=== PATIENT | male | born 1955 | race Caucasian/White ===

== ENCOUNTER → 2017-09-18 10:55 | Outpatient (CLI) | payer MEDICARE, SELFPAY | PROVIDERS: Family Provider Family Medicine; PCP Family Medicine; Visit Provider Podiatrist | DX: Z01.818 Encounter for other preprocedural examination (principal); Z01.812 Encounter for preprocedural laboratory examination | CPT/HCPCS: 93005; 93010 ==

== ENCOUNTER 2017-10-03 11:44 | Day surgery (SDC) | payer MEDICARE, SELFPAY ==
[2017-09-19 09:41] VITALS: BMI 36.2
[2017-10-03] VITALS (7 sets, daily range): BP systolic 127–148; BP diastolic 77–95; PULSE 75–108; RESP 12–16; TEMP 36.3–36.6; O2SAT 96–98; BMI 36.2
[2017-10-03] MEDS: LACTATED RINGERS 1,000 ML 42 ML IV (12:38)
[2017-10-03] MEDS: CEFAZOLIN VIAL 1 GM in SODIUM CHLORIDE 0.9% 100 ML 200 ML IV (13:14)
--- NOTE | 2017-10-03 13:16 | PM.PREOP ---
Pre-operative Note Interval Note Pre-op Check: Yes History & Physical Reviewed by Physician Changes: No
--- NOTE | 2017-10-03 13:56 | SUR.OPER ---
Supine on padded OR bed, head on pillow, arms secured on padded arm boards at <90 degrees abduction, right leg under control of surgeon, left leg taped over the blanket to the bed, safety belt at thigh; bump under right hip.
[2017-10-03] MEDS: BUPIVACAINE 0.5% (PF) VIAL 30 ML INJ (14:10)
--- NOTE | 2017-10-03 14:55 | P.OP_ITS ---
Operative Date/Time/Diagnoses Date of procedure: 10/03/17 Time of procedure: 14:49 Pre-op diagnosis: Right great toe joint arthritis and bone spur Post-op diagnosis: same Procedure & Clinicians Procedure: First metatarsophalangeal joint cheilectomy right foot Same procedure as scheduled: Yes Surgeon: Fe Vilchis Click Yes if Unassisted: Yes Anesthesia Type: General Operative Notes Closure Type: primary Specimen(s): none sent Estimated Blood Loss (mL): 50 Blood products transfused: none Procedure in detail: Patient was brought to the operating room and placed on the operating table in the supine position a tourniquet was placed about the calf the foot and ankle were prepped and draped in usual aseptic manner after induction of general anesthesia. The tourniquet was inflated after checking anesthesia incision was made over the dorsal aspect of 1st metatarsophalangeal joint of the right foot the incision was deepened through subcutaneous tissues being careful to identify and retract all vital neural and vascular structures. All bleeders were cauterized and ligated as necessary. Having some trouble with the potential effectiveness of the tourniquet so that original tourniquet was deflated and a sterile tourniquet was placed lower on the ankle this was then inflated and that helped a little with some of compression although he still seemed to have a little bit more bleeding than I would have considered based on the use of the tourniquet. 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 This was also done on the base of the proximal phalanx however there was not nearly as much spurring noted here. The area was irrigated with copious amounts normal sterile saline after a rasp was used to reduce the edges to make them smoother. Range of motion was a little bit better although still stiff but significantly less prominence in regards to the great toe joint and spurring. Tourniquet was deflated and this actually reduced the bleeding deep closure and subcutaneous closure was used with Vicryl and nylon to the skin. Sterile lightly compressive dressing was placed on the foot and he was transferred to the PACU with vital signs stable. Complications: none Condition: stable Disposition: PACU Plan for aftercare: Following a period of postoperative monitoring the patient be discharged home on written and oral postoperative instructions including keeping the dressing dry and intact avoiding significant ambulation to the foot , and elevating the foot when seated home. DVT prevention techniques were reviewed.
--- NOTE | 2017-10-03 16:19 | SUR.PHASEII ---
late enrty: pt wanting to leave, r foot c/d/i, iced, left in stable condition after dorathy, getting his meds from [facility]. [facility] called and picked pt up.
== END 2017-10-03 15:35 | disposition home or self-care (01) ==
PROVIDERS: Family Provider Family Medicine; PCP Family Medicine; Visit Provider Podiatrist
PROC: 0HTRXZZ Resection of Toe Nail, External Approach (ICD-10-PCS; CPT 28289; principal; 2017-10-03 12:45)
PROC: (CPT 28289; 2017-10-03 12:45)
DX: M19.071 Primary osteoarthritis, right ankle and foot (principal); I10 Essential (primary) hypertension; F43.10 Post-traumatic stress disorder, unspecified
CPT/HCPCS: 28289; J0690; J1100; J2405; J2704; J3010

== ENCOUNTER → 2017-12-12 10:59 | Outpatient (CLI) | payer MEDICARE, SELFPAY ==
--- NOTE | 2017-12-12 | DI.RAD.S_ITS ---
PROCEDURE: XR HIP W PEL IF DONE LT 2V INDICATIONS: Pain in unspecified hip TECHNIQUE: 2 views of the hip were acquired. COMPARISON: [facility] [place], [place], BILATERAL HIP 2VW, 02/28/2015, 9:28. [facility], SURYA, HIP 2V RIGHT, 12/22/2013, 12:24. FINDINGS: Bones: No fractures or dislocations. No suspicious bony lesions. The visualized pelvic ring appears intact. Moderate left hip degeneration. Soft tissues: No suspicious soft tissue calcifications or masses. Numerous vascular calcifications IMPRESSION: Moderate left hip degeneration, grossly unchanged since 02/28/15 Dictated by: Travis Gonsalez M.D. on 12/12/2017 at 11:33 Approved by: Travis Gonsalez M.D. on 12/12/2017 at 11:35
== END ==
PROVIDERS: PCP Internal Medicine; Visit Provider Internal Medicine
DX: M25.552 Pain in left hip (principal); M16.12 Unilateral primary osteoarthritis, left hip
CPT/HCPCS: 73502

== ENCOUNTER 2018-03-02 17:32 | Emergency (ER) | payer MEDICARE, MEDICAID, SELFPAY ==
--- NOTE | 2018-03-02 17:39 | DI.RAD.S_ITS ---
PROCEDURE: XR CHEST 1V INDICATIONS: seizure vs syncope TECHNIQUE: One view of the chest was acquired. COMPARISON: [facility], , CHEST 2 VIEW, 11/10/2015, 15:16. FINDINGS: Surgical changes and devices: Cervical fixation plates. Lungs and pleura: Minimal blunting of the costophrenic angles bilaterally, unchanged, likely scarring. Lungs are clear. Mediastinum: Mediastinal contours appear normal. Heart size is normal. Bones and chest wall: No suspicious bony lesions. Overlying soft tissues appear unremarkable. IMPRESSION: No acute pulmonary process. Dictated by: Raeann Wiggins M.D. on 03/02/2018 at 18:11 Approved by: Raeann Wiggins M.D. on 03/02/2018 at 18:11
--- NOTE | 2018-03-02 17:40 | DI.CT.S_ITS ---
PROCEDURE: CT HEAD/BRAIN WO CON INDICATIONS: seizure vs syncope TECHNIQUE: Noncontrast 4.5 mm thick angled axial sections acquired from the foramen magnum to the vertex, with coronal and sagittal reformats. For radiation dose reduction, the following was used: automated exposure control, adjustment of mA and/or kV according to patient size. COMPARISON: [facility], MR, BRAIN WITHOUT CONTRAST, 11/08/2016, 8:42. [facility], CT, HEAD WITHOUT CONTRAST, 02/05/2015, 11:15. FINDINGS: Image quality: Excellent. CSF spaces: Basal cisterns are patent. No extra-axial fluid collections. The ventricles are symmetric in size and shape. Brain: No intracranial bleeds or masses. There is cerebral volume loss for age, with resultant ventricular and sulcal prominence. There are periventricular and deep white matter chronic small vessel ischemic changes. There is intracranial internal carotid artery atherosclerosis. Skull and face: Calvarium and visualized facial bones appear intact, without suspicious lesions. Sinuses: Visualized sinuses and mastoids are clear. IMPRESSION: 1. No acute intracranial process. 2. Moderate atrophy and chronic microvascular ischemic changes. Dictated by: Raeann Wiggins M.D. on 03/02/2018 at 18:04 Approved by: Raeann Wiggins M.D. on 03/02/2018 at 18:05
[2018-03-02 17:45] VITALS: PULSE 95; RESP 17; O2SAT 100
[2018-03-02 17:47] VITALS: BP 181/94; PULSE 97; RESP 22; TEMP 36.9; O2SAT 100; BMI 21.5
[2018-03-02 18:09] LABS: Add Manual Diff / Slide Review NO; Basophils Absolute Auto 0 /uL (0-100); Basophils Percent Auto 0.6 % (0-2); Eosinophils Absolute Auto 0 /uL (0-450); Eosinophils Percent Auto 0.1 % (2-4); Hematocrit 47.3 % (41-53); Lymphocytes Absolute Auto 600 /uL (1100-4500); Lymphocytes Percent Auto 8.2 % (25-40); Mean Corpuscular HGB Conc 33.9 % (30-36); Mean Corpuscular Hemoglobin 33.7 PG (26-34); Mean Corpuscular Volume 99.3 fL (80-100); Monocytes Absolute Auto 500 /uL (0-900); Monocytes Percent Auto 6.7 % (3-14); Neutrophils Absolute Auto 6400 /uL (1500-7000); Neutrophils Percent Auto 84.4 % (50-75); Platelet Count 130 X10^3/uL (150-400); Red Blood Cell Count 4.77 X10^6/uL (4.5-5.9); Red Cell Distribution Width 14.2 % (11.6-14.8); White Blood Cell Count 7.6 X10^3/uL (4.5-11.0)
--- NOTE | 2018-03-02 18:14 | ED_ITS ---
HPI - Seizure General Chief Complaint: Seizure Stated Complaint: seizures Time Seen by Provider: 03/02/18 17:38 Source: patient Mode of arrival: EMS Limitations: no limitations History of Present Illness HPI Narrative: Patient is a 62-year-old male with a history of seizures. CC local primary physician but also a neurologist through the [place] system. He is taking Dilantin 2 times a day. He states that he is taking his seizure medication. States that his last seizure was greater than 1 year ago. He states that today he was going about his normal activities. He went to the bathroom and then had what he thinks is a seizure. He did bite his tongue. He states that he did urinate on himself. Has a bruise on the left side of his face. He states that a friend called EMS. At the time my evaluation he states that he feels almost back to baseline however is just tired and shaky. Brought into the emergency department for evaluation Related Data Home Medications Medication Instructions Recorded Confirmed diclofenac sodium 1 - 4 g TOPICAL SEEINSTR 09/19/17 10/03/17 phenytoin sodium extended 100 mg PO SEEINSTR 09/19/17 10/03/17 trazodone 25 mg PO HS PRN 09/19/17 10/03/17 Allergies Allergy/AdvReac Type Severity Reaction Status Date / Time meperidine [MEPERIDINE] AdvReac Unknown Vomiting Verified 03/02/18 18:23 Review of Systems Constitutional Denies fever(s), Denies headache(s) and Reports weakness Eyes Denies blurry vision, Denies diplopia and Denies eye pain ENT Ears, Nose, Mouth, and Throat: Denies headache(s), Denies disequilibrium, Denies throat swelling and Denies tongue swelling Cardiovascular Denies chest pain and Denies dyspnea Respiratory Denies cough and Denies dyspnea Gastrointestinal Gastrointestinal: Denies abdominal pain, Denies nausea and Denies vomiting Genitourinary Denies dysuria Musculoskeletal Denies back pain, Denies myalgias and Denies arthralgias Integumentary/Breasts Comments: Bruising to the lateral aspect of his left eye Neurologic Denies headache(s), Reports seizure-like activity, Denies paresthesias, Denies disequilibrium and Reports weakness Hematologic/Lymphatic Comments: Not on blood thinners Allergic/Immunologic Denies urticaria, Denies throat swelling and Denies tongue swelling PFSH Medical History Alcohol dependence, uncomplicated (Acute) Broken neck (Acute) Cervical spondylosis with myelopathy (Acute) Chronic toe pain, left foot (Acute) Deficiency of other vitamins (Acute) Depression (Acute) Diarrhea (Acute) Epilepsy, unspecified, not intractable, without status epilepticus (Acute) Essential hypertension, benign (Acute) GERD with esophagitis (Acute) Hallux rigidus (Acute) Hearing loss (Acute) Insomnia, unspecified (Acute) Left elbow fracture (Acute) Liver dysfunction (Acute) Marijuana dependence (Acute) Memory loss (Acute) Multiple falls (Acute) Osteoarthritis (Acute) Osteoarthritis of hips, bilateral (Acute) Osteoarthritis of knees, bilateral (Acute) Osteoarthrosis (Acute) PTSD (post-traumatic stress disorder) (Acute) Post-traumatic stress disorder, unspecified (Acute) Tinnitus (Acute) Surgical History H/O foot surgery (Acute) H/O thumb surgery (Acute) History of colonoscopy (Acute) History of esophagogastroduodenoscopy (EGD) (Acute) Social History household members: none Smoking Status: Current every day smoker Exam Initial Vital Signs Initial Vital Signs: Vital Signs Pulse Rate 95 H 03/02/18 17:45 Respiratory Rate 17 03/02/18 17:45 Pulse Oximetry 100 03/02/18 17:45 Const General: cooperative, healthy appearing, comfortable, well developed, well groomed and No acute distress Orientation: alert, awake and oriented x3 HENMT Head: other (Bruising to the lateral aspect of the left eye) Face and sinus: normal facial exam Mouth: oral mucosae normal Eyes Pupils: PERRL EOM: EOM intact bilaterally Chest Chest: normal inspection of the chest Resp Effort & Inspection: normal respiratory effort Auscultation: clear to auscultation bilaterally Cardio Rate: regular rate Rhythm: regular rhythm Pulses: radial pulses present GI Inspection: non-distended Palpation: soft, No firm and No tender Back/Spine/Pelvis Cervical Spine: No cervical muscular tenderness, No pain with cervical ROM, No cervical spinal tenderness and No step off deformity Thoracic/Lumbar Spine: No thoraco-lumbar spasm and No thoracic spinal tenderness Skin Other: Bruising lateral aspect left Neuro General: alert, awake and oriented x3 Cranial Nerves: CN's II-XI intact bilaterally Cognition: normal cognition Speech: speech normal Gait: normal gait Motor: muscle tone normal throughout Sensory Exam: no sensory deficits noted Extrem General: normal to inspection, full ROM and capillary refill normal Psych Appearance: grossly normal and well kempt Scores Nexus Score for C-Spine Focal Neurologic deficit present: No Midline spinal tenderness present: No Altered level of conciousness present: No Intoxication present: No Distracting Injury Present: No Nexus Criteria for C-spine: 0 Course Orders Ordered: ED Orders 03/02/18 17:20 Basic Metabolic Panel Stat Complete Blood Count AUTO DIFF Stat Ethanol (ETOH) Stat Magnesium Stat Phenytoin / Dilantin Stat Prolactin Stat 03/02/18 17:39 XR chest 1V Stat EKG-12 Lead Stat 03/02/18 17:40 CT head/brain wo con Stat Discontinued Medications Ondansetron HCl (Zofran) 4 mg IV NOW ONE Stop: 03/02/18 18:24 Last Admin: 03/02/18 18:25 Dose: 4 mg Vital Signs - 8 hr 03/02/18 17:45 03/02/18 17:47 03/02/18 18:30 Temperature 98.5 F Pulse Rate 95 H 97 H 93 H Respiratory Rate 17 22 18 Blood Pressure 181/94 H Blood Pressure [Left Arm] 169/105 H Pulse Oximetry 100 100 100 03/02/18 19:00 03/02/18 19:30 Temperature Pulse Rate 92 H 95 H Respiratory Rate 11 L 13 Blood Pressure Blood Pressure [Left Arm] 166/96 H 165/97 H Pulse Oximetry 100 98 MDM - Seizure Lab Data Attestation: I reviewed the patient's lab results. Result diagrams: 03/02/18 17:20 03/02/18 17:20 Lab Results 03/02/18 03/02/18 03/02/18 Range/Units 17:20 17:20 17:20 WBC 7.6 (4.5-11.0) X10^3/uL RBC 4.77 (4.5-5.9) X10^6/uL Hgb 16.0 (13.5-17.5) g/dL Hct 47.3 (41-53) % MCV 99.3 (80-100) fL MCH 33.7 (26-34) PG MCHC 33.9 (30-36) % RDW 14.2 (11.6-14.8) % Plt Count 130 L (150-400) X10^3/uL Neut % (Auto) 84.4 H (50-75) % Lymph % (Auto) 8.2 L (25-40) % [place] % (Auto) 6.7 (3-14) % Eos % (Auto) 0.1 L (2-4) % Baso % (Auto) 0.6 (0-2) % Neut # (Auto) 6400 (1655-0132) /uL Lymph # (Auto) 600 L (0229-2452) /uL [place] # (Auto) 500 (0-900) /uL Eos # (Auto) 0 (0-450) /uL Baso # (Auto) 0 (0-100) /uL Sodium 136 L (137-145) mmol/L Potassium 3.7 (3.4-5.1) mmol/L Chloride 99 (98-107) mmol/L Carbon Dioxide 20 L (22-32) mmol/L BUN 7 L (9-20) mg/dL Creatinine 0.70 (0.66-1.25) mg/dL Estimated GFR > 60.0 (>60) mL/min BUN/Creatinine Ratio 10.0 (6-22) Glucose 220 H (80-110) mg/dL Calcium 9.7 (8.4-10.2) mg/dL Magnesium 2.0 (1.6-2.3) mg/dL Prolactin 16.3 (3.7-17.9) ng/mL Phenytoin < 3.0 L (10-20) ug/mL Ethyl Alcohol Cancelled < 10 Imaging Data Chest x-ray: Radiologist's impression: PROCEDURE: XR CHEST 1V INDICATIONS: seizure vs syncope TECHNIQUE: One view of the chest was acquired. COMPARISON: [facility], , CHEST 2 VIEW, 11/10/2015, 15:16. FINDINGS: Surgical changes and devices: Cervical fixation plates. Lungs and pleura: Minimal blunting of the costophrenic angles bilaterally, unchanged, likely scarring. Lungs are clear. Mediastinum: Mediastinal contours appear normal. Heart size is normal. Bones and chest wall: No suspicious bony lesions. Overlying soft tissues appear unremarkable. IMPRESSION: No acute pulmonary process. Dictated by: Raeann Wiggins M.D. on 03/02/2018 at 18:11 CT scan - head: Radiologist's impression: PROCEDURE: CT HEAD/BRAIN WO CON INDICATIONS: seizure vs syncope TECHNIQUE: Noncontrast 4.5 mm thick angled axial sections acquired from the foramen magnum to the vertex, with coronal and sagittal reformats. For radiation dose reduction, the following was used: automated exposure control, adjustment of mA and/or kV according to patient size. COMPARISON: [facility], MR, BRAIN WITHOUT CONTRAST, 11/08/2016, 8:42. [facility], CT, HEAD WITHOUT CONTRAST, 02/05/2015, 11:15. FINDINGS: Image quality: Excellent. CSF spaces: Basal cisterns are patent. No extra-axial fluid collections. The ventricles are symmetric in size and shape. Brain: No intracranial bleeds or masses. There is cerebral volume loss for age , with resultant ventricular and sulcal prominence. There are periventricular and deep white matter chronic small vessel ischemic changes. There is intracranial internal carotid artery atherosclerosis. Skull and face: Calvarium and visualized facial bones appear intact, without suspicious lesions. Sinuses: Visualized sinuses and mastoids are clear. IMPRESSION: 1. No acute intracranial process. 2. Moderate atrophy and chronic microvascular ischemic changes. Dictated by: Raeann Wiggins M.D. on 03/02/2018 at 18:04 ECG Data Attestation: I personally reviewed and interpreted this ECG as follows: Prior ECG tracings: not available for review Interpretation: Sinus rhythm Ventricular rate at 90 Normal axis Normal QRS Normal QTC No ST T wave changes MDM Narrative Medical decision making narrative: Patient does look like he bit his tongue. He also had a loss of bladder function. He has a history of seizures. His history and physical exam was consistent with seizure-like activity. He states that he is taking his Dilantin however his Dilantin level here in the emergency department was below therapeutic level. Patient stated that he did not need another dose of because he was taking it at home. He ambulated to the bathroom. He drank fluids. Head CT was unremarkable. C-spine cleared by nexus. Will hold on further workup for now. Patient states that he felt well enough to go home. Informed him that he could not drive until he is cleared by his neurologist. Informed him that he needed to contact his neurologist and his primary care doctor tomorrow. He was encouraged to continue to take his Dilantin. Patient expressed understanding and agreement with plan. Discharge Plan Departure Patient Disposition: Home Clinical Impression: Seizure, Contusion of face Discharge Date/Time: 03/02/18 20:00 Interventions: ED Discharge Assessment Last Done: 03/02/18 19:58 Instructions: Seizure Disorder -- Adult, Seizure Safety Precautions-Adult Activity Restrictions/Additional Instructions: I recommend that you continue taking your Dilantin as directed. Because of your seizure your restricted from driving until your cleared by your neurologist. I recommend that tomorrow you contact your neurologist and also your primary care doctor for a follow-up. Return to the emergency department for any new or worsening symptoms Prescriptions: No Action phenytoin sodium extended 100 mg Capsule 100 mg PO SEEINSTR RF: 0 diclofenac sodium 1 % Gel 1 - 4 g TOPICAL SEEINSTR RF: 0 trazodone 50 MG tablet 25 mg PO HS PRN (Reason: Sleep) RF: 0
[2018-03-02 18:18] LABS: Blood Urea Nitrogen 7 mg/dL (9-20); Calcium 9.7 mg/dL (8.4-10.2); Carbon Dioxide 20 mmol/L (22-32); Chloride 99 mmol/L (98-107); Estimated Glomerular Filt Rate > 60.0 mL/min (>60); Ethanol (ETOH) < 10 mg/dL; Glucose 220 mg/dL (80-110); Potassium 3.7 mmol/L (3.4-5.1); Sodium 136 mmol/L (137-145)
[2018-03-02 18:20] LABS: HEMOLYSIS 51 (0-50); Phenytoin / Dilantin < 3.0 ug/mL (10-20)
[2018-03-02] MEDS: ONDANSETRON 4 MG/2 ML INJ IV (18:25)
[2018-03-02 18:30] VITALS: BP 169/105; PULSE 93; RESP 18; O2SAT 100
[2018-03-02 18:54] LABS: Prolactin 16.3 ng/mL (3.7-17.9)
[2018-03-02 19:00] VITALS: BP 166/96; PULSE 92; RESP 11; O2SAT 100
[2018-03-02 19:30] VITALS: BP 165/97; PULSE 95; RESP 13; O2SAT 98
== END 2018-03-02 20:00 | disposition home or self-care (01) ==
PROVIDERS: Emergency Medicine; Emergency Provider Emergency Medicine; Family Provider Family Medicine; PCP Internal Medicine
DX: R56.9 Unspecified convulsions (principal); S00.83XA Contusion of other part of head, initial encounter; W19.XXXA Unspecified fall, initial encounter
CPT/HCPCS: 70450; 71045; 80048; 80185; 80320; 83735; 84146; 85025; 93005; 93010; 96374; 99283; 99285; J2405

== ENCOUNTER → 2018-10-27 10:35 | Outpatient (CLI) | payer MEDICARE, MEDICAID, SELFPAY ==
--- NOTE | 2018-10-27 | DI.RAD.S_ITS ---
PROCEDURE: XR CHEST 2V INDICATIONS: CHEST PAIN TECHNIQUE: 2 views of the chest were acquired. COMPARISON: [facility], CR, XR CHEST 1V, 03/02/2018, 18:12. FINDINGS: Surgical changes and devices: Cervical spinal fixation hardware. Lungs and pleura: Lungs are clear. No pleural effusions or pneumothorax. Mediastinum: Mediastinal contours are normal. Heart size is normal. Chronic appearing left rib fractures. Age indeterminate mild anterior wedging of thoracolumbar vertebra IMPRESSION: No acute disease. Dictated by: Travis Gonsalez M.D. on 10/27/2018 at 11:54 Approved by: Travis Gonsalez M.D. on 10/27/2018 at 11:55
[2018-10-27 11:09] LABS: Add Manual Diff / Slide Review NO; Basophils Absolute Auto 100 /uL (0-100); Basophils Percent Auto 0.7 % (0-2); Eosinophils Absolute Auto 0 /uL (0-450); Eosinophils Percent Auto 0.1 % (2-4); Hematocrit 43.6 % (41-53); Hemoglobin 14.9 g/dL (13.5-17.5); Lymphocytes Absolute Auto 800 /uL (1100-4500); Lymphocytes Percent Auto 11.6 % (25-40); Mean Corpuscular HGB Conc 34.1 % (30-36); Mean Corpuscular Hemoglobin 33.8 PG (26-34); Mean Corpuscular Volume 98.9 fL (80-100); Monocytes Absolute Auto 600 /uL (0-900); Monocytes Percent Auto 7.9 % (3-14); Neutrophils Absolute Auto 5700 /uL (1500-7000); Neutrophils Percent Auto 79.7 % (50-75); Platelet Count 152 X10^3/uL (150-400); Red Blood Cell Count 4.41 X10^6/uL (4.5-5.9); Red Cell Distribution Width 13.3 % (11.6-14.8); White Blood Cell Count 7.1 X10^3/uL (4.5-11.0)
[2018-10-27 11:29] LABS: Blood Urea Nitrogen 6 mg/dL (9-20); Calcium 9.7 mg/dL (8.4-10.2); Carbon Dioxide 26 mmol/L (22-32); Chloride 99 mmol/L (98-107); Cholesterol 196 mg/dL (140-199); Estimated Glomerular Filt Rate > 60.0 mL/min (>60); Glucose 118 mg/dL (80-110); Potassium 4.5 mmol/L (3.4-5.1); Sodium 137 mmol/L (137-145); Triglycerides 57 mg/dL (35-150)
[2018-10-27 11:38] LABS: HEMOLYSIS < 15 (0-50)
[2018-10-27 11:40] LABS: Troponin I < 0.012 ng/mL (0.01-0.034)
[2018-10-27 11:43] LABS: HDL Cholesterol 114 mg/dL (40-60); LDL Cholesterol Calculated 71 mg/dL (<100)
== END ==
PROVIDERS: PCP Internal Medicine; Visit Provider Internal Medicine
DX: R07.9 Chest pain, unspecified (principal)
CPT/HCPCS: 36415; 71046; 80048; 80061; 84484; 85025

== ENCOUNTER → 2019-01-07 08:46 | Outpatient (CLI) | payer MEDICARE, MEDICAID, SELFPAY ==
[2019-01-07 10:03] LABS: Phenytoin / Dilantin < 3.0 ug/mL (10-20)
== END ==
PROVIDERS: PCP Internal Medicine; Visit Provider Internal Medicine
DX: G40.909 Epilepsy, unspecified, not intractable, without status epilepticus (principal)
CPT/HCPCS: 36415; 80185

== ENCOUNTER → 2019-01-18 10:05 | Outpatient (CLI) | payer MEDICARE, MEDICAID, SELFPAY ==
[2019-01-18 11:33] LABS: Phenytoin / Dilantin < 3.0 ug/mL (10-20)
== END ==
PROVIDERS: PCP Internal Medicine; Visit Provider Internal Medicine
DX: G40.909 Epilepsy, unspecified, not intractable, without status epilepticus (principal)
CPT/HCPCS: 36415; 80185

== ENCOUNTER 2019-12-15 09:45 | Emergency (ER) | payer MEDICARE, MEDICAID, SELFPAY ==
[2019-12-15 09:48] VITALS: BP 127/85; PULSE 101; RESP 16; TEMP 36.9; O2SAT 98; BMI 20.7
--- NOTE | 2019-12-15 09:51 | ED_ITS ---
HPI - Extremity Injury (Lower) General Chief Complaint: Extremity Injury, Lower Stated Complaint: right foot toes/injury x1 day Time Seen by Provider: 12/15/19 09:45 Source: patient Mode of arrival: Ambulatory Limitations: no limitations History of Present Illness HPI Narrative: 63-year-old male nonsmoker with history of seizure presents with an accidental injury to his right foot suffered yesterday. He was getting off a chair when he fell forward and buckled his foot a bit. He now has pain with ambulation and ecchymosis on various parts of his foot. He denies any numbness, tingling or weakness. He denies any other injury. He states his symptoms improved when he rests and or elevate his foot. He denies any head, neck or back pain. He denies any history of foot pain. MD complaint: foot injury Onset (ago): day(s) Injury: Right: foot Type of Injury: blunt and inversion Place: home Severity: moderate Relieving factors: immobilization and rest Exacerbating factors: movement and palpation Context: fall and direct blow Associated symptoms: swelling and ambulatory Other symptoms: none Related Data Home Medications Medication Instructions Recorded Confirmed diclofenac sodium 1 - 4 g TOPICAL SEEINSTR 09/19/17 10/03/17 phenytoin sodium extended 100 mg PO SEEINSTR 09/19/17 10/03/17 trazodone 25 mg PO HS PRN 09/19/17 10/03/17 Allergies Allergy/AdvReac Type Severity Reaction Status Date / Time meperidine [MEPERIDINE] AdvReac Unknown Vomiting Verified 03/02/18 18:23 Review of Systems Constitutional Constitutional: Denies chills, Denies fatigue, Denies fever(s), Denies frequent falls, Denies lethargy and Denies weakness Eyes Eyes: Denies change in vision, Denies eye discharge, Denies irritation and Denies loss of vision ENT Ears, Nose, Mouth, and Throat: Denies change in voice, Denies dizziness, Denies neck pain, Denies sore throat and Denies throat swelling Cardiovascular Cardiovascular: Denies chest pain, Denies irregular heart rhythm, Denies lightheadedness, Denies palpitations, Denies dyspnea, Denies dyspnea on exertion and Denies orthopnea Respiratory Respiratory: Denies cough, Denies dyspnea, Denies dyspnea on exertion and Denies wheezing Gastrointestinal Gastrointestinal: Denies abdominal pain, Denies change in bowel habits, Denies diarrhea, Denies nausea and Denies vomiting Musculoskeletal Musculoskeletal: Reports arthralgias, Reports joint swelling, Denies neck pain and Denies numbness Integumentary/Breasts Skin/Breast: Denies pruritus, Denies erythema, Denies rash and Denies wounds Neurologic Neurologic: Denies behavioral changes, Denies confusion, Denies dizziness, Denies frequent falls, Denies loss of vision, Denies numbness and Denies weakness Psychiatric Psychiatric: Denies anxiety, Denies behavioral changes, Denies confusion, Denies depression, Denies homicidal ideation and Denies suicidal ideation Endocrine Endocrine: Denies fatigue, Denies flushing and Denies palpitations Hematologic/Lymphatic Hematologic/Lymphatic: Denies easy bruising Allergic/Immunologic Allergic/Immunologic: Denies urticaria, Denies throat swelling and Denies wheezing Patient History Medical History Alcohol dependence, uncomplicated (Acute) Broken neck (Acute) Cervical spondylosis with myelopathy (Acute) Chronic toe pain, left foot (Acute) Deficiency of other vitamins (Acute) Depression (Acute) Diarrhea (Acute) Epilepsy, unspecified, not intractable, without status epilepticus (Acute) Essential hypertension, benign (Acute) GERD with esophagitis (Acute) Hallux rigidus (Acute) Hearing loss (Acute) Insomnia, unspecified (Acute) Left elbow fracture (Acute) Liver dysfunction (Acute) Marijuana dependence (Acute) Memory loss (Acute) Multiple falls (Acute) Osteoarthritis (Acute) Osteoarthritis of hips, bilateral (Acute) Osteoarthritis of knees, bilateral (Acute) Osteoarthrosis (Acute) Post-traumatic stress disorder, unspecified (Acute) PTSD (post-traumatic stress disorder) (Acute) Tinnitus (Acute) Surgical History H/O foot surgery (Acute) H/O thumb surgery (Acute) History of colonoscopy (Acute) History of esophagogastroduodenoscopy (EGD) (Acute) Social History household members: none Smoking Status: Current every day smoker alcohol intake: current Smoking Status: Current every day smoker alcohol intake frequency: 0-2 drinks per day Substance Use Type: marijuana Exam Narrative Exam Narrative: GEN: AOx3 and in mild distress EYES: Pupils are equal, round, and reactive to light and accommodation. Extraoccular muscles are intact bilaterally. There is no subconjunctival hemorrhage or exudate. CHEST: Lungs are clear to auscultation bilaterally and free of wheezes, rales, or rhonchi. Heart rate is regular rhythm, there are no murmurs, clicks, rubs, or gallops. There is no chest wall tenderness. ABD: Abdomen is soft and nontender. There is no guarding or rebound. Bowel sounds are normal in all 4 quadrants. There is no mass or organomegaly. EXT: Full and slightly painful range of motion of right foot. Tender to pal rhoades over the dorsum of the foot with some ecchymosis overlying the 5th metatarsal as well as multiple toes. He is able to ambulate to the department without much in the way of difficulty SKIN: Warm, pink, and dry. No erythema or rash Initial Vital Signs Initial Vital Signs: Vital Signs Temperature 98.4 F 12/15/19 09:48 Pulse Rate 101 H 12/15/19 09:48 Respiratory Rate 16 12/15/19 09:48 Blood Pressure 127/85 12/15/19 09:48 Pulse Oximetry 98 12/15/19 09:48 Procedures Orthopedic Splinting/Casting Injury #1: Side: left Lower Extremity Injury Location: foot and toe Lower Extremity Immobilizer: post-op shoe Post splinting neuro exam: intact Post splinting vascular exam: intact Placed by: Nursing Course Orders Ordered: ED Orders 12/15/19 10:23 XR foot RT min 3V Stat Vital Signs Vital signs: Vital Signs - 8 hr 12/15/19 09:48 Temperature 98.4 F Pulse Rate 101 H Respiratory Rate 16 Blood Pressure 127/85 Pulse Oximetry 98 MDM - Extremity Injury (Lower) Imaging Data Extremity x-ray #1: Radiologist's Impression: [address] [address] XRay Report Signed Patient: Shine Arthur PMR#: [id number] : 6Acct:[id number] Age/Sex: 63 / MDate of Service: 12/15/19 Loc: ED Accession Number: [id number] Procedure: XR foot RT min 3V Ordering Provider: Dilan Queen D.O. PROCEDURE: XR FOOT RT MIN 3V INDICATIONS: severe pain, bruising after injury TECHNIQUE: 3 views of the foot were acquired. COMPARISON: [facility], , FOOT 3V RIGHT, 12/22/2013, 12:24. [facility], , FOOT 3V LEFT, 12/22/2013, 12:24. FINDINGS: Bones: No fracture or dislocation. The bones have degenerative changes, most prominent at great toe metatarsophalangeal joint. Osteophytes are seen in the great toe interphalangeal joint and metatarsophalangeal joint. There is an avulsion fracture of the lateral aspect of the distal phalanx at the interphalangeal joint. Soft tissues: Soft tissues demonstrate atherosclerotic calcifications in the arteries in the foot. IMPRESSION: 1. Avulsion fracture of the lateral base of the distal phalanx of the great toe at the interphalangeal joint. 2. Severe degenerative changes of the great toe metatarsophalangeal joint. 3. Atherosclerotic calcifications. Dictated by: Rhys Moctezuma M.D. on 12/15/2019 at 10:51 Approved by: Rhys Moctezuma M.D. on 12/15/2019 at 10:59 Discharge Plan Departure Patient Disposition: Home Clinical Impression: Fracture of great toe Qualifiers: Encounter type: initial encounter Fracture type: closed Phalanx: distal Fracture alignment: nondisplaced Laterality: left Qualified Code(s): S92.425A - Nondisplaced fracture of distal phalanx of left great toe, initial encounter for closed fracture Discharge Date/Time: 12/15/19 11:14 Instructions: DI for Toe Fracture Activity Restrictions/Additional Instructions: *You have been diagnosed with [small fracture of your left big toe. The remainder of the bones in your foot x-ray appear unremarkable.] *What to do: *Take medications as directed: Tylenol or Motrin pain *Follow up with your primary care provider in 2-3 days, call for an appointment. Let them know you were seen in the Emergency Department and that we ask that you be seen in follow up *Return to ER if you should have any new, worsening or concerning symptoms, such as [increased pain, swelling, fever, chills or other bothersome symptoms] Prescriptions: No Action phenytoin sodium extended 100 mg Capsule 100 mg PO SEEINSTR RF: 0 diclofenac sodium 1 % Gel 1 - 4 g TOPICAL SEEINSTR RF: 0 trazodone 50 MG tablet 25 mg PO HS PRN (Reason: Sleep) RF: 0 Referrals: Ace Mak MD [Physician] - Julee Bledsoe MD [Primary Care Provider] -
--- NOTE | 2019-12-15 10:23 | DI.RAD.S_ITS ---
PROCEDURE: XR FOOT RT MIN 3V INDICATIONS: severe pain, bruising after injury TECHNIQUE: 3 views of the foot were acquired. COMPARISON: [facility], , FOOT 3V RIGHT, 12/22/2013, 12:24. [facility], , FOOT 3V LEFT, 12/22/2013, 12:24. FINDINGS: Bones: No fracture or dislocation. The bones have degenerative changes, most prominent at great toe metatarsophalangeal joint. Osteophytes are seen in the great toe interphalangeal joint and metatarsophalangeal joint. There is an avulsion fracture of the lateral aspect of the distal phalanx at the interphalangeal joint. Soft tissues: Soft tissues demonstrate atherosclerotic calcifications in the arteries in the foot. IMPRESSION: 1. Avulsion fracture of the lateral base of the distal phalanx of the great toe at the interphalangeal joint. 2. Severe degenerative changes of the great toe metatarsophalangeal joint. 3. Atherosclerotic calcifications. Dictated by: Rhys Moctezuma M.D. on 12/15/2019 at 10:51 Approved by: Rhys Moctezuma M.D. on 12/15/2019 at 10:59
--- NOTE | 2019-12-15 11:13 | PC.NURSE ---
pt has bruising to rt great toe.
== END 2019-12-15 11:14 | disposition home or self-care (01) ==
PROVIDERS: Emergency Provider Emergency Medicine; PCP Internal Medicine
DX: S92.425A Nondisplaced fracture of distal phalanx of left great toe, initial encounter for closed fracture (principal); W19.XXXA Unspecified fall, initial encounter
CPT/HCPCS: 29550; 73630; 99283

== ENCOUNTER 2020-05-21 06:25 | Observation (INO) | payer MEDICARE, MEDICAID, SELFPAY ==
[2020-05-21] VITALS (12 sets, daily range): BP systolic 114–168; BP diastolic 76–116; PULSE 92–135; RESP 14–23; TEMP 35.9–37.3; O2SAT 95–100; BMI 20.7
--- NOTE | 2020-05-21 06:31 | ED.NAVMDI ---
HPI - Nausea/Vomiting/Diarrhea General Chief complaint: Nausea/Vomiting/Diarrhea Stated complaint: Something stuck in throat Time Seen by Provider: 05/21/20 06:27 Source: patient Mode of arrival: Ambulatory Limitations: no limitations History of Present Illness HPI Narrative: 64-year-old male daily smoker presents with a chief complaint of the sensation of foreign body in his throat. He states he was eating some carrots last evening and a piece has become stuck and he has been unable to get liquids down without vomiting ever since. He feels it and points to his upper throat. He denies any fever or chills. He denies any chest pain, cough nor dizziness or lightheadedness. He has been to the operating room twice for removal of esophageal foreign body, most recently in 2016 when he had a piece of chicken easily pushed down into his stomach. No varices or strictures were noted at that time. MD complaint: nausea and vomiting Onset (ago): hour(s) Description of Vomiting: food contents Description of Diarrhea: none Associated Abdominal Pain: No Relieving factors: none Exacerbating factors: eating Associated symptoms: denies other symptoms Related Data Home Medications Medication Instructions Recorded Confirmed phenytoin sodium extended 100 mg PO QID 09/19/17 05/21/20 trazodone 25 mg PO HS PRN 09/19/17 05/21/20 Allergies Allergy/AdvReac Type Severity Reaction Status Date / Time meperidine [MEPERIDINE] AdvReac Unknown Vomiting Verified 05/21/20 08:38 Review of Systems Constitutional Constitutional: Denies chills, Denies fatigue, Denies fever(s), Denies frequent falls, Denies lethargy and Denies weakness Eyes Eyes: Denies change in vision, Denies eye discharge, Denies irritation and Denies loss of vision ENT Ears, Nose, Mouth, and Throat: Denies change in voice, Denies dizziness, Denies neck pain, Denies sore throat and Denies throat swelling Comments: Esophageal foreign body Cardiovascular Cardiovascular: Denies chest pain, Denies irregular heart rhythm, Denies lightheadedness, Denies palpitations, Denies dyspnea, Denies dyspnea on exertion and Denies orthopnea Respiratory Respiratory: Denies cough, Denies dyspnea, Denies dyspnea on exertion and Denies wheezing Gastrointestinal Gastrointestinal: Denies abdominal pain, Denies change in bowel habits, Denies diarrhea, Reports nausea and Reports vomiting Musculoskeletal Musculoskeletal: Denies neck pain and Denies numbness Integumentary/Breasts Skin/Breast: Denies pruritus, Denies erythema, Denies rash and Denies wounds Neurologic Neurologic: Denies behavioral changes, Denies confusion, Denies dizziness, Denies frequent falls, Denies loss of vision, Denies numbness and Denies weakness Psychiatric Psychiatric: Denies anxiety, Denies behavioral changes, Denies confusion, Denies depression, Denies homicidal ideation and Denies suicidal ideation Endocrine Endocrine: Denies fatigue, Denies flushing and Denies palpitations Hematologic/Lymphatic Hematologic/Lymphatic: Denies easy bruising Allergic/Immunologic Allergic/Immunologic: Denies urticaria, Denies throat swelling and Denies wheezing Patient History Medical History Alcohol dependence, uncomplicated Broken neck Cervical spondylosis with myelopathy Chronic toe pain, left foot Deficiency of other vitamins Depression Diarrhea Epilepsy, unspecified, not intractable, without status epilepticus Essential hypertension, benign GERD with esophagitis Hallux rigidus Hearing loss Insomnia, unspecified Left elbow fracture Liver dysfunction Marijuana dependence Memory loss Multiple falls Osteoarthritis Osteoarthritis of hips, bilateral Osteoarthritis of knees, bilateral Osteoarthrosis Post-traumatic stress disorder, unspecified PTSD (post-traumatic stress disorder) Tinnitus Surgical History H/O foot surgery H/O thumb surgery History of colonoscopy History of esophagogastroduodenoscopy (EGD) Social History household members: none Smoking Status: Current every day smoker alcohol intake: current Smoking Status: Current every day smoker alcohol intake frequency: 0-2 drinks per day Substance Use Type: marijuana Exam Narrative Exam Narrative: GENERAL: [64] year old patient appears stated age. Well-nourished, well-developed patient, in mild distress. HEAD: Atraumatic. Normocephalic. EYES: Pupils equal round and reactive. Extraocular motions intact. No scleral icterus. No injection or drainage. ENT: Nose without bleeding, purulent drainage. Throat without erythema, tonsillar hypertrophy or exudate. Airway patent. NECK: Trachea midline. Non tender CARDIOVASCULAR: Regular rate and rhythm without murmurs, gallops, or rubs. RESPIRATORY: Clear to auscultation. Breath sounds equal bilaterally. No wheezes, rales, or rhonchi. GASTROINTESTINAL: Abdomen soft, non-tender, nondistended. EXTREMITIES: No edema or joint tenderness. BACK: Nontender without deformity or crepitance. No flank tenderness. NEURO: AOx3. SKIN: No rash or erythema of visible areas Initial Vital Signs Initial Vital Signs: Vital Signs Temperature 96.7 F L 05/21/20 06:30 Pulse Rate 135 H 05/21/20 06:30 Respiratory Rate 17 05/21/20 06:30 Blood Pressure 168/100 H 05/21/20 06:30 Pulse Oximetry 95 05/21/20 06:30 Course Orders Ordered: Discontinued Medications Glucagon (Glucagon,Human Recombinant 1 Mg/Ml Vial) 1 mg IV NOW ONE Stop: 05/21/20 06:31 Last Admin: 05/21/20 06:37 Dose: 1 mg Documented by: RO Lactated Ringer's (Lactated Ringers) 1,000 mls @ 42 mls/hr IV CONT BELKIS Last Infusion: 05/21/20 09:33 Dose: 0 mls/hr Documented by: Admin: 05/21/20 08:47 Dose: 42 mls/hr Documented by: BRANDY Ondansetron HCl (Ondansetron 4 Mg/2 Ml Inj) 4 mg IV NOW ONE Stop: 05/21/20 07:53 Last Admin: 05/21/20 07:55 Dose: 4 mg Documented by: GRACIA Ondansetron HCl (Ondansetron 4 Mg/2 Ml Inj) 4 mg IV NOW PRN PRN Reason: Nausea And Vomiting Phenytoin (Phenytoin 50 Mg Chew Tab) 100 mg PO NOW ONE Stop: 05/21/20 09:26 Last Admin: 05/21/20 09:48 Dose: 100 mg Documented by: BRANDY Prochlorperazine (Prochlorperazine 10 Mg/2 Ml Vial) 10 mg IV Q6HR PRN PRN Reason: nausea Reevaluation(s) Reevaluation #1: Initially an attempt to drink some water was performed and he kept it down for about 30 seconds before vomiting. Glucagon 1 mg IV was ordered, followed very closely by adan curran which immediately came back up. Surgery paged Consultations Consultation #1: Dr. Zheng on his way in to see patient MDM - Nausea/Vomiting/Diarrhea Lab Data Result diagrams: 05/21/20 06:35 05/21/20 06:35 Labs: Lab Results 05/21/20 05/21/20 05/21/20 Range/Units 06:35 06:35 06:40 WBC 8.2 (4.5-11.0) X10^3/uL RBC 4.60 (4.5-5.9) X10^6/uL Hgb 15.9 (13.5-17.5) g/dL Hct 46.8 (41-53) % MCV 101.6 H (80-100) fL MCH 34.6 H (26-34) PG MCHC 34.0 (30-36) % RDW 13.5 (11.6-14.8) % Plt Count 161 (150-400) X10^3/uL Neut % (Auto) 67.1 (50-75) % Lymph % (Auto) 20.5 L (25-40) % [place] % (Auto) 10.6 (3-14) % Eos % (Auto) 0.9 L (2-4) % Baso % (Auto) 0.9 (0-2) % Neut # (Auto) 5500 (8570-7639) /uL Lymph # (Auto) 1700 (5436-3200) /uL [place] # (Auto) 900 (0-900) /uL Eos # (Auto) 100 (0-450) /uL Baso # (Auto) 100 (0-100) /uL Sodium 138 (137-145) mmol/L Potassium 4.5 (3.4-5.1) mmol/L Chloride 104 (98-107) mmol/L Carbon Dioxide 21 L (22-32) mmol/L BUN 6 L (9-20) mg/dL Creatinine 0.64 L (0.66-1.25) mg/dL Estimated GFR > 60.0 (>60) mL/min BUN/Creatinine Ratio 9.4 (6-22) Glucose 105 (80-110) mg/dL Calcium 9.4 (8.4-10.2) mg/dL SARS-CoV-2 (PCR) Negative (Negative) Discharge Plan Departure Patient Disposition: Admitted to Surgery Clinical Impression: Esophageal foreign body Qualifiers: Encounter type: initial encounter Qualified Code(s): T18.108A - Unspecified foreign body in esophagus causing other injury, initial encounter Admit Date/Time: 05/21/20 06:48 Admit Provider: Jhonathan Zheng
[2020-05-21] MEDS: GLUCAGON,HUMAN RECOMBINANT 1 MG/ML VIAL IV (06:37)
[2020-05-21 06:49] LABS: Add Manual Diff / Slide Review NO; Basophils Absolute Auto 100 /uL (0-100); Basophils Percent Auto 0.9 % (0-2); Eosinophils Absolute Auto 100 /uL (0-450); Eosinophils Percent Auto 0.9 % (2-4); Hematocrit 46.8 % (41-53); Hemoglobin 15.9 g/dL (13.5-17.5); Lymphocytes Absolute Auto 1700 /uL (1100-4500); Lymphocytes Percent Auto 20.5 % (25-40); Mean Corpuscular Hemoglobin 34.6 PG (26-34); Mean Corpuscular Volume 101.6 fL (80-100); Monocytes Absolute Auto 900 /uL (0-900); Monocytes Percent Auto 10.6 % (3-14); Neutrophils Absolute Auto 5500 /uL (1500-7000); Neutrophils Percent Auto 67.1 % (50-75); Platelet Count 161 X10^3/uL (150-400); Red Cell Distribution Width 13.5 % (11.6-14.8); White Blood Cell Count 8.2 X10^3/uL (4.5-11.0)
--- NOTE | 2020-05-21 06:49 | DI.RAD.S_ITS ---
PROCEDURE: XR CHEST 1V INDICATIONS: foreign body TECHNIQUE: One view of the chest was acquired. COMPARISON: [facility], CR, XR CHEST 2V, 10/27/2018, 10:45. FINDINGS: Surgical changes and devices: Anterior cervical discectomy and fusion in the lower cervical spine. No evidence of intrathoracic surgical change or devices. Lungs and pleura: Lungs are clear. No pleural effusions or pneumothorax. Mediastinum: Mediastinal contours appear normal. Heart size is normal. Bones and chest wall: No suspicious bony lesions. Remote healed posterolateral left-sided rib fractures. Degenerative changes of the spine and shoulders. Overlying soft tissues appear unremarkable. No radiopaque foreign body. IMPRESSION: No acute cardiopulmonary abnormality. No radiopaque foreign body. Dictated by: Live Henao M.D. on 05/21/2020 at 7:56 Approved by: Live Henao M.D. on 05/21/2020 at 7:57
--- NOTE | 2020-05-21 06:53 | PC.NURSE ---
Pt ate a carrot last night and states feel like its stuck in his throat. patient unable to drink water but manage saliva. Tried glucagon with soda with no success.
[2020-05-21 07:00] LABS: BUN Creatinine Ratio 9.4 (6-22); Blood Urea Nitrogen 6 mg/dL (9-20); Calcium 9.4 mg/dL (8.4-10.2); Carbon Dioxide 21 mmol/L (22-32); Chloride 104 mmol/L (98-107); Estimated Glomerular Filt Rate > 60.0 mL/min (>60); Glucose 105 mg/dL (80-110); HEMOLYSIS 19 (0-50); Potassium 4.5 mmol/L (3.4-5.1); Sodium 138 mmol/L (137-145)
--- NOTE | 2020-05-21 07:31 | P.HP_ITS ---
History of Present Illness History of Present Illness Date Patient Seen: 05/21/20 Time Patient Seen: 07:31 Chief complaint: Something stuck in throat Narrative: The patient the patient is a gentleman here for because he was eating and has a piece of food stuck in his esophagus. He has had t this happen once before. He denies chest pain. The food feels like it is stuck in his lower chest area. He did not respond to noninvasive measures to get the food to pass. Patient History Medical History Alcohol dependence, uncomplicated Broken neck Cervical spondylosis with myelopathy Chronic toe pain, left foot Deficiency of other vitamins Depression Diarrhea Epilepsy, unspecified, not intractable, without status epilepticus Essential hypertension, benign GERD with esophagitis Hallux rigidus Hearing loss Insomnia, unspecified Left elbow fracture Liver dysfunction Marijuana dependence Memory loss Multiple falls Osteoarthritis Osteoarthritis of hips, bilateral Osteoarthritis of knees, bilateral Osteoarthrosis Post-traumatic stress disorder, unspecified PTSD (post-traumatic stress disorder) Tinnitus Surgical History H/O foot surgery H/O thumb surgery History of colonoscopy History of esophagogastroduodenoscopy (EGD) Family & Social History Social History: household members none Safety & Behavioral: Feels Safe in Current Yes Environment Tobacco & Substance use: Smoking Status Current every day smoker alcohol intake frequency 0-2 drinks per day Substance Use Type marijuana Meds Home Medications and Allergies Home Medications Medication Instructions Recorded Confirmed Type diclofenac sodium 1 - 4 g TOPICAL SEEINSTR 09/19/17 10/03/17 History phenytoin sodium extended 100 mg PO SEEINSTR 09/19/17 10/03/17 History trazodone 25 mg PO HS PRN 09/19/17 10/03/17 History Allergies Allergy/AdvReac Type Severity Reaction Status Date / Time meperidine [MEPERIDINE] AdvReac Unknown Vomiting Verified 03/02/18 18:23 Review of Systems Review of Systems Narrative: Patient has no cough cold or asthma. No chest pain or prior heart problems. No black or bloody bowel movements. Last colonoscopy was about a year ago. No syncope but he does have seizures. He normally takes medicine for it starting in the morning but has not taken his morning dose. Exam Vital Signs (past 8 hours): - 05/21/20 06:30 05/21/20 06:59 Temperature 96.7 F L Pulse Rate 135 H 95 H Respiratory Rate 17 Blood Pressure 168/100 H Pulse Oximetry 95 100 Oxygen Delivery Method Room Air Narrative Exam Narrative: Cooperative gentleman shaking visibly in no apparent distress.(the patient states that he does not always shake but sometimes he does it) eyes are nonicteric. No nodes in the neck supraclavicular areas. Oral m [place] is dry. No open lesions seen. Lungs are clear to auscultation. No rales or rhonchi. Heart regular rate and rhythm without murmur gallop. Abdomen is scaphoid soft. The doughy. Very little muscle tone. No palpable masses or tenderness. Patient is alert and oriented. Speech rate and content are appropriate. Objective Labs Result Diagrams: 05/21/20 06:35 05/21/20 06:35 Labs: Laboratory Results - last 24 hr 05/21/20 05/21/20 06:35 06:35 WBC 8.2 RBC 4.60 Hgb 15.9 Hct 46.8 MCV 101.6 H MCH 34.6 H MCHC 34.0 RDW 13.5 Plt Count 161 Neut % (Auto) 67.1 Lymph % (Auto) 20.5 L [place] % (Auto) 10.6 Eos % (Auto) 0.9 L Baso % (Auto) 0.9 Neut # (Auto) 5500 Lymph # (Auto) 1700 [place] # (Auto) 900 Eos # (Auto) 100 Baso # (Auto) 100 Sodium 138 Potassium 4.5 Chloride 104 Carbon Dioxide 21 L BUN 6 L Creatinine 0.64 L Estimated GFR > 60.0 BUN/Creatinine Ratio 9.4 Glucose 105 Calcium 9.4 Assessment & Plan Assessment & Plan narrative: Patient with food obstructing his esophagus. He thinks it is a carrot. I talked to him about an EGD. Will do this under general anesthesia at a protect his airway. All questions were answered. Risks of bleeding perforation were discussed. Also the possibility of aspiration. Seizure meds after obstruction is cleared.
[2020-05-21 07:32] LABS: COVID19 - ADMIT (NP swab/PCR) Negative (Negative)
--- NOTE | 2020-05-21 07:38 | PM.PREOP ---
Pre-operative Note COVID-19 COVID-19 status: Negative Result date/Date tested (Pos, Neg/Pending): 05/21/20 Interval Note History & Physical reviewed/Exam performed by Physician: Yes Changes to H&P: No
[2020-05-21] MEDS: ONDANSETRON 4 MG/2 ML INJ IV (07:55)
[2020-05-21] MEDS: LACTATED RINGERS 1,000 ML 42 ML IV (08:47)
--- NOTE | 2020-05-21 09:19 | PM.OP.ENDO ---
Operative Date/Time/Diagnoses Date of procedure: 05/21/20 Time of procedure: 09:19 Pre-op diagnosis: Obstructed esophagus from food Post-op diagnosis: same Procedure & Clinicians Study performed: EGD with removal of foreign body Same procedure as scheduled: Yes Indications: Unable to swallow our vomit due to food stuck in his esophagus Surgeon: Jhonathan Zheng Procedure Notes SCOAP/Timeout: Performed Procedure in detail: The patient underwent general endotracheal anesthesia to protect his airway. A bite block was inserted and the scope was advanced through it into the esophagus. The esophagus was unremarkable until I reach the distal esophagus. There was a piece of food that appeared to be meat wedged into the esophagus. A snare was inserted and I was able to grasp it and pull the scope snare and piece of food out through the mouth. I reinserted the scope. The esophagus was now normal except for some minor irritation with the food had been lodged.. GE junction was noted at 40 cm from the incisors.. The stomach insufflated well. There were no lesions seen in the body, antrum or at the incisura. The pyloric channel was patent. The duodenum was unremarkable to the 3rd part. The scope was brought back into the stomach and retroflexed. The proximal stomach normal in appearance. The scope was straightened and brought out through the esophagus again. No lesions were seen. The scope was removed and the patient tolerated the procedure well. Scope withdrawal time: Not applicable Sedation minutes: 0 (Patient underwent general anesthesia to protect his airway from aspiration of the material above the obstructed food.) Findings: other findings (Food obstructed by a large piece of meat.) Specimen(s): none sent Complications: none Post-procedure Recommendations: Other recommendation (To your food very well. Do not swallow large pieces of food. Cut your meat into smaller pieces before thoroughly chewing it in swallowing it..) Follow up: as needed Disposition: PACU
[2020-05-21] MEDS: PHENYTOIN 50 MG CHEW TAB 100 MG PO (09:48)
--- NOTE | 2020-05-21 09:57 | CM.DPNOTE ---
DCPlanning note: Case received, discussed in Team Rounds. RN coordinator Cassie clarified that pt has been taken directly to the OR for removal of foreign body (documentation states large piece of meat in esophagus) and that he was discharging directly form surgery area. His ride is here to pick him up. He did not admit to room 201 as intially anticipated.
== END 2020-05-21 09:56 | disposition home or self-care (01) ==
LOC: ED 06:42 → AC 06:50
PROVIDERS: Admitting Provider Specialist; Emergency Provider Emergency Medicine; PCP Internal Medicine; Referring Provider Emergency Medicine; Visit Provider Specialist
PROC: 0DJ08ZZ Inspection of Upper Intestinal Tract, Via Natural or Artificial Opening Endoscopic (ICD-10-PCS; CPT 43235; principal; 2020-05-21 08:00)
DX: T18.128A Food in esophagus causing other injury, initial encounter (principal); F10.20 Alcohol dependence, uncomplicated; F17.210 Nicotine dependence, cigarettes, uncomplicated; Z20.822 Contact with and (suspected) exposure to COVID-19
CPT/HCPCS: 43247; 36415; 71045; 80048; 85025; 87635; 96361; 96374; 96375; 99218; 99284; G0378; J0330; J1610; J2250; J2405; J2704

== ENCOUNTER 2020-07-19 10:02 | Emergency (ER) | payer MEDICARE, MEDICAID, SELFPAY ==
[2020-07-19 10:17] VITALS: BP 163/95; PULSE 101; RESP 14; TEMP 37.2; O2SAT 96; BMI 20.7
--- NOTE | 2020-07-19 10:25 | DI.RAD.S_ITS ---
PROCEDURE: XR RIBS LT MIN 3V W CXR1V INDICATIONS: fall with left posterior rib pain TECHNIQUE: 2 views of the left ribs were acquired, along with a single view chest. COMPARISON: [facility], CR, XR CHEST 1V, 03/02/2018, 18:12. [facility], CR, XR CHEST 1V, 05/21/2020, 6:54. FINDINGS: Surgical changes and devices: ACDF. Bones and chest wall: No fractures or dislocations. No suspicious bony lesions. Overlying soft tissues appear unremarkable. Lungs and pleura: Skin BB marker overlying the inferior left ribs. No acute displaced fracture. 8 in 9 left rib fractures which appear subacute or chronic. No pleural effusions or pneumothorax. Lungs appear clear. No consolidation. Left arm cerclage wires. Mediastinum: Mediastinal contours appear normal. Heart size is normal. IMPRESSION: No acute displaced fracture seen. Chronic left 8-9th rib fractures. Lungs appear clear. Dictated by: Josh Vang M.D. on 07/19/2020 at 11:03 Approved by: Josh Vang M.D. on 07/19/2020 at 11:09
--- NOTE | 2020-07-19 11:14 | ED.FALL ---
HPI - Fall General Chief Complaint: Fall Stated Complaint: possible broken ribs Time Seen by Provider: 07/19/20 11:10 Source: patient Mode of arrival: Ambulatory Limitations: no limitations History of Present Illness HPI Narrative: Patient is a 64-year-old male here for evaluation of left-sided rib pain. He states that last evening he tripped and fell hitting his left side on the coffee table. He did not hit his head. He is not on blood thinners. There was no loss of consciousness. Reports no other injuries from the event. Since that time he has had discomfort on his left ribs specifically with taking deep breaths and also touching the area. Has not tried anything for the symptoms prior to arrival. Related Data Home Medications Medication Instructions Recorded Confirmed phenytoin sodium extended 100 mg PO QID 09/19/17 05/21/20 trazodone 25 mg PO HS PRN 09/19/17 05/21/20 Previous Rx's Medication Instructions Recorded hydrocodone-acetaminophen 1 tab PO Q8H PRN #6 tab 07/19/20 Allergies Allergy/AdvReac Type Severity Reaction Status Date / Time meperidine [MEPERIDINE] AdvReac Unknown Vomiting Verified 07/19/20 10:27 Review of Systems Constitutional Constitutional: Denies fever(s) Cardiovascular Cardiovascular: Reports chest pain (Left-sided flank pain) Respiratory Respiratory: Reports pain on inspiration Gastrointestinal Gastrointestinal: Denies nausea and Denies vomiting Integumentary/Breasts Comments: No bruising Hematologic/Lymphatic On Anticoagulants: No Allergic/Immunologic Allergic/Immunologic: Reports system reviewed and no additional complaints, except as documented Patient History Medical History Alcohol dependence, uncomplicated Broken neck Cervical spondylosis with myelopathy Chronic toe pain, left foot Deficiency of other vitamins Depression Diarrhea Epilepsy, unspecified, not intractable, without status epilepticus Essential hypertension, benign GERD with esophagitis Hallux rigidus Hearing loss Insomnia, unspecified Left elbow fracture Liver dysfunction Marijuana dependence Memory loss Multiple falls Osteoarthritis Osteoarthritis of hips, bilateral Osteoarthritis of knees, bilateral Osteoarthrosis Post-traumatic stress disorder, unspecified PTSD (post-traumatic stress disorder) Tinnitus Surgical History H/O foot surgery H/O thumb surgery History of colonoscopy History of esophagogastroduodenoscopy (EGD) Social History household members: none Smoking Status: Current every day smoker alcohol intake: current Smoking Status: Current every day smoker alcohol intake frequency: 3 or more drinks per day Substance Use Type: marijuana Exam Initial Vital Signs Initial Vital Signs: Vital Signs Temperature 98.9 F 07/19/20 10:17 Pulse Rate 101 H 07/19/20 10:17 Respiratory Rate 14 07/19/20 10:17 Blood Pressure 163/95 H 07/19/20 10:17 Pulse Oximetry 96 07/19/20 10:17 Const General: cooperative Limitations: mental status not altered HENMT Head: normal to inspection and normocephalic Chest Chest: No crepitus and tenderness (Left-sided flank) Resp Effort & Inspection: normal respiratory effort Auscultation: clear to auscultation bilaterally Cardio Rate: regular rate Rhythm: regular rhythm Skin Lesions: no lesions Rashes: no rashes Neuro General: patient alert and patient awake Cognition: normal cognition Speech: speech normal Extrem General: capillary refill normal Psych Appearance: grossly normal and well kempt Course Orders Ordered: ED Orders 07/19/20 11:15 RT Consult Eval and Treat Now Discontinued Medications Hydrocodone Bitart/Acetaminophen (Hydrocodone/Acet 5/325 Tablet) 1 tab PO NOW ONE Stop: 07/19/20 11:16 Last Admin: 07/19/20 12:08 Dose: 1 tab Documented by: TATYANA Ondansetron HCl (Ondansetron 8 Mg Tablet) 4 mg PO NOW ONE Stop: 07/19/20 11:52 Last Admin: 07/19/20 11:55 Dose: Not Given Documented by: SAIDA Ondansetron HCl (Ondansetron 4 Mg Odt) 4 mg SL NOW ONE Stop: 07/19/20 11:55 Last Admin: 07/19/20 12:09 Dose: 4 mg Documented by: TATYANA Vital Signs Vital signs: Vital Signs - 8 hr 07/19/20 11:59 Pulse Rate 98 H Respiratory Rate 18 Blood Pressure 164/109 H Pulse Oximetry 99 MDM - Fall Imaging Data Rib x-rays: Radiologist's Impression: [address] [id number] ReportSigned Patient: Shine Arthur PMR#: [id number]: 6Acct:[id number]/Sex: 64 / MDate of Service: 07/19/20Loc: EDAccession Number: [id number] Procedure: XR ribs LT min 3V w CXR1V Ordering Provider: Jostin Diallo D.O. PROCEDURE: XR RIBS LT MIN 3V W CXR1V INDICATIONS: fall with left posterior rib pain TECHNIQUE: 2 views of the left ribs were acquired, along with a single view chest. COMPARISON: [facility], CR, XR CHEST 1V, 03/02/2018, 18:12. [facility], CR, XR CHEST 1V, 05/21/2020, 6:54. FINDINGS: Surgical changes and devices: ACDF. Bones and chest wall: No fractures or dislocations. No suspicious bony lesions. Overlying soft tissues appear unremarkable. Lungs and pleura: Skin BB marker overlying the inferior left ribs. No acute displaced fracture. 8 in 9 left rib fractures which appear subacute or chronic. No pleural effusions or pneumothorax. Lungs appear clear. No consolidation. Left arm cerclage wires. Mediastinum: Mediastinal contours appear normal. Heart size is normal. IMPRESSION: No acute displaced fracture seen. Chronic left 8-9th rib fractures. Lungs appear clear. Dictated by: Josh Vang M.D. on 07/19/2020 at 11:03 Approved by: Josh Vang M.D. on 07/19/2020 at 11:09 MDM Narrative Medical decision making narrative: Patient is no respiratory distress. He is tender to palpation over the areas with a chronic rib fractures were seen on the rib x-ray. The underlying lung appears well. There no new displaced rib fractures seen. Had a discussion with the patient regarding this. We discussed that there could potentially be a nondisplaced fracture that we are missing on the x-ray however treatment for bruised rib verses this type fracture his conservative treatment. We discussed the importance of taking deep breaths and strict return precautions. He expressed understanding and agreement. Discharge Plan Departure Patient Disposition: Home Clinical Impression: Contusion of rib on left side Instructions: DI for Rib Contusion Activity Restrictions/Additional Instructions: There were no displaced fractures of the ribs noted on the x-rays however there potentially could be a nondisplaced fracture. Unfortunately these types of injuries can be very painful especially for coughing or seizing. Sometimes holding this area when you cough or sneeze can be helpful. Contact your primary provider for follow-up. Return to the emergency department for any fevers or problems breathing. Prescriptions: New hydrocodone-acetaminophen 5-325 mg tablet 1 tab PO Q8H PRN (Reason: pain) Qty: 6 RF: 0 No Action phenytoin sodium extended 100 mg Capsule 100 mg PO QID RF: 0 trazodone 50 MG tablet 25 mg PO HS PRN (Reason: Sleep) RF: 0 Referrals: Julee Bledsoe MD [Primary Care Provider] -
[2020-07-19 11:59] VITALS: BP 164/109; PULSE 98; RESP 18; O2SAT 99
[2020-07-19] MEDS: HYDROCODONE/ACET 5/325 TABLET 1 TAB PO (12:08)
[2020-07-19] MEDS: ONDANSETRON 4 MG ODT SL (12:09)
== END 2020-07-19 12:16 | disposition home or self-care (01) ==
PROVIDERS: Emergency Provider Emergency Medicine; PCP Internal Medicine
DX: S20.212A Contusion of left front wall of thorax, initial encounter (principal); W19.XXXA Unspecified fall, initial encounter
CPT/HCPCS: 71101; 99283

== ENCOUNTER 2022-01-07 10:02 | Emergency (ER) | payer MEDICARE, MEDICAID, SELFPAY ==
[2022-01-07 10:30] VITALS: BP 124/88; PULSE 70; RESP 18; TEMP 36.7; O2SAT 99; BMI 20.7
--- NOTE | 2022-01-07 10:41 | DI.CT.S_ITS ---
PROCEDURE: CT HEAD/BRAIN WO CON INDICATIONS: Trauma TECHNIQUE: Noncontrast 4.5 mm thick angled axial sections acquired from the foramen magnum to the vertex, with coronal and sagittal reformats. For radiation dose reduction, the following was used: automated exposure control, adjustment of mA and/or kV according to patient size. COMPARISON: [facility], CT, CT HEAD/BRAIN WO CON, 03/02/2018, 17:40. FINDINGS: Image quality: Excellent. CSF spaces: Basal cisterns are patent. No extra-axial fluid collections. The ventricles are symmetric in size and shape. Brain: No intracranial bleeds or masses. There is cerebral volume loss for age, with resultant ventricular and sulcal prominence. There are periventricular and deep white matter chronic small vessel ischemic changes. There is intracranial internal carotid artery atherosclerosis. Skull and face: Calvarium and visualized facial bones appear intact, without suspicious lesions. Sinuses: Visualized sinuses and mastoids are clear. IMPRESSION: No evidence acute intracranial process. Dictated by: Diego Ring M.D. on 01/07/2022 at 11:28 Approved by: Diego Ring M.D. on 01/07/2022 at 11:28
--- NOTE | 2022-01-07 10:41 | DI.RAD.S_ITS ---
PROCEDURE: XR SHOULDER RT MIN 2V INDICATIONS: fall, right shoulder pain, right lat neck pain, ecchymosis TECHNIQUE: 3 views of the shoulder were acquired. COMPARISON: None. FINDINGS: Bones: Comminuted, displaced distal clavicular fracture. No other fractures or dislocations. No suspicious bony lesions. Visualized ribs appear intact. Soft tissues: No suspicious soft tissue calcifications. IMPRESSION: Comminuted, displaced distal clavicular fracture. Dictated by: Diego Ring M.D. on 01/07/2022 at 11:19 Approved by: Diego Ring M.D. on 01/07/2022 at 11:20
--- NOTE | 2022-01-07 10:41 | DI.CT.S_ITS ---
PROCEDURE: CT CERVICAL SPINE WO CON INDICATIONS: Trauma TECHNIQUE: Noncontrast 3 mm thick sections acquired from the skull base to the T4 level. Sagittal and coronal reformats were then constructed. For radiation dose reduction, the following was used: automated exposure control, adjustment of mA and/or kV according to patient size. COMPARISON: [facility], CT, CT CHEST ABD PEL W CON, 01/07/2022, 11:05. FINDINGS: Image quality: Excellent. Bones: No fractures or dislocations. Visualized superior ribs are intact. There has been previous ACDF at C5 through C7 with C6 corpectomy. There is bone graft material which has an oblique configuration, coursing along the previous location of C6. Some of the graft extends into the canal at its superior aspect. It does not result in canal stenosis, as the canal measures at least 10 mm at its narrowest point. There is separation of the anterior plate from C5, which is likely a chronic finding. The C5 screws and C7 screws do not have loosening. There is no hardware fracture noted. Prominent facet arthropathy at C3-C4 bilaterally. Soft tissues: Prevertebral soft tissues are normal in thickness. No paravertebral hematomas. No apical pneumothoraces. IMPRESSION: 1. No evidence of acute cervical fracture or dislocation. 2. Remote ACDF at C5 through C7 with C6 corpectomy. As described, there is a bone graft which has an oblique configuration, with its superior aspect extending slightly into the canal, without canal stenosis. There is also separation between the anterior plate and C5 vertebral body. Although, there is no evidence of hardware loosening. Comment: The findings at C5 through C7 are most likely chronic findings. However, recommend careful correlation for presence or absence of new symptomatology, and comparison to prior studies from other institutions which would determine the chronicity or acuity of the findings at these levels. Dictated by: Diego Ring M.D. on 01/07/2022 at 11:56 Approved by: Diego Ring M.D. on 01/07/2022 at 12:14
--- NOTE | 2022-01-07 10:41 | DI.CT.S_ITS ---
PROCEDURE: CT CHEST ABD PEL W CON INDICATIONS: Trauma TECHNIQUE: After the administration of intravenous contrast, 5 mm thick sections acquired from the lung apices to the symphysis. 2.5 mm thick coronal and sagittal reformats were acquired. Additional 7 mm thick coronal maximum intensity projection (MIP) reformats acquired through the lungs. Optional 10-minute delayed imaging may be performed from the kidneys to the bladder. For radiation dose reduction, the following was used: automated exposure control, adjustment of mA and/or kV according to patient size. COMPARISON: , CT, CHEST/ABD/PEL WITH CONTRAST, 06/12/2012, 8:14. FINDINGS: Image quality: Excellent. CHEST: Lungs: No pulmonary contusions or lacerations. 3 mm nodule, right lower lobe, image 264/3. This is unchanged allowing for differences in technique. 5 mm pulmonary nodule, periphery of lingula, image 233/3. This is also unchanged allowing for differences in technique. These are both benign lesions. No acute airspace opacities. No pneumothorax or hemothorax. Central and peripheral airways appear patent and normal in caliber. Mediastinum: No mediastinal hematomas. Heart size is normal. Severe coronary artery calcifications. No pericardial effusion. Thoracic aorta and pulmonary arteries demonstrate normal size and enhancement. No mediastinal or hilar adenopathy. Esophagus is normal in caliber. No hiatal hernia. Chest wall: Old healed left rib fractures. No acute displaced rib fractures identified.. No subcutaneous emphysema. No axillary or supraclavicular adenopathy. Thyroid gland is unremarkable as visualized. ABDOMEN: Solid organs: Liver is normal in size and enhancement, without lacerations. Moderate diffuse hepatic steatosis. Gallbladder is unremarkable without calcified gallstones. Biliary system is non-dilated. Pancreas enhances normally, without transection. Spleen is normal in size and enhancement, without lacerations. No adrenal hematomas. Both kidneys enhance normally, without hydronephrosis or lacerations. Peritoneum and bowel: No free fluid or air. Unenhanced bowel loops demonstrate normal wall thickness and caliber. Nodes and vessels: No retroperitoneal or mesenteric adenopathy. Aorta and inferior vena cava are normal in size and enhancement. Miscellaneous: No ventral hernias. PELVIS: Genitourinary: Diffuse bladder wall thickening. Prostate is enlarged. Miscellaneous: No inguinal hernias or adenopathy. Bones: Pelvic ring and hip joints appear intact. No acute compression fractures. Chronic compressions of T12 and L1. IMPRESSION: 1. No evidence of significant sequelae of acute trauma in the chest, abdomen, and pelvis. 2. Severe coronary artery calcifications. 3. Moderate hepatic steatosis. 4. Prostate enlargement with diffuse bladder wall thickening. 5. Old compression fractures and old left rib fractures. Dictated by: Diego Ring M.D. on 01/07/2022 at 11:49 Approved by: Diego Ring M.D. on 01/07/2022 at 11:56
[2022-01-07 11:17] LABS: Add Manual Diff / Slide Review NO; Basophils Absolute Auto 0 /uL (0-100); Basophils Percent Auto 0.4 % (0-2); Eosinophils Absolute Auto 100 /uL (0-450); Eosinophils Percent Auto 1.2 % (2-4); Hematocrit 37.6 % (41-53); Hemoglobin 13.1 g/dL (13.5-17.5); Lymphocytes Absolute Auto 1500 /uL (1100-4500); Lymphocytes Percent Auto 20.7 % (25-40); Mean Corpuscular HGB Conc 34.8 % (30-36); Mean Corpuscular Hemoglobin 34.5 PG (26-34); Mean Corpuscular Volume 99.1 fL (80-100); Monocytes Absolute Auto 1100 /uL (0-900); Monocytes Percent Auto 14.8 % (3-14); Neutrophils Absolute Auto 4700 /uL (1500-7000); Neutrophils Percent Auto 62.9 % (50-75); Platelet Count 107 X10^3/uL (150-400); Red Cell Distribution Width 12.8 % (11.6-14.8); White Blood Cell Count 7.5 X10^3/uL (4.5-11.0)
[2022-01-07 11:23] LABS: Prothrombin Time 11.2 SECONDS (10.1-12.7)
[2022-01-07 11:25] LABS: PTT Partial Thromboplastin Tim 26 SECONDS (26-36)
[2022-01-07 11:27] LABS: Alanine Aminotransferase 27 IU/L (<50); Albumin 3.7 g/dL (3.5-5.0); Alkaline Phosphatase 65 U/L (38-126); Aspartate Aminotransferase 40 IU/L (17-59); BUN Creatinine Ratio 10.2 (6-22); Bilirubin Total 0.6 mg/dL (0.2-1.3); Blood Urea Nitrogen 5 mg/dL (9-20); Calcium 8.5 mg/dL (8.4-10.2); Carbon Dioxide 23 mmol/L (22-32); Chloride 92 mmol/L (98-107); Creatine Kinase 50 U/L (55-170); Estimated Glomerular Filt Rate > 60 mL/min (>60); Ethanol (ETOH) 61 mg/dL; Globulin 3.6 g/dL (1.7-4.1); Glucose 102 mg/dL (80-110); HEMOLYSIS 22 (0-50); Lipase 31 U/L (23-300); Potassium 3.5 mmol/L (3.4-5.1); Sodium 126 mmol/L (137-145); Total Protein 7.3 g/dL (6.3-8.2)
[2022-01-07 11:28] LABS: Lactate (Lactic Acid) 1.7 mmol/L (0.7-2.1)
[2022-01-07 11:38] LABS: Troponin I < 0.012 ng/mL (0.01-0.034)
[2022-01-07 14:29] VITALS: BP 131/56; PULSE 104; RESP 20; O2SAT 97
[2022-01-07] MEDS: ACETAMINOPHEN 325 MG TABLET 975 MG PO (14:55)
--- NOTE | 2022-01-08 20:02 | ED.UPPEXIN ---
HPI - Extremity Injury (Upper) <Robby Nicole PA-C - Last Filed: 01/08/22 20:15> General Chief Complaint: Trauma Stated Complaint: tenisha galvez fell on sidewalk 01/02 Time Seen by Provider: 01/07/22 12:05 Source: patient Mode of arrival: Ambulatory History of Present Illness HPI narrative: 66-year-old male with past medical history seizures presents to the ED status post a fall sustained prior to arrival. Patient states that he was returning from the grocery store, when he fell and he believes he lost consciousness. Patient was unsure how long he had lost consciousness for, regained consciousness, was able to walk back home. Patient came home, called his friend who called EMS and patient presented to the ED. patient complains of right-sided shoulder pain. Patient endorses drinking some beer earlier today. Patient was unsure if he had a seizure that caused him to fall and injure himself. In the ED patient denies fever, chills, chest pain, shortness of breath, nausea, vomiting, abdominal pain, dysuria, lightheadedness, dizziness, tremors, anxiety, agitation. Patient denies numbness, tingling, weakness. Patient is able to move all extremities. Patient has good range of motion of the right arm, feels the most pain when flexing the right shoulder. Related Data Home Medications Medication Instructions Recorded Confirmed phenytoin sodium extended 100 mg 100 mg PO QID 09/19/17 05/21/20 capsule trazodone 50 mg tablet 25 mg PO HS PRN Sleep 09/19/17 05/21/20 Previous Rx's Medication Instructions Recorded hydrocodone 5 mg-acetaminophen 325 1 tab PO Q8H PRN pain #6 tabs 07/19/20 mg tablet Allergies Allergy/AdvReac Type Severity Reaction Status Date / Time meperidine [MEPERIDINE] AdvReac Unknown Vomiting Verified 07/19/20 10:27 Review of Systems <Robby Nicole PA-C - Last Filed: 01/08/22 20:15> Review of Systems ROS Unobtainable: All systems reviewed & are unremarkable except as noted in HPI and below Constitutional Constitutional: Denies chills, Denies fatigue, Denies fever(s), Denies frequent falls, Denies lethargy and Denies weakness Eyes Eyes: Denies change in vision, Denies eye discharge, Denies irritation and Denies loss of vision ENT Ears, Nose, Mouth, and Throat: Denies change in voice, Denies dizziness, Denies neck pain, Denies sore throat and Denies throat swelling Cardiovascular Cardiovascular: Denies chest pain, Denies irregular heart rhythm, Denies lightheadedness, Denies palpitations, Denies dyspnea, Denies dyspnea on exertion and Denies orthopnea Respiratory Respiratory: Denies cough, Denies dyspnea, Denies dyspnea on exertion and Denies wheezing Gastrointestinal Gastrointestinal: Denies abdominal pain, Denies change in bowel habits, Denies diarrhea, Denies nausea and Denies vomiting Genitourinary Genitourinary: Denies hematuria, Denies flank pain, Denies urinary incontinence and Denies urinary urgency Musculoskeletal Musculoskeletal: Denies back pain, Denies muscle weakness, Denies neck pain, Denies numbness and Denies tingling Comments: Right shoulder pain Integumentary/Breasts Skin/Breast: Denies pruritus, Denies erythema, Denies rash and Denies wounds Neurologic Neurologic: Denies behavioral changes, Denies confusion, Denies dizziness, Denies frequent falls, Denies loss of vision, Denies numbness, Denies tingling and Denies weakness Psychiatric Psychiatric: Denies anxiety, Denies behavioral changes, Denies confusion, Denies depression, Denies homicidal ideation and Denies suicidal ideation Endocrine Endocrine: Denies fatigue, Denies flushing and Denies palpitations Hematologic/Lymphatic Hematologic/Lymphatic: Denies easy bruising Allergic/Immunologic Allergic/Immunologic: Denies urticaria, Denies throat swelling and Denies wheezing Patient History <Robby Nicole PA-C - Last Filed: 01/08/22 20:15> Medical History Alcohol dependence, uncomplicated Broken neck Cervical spondylosis with myelopathy Chronic toe pain, left foot Deficiency of other vitamins Depression Diarrhea Epilepsy, unspecified, not intractable, without status epilepticus Essential hypertension, benign GERD with esophagitis Hallux rigidus Hearing loss Insomnia, unspecified Left elbow fracture Liver dysfunction Marijuana dependence Memory loss Multiple falls Osteoarthritis Osteoarthritis of hips, bilateral Osteoarthritis of knees, bilateral Osteoarthrosis Post-traumatic stress disorder, unspecified PTSD (post-traumatic stress disorder) Tinnitus Surgical History H/O foot surgery H/O thumb surgery History of colonoscopy History of esophagogastroduodenoscopy (EGD) Social History household members: none Smoking Status: Current every day smoker alcohol intake: current Smoking Status: Current every day smoker alcohol intake frequency: 3 or more drinks per day Substance Use Type: marijuana Exam <Robby Nicole PA-C - Last Filed: 01/08/22 20:15> Narrative Exam Narrative: Const General:?cooperative, healthy appearing and comfortable [facility] Head:?normal to inspection Ears:?hearing grossly normal bilaterally Nose:?external nose normal Face and sinus:?normal facial exam and sinuses nontender Mouth:?oral mucosae normal Throat:?posterior oropharynx normal Eyes General:?appearance normal, both eyes and all related structures Neck Neck:?normal visual inspection and no lymphadenopathy noted Resp Effort & Inspection:?normal respiratory effort Auscultation:?clear to auscultation bilaterally Cardio Rate:?regular rate Rhythm:?regular rhythm Musculoskeletal Distal clavicular area tender to palpation, swelling noted. No bruising noted on exam. There is good range of motion of the right shoulder, with pain with shoulder flexion. Strength and sensation intact. Patient is neurovascularly intact. Neuro General:?patient alert, patient awake and patient oriented x3 Initial Vital Signs Initial Vital Signs: Vital Signs Temperature 98.1 F 01/07/22 10:30 Pulse Rate 70 01/07/22 10:30 Respiratory Rate 18 01/07/22 10:30 Blood Pressure 124/88 01/07/22 10:30 Pulse Oximetry 99 01/07/22 10:30 Oxygen Delivery Method 01/07/22 10:30 <Vilma Santiago DO - Last Filed: 01/18/22 11:34> Initial Vital Signs Initial Vital Signs: Vital Signs Temperature 98.1 F 01/07/22 10:30 Pulse Rate 70 01/07/22 10:30 Respiratory Rate 18 01/07/22 10:30 Blood Pressure 124/88 01/07/22 10:30 Pulse Oximetry 99 01/07/22 10:30 Oxygen Delivery Method 01/07/22 10:30 Course <Robby Nicole PA-C - Last Filed: 01/08/22 20:15> Orders Ordered: Discontinued Medications Acetaminophen (Acetaminophen 325 Mg Tablet) 975 mg PO NOW ONE Stop: 01/07/22 14:42 Last Admin: 01/07/22 14:55 Dose: 975 mg Documented By: RB <Vilma Santiago DO - Last Filed: 01/18/22 11:34> Orders Ordered: Discontinued Medications Acetaminophen (Acetaminophen 325 Mg Tablet) 975 mg PO NOW ONE Stop: 01/07/22 14:42 Last Admin: 01/07/22 14:55 Dose: 975 mg Documented By: RB MDM - Extremity Injury (Upper) <Robby Nicole PA-C - Last Filed: 01/08/22 20:15> Lab Data Result diagrams: 01/07/22 10:50 01/07/22 10:50 Labs: Lab Results 01/07/22 01/07/22 01/07/22 Range/Units 10:50 10:50 10:50 WBC 7.5 (4.5-11.0) X10^3/uL RBC 3.80 L (4.5-5.9) X10^6/uL Hgb 13.1 L (13.5-17.5) g/dL Hct 37.6 L (41-53) % MCV 99.1 (80-100) fL MCH 34.5 H (26-34) PG MCHC 34.8 (30-36) % RDW 12.8 (11.6-14.8) % Plt Count 107 L (150-400) X10^3/uL Neut % (Auto) 62.9 (50-75) % Lymph % (Auto) 20.7 L (25-40) % Emanuel % (Auto) 14.8 H (3-14) % Eos % (Auto) 1.2 L (2-4) % Baso % (Auto) 0.4 (0-2) % Neut # (Auto) 4700 (7877-8349) /uL Lymph # (Auto) 1500 (6502-4718) /uL Emanuel # (Auto) 1100 H (0-900) /uL Eos # (Auto) 100 (0-450) /uL Baso # (Auto) 0 (0-100) /uL PT 11.2 (10.1-12.7) SECONDS INR 1.0 (0.9-1.3) APTT 26 (26-36) SECONDS Sodium 126 L (137-145) mmol/L Potassium 3.5 (3.4-5.1) mmol/L Chloride 92 L (98-107) mmol/L Carbon Dioxide 23 (22-32) mmol/L BUN 5 L (9-20) mg/dL Creatinine 0.49 L (0.66-1.25) mg/dL Estimated GFR > 60 (>60) mL/min BUN/Creatinine Ratio 10.2 (6-22) Glucose 102 (80-110) mg/dL Lactate (0.7-2.1) mmol/L Calcium 8.5 (8.4-10.2) mg/dL Total Bilirubin 0.6 (0.2-1.3) mg/dL AST 40 (17-59) IU/L ALT 27 (<50) IU/L Alkaline Phosphatase 65 (38-126) U/L Total Creatine Kinase 50 L (55-170) U/L CK-MB (CK-2) TNP CK-MB (CK-2) Rel Index TNP Troponin I < 0.012 (0.01-0.034) ng/mL Total Protein 7.3 (6.3-8.2) g/dL Albumin 3.7 (3.5-5.0) g/dL Globulin 3.6 (1.7-4.1) g/dL Albumin/Globulin Ratio 1.0 (1.0-2.8) Lipase 31 (23-300) U/L Ethyl Alcohol 61 H ( - 10) mg/dL Blood Type Antibody Screen 01/07/22 01/07/22 Range/Units 10:50 12:10 WBC (4.5-11.0) X10^3/uL RBC (4.5-5.9) X10^6/uL Hgb (13.5-17.5) g/dL Hct (41-53) % MCV (80-100) fL MCH (26-34) PG MCHC (30-36) % RDW (11.6-14.8) % Plt Count (150-400) X10^3/uL Neut % (Auto) (50-75) % Lymph % (Auto) (25-40) % Emanuel % (Auto) (3-14) % Eos % (Auto) (2-4) % Baso % (Auto) (0-2) % Neut # (Auto) (6626-7815) /uL Lymph # (Auto) (4697-2506) /uL Emanuel # (Auto) (0-900) /uL Eos # (Auto) (0-450) /uL Baso # (Auto) (0-100) /uL PT (10.1-12.7) SECONDS INR (0.9-1.3) APTT (26-36) SECONDS Sodium (137-145) mmol/L Potassium (3.4-5.1) mmol/L Chloride (98-107) mmol/L Carbon Dioxide (22-32) mmol/L BUN (9-20) mg/dL Creatinine (0.66-1.25) mg/dL Estimated GFR (>60) mL/min BUN/Creatinine Ratio (6-22) Glucose (80-110) mg/dL Lactate 1.7 (0.7-2.1) mmol/L Calcium (8.4-10.2) mg/dL Total Bilirubin (0.2-1.3) mg/dL AST (17-59) IU/L ALT (<50) IU/L Alkaline Phosphatase (38-126) U/L Total Creatine Kinase (55-170) U/L CK-MB (CK-2) CK-MB (CK-2) Rel Index Troponin I (0.01-0.034) ng/mL Total Protein (6.3-8.2) g/dL Albumin (3.5-5.0) g/dL Globulin (1.7-4.1) g/dL Albumin/Globulin Ratio (1.0-2.8) Lipase (23-300) U/L Ethyl Alcohol ( - 10) mg/dL Blood Type O Positive Antibody Screen Negative Imaging Data CT scan - head: Radiologist's Impression: PROCEDURE:? CT HEAD/BRAIN WO CON ? INDICATIONS:? Trauma ? TECHNIQUE:? Noncontrast 4.5 mm thick angled axial sections acquired from the foramen magnum to the vertex, with coronal and sagittal reformats.? For radiation dose reduction, the following was used:? automated exposure control, adjustment of mA and/or kV according to patient size.? ? COMPARISON:? [facility], CT, CT HEAD/BRAIN WO CON, 03/02/2018, 17:40. ? FINDINGS:? Image quality:? Excellent.? ? CSF spaces:? Basal cisterns are patent.? No extra-axial fluid collections.? The ventricles are symmetric in size and shape.? ? Brain:? No intracranial bleeds or masses.? There is cerebral volume loss for age, with resultant ventricular and sulcal prominence.? There are periventricular and deep white matter chronic small vessel ischemic changes.? There is intracranial internal carotid artery atherosclerosis.? ? Skull and face:? Calvarium and visualized facial bones appear intact, without suspicious lesions.? ? Sinuses:? Visualized sinuses and mastoids are clear.? ? IMPRESSION:? No evidence acute intracranial process. ? ? Dictated by: Diego Ring M.D. on 01/07/2022 at 11:28 ? ? Approved by: Diego Ring M.D. on 01/07/2022 at 11:28 ? CT - cervical spine: Radiologist's Impression: PROCEDURE:? CT CERVICAL SPINE WO CON ? INDICATIONS:? Trauma ? TECHNIQUE:? Noncontrast 3 mm thick sections acquired from the skull base to the T4 level.? Sagittal and coronal reformats were then constructed.? For radiation dose reduction, the following was used:? automated exposure control, adjustment of mA and/or kV according to patient size.? ? COMPARISON:? [facility], CT, CT CHEST ABD PEL W CON, 01/07/2022, 11:05. ? FINDINGS:? Image quality:? Excellent.? ? Bones:? No fractures or dislocations.? Visualized superior ribs are intact.? There has been previous ACDF at C5 through C7 with C6 corpectomy.? There is bone graft material which has an oblique configuration, coursing along the previous location of C6.? Some of the graft extends into the canal at its superior aspect.? It does not result in canal stenosis, as the canal measures at least 10 mm at its narrowest point.? There is separation of the anterior plate from C5, which is likely a chronic finding.? The C5 screws and C7 screws do not have loosening.? There is no hardware fracture noted.? Prominent facet arthropathy at C3-C4 bilaterally. ? Soft tissues:? Prevertebral soft tissues are normal in thickness.? No paravertebral hematomas.? No apical pneumothoraces.? ? ? IMPRESSION:? ? 1. No evidence of acute cervical fracture or dislocation. ? 2. Remote ACDF at C5 through C7 with C6 corpectomy.? As described, there is a bone graft which has an oblique configuration, with its superior aspect extending slightly into the canal, without canal stenosis.? There is also separation between the anterior plate and C5 vertebral body.? Although, there is no evidence of hardware loosening. ? Comment:? The findings at C5 through C7 are most likely chronic findings.? However, recommend careful correlation for presence or absence of new symptomatology, and comparison to prior studies from other institutions which would determine the chronicity or acuity of the findings at these levels. ? Dictated by: Diego Ring M.D. on 01/07/2022 at 11:56 ? ? Approved by: Diego Ring M.D. on 01/07/2022 at 12:1 CT chest abdomen pelvis: Radiologist's Impression: PROCEDURE:? CT CHEST ABD PEL W CON ? INDICATIONS:? Trauma ? TECHNIQUE:? After the administration of intravenous contrast, 5 mm thick sections acquired from the lung apices to the symphysis.? 2.5 mm thick coronal and sagittal reformats were acquired. ?Additional 7 mm thick coronal maximum intensity projection (MIP) reformats acquired through the lungs.? Optional 10-minute delayed imaging may be performed from the kidneys to the bladder.? For radiation dose reduction, the following was used:? automated exposure control, adjustment of mA and/or kV according to patient size.? ? COMPARISON:? [facility], CT, CHEST/ABD/PEL WITH CONTRAST, 06/12/2012, 8:14. ? FINDINGS:? Image quality:? Excellent.? ? CHEST:? Lungs:? No pulmonary contusions or lacerations.? 3 mm nodule, right lower lobe, image 264/3.? This is unchanged allowing for differences in technique.? 5 mm pulmonary nodule, periphery of lingula, image 233/3.? This is also unchanged allowing for differences in technique.? These are both benign lesions.? No acute airspace opacities.? No pneumothorax or hemothorax.? Central and peripheral airways appear patent and normal in caliber.? ? Mediastinum:? No mediastinal hematomas.? Heart size is normal.? Severe coronary artery calcifications.? No pericardial effusion.? Thoracic aorta and pulmonary arteries demonstrate normal size and enhancement.? No mediastinal or hilar adenopathy.? Esophagus is normal in caliber.? No hiatal hernia.? ? Chest wall:? Old healed left rib fractures.? No acute displaced rib fractures identified..? No subcutaneous emphysema.? No axillary or supraclavicular adenopathy.? Thyroid gland is unremarkable as visualized.? ? ? ABDOMEN:? Solid organs:? Liver is normal in size and enhancement, without lacerations.? Moderate diffuse hepatic steatosis.? Gallbladder is unremarkable without calcified gallstones.? Biliary system is non-dilated.? Pancreas enhances normally, without transection.? Spleen is normal in size and enhancement, without lacerations.? No adrenal hematomas.? Both kidneys enhance normally, without hydronephrosis or lacerations.? ? Peritoneum and bowel:? No free fluid or air.? Unenhanced bowel loops demonstrate normal wall thickness and caliber.? ? Nodes and vessels:? No retroperitoneal or mesenteric adenopathy.? Aorta and inferior vena cava are normal in size and enhancement.? ? Miscellaneous:? No ventral hernias.? ? ? PELVIS:? Genitourinary:? Diffuse bladder wall thickening.? Prostate is enlarged. ? Miscellaneous:? No inguinal hernias or adenopathy.? ? Bones:? Pelvic ring and hip joints appear intact.? No acute compression fractures.? Chronic compressions of T12 and L1. ? ? IMPRESSION:? ? 1. No evidence of significant sequelae of acute trauma in the chest, abdomen, and pelvis. ? 2. Severe coronary artery calcifications.? ? 3. Moderate hepatic steatosis. ? 4. Prostate enlargement with diffuse bladder wall thickening. ? 5. Old compression fractures and old left rib fractures.? Dictated by: Diego Ring M.D. on 01/07/2022 at 11:49 ? ? Approved by: Diego Ring M.D. on 01/07/2022 at 11:56 ? Shoulder x-ray: Radiologist's Impression: PROCEDURE:? XR SHOULDER RT MIN 2V ? INDICATIONS:? fall, right shoulder pain, right lat neck pain, ecchymosis ? TECHNIQUE:? 3 views of the shoulder were acquired.? ? COMPARISON:? None. ? FINDINGS:? ? Bones:? Comminuted, displaced distal clavicular fracture.? No other fractures or dislocations.? No suspicious bony lesions.? Visualized ribs appear intact.? ? Soft tissues:? No suspicious soft tissue calcifications.? ? IMPRESSION:? Comminuted, displaced distal clavicular fracture. ? ? Dictated by: Diego Ring M.D. on 01/07/2022 at 11:19 ? ? [facility] Narrative Medical decision making narrative: 66-year-old male with past medical history seizures presents to the ED status post a fall sustained prior to arrival. Concern for fracture/dislocation versus intra cranial bleed versus intra-abdominal bleed versus other. Obtained CT chest abdomen pelvis, shoulder x-ray, CT head, CT C-spine. Shoulder x-ray shows a comminuted, displaced distal clavicular fracture. Patient was placed in a sling. Recommend pain management with Tylenol, ibuprofen. Recommend follow-up with ortho. ED return precautions were discussed with patient. Patient verbalized understanding. <Vilma Santiago, DO - Last Filed: 01/18/22 11:34> Lab Data Labs: Lab Results 01/07/22 01/07/22 01/07/22 Range/Units 10:50 10:50 10:50 WBC 7.5 (4.5-11.0) X10^3/uL RBC 3.80 L (4.5-5.9) X10^6/uL Hgb 13.1 L (13.5-17.5) g/dL Hct 37.6 L (41-53) % MCV 99.1 (80-100) fL MCH 34.5 H (26-34) PG MCHC 34.8 (30-36) % RDW 12.8 (11.6-14.8) % Plt Count 107 L (150-400) X10^3/uL Neut % (Auto) 62.9 (50-75) % Lymph % (Auto) 20.7 L (25-40) % Emanuel % (Auto) 14.8 H (3-14) % Eos % (Auto) 1.2 L (2-4) % Baso % (Auto) 0.4 (0-2) % Neut # (Auto) 4700 (8928-6964) /uL Lymph # (Auto) 1500 (2114-2380) /uL Emanuel # (Auto) 1100 H (0-900) /uL Eos # (Auto) 100 (0-450) /uL Baso # (Auto) 0 (0-100) /uL PT 11.2 (10.1-12.7) SECONDS INR 1.0 (0.9-1.3) APTT 26 (26-36) SECONDS Sodium 126 L (137-145) mmol/L Potassium 3.5 (3.4-5.1) mmol/L Chloride 92 L (98-107) mmol/L Carbon Dioxide 23 (22-32) mmol/L BUN 5 L (9-20) mg/dL Creatinine 0.49 L (0.66-1.25) mg/dL Estimated GFR > 60 (>60) mL/min BUN/Creatinine Ratio 10.2 (6-22) Glucose 102 (80-110) mg/dL Lactate (0.7-2.1) mmol/L Calcium 8.5 (8.4-10.2) mg/dL Total Bilirubin 0.6 (0.2-1.3) mg/dL AST 40 (17-59) IU/L ALT 27 (<50) IU/L Alkaline Phosphatase 65 (38-126) U/L Total Creatine Kinase 50 L (55-170) U/L CK-MB (CK-2) TNP CK-MB (CK-2) Rel Index TNP Troponin I < 0.012 (0.01-0.034) ng/mL Total Protein 7.3 (6.3-8.2) g/dL Albumin 3.7 (3.5-5.0) g/dL Globulin 3.6 (1.7-4.1) g/dL Albumin/Globulin Ratio 1.0 (1.0-2.8) Lipase 31 (23-300) U/L Ethyl Alcohol 61 H ( - 10) mg/dL Blood Type Antibody Screen 01/07/22 01/07/22 Range/Units 10:50 12:10 WBC (4.5-11.0) X10^3/uL RBC (4.5-5.9) X10^6/uL Hgb (13.5-17.5) g/dL Hct (41-53) % MCV (80-100) fL MCH (26-34) PG MCHC (30-36) % RDW (11.6-14.8) % Plt Count (150-400) X10^3/uL Neut % (Auto) (50-75) % Lymph % (Auto) (25-40) % Emanuel % (Auto) (3-14) % Eos % (Auto) (2-4) % Baso % (Auto) (0-2) % Neut # (Auto) (2338-0066) /uL Lymph # (Auto) (1158-4044) /uL Emanuel # (Auto) (0-900) /uL Eos # (Auto) (0-450) /uL Baso # (Auto) (0-100) /uL PT (10.1-12.7) SECONDS INR (0.9-1.3) APTT (26-36) SECONDS Sodium (137-145) mmol/L Potassium (3.4-5.1) mmol/L Chloride (98-107) mmol/L Carbon Dioxide (22-32) mmol/L BUN (9-20) mg/dL Creatinine (0.66-1.25) mg/dL Estimated GFR (>60) mL/min BUN/Creatinine Ratio (6-22) Glucose (80-110) mg/dL Lactate 1.7 (0.7-2.1) mmol/L Calcium (8.4-10.2) mg/dL Total Bilirubin (0.2-1.3) mg/dL AST (17-59) IU/L ALT (<50) IU/L Alkaline Phosphatase (38-126) U/L Total Creatine Kinase (55-170) U/L CK-MB (CK-2) CK-MB (CK-2) Rel Index Troponin I (0.01-0.034) ng/mL Total Protein (6.3-8.2) g/dL Albumin (3.5-5.0) g/dL Globulin (1.7-4.1) g/dL Albumin/Globulin Ratio (1.0-2.8) Lipase (23-300) U/L Ethyl Alcohol ( - 10) mg/dL Blood Type O Positive Antibody Screen Negative ECG Data Attestation: I personally reviewed and interpreted this ECG as follows: Interpretation: Sinus rhythm, rate 88, KS 176, QRS 86, QTc 462. No acute ST changes. Discharge Plan Departure Patient Disposition: Home Clinical Impression: Clavicle fracture Instructions: DI for Trauma, How to Prevent Falls Activity Restrictions/Additional Instructions: You were evaluated in the ED today for a fall. Your x-ray shows a right-sided collarbone fracture. You are being fitted in a sling. Please follow-up with an ortho specialist as soon as possible. You may call [facility] at [phone]. You may take Tylenol for your symptoms. Please return to the ED if you note any numbness, tingling, weakness. Prescriptions: No Action phenytoin sodium extended 100 mg Capsule 100 mg PO QID Rx Instructions: 1-3x/day trazodone 50 MG tablet 25 mg PO HS PRN (Reason: Sleep) hydrocodone-acetaminophen 5-325 mg tablet 1 tab PO Q8H PRN (Reason: pain) Qty: 6 0RF Referrals: Julee Bledsoe MD [Primary Care Provider] - Visit Report Forms: Patient Portal/API
== END 2022-01-07 15:02 | disposition home or self-care (01) ==
PROVIDERS: Emergency Medicine; Emergency Provider Student in an Organized Health Care Education/Training Program; PCP Internal Medicine
DX: S42.031A Displaced fracture of lateral end of right clavicle, initial encounter for closed fracture (principal); R55 Syncope and collapse; S09.90XA Unspecified injury of head, initial encounter; W18.30XA Fall on same level, unspecified, initial encounter
CPT/HCPCS: 36415; 70450; 71260; 72125; 73030; 74177; 80053; 80320; 82550; 83605; 83690; 84484; 85025; 85610; 85730; 86850; 86900; 86901; 93005; 99284; Q9967

== ENCOUNTER 2023-02-12 13:01 | Emergency (ER) | payer MEDICARE, MEDICAID, SELFPAY ==
[2023-02-12] VITALS (34 sets, daily range): BP systolic 117–209; BP diastolic 84–117; PULSE 59–138; RESP 15–47; TEMP 36.6; O2SAT 95–100
--- NOTE | 2023-02-12 13:03 | DI.CT.S_ITS ---
PROCEDURE: CT ANGIO HEAD AND NECK INDICATIONS: unresponsive TECHNIQUE: After the administration of intravenous contrast, 1 mm thick sections acquired from the aortic arch through the [place]. 3-dimensional wmcejkv-ylbjtflna-rgsppiqryz (MIP) and/or volume rendering reformats were acquired of the central intracranial vasculature and neck separately. For radiation dose reduction, the following was used: automated exposure control, adjustment of mA and/or kV according to patient size. COMPARISON: None. FINDINGS: Image quality: Diagnostic. BRAIN: CSF spaces: Ventricles are normal in size and shape. Basal cisterns are patent. No extra-axial fluid collections. Brain: No significant abnormality of the brain can be seen. Subcortical and periventricular white matter hypodensities are consistent with small vessel ischemic disease. Skull and face: Calvarium and facial bones appear intact, without suspicious lesions. ACDF of C5, C6, and C7 there has been corpectomy of C6. Orbits appear normal. Sinuses: The sphenoid sinus is opacified. HEAD CT ANGIOGRAPHY: Anterior circulation: Intracranial internal carotid arteries are normal in size and flow. The flow within the paired anterior cerebral arteries is normal and symmetric. The flow within the middle cerebral arteries is normal and symmetric. The anterior communicating artery is seen. No aneurysms are seen. Posterior circulation: Visualized portions of the vertebral arteries demonstrate normal caliber, and join to form a normal appearing basilar artery. Flow within the posterior cerebral arteries is normal and symmetric. No aneurysms are seen. NECK CT ANGIOGRAPHY: Carotid system: The great vessels demonstrate a conventional anatomy as they arise from the aortic arch. The origins of the common carotid arteries appear patent. The common carotid arteries demonstrate normal caliber and courses. The bifurcation regions demonstrate atherosclerotic calcifications bilaterally with no significant stenosis by NASCET criteria. The internal carotid arteries demonstrate normal calibers and courses. Posterior circulation: The origin of the left vertebral artery has an atherosclerotic calcification with resulting moderate stenosis. The origin of the right vertebral artery is patent. The more superior extracranial portions of both vertebral arteries also demonstrate normal courses and calibers. They join to form a normal appearing basilar artery. Soft tissues: Visualized neck soft tissues demonstrate no suspicious abnormalities. Bones: No suspicious bony lesions. Visualized cervical spine appears normally aligned. IMPRESSION: 1. Atherosclerotic calcifications of the carotid bulbs with no significant stenosis. 2. Atherosclerotic calcification at the origin of the left vertebral artery resulting in moderate stenosis. 3. Normal CTA head. No large vessel occlusion. Any quantitative measurements of stenosis were performed using NASCET criteria. Dictated by: Rhys Moctezuma M.D. on 02/12/2023 at 13:21 Approved by: Rhys Moctezuma M.D. on 02/12/2023 at 13:31
--- NOTE | 2023-02-12 13:03 | DI.CT.S_ITS ---
PROCEDURE: CT STROKE INDICATIONS: unresponsive TECHNIQUE: Noncontrast 4.5 mm thick angled axial sections acquired from the foramen magnum to the vertex, with coronal reformats. For radiation dose reduction, the following was used: automated exposure control, adjustment of mA and/or kV according to patient size. COMPARISON: [facility], CT, CT ANGIO HEAD AND NECK, 02/12/2023, 13:09. FINDINGS: Image quality: Diagnostic. CSF spaces: Basal cisterns are patent. No extra-axial fluid collections. The ventricles are symmetric in size and shape. Brain: No intracranial bleeds or masses. There is cerebral volume loss for age, with resultant ventricular and sulcal prominence. There are periventricular and deep white matter chronic small vessel ischemic changes. There is intracranial internal carotid artery atherosclerosis. Skull and face: Calvarium and visualized facial bones appear intact, without suspicious lesions. Sinuses: There is opacification of the sphenoid sinus. IMPRESSION: 1. No acute intracranial abnormality. 2. Cerebral volume loss and small vessel ischemic changes. These findings were discussed with Dr. Sanderson at 13:20 on 02/12/2023. This study fulfills neurological imaging criteria for inclusion or exclusion of acute stroke therapies based on available published neurological guidelines. Dictated by: Rhys Moctezuma M.D. on 02/12/2023 at 13:16 Approved by: Rhys Moctezuma M.D. on 02/12/2023 at 13:21
--- NOTE | 2023-02-12 13:10 | ED_ITS ---
HPI - Altered Mental Status General Chief Complaint: Unresponsive Time Seen by Provider: 02/12/23 13:03 History of Present Illness HPI narrative: Patient is a 67-year-old male with past medical history seizure disorder, alcohol use disorder, hyperlipidemia presents today with altered mental status and found down. Apparently in his apartment complex he was found have in his apartment and half in the hallway. Neighbor called EMS. EMS is similar with patient they report that he had tonic-clonic seizure in route last time. He was unresponsive and very diaphoretic upon arrival. They thought he started to regain some consciousness and sauce shaking or fluttering in his eyes and he was given Versed 5 mg. Upon arrival here he unresponsive is starting to move a little and maintaining his Records have been reviewed he was hospitalized at [facility] January 06 Related Data Home Medications Medication Instructions Recorded Confirmed phenytoin sodium extended 100 mg 100 mg PO QID 09/19/17 01/22/23 capsule trazodone 50 mg tablet 25 mg PO HS PRN Sleep 09/19/17 01/22/23 Allergies Allergy/AdvReac Type Severity Reaction Status Date / Time meperidine [MEPERIDINE] AdvReac Unknown Vomiting Verified 01/29/23 12:42 Patient History Medical History (Updated 02/12/23 @ 20:30 by Joycelyn Sanderson DO) Left elbow fracture Broken neck Multiple falls Cervical spondylosis with myelopathy Marijuana dependence Osteoarthritis Memory loss Osteoarthrosis Epilepsy, unspecified, not intractable, without status epilepticus Alcohol dependence, uncomplicated Surgical History (System 01/29/23 @ 12:42 by Mohsen Miranda) History of neck surgery History of back surgery H/O foot surgery H/O thumb surgery History of esophagogastroduodenoscopy (EGD) History of colonoscopy Social History (System 01/29/23 @ 12:42 by Mohsen Miranda) marital status: unknown household members: none lives independently: Yes housing: other ([facility]) Smoking Status: Current every day smoker alcohol intake: current Smoking Status: Current every day smoker alcohol intake frequency: 3 or more drinks per day Substance Use Type: marijuana Exam Initial Vital Signs Initial Vital Signs: Vital Signs Temperature 97.9 F 02/12/23 13:01 Pulse Rate 116 H 02/12/23 13:01 Respiratory Rate 18 02/12/23 13:01 Blood Pressure 167/100 H 02/12/23 13:01 Pulse Oximetry 97 02/12/23 13:01 Oxygen Delivery Method Room Air 02/12/23 13:01 Course Orders Ordered: ED Orders 02/12/23 13:[address] angio head and neck Stat 02/12/23 13:04 EKG-12 Lead Stat 02/12/23 13:24 COVID19 -Nasal RAPID Stat 02/12/23 13:33 Complete Blood Count AUTO DIFF Stat PTT Partial Thromboplastin Eduar Stat Prolactin Stat Prothrombin Time INR Stat 02/12/23 13:58 XR shoulder LT min 2V Stat 02/12/23 14:20 Comprehensive Metabolic Panel Stat Ethanol (ETOH) Stat Phenytoin / Dilantin Stat Troponin & CK Cardiac Panel Stat 02/12/23 15:24 Urinalysis and Microscopic Stat Urine Drug Screen, Rapid Stat 02/12/23 16:13 Chest [XR chest 1V] Stat 02/12/23 16:34 Consult to [facility] [place] [facility] Stat Discontinued Medications Sodium Chloride (Normal Saline 0.9%) 1,000 mls @ 1,000 mls/hr IV BOLUS ONE Stop: 02/12/23 14:03 Last Infusion: 02/12/23 14:32 Dose: Infused Documented By: Admin: 02/12/23 13:29 Dose: 1,000 mls/hr Documented By: CTS Levetiracetam 1,000 mg/ Sodium (Chloride) 110 mls @ 440 mls/hr IV NOW ONE Stop: 02/12/23 13:17 Last Infusion: 02/12/23 13:59 Dose: Infused Documented By: Admin: 02/12/23 13:29 Dose: 440 mls/hr Documented By: CTS Lorazepam (Lorazepam 2 Mg/Ml Inj) 1 mg IV NOW ONE Stop: 02/12/23 14:15 Last Admin: 02/12/23 14:28 Dose: 1 mg Documented By: CTS Ondansetron HCl (Ondansetron 4 Mg/2 Ml Inj) 4 mg IV NOW ONE Stop: 02/12/23 16:31 Last Admin: 02/12/23 16:34 Dose: 4 mg Documented By: CTS Phenobarbital (Phenobarbital 65 Mg/Ml Vial) 130 mg IV NOW ONE Stop: 02/12/23 16:31 Last Admin: 02/12/23 16:34 Dose: 130 mg Documented By: CTS Vital Signs Vital signs: Vital Signs - 8 hr 02/12/23 13:01 02/12/23 13:12 02/12/23 13:20 Temperature 97.9 F Pulse Rate 116 H 118 H 116 H Respiratory Rate 18 30 H Blood Pressure 167/100 H Pulse Oximetry 97 98 98 Oxygen Delivery Method Room Air 02/12/23 13:21 02/12/23 13:21 02/12/23 13:30 Temperature Pulse Rate 115 H Respiratory Rate 27 H Blood Pressure 179/115 H 152/99 H Pulse Oximetry 99 Oxygen Delivery Method 02/12/23 13:30 02/12/23 13:45 02/12/23 13:45 Temperature Pulse Rate 120 H 114 H Respiratory Rate 23 21 Blood Pressure 161/103 H Pulse Oximetry 99 99 Oxygen Delivery Method 02/12/23 14:00 02/12/23 14:09 02/12/23 14:09 Temperature Pulse Rate 111 H 110 H Respiratory Rate 27 H 28 H Blood Pressure 179/102 H Pulse Oximetry 100 100 Oxygen Delivery Method 02/12/23 14:15 02/12/23 14:15 02/12/23 14:29 Temperature Pulse Rate 109 H 107 H Respiratory Rate 29 H 32 H Blood Pressure 175/109 H Pulse Oximetry 100 100 Oxygen Delivery Method 02/12/23 14:30 02/12/23 14:30 02/12/23 14:46 Temperature Pulse Rate 130 H Respiratory Rate 28 H Blood Pressure 160/100 H 209/95 H Pulse Oximetry 100 Oxygen Delivery Method 02/12/23 14:46 02/12/23 15:00 02/12/23 15:03 Temperature Pulse Rate 104 H 100 H Respiratory Rate 24 Blood Pressure 168/98 H Pulse Oximetry 100 99 Oxygen Delivery Method 02/12/23 15:03 02/12/23 15:15 02/12/23 15:15 Temperature Pulse Rate 99 H 98 H Respiratory Rate 18 16 Blood Pressure 174/111 H Pulse Oximetry 99 99 Oxygen Delivery Method 02/12/23 15:30 02/12/23 15:30 02/12/23 15:45 Temperature Pulse Rate 106 H Respiratory Rate 21 Blood Pressure 172/114 H 172/117 H Pulse Oximetry 99 Oxygen Delivery Method 02/12/23 15:45 02/12/23 16:00 02/12/23 16:01 Temperature Pulse Rate 113 H 138 H 117 H Respiratory Rate 35 H 26 H 47 H Blood Pressure Pulse Oximetry 99 98 98 Oxygen Delivery Method 02/12/23 16:01 02/12/23 16:38 02/12/23 16:41 Temperature Pulse Rate 114 H Respiratory Rate Blood Pressure 198/98 H 205/109 H Pulse Oximetry 95 Oxygen Delivery Method 02/12/23 16:41 02/12/23 16:46 02/12/23 16:46 Temperature Pulse Rate 108 H 103 H Respiratory Rate 19 20 Blood Pressure 170/104 H Pulse Oximetry 97 98 Oxygen Delivery Method 02/12/23 17:00 02/12/23 17:00 02/12/23 17:15 Temperature Pulse Rate 107 H Respiratory Rate 23 Blood Pressure 167/106 H 162/102 H Pulse Oximetry 99 Oxygen Delivery Method 02/12/23 17:15 02/12/23 17:30 02/12/23 17:30 Temperature Pulse Rate 111 H 104 H Respiratory Rate 23 17 Blood Pressure 159/96 H Pulse Oximetry 99 99 Oxygen Delivery Method 02/12/23 17:46 02/12/23 17:46 02/12/23 18:00 Temperature Pulse Rate 123 H 124 H Respiratory Rate 26 H 26 H Blood Pressure 139/96 H Pulse Oximetry 99 97 Oxygen Delivery Method 02/12/23 18:02 02/12/23 18:02 02/12/23 18:15 Temperature Pulse Rate 115 H Respiratory Rate 18 Blood Pressure 167/92 H 167/95 H Pulse Oximetry 99 Oxygen Delivery Method 02/12/23 18:15 02/12/23 18:30 02/12/23 18:30 Temperature Pulse Rate 107 H 100 H Respiratory Rate 19 15 Blood Pressure 150/85 H Pulse Oximetry 99 99 Oxygen Delivery Method 02/12/23 18:45 02/12/23 18:45 02/12/23 19:00 Temperature Pulse Rate 101 H 128 H Respiratory Rate 15 23 Blood Pressure 136/84 Pulse Oximetry 99 95 Oxygen Delivery Method 02/12/23 19:15 02/12/23 19:15 02/12/23 19:31 Temperature Pulse Rate 120 H Respiratory Rate 22 Blood Pressure 117/91 H 132/84 Pulse Oximetry 96 Oxygen Delivery Method 02/12/23 19:31 Temperature Pulse Rate 59 L Respiratory Rate Blood Pressure Pulse Oximetry 96 Oxygen Delivery Method MDM - Altered Mental Status Lab Data 02/12/23 13:33 02/12/23 14:20 Labs: Lab Results 02/12/23 02/12/23 02/12/23 Range/Units 13:24 13:33 14:20 WBC 6.8 (4.5-11.0) X10^3/uL RBC 3.71 L (4.5-5.9) X10^6/uL Hgb 12.9 L (13.5-17.5) g/dL Hct 38.1 L (41-53) % MCV 102.6 H (80-100) fL MCH 34.7 H (26-34) PG MCHC 33.8 (30-36) % RDW 13.9 (11.6-14.8) % Plt Count 137 L (150-400) X10^3/uL Neut % (Auto) 85.3 H (50-75) % Lymph % (Auto) 8.9 L (25-40) % [place] % (Auto) 5.2 (3-14) % Eos % (Auto) 0.0 L (2-4) % Baso % (Auto) 0.6 (0-2) % Neut # (Auto) 5800 (1178-0323) /uL Lymph # (Auto) 600 L (1907-0998) /uL [place] # (Auto) 400 (0-900) /uL Eos # (Auto) 0 (0-450) /uL Baso # (Auto) 0 (0-100) /uL PT 11.3 (9.4-12.5) SECONDS INR 1.0 (0.9-1.3) APTT 24 L (25.1-36.5) SECONDS Sodium 131 L (137-145) mmol/L Potassium 3.9 (3.4-5.1) mmol/L Chloride 98 (98-107) mmol/L Carbon Dioxide 18 L (22-32) mmol/L BUN 7 L (9-20) mg/dL Creatinine 0.60 L (0.66-1.25) mg/dL Estimated GFR > 60 (>60) mL/min BUN/Creatinine Ratio 11.7 (6-22) Glucose 137 H (80-110) mg/dL Calcium 9.0 (8.4-10.2) mg/dL Total Bilirubin 1.0 (0.2-1.3) mg/dL AST 47 (17-59) IU/L ALT 32 (<50) IU/L Alkaline Phosphatase 89 (38-126) U/L Total Creatine Kinase 33 L (55-170) U/L Troponin I < 0.012 (0.01-0.034) ng/mL Total Protein 6.7 (6.3-8.2) g/dL Albumin 3.6 (3.5-5.0) g/dL Globulin 3.1 (1.7-4.1) g/dL Albumin/Globulin Ratio 1.2 (1.0-2.8) Prolactin 15.6 (3.7-17.9) ng/mL Urine Color Urine Appearance Urine pH (4.5-8.0) Ur Specific [place] (1.000-1.035) Urine Protein (Negative) Urine Glucose (UA) (Negative) g/dL Urine Ketones (NEGATIVE) Urine Occult Blood (Negative) Urine Nitrate (Negative) Urine Bilirubin (NEGATIVE) Urine Urobilinogen (0.2) E.U./dL Ur Leukocyte Esterase (NEGATIVE) Urine RBC (0-5/HPF) Urine WBC (0-5/HPF) Ur Squamous Epith Cells (0-5/HPF) Urine Bacteria (None) Ur Culture Indicated? U Opiates 300ng/mL cut (Negative) Ur Oxycodone Screen (Negative) Urine Methadone Screen (Negative) Ur Barbiturates Screen (Negative) Phenytoin 13.4 (10-20) ug/mL U Tricyclic Antidepress (Negative) Ur Phencyclidine Scrn (Negative) Ur Amphetamines Screen (Negative) U Methamphetamines Scrn (Negative) Ur MDMA Scrn (Ecstasy) (Negative) U Benzodiazepines Scrn (Negative) Urine Cocaine Screen (Negative) U Marijuana (THC) Screen (Negative) Urine Specific [place] (Normal) Ethyl Alcohol < 10 ( - 10) mg/dL Ur Creatinine (Normal) SARS-CoV-2 (PCR) Negative (Negative) 02/12/23 02/12/23 Range/Units 15:24 15:24 WBC (4.5-11.0) X10^3/uL RBC (4.5-5.9) X10^6/uL Hgb (13.5-17.5) g/dL Hct (41-53) % MCV (80-100) fL MCH (26-34) PG MCHC (30-36) % RDW (11.6-14.8) % Plt Count (150-400) X10^3/uL Neut % (Auto) (50-75) % Lymph % (Auto) (25-40) % [place] % (Auto) (3-14) % Eos % (Auto) (2-4) % Baso % (Auto) (0-2) % Neut # (Auto) (6514-4305) /uL Lymph # (Auto) (1446-1343) /uL [place] # (Auto) (0-900) /uL Eos # (Auto) (0-450) /uL Baso # (Auto) (0-100) /uL PT (9.4-12.5) SECONDS INR (0.9-1.3) APTT (25.1-36.5) SECONDS Sodium (137-145) mmol/L Potassium (3.4-5.1) mmol/L Chloride (98-107) mmol/L Carbon Dioxide (22-32) mmol/L BUN (9-20) mg/dL Creatinine (0.66-1.25) mg/dL Estimated GFR (>60) mL/min BUN/Creatinine Ratio (6-22) Glucose (80-110) mg/dL Calcium (8.4-10.2) mg/dL Total Bilirubin (0.2-1.3) mg/dL AST (17-59) IU/L ALT (<50) IU/L Alkaline Phosphatase (38-126) U/L Total Creatine Kinase (55-170) U/L Troponin I (0.01-0.034) ng/mL Total Protein (6.3-8.2) g/dL Albumin (3.5-5.0) g/dL Globulin (1.7-4.1) g/dL Albumin/Globulin Ratio (1.0-2.8) Prolactin (3.7-17.9) ng/mL Urine Color Yellow Urine Appearance Clear Urine pH 7.0 Normal (4.5-8.0) Ur Specific [place] 1.010 (1.000-1.035) Urine Protein Negative (Negative) Urine Glucose (UA) Negative (Negative) g/dL Urine Ketones 1+ H (NEGATIVE) Urine Occult Blood Negative (Negative) Urine Nitrate Negative (Negative) Urine Bilirubin Negative (NEGATIVE) Urine Urobilinogen 0.2 (0.2) E.U./dL Ur Leukocyte Esterase Negative (NEGATIVE) Urine RBC None seen (0-5/HPF) Urine WBC None seen (0-5/HPF) Ur Squamous Epith Cells None seen (0-5/HPF) Urine Bacteria None seen (None) Ur Culture Indicated? Cult not indicated U Opiates 300ng/mL cut Negative (Negative) Ur Oxycodone Screen Negative (Negative) Urine Methadone Screen Negative (Negative) Ur Barbiturates Screen Positive H (Negative) Phenytoin (10-20) ug/mL U Tricyclic Antidepress Negative (Negative) Ur Phencyclidine Scrn Negative (Negative) Ur Amphetamines Screen Negative (Negative) U Methamphetamines Scrn Negative (Negative) Ur MDMA Scrn (Ecstasy) Negative (Negative) U Benzodiazepines Scrn Negative (Negative) Urine Cocaine Screen Negative (Negative) U Marijuana (THC) Screen Positive H (Negative) Urine Specific [place] Normal (Normal) Ethyl Alcohol ( - 10) mg/dL Ur Creatinine Normal (Normal) SARS-CoV-2 (PCR) (Negative) Point of Care Testing Glucose POC [address] scan - head: Radiologist's Impression: PROCEDURE: CT STROKE INDICATIONS: unresponsive TECHNIQUE: Noncontrast 4.5 mm thick angled axial sections acquired from the foramen magnum to the vertex, with coronal reformats. For radiation dose reduction, the following was used: automated exposure control, adjustment of mA and/or kV according to patient size. COMPARISON: [facility], CT, CT ANGIO HEAD AND NECK, 02/12/2023, 13:09. FINDINGS: Image quality: Diagnostic. CSF spaces: Basal cisterns are patent. No extra-axial fluid collections. The ventricles are symmetric in size and shape. Brain: No intracranial bleeds or masses. There is cerebral volume loss for age, with resultant ventricular and sulcal prominence. There are periventricular and deep white matter chronic small vessel ischemic changes. There is intracranial internal carotid artery atherosclerosis. Skull and face: Calvarium and visualized facial bones appear intact, without suspicious lesions. Sinuses: There is opacification of the sphenoid sinus. IMPRESSION: 1. No acute intracranial abnormality. 2. Cerebral volume loss and small vessel ischemic changes. These findings were discussed with Dr. Sanderson at 13:20 on 02/12/2023. CTA - brain/neck: Radiologist's Impression: PROCEDURE: CT ANGIO HEAD AND NECK INDICATIONS: unresponsive TECHNIQUE: After the administration of intravenous contrast, 1 mm thick sections acquired from the aortic arch through the [place] Ira of [place]. 3-dimensional itltjvw-kjggysmds-jwnybnsorf (MIP) and/or volume rendering reformats were acquired of the central intracranial vasculature and neck separately. For radiation dose reduction, the following was used: automated exposure control, adjustment of mA and/or kV according to patient size. COMPARISON: None. FINDINGS: Image quality: Diagnostic. BRAIN: CSF spaces: Ventricles are normal in size and shape. Basal cisterns are patent. No extra-axial fluid collections. Brain: No significant abnormality of the brain can be seen. Subcortical and periventricular white matter hypodensities are consistent with small vessel ischemic disease. Skull and face: Calvarium and facial bones appear intact, without suspicious lesions. ACDF of C5, C6, and C7 there has been corpectomy of C6. Orbits appear normal. Sinuses: The sphenoid sinus is opacified. HEAD CT ANGIOGRAPHY: Anterior circulation: Intracranial internal carotid arteries are normal in size and flow. The flow within the paired anterior cerebral arteries is normal and symmetric. The flow within the middle cerebral arteries is normal and symmetric. The anterior communicating artery is seen. No aneurysms are seen. Posterior circulation: Visualized portions of the vertebral arteries demonstrate normal caliber, and join to form a normal appearing basilar artery. Flow within the posterior cerebral arteries is normal and symmetric. No aneurysms are seen. NECK CT ANGIOGRAPHY: Carotid system: The great vessels demonstrate a conventional anatomy as they arise from the aortic arch. The origins of the common carotid arteries appear patent. The common carotid arteries demonstrate normal caliber and courses. The bifurcation regions demonstrate atherosclerotic calcifications bilaterally with no significant stenosis by NASCET criteria. The internal carotid arteries demonstrate normal calibers and courses. Posterior circulation: The origin of the left vertebral artery has an atherosclerotic calcification with resulting moderate stenosis. The origin of the right vertebral artery is patent. The more superior extracranial portions of both vertebral arteries also demonstrate normal courses and calibers. They join to form a normal appearing basilar artery. Soft tissues: Visualized neck soft tissues demonstrate no suspicious abnormalities. Bones: No suspicious bony lesions. Visualized cervical spine appears normally aligned. IMPRESSION: 1. Atherosclerotic calcifications of the carotid bulbs with no significant stenosis. 2. Atherosclerotic calcification at the origin of the left vertebral artery resulting in moderate stenosis. 3. Normal CTA head. No large vessel occlusion. Any quantitative measurements of stenosis were performed using NASCET criteria. Dictated by: Rhys Moctezuma M.D. on 02/12/2023 at 13:21 Extremity x-ray #1: Radiologist's Impression: PROCEDURE: XR SHOULDER LT MIN 2V INDICATIONS: swollen, potential fall, arrived unresponsive TECHNIQUE: 2 views of the shoulder were acquired. COMPARISON: [facility], CR, XR SHOULDER RT MIN 2V, 01/07/2022, 10:41. FINDINGS: Bones: The left 5th and 6th ribs have mildly displaced fractures. The left proximal humerus has minimally displaced fracture of the lateral humeral head and the humeral neck. Postoperative changes in the middle humerus are seen. Soft tissues: No suspicious soft tissue calcifications. No pneumothorax IMPRESSION: 1. Mildly displaced fractures of the left 5th and 6th ribs. 2. Minimally displaced fracture of the left lateral humeral head and left humeral neck. Dictated by: Rhys Moctezuma M.D. on 02/12/2023 at 14:46 Approved by: Rhys Moctezuma M.D. on 02/12/2023 at 14:49 Chest x-ray: Radiologist's Impression: PROCEDURE: XR CHEST 1V INDICATIONS: rib fractures TECHNIQUE: One view of the chest was acquired. COMPARISON: [facility], CR, XR SHOULDER LT MIN 2V, 02/12/2023, 14:16. [facility], CR, XR CHEST 1V, 05/21/2020, 6:54. [facility], CR, XR CHEST 2V, 10/27/2018, 10:45. FINDINGS: Surgical changes and devices: ACDF. Lungs and pleura: Lungs are clear. No pleural effusions or pneumothorax. Mediastinum: Mediastinal contours appear normal. Heart size is normal. Bones and chest wall: Minimally displaced fractures of the left 5th and 6th ribs, not well evaluated. No suspicious bony lesions. Overlying soft tissues appear unremarkable. IMPRESSION: Minimally displaced fractures of the left 5th and 6th ribs are better evaluated on prior shoulder radiograph. No pneumothorax is seen. The lungs are clear. Dictated by: Gregory Wise M.D. on 02/12/2023 at 16:50 ECG Data Interpretation: Sinus tachycardia rate 119 ID interval [address] changes MDM Narrative Medical decision making narrative: Patient is a 67-year-old male history of alcohol abuse some cognitive decline and seizures. He presents today with decreased responsiveness concern for seizure he was found down. He did receive Versed with EMS. However he did start moving in CT. CT head did not show acute intracranial hemorrhage, CT angio no roselia, x-ray does show left humeral head fracture and rib fractures 5 and 6 was minimal displacement no pneumothorax Patient began becoming more awake and alert. I suspect that he did have some sort of seizure Blood work reviewed prolactin 15.6 which is in normal range, bicarb 18, sodium 131 glucose 137 no leukocytosis no anemia Patient definitely becoming more awake and alert. He is ambulatory with a steady gait. [address] records have been reviewed. He apparently left Against Medical Advice. There is questionable capacity during his ICU stay. He went on a hunger strike. On his last day evaluated by psychiatry who came to that he did have capacity. He has been doing well since discharge. He has neighbors who check on him he made it to PCP office. It does appear that APS involved. Dr. Rodriguez, neurology at [facility] updated patient's symptoms test results. He reports that at this time there is nothing further for them to do. He reports that patient is very noncompliant. He continues to drink alcohol. At this time no change in medication no need for transfer. Social work evaluation. Agrees that patient has some support. Patient is placed in a sling he has not really requiring much pain medication. Discharge Plan Departure Patient Disposition: Home Clinical Impression: Seizure, Fracture of head of humerus, Closed rib fracture Instructions: Seizure Disorder -- Adult, DI for Shoulder Fracture Activity Restrictions/Additional Instructions: *You have been diagnosed with seizure disorder *What to do: You must start taking your medications wear sling at all times for 4-6 weeks *Continue to take medications as directed Tylenol 650 mg every 4-6 hours if needed for [id number] pain *Follow up with your primary care provider in 2-3 days or call [phone] Need follow-up *Return to ER if you should have any new, worsening or concerning symptoms Prescriptions: No Action phenytoin sodium extended 100 mg Capsule 100 mg PO QID Rx Instructions: 1-3x/day trazodone 50 MG tablet 25 mg PO HS PRN (Reason: Sleep) Referrals: [facility] [Provider Group] Julee Bledsoe MD [Primary Care Provider] - Stand Alone Forms: Patient Portal/API, Naloxone Standing Order [facility]
[2023-02-12] MEDS: SODIUM CHLORIDE 0.9% 1,000 ML 1000 ML IV (13:29)
[2023-02-12] MEDS: levETIRAcetam 1,000 MG in SODIUM CHLORIDE 0.9% 100 ML 440 MG IV (13:29)
--- NOTE | 2023-02-12 13:39 | PC.NURSE ---
Pt was brought in by EMS. Per EMS, apartment neighbor called 911 after stepping out of his own apartment and seeing pt laying on the floor half out the door of his apartment. Per EMS pt may have had some seizure activity on scene. Loss of bladder. Pt was protecting his own airway and breathing spontaneously on scene however unresponsive to sternal rubbing. Large case of beer at scene and pt has h/o ETOH W/D Seizures that he has been hospitalized for in the past. 5mg IV Versed given to pt by EMS. B/L 18G AC IV access. On arrival to ED, on O2 via NC. Pt was exposed and covered with warm blankets, glucose 190's, breathing spontaneously, hypoactive gag reflex and possible R sided facial droop. Code stroke called on arrival to 1. Taken to and from CT without complication on cardiac monitoring. Labs and EKG obtained. On arrival back to room pt is more responsive. spontaneous eye open, localizing to pain, and answering yes and no questions. Reports pain when LUQ palpated. Skin tear to R elbow covered with gauze and coban. No other injuries or abnormalities noted. Keppra and NS infusing per MAR. Calm and cooperative.
[2023-02-12 13:47] LABS: COVID19 -Nasal RAPID Negative (Negative)
[2023-02-12 13:49] LABS: Add Manual Diff / Slide Review NO; Basophils Absolute Auto 0 /uL (0-100); Basophils Percent Auto 0.6 % (0-2); Eosinophils Absolute Auto 0 /uL (0-450); Hematocrit 38.1 % (41-53); Hemoglobin 12.9 g/dL (13.5-17.5); Lymphocytes Absolute Auto 600 /uL (1100-4500); Lymphocytes Percent Auto 8.9 % (25-40); Mean Corpuscular HGB Conc 33.8 % (30-36); Mean Corpuscular Hemoglobin 34.7 PG (26-34); Mean Corpuscular Volume 102.6 fL (80-100); Monocytes Absolute Auto 400 /uL (0-900); Monocytes Percent Auto 5.2 % (3-14); Neutrophils Absolute Auto 5800 /uL (1500-7000); Neutrophils Percent Auto 85.3 % (50-75); Platelet Count 137 X10^3/uL (150-400); Red Blood Cell Count 3.71 X10^6/uL (4.5-5.9); Red Cell Distribution Width 13.9 % (11.6-14.8); White Blood Cell Count 6.8 X10^3/uL (4.5-11.0)
[2023-02-12 13:58] LABS: Prothrombin Time 11.3 SECONDS (9.4-12.5)
--- NOTE | 2023-02-12 13:58 | DI.RAD.S_ITS ---
PROCEDURE: XR SHOULDER LT MIN 2V INDICATIONS: swollen, potential fall, arrived unresponsive TECHNIQUE: 2 views of the shoulder were acquired. COMPARISON: [facility], CR, XR SHOULDER RT MIN 2V, 01/07/2022, 10:41. FINDINGS: Bones: The left 5th and 6th ribs have mildly displaced fractures. The left proximal humerus has minimally displaced fracture of the lateral humeral head and the humeral neck. Postoperative changes in the middle humerus are seen. Soft tissues: No suspicious soft tissue calcifications. No pneumothorax IMPRESSION: 1. Mildly displaced fractures of the left 5th and 6th ribs. 2. Minimally displaced fracture of the left lateral humeral head and left humeral neck. Dictated by: Rhys Moctezuma M.D. on 02/12/2023 at 14:46 Approved by: Rhys Moctezuma M.D. on 02/12/2023 at 14:49
[2023-02-12 14:01] LABS: PTT Partial Thromboplastin Tim 24 SECONDS (25.1-36.5)
[2023-02-12 14:20] LABS: Prolactin 15.6 ng/mL (3.7-17.9)
[2023-02-12] MEDS: LORazepam 2 MG/ML INJ 1 MG IV (14:28)
[2023-02-12 14:38] LABS: Albumin 3.6 g/dL (3.5-5.0); Albumin Globulin Ratio 1.2 (1.0-2.8); Alkaline Phosphatase 89 U/L (38-126); Aspartate Aminotransferase 47 IU/L (17-59); BUN Creatinine Ratio 11.7 (6-22); Blood Urea Nitrogen 7 mg/dL (9-20); Carbon Dioxide 18 mmol/L (22-32); Chloride 98 mmol/L (98-107); Creatine Kinase 33 U/L (55-170); Estimated Glomerular Filt Rate > 60 mL/min (>60); Ethanol (ETOH) < 10 mg/dL; Globulin 3.1 g/dL (1.7-4.1); Glucose 137 mg/dL (80-110); HEMOLYSIS 16 (0-50); Potassium 3.9 mmol/L (3.4-5.1); Sodium 131 mmol/L (137-145); Total Protein 6.7 g/dL (6.3-8.2)
[2023-02-12 14:49] LABS: Troponin I < 0.012 ng/mL (0.01-0.034)
[2023-02-12 14:55] LABS: Alanine Aminotransferase 32 IU/L (<50)
[2023-02-12 15:34] LABS: Appearance Urine UA CLEAR; Bilirubin Urine UA NEGATIVE (NEGATIVE); Color Urine UA YELLOW; Glucose Urine UA NEGATIVE (Negative); Ketones Urine UA 1+ (NEGATIVE); Leukocyte Esterase Urine UA NEGATIVE (NEGATIVE); Nitrite Urine UA NEGATIVE (Negative); Occult Blood Urine UA NEGATIVE (Negative); Protein Urine UA NEGATIVE (Negative); Urobilinogen Urine UA 0.2 E.U./dL (0.2)
[2023-02-12 15:40] LABS: Ur Creatinine Normal (Normal); Ur Specific Gravity Normal (Normal); Urine pH Normal (Normal)
[2023-02-12 15:41] LABS: UR Morphine/Opiate cutoff 300 Negative (Negative); Urine Cocaine Negative (Negative); Urine Tetrahydrocannabinol Positive (Negative)
[2023-02-12 15:42] LABS: Urine Amphetamines Negative (Negative); Urine Barbiturates Positive (Negative); Urine Benzodiazepines Negative (Negative); Urine MDMA Negative (Negative); Urine Methadone Negative (Negative); Urine Methamphetamines Negative (Negative); Urine Oxycodone Negative (Negative); Urine Phencyclidine Negative (Negative); Urine Tricyclic Antidepressant Negative (Negative)
[2023-02-12 15:47] LABS: Bacteria Urine None Seen; Culture Indicated Urine Cult Not Indicated; RBC Urine None Seen (0-5/HPF); Squamous Epithelial Cell Urine None Seen (0-5/HPF); WBC Urine None Seen (0-5/HPF)
--- NOTE | 2023-02-12 16:13 | DI.RAD.S_ITS ---
PROCEDURE: XR CHEST 1V INDICATIONS: rib fractures TECHNIQUE: One view of the chest was acquired. COMPARISON: [facility], CR, XR SHOULDER LT MIN 2V, 02/12/2023, 14:16. [facility], CR, XR CHEST 1V, 05/21/2020, 6:54. [facility], CR, XR CHEST 2V, 10/27/2018, 10:45. FINDINGS: Surgical changes and devices: ACDF. Lungs and pleura: Lungs are clear. No pleural effusions or pneumothorax. Mediastinum: Mediastinal contours appear normal. Heart size is normal. Bones and chest wall: Minimally displaced fractures of the left 5th and 6th ribs, not well evaluated. No suspicious bony lesions. Overlying soft tissues appear unremarkable. IMPRESSION: Minimally displaced fractures of the left 5th and 6th ribs are better evaluated on prior shoulder radiograph. No pneumothorax is seen. The lungs are clear. Dictated by: Gregory Wise M.D. on 02/12/2023 at 16:50 Approved by: Gregory Wise M.D. on 02/12/2023 at 16:51
[2023-02-12] MEDS: ONDANSETRON 4 MG/2 ML INJ IV (16:34)
[2023-02-12] MEDS: PHENobarbital 65 MG/ML VIAL 130 MG IV (16:34)
--- NOTE | 2023-02-12 16:40 | P.CALLCOV_ITS ---
Call Coverage Note Note Narrative of Care Provided: 67 M with PMH of seizure disorder, EtOH, HLD who was recently discharged from neuro ICU at [facility] at the end of last month. Per that discharge summary patient was transferred from [facility] after intubation for status epilepticus. He was extubated, and it is difficult to tell if he had neurological monitoring afterwards. He was noted to have severe cognitive impairment requiring 24h supervision, and went on a hunger strike. He finally was deemed appropriate for AMA after psychiatry there deemed that he had capacity and after ethics involvement. In the setting of recurrent seizures based on presenting history, lack of neurology at [facility], and in this situation lack of available psychiatry (one provider available only M-Th in between appointments) and resources for this patient, I recommend transfer to higher level of care. Should patient stabilize from seizure perspective, and it is deemed he needs placement at that time, recommend initiation of social admission policy with case management.
--- NOTE | 2023-02-12 16:43 | PC.NURSE ---
attempted to get pt up OOB for ambulation trial. Pt able to get up OOB with 2 assist, amublated in ramirez with impaired gait. Assisted back to room. pt started vomiting about 250cc total. Asking to use the commode. No stool. MD made aware and given zofran and phenobarbital. Assisted back to bed. Attached to cardiac monitoring. Given water to drink. Call light in place.
[2023-02-12 17:59] LABS: Phenytoin / Dilantin 13.4 ug/mL (10-20)
--- NOTE | 2023-02-12 18:56 | CM.SWNOTE ---
ED LABORER CARPENTRY DOCK Note Patient is 67 y/o male who presents to ED via EMS after being found unresponsive at home. It is reported a neighbor called 911. LABORER CARPENTRY DOCK reviews collective medical, patient was at [facility] from 01/06/23-01/12/23 due to similar incident and patient was deemed safe and at capacity to d/c AMA after Psychiatry consult and ethics committee review. Patient's PCP is Julee Bledsoe, Per [facility], patient also has VA PCP Dr. Lucio, Patient has Medicaid, [facility] advantage listed, but patient may also have VA benefits that are not listed at this time. LABORER CARPENTRY DOCK reviews recent PCP visit with attending provider Dr. Shipley at [facility], it is reported that APS is currently involved with patient, looking into a caregiver and patient has life alert at home, patient denies further in home services. It is reported that patient's friends that are veterans drove patient to the appt. Patient has hx of Vascular Dementia, ETOH use, and Seizures. LABORER CARPENTRY DOCK calls [facility], it is reported that they received referral for patient at the end of December but were unable to start services with him. LABORER CARPENTRY DOCK calls [facility], it is reported that patient has the Medicare Savings program and has not yet applied for TELLO. LABORER CARPENTRY DOCK reviews EMR and patient's friends Layo (ph. # [phone]) and Mariano (Ph.# [phone]) are listed as friends and medical information can be released to them via signed BREANNA. LABORER CARPENTRY DOCK calls Layo and leaves . Layo calls back and reports that he talks with patient every day and states that patient can generally take care of himself, but patient is off for about a week after a seizure. Layo states that he can pick patient up upon medical clearance. LABORER CARPENTRY DOCK calls Mariano, Mariano states that patient has had recent seizures, patient lives alone in [place], it is reported that Mariano lives in [place] as well. Mariano states that he talks with patient once a day. Mariano states that patient has been able to take care of self since recent hospitalization. Mariano states that patient's neighbors check in on patient regularly. LABORER CARPENTRY DOCK calls [place] [facility] and it is reported that patient is a and [place] in [place], it was after hours and this LAB[employer]ER [employer]PENTRY DOCK was unable to reach a . ED provider calls neurologist at [facility] and it is reported that patient would not meet criteria for transfer. LABORER CARPENTRY DOCK enters room to meet with patient, patient presents as A/Ox3, patient states she manages ADLs independently at home and usually walks to get around. Patient states at neighbor named Whitley checks on him regularly at home. Patient endorses he can ambulate and meet his needs. LABORER CARPENTRY DOCK to review this to ED provider to determine disposition. Plan: ED provider likely to d/c patient upon medical clearance, Friend Layo can provide ride, patient to f/u with PCP and outpatient referrals. Patient to continue to receive support from [employer], APS to f/u with patient as well. Megan Schrader, SERVICES EXECUTIVE
== END 2023-02-12 19:56 | disposition home or self-care (01) ==
PROVIDERS: Emergency Provider Emergency Medicine; Family Provider Internal Medicine; PCP Internal Medicine
DX: G40.909 Epilepsy, unspecified, not intractable, without status epilepticus (principal); S42.302A Unspecified fracture of shaft of humerus, left arm, initial encounter for closed fracture; S22.42XA Multiple fractures of ribs, left side, initial encounter for closed fracture; R00.0 Tachycardia, unspecified; W19.XXXA Unspecified fall, initial encounter; Z20.822 Contact with and (suspected) exposure to COVID-19
CPT/HCPCS: 36415; 70450; 70496; 70498; 71045; 73030; 80053; 80185; 80305; 80320; 81001; 82550; 82962; 84146; 84484; 85025; 85610; 85730; 87635; 93005; 96365; 96375; 99285; C9803; J1953; J2060; J2405; J2560; Q9967

== ENCOUNTER 2023-03-05 13:10 | Emergency (ER) | payer MEDICARE, MEDICAID, SELFPAY ==
[2023-03-05 13:14] VITALS: BP 138/85; PULSE 88; RESP 18; TEMP 36.8; O2SAT 98; BMI 22.9
--- NOTE | 2023-03-05 13:46 | DI.RAD.S_ITS ---
PROCEDURE: XR RIBS LT MIN 3V W CXR1V INDICATIONS: hx rib fractures, extensive bruising over left chest TECHNIQUE: 2 views of the ribs were acquired, along with a single view chest. COMPARISON: [facility], CR, XR CHEST 1V, 02/12/2023, 16:10. [facility], CR, XR RIBS LT MIN 3V W CXR1V, 07/19/2020, 10:30. FINDINGS: Surgical changes and devices: None. Bones and chest wall: There are multiple old left rib fractures involving the 5th, 6th and 7th ribs. Suspect nondisplaced acute 8th rib fracture No definitive No suspicious bony lesions. Overlying soft tissues appear unremarkable. Note is made of left humeral head and neck fracture (see separate report). Lungs and pleura: No pleural effusions or pneumothorax. Lungs appear clear. Mediastinum: Mediastinal contours appear normal. Heart size is normal. IMPRESSION: 1. Multiple rib fractures are present. The 8th rib fracture is probably acute. Multiple old rib fractures are noted involving the 5th, 6th and 7th ribs. 2. Acute humeral head neck fracture superimposed on chronic/subacute fractures. Dictated by: Davi Silva M.D. on 03/05/2023 at 14:29 Approved by: Davi Silva M.D. on 03/05/2023 at 14:33
--- NOTE | 2023-03-05 13:46 | DI.US.S_ITS ---
PROCEDURE: US PERIPH VENOUS UP EXTREM LT INDICATIONS: significant edema and pain of LUE TECHNIQUE: Real-time imaging, as well as color and pulse Doppler interrogation, was performed of the upper extremity deep veins from the inferior neck to the antecubital fossa. COMPARISON: None. FINDINGS: The internal jugular vein, visualized portions of the subclavian vein, axillary, and brachial veins are free of intraluminal thrombus. Where physically possible, the veins are normally compressible. Color and pulse Doppler demonstrate normal intraluminal flow, with expected phasicity and pulsatility. Additional scanning of the cephalic and basilic veins of the superficial system demonstrates normal compressibility, without thrombus. IMPRESSION: No findings of upper extremity deep venous thrombosis can be seen. Dictated by: Elaine Mitchell M.D. on 03/05/2023 at 16:08 Approved by: Elaine Mitchell M.D. on 03/05/2023 at 16:08
--- NOTE | 2023-03-05 13:46 | DI.RAD.S_ITS ---
PROCEDURE: XR SHOULDER LT MIN 2V INDICATIONS: pain, bruising TECHNIQUE: 2 views of the shoulder were acquired. COMPARISON: [facility], CR, XR SHOULDER LT MIN 2V, 02/12/2023, 14:16. FINDINGS: Bones: Increased, moderate displacement of the comminuted humeral head fracture. Soft tissues: No suspicious soft tissue calcifications. IMPRESSION: Increased displacement of humeral head fracture. Dictated by: Elaine Mitchell M.D. on 03/05/2023 at 14:23 Approved by: Elaine Mitchell M.D. on 03/05/2023 at 14:24
--- NOTE | 2023-03-05 13:46 | DI.RAD.S_ITS ---
PROCEDURE: XR HUMERUS LT 2V INDICATIONS: pain, bruising TECHNIQUE: 2 views of the humerus were acquired. COMPARISON: X-ray left shoulder, 03/05/2023, 02/12/2023. FINDINGS: Bones: There is an acute comminuted humeral head fracture with displacement superimposed on chronic/subacute humeral head neck fracture. Displacement appears increased. Old humeral shaft fracture with internal fixation. No suspicious bony lesions. Note is made of multiple old left rib fractures (please see separate rib x-rays). Soft tissues: No suspicious soft tissue calcifications. IMPRESSION: Acute comminuted fracture of the humeral head. Dictated by: Davi Silva M.D. on 03/05/2023 at 14:21 Approved by: Davi Silva M.D. on 03/05/2023 at 14:23
--- NOTE | 2023-03-05 13:51 | ED.RECABL ---
HPI - Recheck/Abnormal Lab/Rx <Mignon Baker PA-C - Last Filed: 03/05/23 16:33> General Chief Complaint: Recheck/Abnormal Lab/Rx Stated Complaint: 1wk ago broke shoulder here / arm has fluid Time Seen by Provider: 03/05/23 13:21 Source: patient Mode of arrival: Ambulatory History of Present Illness HPI narrative: Patient is a 67-year-old male with past medical history of seizure disorder and alcohol use disorder presents for assessment of LUE. Pertinent history includes -02/12/23: Found found at his apartment complex, thought to have had a seizure. CT head/neck without acute findings. Xrays show mildly displaced fracture of left 5th and 6th ribs, and minimally displaced fracture of left lateral humeral head and left humeral neck. Discharged in sling, advised to f/u with ortho. -Home health ordered by PCP Raf after ED f/u appt 02/19/23. Today, YE Butler went to patient's home to do an intake for services and noted his LUE was edematous, bruised, painful. She could not appreciate a radial pulse. She advised patient to go to ER. -There is report of APS involvement in the chart. Patient currently c/o pain in the LUE, feels like his arm is very swollen and is concerned about bumps in his skin. He denies fever or chills, currently taking Tylenol and drinking beer to deal with the pain. He has been wearing the sling. He has not followed up with Orthopedics. Related Data Home Medications Medication Instructions Recorded Confirmed phenytoin sodium extended 100 mg 100 mg PO QID 09/19/17 02/19/23 capsule trazodone 50 mg tablet 25 mg PO HS PRN Sleep 09/19/17 02/19/23 Previous Rx's Medication Instructions Recorded lidocaine 5 % topical patch 1 patch topical DAILY #30 ea 02/19/23 (DermacinRx Lidocan) lidocaine 5 % topical patch 1 patch topical DAILY #30 ea 02/26/23 (DermacinRx Lidocan) Allergies Allergy/AdvReac Type Severity Reaction Status Date / Time meperidine [MEPERIDINE] AdvReac Unknown Vomiting Verified 02/19/23 10:20 Review of Systems <Mignon Baker PA-C - Last Filed: 03/05/23 16:33> Review of Systems ROS Unobtainable: All systems reviewed & are unremarkable except as noted in HPI and below Patient History <Mignon Baker PA-C - Last Filed: 03/05/23 16:33> Medical History Left elbow fracture Broken neck Multiple falls Cervical spondylosis with myelopathy Marijuana dependence Osteoarthritis Memory loss Osteoarthrosis Epilepsy, unspecified, not intractable, without status epilepticus Alcohol dependence, uncomplicated Surgical History History of neck surgery History of back surgery H/O foot surgery H/O thumb surgery History of esophagogastroduodenoscopy (EGD) History of colonoscopy Family History Father Cancer Aneurysm Mother Cancer Social History marital status: unknown household members: none lives independently: Yes housing: other ([facility]) Smoking Status: Current every day smoker alcohol intake: current Smoking Status: Current every day smoker alcohol intake frequency: 3 or more drinks per day Substance Use Type: marijuana Exam <Mignon Baker PA-C - Last Filed: 03/05/23 16:33> Narrative Exam Narrative: GENERAL: 67 year old patient appears stated age. Well-developed patient, in no acute distress. NEURO: AOx3, pleasant, conversational. HEAD: Atraumatic. Normocephalic. EYES: Pupils equal round and reactive. Extraocular motions intact. No scleral icterus. No injection or drainage. ENT: Nose without bleeding or purulent drainage. Airway patent. CARDIOVASCULAR: Regular rate and rhythm without murmurs, gallops, or rubs. RESPIRATORY: Clear to auscultation. Breath sounds equal bilaterally. No wheezes, rales, or rhonchi. EXTREMITIES: Diffuse edema of the left upper extremity from the shoulder down to the fingers. His arm is firm and tender to light palpation. 2+ radial pulse, hand is warm, ip architect strength is intact. Patient states sensation is intact. Focus of pain is over the posterior humerus. SKIN: There is ecchymosis over the left anterior ribs and up into the left armpit. His left upper extremity is also bruised, he has a blister-like skin texture over his forearm and posterior humerus. There is no crepitus. He has purple ecchymosis over his fingers. Fingers are edematous. Initial Vital Signs Initial Vital Signs: Vital Signs Temperature 98.3 F 03/05/23 13:14 Pulse Rate 88 03/05/23 13:14 Respiratory Rate 18 03/05/23 13:14 Blood Pressure 138/85 03/05/23 13:14 Pulse Oximetry 98 03/05/23 13:14 Oxygen Delivery Method Room Air 03/05/23 13:14 <Vilma Munguia MD - Last Filed: 03/05/23 17:36> Initial Vital Signs Initial Vital Signs: Vital Signs Temperature 98.3 F 03/05/23 13:14 Pulse Rate 88 03/05/23 13:14 Respiratory Rate 18 03/05/23 13:14 Blood Pressure 138/85 03/05/23 13:14 Pulse Oximetry 98 03/05/23 13:14 Oxygen Delivery Method Room Air 03/05/23 13:14 Course <Mignon Baker PA-C - Last Filed: 03/05/23 16:33> Orders Ordered: ED Orders 03/05/23 13:46 US periph venous up extrem lt Stat XR humerus LT 2V Stat XR ribs LT min 3V w CXR1V Stat XR shoulder LT min 2V Stat 03/05/23 13:53 CBC Auto Diff [Complete Blood Count AUTO DIFF] Stat CMP [Comprehensive Metabolic Panel] Stat Ethanol (ETOH) Stat PT [Prothrombin Time INR] Stat PTT Partial Thromboplastin Eduar Stat 03/05/23 14:25 Consult to Home Health Stat Consultations Consultation #1: [id number]: Spoke with Luke of [facility]. Luke had gone to patient's home this morning to do her initial intake for home health services. She identified that the patient had significant pain, bruising and edema of the left upper extremity and advised him to come to the emergency room for assessment. She reports that she has not met him before. Her team has not worked with him previously and she does not know much about him. She does not know if he has had any additional injuries since what is documented in our chart on 02/12. Consultation #2: 1600: Updated Luke re: ER visit and plan. Vital Signs Vital signs: Vital Signs - 8 hr 03/05/23 13:14 03/05/23 15:38 Temperature 98.3 F 98.6 F Pulse Rate 88 82 Respiratory Rate 18 18 Blood Pressure 138/85 145/98 H Pulse Oximetry 98 99 Oxygen Delivery Method Room Air Room Air <Vilma Munguia MD - Last Filed: 03/05/23 17:36> Orders Ordered: ED Orders 03/05/23 13:46 US periph venous up extrem lt Stat XR humerus LT 2V Stat XR ribs LT min 3V w CXR1V Stat XR shoulder LT min 2V Stat 03/05/23 13:53 CBC Auto Diff [Complete Blood Count AUTO DIFF] Stat CMP [Comprehensive Metabolic Panel] Stat Ethanol (ETOH) Stat PT [Prothrombin Time INR] Stat PTT Partial Thromboplastin Eduar Stat 03/05/23 14:25 Consult to Home Health Stat Vital Signs Vital signs: Vital Signs - 8 hr 03/05/23 13:14 03/05/23 15:38 Temperature 98.3 F 98.6 F Pulse Rate 88 82 Respiratory Rate 18 18 Blood Pressure 138/85 145/98 H Pulse Oximetry 98 99 Oxygen Delivery Method Room Air Room Air MDM - Recheck/Abnormal Lab/Rx <Mignon Baker PA-C - Last Filed: 03/05/23 16:33> Lab Data 03/05/23 13:53 03/05/23 13:53 Labs: Lab Results 03/05/23 Range/Units 13:53 WBC 6.1 (4.5-11.0) X10^3/uL RBC 3.30 L (4.5-5.9) X10^6/uL Hgb 11.2 L (13.5-17.5) g/dL Hct 33.2 L (41-53) % MCV 100.4 H (80-100) fL MCH 33.8 (26-34) PG MCHC 33.7 (30-36) % RDW 14.1 (11.6-14.8) % Plt Count 185 (150-400) X10^3/uL Neut % (Auto) 64.9 (50-75) % Lymph % (Auto) 24.2 L (25-40) % Bradford % (Auto) 8.1 (3-14) % Eos % (Auto) 2.2 (2-4) % Baso % (Auto) 0.6 (0-2) % Neut # (Auto) 4000 (1200-6147) /uL Lymph # (Auto) 1500 (3506-3643) /uL Bradford # (Auto) 500 (0-900) /uL Eos # (Auto) 100 (0-450) /uL Baso # (Auto) 0 (0-100) /uL PT 11.3 (9.4-12.5) SECONDS INR 1.0 (0.9-1.3) APTT 28 (25.1-36.5) SECONDS Sodium 126 L (137-145) mmol/L Potassium 4.8 (3.4-5.1) mmol/L Chloride 98 (98-107) mmol/L Carbon Dioxide 19 L (22-32) mmol/L BUN 4 L (9-20) mg/dL Creatinine 0.49 L (0.66-1.25) mg/dL Estimated GFR > 60 (>60) mL/min BUN/Creatinine Ratio 8.2 (6-22) Glucose 93 (80-110) mg/dL Calcium 8.7 (8.4-10.2) mg/dL Total Bilirubin 0.9 (0.2-1.3) mg/dL AST 49 (17-59) IU/L ALT 15 (<50) IU/L Alkaline Phosphatase 89 (38-126) U/L Total Protein 6.9 (6.3-8.2) g/dL Albumin 3.4 L (3.5-5.0) g/dL Globulin 3.5 (1.7-4.1) g/dL Albumin/Globulin Ratio 1.0 (1.0-2.8) Ethyl Alcohol 83 H ( - 10) mg/dL Imaging Data US - DVT: Radiologist's Impression: PROCEDURE: US PERIPH VENOUS UP EXTREM LT INDICATIONS: significant edema and pain of LUE TECHNIQUE: Real-time imaging, as well as color and pulse Doppler interrogation, was performed of the upper extremity deep veins from the inferior neck to the antecubital fossa. COMPARISON: None. FINDINGS: The internal jugular vein, visualized portions of the subclavian vein, axillary, and brachial veins are free of intraluminal thrombus. Where physically possible, the veins are normally compressible. Color and pulse Doppler demonstrate normal intraluminal flow, with expected phasicity and pulsatility. Additional scanning of the cephalic and basilic veins of the superficial system demonstrates normal compressibility, without thrombus. IMPRESSION: No findings of upper extremity deep venous thrombosis can be seen. Dictated by: Elaine Mitchell M.D. on 03/05/2023 at 16:08 Approved by: Elaine Mitchell M.D. on 03/05/2023 at 16:08 Extremity x-ray #1: Radiologist's Impression: PROCEDURE: XR SHOULDER LT MIN 2V INDICATIONS: pain, bruising TECHNIQUE: 2 views of the shoulder were acquired. COMPARISON: [facility], CR, XR SHOULDER LT MIN 2V, 02/12/2023, 14:16. FINDINGS: Bones: Increased, moderate displacement of the comminuted humeral head fracture. Soft tissues: No suspicious soft tissue calcifications. IMPRESSION: Increased displacement of humeral head fracture. Dictated by: Elaine Mitchell M.D. on 03/05/2023 at 14:23 Approved by: Elaine Mitchell M.D. on 03/05/2023 at 14:24 [place] [address] XRay Report Signed Patient: Shine Arthur MR#: [id number] : 1955 Acct:[id number] Age/Sex: 67 / M Date of Service: 03/05/23 Loc: ED Accession Number: [id number] Procedure: XR ribs LT min 3V w CXR1V Ordering Provider: Mignon Baker P.A-C PROCEDURE: XR RIBS LT MIN 3V W CXR1V INDICATIONS: hx rib fractures, extensive bruising over left chest TECHNIQUE: 2 views of the ribs were acquired, along with a single view chest. COMPARISON: [facility], CR, XR CHEST 1V, 02/12/2023, 16:10. [facility], , XR RIBS LT MIN 3V W CXR1V, 07/19/2020, 10:30. FINDINGS: Surgical changes and devices: None. Bones and chest wall: There are multiple old left rib fractures involving the 5th, 6th and 7th ribs. Suspect nondisplaced acute 8th rib fracture No definitive No suspicious bony lesions. Overlying soft tissues appear unremarkable. Note is made of left humeral head and neck fracture (see separate report). Lungs and pleura: No pleural effusions or pneumothorax. Lungs appear clear. Mediastinum: Mediastinal contours appear normal. Heart size is normal. IMPRESSION: 1. Multiple rib fractures are present. The 8th rib fracture is probably acute. Multiple old rib fractures are noted involving the 5th, 6th and 7th ribs. 2. Acute humeral head neck fracture superimposed on chronic/subacute fractures. Dictated by: Davi Silva M.D. on 03/05/2023 at 14:29 Approved by: Davi Silva M.D. on 03/05/2023 at 14:33 PROCEDURE: XR HUMERUS LT 2V INDICATIONS: pain, bruising TECHNIQUE: 2 views of the humerus were acquired. COMPARISON: X-ray left shoulder, 03/05/2023, 02/12/2023. FINDINGS: Bones: There is an acute comminuted humeral head fracture with displacement superimposed on chronic/subacute humeral head neck fracture. Displacement appears increased. Old humeral shaft fracture with internal fixation. No suspicious bony lesions. Note is made of multiple old left rib fractures (please see separate rib x-rays). Soft tissues: No suspicious soft tissue calcifications. IMPRESSION: Acute comminuted fracture of the humeral head. Dictated by: Davi Silva M.D. on 03/05/2023 at 14:21 Approved by: Davi Silva M.D. on 03/05/2023 at 14:23 MDM Narrative Medical decision making narrative: Multiple etiologies for patient's symptoms considered including, but not limited to: Acute on chronic fracture/dislocation, DVT, compartment syndrome, cellulitis Patient has a history of rib fractures and a humeral head fracture, diagnosed 1226. He also sustained a clavicle fracture in December of 2021. Patient presents today for reassessment of his left upper extremity swelling pain ecchymosis. He has a very poor historian. He does not think he has had any significant falls since 02/12. He has no other visits in our system. His ecchymosis and swelling is significant and it is unclear if this is due to immobilization and dependency in the sling or if he has re-injured the area. Patient drinks heavily daily and has long history of falls as well as seizures. Based on these risk factors and his exam, today we will repeat x-rays of his humerus, shoulder and ribs as well as complete a DVT study of his left upper extremity to rule out a DVT that could be causing his edema and pain. We will also check labs. Labs without clinically significant abnormality, hyponatremia stable from past, likely due to beer drinking. Decrease in hemoglobin from 12.9->11.2 since 02/12; patient denies blood in his stool or urine, does have extensive bruising over his chest wall and left upper extremity. Alcohol level 83 while in emergency department. X-ray show worsened displacement of the humeral head fracture. Also note a 4th rib fracture, unclear if this is new or newly identified from previous fall. I was able to make patient an appointment for Friday morning at [facility] [place]. Patient given the instructions for this appointment, thinks his friend can drive him. I also updated his home health nurse. [employer] will also follow up in regards to a home social work assessment. Update sent to Dr. Carbone's team. Patient's symptoms improved over duration of stay with above-stated therapies. Findings and discharge diagnosis discussed with patient/family followed by verbalization of understanding Return precautions discussed with patient/family whom verbalize understanding of diagnosis and plan <Vilma Munguia MD - Last Filed: 03/05/23 17:36> Lab Data Labs: Lab Results 03/05/23 Range/Units 13:53 WBC 6.1 (4.5-11.0) X10^3/uL RBC 3.30 L (4.5-5.9) X10^6/uL Hgb 11.2 L (13.5-17.5) g/dL Hct 33.2 L (41-53) % MCV 100.4 H (80-100) fL MCH 33.8 (26-34) PG MCHC 33.7 (30-36) % RDW 14.1 (11.6-14.8) % Plt Count 185 (150-400) X10^3/uL Neut % (Auto) 64.9 (50-75) % Lymph % (Auto) 24.2 L (25-40) % Bradford % (Auto) 8.1 (3-14) % Eos % (Auto) 2.2 (2-4) % Baso % (Auto) 0.6 (0-2) % Neut # (Auto) 4000 (0086-4452) /uL Lymph # (Auto) 1500 (5987-3005) /uL Bradford # (Auto) 500 (0-900) /uL Eos # (Auto) 100 (0-450) /uL Baso # (Auto) 0 (0-100) /uL PT 11.3 (9.4-12.5) SECONDS INR 1.0 (0.9-1.3) APTT 28 (25.1-36.5) SECONDS Sodium 126 L (137-145) mmol/L Potassium 4.8 (3.4-5.1) mmol/L Chloride 98 (98-107) mmol/L Carbon Dioxide 19 L (22-32) mmol/L BUN 4 L (9-20) mg/dL Creatinine 0.49 L (0.66-1.25) mg/dL Estimated GFR > 60 (>60) mL/min BUN/Creatinine Ratio 8.2 (6-22) Glucose 93 (80-110) mg/dL Calcium 8.7 (8.4-10.2) mg/dL Total Bilirubin 0.9 (0.2-1.3) mg/dL AST 49 (17-59) IU/L ALT 15 (<50) IU/L Alkaline Phosphatase 89 (38-126) U/L Total Protein 6.9 (6.3-8.2) g/dL Albumin 3.4 L (3.5-5.0) g/dL Globulin 3.5 (1.7-4.1) g/dL Albumin/Globulin Ratio 1.0 (1.0-2.8) Ethyl Alcohol 83 H ( - 10) mg/dL Discharge Plan Departure Patient Disposition: Home Clinical Impression: Fracture of head of humerus Qualifiers: Encounter type: subsequent encounter Fracture type: closed Laterality: left Fracture healing: with delayed healing Qualified Code(s): S42.292G - Other displaced fracture of upper end of left humerus, subsequent encounter for fracture with delayed healing Left rib fracture Qualifiers: Encounter type: subsequent encounter Rib fracture type: multiple ribs Fracture type: closed Fracture healing: with routine healing Qualified Code(s): S22.42XD - Multiple fractures of ribs, left side, subsequent encounter for fracture with routine healing Instructions: How To Perform RICE (Rest, Ice, Compress, Elevate) Activity Restrictions/Additional Instructions: Please go to see Dr. Montesinos on 03/10/23 at 8:10am in [place] at [facility] ([address] *You have been diagnosed with humeral head fracture, more displaced than previously. You also have multiple rib fractures. Like we discussed, it is very important to elevate your arm whenever possible. If you are resting or in bed, please prop your left arm up on some pillows or blankets so that it is above the level of your heart. This will help decrease the swelling and the pain. We also did an ultrasound today to assess for a blood clot in your arm, we did not find any blood clot. I would suggest continuing to take Tylenol for pain. You can apply ice to your arm to help with the pain as well. It is very important that you follow up with the orthopedic doctor on Friday. I will also let the home health nurse no about this appointment and hopefully they can help make sure you get there. *What to do: *Please continue to take your regular medications as directed. [ ] New medication prescriptions sent to your pharmacy: [ ] [ ] New medication written as a paper prescription [x] No new medications given *Please follow up with your primary care provider in 2-3 days, call for an appointment. Let them know you were seen in the Emergency Department and that we ask that you be seen in follow up. We will electronically transmit a record of today's note if your PCP is in our system *If you do not have a primary care provider please contact the [facility] Resource line at [phone]. They will ask some questions about your medical history and help get you set up with a doctor in the community. *Return to Emergency Department if you should have any new, worsening or concerning symptoms, such as [fever greater than 101 F, shaking chills, worsening pain, persistent vomiting or other concerning symptoms]. Prescriptions: No Action lidocaine [DermacinRx Lidocan] 5 % adhesive patch,medicated 1 patch topical DAILY Qty: 30 1RF Rx Instructions: leave on most painful area for up to 12 hrs lidocaine [DermacinRx Lidocan] 5 % adhesive patch,medicated 1 patch topical DAILY Qty: 30 1RF Rx Instructions: leave on most painful area for up to 12 hrs phenytoin sodium extended 100 mg Capsule 100 mg PO QID Rx Instructions: 1-3x/day trazodone 50 MG tablet 25 mg PO HS PRN (Reason: Sleep) Referrals: Noris Shipley MD [Primary Care Provider] - Stand Alone Forms: Patient Portal/API ED Sign-out <Vilma Munguia MD - Last Filed: 03/05/23 17:36> Cosign ED Attending Cosignature Attestation: I did not see this patient. I was available all times for consultation.
[2023-03-05 14:00] LABS: Add Manual Diff / Slide Review NO; Basophils Absolute Auto 0 /uL (0-100); Basophils Percent Auto 0.6 % (0-2); Eosinophils Absolute Auto 100 /uL (0-450); Eosinophils Percent Auto 2.2 % (2-4); Hematocrit 33.2 % (41-53); Hemoglobin 11.2 g/dL (13.5-17.5); Lymphocytes Absolute Auto 1500 /uL (1100-4500); Lymphocytes Percent Auto 24.2 % (25-40); Mean Corpuscular HGB Conc 33.7 % (30-36); Mean Corpuscular Hemoglobin 33.8 PG (26-34); Mean Corpuscular Volume 100.4 fL (80-100); Monocytes Absolute Auto 500 /uL (0-900); Monocytes Percent Auto 8.1 % (3-14); Neutrophils Absolute Auto 4000 /uL (1500-7000); Neutrophils Percent Auto 64.9 % (50-75); Platelet Count 185 X10^3/uL (150-400); Red Cell Distribution Width 14.1 % (11.6-14.8); White Blood Cell Count 6.1 X10^3/uL (4.5-11.0)
[2023-03-05 14:09] LABS: Prothrombin Time 11.3 SECONDS (9.4-12.5)
[2023-03-05 14:11] LABS: PTT Partial Thromboplastin Tim 28 SECONDS (25.1-36.5)
[2023-03-05 14:12] LABS: Alanine Aminotransferase 15 IU/L (<50); Albumin 3.4 g/dL (3.5-5.0); Alkaline Phosphatase 89 U/L (38-126); Aspartate Aminotransferase 49 IU/L (17-59); BUN Creatinine Ratio 8.2 (6-22); Bilirubin Total 0.9 mg/dL (0.2-1.3); Blood Urea Nitrogen 4 mg/dL (9-20); Calcium 8.7 mg/dL (8.4-10.2); Carbon Dioxide 19 mmol/L (22-32); Chloride 98 mmol/L (98-107); Estimated Glomerular Filt Rate > 60 mL/min (>60); Ethanol (ETOH) 83 mg/dL; Globulin 3.5 g/dL (1.7-4.1); Glucose 93 mg/dL (80-110); Sodium 126 mmol/L (137-145); Total Protein 6.9 g/dL (6.3-8.2)
[2023-03-05 14:23] LABS: HEMOLYSIS 87 (0-50)
[2023-03-05 14:24] LABS: Potassium 4.8 mmol/L (3.4-5.1)
--- NOTE | 2023-03-05 14:28 | CM.SWNOTE ---
Social Work Note [employer] [facility] reviewed pt's chart, per ED provider's request, for any recent ED visits at other hosptals lately. Unable to access [facility]. No records in scanning. Pt had been scheduled to start w/[facility] this morning, the RN arrived and after her initial assessment sent him to the ED for further assessment of multiple fractures and a painful arm. Hx of daily alcohol BERNADINE. Plan: Called [facility] and requested that [facility] Assessment be added to his care plan. Entered HH order for [facility] in EMR. This [facility] provided them the Care Management contact info should they need any further F/F orders.
[2023-03-05 15:38] VITALS: BP 145/98; PULSE 82; RESP 18; TEMP 37; O2SAT 99
== END 2023-03-05 16:08 | disposition home or self-care (01) ==
PROVIDERS: Emergency Provider Physician Assistant; Family Provider Internal Medicine; PCP Family Medicine
DX: S42.292G Other displaced fracture of upper end of left humerus, subsequent encounter for fracture with delayed healing (principal); S22.42XD Multiple fractures of ribs, left side, subsequent encounter for fracture with routine healing
CPT/HCPCS: 36415; 71101; 73030; 73060; 80053; 80320; 85025; 85610; 85730; 93971; 99284

== ENCOUNTER → 2023-03-13 10:11 | Outpatient (CLI) | payer MEDICARE, MEDICAID, SELFPAY ==
[2023-03-13 12:10] LABS: Add Manual Diff / Slide Review NO; Basophils Absolute Auto 100 /uL (0-100); Basophils Percent Auto 1.2 % (0-2); Eosinophils Absolute Auto 100 /uL (0-450); Eosinophils Percent Auto 1.4 % (2-4); Hematocrit 37.2 % (41-53); Hemoglobin 12.5 g/dL (13.5-17.5); Lymphocytes Absolute Auto 900 /uL (1100-4500); Lymphocytes Percent Auto 19.2 % (25-40); Mean Corpuscular HGB Conc 33.7 % (30-36); Mean Corpuscular Hemoglobin 34.1 PG (26-34); Mean Corpuscular Volume 101.3 fL (80-100); Monocytes Absolute Auto 500 /uL (0-900); Monocytes Percent Auto 9.2 % (3-14); Neutrophils Absolute Auto 3400 /uL (1500-7000); Platelet Count 169 X10^3/uL (150-400); Red Blood Cell Count 3.67 X10^6/uL (4.5-5.9); White Blood Cell Count 4.9 X10^3/uL (4.5-11.0)
[2023-03-13 12:32] LABS: Alanine Aminotransferase 12 IU/L (<50); Albumin 3.5 g/dL (3.5-5.0); Albumin Globulin Ratio 1.1 (1.0-2.8); Alkaline Phosphatase 135 U/L (38-126); Aspartate Aminotransferase 25 IU/L (17-59); BUN Creatinine Ratio 10.5 (6-22); Bilirubin Total 0.6 mg/dL (0.2-1.3); Blood Urea Nitrogen 6 mg/dL (9-20); Calcium 9.4 mg/dL (8.4-10.2); Carbon Dioxide 24 mmol/L (22-32); Chloride 96 mmol/L (98-107); Cholesterol 168 mg/dL (140-199); Estimated Glomerular Filt Rate > 60 mL/min (>60); Globulin 3.2 g/dL (1.7-4.1); Glucose 95 mg/dL (80-110); HDL Cholesterol 82 mg/dL (40-60); HEMOLYSIS < 15 (0-50); LDL Cholesterol Calculated 74 mg/dL (<100); Magnesium 1.9 mg/dL (1.6-2.3); Potassium 4.1 mmol/L (3.4-5.1); Sodium 129 mmol/L (137-145); Total Protein 6.7 g/dL (6.3-8.2); Triglycerides 58 mg/dL (35-150)
[2023-03-13 13:02] LABS: TSH w/ Reflex to FT4 2.47 uIU/mL (0.47-4.68)
[2023-03-13 13:24] LABS: Vitamin B12 463 pg/mL (239-931)
== END ==
PROVIDERS: Family Provider Internal Medicine; PCP Family Medicine; Referring Provider Family Medicine; Visit Provider Family Medicine
DX: R56.9 Unspecified convulsions (principal); F10.20 Alcohol dependence, uncomplicated; G47.9 Sleep disorder, unspecified; R26.89 Other abnormalities of gait and mobility
CPT/HCPCS: 36415; 80053; 80061; 82607; 83735; 84443; 85025

== ENCOUNTER 2023-04-24 09:42 | Observation (INO) | payer MEDICARE, MEDICAID, SELFPAY ==
[2023-04-24] VITALS (45 sets, daily range): BP systolic 111–229; BP diastolic 78–116; PULSE 72–106; RESP 15–27; TEMP 36.4–37; O2SAT 92–100; BMI 25.1; BMI 21.6
--- NOTE | 2023-04-24 | DI.RAD.S_ITS ---
PROCEDURE: XR CHEST 1V INDICATIONS: CHEST PAIN TECHNIQUE: One view of the chest was acquired. COMPARISON: [facility], CR, XR CHEST 1V, 02/12/2023, 16:10. FINDINGS: Surgical changes and devices: None. Lungs and pleura: Lungs are clear. No pleural effusions or pneumothorax. Mediastinum: Mediastinal contours appear normal. Heart size is normal. Bones and chest wall: No suspicious bony lesions. Overlying soft tissues appear unremarkable. IMPRESSION: No acute cardiopulmonary abnormality is seen. Dictated by: Elaine Mitchell M.D. on 04/24/2023 at 10:27 Approved by: Elaine Mitchell M.D. on 04/24/2023 at 10:27
[2023-04-24 10:18] LABS: Add Manual Diff / Slide Review NO; Basophils Absolute Auto 100 /uL (0-100); Basophils Percent Auto 0.9 % (0-2); Eosinophils Absolute Auto 200 /uL (0-450); Eosinophils Percent Auto 2.7 % (2-4); Hematocrit 39.5 % (41-53); Hemoglobin 13.7 g/dL (13.5-17.5); Lymphocytes Absolute Auto 1100 /uL (1100-4500); Lymphocytes Percent Auto 14.1 % (25-40); Mean Corpuscular HGB Conc 34.6 % (30-36); Mean Corpuscular Hemoglobin 33.1 PG (26-34); Mean Corpuscular Volume 95.5 fL (80-100); Monocytes Absolute Auto 400 /uL (0-900); Monocytes Percent Auto 5.2 % (3-14); Neutrophils Absolute Auto 5800 /uL (1500-7000); Neutrophils Percent Auto 77.1 % (50-75); Platelet Count 145 X10^3/uL (150-400); Red Blood Cell Count 4.14 X10^6/uL (4.5-5.9); Red Cell Distribution Width 13.3 % (11.6-14.8); White Blood Cell Count 7.6 X10^3/uL (4.5-11.0)
[2023-04-24 10:20] LABS: INR 1.1 (0.9-1.3)
[2023-04-24 10:23] LABS: Lactate (Lactic Acid) 2.5 mmol/L (0.7-2.1)
[2023-04-24 10:24] LABS: Alanine Aminotransferase 13 IU/L (<50); Albumin Globulin Ratio 0.9 (1.0-2.8); Alkaline Phosphatase 126 U/L (38-126); Aspartate Aminotransferase 25 IU/L (17-59); BUN Creatinine Ratio 9.1 (6-22); Bilirubin Total 0.9 mg/dL (0.2-1.3); Blood Urea Nitrogen 5 mg/dL (9-20); Calcium 8.6 mg/dL (8.4-10.2); Carbon Dioxide 15 mmol/L (22-32); Chloride 100 mmol/L (98-107); Estimated Glomerular Filt Rate > 60 mL/min (>60); Globulin 3.2 g/dL (1.7-4.1); Glucose 109 mg/dL (80-110); HEMOLYSIS < 15 (0-50); Potassium 3.8 mmol/L (3.4-5.1); Sodium 124 mmol/L (137-145); Total Protein 6.2 g/dL (6.3-8.2)
[2023-04-24 10:35] LABS: NT-proBNP (BNP-Adult 18+) 740 pg/mL (<125); Troponin I < 0.012 ng/mL (0.01-0.034)
--- NOTE | 2023-04-24 11:04 | ED_ITS ---
HPI - Weakness General Chief complaint: Shortness of Breath/Dyspnea Stated complaint: Weakness, Lightheaded Time Seen by Provider: 04/24/23 10:11 Source: patient and EMS Mode of arrival: EMS History of Present Illness HPI Narrative: Patient brought in by ambulance from a local bank. He states he was in his usual state of health last night. Today he awoke very tired fatigued. No energy. Denies denies any chest pain. Does have a little bit of short of breath he states. No nausea vomiting diarrhea. No cough cold congestion. No sick contacts. Patient does live in a adult family home. No heart attack strokes or diabetes history. Denies any seizures. Patient in no distress at this time. Speaking full sentences. No urinary complaints Related Data Home Medications Medication Instructions Recorded Confirmed phenytoin sodium extended 100 mg 100 mg PO DAILY 04/24/23 04/24/23 capsule (Dilantin Extended) phenytoin sodium extended 100 mg 200 mg PO 1200,2100 04/24/23 04/24/23 capsule (Dilantin Extended) Previous Rx's Medication Instructions Recorded amlodipine 5 mg tablet 5 mg PO DAILY #30 tabs 04/25/23 Allergies Allergy/AdvReac Type Severity Reaction Status Date / Time meperidine [MEPERIDINE] AdvReac Unknown Vomiting Verified 03/13/23 09:32 Review of Systems Review of Systems Narrative: GENERAL: negative chills, positive fatigue, malaise, negative fever, sweats. HEENT: negative sinus pain, ear pain, sore throat RESPIRATORY: negative dyspnea, cough CARDIOVASCULAR: negative chest pain, palpitations GASTROINTESTINAL: negative nausea, vomiting, abdominal pain : negative dysuria, frequency, hematuria MUSCULOSKELETAL: negative muscle or bony pain SKIN: negative rash, skin lesions NEUROLOGIC: negative weakness, numbness ROS Unobtainable: All systems reviewed & are unremarkable except as noted in HPI and below Patient History Medical History Left elbow fracture Broken neck Multiple falls Cervical spondylosis with myelopathy Marijuana dependence Osteoarthritis Memory loss Osteoarthrosis Epilepsy, unspecified, not intractable, without status epilepticus Alcohol dependence, uncomplicated Surgical History History of neck surgery History of back surgery H/O foot surgery H/O thumb surgery History of esophagogastroduodenoscopy (EGD) History of colonoscopy Family History Father Cancer Aneurysm Mother Cancer Social History marital status: unknown household members: none lives independently: Yes housing: other ([facility]) Smoking Status: Current every day smoker alcohol intake: current Smoking Status: Current every day smoker tobacco type: cigarettes alcohol intake frequency: 3 or more drinks per day Alcohol type: beer and hard liquor Substance Use Type: marijuana Exam Narrative Exam Narrative: GENERAL: in no distress, not toxic not dyspneic HEAD: Normocephalic. EYES: Pupils equal round ENT: Mucous membranes moist. NECK: Trachea midline. CARDIOVASCULAR: Regular rate and rhythm RESPIRATORY: Clear to auscultation. Breath sounds equal bilaterally. No wheezes, rales, or rhonchi. GASTROINTESTINAL: Abdomen soft, non-tender EXTREMITIES: No gross deformities. BACK: No flank tenderness. NEURO: AOx4. SKIN: Warm and dry PSYCH: Not anxious, is cooperative Initial Vital Signs Initial Vital Signs: Vital Signs Pulse Rate 95 H 04/24/23 09:50 Pulse Oximetry 95 04/24/23 09:50 Oxygen Delivery Method Nasal Cannula 04/24/23 09:50 Oxygen Flow Rate 2 04/24/23 09:50 Course Orders Ordered: Discontinued Medications Acetaminophen (Acetaminophen 325 Mg Tablet) 650 mg PO Q6H PRN PRN Reason: Fever/Mild Pain (1-3) Amlodipine Besylate (Amlodipine 5 Mg Tablet) 5 mg PO DAILY [facility] Last Admin: 04/25/23 09:29 Dose: 5 mg Documented By: Admin: 04/24/23 14:09 Dose: 5 mg Documented By: AMY Clonidine HCl (Clonidine 0.1 Mg Tablet) 0.1 mg PO Q4HR PRN PRN Reason: Alcohol Withdrawal Last Admin: 04/24/23 14:09 Dose: 0.1 mg Documented By: AMY Folic Acid (Folic Acid 1 Mg Tablet) 1 mg PO DAILY [facility] Last Admin: 04/25/23 09:29 Dose: 1 mg Documented By: Admin: 04/24/23 14:09 Dose: 1 mg Documented By: AMY Heparin Sodium (Porcine) (Heparin 5,000 Unit/Ml Vial) 5,000 unit SUBCUT BID [facility] Last Admin: 04/25/23 09:29 Dose: 5,000 unit Documented By: Admin: 04/24/23 20:34 Dose: 5,000 unit Documented By: Admin: 04/24/23 14:08 Dose: 5,000 unit Documented By: AMY Hydralazine HCl (Hydralazine 20 Mg/Ml Vial) 5 mg IV NOW ONE Stop: 04/24/23 13:36 Last Admin: 04/24/23 14:15 Dose: 5 mg Documented By: AMY Sodium Chloride (Normal Saline 0.9%) 1,000 mls @ 1,000 mls/hr IV BOLUS ONE Stop: 04/24/23 12:11 Last Infusion: 04/24/23 14:04 Dose: Infused Documented By: Admin: 04/24/23 11:15 Dose: 1,000 mls/hr Documented By: AMBIKA Sodium Chloride (Normal Saline 0.45%) 1,000 mls @ 100 mls/hr IV CONT BELKIS Last Admin: 04/24/23 23:51 Dose: 100 mls/hr Documented By: Infusion: 04/24/23 23:51 Dose: Infused Documented By: Admin: 04/24/23 14:09 Dose: 100 mls/hr Documented By: AMY Ceftriaxone Sodium 1,000 mg/ (Sodium Chloride) 100 mls @ 200 mls/hr IV Q24H [facility] Last Infusion: 04/24/23 19:13 Dose: Infused Documented By: Admin: 04/24/23 18:43 Dose: 200 mls/hr Documented By: SD Azithromycin 500 mg/ Dextrose 250 mls @ 250 mls/hr IV Q24H [facility] Last Infusion: 04/25/23 07:13 Dose: Infused Documented By: Admin: 04/24/23 19:13 Dose: 250 mls/hr Documented By: SD Lorazepam (Lorazepam 1 Mg Tablet) 2 mg PO Q8HR BELKIS; Protocol Last Admin: 04/24/23 14:41 Dose: Not Given Documented By: SD Lorazepam (Lorazepam 2 Mg/Ml Inj) 0 mg IV CIWAPRN PRN; Protocol PRN Reason: Alcohol Withdrawal Lorazepam (Lorazepam 1 Mg Tablet) 0 mg PO CIWAPRN PRN; Protocol PRN Reason: Alcohol Withdrawal Multivitamins (Multivitamin 1 Tablet) 1 tab PO DAILY [facility] Last Admin: 04/25/23 09:29 Dose: 1 tab Documented By: Admin: 04/24/23 14:09 Dose: 1 tab Documented By: AMY Naloxone HCl (Naloxone 0.4 Mg/Ml Vial) 0.2 mg IV Q2MIN PRN PRN Reason: Opiate Reversal Ondansetron HCl (Ondansetron 4 Mg/2 Ml Inj) 4 mg IV Q4HR PRN PRN Reason: Nausea And Vomiting Last Admin: 04/24/23 14:48 Dose: 4 mg Documented By: SD Phenytoin Sodium (Phenytoin Er 100 Mg Capsule) 100 mg PO DAILY [facility] Last Admin: 04/25/23 09:29 Dose: 100 mg Documented By: BALA Phenytoin Sodium (Phenytoin Er 100 Mg Capsule) 200 mg PO 1200,2100 [facility] Last Admin: 04/25/23 12:26 Dose: 200 mg Documented By: Admin: 04/24/23 23:51 Dose: Not Given Documented By: Admin: 04/24/23 15:23 Dose: 200 mg Documented By: SD Thiamine HCl (Thiamine 100 Mg Tablet) 100 mg PO DAILY [facility] Stop: 04/27/23 09:01 Last Admin: 04/25/23 09:29 Dose: 100 mg Documented By: Admin: 04/24/23 14:09 Dose: 100 mg Documented By: AMY Vital Signs Vital signs: Vital Signs - 8 hr 04/24/23 09:50 04/24/23 09:52 04/24/23 09:52 Temperature Pulse Rate 95 H 93 H Respiratory Rate 18 Blood Pressure 165/107 H Pulse Oximetry 95 99 Oxygen Delivery Method Nasal Cannula Oxygen Flow Rate 2 04/24/23 10:00 04/24/23 10:02 04/24/23 10:30 Temperature 98.6 F Pulse Rate 90 100 H 93 H Respiratory Rate 21 18 22 Blood Pressure 165/107 H Pulse Oximetry 100 99 100 Oxygen Delivery Method Nasal Cannula Oxygen Flow Rate 2 04/24/23 11:00 Temperature Pulse Rate 89 Respiratory Rate 25 H Blood Pressure Pulse Oximetry 100 Oxygen Delivery Method Oxygen Flow Rate MDM - Weakness Lab Data 04/24/23 10:14 04/25/23 04:25 Labs: Lab Results 04/24/23 04/24/23 Range/Units 10:14 11:17 WBC 7.6 (4.5-11.0) X10^3/uL RBC 4.14 L (4.5-5.9) X10^6/uL Hgb 13.7 (13.5-17.5) g/dL Hct 39.5 L (41-53) % MCV 95.5 (80-100) fL MCH 33.1 (26-34) PG MCHC 34.6 (30-36) % RDW 13.3 (11.6-14.8) % Plt Count 145 L (150-400) X10^3/uL Neut % (Auto) 77.1 H (50-75) % Lymph % (Auto) 14.1 L (25-40) % [place] % (Auto) 5.2 (3-14) % Eos % (Auto) 2.7 (2-4) % Baso % (Auto) 0.9 (0-2) % Neut # (Auto) 5800 (0919-4381) /uL Lymph # (Auto) 1100 (9742-6842) /uL [place] # (Auto) 400 (0-900) /uL Eos # (Auto) 200 (0-450) /uL Baso # (Auto) 100 (0-100) /uL PT 13.0 H (9.4-12.5) SECONDS INR 1.1 (0.9-1.3) Sodium 124 L (137-145) mmol/L Potassium 3.8 (3.4-5.1) mmol/L Chloride 100 (98-107) mmol/L Carbon Dioxide 15 L (22-32) mmol/L BUN 5 L (9-20) mg/dL Creatinine 0.55 L (0.66-1.25) mg/dL Estimated GFR > 60 (>60) mL/min BUN/Creatinine Ratio 9.1 (6-22) Glucose 109 (80-110) mg/dL Lactate 2.5 H (0.7-2.1) mmol/L Calcium 8.6 (8.4-10.2) mg/dL Total Bilirubin 0.9 (0.2-1.3) mg/dL AST 25 (17-59) IU/L ALT 13 (<50) IU/L Alkaline Phosphatase 126 (38-126) U/L Troponin I < 0.012 (0.01-0.034) ng/mL NT-Pro-B Natriuret Pep 740 H (<125) pg/mL Total Protein 6.2 L (6.3-8.2) g/dL Albumin 3.0 L (3.5-5.0) g/dL Globulin 3.2 (1.7-4.1) g/dL Albumin/Globulin Ratio 0.9 L (1.0-2.8) Ethyl Alcohol < 10 ( - 10) mg/dL Chlamy pneumoniae PCR Not detected (Not Detect) Adenovirus (PCR) Not detected (Not Detect) B.parapertussis DNA PCR Not detected (Not Detecte) Coronavirus OC43 (PCR) Not detected (Not Detect) Coronavirus HKU1 (PCR) Not detected (Not Detect) Coronavirus 229E (PCR) Not detected (Not Detect) SARS-CoV-2 (PCR) Not detected (Not Detecte) Coronavirus NL63 (PCR) Not detected (Not Detect) Human Metapneumovir PCR Not detected (Not Detect) Influenza Type A (PCR) Not detected (Not Detect) Influenza Type B (PCR) Not detected (Not Detect) M. pneumoniae (PCR) Not detected (Not Detect) Parainfluenza 1 (PCR) Not detected (Not Detect) Parainfluenza 2 (PCR) Not detected (Not Detect) Parainfluenza 3 (PCR) Not detected (Not Detect) Parainfluenza 4 (PCR) Not detected (Not Detect) RSV (PCR) Not detected (Not Detect) Entero/Rhino (PCR) Not detected (Not Detect) Imaging Data Chest x-ray: Radiologist Impression: [address] [address] XRay Report Signed Patient: Shine Arthur MR#: [id number] : 1955 Acct:[id number] Age/Sex: 67 / M Date of Service: 04/24/23 Loc: ED Accession Number: [id number] Procedure: XR chest 1V Ordering Provider: Michael Wang MD PROCEDURE: XR CHEST 1V INDICATIONS: CHEST PAIN TECHNIQUE: One view of the chest was acquired. COMPARISON: [facility], , XR CHEST 1V, 02/12/2023, 16:10. FINDINGS: Surgical changes and devices: None. Lungs and pleura: Lungs are clear. No pleural effusions or pneumothorax. Mediastinum: Mediastinal contours appear normal. Heart size is normal. Bones and chest wall: No suspicious bony lesions. Overlying soft tissues appear unremarkable. IMPRESSION: No acute cardiopulmonary abnormality is seen. Dictated by: Elaine Mitchell M.D. on 04/24/2023 at 10:27 Approved by: Elaine Mtichell M.D. on 04/24/2023 at 10:27 [facility] Narrative Medical decision making narrative: Patient brought in by ambulance from a local bank. He states he was in his usual state of health last night. Today he awoke very tired fatigued. No energy. Denies denies any chest pain. Does have a little bit of short of breath he states. No nausea vomiting diarrhea. No cough cold congestion. No sick contacts. Patient does live in a adult family home. No heart attack strokes or diabetes history. Denies any seizures. Patient in no distress at this time. Speaking full sentences. No urinary complaints After history and exam CBC CMP troponin EKG chest x-ray respiratory panel urinalysis drug screen alcohol level normal saline [facility] CC: Weakness Complicating co-morbidities: Alcohol dependence history of seizure Data collected from: Patient Medical records reviewed: No recent visit here for this complaint Differential considered: Includes but not limited to dehydration seizure COPD viral syndrome UTI Exam documented above, pertinent findings include: Awake alert oriented x4 Lab Test results independently reviewed as above. Pertinent findings: WBC 7.6 hemoglobin 13.7 INR 1.1 sodium 124, patient sodium is slightly lower than 2 months ago. Potassium 3.8 bicarb 15 BUN 5 creatinine 0.55 Lactate 2.5 troponin less than 0.012, BNP 740 Independently reviewed EKG normal sinus rhythm rate [address] elevation or depression Imaging studies independently reviewed: Chest x-ray no acute finding Consultations: 11:[address] Azar, hospitalist, who will admit patient. Treatments: Normal saline Re-evaluations: Updated patient results and he does agree for admission. Discussion: Appropriate for admission for symptomatic hyponatremia. Patient is lower in his baseline of sodium. This is relatively new since February of this year. Diagnosis: Hyponatremia Discharge Plan Departure Patient Disposition: Admitted as Observation Clinical Impression: Acute hyponatremia Admit Date/Time: 04/24/23 11:57 Admit Provider: Federico Azar
[2023-04-24] MEDS: SODIUM CHLORIDE 0.9% 1,000 ML 1000 ML IV (11:15)
[2023-04-24 11:25] LABS: Ethanol (ETOH) < 10 mg/dL
[2023-04-24 11:50] LABS: Reflexed Lactate in 2 Hours Y
[2023-04-24 12:12] LABS: Adenovirus Not Detected (Not Detect); B. parapertussis Not Detected (Not Detecte); Bordetella pertussis Not Detected (Not Detect); Chlamydophila pneumoniae Not Detected (Not Detect); Coronavirus 229E Not Detected (Not Detect); Coronavirus HKU1 Not Detected (Not Detect); Coronavirus NL 63 Not Detected (Not Detect); Coronavirus OC43 Not Detected (Not Detect); Human Metapneumovirus Not Detected (Not Detect); Human Rhinovirus/Enterovirus Not Detected (Not Detect); Influenza A Not Detected (Not Detect); Influenza B Not Detected (Not Detect); Mycoplasma pneumoniae Not Detected (Not Detect); Parainfluenza Virus 1 Not Detected (Not Detect); Parainfluenza Virus 2 Not Detected (Not Detect); Parainfluenza Virus 3 Not Detected (Not Detect); Parainfluenza Virus 4 Not Detected (Not Detect); Respiratory Syncytial Virus Not Detected (Not Detect); SARS- CoV-2 Not Detected (Not Detecte)
--- NOTE | 2023-04-24 12:42 | CM.IDA ---
Addendum entered by RAFAEL Baker 04/25/23 13:20: ADD: Patient discharged 3; denies needs from this CM team. Patient adamant that he is leaving. Transport via [facility]. Original Note: Initial DCP Assessment Patient is 67 y/o male who presents to ED via EMS due to concern for SOB & low O2 stats. Patient states he planned to walk to the store and went to the bank and when he arrived at the bank he felt SOB and the bank staff called 911. Patient's PCP is Dr. Shipley, patient had recent appt in February 2023, patient has [facility] MCR and Medicaid insurance. Patient has hx of Epilepsy, memory loss, ETOH dependence, balance disorder and sleep disorder. Patient has hx of GLFs and various fractures. JITTERBUG OPERATOR reviews EMR and identifies hx of [facility] services. JITTERBUG OPERATOR calls Akil at [facility] and it is reported that patient's services ended on 03/26/23. JITTERBUG OPERATOR enters room to meet with patient, patient presents as A/Ox4, patient states he resides at home alone in [place] [facility]. Patient endorses independence with ADLs, denies issues at home and states that he has three friends and neighbors that check on him periodically. Patient reports he has noticed that he has had trouble sleeping at night. Patient endorses his basic needs are met. Patient endorses he uses a cane to ambulate, but recently got an electric scooter. Patient states for transportation he usually walks or gets rides from friends. When asked about hx of [facility], patient denies hx of this service. Per triage, patient drinks 3 or more ETOH beverages a day, hx of marijuana and daily tobacco use. Per ED provider, patient is to be admitted due to concern for acute hyponatremia. Plan: patient to admit to acute care, DCP to f/u with POC, patient may benefit from PT eval to determine need for HH. LIZBETH Roth Discharge Planning/Care Management CM Discharge Assessment Start: 04/24/23 12:37 Freq: Status: Active Protocol: Document 04/24/23 12:38 LN (Rec: 04/24/23 12:41 LN [id number]) Discharge Planning Assessment Assigned Doctor Of Naturopathic Medicine LIZBETH Guzman Advance Directives? No Advance Directives on File No History Provided By Patient,Medical Record Has Patient been admitted in last 30 No days? Prior Living Arrangements Apartment/Condo Comment [facility] Subsidized Apartments Household Members none Type of transporation used prior to Relies on Others admit Independent with ADL's Yes Is patient alert and oriented? Yes Caregiver for Another No DME Already Rented / Owned Cane,Other Comment Patient states his friend just gave him an electric scooter Comment Patient has hx of [facility] per EMR but patient denies hx of HH, patient may benefit from further discussion about HH if appropriate. Please Provide Date Initial DC 04/24/23 Assessment Was Performed
[2023-04-24 12:47] LABS: Lactate 2HR (Lactic Acid Rflx) 1.5 mmol/L (0.7-2.1)
[2023-04-24 13:00] LABS: Appearance Urine UA CLEAR; Bilirubin Urine UA NEGATIVE (NEGATIVE); Color Urine UA YELLOW; Glucose Urine UA NEGATIVE (Negative); Ketones Urine UA TRACE (NEGATIVE); Leukocyte Esterase Urine UA NEGATIVE (NEGATIVE); Nitrite Urine UA NEGATIVE (Negative); Occult Blood Urine UA NEGATIVE (Negative); Protein Urine UA NEGATIVE (Negative); Specific Gravity Urine UA 1.015 (1.000-1.035); pH Urine UA 5.5 (4.5-8.0)
[2023-04-24 13:05] LABS: Ur Creatinine Normal (Normal); Ur Specific Gravity Normal (Normal); Urine Tetrahydrocannabinol Positive (Negative); Urine pH Normal (Normal)
[2023-04-24 13:06] LABS: UR Morphine/Opiate cutoff 300 Negative (Negative); Urine Amphetamines Negative (Negative); Urine Barbiturates Positive (Negative); Urine Benzodiazepines Negative (Negative); Urine Cocaine Negative (Negative); Urine MDMA Negative (Negative); Urine Methadone Negative (Negative); Urine Methamphetamines Negative (Negative); Urine Oxycodone Negative (Negative); Urine Phencyclidine Negative (Negative); Urine Tricyclic Antidepressant Negative (Negative)
--- NOTE | 2023-04-24 13:08 | PM.HP.1 ---
History of Present Illness History of Present Illness Date Patient Seen: 04/24/23 Time Patient Seen: 14:46 Chief complaint: Weakness, Lightheaded Narrative: The patient is a 67-year-old male who presented with dyspnea on exertion today as well as generalized weakness. He has a history of alcohol dependence drinking 9 beers a day. He eats very rarely. He also uses marijuana on a regular basis. The patient was found to be hyponatremic in the emergency department and the request for admission was based on this. The patient does have fluctuating sodium values in the past. He denies history of withdrawal but then again states he has had seizures in the past. He is on chronic Dilantin. His dyspnea with exertion is new. She denies any chest pain. He also denies orthopnea, or leg edema. He does have pain, swelling and inability to move his left arm since falling several weeks ago and injury in the arm. He can not really move the arm at the elbow or shoulder and has pain and swelling from beneath the shoulder down to the upper aspect of the forearm. He denies numbness, or weakness. No other injuries were reported. He denies abdominal pain, does have no complaints of nausea, diarrhea or blood per rectum. He also denies any urinary symptoms. He takes no illicit drugs other than what has been mentioned. FORMERLY [facility] Medical History Left elbow fracture Broken neck Multiple falls Cervical spondylosis with myelopathy Marijuana dependence Osteoarthritis Memory loss Osteoarthrosis Epilepsy, unspecified, not intractable, without status epilepticus Alcohol dependence, uncomplicated Surgical History History of neck surgery History of back surgery H/O foot surgery H/O thumb surgery History of esophagogastroduodenoscopy (EGD) History of colonoscopy Family History Father Cancer Aneurysm Mother Cancer Social History marital status: unknown household members: none lives independently: Yes housing: other ([facility]) Smoking Status: Current every day smoker alcohol intake: current Meds Home Medications and Allergies Home Medications Medication Instructions Recorded Confirmed Type phenytoin sodium extended 100 mg 100 mg PO DAILY 04/24/23 04/24/23 History capsule (Dilantin Extended) phenytoin sodium extended 100 mg 200 mg PO 1200,2100 04/24/23 04/24/23 History capsule (Dilantin Extended) Allergies Allergy/AdvReac Type Severity Reaction Status Date / Time meperidine [MEPERIDINE] AdvReac Unknown Vomiting Verified 03/13/23 09:32 Review of Systems Review of Systems Narrative: All else reviewed and otherwise unremarkable except as noted in the history and physical. Exam Vital Signs (past 8 hours): - 04/24/23 09:50 04/24/23 09:52 04/24/23 09:52 Temperature Pulse Rate 95 H 93 H Respiratory Rate 18 Blood Pressure 165/107 H Pulse Oximetry 95 99 Oxygen Delivery Method Nasal Cannula Oxygen Flow Rate 2 04/24/23 10:00 04/24/23 10:02 04/24/23 10:30 Temperature 98.6 F Pulse Rate 90 100 H 93 H Respiratory Rate 21 18 22 Blood Pressure 165/107 H Pulse Oximetry 100 99 100 Oxygen Delivery Method Nasal Cannula Oxygen Flow Rate 2 04/24/23 11:00 04/24/23 11:14 04/24/23 11:14 Temperature Pulse Rate 89 88 Respiratory Rate 25 H 25 H Blood Pressure 154/95 H Pulse Oximetry 100 100 Oxygen Delivery Method Oxygen Flow Rate 04/24/23 11:30 04/24/23 11:31 04/24/23 11:31 Temperature Pulse Rate 92 H 90 Respiratory Rate 27 H 20 Blood Pressure 133/87 Pulse Oximetry 100 100 Oxygen Delivery Method Oxygen Flow Rate 04/24/23 12:00 04/24/23 12:00 Temperature Pulse Rate 84 Respiratory Rate 15 Blood Pressure 172/90 H Pulse Oximetry 100 Oxygen Delivery Method Oxygen Flow Rate Oxygen Delivery Method Nasal Cannula Oxygen Flow Rate 2 Narrative Exam Narrative: NAD, alert and oriented, fluent speech, mauro chronically ill and unkempt in appearance. M. Normocephalic skull, EOMI, anicteric sclera, symmetric pupils. Oropharynx unremarkable, no droop. Neck supple, midline trachea, no adenopathy. Lungs clear, normal rate and effort. Heart regular, no murmur gallop or rub. Abdomen is soft, non distended and non tender. Extremities are free of edema. Left upper extremity is in flexion and has evidence of chronic swelling. He is some tenderness in the arm beneath the humeral head. He is limited ability to extend at the elbow. There is a note of multiple surgeries with limited extension of the elbow in his past medical history. Skin is free of rash or lesions. Joints are otherwise not swollen or deformed. Judgment appears to be abnormal. Objective Imaging Chest x-ray: Radiologist's impression: No acute cardiopulmonary abnormality is seen. Labs 04/24/23 10:14 04/24/23 10:14 Labs: Laboratory Results - last 24 hr 04/24/23 04/24/23 04/24/23 10:14 11:17 12:08 WBC 7.6 RBC 4.14 L Hgb 13.7 Hct 39.5 L MCV 95.5 MCH 33.1 MCHC 34.6 RDW 13.3 Plt Count 145 L Neut % (Auto) 77.1 H Lymph % (Auto) 14.1 L [place] % (Auto) 5.2 Eos % (Auto) 2.7 Baso % (Auto) 0.9 Neut # (Auto) 5800 Lymph # (Auto) 1100 [place] # (Auto) 400 Eos # (Auto) 200 Baso # (Auto) 100 PT 13.0 H INR 1.1 Sodium 124 L Potassium 3.8 Chloride 100 Carbon Dioxide 15 L BUN 5 L Creatinine 0.55 L Estimated GFR > 60 BUN/Creatinine Ratio 9.1 Glucose 109 Lactate 2.5 H Calcium 8.6 Total Bilirubin 0.9 AST 25 ALT 13 Alkaline Phosphatase 126 Troponin I < 0.012 NT-Pro-B Natriuret Pep 740 H Total Protein 6.2 L Albumin 3.0 L Globulin 3.2 Albumin/Globulin Ratio 0.9 L Urine Color Yellow Urine Appearance Clear Urine pH 5.5 Ur Specific [place] 1.015 Urine Protein Negative Urine Glucose (UA) Negative Urine Ketones Trace H Urine Occult Blood Negative Urine Nitrate Negative Urine Bilirubin Negative Urine Urobilinogen 4.0 H Ur Leukocyte Esterase Negative U Opiates 300ng/mL cut Negative Ur Oxycodone Screen Negative Urine Methadone Screen Negative Ur Barbiturates Screen Positive H U Tricyclic Antidepress Negative Ur Phencyclidine Scrn Negative Ur Amphetamines Screen Negative U Methamphetamines Scrn Negative Ur MDMA Scrn (Ecstasy) Negative U Benzodiazepines Scrn Negative Urine Cocaine Screen Negative U Marijuana (THC) Screen Positive H Urine Specific [place] Ethyl Alcohol < 10 Ur Creatinine Chlamy pneumoniae PCR Not detected Adenovirus (PCR) Not detected B.parapertussis DNA PCR Not detected Coronavirus OC43 (PCR) Not detected Coronavirus HKU1 (PCR) Not detected Coronavirus 229E (PCR) Not detected SARS-CoV-2 (PCR) Not detected Coronavirus NL63 (PCR) Not detected Human Metapneumovir PCR Not detected Influenza Type A (PCR) Not detected Influenza Type B (PCR) Not detected M. pneumoniae (PCR) Not detected Parainfluenza 1 (PCR) Not detected Parainfluenza 2 (PCR) Not detected Parainfluenza 3 (PCR) Not detected Parainfluenza 4 (PCR) Not detected RSV (PCR) Not detected Entero/Rhino (PCR) Not detected 04/24/23 04/24/23 12:08 12:29 WBC RBC Hgb Hct MCV MCH MCHC RDW Plt Count Neut % (Auto) Lymph % (Auto) [place] % (Auto) Eos % (Auto) Baso % (Auto) Neut # (Auto) Lymph # (Auto) [place] # (Auto) Eos # (Auto) Baso # (Auto) PT INR Sodium Potassium Chloride Carbon Dioxide BUN Creatinine Estimated GFR BUN/Creatinine Ratio Glucose Lactate 1.5 Calcium Total Bilirubin AST ALT Alkaline Phosphatase Troponin I NT-Pro-B Natriuret Pep Total Protein Albumin Globulin Albumin/Globulin Ratio Urine Color Urine Appearance Urine pH Normal Ur Specific [place] Urine Protein Urine Glucose (UA) Urine Ketones Urine Occult Blood Urine Nitrate Urine Bilirubin Urine Urobilinogen Ur Leukocyte Esterase U Opiates 300ng/mL cut Ur Oxycodone Screen Urine Methadone Screen Ur Barbiturates Screen U Tricyclic Antidepress Ur Phencyclidine Scrn Ur Amphetamines Screen U Methamphetamines Scrn Ur MDMA Scrn (Ecstasy) U Benzodiazepines Scrn Urine Cocaine Screen U Marijuana (THC) Screen Urine Specific [place] Normal Ethyl Alcohol Ur Creatinine Normal Chlamy pneumoniae PCR Adenovirus (PCR) B.parapertussis DNA PCR Coronavirus OC43 (PCR) Coronavirus HKU1 (PCR) Coronavirus 229E (PCR) SARS-CoV-2 (PCR) Coronavirus NL63 (PCR) Human Metapneumovir PCR Influenza Type A (PCR) Influenza Type B (PCR) M. pneumoniae (PCR) Parainfluenza 1 (PCR) Parainfluenza 2 (PCR) Parainfluenza 3 (PCR) Parainfluenza 4 (PCR) RSV (PCR) Entero/Rhino (PCR) Assessment & Plan Assessment & Plan narrative: 1. Dyspnea on exertion, present on admission and active. 2. Alcohol dependency and at risk for withdrawal, present on admission and active. 3. Hyponatremia which is likely related to solute deficiency, present on admission and active. 4. Left arm pain and swelling with a history of recent trauma and chronic surgeries with limited extension, present on admission and active. 5. Seizure disorder on chronic Dilantin, present on admission and active. 6. Severe protein caloric malnutrition, present on admission and active. Plan: -[facility] protocol -CT pulmonary angiogram of the chest rule out PE. -vitamin repletion -saline for solute repletion and monitor sodium. -left arm x-rays. -resume chronic Dilantin. Patient lives alone, is DNR, and has no family in the area or proxy for healthcare. Time Spent With Patient Time with patient: 30 to 49 minutes with 50% spent counseling/coordinating care Quality MIPS - Admit I confirm the patient?s Advance Care Plan is present, Code status is documented, Surrogate decision maker is in patient?s record [If Yes, STOP here]: Yes [facility] - Meds 'Current medications' to include all prescriptions, [id number] products, herbals, cannabis/cannabidiol products, and vitamin/mineral/dietary (nutritional) supplements. I have utilized all available resources to obtain, update, or review the patient?s current medications. [If Yes, STOP here]: Yes
[2023-04-24 13:32] LABS: Bacteria Urine None Seen; Culture Indicated Urine Cult Not Indicated; RBC Urine None Seen (0-5/HPF); Squamous Epithelial Cell Urine None Seen (0-5/HPF); Urine Volume 10mL (spun); WBC Urine None Seen (0-5/HPF)
--- NOTE | 2023-04-24 13:48 | DI.CT.S_ITS ---
PROCEDURE: CT ANGIO CHEST PE PROTOCOL INDICATIONS: dyspnea TECHNIQUE: After the administration of intravenous contrast, 2 mm thick sections acquired from the pulmonary apices to the posterior costophrenic angles. 3-dimensional maximum intensity projection (MIP) coronal and sagittal reformats were then acquired through the thorax. For radiation dose reduction, the following was used: automated exposure control, adjustment of mA and/or kV according to patient size. COMPARISON: [facility], CT, CT CHEST ABD PEL W CON, 01/07/2022, 11:05. FINDINGS: Image quality: Diagnostic. Pulmonary arteries: Pulmonary arteries are normal in size, and demonstrate no intraluminal filling defects to suggest central pulmonary embolism. Lower Neck: No enlarged lymph nodes. Thyroid: No thyroid nodules which require sonographic follow up, per consensus guidelines. Axillae: No enlarged lymph nodes. Chest Wall: Unremarkable. Bones: Unremarkable. Lungs and Pleura: No pneumothorax or pleural effusions. There are bilateral patchy interstitial infiltrates in a somewhat geographic distribution period findings may potentially represent viral pneumonitis. Consider COVID-19 pneumonia. Heart: Heart size is normal. No pericardial effusion. Severe coronary artery calcifications. Thoracic Vessels: No aortic aneurysm. Mediastinum and Maddy: No enlarged lymph nodes. Prominent mediastinal lipomatosis. Esophagus: No wall thickening. No hiatal hernia. Upper Abdomen: Visualized upper abdomen solid organs and bowel loops appear normal. IMPRESSION: 1. No acute pulmonary emboli. 2. Patchy bilateral interstitial infiltrates in a somewhat geographic configuration. Findings suggest possible viral pneumonitis. Consider COVID-19 pneumonia. 3. Severe coronary artery calcifications. 4. Incidental note made of mediastinal lipomatosis. Comment: Findings were discussed with Dr. Azar at the time of study dictation. Dictated by: Diego Ring M.D. on 04/24/2023 at 15:16 Approved by: Diego Ring M.D. on 04/24/2023 at 16:18
--- NOTE | 2023-04-24 13:50 | DI.RAD.S_ITS ---
PROCEDURE: XR ELBOW LT MIN 3V INDICATIONS: PAIN TECHNIQUE: 4 views of the elbow were acquired. COMPARISON: None. FINDINGS: Bones: No fractures or dislocations. No suspicious bony lesions. Severe elbow joint space narrowing with periarticular osteophyte formation. Olecranon spurring. Left humerus cerclage wires. Soft tissues: No elbow joint effusion. No suspicious soft tissue calcifications. Punctate radiodensities seen within the soft tissues upper and mid forearm. Vascular calcifications indicate atherosclerosis. IMPRESSION: 1. Severe elbow joint degeneration which limits evaluation for subtle nondisplaced fractures. If fracture is suspected, CT or MRI could be performed for further assessment. 2. Scattered soft tissue punctate radiodensities and foreign bodies cannot be excluded. Dictated by: Christopher ORTIZ Interpreted: Josh Vang MD on 04/24/2023 at 14:58 Approved by: Josh Vang M.D. on 04/24/2023 at 20:42
--- NOTE | 2023-04-24 13:51 | DI.RAD.S_ITS ---
PROCEDURE: XR SHOULDER LT MIN 2V INDICATIONS: PAIN TECHNIQUE: 2 views of the shoulder were acquired. COMPARISON: [facility], CR, XR SHOULDER LT MIN 2V, 03/05/2023, 14:07. [facility], CR, XR SHOULDER LT MIN 2V, 02/12/2023, 14:16. FINDINGS: Bones: Similar impacted humeral neck fracture, without significant interval healing. Soft tissues: No suspicious soft tissue calcifications. IMPRESSION: Similar impacted humeral neck fracture, without significant interval healing. Dictated by: Adilson Gary M.D. on 04/24/2023 at 15:09 Approved by: Adilson Gary M.D. on 04/24/2023 at 15:09
[2023-04-24] MEDS: HEPARIN 5,000 UNIT/ML VIAL 5000 UNIT SUBCUT ×2 (14:08→20:34)
[2023-04-24] MEDS: FOLIC ACID 1 MG TABLET PO (14:09)
[2023-04-24] MEDS: MULTIVITAMIN 1 TABLET 1 TAB PO (14:09)
[2023-04-24] MEDS: SODIUM CHLORIDE 0.45% 1,000 ML 100 ML IV ×2 (14:09→23:51)
[2023-04-24] MEDS: THIAMINE 100 MG TABLET PO (14:09)
[2023-04-24] MEDS: cloNIDine 0.1 MG TABLET PO (14:09)
[2023-04-24] MEDS: AMLODIPINE 5 MG TABLET PO (14:09)
[2023-04-24 14:11] LABS: MRSA (Nasal) PCR Not Detected (Not Detect)
[2023-04-24] MEDS: HYDRALAZINE 20 MG/ML VIAL 5 MG IV (14:15)
[2023-04-24] MEDS: ONDANSETRON 4 MG/2 ML INJ IV (14:48)
[2023-04-24] MEDS: PHENYTOIN ER 100 MG CAPSULE 200 MG PO (15:23)
[2023-04-24 15:49] LABS: Sodium Urine Random 22 mmol/L (30-90)
--- NOTE | 2023-04-24 16:39 | PC.NURSE ---
Admit Note Patient to room 228 from ER at 1240 via stretcher, able to walk to bed 1 person min assist. Alert and oriented x3. Very short of breath with any exertion, pt takes a long time to recover, on 2L NC with SpO2 100%. Denies cough. Pain to left shoulder reported, especially with movement. Pt reports fracture to left arm weeks ago and that it isn't healing right. Left arm is swollen and discolored (dark purple/red), skin is tight to the touch, palpable pulse. Pt reports numbness to fingers from time to time. Able to move fingers. BP in the 200s systolic. Pt reports drinking [address] Azar notified of pt's arm, shortness of breath, etoh history, and elevated BP. Orders received, see emar and imaging. Pt with poor appetite. Oriented to room and to bed/tv/call light controls. Call light within reach, bed alarm on for safety. Cell phone at bedside. Shoes, clothing, keys, wallet, bracelet, and life alert type button in room. Declines to lock up valuables.
[2023-04-24] MEDS: cefTRIAXone 1,000 MG in SODIUM CHLORIDE 0.9% 100 ML 200 MG IV (18:43)
[2023-04-24 18:53] LABS: BUN Creatinine Ratio 11.8 (6-22); Blood Urea Nitrogen 6 mg/dL (9-20); Calcium 7.5 mg/dL (8.4-10.2); Carbon Dioxide 18 mmol/L (22-32); Chloride 98 mmol/L (98-107); Estimated Glomerular Filt Rate > 60 mL/min (>60); Glucose 100 mg/dL (80-110); HEMOLYSIS < 15 (0-50); Potassium 3.7 mmol/L (3.4-5.1); Sodium 122 mmol/L (137-145)
[2023-04-24] MEDS: AZITHROMYCIN 500 MG in DEXTROSE 5% IN WATER 250 ML 250 MG IV (19:13)
[2023-04-25 00:29] VITALS: BP 112/76; PULSE 80; O2SAT 98
[2023-04-25 00:30] VITALS: PULSE 80; O2SAT 99
[2023-04-25 00:34] VITALS: BP 112/76; PULSE 79; RESP 20; TEMP 36.3; O2SAT 100
[2023-04-25 04:57] VITALS: BP 145/86; PULSE 82; RESP 20; TEMP 36.4; O2SAT 99
[2023-04-25 06:02] LABS: BUN Creatinine Ratio 9.6 (6-22); Blood Urea Nitrogen 5 mg/dL (9-20); Carbon Dioxide 22 mmol/L (22-32); Chloride 102 mmol/L (98-107); Estimated Glomerular Filt Rate > 60 mL/min (>60); Glucose 85 mg/dL (80-110); HEMOLYSIS < 15 (0-50); Potassium 3.6 mmol/L (3.4-5.1); Sodium 127 mmol/L (137-145)
--- NOTE | 2023-04-25 06:27 | PC.NURSE ---
H[employer] Beauty [employer] Manager Note-Patient is A/Ox3, forgetful of date, [place], CIWA 0-1. Uses call light for assist into BR. VSS. Pain to LUE, declines analgesic, elevated on pillow.
--- NOTE | 2023-04-25 07:48 | PM.PN.1 ---
Subjective Subjective Interval history: He feels a little bit better today. He was primarily weak yesterday. His sodium is being corrected with saline. He has left elbow and shoulder issues which all appear to be chronic. This includes a shoulder fracture and severely degenerated and largely immobile left elbow. He notes he has been given to slings in the past but was told to stop wearing them by home health physical therapist. He denies any symptoms of withdrawal including hallucinations, vomiting, or shakiness. Exam Vital Signs (past 8 hours): - 04/25/23 00:29 04/25/23 00:29 04/25/23 00:30 Temperature Pulse Rate 80 80 Respiratory Rate Blood Pressure 112/76 Pulse Oximetry 98 99 Oxygen Flow Rate 04/25/23 00:34 04/25/23 04:57 Temperature 97.3 F L 97.5 F L Pulse Rate 79 82 Respiratory Rate 20 20 Blood Pressure 112/76 145/86 H Pulse Oximetry 100 99 Oxygen Flow Rate 1 2 Oxygen Delivery Method Nasal Cannula Oxygen Flow Rate 2 Narrative Exam Narrative: NAD, alert and oriented. Fluent speech. Lungs are clear, normal rate and effort. Heart is regular, no murmur gallop or rub. Abdomen is soft, non distended. Extremities are free of edema. Left arm is chronically swollen and is stuck and contracted flexion at the elbow. Objective Imaging Shoulder and elbow x-rays:: Radiologist's impression: Elbow: 1. Severe elbow joint degeneration which limits evaluation for subtle nondisplaced fractures. If fracture is suspected, CT or MRI could be performed for further assessment. 2. Scattered soft tissue punctate radiodensities and foreign bodies cannot be excluded. Shoulder: Similar impacted humeral neck fracture, without significant interval healing. Labs 04/24/23 10:14 04/25/23 04:25 Labs: Laboratory Results - last 24 hr 04/24/23 04/24/23 04/24/23 10:14 11:17 12:08 WBC 7.6 RBC 4.14 L Hgb 13.7 Hct 39.5 L MCV 95.5 MCH 33.1 MCHC 34.6 RDW 13.3 Plt Count 145 L Neut % (Auto) 77.1 H Lymph % (Auto) 14.1 L [place] % (Auto) 5.2 Eos % (Auto) 2.7 Baso % (Auto) 0.9 Neut # (Auto) 5800 Lymph # (Auto) 1100 [place] # (Auto) 400 Eos # (Auto) 200 Baso # (Auto) 100 PT 13.0 H INR 1.1 Sodium 124 L Potassium 3.8 Chloride 100 Carbon Dioxide 15 L BUN 5 L Creatinine 0.55 L Estimated GFR > 60 BUN/Creatinine Ratio 9.1 Glucose 109 Lactate 2.5 H Calcium 8.6 Total Bilirubin 0.9 AST 25 ALT 13 Alkaline Phosphatase 126 Troponin I < 0.012 NT-Pro-B Natriuret Pep 740 H Total Protein 6.2 L Albumin 3.0 L Globulin 3.2 Albumin/Globulin Ratio 0.9 L Urine Color Yellow Urine Appearance Clear Urine pH 5.5 Ur Specific [place] 1.015 Urine Protein Negative Urine Glucose (UA) Negative Urine Ketones Trace H Urine Occult Blood Negative Urine Nitrate Negative Urine Bilirubin Negative Urine Urobilinogen 4.0 H Ur Leukocyte Esterase Negative Urine RBC None seen Urine WBC None seen Ur Squamous Epith Cells None seen Urine Bacteria None seen Ur Culture Indicated? Cult not indicated Vol Urine Centrifuged 10ml (spun) Ur Random Sodium 22 L Nasal Screen MRSA (PCR) U Opiates 300ng/mL cut Negative Ur Oxycodone Screen Negative Urine Methadone Screen Negative Ur Barbiturates Screen Positive H U Tricyclic Antidepress Negative Ur Phencyclidine Scrn Negative Ur Amphetamines Screen Negative U Methamphetamines Scrn Negative Ur MDMA Scrn (Ecstasy) Negative U Benzodiazepines Scrn Negative Urine Cocaine Screen Negative U Marijuana (THC) Screen Positive H Urine Specific [place] Ethyl Alcohol < 10 Ur Creatinine Chlamy pneumoniae PCR Not detected Adenovirus (PCR) Not detected B.parapertussis DNA PCR Not detected Coronavirus OC43 (PCR) Not detected Coronavirus HKU1 (PCR) Not detected Coronavirus 229E (PCR) Not detected SARS-CoV-2 (PCR) Not detected Coronavirus NL63 (PCR) Not detected Human Metapneumovir PCR Not detected Influenza Type A (PCR) Not detected Influenza Type B (PCR) Not detected M. pneumoniae (PCR) Not detected Parainfluenza 1 (PCR) Not detected Parainfluenza 2 (PCR) Not detected Parainfluenza 3 (PCR) Not detected Parainfluenza 4 (PCR) Not detected RSV (PCR) Not detected Entero/Rhino (PCR) Not detected 04/24/23 04/24/23 04/24/23 12:08 12:29 12:55 WBC RBC Hgb Hct MCV MCH MCHC RDW Plt Count Neut % (Auto) Lymph % (Auto) [place] % (Auto) Eos % (Auto) Baso % (Auto) Neut # (Auto) Lymph # (Auto) [place] # (Auto) Eos # (Auto) Baso # (Auto) PT INR Sodium Potassium Chloride Carbon Dioxide BUN Creatinine Estimated GFR BUN/Creatinine Ratio Glucose Lactate 1.5 Calcium Total Bilirubin AST ALT Alkaline Phosphatase Troponin I NT-Pro-B Natriuret Pep Total Protein Albumin Globulin Albumin/Globulin Ratio Urine Color Urine Appearance Urine pH Normal Ur Specific [place] Urine Protein Urine Glucose (UA) Urine Ketones Urine Occult Blood Urine Nitrate Urine Bilirubin Urine Urobilinogen Ur Leukocyte Esterase Urine RBC Urine WBC Ur Squamous Epith Cells Urine Bacteria Ur Culture Indicated? Vol Urine Centrifuged Ur Random Sodium Nasal Screen MRSA (PCR) Not detected U Opiates 300ng/mL cut Ur Oxycodone Screen Urine Methadone Screen Ur Barbiturates Screen U Tricyclic Antidepress Ur Phencyclidine Scrn Ur Amphetamines Screen U Methamphetamines Scrn Ur MDMA Scrn (Ecstasy) U Benzodiazepines Scrn Urine Cocaine Screen U Marijuana (THC) Screen Urine Specific [place] Normal Ethyl Alcohol Ur Creatinine Normal Chlamy pneumoniae PCR Adenovirus (PCR) B.parapertussis DNA PCR Coronavirus OC43 (PCR) Coronavirus HKU1 (PCR) Coronavirus 229E (PCR) SARS-CoV-2 (PCR) Coronavirus NL63 (PCR) Human Metapneumovir PCR Influenza Type A (PCR) Influenza Type B (PCR) M. pneumoniae (PCR) Parainfluenza 1 (PCR) Parainfluenza 2 (PCR) Parainfluenza 3 (PCR) Parainfluenza 4 (PCR) RSV (PCR) Entero/Rhino (PCR) 04/24/23 04/25/23 18:13 04:25 WBC RBC Hgb Hct MCV MCH MCHC RDW Plt Count Neut % (Auto) Lymph % (Auto) [place] % (Auto) Eos % (Auto) Baso % (Auto) Neut # (Auto) Lymph # (Auto) [place] # (Auto) Eos # (Auto) Baso # (Auto) PT INR Sodium 122 L 127 L Potassium 3.7 3.6 Chloride 98 102 Carbon Dioxide 18 L 22 BUN 6 L 5 L Creatinine 0.51 L 0.52 L Estimated GFR > 60 > 60 BUN/Creatinine Ratio 11.8 9.6 Glucose 100 85 Lactate Calcium 7.5 L 8.0 L Total Bilirubin AST ALT Alkaline Phosphatase Troponin I NT-Pro-B Natriuret Pep Total Protein Albumin Globulin Albumin/Globulin Ratio Urine Color Urine Appearance Urine pH Ur Specific [place] Urine Protein Urine Glucose (UA) Urine Ketones Urine Occult Blood Urine Nitrate Urine Bilirubin Urine Urobilinogen Ur Leukocyte Esterase Urine RBC Urine WBC Ur Squamous Epith Cells Urine Bacteria Ur Culture Indicated? Vol Urine Centrifuged Ur Random Sodium Nasal Screen MRSA (PCR) U Opiates 300ng/mL cut Ur Oxycodone Screen Urine Methadone Screen Ur Barbiturates Screen U Tricyclic Antidepress Ur Phencyclidine Scrn Ur Amphetamines Screen U Methamphetamines Scrn Ur MDMA Scrn (Ecstasy) U Benzodiazepines Scrn Urine Cocaine Screen U Marijuana (THC) Screen Urine Specific [place] Ethyl Alcohol Ur Creatinine Chlamy pneumoniae PCR Adenovirus (PCR) B.parapertussis DNA PCR Coronavirus OC43 (PCR) Coronavirus HKU1 (PCR) Coronavirus 229E (PCR) SARS-CoV-2 (PCR) Coronavirus NL63 (PCR) Human Metapneumovir PCR Influenza Type A (PCR) Influenza Type B (PCR) M. pneumoniae (PCR) Parainfluenza 1 (PCR) Parainfluenza 2 (PCR) Parainfluenza 3 (PCR) Parainfluenza 4 (PCR) RSV (PCR) Entero/Rhino (PCR) [facility] Medical History Left elbow fracture Broken neck Multiple falls Cervical spondylosis with myelopathy Marijuana dependence Osteoarthritis Memory loss Osteoarthrosis Epilepsy, unspecified, not intractable, without status epilepticus Alcohol dependence, uncomplicated Surgical History History of neck surgery History of back surgery H/O foot surgery H/O thumb surgery History of esophagogastroduodenoscopy (EGD) History of colonoscopy Family History Father Cancer Aneurysm Mother Cancer Social History marital status: unknown household members: none lives independently: Yes housing: other ([facility]) Smoking Status: Current every day smoker alcohol intake: current Assessment & Plan Assessment & Plan narrative: 1. Dyspnea on exertion, present on admission and active. Normal CXR. Follow clinically. 2. Alcohol dependency and at risk for withdrawal, present on admission and stable. 3. Hyponatremia which is likely related to solute deficiency (Beer potomania), present on admission and active. 4. Left arm pain and swelling with a history of recent trauma and chronic surgeries with limited extension, present on admission and active. Largly chronic injuries. 5. Seizure disorder on chronic Dilantin, present on admission and active. 6. Severe protein caloric malnutrition, present on admission and active. Plan: -CIWA protocol, continue. No real evidence of withdrawal at this point. -CT pulmonary angiogram of the chest rule out PE. -vitamin repletion -saline for solute repletion and monitor sodium (saline infusion). Continue. -resume chronic Dilantin. -PT eval Patient lives alone, is DNR, and has no family in the area or proxy for healthcare. Quality VTE Deep Vein Thrombosis/Pulmonary Embolism Present on Admission: No
[2023-04-25 08:00] VITALS: BP 162/94; PULSE 75; RESP 19; TEMP 36.8; O2SAT 100
[2023-04-25] MEDS: HEPARIN 5,000 UNIT/ML VIAL 5000 UNIT SUBCUT (09:29)
[2023-04-25] MEDS: FOLIC ACID 1 MG TABLET PO (09:29)
[2023-04-25] MEDS: PHENYTOIN ER 100 MG CAPSULE PO (09:29)
[2023-04-25] MEDS: THIAMINE 100 MG TABLET PO (09:29)
[2023-04-25] MEDS: MULTIVITAMIN 1 TABLET 1 TAB PO (09:29)
[2023-04-25] MEDS: AMLODIPINE 5 MG TABLET PO (09:29)
--- NOTE | 2023-04-25 11:35 | PT.IIE ---
Surgical History (Last Reviewed 04/24/23 @ 14:50 by Federico Azar MD) H/O foot surgery H/O thumb surgery History of back surgery History of colonoscopy History of esophagogastroduodenoscopy (EGD) History of neck surgery Medical History (Last Reviewed 04/24/23 @ 14:50 by Federico Azar MD) Alcohol dependence, uncomplicated Broken neck Cervical spondylosis with myelopathy Epilepsy, unspecified, not intractable, without status epilepticus Left elbow fracture Marijuana dependence Memory loss Multiple falls Osteoarthritis Osteoarthrosis Physical Therapy Inpatient Evaluation/Re-Eval M1 PT/OT-IP Prior Functional Status Start: 04/25/23 14:05 Freq: NEEDED Status: Active Protocol: Document 04/25/23 11:35 AB (Rec: 04/25/23 14:16 AB [id number]) Medical Review Prior Functional Status Medical History Reviewed Yes Communication able to make needs known Mobility and Gait pt stated that he was independent with all mobilities and ambulation without AD Social History Household Members none Living Arrangements Apartment/Condo Number of Floors (Floors) One Floor Number of Stairs To Enter/Railing? pt lives in the a 3rd floor apartment with access to an elevator Home Environment Standard Height Toilet,Walk in Shower,Elevator Home Equipment Front Wheel Walker,Straight Cane,Grab Bars Near Toilet, Grab Bars In Shower M2 PT-IP Current Condition Start: 04/25/23 14:05 Freq: NEEDED Status: Active Protocol: Document 04/25/23 11:35 AB (Rec: 04/25/23 14:16 AB [id number]) Physical Therapy Current Condition Current Condition Evaluation Date 04/25/23 Treatment Diagnosis hyponatremia; difficulty in walking Onset Date 04/24/23 M3 PT-IP Subjective Start: 04/25/23 14:05 Freq: NEEDED Status: Active Protocol: Document 04/25/23 11:35 AB (Rec: 04/25/23 14:16 AB [id number]) Subjective Physical Therapy Visit Type Type Initial Evaluation Visit Start Time 11:35 Visit Stop Time 12:05 Notes PT eval received and EMR reviewed. pt with L shoulder humeral neck fx but no guidelines and protocols mentioned by hospitalist. unable to touch base with hospitalist prior to eval. Assumed NWB and no ROM on L shoulder at this time and will f/u with hospitalist. nurse aware. Able to talked with hospitalist after PT eval was completed and agreed with NWB on L shoulder and no ROM for L shoulder. informed nurse. Number of BRASS CUTTER Visits 0 Physical Therapy Visit Comments Patient Comments agreeable to do PT M4 PT-IP Mobility and Gait Start: 04/25/23 14:05 Freq: NEEDED Status: Active Protocol: Document 04/25/23 11:35 AB (Rec: 04/25/23 14:16 AB [id number]) PT-Bed Mobility Assessment Supine to Sit Supine to Sit Independent Sit to Supine Sit to Supine Independent PT-Transfer Assessment Sit to and From Stand Sit to and from Stand Standby Assistance Equipment Transfer Assistive Device Gait Belt Orthotic/Prosthetic Devices or Brace: No Transfers Transfer Destination Chair Transfer Technique ambulated Transfer Ability Level of Assist Standby Assistance Comments Mobility Comments pt supine in bed and agreeable to do PT. pt stated that he broke his L shoulder last apr 08. stated that he was using a sling before but somebody from where he lives said that he does not need it and he just not use the sling. informed pt regarding NWB on L shoulder and no ROM and pt understood. obtained PLOF and home set up from pt. pt completed supine to sit SBA . completed sit to stand from EOB SBA and ambulated in room ~ 40 ft without AD SBA. presents with slight antalgic gait but without LOB. pt agreed to sit up on the chair. positioned pt on the chair. call light and table placed within reach. chair alarm on. Gait Assessment Gait Gait Assistance Required: Standby Assistance Distance (Feet) 40 Able to Maintain Weight Bearing Status Yes During Gait Assistive Devices Assistive Device None,Gait Belt Orthotic/Prosthetic Devices or Brace: No Gait Deviations General Gait Pattern Antalgic Factors Limiting Gait Function Factors Limiting Gait Function Poor Balance,Poor Safety Awareness PT-Balance Assessment Sitting Balance and Reactions Static Sitting Balance Ability Normal Dynamic Sitting Balance Ability Normal Standing Balance and Reactions Static Standing Balance Ability Good Dynamic Standing Balance Ability Good Device Used without AD M5 PT-IP Objective Assessments Start: 04/25/23 14:05 Freq: NEEDED Status: Active Protocol: Document 04/25/23 11:35 AB (Rec: 04/25/23 14:16 AB [id number]) Orientation Orientation/Cognition Level of Alertness Alert Orientation Name,Place,Situation Safety Awareness Decreased Safety Awareness Memory Description No Deficits Noted Gross Range of Motion Lower Extremity ROM Assessment Within Functional Limits Strength Lower Extremity Strength Assessment Within Functional Limits Muscle Tone Muscle Tone WNL Yes M6 PT-IP Treatment Start: 04/25/23 14:05 Freq: NEEDED Status: Active Protocol: Document 04/25/23 11:35 AB (Rec: 04/25/23 14:16 AB [id number]) Physical Therapy Treatment Education Education Provided Precautions,Weight Bearing Status,Safety M7 PT-IP Assessment and Plan Start: 04/25/23 14:05 Freq: NEEDED Status: Active Protocol: Document 04/25/23 11:35 AB (Rec: 04/25/23 14:16 AB [id number]) PT Summary Assessment and Plan Potential Rehabilitation Potential Good Status of Condition at Evaluation Stable Summary Impairments Pain,ROM,Strength,Balance, Coordination,Sensation,Tone, Cognition,Bed Mobility, Transfers,Gait,Activity Tolerance Assessment Summary pt is a 67 y/o M who presented to the ED with c/o weakness. pt admitted for acute hyponatremia. pt also has alcohol dependence. pt able to completed bed mobility independent, transfers and ambulate in room without AD SBA. pt may go home when medically stable. Goals Transfer Goal Independent Gait Goal Independent Gait Distance 300 Days to Meet Goals 3 Frequency of Treatment Frequency Of Treatment Once a Day Treatment Plan Physical Therapy Treatment Plan Bed Mobility Training,Transfer Training,Gait Training, Therapeutic Exercise,Balance Retraining,Discharge Planning, Hot or Cold Pack,Neuromuscular Re-ed,Coordination Retraining Weight Bearing Status Weight Bearing Status Non-Weight Bearing Allowed Weight Bearing Amount (enter % LUE NWB or #) (%) Recommendations To Nursing Amount of Assist Needed Independent Discharge Recommendations PT Discharge Recommendations Home with Assistance Transportation Needs at Discharge Private Vehicle
[2023-04-25 12:00] VITALS: BP 115/77; PULSE 89; RESP 20; TEMP 36.6; O2SAT 98
[2023-04-25] MEDS: PHENYTOIN ER 100 MG CAPSULE 200 MG PO (12:26)
--- NOTE | 2023-04-25 12:52 | PM.DS.1 ---
History of Present Illness History of Present Illness Chief complaint: Weakness, Lightheaded Narrative: The patient is a 67-year-old male who presented with dyspnea on exertion today as well as generalized weakness. He has a history of alcohol dependence drinking 9 beers a day. He eats very rarely. He also uses marijuana on a regular basis. The patient was found to be hyponatremic in the emergency department and the request for admission was based on this. The patient does have fluctuating sodium values in the past. He denies history of withdrawal but then again states he has had seizures in the past. He is on chronic Dilantin. His dyspnea with exertion is new. She denies any chest pain. He also denies orthopnea, or leg edema. He does have pain, swelling and inability to move his left arm since falling several weeks ago and injury in the arm. He can not really move the arm at the elbow or shoulder and has pain and swelling from beneath the shoulder down to the upper aspect of the forearm. He denies numbness, or weakness. No other injuries were reported. He denies abdominal pain, does have no complaints of nausea, diarrhea or blood per rectum. He also denies any urinary symptoms. He takes no illicit drugs other than what has been mentioned. Discharge Providers Provider Date of admission: 04/24/23 11:57 Discharge Date: 04/25/23 Primary care physician: Noris Shipley MD Consults: 04/24/23 10:09 Consult to [employer] APPRENTICE - Environmental Science Technician Stat Comment: 04/24/23 13:07 Consult to Physical Therapy Evaluate & Treat Comment: Physician Instructions: Evaluate and Treat 04/24/23 13:49 Consult to Dietitian, Adult Routine Comment: Reason For Exam: alchohol depend Discharge provider: Federico Azar MD Summary Hospital Course Discharge Diagnosis: 1. Dyspnea on exertion, present on admission and active. Normal CXR. Follow clinically. 2. Alcohol dependency and at risk for withdrawal, present on admission and stable. 3. Hyponatremia which is likely related to solute deficiency (Beer potomania), present on admission and active. 4. Left arm pain and swelling with a history of recent trauma and chronic surgeries with limited extension, present on admission and active. Largly chronic injuries. 5. Seizure disorder on chronic Dilantin, present on admission and active. 6. Severe protein caloric malnutrition, present on admission and active. Hospital Course: He was admitted for weakness and low-sodium. He was treated with saline and had improvement. He has subacute left shoulder fracture and a chronically contracted left elbow. He would noted some dyspnea on exertion and had normal chest x-ray. He has chronic protein caloric malnutrition and seizure disorder was continued unusual Dilantin doses. He was noted to be hypertensive was started on amlodipine 5 mg daily. He requested discharge on April 24 and was going to leave against medical advice but was felt to be reasonably medically stable for discharge. He will be advised to continue to work on alcohol cessation, wearing 1 of his 2 left arm slings at home, and seen his primary doctor within the next week. Status at Discharge Cognitive/behavioral status at discharge: oriented Functional status at discharge: independent ambulation Overall status at discharge: patient is back to baseline Time Spent with Patient Time spent: Greater than 30 minutes Exam Vital Signs (past 8 hours): - 04/25/23 04:57 04/25/23 08:00 04/25/23 08:00 Temperature 97.5 F L 98.3 F Pulse Rate 82 75 Respiratory Rate 20 19 Blood Pressure 145/86 H 162/94 H Pulse Oximetry 99 100 Oxygen Delivery Method Room Air Oxygen Flow Rate 2 0 Oxygen Delivery Method Room Air Oxygen Flow Rate 0 Narrative Exam Narrative: NAD, alert and oriented. Fluent speech. Lungs are clear, normal rate and effort. Heart is regular, no murmur gallop or rub. Abdomen is soft, non distended. Extremities are free of edema. Objective Imaging Chest x-ray: My impression: Clear. Radiologist's impression: No abnormality. Left arm:: Radiologist's impression: Elbow: 1. Severe elbow joint degeneration which limits evaluation for subtle nondisplaced fractures. If fracture is suspected, CT or MRI could be performed for further assessment. 2. Scattered soft tissue punctate radiodensities and foreign bodies cannot be excluded. Shoulder: Similar impacted humeral neck fracture, without significant interval healing. Labs 04/24/23 10:14 04/25/23 04:25 Labs: Laboratory Results - last 24 hr 04/24/23 04/24/23 04/24/23 12:08 12:08 12:55 Sodium Potassium Chloride Carbon Dioxide BUN Creatinine Estimated GFR BUN/Creatinine Ratio Glucose Calcium Urine Color Yellow Urine Appearance Clear Urine pH 5.5 Normal Ur Specific [place] 1.015 Urine Protein Negative Urine Glucose (UA) Negative Urine Ketones Trace H Urine Occult Blood Negative Urine Nitrate Negative Urine Bilirubin Negative Urine Urobilinogen 4.0 H Ur Leukocyte Esterase Negative Urine RBC None seen Urine WBC None seen Ur Squamous Epith Cells None seen Urine Bacteria None seen Ur Culture Indicated? Cult not indicated Vol Urine Centrifuged 10ml (spun) Ur Random Sodium 22 L Nasal Screen MRSA (PCR) Not detected U Opiates 300ng/mL cut Negative Ur Oxycodone Screen Negative Urine Methadone Screen Negative Ur Barbiturates Screen Positive H U Tricyclic Antidepress Negative Ur Phencyclidine Scrn Negative Ur Amphetamines Screen Negative U Methamphetamines Scrn Negative Ur MDMA Scrn (Ecstasy) Negative U Benzodiazepines Scrn Negative Urine Cocaine Screen Negative U Marijuana (THC) Screen Positive H Urine Specific [place] Normal Ur Creatinine Normal 04/24/23 04/25/23 18:13 04:25 Sodium 122 L 127 L Potassium 3.7 3.6 Chloride 98 102 Carbon Dioxide 18 L 22 BUN 6 L 5 L Creatinine 0.51 L 0.52 L Estimated GFR > 60 > 60 BUN/Creatinine Ratio 11.8 9.6 Glucose 100 85 Calcium 7.5 L 8.0 L Urine Color Urine Appearance Urine pH Ur Specific [place] Urine Protein Urine Glucose (UA) Urine Ketones Urine Occult Blood Urine Nitrate Urine Bilirubin Urine Urobilinogen Ur Leukocyte Esterase Urine RBC Urine WBC Ur Squamous Epith Cells Urine Bacteria Ur Culture Indicated? Vol Urine Centrifuged Ur Random Sodium Nasal Screen MRSA (PCR) U Opiates 300ng/mL cut Ur Oxycodone Screen Urine Methadone Screen Ur Barbiturates Screen U Tricyclic Antidepress Ur Phencyclidine Scrn Ur Amphetamines Screen U Methamphetamines Scrn Ur MDMA Scrn (Ecstasy) U Benzodiazepines Scrn Urine Cocaine Screen U Marijuana (THC) Screen Urine Specific [place] Ur Creatinine PFSH Medical History Left elbow fracture Broken neck Multiple falls Cervical spondylosis with myelopathy Marijuana dependence Osteoarthritis Memory loss Osteoarthrosis Epilepsy, unspecified, not intractable, without status epilepticus Alcohol dependence, uncomplicated Surgical History History of neck surgery History of back surgery H/O foot surgery H/O thumb surgery History of esophagogastroduodenoscopy (EGD) History of colonoscopy Family History Father Cancer Aneurysm Mother Cancer Social History marital status: unknown household members: none lives independently: Yes housing: other ([facility]) Smoking Status: Current every day smoker alcohol intake: current Discharge Assessment & Plan Assessment and Plan Assessment: 1. Dyspnea on exertion, present on admission and active. Normal CXR. Follow clinically. 2. Alcohol dependency and at risk for withdrawal, present on admission and stable. 3. Hyponatremia which is likely related to solute deficiency (Beer potomania), present on admission and active. 4. Left arm pain and swelling with a history of recent trauma and chronic surgeries with limited extension, present on admission and active. Largly chronic injuries. 5. Seizure disorder on chronic Dilantin, present on admission and active. 6. Severe protein caloric malnutrition, present on admission and active. Plan of Treatment: Discharge home and advised to start amlodipine 5 daily which was sent to the pharmacy. Advised follow up with primary care within a week and to use left shoulder sling until follow up. Discharge Plan Discharge Plan Patient Disposition: Home Provider Discharge Comment: Stable for discharge. Discharge orders & Medications Prescriptions: New amlodipine 5 mg tablet 5 mg PO DAILY Qty: 30 2RF Continued phenytoin sodium extended [Dilantin Extended] 100 mg Capsule 100 mg PO DAILY phenytoin sodium extended [Dilantin Extended] 100 mg Capsule 200 mg PO 1200,2100 Follow up/Referrals: Noris Shipley MD [Primary Care Provider] - Discharge Health Status Multidrug resistant organism: No MDRO Diet/Activity/Treatments Diet: Diet as Tolerated Skin/Wound/Dressing Care Report to your healthcare provider any signs of infection, such as:: chills, fever, night sweats and increased pain Visit Report/Discharge Packet Instructions: DI for Alcohol Use Disorder, DI for Hyponatremia, How to Prevent Falls Stand Alone Forms: Patient Portal/API Discharge Data Primary Care Provider: Noris Shipley Attending Provider: Federico Azar Admit Date/Time: 04/24/23 11:57 Quality VTE Deep Vein Thrombosis/Pulmonary Embolism Present on Admission: No
--- NOTE | 2023-04-25 12:57 | DIET.CONS ---
Dietary Consultation Note Admission Date: 04/24/2023 11:57 Assessment: 67 y M admitted for hyponatremia, alcohol dependency at risk for withdraw. Dietitian consulted for alcohol dependency. RDs visited pt at bedside. Pt reports no appetite and denied food and ONS at this time. Pt reports sometimes going 1-4 days without eating. Reports its been around 40 hours since last meal. Reports not eating during previous hospitalization elsewhere as well. Dietary recall: 1 meal per day, at various times: typically pizza with beer RD performed limited nutrition focused physical exam showing results of: -Moderate muscle loss in temporalis muscle -Severe muscle loss interosseous muscle Ht: 172.72 cm Wt: 64.5 kg BMI: 21.6 UBW: 75 kg per patient report Last BM: 04/24/23 (04/24/23 15:58) MNA: 12 Vaughn Score: 18 Diet: 04/24/23 Dinner Heart Healthy Diet Diet Modifications: Nutrition Percent Meal Consumed pt refused breakfast 04/25/23 08:59 Percent Meal Consumed 0% 04/24/23 18:00 Labs: RBC 4.14 X10^6/uL (4.5-5.9) L 04/24/23 10:14 Hgb 13.7 g/dL (13.5-17.5) 04/24/23 10:14 Hct 39.5 % (41-53) L 04/24/23 10:14 Creatinine 0.52 mg/dL (0.66-1.25) L 04/25/23 04:25 Lactate 1.5 mmol/L (0.7-2.1) 04/24/23 12:29 NT-Pro-B Natriuret Pep 740 pg/mL (<125) H 04/24/23 10:14 Nutrition Diagnosis: Severe chronic protein calorie malnutrition r/t reduced appetite with no oral intake as evidenced by 8% weight loss within 3 months and moderate to severe loss of muscle mass. Interventions: Provided educ on increased protein needs in response to severe weight loss/for recovery. Discussed feasible protein options for pt to carry out when discharged. Will continue to offer meals through unit host as appropriate. EER: [id number] kcals/ day (27-30 kcals/kg) 95-110 grams of protein/day (1.5-1.7 grams/kg) Monitoring/Evaluations: PO intakes, weight, f/u in 3 days Electronically Signed by: Yareli Pinto 04/25/23 12:57 Clinical Dietitian [address] [address]
--- NOTE | 2023-04-25 13:33 | CM.DPNOTE ---
DC Note Patient discharging and states he will walk back to his apt at [facility] if needed. Discussed taxi and patient says he cannot pay for that today. Taxi voucher discussed and patient appreciative. Taxi voucher form completed and signed by this [employer] for $15 mert[address] taxi, quote from [facility]. Chart review shows [facility] coverage, ideally [facility] transport should have be attempted first. Taxi voucher used this day to assist in getting patient safely from [facility] to apt, no walking needed. JW
== END 2023-04-25 13:38 | disposition home or self-care (01) ==
LOC: ED 10:11 → AC 11:57 → ICU 12:13
PROVIDERS: Admitting Provider Hospitalist; Emergency Provider Emergency Medicine; Family Provider Internal Medicine; PCP Family Medicine; Referring Provider Emergency Medicine; Visit Provider Hospitalist
DX: R06.02 Shortness of breath (principal); Z11.52 Encounter for screening for COVID-19; F17.210 Nicotine dependence, cigarettes, uncomplicated; E87.1 Hypo-osmolality and hyponatremia; E43 Unspecified severe protein-calorie malnutrition; G40.909 Epilepsy, unspecified, not intractable, without status epilepticus; F10.20 Alcohol dependence, uncomplicated; M79.622 Pain in left upper arm
CPT/HCPCS: 36415; 71045; 71275; 73030; 73070; 80048; 80053; 80305; 80320; 81001; 81003; 83605; 83880; 84300; 84484; 85025; 85610; 87633; 87797; 93005; 93010; 96361; 96365; 96366; 96367; 96372; 96375; 97161; 97530; 99285; G0378; J0360; J0696; J1644; J2405; J7050; Q9967

== ENCOUNTER 2023-09-11 09:52 | Emergency (ER) | payer MEDICARE, MEDICAID, SELFPAY ==
[2023-04-24 13:17] VITALS: BMI 21.6
[2023-09-11 09:53] VITALS: BP 190/105; PULSE 89; RESP 14; TEMP 37.4; O2SAT 98; BMI 25.8
[2023-09-11 09:57] VITALS: PULSE 97; O2SAT 98
[2023-09-11 09:58] VITALS: BP 190/105; PULSE 92; O2SAT 100
--- NOTE | 2023-09-11 10:06 | ED.FALL ---
HPI - Fall General Chief Complaint: Fall Stated Complaint: fall, R arm injury/wound Time Seen by Provider: 09/11/23 10:01 Source: patient Mode of arrival: Ambulatory History of Present Illness HPI Narrative: 67-year-old male presents for skin tear on his right arm. Had a ground level slip and fall. He was here to have his wound evaluated and possibly dressed. Denies hitting his head, denies any other injury Related Data Home Medications Medication Instructions Recorded Confirmed phenytoin sodium extended 100 mg 500 mg PO 1200,2100 09/01/23 capsule (Dilantin Extended) Previous Rx's Medication Instructions Recorded amlodipine 5 mg tablet 5 mg PO DAILY #30 tabs 04/25/23 Allergies Allergy/AdvReac Type Severity Reaction Status Date / Time meperidine [MEPERIDINE] AdvReac Unknown Vomiting Verified 09/11/23 10:00 Patient History Medical History Left elbow fracture Broken neck Multiple falls Cervical spondylosis with myelopathy Marijuana dependence Osteoarthritis Memory loss Osteoarthrosis Epilepsy, unspecified, not intractable, without status epilepticus Alcohol dependence, uncomplicated Surgical History History of neck surgery History of back surgery H/O foot surgery H/O thumb surgery History of esophagogastroduodenoscopy (EGD) History of colonoscopy Family History Father Cancer Aneurysm Mother Cancer Social History marital status: unknown household members: none lives independently: Yes housing: other ([facility]) Smoking Status: Current every day smoker alcohol intake: current Smoking Status: Current every day smoker tobacco type: cigarettes alcohol intake frequency: 3 or more drinks per day Alcohol type: beer and hard liquor Substance Use Type: marijuana Exam Initial Vital Signs Initial Vital Signs: Vital Signs Temperature 99.3 F 09/11/23 09:53 Pulse Rate 89 09/11/23 09:53 Respiratory Rate 14 09/11/23 09:53 Blood Pressure 190/105 H 09/11/23 09:53 Pulse Oximetry 98 09/11/23 09:53 Oxygen Delivery Method Room Air 09/11/23 09:53 Const: Awake, alert, no acute distress, nontoxic appearing MSK: No deformity, full range of motion, pulses equal Skin: Warm, Dry, skin tear volar right forearm - no flap remaining Neuro: AO x3, CN II-XII grossly intact, moves all extremities Course Orders Ordered: Discontinued Medications Acetaminophen (Acetaminophen 325 Mg Tablet) 975 mg PO NOW ONE Stop: 09/11/23 10:07 Last Admin: 09/11/23 10:10 Dose: 975 mg Documented By: AMBIKA Ibuprofen (Ibuprofen 400 Mg Tablet) 400 mg PO NOW ONE Stop: 09/11/23 10:07 Last Admin: 09/11/23 10:10 Dose: 400 mg Documented By: AMBIKA Vital Signs Vital signs: Vital Signs - 8 hr 09/11/23 09:53 09/11/23 09:57 09/11/23 09:58 Temperature 99.3 F Pulse Rate 89 97 H 92 H Respiratory Rate 14 Blood Pressure 190/105 H Pulse Oximetry 98 98 100 Oxygen Delivery Method Room Air 09/11/23 09:58 09/11/23 10:24 09/11/23 10:24 Temperature Pulse Rate 85 Respiratory Rate Blood Pressure 190/105 H 183/105 H Pulse Oximetry 100 Oxygen Delivery Method 09/11/23 10:25 09/11/23 10:25 Temperature Pulse Rate 85 Respiratory Rate Blood Pressure 189/94 H Pulse Oximetry 99 Oxygen Delivery Method MDM - Fall MDM Narrative Medical decision making narrative: Skin tear with avulsed skin. Cleaned and dressed by nursing staff. Not amenable to suturing. Sent home with additional bandages for dressing changes Discharge Plan Departure Patient Disposition: Home Clinical Impression: Skin tear of right forearm without complication Instructions: Minor Wounds (Alternative Therapy) Activity Restrictions/Additional Instructions: Keep your wound clean and dry. Change the dressing daily. If you notice redness, drainage, swelling please return for repeat evaluation. You may take Tylenol or ibuprofen as needed for pain. Prescriptions: No Action phenytoin sodium extended [Dilantin Extended] 100 mg capsule 500 mg PO 1200,2100 Patient Comments: 1 cap in the morning, 2 at noon and 2 at night. amlodipine 5 mg tablet 5 mg PO DAILY Qty: 30 2RF Referrals: Noris Shipley MD [Primary Care Provider] - Stand Alone Forms: Patient Portal/API
[2023-09-11] MEDS: IBUPROFEN 400 MG TABLET PO (10:10)
[2023-09-11] MEDS: ACETAMINOPHEN 325 MG TABLET 975 MG PO (10:10)
[2023-09-11 10:24] VITALS: BP 183/105; PULSE 85; O2SAT 100
[2023-09-11 10:25] VITALS: BP 189/94; PULSE 85; O2SAT 99
== END 2023-09-11 10:50 | disposition home or self-care (01) ==
PROVIDERS: Emergency Provider Emergency Medicine; Family Provider Internal Medicine; PCP Family Medicine
DX: S51.811A Laceration without foreign body of right forearm, initial encounter (principal); W01.0XXA Fall on same level from slipping, tripping and stumbling without subsequent striking against object, initial encounter
CPT/HCPCS: 99282; 99283

== ENCOUNTER 2023-10-03 15:59 | Inpatient (IN) | payer MEDICARE, MEDICAID, SELFPAY ==
[2023-04-24 13:17] VITALS: BMI 21.6
[2023-10-03] VITALS (19 sets, daily range): BP systolic 107–214; BP diastolic 70–106; PULSE 75–85; RESP 13–21; TEMP 36.9; O2SAT 99–100
--- NOTE | 2023-10-03 16:22 | EKG_ITS ---
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
--- NOTE | 2023-10-03 16:22 | DI.RAD.S_ITS ---
PROCEDURE: XR CHEST 1V INDICATIONS: chest pain TECHNIQUE: One view of the chest was acquired. COMPARISON: [facility], CR, XR CHEST 1 VIEW, 01/06/2023, 9:52. FINDINGS: Surgical changes and devices: Prior ACDF. Lungs and pleura: Lungs are clear. No pleural effusions or pneumothorax. Mediastinum: Mediastinal contours appear normal. Heart size is normal. Bones and chest wall: No suspicious bony lesions. Overlying soft tissues appear unremarkable. Chronic appearing fracture of the left humeral head. IMPRESSION: No acute cardiopulmonary abnormality is seen. Dictated by: Ronnie Cheng M.D. on 10/03/2023 at 17:39 Approved by: Ronnie Cheng M.D. on 10/03/2023 at 17:40
[2023-10-03] MEDS: ONDANSETRON 4 MG/2 ML INJ IV (16:44)
[2023-10-03 17:19] LABS: Add Manual Diff / Slide Review NO; Basophils Absolute Auto 0 /uL (0-100); Basophils Percent Auto 0.3 % (0-2); Eosinophils Absolute Auto 200 /uL (0-450); Eosinophils Percent Auto 2.9 % (2-4); Hematocrit 39.8 % (41-53); Hemoglobin 13.5 g/dL (13.5-17.5); Lymphocytes Absolute Auto 1400 /uL (1100-4500); Lymphocytes Percent Auto 22.8 % (25-40); Mean Corpuscular HGB Conc 33.8 % (30-36); Mean Corpuscular Hemoglobin 33.2 PG (26-34); Mean Corpuscular Volume 98.2 fL (80-100); Monocytes Absolute Auto 300 /uL (0-900); Monocytes Percent Auto 5.4 % (3-14); Neutrophils Absolute Auto 4200 /uL (1500-7000); Neutrophils Percent Auto 68.6 % (50-75); Platelet Count 109 X10^3/uL (150-400); Red Blood Cell Count 4.05 X10^6/uL (4.5-5.9); Red Cell Distribution Width 14.4 % (11.6-14.8); White Blood Cell Count 6.2 X10^3/uL (4.5-11.0)
[2023-10-03 17:23] LABS: INR 0.9 (0.9-1.3); Prothrombin Time 10.2 SECONDS (9.4-12.5)
[2023-10-03 17:25] LABS: PTT Partial Thromboplastin Tim 21 SECONDS (25.1-36.5)
[2023-10-03 17:45] LABS: Adenovirus Not Detected (Not Detect); B. parapertussis Not Detected (Not Detecte); Bordetella pertussis Not Detected (Not Detect); Chlamydophila pneumoniae Not Detected (Not Detect); Coronavirus 229E Not Detected (Not Detect); Coronavirus HKU1 Not Detected (Not Detect); Coronavirus NL 63 Not Detected (Not Detect); Coronavirus OC43 Not Detected (Not Detect); Human Metapneumovirus Not Detected (Not Detect); Human Rhinovirus/Enterovirus Not Detected (Not Detect); Influenza A Not Detected (Not Detect); Influenza B Not Detected (Not Detect); Mycoplasma pneumoniae Not Detected (Not Detect); Parainfluenza Virus 1 Not Detected (Not Detect); Parainfluenza Virus 2 Not Detected (Not Detect); Parainfluenza Virus 3 Not Detected (Not Detect); Parainfluenza Virus 4 Not Detected (Not Detect); Respiratory Syncytial Virus Not Detected (Not Detect); SARS- CoV-2 Not Detected (Not Detecte)
[2023-10-03 18:03] LABS: Ethanol (ETOH) 12 mg/dL
[2023-10-03 18:04] LABS: Alanine Aminotransferase 13 IU/L (<50); Albumin 3.1 g/dL (3.5-5.0); Alkaline Phosphatase 151 U/L (38-126); Aspartate Aminotransferase 30 IU/L (17-59); BUN Creatinine Ratio 10.3 (6-22); Bilirubin Total 0.6 mg/dL (0.2-1.3); Blood Urea Nitrogen 7 mg/dL (9-20); Calcium 8.5 mg/dL (8.4-10.2); Carbon Dioxide 23 mmol/L (22-32); Chloride 100 mmol/L (98-107); Creatine Kinase 34 U/L (55-170); Estimated Glomerular Filt Rate > 60 mL/min (>60); Globulin 3.1 g/dL (1.7-4.1); Glucose 97 mg/dL (80-110); HEMOLYSIS 47 (0-50); Lipase 34 U/L (23-300); Magnesium 2.2 mg/dL (1.6-2.3); Potassium 4.2 mmol/L (3.4-5.1); Sodium 127 mmol/L (137-145); Total Protein 6.2 g/dL (6.3-8.2)
[2023-10-03 18:15] LABS: NT-proBNP (BNP-Adult 18+) 489 pg/mL (<125); Troponin I < 0.012 ng/mL (0.01-0.034)
--- NOTE | 2023-10-03 18:26 | ED.RECABL ---
HPI - Recheck/Abnormal Lab/Rx General Chief Complaint: Recheck/Abnormal Lab/Rx Stated Complaint: sent by PCP, generalized weakness Time Seen by Provider: 10/03/23 17:24 Source: patient Mode of arrival: Wheelchair History of Present Illness HPI narrative: 67-year-old gentleman with a history of alcohol use to order describes drinking 9 beers daily. Seen in the emergency room on September 10 with a ground level fall and skin tear concerned that it is becoming infected, has a history of epilepsy and multiple falls with memory loss and cognitive dysfunction was seen by his family practice clinic today with complaints of dizziness and general malaise. Reportedly unable to walk or stand and was sent to the emergency department for further evaluation. Patient does not know how he actually got to the ER. He is interested in stopping drinking. Apparently friends have bottom 12 back of ?bud 0? and he ?has tried a few of them?. States that he has not had alcohol withdrawal seizures in the past. Complains of general malaise and just not feeling right Related Data Home Medications Medication Instructions Recorded Confirmed phenytoin sodium extended 100 mg 500 mg PO 1200,2100 09/01/23 10/03/23 capsule (Dilantin Extended) Previous Rx's Medication Instructions Recorded amlodipine 5 mg tablet 5 mg PO DAILY #30 tabs 04/25/23 cephalexin 500 mg capsule 500 mg PO Q8H #21 caps 10/03/23 Allergies Allergy/AdvReac Type Severity Reaction Status Date / Time meperidine [MEPERIDINE] AdvReac Unknown Vomiting Verified 10/03/23 16:22 Review of Systems Review of Systems Narrative: Pertinent positive and negative findings as per HPI Patient History Medical History Left elbow fracture Broken neck Multiple falls Cervical spondylosis with myelopathy Marijuana dependence Osteoarthritis Memory loss Osteoarthrosis Epilepsy, unspecified, not intractable, without status epilepticus Alcohol dependence, uncomplicated Surgical History History of neck surgery History of back surgery H/O foot surgery H/O thumb surgery History of esophagogastroduodenoscopy (EGD) History of colonoscopy Family History Father Cancer Aneurysm Mother Cancer Social History marital status: unknown household members: none lives independently: Yes housing: other ([facility]) Smoking Status: Current every day smoker alcohol intake: current Smoking Status: Current every day smoker tobacco type: cigarettes alcohol intake frequency: 3 or more drinks per day Alcohol type: beer and hard liquor Substance Use Type: marijuana Exam Initial Vital Signs Initial Vital Signs: Vital Signs Temperature 98.5 F 10/03/23 16:16 Pulse Rate 85 10/03/23 16:16 Respiratory Rate 16 10/03/23 16:16 Blood Pressure 167/106 H 10/03/23 16:16 Pulse Oximetry 100 10/03/23 16:16 Oxygen Delivery Method Room Air 10/03/23 16:16 General: Chronically ill-appearing, appears to feel unwell but he is able to speak in full sentence was appropriate thought content HEENT: Moist mucous membranes, normal sclera with reactive pupils, no obvious tenderness to scalp or skull with palpation Neck: No JVD, supple, no cervical adenopathy, no midline cervical spine tenderness Respiratory: Lungs are clear to auscultation, no wheezing no rales no rhonchi. Full and symmetrical air movement Cardiac: Regular rate and rhythm no murmurs no bruits Abdomen: Soft, mild diffuse tenderness with palpation, no rebound or guarding. No flank pain. Skin: Skin is quite thin, sequelae of chronic alcohol use is appreciated, he has multiple bruises in various stages of healing. When his right forearm he has 3 areas of contusion to seemed to be healing nicely he has a 2 cm area that has a dressing over it that is going to need continued wound care but does not appear to be acutely infected. Neurologic: Globally weak but no acute localizing findings Extremities: No lower extremity edema, multiple lumps bruises and scratches in various stages of healing over arms and legs Psych: Cooperative, good eye contact, fluent speech, very clear that he would like help with getting to sober Course Orders Ordered: ED Orders 10/03/23 16:22 XR chest 1V Stat EKG-12 Lead Stat 10/03/23 16:33 Respiratory Panel (Film Array) Stat 10/03/23 17:00 Complete Blood Count AUTO DIFF Stat Comprehensive Metabolic Panel Stat Ethanol (ETOH) Stat Lipase Stat Magnesium Stat NT-proBNP (BNP-Adult 18+) Stat PTT Partial Thromboplastin Eduar Stat Prothrombin Time INR Stat Troponin & CK Cardiac Panel Stat 10/03/23 17:08 Phenytoin / Dilantin Stat 10/03/23 17:26 Urine Drug Screen, Rapid Stat 10/03/23 18:57 CT head/brain wo con Stat Phenytoin Sodium (Phenytoin Er 100 Mg Capsule) 500 mg PO BID BELKIS Discontinued Medications Thiamine HCl 100 mg/ Sodium (Chloride) 101 mls @ 404 mls/hr IV NOW ONE Stop: 10/03/23 18:58 Last Infusion: 10/03/23 19:58 Dose: Infused Documented By: Admin: 10/03/23 19:16 Dose: 404 mls/hr Documented By: DELL Sodium Chloride (Normal Saline 0.9%) 1,000 mls @ 1,000 mls/hr IV BOLUS ONE Stop: 10/03/23 19:56 Last Infusion: 10/03/23 20:33 Dose: Infused Documented By: Admin: 10/03/23 19:28 Dose: 1,000 mls/hr Documented By: DELL Lorazepam (Lorazepam 2 Mg/Ml Inj) 2 mg IV NOW ONE Stop: 10/03/23 19:10 Last Admin: 10/03/23 19:29 Dose: 2 mg Documented By: DELL Ondansetron HCl (Ondansetron 4 Mg/2 Ml Inj) 4 mg IV NOW ONE Stop: 10/03/23 16:43 Last Admin: 10/03/23 16:44 Dose: 4 mg Documented By: DELL Vital Signs Vital signs: Vital Signs - 8 hr 10/03/23 16:16 10/03/23 16:26 10/03/23 16:28 Temperature 98.5 F Pulse Rate 85 82 Respiratory Rate 16 Blood Pressure 167/106 H 214/101 H Pulse Oximetry 100 100 Oxygen Delivery Method Room Air 10/03/23 16:28 10/03/23 16:30 10/03/23 16:30 Temperature Pulse Rate 79 78 Respiratory Rate 13 Blood Pressure 199/101 H Pulse Oximetry 100 100 Oxygen Delivery Method 10/03/23 17:00 10/03/23 17:01 10/03/23 17:01 Temperature Pulse Rate 78 79 Respiratory Rate 20 16 Blood Pressure 184/103 H Pulse Oximetry 100 100 Oxygen Delivery Method 10/03/23 17:30 10/03/23 17:30 10/03/23 18:00 Temperature Pulse Rate 75 Respiratory Rate 17 Blood Pressure 177/91 H 160/87 H Pulse Oximetry 100 Oxygen Delivery Method 10/03/23 18:00 10/03/23 18:30 10/03/23 18:30 Temperature Pulse Rate 80 75 Respiratory Rate 15 Blood Pressure 169/76 H Pulse Oximetry 99 100 Oxygen Delivery Method 10/03/23 19:00 10/03/23 19:00 10/03/23 19:34 Temperature Pulse Rate 80 81 Respiratory Rate 20 Blood Pressure 148/99 H Pulse Oximetry 99 Oxygen Delivery Method 10/03/23 19:42 10/03/23 19:42 10/03/23 20:00 Temperature Pulse Rate 81 Respiratory Rate 21 Blood Pressure 138/82 128/84 Pulse Oximetry 100 Oxygen Delivery Method 10/03/23 20:00 10/03/23 20:30 10/03/23 20:30 Temperature Pulse Rate 79 80 Respiratory Rate 19 18 Blood Pressure 107/75 Pulse Oximetry 99 100 Oxygen Delivery Method 10/03/23 21:00 10/03/23 21:00 10/03/23 21:30 Temperature Pulse Rate 79 Respiratory Rate 18 Blood Pressure 115/72 129/70 Pulse Oximetry 100 Oxygen Delivery Method 10/03/23 21:30 10/03/23 22:00 10/03/23 22:00 Temperature Pulse Rate 81 78 Respiratory Rate 18 19 Blood Pressure 139/75 Pulse Oximetry 100 100 Oxygen Delivery Method Room Air MDM - Recheck/Abnormal Lab/Rx Lab Data 10/03/23 17:00 10/03/23 17:00 Labs: Lab Results 10/03/23 10/03/23 10/03/23 Range/Units 16:33 17:00 17:08 WBC 6.2 (4.5-11.0) X10^3/uL RBC 4.05 L (4.5-5.9) X10^6/uL Hgb 13.5 (13.5-17.5) g/dL Hct 39.8 L (41-53) % MCV 98.2 (80-100) fL MCH 33.2 (26-34) PG MCHC 33.8 (30-36) % RDW 14.4 (11.6-14.8) % Plt Count 109 L (150-400) X10^3/uL Neut % (Auto) 68.6 (50-75) % Lymph % (Auto) 22.8 L (25-40) % [place] % (Auto) 5.4 (3-14) % Eos % (Auto) 2.9 (2-4) % Baso % (Auto) 0.3 (0-2) % Neut # (Auto) 4200 (8135-0937) /uL Lymph # (Auto) 1400 (8420-0814) /uL [place] # (Auto) 300 (0-900) /uL Eos # (Auto) 200 (0-450) /uL Baso # (Auto) 0 (0-100) /uL PT 10.2 (9.4-12.5) SECONDS INR 0.9 (0.9-1.3) APTT 21 L (25.1-36.5) SECONDS Sodium 127 L (137-145) mmol/L Potassium 4.2 (3.4-5.1) mmol/L Chloride 100 (98-107) mmol/L Carbon Dioxide 23 (22-32) mmol/L BUN 7 L (9-20) mg/dL Creatinine 0.68 (0.66-1.25) mg/dL Estimated GFR > 60 (>60) mL/min BUN/Creatinine Ratio 10.3 (6-22) Glucose 97 (80-110) mg/dL Calcium 8.5 (8.4-10.2) mg/dL Magnesium 2.2 (1.6-2.3) mg/dL Total Bilirubin 0.6 (0.2-1.3) mg/dL AST 30 (17-59) IU/L ALT 13 (<50) IU/L Alkaline Phosphatase 151 H (38-126) U/L Total Creatine Kinase 34 L (55-170) U/L Troponin I < 0.012 (0.01-0.034) ng/mL NT-Pro-B Natriuret Pep 489 H (<125) pg/mL Total Protein 6.2 L (6.3-8.2) g/dL Albumin 3.1 L (3.5-5.0) g/dL Globulin 3.1 (1.7-4.1) g/dL Albumin/Globulin Ratio 1.0 (1.0-2.8) Lipase 34 (23-300) U/L Phenytoin 16.0 (10-20) ug/mL Ethyl Alcohol 12 H ( - 10) mg/dL Chlamy pneumoniae PCR Not detected (Not Detect) Adenovirus (PCR) Not detected (Not Detect) B.parapertussis DNA PCR Not detected (Not Detecte) Coronavirus OC43 (PCR) Not detected (Not Detect) Coronavirus HKU1 (PCR) Not detected (Not Detect) Coronavirus 229E (PCR) Not detected (Not Detect) SARS-CoV-2 (PCR) Not detected (Not Detecte) Coronavirus NL63 (PCR) Not detected (Not Detect) Human Metapneumovir PCR Not detected (Not Detect) Influenza Type A (PCR) Not detected (Not Detect) Influenza Type B (PCR) Not detected (Not Detect) M. pneumoniae (PCR) Not detected (Not Detect) Parainfluenza 1 (PCR) Not detected (Not Detect) Parainfluenza 2 (PCR) Not detected (Not Detect) Parainfluenza 3 (PCR) Not detected (Not Detect) Parainfluenza 4 (PCR) Not detected (Not Detect) RSV (PCR) Not detected (Not Detect) Entero/Rhino (PCR) Not detected (Not Detect) MDM Narrative Medical decision making narrative: CC: General malaise Complicating co-morbidities: Alcohol use disorder, trying to stop drinking, epilepsy, currently on Dilantin he notes that he is due for his evening dose so it does appear that he is taking it, Dilantin level is currently pending, lives independently Data collected from: patient Medical records reviewed: Primary care note prompting ER visit today is reviewed Differential considered: Alcohol withdrawal, Dilantin toxicity, subdural hematomas/intracranial hemorrhage, electrolyte abnormalities Exam documented above, pertinent findings include: Patient appears chronically ill but he is awake, cooperative, able to clearly explain his concerns and requests, no localizing neurologic complaints, multiple abrasions and bruises 1 on his right forearm we will need topical wound care but does not appear to be acutely infected or developing an abscess. Lab Test results independently reviewed as above. Pertinent findings: CBC shows no leukocytosis. He has not significantly anemic. MCV is elevated at 98. Platelets are low at 109 which is slightly lower than his baseline Chemistries show hyponatremia at 1:27 a.m. which looks like a diagnosis noted with multiple prior visits. Alk-phos is slightly elevated but bili AST and ALT are appropriate. Low protein and albumin. Lipase is unremarkable Of all level today is 12, less than 10 is typically undetectable Respiratory panel does not show acute viral etiology Independently reviewed EKG: EKG shows sinus rhythm at a rate of 72 no acute ischemic changes. Normal intervals, normal axis Imaging studies independently reviewed: Chest x-ray shows no acute abnormalities CT scan of the head shows age-related changes but no acute intracranial abnormality Consultations: Treatments: 2 mg of Ativan, IV thiamine, ondansetron, a L of fluid Discussion: 67-year-old gentleman with a history of seizure disorder does appear to be taking his Dilantin was therapeutic his evening dose will be given in the emergency department. He is now 12 hours from his most recent alcoholic drink with alcohol almost entirely cleared from his system. He is showing signs of mild withdrawal and did respond nicely to 2 mg of Ativan. He was sent initially for significant ataxia and overall weakness. He is hyponatremic and it does look like he has had issues with hyponatremia previously. There was no evidence of acute coronary syndrome, congestive heart failure or acute anemia. At this time I believe hospital admission to get him to a corrected sodium level, evaluate him for at least 24 hours into his alcohol withdrawal to make sure that he does not have seizures is going to be appropriate. He may be appropriate for an outpatient detox facility at that point. With his history of seizures and current seizure medications he will not meet criteria for outpatient alcohol detox within the 1st 24 hours of his care. We will review with the hospitalist service. Discharge Plan Departure Patient Disposition: Admitted As Inpatient Clinical Impression: Alcohol use disorder, Acute hyponatremia, Wernicke-Korsakoff syndrome (alcoholic), Acute ataxia Alcohol withdrawal Qualifiers: Complication of substance-induced condition: uncomplicated Qualified Code(s): F10.930 - Alcohol use, unspecified with withdrawal, uncomplicated
--- NOTE | 2023-10-03 18:57 | DI.CT.S_ITS ---
PROCEDURE: CT HEAD/BRAIN WO CON INDICATIONS: falls, ETOH abuse, hyponatremia TECHNIQUE: Noncontrast 4.5 mm thick angled axial sections acquired from the foramen magnum to the vertex, with coronal and sagittal reformats. For radiation dose reduction, the following was used: automated exposure control, adjustment of mA and/or kV according to patient size. COMPARISON: [facility], CT, CT HEAD WITHOUT CONTRAST, 01/06/2023, 10:14. FINDINGS: Image quality: Diagnostic. CSF spaces: Basal cisterns are patent. No extra-axial fluid collections. The ventricles are symmetric in size and shape. Brain: No intracranial bleeds or masses. There is cerebral volume loss for age, with resultant ventricular and sulcal prominence. There are periventricular and deep white matter chronic small vessel ischemic changes. There is intracranial internal carotid artery atherosclerosis. Skull and face: Calvarium and visualized facial bones appear intact, without suspicious lesions. Sinuses: Visualized sinuses and mastoids are clear. IMPRESSION: 1. CT head without acute intracranial abnormalities or acute calvarial fractures. 2. Age-related senescent changes and sequela of chronic small vessel ischemic disease. Dictated by: Ronnie Cheng M.D. on 10/03/2023 at 19:56 Approved by: Ronnie Cheng M.D. on 10/03/2023 at 19:57
[2023-10-03] MEDS: THIAMINE 100 MG in SODIUM CHLORIDE 0.9% 100 ML 404 MG IV (19:16)
[2023-10-03] MEDS: SODIUM CHLORIDE 0.9% 1,000 ML 1000 ML IV (19:28)
[2023-10-03] MEDS: LORazepam 2 MG/ML INJ IV (19:29)
[2023-10-03] MEDS: PHENYTOIN ER 100 MG CAPSULE 500 MG PO (22:24)
--- NOTE | 2023-10-03 22:58 | PM.HP.1 ---
History of Present Illness History of Present Illness Date Patient Seen: 10/04/23 Chief complaint: sent by PCP, generalized weakness Narrative: 67 y/o with PMH of epilepsy, HTN, alcoholism, quit drinking 2 days ago and seen in PCP's office for weakness and dizziness. From then, he has no recollection of how he got to the ED. Presented tachycardic with mild alcohol withdrawal. On September 10 seen in the ED after GLF and Lt arm injury. On admission unable to participate in [facility] Medical History (Updated 10/03/23 @ 23:41 by Alexander Curtis MD) Cognitive deficits Chronic hyponatremia Left elbow fracture Broken neck Multiple falls Cervical spondylosis with myelopathy Marijuana dependence Osteoarthritis Memory loss Osteoarthrosis Epilepsy, unspecified, not intractable, without status epilepticus Alcohol dependence, uncomplicated Surgical History History of neck surgery History of back surgery H/O foot surgery H/O thumb surgery History of esophagogastroduodenoscopy (EGD) History of colonoscopy Family History Father Cancer Aneurysm Mother Cancer Social History marital status: unknown household members: none lives independently: Yes housing: other ([facility]) Smoking Status: Current every day smoker alcohol intake: current Meds Home Medications and Allergies Home Medications Medication Instructions Recorded Confirmed Type amlodipine 5 mg tablet 5 mg PO DAILY #30 tabs 04/25/23 10/03/23 Rx phenytoin sodium extended 100 mg 500 mg PO 1200,2100 09/01/23 10/03/23 History capsule (Dilantin Extended) cephalexin 500 mg capsule 500 mg PO Q8H #21 caps 10/03/23 10/03/23 Rx Allergies Allergy/AdvReac Type Severity Reaction Status Date / Time meperidine [MEPERIDINE] AdvReac Unknown Vomiting Verified 10/03/23 16:22 Review of Systems Review of Systems Narrative: unobtainable due to cognitive deficits Exam Vital Signs (past 8 hours): - 10/03/23 16:16 10/03/23 16:26 10/03/23 16:28 Temperature 98.5 F Pulse Rate 85 82 Respiratory Rate 16 Blood Pressure 167/106 H 214/101 H Pulse Oximetry 100 100 Oxygen Delivery Method Room Air 10/03/23 16:28 10/03/23 16:30 10/03/23 16:30 Temperature Pulse Rate 79 78 Respiratory Rate 13 Blood Pressure 199/101 H Pulse Oximetry 100 100 Oxygen Delivery Method 10/03/23 17:00 10/03/23 17:01 10/03/23 17:01 Temperature Pulse Rate 78 79 Respiratory Rate 20 16 Blood Pressure 184/103 H Pulse Oximetry 100 100 Oxygen Delivery Method 10/03/23 17:30 10/03/23 17:30 10/03/23 18:00 Temperature Pulse Rate 75 Respiratory Rate 17 Blood Pressure 177/91 H 160/87 H Pulse Oximetry 100 Oxygen Delivery Method 10/03/23 18:00 10/03/23 18:30 10/03/23 18:30 Temperature Pulse Rate 80 75 Respiratory Rate 15 Blood Pressure 169/76 H Pulse Oximetry 99 100 Oxygen Delivery Method 10/03/23 19:00 10/03/23 19:00 10/03/23 19:34 Temperature Pulse Rate 80 81 Respiratory Rate 20 Blood Pressure 148/99 H Pulse Oximetry 99 Oxygen Delivery Method 10/03/23 19:42 10/03/23 19:42 10/03/23 20:00 Temperature Pulse Rate 81 Respiratory Rate 21 Blood Pressure 138/82 128/84 Pulse Oximetry 100 Oxygen Delivery Method 10/03/23 20:00 10/03/23 20:30 10/03/23 20:30 Temperature Pulse Rate 79 80 Respiratory Rate 19 18 Blood Pressure 107/75 Pulse Oximetry 99 100 Oxygen Delivery Method 10/03/23 21:00 10/03/23 21:00 10/03/23 21:30 Temperature Pulse Rate 79 Respiratory Rate 18 Blood Pressure 115/72 129/70 Pulse Oximetry 100 Oxygen Delivery Method 10/03/23 21:30 10/03/23 22:00 10/03/23 22:00 Temperature Pulse Rate 81 78 Respiratory Rate 18 19 Blood Pressure 139/75 Pulse Oximetry 100 100 Oxygen Delivery Method Room Air 10/03/23 22:30 10/03/23 22:30 Temperature Pulse Rate 80 Respiratory Rate 17 Blood Pressure 147/89 H Pulse Oximetry 99 Oxygen Delivery Method Room Air Oxygen Delivery Method Room Air Const Other: in no distress, appears sleepy, weak HENMT Other: normocephalic Neck Other: supple Resp Other: normal respiratory effort Cardio Other: RRR GI Other: abdomen not distended Skin Other: Lt arm hematoma Neuro Other: cognitive deficits, impaired memory Extrem Other: w/o swelling Psych Other: flat affect Objective ECG Impression: NSR, non-ischemic Labs 10/03/23 17:00 10/03/23 17:00 Labs: Laboratory Results - last 24 hr 10/03/23 10/03/23 10/03/23 16:33 17:00 17:08 WBC 6.2 RBC 4.05 L Hgb 13.5 Hct 39.8 L MCV 98.2 MCH 33.2 MCHC 33.8 RDW 14.4 Plt Count 109 L Neut % (Auto) 68.6 Lymph % (Auto) 22.8 L [place] % (Auto) 5.4 Eos % (Auto) 2.9 Baso % (Auto) 0.3 Neut # (Auto) 4200 Lymph # (Auto) 1400 [place] # (Auto) 300 Eos # (Auto) 200 Baso # (Auto) 0 PT 10.2 INR 0.9 APTT 21 L Sodium 127 L Potassium 4.2 Chloride 100 Carbon Dioxide 23 BUN 7 L Creatinine 0.68 Estimated GFR > 60 BUN/Creatinine Ratio 10.3 Glucose 97 Calcium 8.5 Magnesium 2.2 Total Bilirubin 0.6 AST 30 ALT 13 Alkaline Phosphatase 151 H Total Creatine Kinase 34 L Troponin I < 0.012 NT-Pro-B Natriuret Pep 489 H Total Protein 6.2 L Albumin 3.1 L Globulin 3.1 Albumin/Globulin Ratio 1.0 Lipase 34 Phenytoin 16.0 Ethyl Alcohol 12 H Chlamy pneumoniae PCR Not detected Adenovirus (PCR) Not detected B.parapertussis DNA PCR Not detected Coronavirus OC43 (PCR) Not detected Coronavirus HKU1 (PCR) Not detected Coronavirus 229E (PCR) Not detected SARS-CoV-2 (PCR) Not detected Coronavirus NL63 (PCR) Not detected Human Metapneumovir PCR Not detected Influenza Type A (PCR) Not detected Influenza Type B (PCR) Not detected M. pneumoniae (PCR) Not detected Parainfluenza 1 (PCR) Not detected Parainfluenza 2 (PCR) Not detected Parainfluenza 3 (PCR) Not detected Parainfluenza 4 (PCR) Not detected RSV (PCR) Not detected Entero/Rhino (PCR) Not detected Assessment & Plan Assessment and plan (1) Alcohol withdrawal: Qualifiers: Complication of substance-induced condition: uncomplicated Qualified Code(s): F10.930 - Alcohol use, unspecified with withdrawal, uncomplicated Status: Acute (2) Balance disorder: Status: Acute (3) Chronic hyponatremia: Status: Acute (4) Cognitive deficits: Status: Acute Assessment & Plan narrative: Alcohol Withdrawal - mild on admission - observation on telemetry, WA protocol - willing to quit drinking - cognitive deficits, memory loss, likely related Epilepsy - Dilantin - level therapeutic Hyponatremia - chronic, likely related to beer drinking - monitored electrolytes - NS Recurrent Falls / suspected cerebellar ataxia - recent Rt arm injury - fall risk HTN - Norvasc Arm Laceration / Injury - Keflex DVT prophylaxis - SCDs Time-Based Coding :: [TOTAL MINUTES] spent with patient and on the chart (including review of chart, obtaining history, exam, reviewing outside data, placing orders, documenting exam and treatment plan, and counseling patient) on [DATE].
[2023-10-04] VITALS (49 sets, daily range): BP systolic 94–187; BP diastolic 55–117; PULSE 59–87; RESP 12–36; TEMP 36.3; O2SAT 91–100
[2023-10-04] MEDS: cephALEXin 250 MG CAPSULE 500 MG PO ×4 (00:04→17:09)
[2023-10-04] MEDS: SODIUM CHLORIDE 0.9% 1,000 ML 75 ML IV ×2 (01:35→15:59)
[2023-10-04 06:06] LABS: Add Manual Diff / Slide Review NO; Basophils Absolute Auto 100 /uL (0-100); Basophils Percent Auto 1.2 % (0-2); Eosinophils Absolute Auto 100 /uL (0-450); Eosinophils Percent Auto 2.5 % (2-4); Hematocrit 33.4 % (41-53); Hemoglobin 11.5 g/dL (13.5-17.5); Lymphocytes Absolute Auto 900 /uL (1100-4500); Mean Corpuscular HGB Conc 34.3 % (30-36); Mean Corpuscular Hemoglobin 33.7 PG (26-34); Monocytes Absolute Auto 300 /uL (0-900); Monocytes Percent Auto 6.4 % (3-14); Neutrophils Absolute Auto 3200 /uL (1500-7000); Neutrophils Percent Auto 69.9 % (50-75); Platelet Count 95 X10^3/uL (150-400); Red Blood Cell Count 3.41 X10^6/uL (4.5-5.9); Red Cell Distribution Width 14.4 % (11.6-14.8); White Blood Cell Count 4.6 X10^3/uL (4.5-11.0)
[2023-10-04 06:16] LABS: Alanine Aminotransferase 10 IU/L (<50); Albumin 2.6 g/dL (3.5-5.0); Alkaline Phosphatase 138 U/L (38-126); Aspartate Aminotransferase 20 IU/L (17-59); BUN Creatinine Ratio 10.1 (6-22); Bilirubin Total 0.6 mg/dL (0.2-1.3); Blood Urea Nitrogen 7 mg/dL (9-20); Carbon Dioxide 21 mmol/L (22-32); Chloride 103 mmol/L (98-107); Estimated Glomerular Filt Rate > 60 mL/min (>60); Globulin 2.6 g/dL (1.7-4.1); Glucose 95 mg/dL (80-110); HEMOLYSIS < 15 (0-50); Magnesium 2.2 mg/dL (1.6-2.3); Potassium 3.8 mmol/L (3.4-5.1); Sodium 127 mmol/L (137-145); Total Protein 5.2 g/dL (6.3-8.2)
--- NOTE | 2023-10-04 07:31 | DI.ECHO.S_ITS ---
[facility] : : [address] : : [place] : : [id number] : : Phone: [phone] Echocardiogram Report + + :Name: LALITA HUBBARD Study Date: 10/04/2023 Height: 70 in : [id number] ReadingLocation: Weight: 140 lb : : Gender: Male BSA: 1.8 m2 : :: 1955 Age: 67 yrs BP: 163/84 mmHg: :Reason For Study: NSVT : : Performed By: Grace Martini : :Referring: MARIA ELENA ALSTON L : + + Interpretation Summary Normal sinus rhythm. Normal LV size; borderline concentric LVH; normal wall motion and LV systolic function. EF is 65-70%. Normal chamber sizes. No valvular abnormalities. No prior study available for comparison. Procedure: A two-dimensional transthoracic echocardiogram with color flow and Doppler was performed. The study quality was technically difficult. There is no prior echocardiogram noted for this patient. The patient was in normal sinus rhythm during the exam. Left Ventricle: The left ventricular cavity is small. Left ventricular wall thickness is borderline increased. The ejection fraction is estimated to be 65-70%. There are no focal wall motion abnormalities. Diastolic parameters suggest a relaxation abnormality of the left ventricle, consistent with probable normal filling pressures. Right Ventricle: The right ventricle is normal size. Right ventricular function cannot be assessed due to poor image quality. Atria: Both atria are normal in size. There is no Doppler evidence for an interatrial shunt. Mitral Valve: The mitral valve is grossly normal. There is no mitral regurgitation noted. Aortic Valve: The aortic valve is not well visualized. The aortic valve opens well. No aortic regurgitation is present. Tricuspid Valve: The tricuspid valve is not well visualized, but is grossly normal. Pulmonary artery pressures cannot be estimated because of the lack of a measurable TR jet velocity but the IVC suggests a CVP of around 3 mmHg. Pulmonic Valve: The pulmonic valve is not well visualized. Great Vessels: The aortic root is normal size. The ascending aorta could not be visualized. The IVC is of normal diameter and collapses greater than 50% with a sniff. This suggests a low right atrial pressure of 3 mm Hg. Pericardium/ Pleura There is an anterior echo-free space consistent with a fat pad. There is no pericardial effusion. MMode/2D Measurements & Calculations LVIDd: 3.9 cm LVOT diam: 2.1 cm LVIDs: 2.4 cm Ao root diam: 3.8 cm FS: 40.0 % IVSd: 0.96 cm LVPWd: 1.1 cm LV lara. diameter/BSA (cm/m^2): 2.2 LV sys. diameter/BSA (cm/m^2): 1.3 LA A2 area: 19.9 cm2 RA long axis: 3.9 cm LA A4 area: 14.6 cm2 RA area: 9.1 cm2 LA length (vol): 5.3 cm RA vol: 17.9 ml LA vol: 46.9 ml RA : 10.0 ml/m2 LA vol index: 26.1 ml/m2 IVC diam: 1.1 cm RVD1 (basal): 2.9 cm TAPSE: 1.3 cm Doppler Measurements & Calculations Ao V2 max: 114.0 cm/sec LVOT Max Dl: 105.2 cm/sec Ao V2 mean: 83.1 cm/sec LV V1 max P.4 mmHg Ao max P.2 mmHg LV V1 VTI: 25.8 cm Ao mean P.0 mmHg GINGER(I,D): 3.4 cm2 Ao V2 VTI: 25.3 cm GINGER(V,D): 3.1 cm2 sev ratio: 1.0 GINGER indexed to BSA (cm^2/m^2): 1.9 MV E max dl: 53.4 cm/sec SV(LVOT): 85.7 ml MV A max dl: 78.1 cm/sec MV E/A: 0.68 Med Peak E' Dl: 4.5 cm/sec E/E' med: 11.9 Lat Peak E' Dl: 3.6 cm/sec E/E' lat: 15.0 E/e' average: 13.4 MV dec time: 0.22 sec Electronically signed by: Tena Laura M.D. on Reading Physician:10/04/2023 05:02 PM
--- NOTE | 2023-10-04 07:50 | EKG_ITS ---
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
--- NOTE | 2023-10-04 07:56 | P.PN_ITS ---
Subjective Subjective Interval history: From night doctor: 67 y/o with PMH of epilepsy, HTN, alcoholism, quit drinking 2 days ago and seen in PCP's office for weakness and dizziness. From then, he has no recollection of how he got to the ED. Presented tachycardic with mild alcohol withdrawal. On September 10 seen in the ED after GLF and Lt arm injury. On admission unable to participate in ROS. A run of NSVT at 07:15 10/03. S: He is doing well. He denies hallucinations, chest pain, or dyspnea. He also denies a past history of cardiac issues. Exam Vital Signs (past 8 hours): Oxygen Delivery Method Room Air Narrative Exam Narrative: NAD, alert and oriented. Fluent speech. Lungs are clear, normal rate and effort. Heart is regular, no murmur gallop or rub. Abdomen is soft, non distended. Extremities are free of edema. Objective ECG Impression: NSR, non-ischemic. Normal QT Imaging CT scan - head: Radiologist's impression: 1. CT head without acute intracranial abnormalities or acute calvarial fractures. 2. Age-related senescent changes and sequela of chronic small vessel ischemic disease. Chest x-ray: Radiologist's impression: No acute cardiopulmonary abnormality is seen. Labs 10/04/23 05:40 10/04/23 05:40 Labs: Laboratory Results - last 24 hr 10/03/23 10/03/23 10/03/23 16:33 17:00 17:08 WBC 6.2 RBC 4.05 L Hgb 13.5 Hct 39.8 L MCV 98.2 MCH 33.2 MCHC 33.8 RDW 14.4 Plt Count 109 L Neut % (Auto) 68.6 Lymph % (Auto) 22.8 L Hayes % (Auto) 5.4 Eos % (Auto) 2.9 Baso % (Auto) 0.3 Neut # (Auto) 4200 Lymph # (Auto) 1400 Hayes # (Auto) 300 Eos # (Auto) 200 Baso # (Auto) 0 PT 10.2 INR 0.9 APTT 21 L Sodium 127 L Potassium 4.2 Chloride 100 Carbon Dioxide 23 BUN 7 L Creatinine 0.68 Estimated GFR > 60 BUN/Creatinine Ratio 10.3 Glucose 97 Calcium 8.5 Magnesium 2.2 Total Bilirubin 0.6 AST 30 ALT 13 Alkaline Phosphatase 151 H Total Creatine Kinase 34 L Troponin I < 0.012 NT-Pro-B Natriuret Pep 489 H Total Protein 6.2 L Albumin 3.1 L Globulin 3.1 Albumin/Globulin Ratio 1.0 Lipase 34 Phenytoin 16.0 Ethyl Alcohol 12 H Chlamy pneumoniae PCR Not detected Adenovirus (PCR) Not detected B.parapertussis DNA PCR Not detected Coronavirus OC43 (PCR) Not detected Coronavirus HKU1 (PCR) Not detected Coronavirus 229E (PCR) Not detected SARS-CoV-2 (PCR) Not detected Coronavirus NL63 (PCR) Not detected Human Metapneumovir PCR Not detected Influenza Type A (PCR) Not detected Influenza Type B (PCR) Not detected M. pneumoniae (PCR) Not detected Parainfluenza 1 (PCR) Not detected Parainfluenza 2 (PCR) Not detected Parainfluenza 3 (PCR) Not detected Parainfluenza 4 (PCR) Not detected RSV (PCR) Not detected Entero/Rhino (PCR) Not detected 10/04/23 05:40 WBC 4.6 RBC 3.41 L Hgb 11.5 L Hct 33.4 L MCV 98.0 MCH 33.7 MCHC 34.3 RDW 14.4 Plt Count 95 L Neut % (Auto) 69.9 Lymph % (Auto) 20.0 L Hayes % (Auto) 6.4 Eos % (Auto) 2.5 Baso % (Auto) 1.2 Neut # (Auto) 3200 Lymph # (Auto) 900 L Hayes # (Auto) 300 Eos # (Auto) 100 Baso # (Auto) 100 PT INR APTT Sodium 127 L Potassium 3.8 Chloride 103 Carbon Dioxide 21 L BUN 7 L Creatinine 0.69 Estimated GFR > 60 BUN/Creatinine Ratio 10.1 Glucose 95 Calcium 8.0 L Magnesium 2.2 Total Bilirubin 0.6 AST 20 ALT 10 Alkaline Phosphatase 138 H Total Creatine Kinase Troponin I NT-Pro-B Natriuret Pep Total Protein 5.2 L Albumin 2.6 L Globulin 2.6 Albumin/Globulin Ratio 1.0 Lipase Phenytoin Ethyl Alcohol Chlamy pneumoniae PCR Adenovirus (PCR) B.parapertussis DNA PCR Coronavirus OC43 (PCR) Coronavirus HKU1 (PCR) Coronavirus 229E (PCR) SARS-CoV-2 (PCR) Coronavirus NL63 (PCR) Human Metapneumovir PCR Influenza Type A (PCR) Influenza Type B (PCR) M. pneumoniae (PCR) Parainfluenza 1 (PCR) Parainfluenza 2 (PCR) Parainfluenza 3 (PCR) Parainfluenza 4 (PCR) RSV (PCR) Entero/Rhino (PCR) [facility] Medical History Cognitive deficits Chronic hyponatremia Left elbow fracture Broken neck Multiple falls Cervical spondylosis with myelopathy Marijuana dependence Osteoarthritis Memory loss Osteoarthrosis Epilepsy, unspecified, not intractable, without status epilepticus Alcohol dependence, uncomplicated Surgical History History of neck surgery History of back surgery H/O foot surgery H/O thumb surgery History of esophagogastroduodenoscopy (EGD) History of colonoscopy Family History Father Cancer Aneurysm Mother Cancer Social History marital status: unknown household members: none lives independently: Yes housing: other ([employer] [employer]) Smoking Status: Current every day smoker alcohol intake: current Assessment & Plan Assessment & Plan narrative: 1. Alcohol Withdrawal, present on admission and active. - mild on admission - observation on telemetry, CIWA protocol - willing to quit drinking - cognitive deficits, memory loss, likely related 2. NSVT, new and active. 3. Severe alcohol use disorder, present on admission and active. 4. Epilepsy, present on admission and active. - Dilantin - level therapeutic 5. Hyponatremia, present on admission and active. - chronic, likely related to beer drinking - monitored electrolytes - NS 6. 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 - recent Rt arm injury - fall risk 7. HTN, present on admission and active. - Norvasc 8. Arm Laceration / Injury, present on admission and active. - Keflex PLAN: -amiodarone bolus and check ECG. -echo to rule out cardiomyopathy. -trend troponin. -CIWA protocol for alcohol withdrawal. -thiamine replacement. -saline infusion. DVT prophylaxis - SCDs Time-Based Coding :: 40 min spent with patient and on the chart (including review of chart, obtaining history, exam, reviewing outside data, placing orders, documenting exam and treatment plan, and counseling patient) on 10/03.
[2023-10-04] MEDS: AMIODARONE 150 MG/100 ML PIGGYBACK 600 MG IV (08:30)
[2023-10-04] MEDS: AMIODARONE 360 MG/200 ML PIGGYBACK 33.33 MG IV (08:48)
--- NOTE | 2023-10-04 09:05 | PC.NURSE ---
Day shift: MD Azar aware of arrythmias on telemetry. Patient denies chest pain. EKG at bedside done. MD Azar transferred patient to ICU for amiodarone drip. Report given to YE Walker
[2023-10-04] MEDS: FOLIC ACID 1 MG TABLET PO (09:21)
[2023-10-04] MEDS: THIAMINE 100 MG TABLET PO (09:21)
[2023-10-04] MEDS: MULTIVITAMIN 1 TABLET 1 TAB PO (09:21)
--- NOTE | 2023-10-04 09:48 | PC.NURSE ---
Day shift: pt transferred from AC 215 to 227. A&Ox4, CIWA 1. New orders initiated. Ambulated to BR w/ assistance FWW and gaitbelt, unsteady on his feet. Seizure pads in place. NSR, vitals WDL. Care ongoing.
--- NOTE | 2023-10-04 11:05 | CM.DANOTE ---
Addendum entered by RAFAEL Baker 10/04/23 15:32: ADD: Patient is a [place], [place]. Unsure his service connection and does not have a VA provider. [employer] [facility] melody completed with patient and faxed to [facility] at F [phone] Original Note: Initial DCP Assessment Note Pt is a 67 yo male, resident at [facility] in [place], presents from PCP visit, complaining of weakness and not feeling well. According to record review, patient was here 09/10 after a GLF at home, patient w/ hx of poor balance, ETOH use with Wernickes cognitive decline, and hx of seizures. Patient admitted to correct sodium level and for medical management through ETOH w/d. PCP: Noris Shipley Payer: [facility] MCR/M[place] Reviewed chart, pt discussed in multidisciplinary rounds this morning. Patient will be here at least another night, OBS->INPT per UR RN. Met w/patient to introduce self and role. Patient polite and appreciative throughout visit. Patient reports he lives independently at [facility], uses walker in the apt and w/c vs scooter outside of apt. Patient admits he could use some help, denies having TELLO caregivers at this time. 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 When asked if his drinking is a problem, patient reports he didn't think so until being admitted. Discussed HH services and patient agreeable. Discussed continuous churn buttermaker care/[place] application and patient states appreciation for any help offered with this. Patient reports he has a cell phone to receive calls from the state once discharged. Patient reports he has assigned a DPOA, friend Mo. Mo does not appear to be listed in patient's contacts unless friend Layo Miguel [phone] is also Mo (?) Plan: Discharge home to [facility] apt w/friends, possibly HH services, friend to transport vs medicaid transport. TELLO melody pending. CM team will plan to follow clinical course closely. RAFAEL Arana Discharge Planning/Care Management CM Discharge Assessment Start: 10/04/23 10:53 Freq: Status: Active Protocol: Document 10/04/23 10:53 PB (Rec: 10/04/23 11:04 JW [id number]) Discharge Planning Assessment Assigned Manufacturing Process Engineer RAFAEL Dubois DPOA/Assigned Designee Name Layo Correia, friend Contact Information [phone] Advance Directives? No Advance Directives on File No History Provided By Patient,Medical Record Prior Living Arrangements Apartment/Condo Household Members none Type of transporation used prior to Relies on Others admit Independent with ADL's Yes: Poor activity tolerance Is patient alert and oriented? Yes: Wernicke-Korsakoff syndrome Needs Assistance With Meal Prep,Managing Medications ,Home Chores / Shopping Comment Could use assist with these items, currently lives alone, mostly indp w/use of walker DME Already Rented / Owned FWW / Walker Barriers to Discharge Yes Comment Patient lives alone and will need to return w/o the need for 09/09 supervision, likely home w/HH and friends to check on him. Completing a senior care care melody for in home care /TELLO with patient before his discharge. Discharge Plan Home with Home Health Transportation Arrangement Likely medicaid transport vs friend pov Referrals Initiated Home Health Additional Comment Still need to discuss preference with patient
[2023-10-04 11:33] LABS: MRSA (Nasal) PCR NOT DETECTED (Not Detect)
[2023-10-04] MEDS: AMLODIPINE 5 MG TABLET PO (12:02)
[2023-10-04] MEDS: PHENYTOIN ER 100 MG CAPSULE 500 MG PO ×2 (12:03→21:14)
[2023-10-04 12:24] LABS: UR Morphine/Opiate cutoff 300 Negative (Negative); Ur Creatinine Normal (Normal); Ur Specific Gravity Normal (Normal); Urine Cocaine Negative (Negative); Urine Tetrahydrocannabinol Positive (Negative); Urine pH Normal (Normal)
[2023-10-04 12:25] LABS: Urine Amphetamines Negative (Negative); Urine Barbiturates Positive (Negative); Urine Benzodiazepines Positive (Negative); Urine MDMA Negative (Negative); Urine Methadone Negative (Negative); Urine Methamphetamines Negative (Negative); Urine Oxycodone Negative (Negative); Urine Phencyclidine Negative (Negative); Urine Tricyclic Antidepressant Negative (Negative)
[2023-10-04] MEDS: LORazepam 2 MG/ML INJ IV ×4 (13:33→21:15)
[2023-10-04 14:37] LABS: BUN Creatinine Ratio 10.3 (6-22); Blood Urea Nitrogen 7 mg/dL (9-20); Carbon Dioxide 22 mmol/L (22-32); Chloride 104 mmol/L (98-107); Estimated Glomerular Filt Rate > 60 mL/min (>60); Glucose 114 mg/dL (80-110); HEMOLYSIS < 15 (0-50); Sodium 129 mmol/L (137-145)
[2023-10-04] MEDS: AMIODARONE 360 MG/200 ML PIGGYBACK 16.7 MG IV (15:51)
[2023-10-04] MEDS: dexmedeTOMIDine in 0.9 % NaCL 400 MCG/100 ML PLAST..BAG IV (21:01)
[2023-10-05] VITALS (54 sets, daily range): BP systolic 92–146; BP diastolic 58–90; PULSE 48–68; RESP 14–25; O2SAT 97–100
[2023-10-05] MEDS: LORazepam 2 MG/ML INJ IV (01:07)
[2023-10-05] MEDS: SODIUM CHLORIDE 0.9% 1,000 ML 75 ML IV (04:58)
--- NOTE | 2023-10-05 07:58 | PM.PN.1 ---
Subjective Subjective Interval history: S: Sedated from Precedex. Exam Vital Signs (past 8 hours): - 10/05/23 00:00 10/05/23 00:07 10/05/23 00:07 Pulse Rate 60 59 L Respiratory Rate 15 16 Blood Pressure 101/60 Pulse Oximetry 99 100 10/05/23 00:30 10/05/23 01:00 10/05/23 01:00 Pulse Rate 58 L 59 L Respiratory Rate 16 16 Blood Pressure 108/61 Pulse Oximetry 97 97 10/05/23 01:30 10/05/23 02:00 10/05/23 02:00 Pulse Rate 55 L 58 L 57 L Respiratory Rate 17 19 17 Blood Pressure 92/60 Pulse Oximetry 98 98 10/05/23 02:00 10/05/23 02:30 10/05/23 03:00 Pulse Rate 54 L 68 Respiratory Rate 21 Blood Pressure 92/60 Pulse Oximetry 100 100 10/05/23 03:01 10/05/23 03:01 10/05/23 03:30 Pulse Rate 63 55 L Respiratory Rate 20 Blood Pressure 146/90 H Pulse Oximetry 100 100 10/05/23 04:00 10/05/23 04:00 10/05/23 04:30 Pulse Rate 59 L 60 Respiratory Rate 16 16 Blood Pressure 118/62 Pulse Oximetry 98 97 Oxygen Delivery Method Room Air Oxygen Flow Rate 0 Narrative Exam Narrative: Sedated, NAD. Lungs are clear, normal rate and effort. Heart is regular, no murmur gallop or rub. Abdomen is soft, non distended. Extremities are free of edema. Objective Labs 10/04/23 05:40 10/04/23 14:15 Labs: Laboratory Results - last 24 hr 10/04/23 10/04/23 10/04/23 08:27 12:15 14:15 Sodium 129 L Potassium 4.0 Chloride 104 Carbon Dioxide 22 BUN 7 L Creatinine 0.68 Estimated GFR > 60 BUN/Creatinine Ratio 10.3 Glucose 114 H Calcium 8.0 L Nasal Screen MRSA (PCR) Not detected U Opiates 300ng/mL cut Negative Ur Oxycodone Screen Negative Urine Methadone Screen Negative Ur Barbiturates Screen Positive H U Tricyclic Antidepress Negative Ur Phencyclidine Scrn Negative Ur Amphetamines Screen Negative U Methamphetamines Scrn Negative Ur MDMA Scrn (Ecstasy) Negative U Benzodiazepines Scrn Positive H Urine Cocaine Screen Negative U Marijuana (THC) Screen Positive H Urine pH Normal Urine Specific Dexter Normal Ur Creatinine Normal PFSH Medical History Cognitive deficits Chronic hyponatremia Left elbow fracture Broken neck Multiple falls Cervical spondylosis with myelopathy Marijuana dependence Osteoarthritis Memory loss Osteoarthrosis Epilepsy, unspecified, not intractable, without status epilepticus Alcohol dependence, uncomplicated Surgical History History of neck surgery History of back surgery H/O foot surgery H/O thumb surgery History of esophagogastroduodenoscopy (EGD) History of colonoscopy Family History Father Cancer Aneurysm Mother Cancer Social History marital status: unknown household members: none lives independently: Yes housing: other ([facility]) Smoking Status: Current every day smoker alcohol intake: current Assessment & Plan Assessment & Plan narrative: 1. Alcohol Withdrawal, present on admission and active. - more severe as of . Started on Precedex. 2. NSVT, new and active. - improved with amiodarone load and infusion. 3. Severe alcohol use disorder, present on admission and active. 4. Epilepsy, present on admission and active. - Dilantin - level therapeutic 5. Hyponatremia, present on admission and active. - chronic, likely related to beer drinking - monitored electrolytes - NS 6. 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 - recent Rt arm injury - fall risk 7. HTN, present on admission and active. - Norvasc 8. Arm Laceration / Injury, present on admission and active. - Keflex PLAN: -continue CIWA protocol, Precedex. -continue saline infusion. -start amiodarone PO 400 mg daily today. -monitor on tele (No VT overnight) DVT prophylaxis - SCDs Time-Based Coding :: 30 min spent with patient and on the chart (including review of chart, obtaining history, exam, reviewing outside data, placing orders, documenting exam and treatment plan, and counseling patient) on 10/04
[2023-10-05] MEDS: cephALEXin 250 MG CAPSULE 500 MG PO (08:00)
[2023-10-05] MEDS: MULTIVITAMIN 1 TABLET 1 TAB PO (09:20)
[2023-10-05] MEDS: FOLIC ACID 1 MG TABLET PO (09:20)
[2023-10-05] MEDS: AMLODIPINE 5 MG TABLET PO (09:20)
[2023-10-05] MEDS: THIAMINE 100 MG TABLET PO (09:20)
[2023-10-05] MEDS: dexmedeTOMIDine in 0.9 % NaCL 400 MCG/100 ML PLAST..BAG IV (11:40)
[2023-10-05] MEDS: PHENYTOIN ER 100 MG CAPSULE 500 MG PO (11:40)
--- NOTE | 2023-10-05 15:36 | CM.DPC ---
DCP Cont: Per MD and RN, pt in withdrawal and still getting Precedex and alternately impulsive and lethargic and not yet medically appropriate for PT eval yet today. SW made [facility] referral based on Vendor Calendar and discussion with pt previously yesterday and they likely can accept and reviewing. F2F completed but not scanned or faxed yet. Plan: SW to follow closely for eventual PT eval when pt more medically appropriate to confirm safe d/c home with HH and any further discharge planning needs. RAFAEL Sepulveda
[2023-10-05] MEDS: SODIUM CHLORIDE 0.9% 1,000 ML 125 ML IV (15:50)
[2023-10-05] MEDS: dexmedeTOMIDine in 0.9 % NaCL 400 MCG/100 ML PLAST..BAG 9.525 MCG IV (22:26)
[2023-10-06] VITALS (46 sets, daily range): BP systolic 79–132; BP diastolic 49–67; PULSE 49–97; RESP 0–25; TEMP 36.3–36.8; O2SAT 96–100
[2023-10-06] MEDS: SODIUM CHLORIDE 0.9% 1,000 ML 125 ML IV ×4 (00:54→21:20)
[2023-10-06] MEDS: dexmedeTOMIDine in 0.9 % NaCL 400 MCG/100 ML PLAST..BAG 11.113 MCG IV (06:48)
--- NOTE | 2023-10-06 07:36 | PC.NURSE ---
Property Management Specialist Note-Patient has confused and restless intermittently, CIWA 2-6, Precedex 0.7-0.8mcg/kg/hr. BP 80s-105/50s, see vital trends. SB/SR, 1st degree AVB, afebrile, RA >97% upper airway congestion and moist cough. Condom cath in place, voided 50ml concentrated urine, has denies urge to void, bladder scanned >400ml, will do straight cath.
--- NOTE | 2023-10-06 07:37 | PM.PN.1 ---
Subjective Subjective Interval history: Interval summary: admitted with moderate to severe alcohol withdraway. On Precedex 10/04. Hallucinations on October 04. S: He was still sedated from but is able to open his eyes and state that he was okay. Exam Vital Signs (past 8 hours): - 10/06/23 00:00 10/06/23 00:00 10/06/23 00:00 Temperature Pulse Rate 52 L Respiratory Rate 16 Blood Pressure 84/50 L Pulse Oximetry 96 Oxygen Delivery Method Room Air 10/06/23 00:03 10/06/23 00:03 10/06/23 00:30 Temperature Pulse Rate 61 53 L Respiratory Rate 20 20 Blood Pressure 91/57 L Pulse Oximetry 96 98 Oxygen Delivery Method 10/06/23 01:00 10/06/23 01:00 10/06/23 01:06 Temperature Pulse Rate 52 L 52 L Respiratory Rate 18 18 Blood Pressure 82/54 L Pulse Oximetry 98 99 Oxygen Delivery Method 10/06/23 01:06 10/06/23 01:09 10/06/23 01:09 Temperature Pulse Rate 60 Respiratory Rate 24 Blood Pressure 81/53 L 95/57 L Pulse Oximetry 98 Oxygen Delivery Method 10/06/23 01:30 10/06/23 02:00 10/06/23 02:01 Temperature Pulse Rate 54 L 52 L Respiratory Rate 17 18 Blood Pressure 100/58 L Pulse Oximetry 98 98 Oxygen Delivery Method 10/06/23 02:01 10/06/23 02:30 10/06/23 03:00 Temperature Pulse Rate 53 L 57 L 59 L Respiratory Rate 17 16 17 Blood Pressure Pulse Oximetry 98 98 98 Oxygen Delivery Method 10/06/23 03:00 10/06/23 03:03 10/06/23 03:03 Temperature Pulse Rate 65 Respiratory Rate 21 Blood Pressure 80/52 L 94/50 L Pulse Oximetry 99 Oxygen Delivery Method 10/06/23 03:30 10/06/23 04:00 10/06/23 04:00 Temperature 97.4 F L Pulse Rate 59 L 60 Respiratory Rate 24 21 Blood Pressure 84/52 L Pulse Oximetry 99 99 Oxygen Delivery Method 10/06/23 04:00 Temperature Pulse Rate Respiratory Rate Blood Pressure Pulse Oximetry Oxygen Delivery Method Room Air Oxygen Delivery Method Room Air Oxygen Flow Rate 0 Narrative Exam Narrative: Sedated, NAD Lungs clear and normal effort. Heart, regular without murmur, gallop, or rub. Abdomen soft. ND. No leg edema. Objective Labs 10/04/23 05:40 10/04/23 14:15 [facility] Medical History Cognitive deficits Chronic hyponatremia Left elbow fracture Broken neck Multiple falls Cervical spondylosis with myelopathy Marijuana dependence Osteoarthritis Memory loss Osteoarthrosis Epilepsy, unspecified, not intractable, without status epilepticus Alcohol dependence, uncomplicated Surgical History History of neck surgery History of back surgery H/O foot surgery H/O thumb surgery History of esophagogastroduodenoscopy (EGD) History of colonoscopy Family History Father Cancer Aneurysm Mother Cancer Social History marital status: unknown household members: none lives independently: Yes housing: other ([facility]) Smoking Status: Current every day smoker alcohol intake: current Assessment & Plan Assessment & Plan narrative: 1. Alcohol Withdrawal, present on admission and active. - more severe as of 10/04. Started on Precedex. 2. NSVT, new and improved. - improved with amiodarone load and infusion. 3. Severe alcohol use disorder, present on admission and active. 4. Epilepsy, present on admission and active. - Dilantin - level therapeutic 5. Hyponatremia, present on admission and active. - chronic, likely related to beer drinking - monitored electrolytes - NS 6. 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 - recent Rt arm injury - fall risk 7. HTN, present on admission and active. - Norvasc 8. Arm Laceration / Injury, present on admission and active. - Keflex PLAN: -continue CIWA protocol, Precedex. -light and Precedex today and start Librium 25 t.i.d. -continue saline infusion. -start amiodarone PO 400 mg daily today. This can be a short-term taper over several weeks with Cardiology follow up for his ventricular tachycardia and normal echo. -monitor on tele (No VT overnight) MILES: 10/07-10/08. Depending on resolution of symptoms. Time-Based Coding :: 30 min spent with patient and on the chart (including review of chart, obtaining history, exam, reviewing outside data, placing orders, documenting exam and treatment plan, and counseling patient) on 10/05.
[2023-10-06] MEDS: chlordiazePOXIDE 25 MG CAPSULE PO ×3 (09:58→21:18)
[2023-10-06] MEDS: cephALEXin 250 MG CAPSULE 500 MG PO ×2 (10:00→15:21)
[2023-10-06] MEDS: FOLIC ACID 1 MG TABLET PO (10:03)
[2023-10-06] MEDS: MULTIVITAMIN 1 TABLET 1 TAB PO (10:04)
[2023-10-06] MEDS: THIAMINE 100 MG TABLET PO (10:04)
--- NOTE | 2023-10-06 10:29 | P.DS_ITS ---
History of Present Illness History of Present Illness Chief complaint: sent by PCP, generalized weakness Discharge Providers Provider Date of admission: 10/03/23 22:15 Primary care physician: Noris Shipley MD Discharge provider: Federico Azar MD Exam Vital Signs (past 8 hours): - 10/06/23 02:30 10/06/23 03:00 10/06/23 03:00 Temperature Pulse Rate 57 L 59 L Respiratory Rate 16 17 Blood Pressure 80/52 L Pulse Oximetry 98 98 Oxygen Delivery Method 10/06/23 03:03 10/06/23 03:03 10/06/23 03:30 Temperature Pulse Rate 65 59 L Respiratory Rate 21 24 Blood Pressure 94/50 L Pulse Oximetry 99 99 Oxygen Delivery Method 10/06/23 04:00 10/06/23 04:00 10/06/23 04:00 Temperature 97.4 F L Pulse Rate 60 Respiratory Rate 21 Blood Pressure 84/52 L Pulse Oximetry 99 Oxygen Delivery Method Room Air 10/06/23 04:11 10/06/23 04:11 10/06/23 04:30 Temperature Pulse Rate 60 55 L Respiratory Rate 23 19 Blood Pressure 96/58 L Pulse Oximetry 98 98 Oxygen Delivery Method 10/06/23 05:00 10/06/23 05:00 10/06/23 05:30 Temperature Pulse Rate 54 L 56 L Respiratory Rate 18 19 Blood Pressure 91/54 L Pulse Oximetry 99 99 Oxygen Delivery Method 10/06/23 06:00 10/06/23 06:01 10/06/23 06:01 Temperature Pulse Rate 58 L 57 L Respiratory Rate 19 18 Blood Pressure 83/49 L Pulse Oximetry 100 99 Oxygen Delivery Method 10/06/23 06:27 10/06/23 06:27 10/06/23 06:30 Temperature Pulse Rate 55 L 52 L Respiratory Rate 21 18 Blood Pressure 100/58 L Pulse Oximetry 98 98 Oxygen Delivery Method 10/06/23 07:00 10/06/23 07:00 10/06/23 07:30 Temperature Pulse Rate 52 L 66 Respiratory Rate 22 22 Blood Pressure 95/63 Pulse Oximetry 99 99 Oxygen Delivery Method 10/06/23 08:00 Temperature 97.4 F L Pulse Rate Respiratory Rate Blood Pressure Pulse Oximetry Oxygen Delivery Method Oxygen Delivery Method Room Air Oxygen Flow Rate 0 Objective Labs 10/04/23 05:40 10/04/23 14:15 [facility] Medical History Cognitive deficits Chronic hyponatremia Left elbow fracture Broken neck Multiple falls Cervical spondylosis with myelopathy Marijuana dependence Osteoarthritis Memory loss Osteoarthrosis Epilepsy, unspecified, not intractable, without status epilepticus Alcohol dependence, uncomplicated Surgical History History of neck surgery History of back surgery H/O foot surgery H/O thumb surgery History of esophagogastroduodenoscopy (EGD) History of colonoscopy Family History Father Cancer Aneurysm Mother Cancer Social History marital status: unknown household members: none lives independently: Yes housing: other ([facility]) Smoking Status: Current every day smoker alcohol intake: current Discharge Plan Discharge orders & Medications Prescriptions: No Action phenytoin sodium extended [Dilantin Extended] 100 mg capsule 500 mg PO 1200,2100 Patient Comments: 1 cap in the morning, 2 at noon and 2 at night. cephalexin 500 mg capsule 500 mg PO Q8H Qty: 21 0RF amlodipine 5 mg tablet 5 mg PO DAILY Qty: 30 2RF Follow up/Referrals: Noris Shipley MD [Primary Care Provider] - Discharge Data Primary Care Provider: Noris Shipley
[2023-10-06] MEDS: PHENYTOIN ER 100 MG CAPSULE 500 MG PO ×2 (11:48→21:20)
[2023-10-06] MEDS: TAMSULOSIN 0.4 MG CAPSULE PO (11:48)
--- NOTE | 2023-10-06 18:40 | PC.NURSE ---
Patient's CIWA WNL today, see chart. Patient remains confused, but is cooperative today and easily reoriented. Patient knows his name, birthday and his age. Patient started on oral librium as ordered, precedex was titrated down this morning as patient was sleepy with bradycardia and hypotension (precedex paused at 1130, see EMAR), Dr Azar aware and states will improve as precedex lowered as tolerated. Patient able to urinate in condom catheter today with reminders. Remains generalized weakness, and assisting to turn and reposition in bed. Refused all meals today, ate 1.5 containers of applesauce and drank his water and some clear ensure when encouraged. IV fluids infusing as ordered. Bed alarm on for safety. Seizure precautions maintained.
[2023-10-07] VITALS (21 sets, daily range): BP systolic 112–173; BP diastolic 58–102; PULSE 45–105; RESP 15–23; TEMP 36.5–37.1; O2SAT 87–100
[2023-10-07] MEDS: cephALEXin 250 MG CAPSULE 500 MG PO ×4 (01:25→23:55)
[2023-10-07] MEDS: LORazepam 2 MG/ML INJ IV (04:18)
[2023-10-07] MEDS: SODIUM CHLORIDE 0.9% 1,000 ML 125 ML IV (04:53)
[2023-10-07] MEDS: FOLIC ACID 1 MG TABLET PO (08:36)
[2023-10-07] MEDS: MULTIVITAMIN 1 TABLET 1 TAB PO (08:36)
[2023-10-07] MEDS: chlordiazePOXIDE 25 MG CAPSULE PO ×3 (08:36→20:53)
[2023-10-07] MEDS: TAMSULOSIN 0.4 MG CAPSULE PO (08:36)
[2023-10-07] MEDS: THIAMINE 100 MG TABLET PO (08:36)
[2023-10-07] MEDS: AMLODIPINE 5 MG TABLET PO (08:37)
[2023-10-07] MEDS: PHENYTOIN ER 100 MG CAPSULE 500 MG PO ×2 (13:12→20:53)
--- NOTE | 2023-10-07 15:15 | CM.DPC ---
DCP Cont: Per MD, pt now off Precedex and on oral librium and will order PT/OT to begin working with pt. PT/OT ordered and pending. Per RN, pt had local supportive friend Mo bedside this morning who confirmed that he is basically the only person that checks in on patient and provides support and willing to be involved in discharge planning. SW met bedside with pt and explained role and pt alert and oriented and able to answer appropriately and PT/OT have not been able to work with pt yet today. Pt confirms his preference would be to d/c back to his apartment and would still be agreeable with HH ([facility] has accepted, F2F scanned). SW discussed if pt too weak or needing more assist, then SNF would be recommended. Pt states I would have to think about that to see if I would agree to that or not. Pt hopeful to work with PT/OT and get stronger for home. Plan: SW to follow closely for PT/OT eval and recommendations to determine possible SNF (although pt's ETOH could be a barrier) vs home with [facility]. Previous SW faxed completed Medicaid LTC application to [facility]. Mercedes Cali, MAIL HANDLER SORTER
--- NOTE | 2023-10-07 15:22 | PT.IIE ---
Current Diagnoses Hypo-osmolality and hyponatremia (10/03/23) Alcohol use, unspecified with withdrawal, uncomplicated (10/03/23) Other abnormalities of gait and mobility (10/03/23) Other symptoms and signs involving cognitive functions and awareness (10/03/23) Surgical History (Last Reviewed 10/04/23 @ 07:59 by Federico Azar MD) H/O foot surgery H/O thumb surgery History of back surgery History of colonoscopy History of esophagogastroduodenoscopy (EGD) History of neck surgery Medical History (Last Reviewed 10/04/23 @ 07:59 by Federico Azar MD) Alcohol dependence, uncomplicated Broken neck Cervical spondylosis with myelopathy Chronic hyponatremia Cognitive deficits Epilepsy, unspecified, not intractable, without status epilepticus Left elbow fracture Marijuana dependence Memory loss Multiple falls Osteoarthritis Osteoarthrosis Physical Therapy Inpatient Evaluation/Re-Eval M1 PT/OT-IP Prior Functional Status Start: 10/07/23 17:06 Freq: NEEDED Status: Active Protocol: Document 10/07/23 15:22 AB (Rec: 10/07/23 17:21 AB [id number]) Medical Review Prior Functional Status Medical History Reviewed Yes Communication with confusion; not consistent with answering questions; needed time to process and respond to questions and instructions Mobility and Gait pt tated that he was independent with all mobilities and ambulation without AD Social History Household Members none Living Arrangements Apartment/Condo Number of Floors (Floors) One Floor Number of Stairs To Enter/Railing? pt stays on a 3rd floor apartment with access to an elevator Home Environment Standard Height Toilet,Walk in Shower Home Equipment Front Wheel Walker,Straight Cane,Hand Held Shower,Grab Bars Near Toilet,Grab Bars In Shower Additional Social History Comment pt stated that his friends Mariano and Glen assists him with meals M2 PT-IP Current Condition Start: 10/07/23 17:06 Freq: NEEDED Status: Active Protocol: Document 10/07/23 15:22 AB (Rec: 10/07/23 17:21 AB [id number]) Physical Therapy Current Condition Current Condition Evaluation Date 10/07/23 Treatment Diagnosis alcohol withdrawal; difficulty in walking Onset Date 10/03/23 M3 PT-IP Subjective Start: 10/07/23 17:06 Freq: NEEDED Status: Active Protocol: Document 10/07/23 15:22 AB (Rec: 10/07/23 17:21 AB [id number]) Subjective Physical Therapy Visit Type Type Initial Evaluation Visit Start Time 15:22 Visit Stop Time 15:55 Number of MANAGER EXPRESS Visits 0 Physical Therapy Visit Comments Patient Comments needs encouragement to participate M4 PT-IP Mobility and Gait Start: 10/07/23 17:06 Freq: NEEDED Status: Active Protocol: Document 10/07/23 15:22 AB (Rec: 10/07/23 17:21 AB [id number]) PT-Bed Mobility Assessment Supine to Sit Supine to Sit Maximum Assistance,1 Person Assistance,2 Person Assistance ,Head of Bed Elevated,Bedrails Scooting Scooting to Edge of Bed Maximum Assistance PT-Transfer Assessment Sit to and From Stand Sit to and from Stand Maximum Assistance,2 Person Assistance,Use of Upper Extremities Equipment Transfer Assistive Device Gait Belt,Front Wheeled Walker Orthotic/Prosthetic Devices or Brace: No Transfers Transfer Destination Chair Transfer Technique Stand Pivot Transfer Ability Level of Assist Maximum Assistance,2 Person Assistance,Use of Upper Extremities Comments Mobility Comments pt supine in bed. obtained PLOF and home set up. pt needs encouragement to participate in PT. BP: 168/81 O2 sat 100 completed supine to sit max Ax 1-2 and max cues with HOB elevated. increase posterior lean needing max A for sitting balance. BPL: 158/68 max Ax 2 for scooting to EOB. completed sit to stand max A x 2 and max cues. (+) R sided tremors noted. pt completed stand pivot transfer using FWW max A x 2 and max cues. required assist to move body and LE to pivot. pt with difficulty following directions and has decrease safety awareness. positioned pt on the chair. call light and table placed within reach. NAC will get a chair alarm for pt. informed nurse regarding pt's mobility and use of mechanical lift for transfers. Gait Assessment Comments Gait Comments unable at this time PT-Balance Assessment Sitting Balance and Reactions Static Sitting Balance Ability Poor Dynamic Sitting Balance Ability Poor Standing Balance and Reactions Static Standing Balance Ability Poor Dynamic Standing Balance Ability Poor Device Used FWW M5 PT-IP Objective Assessments Start: 10/07/23 17:06 Freq: NEEDED Status: Active Protocol: Document 10/07/23 15:22 AB (Rec: 10/07/23 17:21 AB [id number]) Orientation Orientation/Cognition Level of Alertness Confusional State Orientation Name Language Function Ability Hard of Hearing Safety Awareness Decreased Safety Awareness Memory Description Short Term Impaired,Call Center Manager Impaired Gross Range of Motion Lower Extremity ROM Assessment Within Functional Limits Strength Lower Extremity Strength Assessment Bilaterally Impaired Hip 3+/5 Knee 3+/5 M6 PT-IP Treatment Start: 10/07/23 17:06 Freq: NEEDED Status: Active Protocol: Document 10/07/23 15:22 AB (Rec: 10/07/23 17:21 AB [id number]) Physical Therapy Treatment Education Education Provided Safety M7 PT-IP Assessment and Plan Start: 10/07/23 17:06 Freq: NEEDED Status: Active Protocol: Document 10/07/23 15:22 AB (Rec: 10/07/23 17:21 AB [id number]) PT Summary Assessment and Plan Potential Rehabilitation Potential Fair Status of Condition at Evaluation Evolving Summary Impairments Pain,ROM,Strength,Balance, Coordination,Sensation,Tone, Cognition,Bed Mobility, Transfers,Gait,Activity Tolerance Assessment Summary pt is a 67 y/o M who is admitted for alcohol withdrawal. pt also has dx Wernicke-Korsakoff syndrome affecting following directions and safety awareness. pt requiring max A x 2 and max cues with all mobilities and unable to ambulate at this time. recommending mechanical lift transfers with nursing staff. will continue to assess. pt will require 24/7 assist and will benefit from SNF rehab. Goals Bed Mobility Goal Minimal Assistance Transfer Goal Minimal Assistance,Front Wheeled Walker Gait Goal Minimal Assistance,Front Wheel Walker Gait Distance 100 Other Goals improve bed mobility, transfers, ambulation using FWW ~ 200 ft SBA Days to Meet Goals 10 Frequency of Treatment Frequency Of Treatment Once a Day Treatment Plan Physical Therapy Treatment Plan Bed Mobility Training,Transfer Training,Gait Training, Therapeutic Exercise,Balance Retraining,Post Op Education, Discharge Planning,Hot or Cold Pack,Neuromuscular Re-ed, Coordination Retraining,Manual Therapy Precautions Other Precautions falls Recommendations To Nursing Amount of Assist Needed Mechanical Lift Discharge Recommendations PT Discharge Recommendations SNF Rehab Transportation Needs at Discharge Wheelchair/Cabulance,Stretcher /Ambulance
--- NOTE | 2023-10-07 17:18 | PM.PN.1 ---
Subjective Subjective Interval history: Now off precedex, downgraded from ICU. Ordered for therapy, did ramp up overnight and became more confused will try seroquel though may be a bit less effective with his phenytoin. Exam Vital Signs (past 8 hours): - 10/07/23 12:00 10/07/23 16:00 Pulse Rate 89 94 H Respiratory Rate 17 20 Blood Pressure 135/68 154/81 H Pulse Oximetry 100 98 Oxygen Flow Rate 0 0 Oxygen Delivery Method Room Air Oxygen Flow Rate 0 Narrative Exam Narrative: NAD Lungs clear and normal effort. Heart, regular without murmur, gallop, or rub. Abdomen soft. ND. No leg edema. No tremors or tongue fasciculations today. Objective Labs 10/04/23 05:40 10/04/23 14:15 [facility] Medical History Cognitive deficits Chronic hyponatremia Left elbow fracture Broken neck Multiple falls Cervical spondylosis with myelopathy Marijuana dependence Osteoarthritis Memory loss Osteoarthrosis Epilepsy, unspecified, not intractable, without status epilepticus Alcohol dependence, uncomplicated Surgical History History of neck surgery History of back surgery H/O foot surgery H/O thumb surgery History of esophagogastroduodenoscopy (EGD) History of colonoscopy Family History Father Cancer Aneurysm Mother Cancer Social History marital status: unknown household members: none lives independently: Yes housing: other ([facility]) Smoking Status: Current every day smoker alcohol intake: current Assessment & Plan Assessment & Plan narrative: 1. Alcohol Withdrawal, present on admission and active with acute encephalopathy - more severe as of 10/04 and was started on precedex. Now off. Continue librium, wean over the next day or so. - seroquel 25 mg at night given worsening symptoms at night, may have a chronic cognitive impairment at baseline in review of prior documentation, though maintained decisional capacity before. 2. NSVT, new and improved. - improved with amiodarone load and infusion but no recurrence thus far. Will continue to monitor, likely in setting of alcohol withdrawal. Consider beta zuleima if hypertension persists. 3. Severe alcohol use disorder, present on admission and active. 4. Epilepsy, present on admission and active. - Dilantin - level therapeutic 5. Hyponatremia, present on admission and active. - chronic, likely related to beer drinking - monitored electrolytes - NS 6. 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 - recent Rt arm injury - fall risk 7. HTN, present on admission and active. - Norvasc 8. Arm Laceration / Injury, present on admission and active. - Keflex PLAN: -continue CIWA protocol, ativan per protocol. Now off precedex. -decrease librium to BID for 2 more doses then stop. -continue saline infusion. -was on amiodarone, now off will stop unless recurrent SVT and had been held multiple times previously. -will stop tele today with no recurrence. MILES: start PT/OT, may need SNF. Time-Based Coding :: [TOTAL MINUTES] spent with patient and on the chart (including review of chart, obtaining history, exam, reviewing outside data, placing orders, documenting exam and treatment plan, and counseling patient) on [DATE].
[2023-10-07] MEDS: QUETIAPINE 25 MG TABLET PO (20:53)
[2023-10-08] VITALS (11 sets, daily range): BP systolic 156–171; BP diastolic 91–99; PULSE 88–93; RESP 19–22; TEMP 36.2–36.6; O2SAT 86–99
[2023-10-08 05:52] LABS: Add Manual Diff / Slide Review NO; Basophils Absolute Auto 0 /uL (0-100); Basophils Percent Auto 0.8 % (0-2); Eosinophils Absolute Auto 100 /uL (0-450); Eosinophils Percent Auto 2.1 % (2-4); Hematocrit 32.4 % (41-53); Hemoglobin 11.3 g/dL (13.5-17.5); Lymphocytes Absolute Auto 900 /uL (1100-4500); Lymphocytes Percent Auto 16.8 % (25-40); Mean Corpuscular HGB Conc 34.9 % (30-36); Mean Corpuscular Hemoglobin 33.6 PG (26-34); Mean Corpuscular Volume 96.3 fL (80-100); Monocytes Absolute Auto 600 /uL (0-900); Monocytes Percent Auto 10.6 % (3-14); Neutrophils Absolute Auto 3700 /uL (1500-7000); Neutrophils Percent Auto 69.7 % (50-75); Platelet Count 127 X10^3/uL (150-400); Red Blood Cell Count 3.36 X10^6/uL (4.5-5.9); Red Cell Distribution Width 14.2 % (11.6-14.8); White Blood Cell Count 5.4 X10^3/uL (4.5-11.0)
[2023-10-08 06:02] LABS: Alanine Aminotransferase 9 IU/L (<50); Albumin 2.5 g/dL (3.5-5.0); Albumin Globulin Ratio 0.8 (1.0-2.8); Alkaline Phosphatase 138 U/L (38-126); Aspartate Aminotransferase 21 IU/L (17-59); Bilirubin Total 0.6 mg/dL (0.2-1.3); Calcium 7.6 mg/dL (8.4-10.2); Carbon Dioxide 17 mmol/L (22-32); Chloride 107 mmol/L (98-107); Estimated Glomerular Filt Rate > 60 mL/min (>60); Glucose 114 mg/dL (80-110); HEMOLYSIS < 15 (0-50); Magnesium 1.5 mg/dL (1.6-2.3); Potassium 3.1 mmol/L (3.4-5.1); Sodium 129 mmol/L (137-145); Total Protein 5.5 g/dL (6.3-8.2)
[2023-10-08 06:19] LABS: BUN Creatinine Ratio 4.8 (6-22); Blood Urea Nitrogen < 2 mg/dL (9-20)
--- NOTE | 2023-10-08 06:47 | PC.NURSE ---
security shift manager RN note pt alert, oriented to self, place and situation, remains restless kicking legs out over siderails and states he sees his dog in the room, bed alarm on, siezure precautions maintained, CIWA 5-8, pt slept in small stretches overnight, unable to void, bladder scans >350ml, x2 straight cath done for clear yellow urine, pt did not tolerate well attempting to kick and swat away staff during procedures, pt appeared more calm and resting after each cath.
[2023-10-08] MEDS: cephALEXin 250 MG CAPSULE 500 MG PO ×2 (08:23→16:06)
[2023-10-08] MEDS: MULTIVITAMIN 1 TABLET 1 TAB PO (08:23)
[2023-10-08] MEDS: TAMSULOSIN 0.4 MG CAPSULE PO (08:23)
[2023-10-08] MEDS: AMLODIPINE 5 MG TABLET PO (08:23)
[2023-10-08] MEDS: chlordiazePOXIDE 25 MG CAPSULE PO (08:23)
[2023-10-08] MEDS: FOLIC ACID 1 MG TABLET PO (08:23)
[2023-10-08] MEDS: POTASSIUM CHLORIDE 20 MEQ TAB 40 MEQ PO ×2 (10:13→16:06)
[2023-10-08] MEDS: MAGNESIUM CHLORIDE 64 MG TABLET 128 MG PO (10:13)
--- NOTE | 2023-10-08 10:30 | PT.IPTN ---
Current Diagnoses Hypo-osmolality and hyponatremia (10/03/23) Alcohol use, unspecified with withdrawal, uncomplicated (10/03/23) Other abnormalities of gait and mobility (10/03/23) Other symptoms and signs involving cognitive functions and awareness (10/03/23) Physical Therapy Treatment Note M2 PT-IP Current Condition Start: 10/07/23 17:06 Freq: NEEDED Status: Active Protocol: Document 10/07/23 15:22 AB (Rec: 10/07/23 17:21 AB [id number]) Physical Therapy Current Condition Current Condition Evaluation Date 10/07/23 Treatment Diagnosis alcohol withdrawal; difficulty in walking Onset Date 10/03/23 M3 PT-IP Subjective Start: 10/07/23 17:06 Freq: NEEDED Status: Active Protocol: Document 10/08/23 10:30 AB (Rec: 10/08/23 17:28 AB [id number]) Subjective Physical Therapy Visit Type Type Treatment Note Visit Start Time 10:30 Visit Stop Time 10:46 Number of PLAYGROUND MONITOR Visits 0 Physical Therapy Visit Comments Patient Comments need encouragement to do PT M4 PT-IP Mobility and Gait Start: 10/07/23 17:06 Freq: NEEDED Status: Active Protocol: Document 10/08/23 10:30 AB (Rec: 10/08/23 17:28 AB [id number]) PT-Bed Mobility Assessment Supine to Sit Supine to Sit Maximum Assistance,2 Person Assistance,Head of Bed Elevated,Bedrails PT-Transfer Assessment Sit to and From Stand Sit to and from Stand Maximum Assistance,1 Person Assistance,2 Person Assistance ,Use of Upper Extremities Equipment Transfer Assistive Device Gait Belt,Front Wheeled Walker Orthotic/Prosthetic Devices or Brace: No Transfers Transfer Destination Chair Transfer Technique Stand Pivot Transfer Ability Level of Assist Maximum Assistance,Total Assistance,2 Person Assistance ,Use of Upper Extremities Comments Mobility Comments pt supine in bed. initially agreed to get up but midway PT session, stated that he wants to go back to bed. pt needs encouragement to continue. pt completed supine to sit max A x 2 and max cues. max A for seated balance. increase posterior leaning. pt with difficulty following directions and needs motivation to participate and continue with task. completed sit to stand max A x 2 and max cues and stand pivot transfer to chair max A x 2 to total A x 2 and max cues. total A x 2 for positioning on the chair. Left pt with OT. M5 PT-IP Objective Assessments Start: 10/07/23 17:06 Freq: NEEDED Status: Active Protocol: Document 10/07/23 15:22 AB (Rec: 10/07/23 17:21 AB [id number]) Orientation Orientation/Cognition Level of Alertness Confusional State Orientation Name Language Function Ability Hard of Hearing Safety Awareness Decreased Safety Awareness Memory Description Short Term Impaired,Correction Impaired Gross Range of Motion Lower Extremity ROM Assessment Within Functional Limits Strength Lower Extremity Strength Assessment Bilaterally Impaired Hip 3+/5 Knee 3+/5 M6 PT-IP Treatment Start: 10/07/23 17:06 Freq: NEEDED Status: Active Protocol: Document 10/08/23 10:30 AB (Rec: 10/08/23 17:28 AB [id number]) Physical Therapy Treatment Education Education Provided Safety M7 PT-IP Assessment and Plan Start: 10/07/23 17:06 Freq: NEEDED Status: Active Protocol: Document 10/08/23 10:30 AB (Rec: 10/08/23 17:28 AB [id number]) PT Summary Assessment and Plan Potential Rehabilitation Potential Fair Summary Impairments Pain,ROM,Strength,Balance, Coordination,Sensation,Tone, Cognition,Bed Mobility, Transfers,Gait,Activity Tolerance Progress Towards Goals Slow Progress due to Medical Issues,Slow Progress due to Activity Tolerance,Slow Progress - Other Assessment Summary pt requiring max A x 2 to total A x 2 with mobility and needs increase encouragemen to participate. pt has cognitive issues affecting following directions and safety awareness. will continue to assess. at this time, pt will benefit from SNF rehab. Goals Bed Mobility Goal Minimal Assistance Transfer Goal Minimal Assistance,Front Wheeled Walker Gait Goal Minimal Assistance,Front Wheel Walker Gait Distance 100 Other Goals improve bed mobility, transfers, ambulation using FWW ~ 200 ft SBA Days to Meet Goals 10 Frequency of Treatment Frequency Of Treatment Once a Day Treatment Plan Physical Therapy Treatment Plan Bed Mobility Training,Transfer Training,Gait Training, Therapeutic Exercise,Balance Retraining,Post Op Education, Discharge Planning,Hot or Cold Pack,Neuromuscular Re-ed, Coordination Retraining,Manual Therapy Precautions Other Precautions falls Recommendations To Nursing Amount of Assist Needed Mechanical Lift Discharge Recommendations PT Discharge Recommendations SNF Rehab Transportation Needs at Discharge Wheelchair/Cabulance,Stretcher /Ambulance
--- NOTE | 2023-10-08 10:57 | DIET.CONS ---
Dietary Consultation Note Admission Date: 10/03/2023 22:15 Assessment: 67 y M admitted for alcohol withdrawal. Nutrition screened for LOS. Attempted visit, pt working with therapy. EMR reviewed. PMH of alcohol use disorder reporting drinking 9 beers daily. Pt w/ <25% recorded po intakes for 5 days, CIWA score 14 upon admission, 5-[address] consult in April noted pt goes 1-4 days without eating sometimes and pt reported has not eaten during previous hospitalizations elsewhere as well. Diet recall from April: 1 meal/day of pizza and beer Ht: 177.8 cm Wt: 63.503 kg BMI: 20.0 UBW: 65.364 kg on 09/11/23, 69.636 kg on 03/13/23, non-severe weight loss Last BM: 10/02/23 (10/03/23 23:22) MNA: Vaughn Score: 15 Diet: 10/04/23 Breakfast General (Regular) Diet Diet Modifications: Nutrition Percent Meal Consumed 0% 10/07/23 18:00 Percent Meal Consumed 0% 10/07/23 09:00 Percent Meal Consumed 10 10/06/23 15:40 Labs: RBC 3.36 X10^6/uL (4.5-5.9) L 10/08/23 04:15 Hgb 11.3 g/dL (13.5-17.5) L 10/08/23 04:15 Hct 32.4 % (41-53) L 10/08/23 04:15 Creatinine 0.42 mg/dL (0.66-1.25) L 10/08/23 04:15 NT-Pro-B Natriuret Pep 489 pg/mL (<125) H 10/03/23 17:00 Nutrition Diagnosis: Inadequate oral intake r/t decreased ability to consume adequate intake aeb report of excessive alcohol intake, alcohol withdrawal w/ <25% recorded po intakes for 5 days Interventions: 1. Will continue to offer sufficient meals to meet pt's EER, unit host continues to coordinate pt's preferences as able EER: [id number] kcals (30 kcals/kg per BMI) 65-70 g protein (1 g/kg per age) Monitoring/Evaluations: po intakes Electronically Signed by: Yareli Pinto 10/08/23 10:[address] [address]
--- NOTE | 2023-10-08 11:49 | PC.NURSE ---
Addendum entered by Kristi Lowery R.N. 10/08/23 13:27: Patient became restless in recliner wanting to get up. Offered urinal and put in place, patient unable to void. Bladder scan for 600-700 estimated, order obtained for garay d/t repeated straight caths and patient's inability to void on his own. Some resistance noted on placement, patient required assistance from another RN d/t agitation from placement. Got 675cc out immediately of clear alberto urine, patients restlessness and agitation appeared to resolve. Original Note: Assumed care of patient at 0700. Patient alert to self, situation and year, stated it was April for month. Requires prompting for questions several times before answering, requires prompting and encouraging to swallow pills. Patient with weakness throughout all extremities, required this RN to hold water to mouth for prolonged medication pass d/t prompting to swallow. Safe swallow, no coughing or distress noted. Patient cooperative with care. Legs are in a constant state of motion both in bed and in recliner. Per PT evaluation, safest transfer is with [facility].
[2023-10-08] MEDS: PHENYTOIN ER 100 MG CAPSULE 500 MG PO ×2 (12:08→21:31)
--- NOTE | 2023-10-08 12:52 | OT.IP.EVAL ---
Current Diagnoses Hypo-osmolality and hyponatremia (10/03/23) Alcohol use, unspecified with withdrawal, uncomplicated (10/03/23) Other abnormalities of gait and mobility (10/03/23) Other symptoms and signs involving cognitive functions and awareness (10/03/23) Past Medical History (Last Reviewed 10/04/23 @ 07:59 by Federico Azar MD) Alcohol dependence, uncomplicated Broken neck Cervical spondylosis with myelopathy Chronic hyponatremia Cognitive deficits Epilepsy, unspecified, not intractable, without status epilepticus Left elbow fracture Marijuana dependence Memory loss Multiple falls Osteoarthritis Osteoarthrosis Surgical History (Last Reviewed 10/04/23 @ 07:59 by Federico Azar MD) H/O foot surgery H/O thumb surgery History of back surgery History of colonoscopy History of esophagogastroduodenoscopy (EGD) History of neck surgery Occupational Therapy Inpatient Evaluation/Re-Eval M1 PT/OT-IP Prior Functional Status Start: 10/07/23 17:06 Freq: NEEDED Status: Active Protocol: Document 10/08/23 12:09 DANTE (Rec: 10/08/23 12:52 STEPANIAHAMIDA [id number]) Medical Review Prior Functional Status Medical History Reviewed Yes Communication with confusion; not consistent with answering questions; needed time to process and respond to questions and instructions Mobility and Gait pt stated that he was independent with all mobilities and ambulation without AD Activities of Daily Living and IADL's pt stated that he bathed himself in the shower about once a week. pt does not drive . pt uses the microwave for meals or has friends Mariano and Glen bring meals. Social History Household Members none Living Arrangements Apartment/Condo Number of Floors (Floors) One Floor Number of Stairs To Enter/Railing? pt stays on a 3rd floor apartment with access to an elevator Home Environment Standard Height Toilet,Walk in Shower Home Equipment Front Wheel Walker,Straight Cane,Hand Held Shower,Grab Bars Near Toilet,Grab Bars In Shower M2 OT-IP Current Condition Start: 10/08/23 12:09 Freq: Status: Active Protocol: Document 10/08/23 12:09 DANTE (Rec: 10/08/23 12:52 STEPANIAHAMIDA [id number]) Occupational Therapy Current Condition Current Condition Evaluation Date 10/08/23 Treatment Diagnosis ETOH withdrawl; weakness Diagnosis Onset Date 10/03/23 M3 OT- IP Subjective and Pain Start: 10/08/23 12:09 Freq: Status: Active Protocol: Document 10/08/23 12:09 DANTE (Rec: 10/08/23 12:52 [facility] [id number]) OT- Subjective Occupational Therapy Visit Type Type Initial Evaluation Visit Start Time 10:30 Visit Stop Time 10:50 Notes Pt reclined in bed on entrance of OT/PT. Pt needed encouragement to participate. Pt attempts most tasks asked of him with encouragement. Occupational Therapy Visit Comments Patient Comments pt reports he wants to go home . OT Pain Assessment Pain When Pain Assessed During Exercise Pain Present Pain Present Pain Reported Location Neck Scale Used pt unable to rate, states my neck hurts M4 OT- IP ADL's Start: 10/08/23 12:09 Freq: Status: Active Protocol: Document 10/08/23 12:09 STEPANVICKIE (Rec: 10/08/23 12:52 [facility] [id number]) OT QVZ-Mbod-Dwmrbse General Evaluation Diet Level for Self-Feeding OT not present during meal. OT ADL-Grooming General Evaluation Grooming Ability Total Assistance Areas Needing Assistance Retrieving/Set-up of Grooming Items,Applying Deodorant, Combing/Brushing Hair,Face Washing Comments OT Grooming Comments OT handed pt a brush and asked him to comb his hair. Pt attempted to lift UE toward his head but is unable to reach. OT provided tactile support for UE, but pt was still unable to complete. OT ADL-Oral Care Comments Oral Care Comments pt declined performing. OT ADL-Dressing General Eval Upper Body Dressing Ability Total Assistance Lower Body Dressing Ability Total Assistance Comments OT Dressing Comments pt attempted to doff sock while seated in chair. pt is unable to reach sock. pt does not follow vcs to cross legs and attempt removing sock in that position. pt is not following vcs for adjust gown either. OT ADL-Toileting General Evaluation Toileting Ability Total Assistance Comments OT Toileting Comments pt currently requires total A with use of brief OT ADL-Bathing General Evaluation Bathing Ability Total Assistance Areas Needing Assistance Retrieving/Setting Up Items, Wash/Dry Face,Wash/Dry Upper Body,Wash/Dry Back,Wash/Dry Perineal Area,Wash/Dry Lower Extremities Comments OT Bathing Comments pt declined during eval. based on pts participation in other BADL pt requires total A at this time while seated in chair or bed due to decreased alertness, safety awareness, ad active participation. M5 OT- IP IADL's Start: 10/08/23 12:09 Freq: Status: Active Protocol: Document 10/08/23 12:09 DANTE (Rec: 10/08/23 12:52 [facility] [id number]) OT-Instrumental Activities of Daily Living Deficits IADL Deficits Identified Deficits Home Safety Awareness Awareness of Need for Assistance at Home Decreased Awareness Ability to Problem Solve Emergency Unable to Problem Solve Situations Medication Management Medication Management Comments pt will need assistance on d/c Money Management Money Management Comments pt may need assistance on d/c Meal Preparation Meal Preparation Comments pt will need assistance on d/c Inspector Final Assembly Mechanical Inspector Final Assembly Mechanical Comments pt will need assistance on d/c Driving Driving Comments pt does not perform. reports walking. M6 OT- IP Functional Cognition Start: 10/08/23 12:09 Freq: Status: Active Protocol: Document 10/08/23 12:09 DANTE (Rec: 10/08/23 12:52 [facility] [id number]) Cognitive Factors Limiting Selfcare Function Cognitive Ability Level of Alertness Confusional State,Lethargic Patient Orientation Name,Year Attention Span Ability Unable to Focus,Unable to Sustain Attention Ability to Follow Commands Able to Follow One Step Commands with Increased Time, Able to Follow One Step Commands with Repetition Memory Description Short Term Impaired,Assisted Impaired Safety Awareness Underestimates Need for Assistance Problem Solving Ability Needs Assist to Identify Solutions Executive Function Ability Unable to Hold Focus,Unable to Make Plans Cognitive Comments Cognitive Assessment Comments pt is very lethargic, requires frequent vcs/tcs to be alert and to interact with therapists. pt will benefit from further cognitive assessment when he is more alert. OT- Vision and Hearing OT- Hearing Assessment OT- Hearing Assessment WFL OT- Vision Assessment Visual Acuity WFL M7 OT- IP Mobility and Balance Start: 10/08/23 12:09 Freq: Status: Active Protocol: Document 10/08/23 12:09 DANTE (Rec: 10/08/23 12:52 [facility] [id number]) OT- Bed Mobility Assessment Supine to Sit Supine to Sit Assist Maximum Assistance,Total Assistance,2 Person Assistance ,Head of Bed Elevated,Bedrails Scooting Scooting to Edge of Bed Maximum Assistance,2 Person Assistance OT-Transfer Assessment Sit to and From Stand Sit to and from Stand Maximum Assistance,2 Person Assistance,Use of Upper Extremities Transfers Transfer Ability Maximum Assistance,Total Assistance,2 Person Assistance ,Use of Upper Extremities Technique Transfer Destination Chair Transfer Technique Stand Step Pivot Devices Transfer Assistive Devices Gait Belt,Front Wheeled Walker Comments Mobility Comments pt needs constant vc/tc and encouragement to participate in functional t/fs. pt needs cues to stand tall, push through his UE into FWW, and to straighten his legs. pt with difficulty following directions and decreased safety awareness. OT- Gait Assessment Comments Gait Ability Comments not assessed at this time OT- Balance Assessment Sitting Balance and Reactions Static Sitting Balance Ability Poor Dynamic Sitting Balance Ability Poor Standing Balance and Reactions Static Standing Balance Ability Poor Dynamic Standing Balance Ability Poor M8 OT- IP Objective Assessments Start: 10/08/23 12:09 Freq: Status: Active Protocol: Document 10/08/23 12:09 STEPANIAHAMIDA (Rec: 10/08/23 12:52 [facility] [id number]) OT Gross Range of Motion Upper Extremity Range of Motion ROM Impairments R UE WFL. L shoulder limited to ~45 degrees of scaption. L elbow/forearm/wrist/hand WFL OT Strength Comments Strength Comments pt does not follow commands to accurately assess MMT. through use of UEs, pt demonstrates at least 3+ for R UE and 3+ for L UE (except shoulder, shoulder approximately 2+) OT- Coordination Assessment Comments Coordination Comments pt will not follow commands to perform. unable to accurately assess. M9 OT- IP Assessment and Plan Start: 10/08/23 12:09 Freq: Status: Active Protocol: Document 10/08/23 12:09 STEPANIAHAMIDA (Rec: 10/08/23 12:52 [facility] [id number]) OT Summary Assessment and Plan Potential Rehabilitation Potential Fair Analytic Complexity at Evaluation High Summary OT Impairments Pain,Range of Motion,Strength, Balance,Coordination, Functional Cognition, Functional Mobility,Grooming, Dressing,Toileting,Bathing, Toilet Transfers,Shower Transfers,Activity Tolerance Progress Towards Goals Slow Progress due to Activity Tolerance,Slow Progress due to Cognition Assessment Summary Pt is 67 yo M who was admitted for ETOH withdrawal. Pt also presents with Wernicke- Korsakoff syndrome affecting his ability to follow directions and safety awareness. Pt required max A/ total A x2 for functional mobility, hand over hand assistance to participate in BADLs, and increased encouragement and verbal cues throughout eval. Pt will require 24/7 assist on d/c and will benefit from SNF. Skilled OT services are appropriate to address deficits and promote return towards PLOF. Goals Self-Feeding Goal Independent Grooming Goal Contact Guard Assistance Dressing Goal Minimal Assistance Toileting Goal Minimal Assistance Bathing Goal Minimal Assistance Toilet Transfer Goal Minimal Assistance Shower Transfer Goal Minimal Assistance Days to Meet Goals 15 Frequency of Treatment Frequency Of Treatment Once a Day Treatment Plan OT Treatment Plan ADL Training,Functional Cognition Training,Functional Mobility,IADL Training, Therapeutic Exercises,Patient/ Family Education,Discharge Planning Other Treatment Recommendations and Next SLUMs Treatment Focus Discharge Recommendations OT Discharge Recommendations SNF Rehab Transportation Needs at Discharge Private Vehicle,Wheelchair/ Cabulance,Stretcher/Ambulance
--- NOTE | 2023-10-08 13:56 | PM.PN.1 ---
Subjective Subjective Interval history: A bit better overnight in discussions with nurse, though ramped up after a few hours. Will increase seroquel dose. Urine sodium improving. Patient denies pain, nausea, vomiting, he does not feel hungry. Exam Vital Signs (past 8 hours): - 10/08/23 08:00 10/08/23 12:00 Temperature 97.2 F L 97.5 F L Pulse Rate 92 H 88 Respiratory Rate 22 20 Blood Pressure 171/99 H 156/98 H Pulse Oximetry 98 96 Oxygen Flow Rate 0 Oxygen Delivery Method Room Air Oxygen Flow Rate 0 Narrative Exam Narrative: NAD Lungs clear and normal effort. Heart, regular without murmur, gallop, or rub. Abdomen soft. ND. No leg edema. No tremors or tongue fasciculations today. Objective Labs 10/08/23 04:15 10/08/23 04:15 Labs: Laboratory Results - last 24 hr 10/08/23 04:15 WBC 5.4 RBC 3.36 L Hgb 11.3 L Hct 32.4 L MCV 96.3 MCH 33.6 MCHC 34.9 RDW 14.2 Plt Count 127 L Neut % (Auto) 69.7 Lymph % (Auto) 16.8 L Callahan % (Auto) 10.6 Eos % (Auto) 2.1 Baso % (Auto) 0.8 Neut # (Auto) 3700 Lymph # (Auto) 900 L Callahan # (Auto) 600 Eos # (Auto) 100 Baso # (Auto) 0 Sodium 129 L Potassium 3.1 L Chloride 107 Carbon Dioxide 17 L BUN < 2 L Creatinine 0.42 L Estimated GFR > 60 BUN/Creatinine Ratio 4.8 L Glucose 114 H Calcium 7.6 L Magnesium 1.5 L Total Bilirubin 0.6 AST 21 ALT 9 Alkaline Phosphatase 138 H Total Protein 5.5 L Albumin 2.5 L Globulin 3.0 Albumin/Globulin Ratio 0.8 L [facility] Medical History Cognitive deficits Chronic hyponatremia Left elbow fracture Broken neck Multiple falls Cervical spondylosis with myelopathy Marijuana dependence Osteoarthritis Memory loss Osteoarthrosis Epilepsy, unspecified, not intractable, without status epilepticus Alcohol dependence, uncomplicated Surgical History History of neck surgery History of back surgery H/O foot surgery H/O thumb surgery History of esophagogastroduodenoscopy (EGD) History of colonoscopy Family History Father Cancer Aneurysm Mother Cancer Social History marital status: unknown household members: none lives independently: Yes housing: other ([facility]) Smoking Status: Current every day smoker alcohol intake: current Assessment & Plan Assessment & Plan narrative: 1. Alcohol Withdrawal, present on admission and active with acute encephalopathy - more severe as of 10/04 and was started on precedex. Now off. Will take off librium today as well. - seroquel 25 mg at night given worsening symptoms at night, may have a chronic cognitive impairment at baseline in review of prior documentation, though maintained decisional capacity before. 2. NSVT, new and improved. - improved with amiodarone load and infusion but no recurrence thus far. Will continue to monitor, likely in setting of alcohol withdrawal. Consider beta zuleima if hypertension persists. 3. Severe alcohol use disorder, present on admission and active. 4. Epilepsy, present on admission and active. - Dilantin will continue 500 mg BID. - level therapeutic 5. Hyponatremia, present on admission and active. - chronic, likely related to beer drinking - monitored electrolytes - NS 6. 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 - continue PT/OT 7. HTN, present on admission and active. - Norvasc 5 to continue today. 8. Arm Laceration / Injury, present on admission and active. - Keflex x7 days. To end 10/09. PLAN: -continue CIWA protocol, ativan per protocol. Now off precedex. -now off of librium taper. -stop saline infusion today. -was on amiodarone, now off and will stop further doses unless recurrent SVT and had been held multiple times previously and occurred likely in setting of severe alcohol withdrawal. -no further events on tele, now discountinued telemetry. MILES: continue PT/OT, may need SNF. Dispo unclear, will likely take some time. Time-Based Coding :: [TOTAL MINUTES] spent with patient and on the chart (including review of chart, obtaining history, exam, reviewing outside data, placing orders, documenting exam and treatment plan, and counseling patient) on [DATE].
--- NOTE | 2023-10-08 15:23 | CM.DPNOTE ---
DCP note AIRLINE LOUNGE RECEPTIONIST reviewed EMR. Per RN, pt slow to answer during day. Oriented to self, situation, year, but not month. Per OT eval, confusion, slow to answer questions, per PT max assist, rec arya lift and SNF. Per chart, CIWAs have been 0 throughout the day. AIRLINE LOUNGE RECEPTIONIST lvm with [facility] ([phone]) to inquire if pt was already established on his case load. CM team will pursue SNF referrals tomorrow, hopeful that another day will clear up more confusion. If SNF, PASRR needed P: dc to SNF vs home with [facility], friend Mo support, Comm [facility] referral, and pending [facility] LTC [facility] vs LTC placement pending medical improvement vs accepting facility. CM team will continue to follow closely. Consider contacting [facility] DC Remote Sensing Program Manager Tashi Fox (p [phone]) or [facility] for [facility] assistance. RAFAEL Zelaya
[2023-10-08] MEDS: QUETIAPINE 25 MG TABLET 50 MG PO (21:32)
[2023-10-09] VITALS (16 sets, daily range): BP systolic 144–160; BP diastolic 74–97; PULSE 81–93; RESP 14–20; TEMP 35.8–36.6; O2SAT 88–100
[2023-10-09] MEDS: cephALEXin 250 MG CAPSULE 500 MG PO ×2 (00:32→07:57)
[2023-10-09 05:22] LABS: Calcium 7.9 mg/dL (8.4-10.2); Carbon Dioxide 17 mmol/L (22-32); Chloride 103 mmol/L (98-107); Estimated Glomerular Filt Rate > 60 mL/min (>60); Glucose 102 mg/dL (80-110); HEMOLYSIS 17 (0-50); Magnesium 1.5 mg/dL (1.6-2.3); Potassium 4.2 mmol/L (3.4-5.1); Sodium 127 mmol/L (137-145)
[2023-10-09 05:23] LABS: BUN Creatinine Ratio 5.7 (6-22); Blood Urea Nitrogen < 2 mg/dL (9-20)
[2023-10-09] MEDS: MAGNESIUM SULFATE 2 GM/50 ML PIGGYBACK IV (07:57)
[2023-10-09] MEDS: AMLODIPINE 5 MG TABLET PO (10:08)
[2023-10-09] MEDS: TAMSULOSIN 0.4 MG CAPSULE PO (10:08)
--- NOTE | 2023-10-09 11:28 | PT-IP ANOTE ---
PT and OT attempt to awaken pt. Pt is not fully arousable to calling name, sternal rub, washing face with washcloth. His eyebrows raise slightly and his eyes flutter open once. He does not follow commands to squeeze PT's hand or to move legs with assistance. Per nsg, pt is not following commands, eating or moving. He required mechanical lift for mobility. Will d/c PT at this time. Please re-order if pt awakens and can participate with skilled interventions and mobility.
--- NOTE | 2023-10-09 11:30 | OT.IPNOTE ---
Attempted to see pt for OT and pt not responsive to sternal rub, not able to follow commands to squeeze therapist's hand, and not appropriate for therapy at this time and hospitalist okayed to discharge at this time.
--- NOTE | 2023-10-09 12:09 | PC.NURSE ---
Attempted to wake patient for noon phenytoin, patient would open his eyes to voice and touch but they would close quickly. Made three attempts to wake patient with no success. Notified provider that patient is not safe at this time to swallow pills d/t inability to stay awake and that he is requiring fluids to be syringed into his mouth now as he would not drink independently from a straw. Provider acknowledged this change in condition of patient.
--- NOTE | 2023-10-09 13:26 | PM.PN.1 ---
Subjective Subjective Interval history: Much more lethargic today. Unable to obtain much history but he just feels very weak. Will stop seroquel to see if improvement. Unable to get oral medications into him today per staff. Sodium slightly worse. Exam Vital Signs (past 8 hours): - 10/09/23 08:00 10/09/23 09:00 10/09/23 12:00 Temperature 97.4 F L 96.5 F L Pulse Rate 85 83 Respiratory Rate 19 14 Blood Pressure 157/74 H 156/85 H Pulse Oximetry 98 97 Oxygen Delivery Method Room Air Oxygen Delivery Method Room Air Oxygen Flow Rate 0 Narrative Exam Narrative: NAD, very lethargic Lungs clear and normal effort. Heart, regular without murmur, gallop, or rub. Abdomen soft. ND. No leg edema. Objective Labs 10/08/23 04:15 10/09/23 04:20 Labs: Laboratory Results - last 24 hr 10/09/23 04:20 Sodium 127 L Potassium 4.2 Chloride 103 Carbon Dioxide 17 L BUN < 2 L Creatinine 0.35 L Estimated GFR > 60 BUN/Creatinine Ratio 5.7 L Glucose 102 Calcium 7.9 L Magnesium 1.5 L [facility] Medical History Cognitive deficits Chronic hyponatremia Left elbow fracture Broken neck Multiple falls Cervical spondylosis with myelopathy Marijuana dependence Osteoarthritis Memory loss Osteoarthrosis Epilepsy, unspecified, not intractable, without status epilepticus Alcohol dependence, uncomplicated Surgical History History of neck surgery History of back surgery H/O foot surgery H/O thumb surgery History of esophagogastroduodenoscopy (EGD) History of colonoscopy Family History Father Cancer Aneurysm Mother Cancer Social History marital status: unknown household members: none lives independently: Yes housing: other ([facility]) Smoking Status: Current every day smoker alcohol intake: current Assessment & Plan Assessment & Plan narrative: 1. Alcohol Withdrawal, present on admission and active with acute encephalopathy - more severe as of 10/04 and was started on precedex. Now off. Will take off librium today as well. - seroquel 25 mg at night given worsening symptoms at night, may have a chronic cognitive impairment at baseline in review of prior documentation, though maintained decisional capacity before. - will stop seroquel with worsening mentation and lethargy noted today to see if contributing. Seroquel may have been helping in alcohol withdrawal management initially but now causing his lethargy. - no fever, but if continued consider infectious workup with UA, CXR. - will start high dose IV thiamine as well for possible wernicke's with 500 mg IV TID for 3 days to see if improvement. 2. NSVT, new and improved. - improved with amiodarone load and infusion but no recurrence thus far. Will continue to monitor, likely in setting of alcohol withdrawal. Consider beta zuleima if hypertension persists. - telemetry now off with no recurrence 3. Severe alcohol use disorder, present on admission and active. - now completed withdrawal treatment. 4. Epilepsy, present on admission and active. - Dilantin will continue 500 mg BID, though needing to hold with worsening lethargy today. Consider IV alternative if seizure develops. - level therapeutic 5. Hyponatremia, present on admission and active. - chronic, likely related to beer drinking - monitored electrolytes - NS 6. 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 - continue PT/OT 7. HTN, present on admission and active. - Norvasc 5 to continue as long as he is able to swallow. 8. Arm Laceration / Injury, present on admission and active. - Keflex x6 days completed, with lethargy and inability to tolerate pills, no evidence of infection currently will stop treatments today. PLAN: -continue CIWA protocol, ativan per protocol. Now off precedex. -now off of librium taper. -stop seroquel tonight to see if improvement. FLIGHT TEST SHOP MECHANIC ordered as well, may need to wait until he is more alert. -was on amiodarone, now off and will stop further doses unless recurrent SVT and had been held multiple times previously and occurred likely in setting of severe alcohol withdrawal. -high dose IV thiamine ordered to see if improvement for possible wernicke's MILES: OT/PT have signed off for now given lethargy, if improved reconsult. Unclear disposition at this time. Case management evaluating for possible POA paperwork, consider discussion of hospice vs petroleum terminal plant operator care. Time-Based Coding :: [TOTAL MINUTES] spent with patient and on the chart (including review of chart, obtaining history, exam, reviewing outside data, placing orders, documenting exam and treatment plan, and counseling patient) on [DATE].
[2023-10-09] MEDS: THIAMINE 500 MG in SODIUM CHLORIDE 0.9% 100 ML 420 MG IV ×2 (15:23→20:16)
--- NOTE | 2023-10-09 15:38 | CM.DPNOTE ---
DCP Note RADIO PROGRAM DIRECTOR reviewed EMR. Per RN report/chart review, pt non responsive today. no safe to swallow pills. PT/OT cancelled, consider re ordering if he perks up. Per RN, changing some medications around in hopes he perks up again. Remains full code. RADIO PROGRAM DIRECTOR completed APS report (#[id number]) for self neglect in the home. RADIO PROGRAM DIRECTOR alerted Parvez Rutledge about potential need for guardianship due to lack of POA paperwork. RADIO PROGRAM DIRECTOR lvm with [facility] ([phone]) for POA paperwork. They faxed clinicals from his Dec 2022 admission, no POA paperwork. MARIELA peguero kindly agreed to scan clinicals into chart. RADIO PROGRAM DIRECTOR spoke with medical records for his PCP, Julee Bledsoe. No POA paperwork available. RADIO PROGRAM DIRECTOR met with friend Joel multiple times today. he was able to find mostly completed POA paperwork at his apartment, however unfortunately they are not legally binding due to lack of pt signature and witness signatures. RADIO PROGRAM DIRECTOR made copy nonetheless and placed behind FS for reference. RADIO PROGRAM DIRECTOR updated RADIO PROGRAM DIRECTOR Carrol on not valid POA paperwork, she wonders if the ethics committee would be interested in his not completed POA paperwork to honor those wishes?? Non completed POA paperwork lists Layo and filipe Maldonado as healthcare decision makers, and that he does not want life sustaining treatments if in a coma, permanent severe brain damage, permanent conditions requiring others to meet his ADLs, need to be on a breathing machine, severe uncontrollable pain, etc. Please reference packet behind FS for more information. RADIO PROGRAM DIRECTOR updated provider on non complete POA paperwork. DCP unclear at this time. CM team will continue to follow closely pending medical prognosis and ethic committee input. RAFAEL Zelaya
[2023-10-09] MEDS: PHENYTOIN ER 100 MG CAPSULE 500 MG PO (20:15)
[2023-10-10] VITALS (17 sets, daily range): BP systolic 105–149; BP diastolic 56–90; PULSE 62–88; RESP 15–18; TEMP 36–36.4; O2SAT 74–99
[2023-10-10 05:04] LABS: Calcium 7.9 mg/dL (8.4-10.2); Carbon Dioxide 21 mmol/L (22-32); Chloride 104 mmol/L (98-107); Estimated Glomerular Filt Rate > 60 mL/min (>60); Glucose 115 mg/dL (80-110); HEMOLYSIS < 15 (0-50); Sodium 129 mmol/L (137-145)
[2023-10-10 05:09] LABS: BUN Creatinine Ratio 5.6 (6-22); Blood Urea Nitrogen 2 mg/dL (9-20)
[2023-10-10 05:33] LABS: Magnesium 1.7 mg/dL (1.6-2.3)
[2023-10-10] MEDS: MULTIVITAMIN 1 TABLET 1 TAB PO (08:41)
[2023-10-10] MEDS: THIAMINE 500 MG in SODIUM CHLORIDE 0.9% 100 ML 420 MG IV ×3 (08:41→20:44)
[2023-10-10] MEDS: AMLODIPINE 5 MG TABLET PO (08:41)
[2023-10-10] MEDS: FOLIC ACID 1 MG TABLET PO (08:41)
[2023-10-10] MEDS: TAMSULOSIN 0.4 MG CAPSULE PO (08:41)
[2023-10-10] MEDS: DEXTROSE 5%-0.9% NS 1,000 ML 125 ML IV ×2 (09:32→16:58)
--- NOTE | 2023-10-10 11:06 | DIET.PN1 ---
Dietary Progress Note Assessment: Pt day 7 of po intakes <25%. Noted previous RD consult in April noted pt goes 1-4 days without eating sometimes and pt reported has not eaten during previous hospitalizations elsewhere as well. Discussed case with SNUFF MAKER. Will await ethic committee input. Ethic committee to determine whether nutrition support is within pt goals of care. Will continue to provide adequate meals and liquids on tray. Coordinated with kitchen/unit host. Ht: 177.8 cm Wt: 63.503 kg BMI: 20.0 Last BM: 10/02/23 (10/03/23 23:22) MNA: Vaughn Score: 14 Diet: 10/04/23 Breakfast General (Regular) Diet Diet Modifications: Nutrition Percent Meal Consumed refused breakfast 10/10/23 09:38 Labs: RBC 3.36 X10^6/uL (4.5-5.9) L 10/08/23 04:15 Hgb 11.3 g/dL (13.5-17.5) L 10/08/23 04:15 Hct 32.4 % (41-53) L 10/08/23 04:15 Creatinine 0.36 mg/dL (0.66-1.25) L 10/10/23 04:06 NT-Pro-B Natriuret Pep 489 pg/mL (<125) H 10/03/23 17:00 Electronically Signed by: Yareli Pinto 10/10/23 11:06 Clinical Dietitian [address] [address]
[2023-10-10] MEDS: PHENYTOIN ER 100 MG CAPSULE 500 MG PO (11:30)
[2023-10-10] MEDS: MAGNESIUM CHLORIDE 64 MG TABLET 128 MG PO (11:30)
--- NOTE | 2023-10-10 11:59 | DI.RAD.S_ITS ---
PROCEDURE: XR ELBOW LT 2V INDICATIONS: swollen left elbow TECHNIQUE: 3 views of the elbow were acquired. COMPARISON: [facility], CR, XR ELBOW LT MIN 3V, 04/24/2023, 14:08. FINDINGS: Bones: Diffuse osseous demineralization limits sensitivity for subtle nondisplaced fracture. Marked joint space narrowing and juxta-articular osteophytosis of the radiocapitellar and ulnotrochlear joints, similar to prior. Slightly increased lucency of the olecranon. Soft tissues: Small elbow joint effusion. No suspicious soft tissue calcifications. Vascular calcifications. Scattered punctate radiodensities. IMPRESSION: 1. Diffuse osseous demineralization limits sensitivity for subtle nondisplaced fracture. Within these limitations, no definite fracture or dislocation. If there is high clinical suspicion for a radiographically occult fracture, recommend cross-sectional imaging for further evaluation. 2. Slightly increased lucency of the olecranon which is nonspecific and could reflect sequela of osteomyelitis and or inflammation. If clinically warranted, consider an MRI for further evaluation. 3. Scattered punctate radiodensities which may reflect foreign debris. Dictated by: Paulo Seay M.D. on 10/10/2023 at 12:38 Approved by: Paulo Seay M.D. on 10/10/2023 at 12:52
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
--- NOTE | 2023-10-10 15:58 | CM.DPNOTE ---
DCP Note DRYWALLER reviewed EMR. Per RN report, pt has been more alert today but continues to not be very participatory and answer questions. Per provider report, pt doing better from potential high dose of IV thiamine and changing seroquel. Hopeful for ethics committee input on plan of care moving forward due to lack of completed POA/advance directive paperwork. DRYWALLER placed ethics committee consult and lvm on ethics chief radiation therapist line. DRYWALLER spoke with APS intake ( ). Answered questions to the best of ability. APS cash shortage investigator assigned is Jostin Guerrero. P: DCP pending medical improvement/ethics consult. Likely will need to pursue guardianship if pt continues to lack capacity. CM team will continue to follow closely. RAFAEL Zelaya
[2023-10-11] VITALS (14 sets, daily range): BP systolic 133–162; BP diastolic 76–95; PULSE 75–88; RESP 13–20; TEMP 36.1–36.4; O2SAT 96–98
[2023-10-11] MEDS: DEXTROSE 5%-0.9% NS 1,000 ML 125 ML IV ×2 (00:38→09:08)
[2023-10-11 05:32] LABS: Calcium 7.5 mg/dL (8.4-10.2); Carbon Dioxide 20 mmol/L (22-32); Chloride 107 mmol/L (98-107); Estimated Glomerular Filt Rate > 60 mL/min (>60); Glucose 158 mg/dL (80-110); HEMOLYSIS < 15 (0-50); Potassium 3.1 mmol/L (3.4-5.1); Sodium 131 mmol/L (137-145)
[2023-10-11 05:44] LABS: Magnesium 1.6 mg/dL (1.6-2.3)
[2023-10-11 06:01] LABS: BUN Creatinine Ratio 5.9 (6-22); Blood Urea Nitrogen < 2 mg/dL (9-20)
[2023-10-11] MEDS: THIAMINE 500 MG in SODIUM CHLORIDE 0.9% 100 ML 420 MG IV ×3 (09:09→20:46)
[2023-10-11] MEDS: MAGNESIUM CHLORIDE 64 MG TABLET 128 MG PO (09:22)
[2023-10-11] MEDS: POTASSIUM CHLORIDE 20 MEQ TAB 40 MEQ PO ×2 (09:22→12:18)
[2023-10-11] MEDS: TAMSULOSIN 0.4 MG CAPSULE PO (09:23)
[2023-10-11] MEDS: MULTIVITAMIN 1 TABLET 1 TAB PO (09:23)
[2023-10-11] MEDS: FOLIC ACID 1 MG TABLET PO (09:23)
[2023-10-11] MEDS: AMLODIPINE 5 MG TABLET PO (09:23)
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
[2023-10-11] MEDS: PHENYTOIN ER 100 MG CAPSULE 500 MG PO ×2 (12:17→20:57)
--- NOTE | 2023-10-11 13:27 | PC.NURSE ---
Pt arouses w/some effort. Pt refusing to eat much. Taking meds w/ applesauce. Attempted soup at lunch, pt had issues w/choking at times. Suctioned x one Friends here to visit. IVF infusing as per MD orders. Call light w/in reach. Bed alarm on for pt safety. Continue plan of care
--- NOTE | 2023-10-11 13:56 | CM.DPNOTE ---
DCP Note 1ST PRESSMAN [employer] reviewed EMR. Per hospitalist, pt becoming more alert and eating more after changing some meds around. Not quite at cognitive capacity yet but maybe within a day or so could be at capacity if continues to improve. May no longer have need for ethics consult/guardianship if pt regains capacity. [facility] O[facility] submitted 10/03. P: reorder PT/OT when medically appropriate. [facility] can currently accept, F2f completed if HH. Referrals/auth/PASRR needed if SNF. When pt has capacity, CM team will encourage pt to complete POA/Advance directive ppwk. CM team will follow closely. RAFAEL Zelaya
[2023-10-11] MEDS: ENOXAPARIN 40 MG/0.4 ML SYRINGE SUBCUT (13:57)
--- NOTE | 2023-10-11 21:08 | PC.NURSE ---
Addendum entered by Oneida Fernando R.N. 10/11/23 22:10: Suction x4 Addendum entered by Oneida Fernando R.N. 10/11/23 21:40: Pt coughing up pink-colored sputum through nose and mouth after giving oral red phenytoin capsules. Pt not tolerating PO meds, keeping NPO for now, MD aware. Original Note: NOC: Pyxis only had 200mg ([id number] caps) of prescribed 500mg ([id number] caps) on whole floor; MD informed, directed to give 200mg and follow up with pharmacy in the AM. Pt initially refused to take PO med with applesauce, but began coughing upon drinking a sip of water. Pt tolerated med in applesauce, but continued to cough. Pt could benefit from a swallow eval if not already done.
[2023-10-12] VITALS (9 sets, daily range): BP systolic 118–172; BP diastolic 63–96; PULSE 66–81; RESP 16–19; TEMP 36.2–36.4; O2SAT 83–99
[2023-10-12] MEDS: DEXTROSE 5%-0.9% NS 1,000 ML 125 ML IV ×3 (01:16→19:22)
[2023-10-12] MEDS: SCOPOLAMINE 1 PATCH TOP (03:58)
[2023-10-12 05:32] LABS: Ammonia (NH3) < 9 umol/L (9-30); Calcium 7.2 mg/dL (8.4-10.2); Carbon Dioxide 22 mmol/L (22-32); Chloride 107 mmol/L (98-107); Estimated Glomerular Filt Rate > 60 mL/min (>60); Glucose 134 mg/dL (80-110); HEMOLYSIS < 15 (0-50); Magnesium 1.4 mg/dL (1.6-2.3); Potassium 2.9 mmol/L (3.4-5.1); Sodium 131 mmol/L (137-145)
[2023-10-12 05:42] LABS: BUN Creatinine Ratio 6.3 (6-22); Blood Urea Nitrogen < 2 mg/dL (9-20)
[2023-10-12] MEDS: MAGNESIUM SULFATE 2 GM/50 ML PIGGYBACK IV (06:56)
[2023-10-12] MEDS: POTASSIUM CHLORIDE IN WATER 10 MEQ/100 ML PIGGYBACK 100 MEQ IV ×6 (07:38→12:40)
[2023-10-12 08:57] LABS: Phenytoin / Dilantin 25.5 ug/mL (10-20)
[2023-10-12] MEDS: THIAMINE 500 MG in SODIUM CHLORIDE 0.9% 100 ML 420 MG IV (09:03)
[2023-10-12] MEDS: ENOXAPARIN 40 MG/0.4 ML SYRINGE SUBCUT (09:09)
--- NOTE | 2023-10-12 09:23 | PT.IPRE ---
Current Diagnoses Hypo-osmolality and hyponatremia (10/03/23) Alcohol use, unspecified with withdrawal, uncomplicated (10/03/23) Other abnormalities of gait and mobility (10/03/23) Other symptoms and signs involving cognitive functions and awareness (10/03/23) Surgical History (Last Reviewed 10/11/23 @ 11:53 by Neo Ballesteros MD) H/O foot surgery H/O thumb surgery History of back surgery History of colonoscopy History of esophagogastroduodenoscopy (EGD) History of neck surgery Medical History (Last Reviewed 10/11/23 @ 11:53 by Neo Ballesteros MD) Alcohol dependence, uncomplicated Broken neck Cervical spondylosis with myelopathy Chronic hyponatremia Cognitive deficits Epilepsy, unspecified, not intractable, without status epilepticus Left elbow fracture Marijuana dependence Memory loss Multiple falls Osteoarthritis Osteoarthrosis Physical Therapy Inpatient Evaluation/Re-Eval M1 PT/OT-IP Prior Functional Status Start: 10/07/23 17:06 Freq: NEEDED Status: Active Protocol: Document 10/08/23 12:09 DANTE (Rec: 10/08/23 12:52 DANTE [id number]) Medical Review Prior Functional Status Medical History Reviewed Yes Communication with confusion; not consistent with answering questions; needed time to process and respond to questions and instructions Mobility and Gait pt stated that he was independent with all mobilities and ambulation without AD Activities of Daily Living and IADL's pt stated that he bathed himself in the shower about once a week. pt does not drive . pt uses the microwave for meals or has friends Mariano and Glen bring meals. Social History Household Members none Living Arrangements Apartment/Condo Number of Floors (Floors) One Floor Number of Stairs To Enter/Railing? pt stays on a 3rd floor apartment with access to an elevator Home Environment Standard Height Toilet,Walk in Shower Home Equipment Front Wheel Walker,Straight Cane,Hand Held Shower,Grab Bars Near Toilet,Grab Bars In Shower M2 PT-IP Current Condition Start: 10/07/23 17:06 Freq: NEEDED Status: Active Protocol: Document 10/07/23 15:22 AB (Rec: 10/07/23 17:21 AB [id number]) Physical Therapy Current Condition Current Condition Evaluation Date 10/07/23 Treatment Diagnosis alcohol withdrawal; difficulty in walking Onset Date 10/03/23 M3 PT-IP Subjective Start: 10/07/23 17:06 Freq: NEEDED Status: Active Protocol: Document 10/12/23 08:58 MB (Rec: 10/12/23 09:22 MB [id number]) Subjective Physical Therapy Visit Type Type Re-Evaluation Visit Start Time 08:58 Visit Stop Time 09:10 Number of PAIRER Visits 0 Physical Therapy Visit Comments Patient Comments No verbalizations and moans only M4 PT-IP Mobility and Gait Start: 10/07/23 17:06 Freq: NEEDED Status: Active Protocol: Document 10/12/23 08:58 MB (Rec: 10/12/23 09:22 MB [id number]) PT-Bed Mobility Assessment Supine to Sit Supine to Sit Total Assistance,1 Person Assistance,Head of Bed Elevated Sit to Supine Sit to Supine Total Assistance Scooting Scooting to Edge of Bed Dependent Scooting Up and Down in Bed Dependent PT-Transfer Assessment Comments Mobility Comments Pt is very lethargic and cannot keep eyes open. Moaning only during re-eval with nsg and PT nearby. Pt makes no verbalizations. Total/ dependent assistance for supine to sit and sit to supine and +2 dependent to scoot up to HOB. PT attempts to move pt's right hand to bed rail and he will not hold, no righting reactions with hands and PT attempts to slide hands out to side to maintain sitting balance. He is dependent to maintain sitting balance or he falls over to the right. PT-Balance Assessment Sitting Balance and Reactions Static Sitting Balance Ability Poor Dynamic Sitting Balance Ability Poor M5 PT-IP Objective Assessments Start: 10/07/23 17:06 Freq: NEEDED Status: Active Protocol: Document 10/12/23 08:58 MB (Rec: 10/12/23 09:22 MB [id number]) Orientation Orientation/Cognition Level of Alertness Confusional State Gross Range of Motion Upper Extremity ROM Impairments LUE appears impaired Lower Extremity ROM Impairments Pt does not tolerate range or strength testing M6 PT-IP Treatment Start: 10/07/23 17:06 Freq: NEEDED Status: Active Protocol: Document 10/08/23 10:30 AB (Rec: 10/08/23 17:28 AB [id number]) Physical Therapy Treatment Education Education Provided Safety M7 PT-IP Assessment and Plan Start: 10/07/23 17:06 Freq: NEEDED Status: Active Protocol: Document 10/12/23 08:58 MB (Rec: 10/12/23 09:22 MB [id number]) PT Summary Assessment and Plan Potential Rehabilitation Potential Poor Status of Condition at Evaluation Unstable Summary Impairments Pain,ROM,Strength,Balance, Coordination,Tone,Cognition, Bed Mobility,Transfers,Gait, Activity Tolerance Progress Towards Goals Slow Progress - Other Assessment Summary Pt appears similar to checking on him for skilled PT four days ago. He keeps eyes open momentarily and makes no verbalizations. He appears to have pain with movement. He is dependent for bed mobility and sitting balance. 1-2 more treatment trials in acute this week and if he con't to be unable to participate, d/c acute PT again. Goals Bed Mobility Goal Minimal Assistance Transfer Goal Minimal Assistance,Front Wheeled Walker Gait Goal Minimal Assistance,Front Wheel Walker Gait Distance 50 Days to Meet Goals 10 Frequency of Treatment Other frequency 1-2 more treatment trials in acute Treatment Plan Physical Therapy Treatment Plan Bed Mobility Training,Transfer Training,Gait Training, Therapeutic Exercise,Balance Retraining,Discharge Planning, Neuromuscular Re-ed, Coordination Retraining Other Recommendations and Next Treatment Assess if pt can participate, Focus if not, consider d/c PT Precautions Other Precautions Falls Recommendations To Nursing Amount of Assist Needed Mechanical Lift Discharge Recommendations Other Discharge Recommendations 24 hour care at d/c Transportation Needs at Discharge Stretcher/Ambulance
--- NOTE | 2023-10-12 11:46 | PM.PN.1 ---
Subjective Subjective Date Patient Seen: 10/12/23 Time Patient Seen: 08:05 Interval history: The patient is arousable, awake, answers 1-2 word questions, states he wishes to start physical therapy. Physical therapy attempted to engage with the patient though he reportedly continue to fall asleep and not participate. Exam Vital Signs (past 8 hours): - 10/12/23 04:00 10/12/23 08:00 Temperature 97.5 F L 97.4 F L Pulse Rate 81 Respiratory Rate 18 16 Blood Pressure 156/96 H 172/87 H Pulse Oximetry 98 97 Oxygen Flow Rate 0 0 Oxygen Delivery Method Room Air Oxygen Flow Rate 0 Narrative Exam Narrative: NAD, arousable, though intermittently sleeping through the morning Lungs clear and normal effort. Heart, regular without murmur, gallop, or rub. Abdomen soft. ND. Extremities: left elbow mildly tender and swollen but with full range of motion. No leg edema. Objective Labs 10/08/23 04:15 10/12/23 05:12 Labs: Laboratory Results - last 24 hr 10/12/23 05:12 Sodium 131 L Potassium 2.9 L Chloride 107 Carbon Dioxide 22 BUN < 2 L Creatinine 0.32 L Estimated GFR > 60 BUN/Creatinine Ratio 6.3 Glucose 134 H Calcium 7.2 L Magnesium 1.4 L Ammonia < 9 L Phenytoin 25.5 H PFSH Medical History Cognitive deficits Chronic hyponatremia Left elbow fracture Broken neck Multiple falls Cervical spondylosis with myelopathy Marijuana dependence Osteoarthritis Memory loss Osteoarthrosis Epilepsy, unspecified, not intractable, without status epilepticus Alcohol dependence, uncomplicated Surgical History History of neck surgery History of back surgery H/O foot surgery H/O thumb surgery History of esophagogastroduodenoscopy (EGD) History of colonoscopy Family History Father Cancer Aneurysm Mother Cancer Social History marital status: unknown household members: none lives independently: Yes housing: other ([facility]) Smoking Status: Current every day smoker alcohol intake: current Assessment & Plan Assessment & Plan narrative: 1. Alcohol Withdrawal, present on admission and resolved with residual acute encephalopathy - treated precedex, librium and seroquel and off at this point -continue high dose IV thiamine as well for possible wernicke's with 500 mg IV TID for 3 days - is variably awake and interactive today, and hopeful for continued improvement, yet not engaging with physical therapy at this point, possibly due to elevated Dilantin level 2. NSVT, new and improved. - improved with amiodarone load and infusion but no recurrence thus far. Will continue to monitor, likely in setting of alcohol withdrawal, now off amiodarone. - telemetry now off with no recurrence 3. Severe alcohol use disorder, present on admission and active. - now completed withdrawal treatment. 4. Epilepsy, present on admission and active. - Dilantin at 500 mg BID with Dilantin level 25 today. Hold today and recheck tomorrow morning, with further dosing to be determined 5. Hyponatremia, present on admission and active. - chronic, likely related to beer drinking - monitored electrolytes - NS IV until awake and eating and drinking 6. 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 - continue PT/OT 7. HTN, present on admission and active. - amlodipine 5 to continue as long as he is able to swallow. 8. Right arm Laceration /left elbow contusion, present on admission and active. - Keflex x 6 days completed, with lethargy and inability to tolerate pills, no evidence of infection currently. - left elbow without fracture evident on xray. Monitor with usage 9. Hypokalemia/hypomagnesemia. -replete and monitor PLAN: -stop high dose IV thiamine today after 3 days for possible wernicke's -variable improvement though suspected that he will continued to improve gradually to baseline with time -continue to monitor closely. Attempt PT OT tomorrow if more participatory in general -ethics consulted regarding [id number] questions, but he is more awake and appears capable of making his own decisions at this point and signing paperwork, when awake MILES: Continuing to emerge gradually f rom alcoholic encephalopathy, and will continue to monitor. Consider PT OT again tomorrow. Case management working with rehab options. Team rounds conducted with nursing, case management, social worker assistant, pharmacy and physical therapy. Time-Based Coding :: [TOTAL MINUTES] spent with patient and on the chart (including review of chart, obtaining history, exam, reviewing outside data, placing orders, documenting exam and treatment plan, and counseling patient) on [DATE]. PROFEE Charge codes Subsequent inpatient/observation care: [id number]
[2023-10-12 14:56] LABS: HEMOLYSIS < 15 (0-50)
[2023-10-13] VITALS (10 sets, daily range): BP systolic 140–184; BP diastolic 81–99; PULSE 69–76; RESP 18–21; TEMP 36.2–36.5; O2SAT 72–99
[2023-10-13] MEDS: DEXTROSE 5%-0.9% NS 1,000 ML 125 ML IV (03:04)
[2023-10-13 05:46] LABS: Calcium 7.6 mg/dL (8.4-10.2); Carbon Dioxide 23 mmol/L (22-32); Chloride 104 mmol/L (98-107); Estimated Glomerular Filt Rate > 60 mL/min (>60); Glucose 112 mg/dL (80-110); HEMOLYSIS < 15 (0-50); Magnesium 1.7 mg/dL (1.6-2.3); Potassium 3.4 mmol/L (3.4-5.1); Sodium 130 mmol/L (137-145)
[2023-10-13 05:50] LABS: BUN Creatinine Ratio 6.1 (6-22); Blood Urea Nitrogen < 2 mg/dL (9-20)
[2023-10-13 06:18] LABS: Phenytoin / Dilantin 26.1 ug/mL (10-20)
--- NOTE | 2023-10-13 06:27 | PC.NURSE ---
Pt continues to refuse to eat or drink anything. Very withdrawn. Speech is garbled and very hard to understand. Turns every [address] Large UOP from garay. Continues on D5NS @ 125 mL/hr
--- NOTE | 2023-10-13 07:30 | P.PN_ITS ---
Subjective Subjective Interval history: Interval summary: admitted with moderate to severe alcohol withdraway. Subjective: He was more awake today. He knows he is in the hospital and what year it is. He is appreciative of his nurse. He states he wants to live longer, however he does not want to eat, or drink, or sit up in a chair. He was advised that he if do all these things to live longer. He also specifically declines IV fluids at this point in time. I witnessed him sign in his advance directives with Naida of care management. Exam Vital Signs (past 8 hours): Oxygen Delivery Method Room Air Oxygen Flow Rate 0 Narrative Exam Narrative: NAD, oriented with relatively normal speech and ability to converse. Lungs clear Heart regular Abdomen soft and NT No leg edema Left elbow: Improved. Objective Labs 10/08/23 04:15 10/13/23 05:16 Labs: Laboratory Results - last 24 hr 10/12/23 10/12/23 10/13/23 05:12 14:35 05:16 Sodium 130 L Potassium 4.0 3.4 Chloride 104 Carbon Dioxide 23 BUN < 2 L Creatinine 0.33 L Estimated GFR > 60 BUN/Creatinine Ratio 6.1 Glucose 112 H Calcium 7.6 L Magnesium 1.7 Phenytoin 25.5 H 26.1 H PFSH Medical History Cognitive deficits Chronic hyponatremia Left elbow fracture Broken neck Multiple falls Cervical spondylosis with myelopathy Marijuana dependence Osteoarthritis Memory loss Osteoarthrosis Epilepsy, unspecified, not intractable, without status epilepticus Alcohol dependence, uncomplicated Surgical History History of neck surgery History of back surgery H/O foot surgery H/O thumb surgery History of esophagogastroduodenoscopy (EGD) History of colonoscopy Family History Father Cancer Aneurysm Mother Cancer Social History marital status: unknown household members: none lives independently: Yes housing: other ([facility]) Smoking Status: Current every day smoker alcohol intake: current Assessment & Plan Assessment & Plan narrative: 1. Alcohol Withdrawal, present on admission and resolved with residual acute encephalopathy 2. NSVT, new and improved. - improved with amiodarone load and infusion but no recurrence thus far. Will continue to monitor, likely in setting of alcohol withdrawal, now off amiodarone. 3. Severe alcohol use disorder, present on admission and active. - now completed withdrawal treatment. 4. Epilepsy, present on admission and active. - Dilantin at 500 mg BID with Dilantin level 25 today. Hold Dilantin for several days. 5. Hyponatremia, present on admission and active. - chronic, likely related to beer drinking - monitored electrolytes 6. 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 7. HTN, present on admission and active. - amlodipine 5 to continue as long as he is able to swallow. 8. Right arm Laceration /left elbow contusion, present on admission and active. - Keflex x 6 days completed, with lethargy and inability to tolerate pills, no evidence of infection currently. - left elbow without fracture evident on xray. Monitor with usage 9. Hypokalemia/hypomagnesemia. -replete and monitor PLAN: -he signed is advance directives. -he appears to be alert and oriented and able to follow up the conversation and state exactly what he does not does not want. -he declines IV fluids at this time. -continue to monitor his status, fluid intake, and discharge planning. MILES: unclear. Team rounds conducted with nursing, case management, social science analyst, pharmacy and physical therapy. Time-Based Coding :: 25 min spent with patient and on the chart (including review of chart, obtaining history, exam, reviewing outside data, placing orders, documenting exam and treatment plan, and counseling patient) on 10/12.
[2023-10-13] MEDS: ENOXAPARIN 40 MG/0.4 ML SYRINGE SUBCUT (09:02)
--- NOTE | 2023-10-13 09:26 | SLP.IPNOTE ---
CASH MANAGEMENT SPECIALIST attempted bedside swallowing evaluation again. Pt declined to participate in oral care and in PO trials of ice chips, thin liquids, and puree given encouragement and discussion of need to assess current swallowing function and receive adequate nutrition/hydration for pt to meet his goal of going home. Pt is not appropriate for therapy at this time. Discussed evaluation attempt with RN and MD. Hospitalist okayed to discharge at this time.
--- NOTE | 2023-10-13 10:22 | PT-IP ANOTE ---
Discussed pt in rounds today and per team, pt con't to have no intake and remains with decreased ability to awaken. MD clears PT to d/c PT and so will d/c PT a second time.
--- NOTE | 2023-10-13 11:38 | CM.DPNOTE ---
Addendum entered by RAFAEL Zelaya 10/13/23 12:21: Add to previous note, BILLET ASSEMBLER updated lead BILLET ASSEMBLER Carrol and RN coordinator Natalee on signed POA/Advance Directives. SL Original Note: DCP Note BILLET ASSEMBLER reviewed EMR. Lengthy multidisciplinary discussion about pt POC moving forward. Pending pt's ability to regain capacity. Per hospitalist, pt alert and oriented enough to make healthcare decisions for self. BILLET ASSEMBLER, RN, and provider met with pt in room. BILLET ASSEMBLER reviewed previously completed advanced directives/POA paperwork. Pt continues to verbalize that previously completed documents remain his wishes. Pt signed POA/Advanced Directives paperwork. CC Asuncion scanned copy into chart, original placed in red chart, and copy of paperwork behind FS for reference. Per chart/RN report, pt continues to refuse to eat and wants to dc home. However, too weak to mobilize to leave AMA. P: DCP pending pt improvement. SNF vs home AMA vs dc to [facility]??? (Pending Medicaid LTC [facility]). APS investigation pending. CM team will likely make a referral to [facility] if pt leaves AMA. CM team will continue to follow closely. RAFAEL Zelaya
[2023-10-13] MEDS: MAGNESIUM SULFATE 2 GM/50 ML PIGGYBACK IV (12:29)
[2023-10-13] MEDS: POTASSIUM CHLORIDE IN WATER 10 MEQ/100 ML PIGGYBACK 100 MEQ IV ×2 (12:29→13:33)
--- NOTE | 2023-10-13 15:46 | OT.IPNOTE ---
Pt reclined in bed on entrance of OT. Pt responds to his name and reaches for OTs hand with his R hand, but other waggoner refuses to participate in any meaningful activity necessary for OT re-eval. D/C OT order at this time. Please re-order if pt becomes medically appropriate and motivated to participate.
[2023-10-14] VITALS (7 sets, daily range): BP systolic 162–190; BP diastolic 76–107; PULSE 70–79; RESP 19–22; TEMP 36.2; O2SAT 94–98
--- NOTE | 2023-10-14 05:47 | PC.NURSE ---
BP in the 180s - per overnight MD we did not treat. Continues to refuse all offers of food, liquids, and IV fluids. Continues with garay cath
--- NOTE | 2023-10-14 07:36 | P.PN_ITS ---
Subjective Subjective Interval history: Interval summary: admitted with moderate to severe alcohol withdrawal. Slow improvement of mental status. Signed his advanced directives yesterday. DNR/DNI. Subjective: Exam Vital Signs (past 8 hours): Oxygen Delivery Method Room Air Oxygen Flow Rate 0 Narrative Exam Narrative: NAD, alert and oriented. Fluent speech. Lungs are clear, normal rate and effort. Heart is regular, no murmur gallop or rub. Abdomen is soft, non distended. Extremities are free of edema. Objective Labs 10/08/23 04:15 10/13/23 05:16 [facility] Medical History Cognitive deficits Chronic hyponatremia Left elbow fracture Broken neck Multiple falls Cervical spondylosis with myelopathy Marijuana dependence Osteoarthritis Memory loss Osteoarthrosis Epilepsy, unspecified, not intractable, without status epilepticus Alcohol dependence, uncomplicated Surgical History History of neck surgery History of back surgery H/O foot surgery H/O thumb surgery History of esophagogastroduodenoscopy (EGD) History of colonoscopy Family History Father Cancer Aneurysm Mother Cancer Social History marital status: unknown household members: none lives independently: Yes housing: other ([facility]) Smoking Status: Current every day smoker alcohol intake: current Assessment & Plan Assessment & Plan narrative: 1. Alcohol Withdrawal, present on admission and resolved with residual acute encephalopathy 2. NSVT, new and improved. 3. Severe alcohol use disorder, present on admission and active. 4. Epilepsy, present on admission and active. 5. Hyponatremia, present on admission and active. 6. 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 7. HTN, present on admission and active. 8. Right arm Laceration /left elbow contusion, present on admission and active. 9. Hypokalemia/hypomagnesemia. 10. Supratherapeutic dilantin level from possible amiodarone-dilantin interaction. PLAN: -declines IVF -continue to follow mental status. Met with friends/POA today. He appears to be giving up on healing at this point. Will begin to discuss end of life care and preferences. Time-Based Coding :: 25 min spent with patient and on the chart (including review of chart, obtaining history, exam, reviewing outside data, placing orders, documenting exam and treatment plan, and counseling patient) on 10/13.
--- NOTE | 2023-10-14 11:09 | CM.DPNOTE ---
Addendum entered by RAFAEL Zelaya 10/14/23 14:55: TAPE SEWING MACHINE OPERATOR met with pt, Layo, and Mo multiple times throughout the day. pt participatory in conversations with friends present. Clearly and repeatedly stated he did not want CPR, iv fluids, or other life sustaining measures. TAPE SEWING MACHINE OPERATOR/hospitalist/POMani Vasques completed and signed POLST form. Original in chart, copy in scanning folder to be scanned into chart. TAPE SEWING MACHINE OPERATOR reviewed different DCP options with pt and Layo. Layo [place]/did not want to pursue hospice house in [place]. Open to either [facility] placement with or without hospice support vs [facility] in the home. Understand application is pending. Layo/Joel unlikely to care for pt themselves at home if pt needed all of his ADLs cared for by them. Pt drank a small amount of water/chicken broth/protein shake with nursing staff/friends present. Wanted to rest. P: DCP continues to develop. CM team will follow closely SL Original Note: DCP Note Per RN, pt continues to refuses to eat or drink. Periods of being alert with primarily being somnolent TAPE SEWING MACHINE OPERATOR spoke with POA/Friend Layo, ([phone]), agrees to come in to meet with provider/this TAPE SEWING MACHINE OPERATOR/pt in room this morning for multidisciplinary meeting. TAPE SEWING MACHINE OPERATOR emailed Lauren Elizabeth ([facility] particle board supervisor) about status of [facility]. Reports she does not have pt on her radar. TAPE SEWING MACHINE OPERATOR completed and faxed expedited intake/referral form. Lauren agrees to keep an eye out for his application for us. Provider, RN, this TAPE SEWING MACHINE OPERATOR met with Joel Vasques, and pt in room. Briefly reviewed current options. Layo and Joel wish to visit with pt and get a better understanding about pt's wishes/plans moving forward. Layo and Joel report that since pt's dtr and dog a year and a half ago, pt has not taken the best care of himself. P: DCP pending pt improvement. Pt to pass here vs home on hospice vs SNF vs home AMA vs dc [facility]??? (Pending Medicaid LTC [facility]). APS investigation pending. CM team will likely make a referral to [facility] if pt leaves AMA. CM team will continue to follow closely. RAFAEL Zelaya
--- NOTE | 2023-10-14 11:42 | DIET.PN1 ---
Dietary Progress Note Assessment: Pt continues to refuse offers of food and liquids. Pt signed advance directives yesterday. Reviewed these with SENIOR CHEMIST today, which state nutrition support is not within pt's goals of care. Pt declined to continue IV fluids yesterday. Will continue to provide food and drink at meal times. Will f/u if plan of care changes. Ht: 177.8 cm Wt: 63.503 kg BMI: 20.0 Last BM: 10/02/23 (10/03/23 23:22) MNA: Vaughn Score: 13 Diet: 10/04/23 Breakfast General (Regular) Diet Diet Modifications: Nutrition Percent Meal Consumed refused to eat 10/13/23 12:30 Percent Meal Consumed 0% 10/12/23 18:00 Labs: RBC 3.36 X10^6/uL (4.5-5.9) L 10/08/23 04:15 Hgb 11.3 g/dL (13.5-17.5) L 10/08/23 04:15 Hct 32.4 % (41-53) L 10/08/23 04:15 Creatinine 0.33 mg/dL (0.66-1.25) L 10/13/23 05:16 NT-Pro-B Natriuret Pep 489 pg/mL (<125) H 10/03/23 17:00 Electronically Signed by: Yaerli Pinto 10/14/23 11:42 Clinical [address] [address]
--- NOTE | 2023-10-14 14:59 | PC.NURSE ---
Addendum entered by Maria Guadalupe Joseph R.N. 10/14/23 16:38: Patient expressed interest in getting up to chair. Assisted to side of bed. Initially required full assist to hold self up in sitting position but then pt was able to hold self up with cueing and use of grab handle on side of bed. 2 person full assist to stand with walker. Pt shaky on legs and unable to balance and move feet. Sat back on side of bed and assisted to chair via Kristina. Original Note: Day Shift Note Patient's POAs Layo and Mariano at bedside today for several discussions with MD RAFAEL, and this comic writer about plan of care. POLST form signed. Pt is awake and alert for these discussions, pt is notably more interactive with POAs present. Pt declined food or drink this morning but did drink water, some ensure, and some broth when friends were at bedside. Mostly sleeping but does awaken easily and can minimally assist with turns in bed although patient is very weak. Declined several times this shift to get out of bed. Declined morning medications. Roberson catheter in place. Bed alarm on.
--- NOTE | 2023-10-15 07:47 | PM.PN.1 ---
Subjective Subjective Interval history: Interval summary: admitted with moderate to severe alcohol withdrawal. Slow improvement of mental status. Signed his advanced directives yesterday. DNR/DNI. S: He is awake and appears lucid. He states he was not going to eat or drink today. He agrees with being made comfortable. Exam Vital Signs (past 8 hours): Oxygen Delivery Method Room Air Oxygen Flow Rate 0 Narrative Exam Narrative: NAD, alert and oriented. Slow and soft speech. Lungs are clear, normal rate and effort. Heart is regular, no murmur gallop or rub. Abdomen is soft, non distended. Extremities are free of edema. Objective Labs 10/15/23 08:12 10/15/23 08:12 [facility] Medical History Cognitive deficits Chronic hyponatremia Left elbow fracture Broken neck Multiple falls Cervical spondylosis with myelopathy Marijuana dependence Osteoarthritis Memory loss Osteoarthrosis Epilepsy, unspecified, not intractable, without status epilepticus Alcohol dependence, uncomplicated Surgical History History of neck surgery History of back surgery H/O foot surgery H/O thumb surgery History of esophagogastroduodenoscopy (EGD) History of colonoscopy Family History Father Cancer Aneurysm Mother Cancer Social History marital status: unknown household members: none lives independently: Yes housing: other ([facility]) Smoking Status: Current every day smoker alcohol intake: current Assessment & Plan Assessment & Plan narrative: 1. Alcohol Withdrawal, present on admission and resolved with mild residual acute encephalopathy 2. NSVT, new and improved. 3. Severe alcohol use disorder, present on admission and active. 4. Epilepsy, present on admission and active. 5. Hyponatremia, present on admission and stable. 6. 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 7. HTN, present on admission and active. 8. Right arm Laceration /left elbow contusion, present on admission and active. 9. Hypokalemia/hypomagnesemia. 10. Supratherapeutic dilantin level from possible amiodarone-dilantin interaction. 11. Anorexia, new and active. He continues to decline any oral intake. He was not taking his oral medications. He did sign his advance directives and POLST. He was DNR DNI. His friends and power of attorneys did visit yesterday and he really did not do any better with them with regards to oral intake. PLAN: -declines IVF -continue to follow mental status. -comfort based care at this point. -looking into options for end of life care. Time-Based Coding :: 20 min spent with patient and on the chart (including review of chart, obtaining history, exam, reviewing outside data, placing orders, documenting exam and treatment plan, and counseling patient) on 10/14.
[2023-10-15 08:34] LABS: Hematocrit 36.4 % (41-53); Hemoglobin 12.4 g/dL (13.5-17.5); Mean Corpuscular Hemoglobin 32.7 PG (26-34); Mean Corpuscular Volume 96.2 fL (80-100); Platelet Count 213 X10^3/uL (150-400); Red Blood Cell Count 3.79 X10^6/uL (4.5-5.9); Red Cell Distribution Width 13.8 % (11.6-14.8); White Blood Cell Count 3.9 X10^3/uL (4.5-11.0)
[2023-10-15 08:47] LABS: Calcium 8.1 mg/dL (8.4-10.2); Carbon Dioxide 21 mmol/L (22-32); Chloride 101 mmol/L (98-107); Estimated Glomerular Filt Rate > 60 mL/min (>60); Glucose 88 mg/dL (80-110); HEMOLYSIS < 15 (0-50); Potassium 3.8 mmol/L (3.4-5.1); Sodium 130 mmol/L (137-145)
[2023-10-15 08:48] LABS: Blood Urea Nitrogen < 2 mg/dL (9-20)
[2023-10-15 08:57] VITALS: BP 171/100
[2023-10-15 08:59] VITALS: BP 172/89; PULSE 77; RESP 22; TEMP 36.4; O2SAT 90; O2SAT 98
--- NOTE | 2023-10-15 15:27 | CM.DPNOTE ---
Addendum entered by RAFAEL Zelaya 10/15/23 16:22: PAROLE OFFICER met with APS arson investigator Laurent Guerrero. Provided him contact information for PORitu Vasques/Joel. Laurent asked for clinicals related to his cognitive capacity be faxed to him. Either OT or provider notes would be appreciated. (f [phone] or email [email or web address]) SL Original Note: DCP note PAROLE OFFICER reviewed EMR. Per RN note, pt interested in going to chair, was arya to chair 10/13. Per RN today, pt refusing to eat or drink if friends not here. Not really able to lift head up. Sleeping throughout the day. Per charge nurse, APS arson investigator Laurent Waldrop scheduled to come meet with pt in room today. PAROLE OFFICER lvm with Laurent ([phone]) around 3pm. No evidence of Laurent at this time. PAROLE OFFICER lvms with [facility] Comm Relations Sabine ([phone]) and [place] admin Duncan ([phone]) to inquire about Medicaid bed availability per POA's request for pt to remain in [place]. Per [facility] Anyi ([phone]) have bed availability but unsure if it would be available for long. Next steps likely involve obtaining and notarizing financial POA for pt. Per Layo, only valid photo ID pt has is [facility] ID. Per Joel, he took pt's wallet for him but would bring it back so we could get a copy of the ID for financial POA. Pt not alert enough at this time to express who he would want to be his financial POA. P: DCP pending, pt either to pass here vs dc to [facility] with Medicaid LTC coverage and hospice support. Financial POA needed. CM team will continue to follow closely. RAFAEL Zelaya
[2023-10-15 19:43] VITALS: PULSE 84; O2SAT 84
[2023-10-15 19:45] VITALS: BP 136/82; PULSE 84; O2SAT 97
[2023-10-15 20:00] VITALS: BP 136/82; PULSE 83; RESP 17; TEMP 36.8; O2SAT 95
[2023-10-16] VITALS (7 sets, daily range): BP systolic 141–167; BP diastolic 77–86; PULSE 62–84; RESP 16–20; TEMP 36.3–36.9; O2SAT 81–97
[2023-10-16] MEDS: AMLODIPINE 5 MG TABLET PO (09:01)
[2023-10-16] MEDS: MULTIVITAMIN 1 TABLET 1 TAB PO (09:01)
[2023-10-16] MEDS: TAMSULOSIN 0.4 MG CAPSULE PO (09:02)
[2023-10-16] MEDS: FOLIC ACID 1 MG TABLET PO (09:02)
[2023-10-16] MEDS: ENOXAPARIN 40 MG/0.4 ML SYRINGE SUBCUT (09:02)
--- NOTE | 2023-10-16 15:56 | CM.DPNOTE ---
DCP Note METERS SUPERINTENDENT reviewed EMR. Per RN, pt drank entire ensure Friday and most of one . Drinking more water. METERS SUPERINTENDENT emailed Jostin Guerrero APS animal treatment investigator ([email or web address]) clinical information he requested for pt's case. METERS SUPERINTENDENT met with pt and friend Mo in room multiple times. pt sitting up in chair and more talkative today. Mo encouraging pt to eat. Mo gave copy of pt's drivers license. Mo reports [facility] might have copy of photo ID on file. Pt reports he is unsure of who he would want to be his financial POA but would think about it. Pt expressed wanting to get out of here. Mo reported to pt he had to eat/drink if he wanted to get strong enough to leave and had to work with PT/OT. Pt in agreement to try PT/OT again. METERS SUPERINTENDENT will f/u Friday and consider having hospitalist reorder PT/OT Friday it pt remains appropriate. P: CM team will attempt to get valid photo ID from [facility] if available (needed for financial POA ppwk/notary). If pt continues to perk up and become SNF appropriate, [facility] auth/referrals needed. Otherwise, plan remains LTC placement with [facility] (POAs preference is for him to remain in [place]), maybe even placement with Hospice support? CM team will follow closely. RAFAEL Zelaya
--- NOTE | 2023-10-16 18:30 | P.PN_ITS ---
Subjective Subjective Interval history: Interval summary: admitted with moderate to severe alcohol withdrawal. Slow improvement of mental status. Signed his advanced directives yesterday. DNR/DNI. S: He is awake and appears lucid. He is more interactive, ate meals with friends at bedside. May be willing to work with therapies. Exam Vital Signs (past 8 hours): Oxygen Delivery Method Room Air Oxygen Flow Rate 0 Narrative Exam Narrative: NAD, alert and oriented. Slow and soft speech. Lungs are clear, normal rate and effort. Heart is regular, no murmur gallop or rub. Abdomen is soft, non distended. Extremities are free of edema. Objective Labs 10/15/23 08:12 10/15/23 08:12 [facility] Medical History Cognitive deficits Chronic hyponatremia Left elbow fracture Broken neck Multiple falls Cervical spondylosis with myelopathy Marijuana dependence Osteoarthritis Memory loss Osteoarthrosis Epilepsy, unspecified, not intractable, without status epilepticus Alcohol dependence, uncomplicated Surgical History History of neck surgery History of back surgery H/O foot surgery H/O thumb surgery History of esophagogastroduodenoscopy (EGD) History of colonoscopy Family History Father Cancer Aneurysm Mother Cancer Social History marital status: unknown household members: none lives independently: Yes housing: other ([facility]) Smoking Status: Current every day smoker alcohol intake: current Assessment & Plan Assessment & Plan narrative: 1. Alcohol Withdrawal, present on admission and resolved with mild residual acute encephalopathy 2. NSVT, new and improved. 3. Severe alcohol use disorder, present on admission and active. 4. Epilepsy, present on admission and active. 5. Hyponatremia, present on admission and stable. 6. 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 7. HTN, present on admission and active. 8. Right arm Laceration /left elbow contusion, present on admission and active. 9. Hypokalemia/hypomagnesemia. 10. Supratherapeutic dilantin level from possible amiodarone-dilantin interaction. 11. Anorexia, new and active. He continues to decline any oral intake. He was not taking his oral medications. He did sign his advance directives and POLST. He was DNR DNI. His friends and power of attorneys did visit yesterday and he really did not do any better with them with regards to oral intake. PLAN: -declines IVF -continue to follow mental status. -continue limited medications based on goals of care. Patient may be willing to persue therapy in hopes of getting stronger, but will reassess tomorrow as therapy team was not available today. -looking into options for end of life care. Time-Based Coding :: [TOTAL MINUTES] spent with patient and on the chart (including review of chart, obtaining history, exam, reviewing outside data, placing orders, documenting exam and treatment plan, and counseling patient) on [DATE].
[2023-10-17 07:57] VITALS: BP 164/95; PULSE 87; O2SAT 94
--- NOTE | 2023-10-17 12:14 | PC.NURSE ---
Addendum entered by Rosalba Ricketts R.N. 10/17/23 15:14: Pt awake, attempting to climb out of bed, however he is far too weak. States I want to go to the bathroom this nurse educated pt about his garay catheter. Pt states I'm going to get out of this bed, pt is too weak to even sit up on his own, still refusing ensure and water. Updated Provider, no new orders. Bed low and locked, call light within reach, bed alarm active, will continue to monitor Addendum entered by Rosalba Ricketts R.N. 10/17/23 14:09: Friend Mariano got pt to drink 1/3 ensure, pt refusing anymore at this time, no further needs Original Note: Pt refusing food or drink this morning, when friend Mariano came to bedside pt continued to refuse food and drink. Mostly sleeping but does awaken easily and can minimally assist with turns in bed although patient is extremely weak. Declined several times this shift to get out of bed. Declined morning medications. Dr Eduardo aware, Comfort care orders received. Garay catheter in place and patent, concentrated alberto urine, with minimum output. Bed low and locked, alarm on for safety, call light within reach, will continue to monitor
--- NOTE | 2023-10-17 15:29 | P.PN_ITS ---
Subjective Subjective Interval history: Interval summary: admitted with moderate to severe alcohol withdrawal. Slow improvement of mental status now waxing and waning. S: He is awake and more confused today. Refusing to work with therapies again. Exam Vital Signs (past 8 hours): Oxygen Delivery Method Room Air Oxygen Flow Rate 0 Narrative Exam Narrative: NAD, alert but confused. Slow and soft speech. Lungs are clear, normal rate and effort. Heart is regular, no murmur gallop or rub. Abdomen is soft, non distended. Extremities are free of edema. Objective Labs 10/15/23 08:12 10/15/23 08:12 [facility] Medical History Cognitive deficits Chronic hyponatremia Left elbow fracture Broken neck Multiple falls Cervical spondylosis with myelopathy Marijuana dependence Osteoarthritis Memory loss Osteoarthrosis Epilepsy, unspecified, not intractable, without status epilepticus Alcohol dependence, uncomplicated Surgical History History of neck surgery History of back surgery H/O foot surgery H/O thumb surgery History of esophagogastroduodenoscopy (EGD) History of colonoscopy Family History Father Cancer Aneurysm Mother Cancer Social History marital status: unknown household members: none lives independently: Yes housing: other ([facility]) Smoking Status: Current every day smoker alcohol intake: current Assessment & Plan Assessment & Plan narrative: 1. Alcohol Withdrawal, present on admission and resolved with mild residual acute encephalopathy 2. NSVT, new and improved. 3. Severe alcohol use disorder, present on admission and active. 4. Epilepsy, present on admission and active. 5. Hyponatremia, present on admission and stable. 6. 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 7. HTN, present on admission and active. 8. Right arm Laceration /left elbow contusion, present on admission and active. 9. Hypokalemia/hypomagnesemia. 10. Supratherapeutic dilantin level from possible amiodarone-dilantin interaction. 11. Anorexia, new and active. He continues to decline any oral intake. He was not taking his oral medications. He did sign his advance directives and POLST. He was DNR DNI. His friends and power of attorneys did visit yesterday and he really did not do any better with them with regards to oral intake. PLAN: -declines IVF -continue to follow mental status. -continue limited medications based on goals of care. Patient may be willing to persue therapy in hopes of getting stronger, but will reassess tomorrow as therapy team was not available today. -looking into options for end of life care. -placed on comfort measures based on patient preferences while lucid. Given refusing medications stopped dilantin today as well, has not received in 6 days without any seizure activity. Discussed with bedside RN, case management to contribute to above history, assessment and plan. Dispo: pending LTC plan with hospice. Time-Based Coding :: [TOTAL MINUTES] spent with patient and on the chart (including review of chart, obtaining history, exam, reviewing outside data, placing orders, documenting exam and treatment plan, and counseling patient) on [DATE].
[2023-10-17] MEDS: LORazepam 2 MG/ML INJ 1 MG IV (15:54)
[2023-10-17] MEDS: MORPHINE 4 MG/ML INJ IV (15:54)
--- NOTE | 2023-10-17 16:05 | CM.DPC ---
DCP Continued: Reviewed EMR and team rounds for pt?s medical status. Per RN, pt is increasingly agitated and trying to get out of bed but too weak to do so independently. Per RN, pt waxes and wanes with motivation to eat, participate with care, etc. No PT/OT ordered today due to pt not participating. Per hospitalist, due to pt's agitation, OT/SLUMS assessment not appropriate at this time. [facility] was able to acquire a copy of ID photo ID (in scanned records labeled under [employer] License) with hopes this would suffice for Financial POA completion. Financial POA needed to continue with LTC placement. [facility] left a voice message for APS [place] Agent, Jostin Guerrero (ph#[phone]), requesting any possible leads to assist with obtaining notary services for low income pts and to request follow up regarding patient case. Barrier: Need notary services for Financial POA, DCP will request assistance from hospital administration. Plan: Plan of care evolving pending pt motivation/participation (LTC with hospice services vs. SNF Rehab). CM Team will continue to follow for coordination of discharge plans. MARIMAR Belcher
--- NOTE | 2023-10-18 08:05 | PM.PN.1 ---
Subjective Subjective Interval history: His Medicaid application is pending. His friend says that he is not aware of anyone who could stay with him and enable him to go home at this stage. He is requesting to be essentially palliative care and is refusing further IVs or other interventions here. The 10/14 sodium was 130 with a creatinine of 0.4. He is waiting for placement. Exam Vital Signs (past 8 hours): Oxygen Delivery Method Room Air Oxygen Flow Rate 0 Narrative Exam Narrative: Alert. Orientation Is not clear. No apparent distress. Heart is regular rate and rhythm without murmur. Lungs are clear to auscultation bilaterally. Extremities have no ankle edema. The patient is confused. Objective Labs 10/15/23 08:12 10/15/23 08:12 [facility] Medical History Cognitive deficits Chronic hyponatremia Left elbow fracture Broken neck Multiple falls Cervical spondylosis with myelopathy Marijuana dependence Osteoarthritis Memory loss Osteoarthrosis Epilepsy, unspecified, not intractable, without status epilepticus Alcohol dependence, uncomplicated Surgical History History of neck surgery History of back surgery H/O foot surgery H/O thumb surgery History of esophagogastroduodenoscopy (EGD) History of colonoscopy Family History Father Cancer Aneurysm Mother Cancer Social History marital status: unknown household members: none lives independently: Yes housing: other ([facility]) Smoking Status: Current every day smoker alcohol intake: current Assessment & Plan Assessment & Plan narrative: 1. Alcohol Withdrawal, present on admission and resolved with mild residual acute encephalopathy 2. NSVT, new and improved. 3. Severe alcohol use disorder, present on admission and active. 4. Epilepsy, present on admission and active. 5. Hyponatremia, present on admission and stable. 6. 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 7. HTN, present on admission and active. 8. Right arm Laceration /left elbow contusion, present on admission and active. 9. Hypokalemia/hypomagnesemia. 10. Supratherapeutic dilantin level from possible amiodarone-dilantin interaction. 11. Anorexia, new and active. He continues to decline any oral intake. He was not taking his oral medications. He did sign his advance directives and POLST. He was DNR DNI. His friends and power of attorneys did visit yesterday and he really did not do any better with them with regards to oral intake. PLAN: -declines IVF -continue to follow mental status. -continue limited medications based on goals of care. Patient not interested in therapy. -looking into options for end of life care. -placed on comfort measures based on patient preferences while lucid. Given refusing medications stopped dilantin as well, has not received in 6 days without any seizure activity. Discussed with bedside RN, case management to contribute to above history, assessment and plan. Now pending Medicaid application for possible assisted living placement. Friends unable to provide support at home. Time-Based Coding :: [TOTAL MINUTES] spent with patient and on the chart (including review of chart, obtaining history, exam, reviewing outside data, placing orders, documenting exam and treatment plan, and counseling patient) on [DATE].
[2023-10-18] MEDS: ENOXAPARIN 40 MG/0.4 ML SYRINGE SUBCUT (09:50)
--- NOTE | 2023-10-18 11:15 | CM.DPC ---
DCP Cont: SW met bedside with pt, sleeping and barely opens eyes and not able to participate at this time in discussion, and POA/friend Mo. Updated Mo on the process of needing Medicaid LTC application to be approved and have assessment and once this is completed then would attempt SENIOR LIVING placement and would start with [facility] and [facility] as pt's friends and Mo himself would likely not be able to visit much if pt was moved to a facility somewhere out of town. SW confirmed with Mo that although pt has friends in his apt building and in town that could visit and check on him regularly, he is not aware of a way to confim 24/7 care for pt especially with physical assist in his apt for pt to safely d/c back to his apt. Pt does not have finances to privately pay for CG at home. Continues to need LTC approved for placement as pt not safe for d/c to his apt as he is not independently ambulatory, needs assist with care and repositioning. Mo plans to confirm if pt has his end of life wishes set up (cremation and remains left at a plot with his mom and dad) as Mo states pt had mentioned he had this all set and paid for but Mo uncertain where and will try to find pwk or call [facility] to confirm plans in place. RAFAEL Sepulveda
[2023-10-18 14:00] VITALS: BP 153/66; PULSE 84; RESP 18; TEMP 36.8; O2SAT 96
[2023-10-18 14:14] VITALS: BP 153/86; PULSE 85; O2SAT 93
--- NOTE | 2023-10-18 18:50 | PC.NURSE ---
Pt declined new IV access. Provider notified. Provider okayed no IV access.
[2023-10-18 19:43] VITALS: BP 158/84; PULSE 94; O2SAT 97
[2023-10-18 20:15] VITALS: BP 158/84; PULSE 95; RESP 16; TEMP 36.6; O2SAT 98
[2023-10-18] MEDS: LORazepam 1 MG TABLET PO (21:28)
--- NOTE | 2023-10-19 08:19 | P.PN_ITS ---
Subjective Subjective Date Patient Seen: 10/19/23 Interval history: No new issues today. He barely acknowledges me. He continues to refuse medications and food most of the time. Social service points out that before getting on [facility] he also needs to have a financial power of workers compensation defense attorney assigned which is likely another prolonged delay in placement. The blood pressure is 151/84 with a heart rate of 95. Exam Vital Signs (past 8 hours): Oxygen Delivery Method Room Air Oxygen Flow Rate 0 Narrative Exam Narrative: Minimal interaction and no engagement today. No apparent distress. Heart is regular rate and rhythm without murmur Lungs are clear to auscultation bilaterally Abdomen is soft, bowel sounds positive, nontender, no organomegaly. Extremities have no ankle edema. Objective Labs 10/15/23 08:12 10/15/23 08:12 [facility] Medical History Cognitive deficits Chronic hyponatremia Left elbow fracture Broken neck Multiple falls Cervical spondylosis with myelopathy Marijuana dependence Osteoarthritis Memory loss Osteoarthrosis Epilepsy, unspecified, not intractable, without status epilepticus Alcohol dependence, uncomplicated Surgical History History of neck surgery History of back surgery H/O foot surgery H/O thumb surgery History of esophagogastroduodenoscopy (EGD) History of colonoscopy Family History Father Cancer Aneurysm Mother Cancer Social History marital status: unknown household members: none lives independently: Yes housing: other ([facility]) Smoking Status: Current every day smoker alcohol intake: current Assessment & Plan Assessment & Plan narrative: 1. Alcohol Withdrawal, present on admission and resolved with mild residual acute encephalopathy 2. NSVT, new and improved. 3. Severe alcohol use disorder, present on admission and active. 4. Epilepsy, present on admission and active. 5. Hyponatremia, present on admission and stable. 6. 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 7. HTN, present on admission and active. 8. Right arm Laceration /left elbow contusion, present on admission and active. 9. Hypokalemia/hypomagnesemia. 10. Supratherapeutic dilantin level from possible amiodarone-dilantin interaction. 11. Anorexia, new and active. He continues to decline any oral intake. He was not taking his oral medications. He did sign his advance directives and POLST. He was DNR DNI. His friends and power of attorneys visit daily and he does not do any better with them with regards to oral intake. PLAN: -declines IVF -continue to follow mental status. -continue limited medications based on goals of care. Patient not interested in therapy. -looking into options for end of life care. -placed on comfort measures based on patient preferences while lucid. Given refusing medications stopped dilantin as well, has not received in 6 days without any seizure activity. Discussed with bedside RN, case management to contribute to above history, assessment and plan. Now pending Medicaid application for possible assisted living placement. Financial POA will also need to be officially determined. Friends unable to provide support at home. Time-Based Coding :: [TOTAL MINUTES] spent with patient and on the chart (including review of chart, obtaining history, exam, reviewing outside data, placing orders, documenting exam and treatment plan, and counseling patient) on [DATE].
[2023-10-19 11:19] VITALS: O2SAT 56
[2023-10-19 11:20] VITALS: BP 154/97; PULSE 85; O2SAT 97
[2023-10-19 12:59] VITALS: BP 154/97; PULSE 84; RESP 19; O2SAT 98
[2023-10-19] MEDS: LORazepam 1 MG TABLET PO ×2 (18:11→21:51)
[2023-10-20] MEDS: droNABinol 2.5 MG CAPSULE PO ×2 (10:11→20:03)
[2023-10-20 12:00] VITALS: BP 163/92; PULSE 88; RESP 22; TEMP 36.3; O2SAT 95
[2023-10-20 12:27] VITALS: BP 163/92; PULSE 88; O2SAT 95
--- NOTE | 2023-10-20 17:16 | PM.PN.1 ---
Subjective Subjective Date Patient Seen: 10/19/23 Interval history: No updates today. Will attempt marinol to see if any improvement in behavior or appetite. Exam Vital Signs (past 8 hours): - 10/20/23 12:00 Temperature 97.4 F L Pulse Rate 88 Respiratory Rate 22 Blood Pressure 163/92 H Pulse Oximetry 95 Oxygen Flow Rate 0 Oxygen Delivery Method Room Air Oxygen Flow Rate 0 Narrative Exam Narrative: Alert today, more interactive though minimal responses. No apparent distress. Heart is regular rate and rhythm without murmur Lungs are clear to auscultation bilaterally Abdomen is soft, bowel sounds positive, nontender, no organomegaly. Extremities have no ankle edema. Objective Labs 10/15/23 08:12 10/15/23 08:12 [facility] Medical History Cognitive deficits Chronic hyponatremia Left elbow fracture Broken neck Multiple falls Cervical spondylosis with myelopathy Marijuana dependence Osteoarthritis Memory loss Osteoarthrosis Epilepsy, unspecified, not intractable, without status epilepticus Alcohol dependence, uncomplicated Surgical History History of neck surgery History of back surgery H/O foot surgery H/O thumb surgery History of esophagogastroduodenoscopy (EGD) History of colonoscopy Family History Father Cancer Aneurysm Mother Cancer Social History marital status: unknown household members: none lives independently: Yes housing: other ([facility]) Smoking Status: Current every day smoker alcohol intake: current Assessment & Plan Assessment & Plan narrative: 1. Alcohol Withdrawal, present on admission and resolved with mild residual acute encephalopathy 2. NSVT, new and improved. 3. Severe alcohol use disorder, present on admission and active. 4. Epilepsy, present on admission and active. 5. Hyponatremia, present on admission and stable. 6. 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 7. HTN, present on admission and active. 8. Right arm Laceration /left elbow contusion, present on admission and active. 9. Hypokalemia/hypomagnesemia. 10. Supratherapeutic dilantin level from possible amiodarone-dilantin interaction. 11. Anorexia, new and active. He continues to decline any oral intake. He was not taking his oral medications. He did sign his advance directives and POLST. He was DNR DNI. His friends and power of attorneys visit daily and he does not do any better with them with regards to oral intake. PLAN: -declines IVF -continue to follow mental status. -continue limited medications based on goals of care. Patient not interested in therapy. -looking into options for end of life care. -placed on comfort measures based on patient preferences while lucid. Given refusing medications stopped dilantin as well, has not received in 6 days without any seizure activity. -Did order for marinol today to see if overall improvement in lethargy and appetite. Discussed with bedside RN, case management to contribute to above history, assessment and plan. Now pending Medicaid application for possible assisted living placement. Financial POA will also need to be officially determined. Friends unable to provide support at home. Time-Based Coding :: [TOTAL MINUTES] spent with patient and on the chart (including review of chart, obtaining history, exam, reviewing outside data, placing orders, documenting exam and treatment plan, and counseling patient) on [DATE].
--- NOTE | 2023-10-20 18:33 | PC.NURSE ---
pt remains confused and attempting to get oob; assisted pt to stand w/2 person asst, FWW, and gait belt; able to take a few steps to the recliner; pt sat up for about 20 minutes then started trying to get out of chair and go home; pt returned to bed
--- NOTE | 2023-10-20 19:27 | PC.NURSE ---
Addendum entered by Eli Polanco R.N. 10/21/23 06:02: Pt continued to be agitated and still trying to get out of bed, pt asking for a green book where he stated he had his mom's phone number and wanting to call her. pt asking for help to put on his jeans. Pt also asked to get in a wheelchair and go to the store to get a sick pack of beer. Pt received his nightly dose of marinol and a dose of po ativan. pt went to sleep around midnight. Original Note: Assumed care of patient at 1900, pt agitated, trying to get out of bed. At the moment this nurse is sitting outside of patients's room. bed alarm in place.
[2023-10-20] MEDS: LORazepam 1 MG TABLET PO (20:03)
--- NOTE | 2023-10-21 09:11 | PC.NURSE ---
Patient asleep at this time, bed alarm on. Continue to monitor.
[2023-10-21 12:00] VITALS: BP 139/84; PULSE 89; RESP 18; TEMP 36.3; O2SAT 99
[2023-10-21 12:12] VITALS: BP 139/84; PULSE 82; O2SAT 97
--- NOTE | 2023-10-21 13:08 | CM.DPNOTE ---
Addendum entered by RAFAEL Zelaya 10/21/23 15:48: REFRIGERATION SYSTEMS INSTALLER spoke with Duncan from [place]. REFRIGERATION SYSTEMS INSTALLER gave brief report of situation. Duncan reports [facility] availability and will send a nurse today to interview pt. MARIELA Roland kindly agreed to fax clinicals/med list to [place] for review. REFRIGERATION SYSTEMS INSTALLER updated WEBFOCUS DEVELOPER/RN of nurse coming to visit with pt from [place]. REFRIGERATION SYSTEMS INSTALLER updated pt. in agreement to meet with [place]. REFRIGERATION SYSTEMS INSTALLER answered questions to best of ability about [place]. Pt likely in agreement to move there. SL Original Note: DCP Note REFRIGERATION SYSTEMS INSTALLER reviewed EMR. Per hospitalist in morning rounds, pt eating more and was trying to ambulate out of bed to get up into chair during previous day. Hospitalist changing some meds around to see if pt would be more alert/participatory during day but not agitated at night. REFRIGERATION SYSTEMS INSTALLER chatted with in house denita Guerrero. updated on situation. Tentative plan is for her to come notarize Financial POA paperwork 10/22 at 1300, will see if VA ID is acceptable form of ID. REFRIGERATION SYSTEMS INSTALLER met with pt in room. Alert and chatty today. Unsure if he wants to participate in therapies to get stronger or remain in bed. In agreement to dc to [facility] in [place]. report he wants Layo/Mo to act as financial POAs, does not care which is primary and which is secondary. Asked that it just be the same as his healthcare one. REFRIGERATION SYSTEMS INSTALLER reviewed financial POA paperwork and assisted pt in completing it. Pt complemented the staff here at stating we were taking such good care of him and expressed his appreciation. REFRIGERATION SYSTEMS INSTALLER emailed with Yolanda Owen from [facility], wrapper caser assisted to pt. updated her on barriers and current plan. Unsure if she is just the wrapper caser for in home services or could do LTC placement as well? Hopeful to schedule assessment this week for [facility]. P: Plan of care evolving pending pt motivation/participation (LTC with hospice services vs. SNF Rehab). CM Team will continue to follow for coordination of discharge plans. RAFAEL Zelaya
[2023-10-21] MEDS: droNABinol 2.5 MG CAPSULE PO (13:22)
[2023-10-21] MEDS: ACETAMINOPHEN 325 MG TABLET 650 MG PO (14:22)
--- NOTE | 2023-10-21 17:30 | P.PN_ITS ---
Subjective Subjective Date Patient Seen: 10/19/23 Interval history: He did eat again today, a bit more active. Was up during the night and confused again. Exam Vital Signs (past 8 hours): - 10/21/23 12:00 Temperature 97.4 F L Pulse Rate 89 Respiratory Rate 18 Blood Pressure 139/84 Pulse Oximetry 99 Oxygen Flow Rate 0 Oxygen Delivery Method Room Air Oxygen Flow Rate 0 Narrative Exam Narrative: Alert today, more interactive though minimal responses. No apparent distress. Heart is regular rate and rhythm without murmur Lungs are clear to auscultation bilaterally Abdomen is soft, bowel sounds positive, nontender, no organomegaly. Extremities have no ankle edema. Objective Labs 10/15/23 08:12 10/15/23 08:12 [facility] Medical History Cognitive deficits Chronic hyponatremia Left elbow fracture Broken neck Multiple falls Cervical spondylosis with myelopathy Marijuana dependence Osteoarthritis Memory loss Osteoarthrosis Epilepsy, unspecified, not intractable, without status epilepticus Alcohol dependence, uncomplicated Surgical History History of neck surgery History of back surgery H/O foot surgery H/O thumb surgery History of esophagogastroduodenoscopy (EGD) History of colonoscopy Family History Father Cancer Aneurysm Mother Cancer Social History marital status: unknown household members: none lives independently: Yes housing: other ([facility]) Smoking Status: Current every day smoker alcohol intake: current Assessment & Plan Assessment & Plan narrative: 1. Alcohol Withdrawal, present on admission and resolved with mild residual acute encephalopathy 2. NSVT, new and improved. 3. Severe alcohol use disorder, present on admission and active. 4. Epilepsy, present on admission and active. 5. Hyponatremia, present on admission and stable. 6. 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 7. HTN, present on admission and active. 8. Right arm Laceration /left elbow contusion, present on admission and active. 9. Hypokalemia/hypomagnesemia. 10. Supratherapeutic dilantin level from possible amiodarone-dilantin interaction. PLAN: -declines IVF. -continue to follow mental status. -continue limited medications based on goals of care. Patient not interested in therapy but may be in the next few days depending on progress with diet and medication changes. -looking into options for end of life care. -placed on comfort measures based on patient preferences while lucid. Given refusing medications stopped dilantin as well, has not received in over a week without any seizure activity. -Did order for marinol yesterday to see if overall improvement in lethargy and appetite which may be working based on the last day but increased activity and getting out of bed overnight last night. Will stop evening marinol, if more alert and still confused consider trial of early evening low dose seroquel which was attempted before. Discussed with bedside RN, case management to contribute to above history, assessment and plan. Now pending Medicaid application for possible assisted living placement. Financial POA will also need to be officially determined. Friends unable to provide support at home. Time-Based Coding :: [TOTAL MINUTES] spent with patient and on the chart (including review of chart, obtaining history, exam, reviewing outside data, placing orders, documenting exam and treatment plan, and counseling patient) on [DATE].
[2023-10-21 19:30] VITALS: BP 138/81; PULSE 88; O2SAT 92
[2023-10-21 20:08] VITALS: BP 138/81; PULSE 88; RESP 18; TEMP 36.4; O2SAT 95
[2023-10-22] MEDS: droNABinol 2.5 MG CAPSULE PO (09:53)
[2023-10-22 12:00] VITALS: RESP 17; TEMP 36.3
[2023-10-22 12:32] VITALS: PULSE 77; O2SAT 97
[2023-10-22 12:33] VITALS: BP 144/94; O2SAT 97
--- NOTE | 2023-10-22 13:07 | CM.DPNOTE ---
EDGAR Hughes Spoke with Yolanda Brayden, [facility] / [email or web address]. According to this conversation; Patient scheduled for functional CARES assessment 10/23 at 1100. Yolanda will need clinical emailed the morning of 10/23 with a 7 day look back period. Discussed financial POA requirement and Yolanda explains that since patient is decisional he will not require financial POA. According to Swati Guerrero, administrative services manager, also a notary, patient's VA ID is allowable although he will need to have the card present, a photo copy is not allowable. Met w/patient and his friend Joel; updated with above. Mo agrees to look for patient's VA ID and/or passport (also allowable) in patient's apt. Mo agreeable to being patient's financial POA if it were to be needed. Discussed need for emt intermediate, structured care in an [facility] vs [facility] with patient and he remains agreeable. Friend Joel plans to speak with [facility] landlord/human resources manager manufacturing today as rent is due for patient's apt 10/22. Patient has not yet lost his apt. Plan: Anticipate patient will discharge to a [facility] skilled nursing care facility [facility] vs [facility] once secured. CM team following closely for coordination of discharge plan. PB
--- NOTE | 2023-10-22 18:33 | P.PN_ITS ---
Subjective Subjective Interval history: He did eat again today, also with a better night. More stable behvaior. Exam Vital Signs (past 8 hours): - 10/22/23 12:00 10/22/23 12:32 10/22/23 12:33 Temperature 97.4 F L Pulse Rate 77 Respiratory Rate 17 Blood Pressure Pulse Oximetry 97 97 10/22/23 12:33 Temperature Pulse Rate Respiratory Rate Blood Pressure 144/94 H Pulse Oximetry Oxygen Delivery Method Room Air Oxygen Flow Rate 0 Narrative Exam Narrative: Alert today, more interactive though minimal responses. No apparent distress. Heart is regular rate and rhythm without murmur Lungs are clear to auscultation bilaterally Abdomen is soft, bowel sounds positive, nontender, no organomegaly. Extremities have no ankle edema. Objective Labs 10/15/23 08:12 10/15/23 08:12 [facility] Medical History Cognitive deficits Chronic hyponatremia Left elbow fracture Broken neck Multiple falls Cervical spondylosis with myelopathy Marijuana dependence Osteoarthritis Memory loss Osteoarthrosis Epilepsy, unspecified, not intractable, without status epilepticus Alcohol dependence, uncomplicated Surgical History History of neck surgery History of back surgery H/O foot surgery H/O thumb surgery History of esophagogastroduodenoscopy (EGD) History of colonoscopy Family History Father Cancer Aneurysm Mother Cancer Social History marital status: unknown household members: none lives independently: Yes housing: other ([facility]) Smoking Status: Current every day smoker alcohol intake: current Assessment & Plan Assessment & Plan narrative: 1. Alcohol Withdrawal, present on admission and resolved with mild residual acute encephalopathy 2. NSVT, new and improved. 3. Severe alcohol use disorder, present on admission and active. 4. Epilepsy, present on admission and active. 5. Hyponatremia, present on admission and stable. 6. 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 7. HTN, present on admission and active. 8. Right arm Laceration /left elbow contusion, present on admission and active. 9. Hypokalemia/hypomagnesemia. 10. Supratherapeutic dilantin level from possible amiodarone-dilantin interaction. PLAN: -declines IVF. -continue to follow mental status. -continue limited medications based on goals of care. Patient not interested in therapy but may be in the next few days depending on progress with diet and medication changes, though focus is on terminal press operator care at this time. -looking into options for residential care. -placed on comfort measures based on patient preferences while lucid. Given refusing medications stopped dilantin as well, has not received in over a week without any seizure activity. -Did order for marinol yesterday to see if overall improvement in lethargy and appetite which may be working based on the last day but increased activity. Now with daily dosing as the night dosing seemed to cause more delirium and agitation at night. Discussed with bedside RN, case management to contribute to above history, assessment and plan. Now pending residential care placement. Time-Based Coding :: [TOTAL MINUTES] spent with patient and on the chart (including review of chart, obtaining history, exam, reviewing outside data, placing orders, documenting exam and treatment plan, and counseling patient) on [DATE].
[2023-10-22 20:00] VITALS: BP 143/93; PULSE 81; RESP 16; TEMP 35.9; O2SAT 97
--- NOTE | 2023-10-23 07:38 | PM.PN.1 ---
Subjective Subjective Interval history: S: He was more alert today. He denies any pain. He did eat breakfast. Exam Vital Signs (past 8 hours): Oxygen Delivery Method Room Air Oxygen Flow Rate 0 Narrative Exam Narrative: NAD, alert and oriented. Fluent speech. Lungs are clear, normal rate and effort. Heart is regular, no murmur gallop or rub. Abdomen is soft, non distended. Extremities are free of edema. Objective Labs 10/15/23 08:12 10/15/23 08:12 [facility] Medical History Cognitive deficits Chronic hyponatremia Left elbow fracture Broken neck Multiple falls Cervical spondylosis with myelopathy Marijuana dependence Osteoarthritis Memory loss Osteoarthrosis Epilepsy, unspecified, not intractable, without status epilepticus Alcohol dependence, uncomplicated Surgical History History of neck surgery History of back surgery H/O foot surgery H/O thumb surgery History of esophagogastroduodenoscopy (EGD) History of colonoscopy Family History Father Cancer Aneurysm Mother Cancer Social History marital status: unknown household members: none lives independently: Yes housing: other ([facility]) Smoking Status: Current every day smoker alcohol intake: current Assessment & Plan Assessment & Plan narrative: 1. Alcohol Withdrawal, present on admission and resolved with mild residual acute encephalopathy 2. NSVT, new and improved. 3. Severe alcohol use disorder, present on admission and active. 4. Epilepsy, present on admission and active. 5. Hyponatremia, present on admission and stable. 6. 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 7. HTN, present on admission and active. 8. Right arm Laceration /left elbow contusion, present on admission and active. 9. Hypokalemia/hypomagnesemia. 10. Supratherapeutic dilantin level from possible amiodarone-dilantin interaction. PLAN: -encourage mobilization with therapy. -continue to follow course, continue Marinol, and encourage oral intake. Time-Based Coding :: 20 min spent with patient and on the chart (including review of chart, obtaining history, exam, reviewing outside data, placing orders, documenting exam and treatment plan, and counseling patient) on 10/22.
[2023-10-23] MEDS: ENOXAPARIN 40 MG/0.4 ML SYRINGE SUBCUT (09:07)
[2023-10-23] MEDS: droNABinol 2.5 MG CAPSULE PO (09:07)
[2023-10-23 09:13] VITALS: BP 143/80; PULSE 71; RESP 16; TEMP 36.6; O2SAT 97
--- NOTE | 2023-10-23 11:19 | PT.IPRE ---
Current Diagnoses Hypo-osmolality and hyponatremia (10/03/23) Alcohol use, unspecified with withdrawal, uncomplicated (10/03/23) Other abnormalities of gait and mobility (10/03/23) Other symptoms and signs involving cognitive functions and awareness (10/03/23) Surgical History (Last Reviewed 10/13/23 @ 07:31 by Federico Azar MD) H/O foot surgery H/O thumb surgery History of back surgery History of colonoscopy History of esophagogastroduodenoscopy (EGD) History of neck surgery Medical History (Last Reviewed 10/13/23 @ 07:31 by Federico Azar MD) Alcohol dependence, uncomplicated Broken neck Cervical spondylosis with myelopathy Chronic hyponatremia Cognitive deficits Epilepsy, unspecified, not intractable, without status epilepticus Left elbow fracture Marijuana dependence Memory loss Multiple falls Osteoarthritis Osteoarthrosis Physical Therapy Inpatient Evaluation/Re-Eval M1 PT/OT-IP Prior Functional Status Start: 10/07/23 17:06 Freq: NEEDED Status: Active Protocol: Document 10/23/23 10:53 MB (Rec: 10/23/23 11:19 MB [id number]) Medical Review Prior Functional Status Medical History Reviewed Yes Communication Unsure baseline diet, pt states he does not want to talk about it, but he drinks a lot Mobility and Gait Pt states he just got a RW for use Activities of Daily Living and IADL's pt stated that he bathed himself in the shower about once a week. pt does not drive . pt uses the microwave for meals or has friends Mariano and Glen bring meals. Prior Functional Level (Other details) Pt cannot recall if or how much he is falling at home d/t I drink too much Social History Household Members none Living Arrangements Apartment/Condo Number of Floors (Floors) One Floor Number of Stairs To Enter/Railing? pt stays on a 3rd floor apartment with access to an elevator Home Environment Standard Height Toilet,Walk in Shower Home Equipment Front Wheel Walker,Straight Cane,Hand Held Shower,Grab Bars Near Toilet,Grab Bars In Shower M2 PT-IP Current Condition Start: 10/07/23 17:06 Freq: NEEDED Status: Active Protocol: Document 10/07/23 15:22 AB (Rec: 10/07/23 17:21 AB [id number]) Physical Therapy Current Condition Current Condition Evaluation Date 10/07/23 Treatment Diagnosis alcohol withdrawal; difficulty in walking Onset Date 10/03/23 M3 PT-IP Subjective Start: 10/07/23 17:06 Freq: NEEDED Status: Active Protocol: Document 10/23/23 10:53 MB (Rec: 10/23/23 11:19 MB [id number]) Subjective Physical Therapy Visit Type Type Re-Evaluation Visit Start Time 10:53 Visit Stop Time 11:05 Number of JUNIOR SALES REPRESENTATIVE Visits 0 Physical Therapy Visit Comments Patient Comments Pt is agreeable to mobility, con't to c/o right forearm pain near where he is a dressing and right thumb and index finger pain, history of left shoulder fracture and decreased use Therapy Pain Assessment Pain When Pain Assessed At Rest Pain Present Pain Present Pain Reported M4 PT-IP Mobility and Gait Start: 10/07/23 17:06 Freq: NEEDED Status: Active Protocol: Document 10/23/23 10:53 MB (Rec: 10/23/23 11:19 MB [id number]) PT-Bed Mobility Assessment Supine to Sit Supine to Sit Standby Assistance,1 Person Assistance,Head of Bed Elevated,Bedrails Scooting Scooting to Edge of Bed Standby Assistance PT-Transfer Assessment Sit to and From Stand Sit to and from Stand Minimal Assistance,1 Person Assistance,Use of Upper Extremities Equipment Transfer Assistive Device Gait Belt,Front Wheeled Walker Transfers Transfer Destination Bed Transfer Technique Stepping Transfer Ability Level of Assist Maximum Assistance,1 Person Assistance,Use of Upper Extremities Comments Mobility Comments Strong posterior lean and decreased feet clearance with gait, heavy forefoot WB and pt reports B feet hurt with WB Gait Assessment Gait Gait Assistance Required: Maximum Assistance,1 Person Assist Distance (Feet) 1 Assistive Devices Assistive Device Gait Belt,Front Wheeled Walker Orthotic/Prosthetic Devices or Brace: No Gait Deviations General Gait Pattern Antalgic,Decreased Stride Length,Decreased Feet Clearance,Narrow Based Gait Factors Limiting Gait Function Factors Limiting Gait Function Abnormal Tonal Influences, Decreased Activity Tolerance, Decreased Strength,Difficulty Following Directions, Incoordination,Limited Range of Motion,Pain,Poor Balance, Poor Safety Awareness Comments Gait Comments Posterior lean, tight PFs and hamstrings noted PT-Balance Assessment Sitting Balance and Reactions Static Sitting Balance Ability Fair Dynamic Sitting Balance Ability Fair Standing Balance and Reactions Static Standing Balance Ability Poor Dynamic Standing Balance Ability Poor Device Used RW M5 PT-IP Objective Assessments Start: 10/07/23 17:06 Freq: NEEDED Status: Active Protocol: Document 10/23/23 10:53 MB (Rec: 10/23/23 11:19 MB [id number]) Orientation Orientation/Cognition Comments A&O to self and hospital and not to month, date, day of week or year. Pt knows that he is in the hospital for drinking issues Gross Range of Motion Upper Extremity ROM Assessment Bilaterally Impaired Impairments Arthritic changes right hand and pain and left shoulder with limited use Lower Extremity ROM Assessment Bilaterally Impaired Impairments B hamstring and PF tension/ flexion tone increased Strength Lower Extremity Strength Assessment Bilaterally Impaired Comments Strength Comments Pt does not tolerate MMT LEs and strength is no greater than 2+/5 B knee extension and PF tone for B ankles and no foot clearance with attempted standing and stepping, hips weak with posterior lean and reduced hip extension in standing Coordination Assessment Gross Coordination Gross Coordination Impaired Muscle Tone Muscle Tone WNL No M6 PT-IP Treatment Start: 10/07/23 17:06 Freq: NEEDED Status: Active Protocol: Document 10/08/23 10:30 AB (Rec: 10/08/23 17:28 AB [id number]) Physical Therapy Treatment Education Education Provided Safety M7 PT-IP Assessment and Plan Start: 10/07/23 17:06 Freq: NEEDED Status: Active Protocol: Document 10/23/23 10:53 MB (Rec: 10/23/23 11:19 MB [id number]) PT Summary Assessment and Plan Potential Rehabilitation Potential Fair Status of Condition at Evaluation Evolving Summary Impairments Pain,ROM,Strength,Balance, Coordination,Sensation,Tone, Cognition,Bed Mobility, Transfers,Gait,Activity Tolerance Progress Towards Goals Slow Progress due to Pain,Slow Progress due to Medical Issues,Slow Progress due to Activity Tolerance Assessment Summary Pt is much more alert/awake and ready to participate with PT. He presents with impairments in all limbs with left shoulder issue, right forearm pain starting at dressing and down to thumb and index finger with arthritic changes and some redness, B hamstring and PF tension/ flexion tone today and weakness. Pt requires SBA to get to EOB, min A to stand and max A to stand and take some steps to the chair. He may be ready for cognitive assessment and OT is re-ordered as well. Goals Bed Mobility Goal Independent Transfer Goal Standby Assistance,Front Wheeled Walker Gait Goal Standby Assistance,Front Wheel Walker Gait Distance 75 Days to Meet Goals 10 Frequency of Treatment Frequency Of Treatment Once a Day Treatment Plan Physical Therapy Treatment Plan Bed Mobility Training,Transfer Training,Gait Training, Therapeutic Exercise,Balance Retraining,Discharge Planning, Hot or Cold Pack,Neuromuscular Re-ed,Coordination Retraining ,Manual Therapy Precautions Other Precautions Falls Weight Bearing Status Allowed Weight Bearing Amount (enter % No WB limitations or #) (%) Recommendations To Nursing Amount of Assist Needed 2 Person Assist Discharge Recommendations Other Discharge Recommendations SNF vs SENIOR LIVING Transportation Needs at Discharge Private Vehicle,Wheelchair/ Cabulance
[2023-10-23] MEDS: TAMSULOSIN 0.4 MG CAPSULE PO (12:22)
--- NOTE | 2023-10-23 13:26 | OT.IPRE ---
Current Diagnoses Hypo-osmolality and hyponatremia (10/03/23) Alcohol use, unspecified with withdrawal, uncomplicated (10/03/23) Other abnormalities of gait and mobility (10/03/23) Other symptoms and signs involving cognitive functions and awareness (10/03/23) Past Medical History (Last Reviewed 10/13/23 @ 07:31 by Federico Azar MD) Alcohol dependence, uncomplicated Broken neck Cervical spondylosis with myelopathy Chronic hyponatremia Cognitive deficits Epilepsy, unspecified, not intractable, without status epilepticus Left elbow fracture Marijuana dependence Memory loss Multiple falls Osteoarthritis Osteoarthrosis Surgical History (Last Reviewed 10/13/23 @ 07:31 by Federico Azar MD) H/O foot surgery H/O thumb surgery History of back surgery History of colonoscopy History of esophagogastroduodenoscopy (EGD) History of neck surgery Occupational Therapy Inpatient Evaluation/Re-Eval M1 PT/OT-IP Prior Functional Status Start: 10/07/23 17:06 Freq: NEEDED Status: Active Protocol: Document 10/23/23 13:30 [facility] (Rec: 10/23/23 13:48 [facility] [id number]) Medical Review Prior Functional Status Medical History Reviewed Yes Communication Mobility and Gait Pt states he just got a RW for use Activities of Daily Living and IADL's pt stated that he bathed himself in the shower about once a week. pt does not drive . pt uses the microwave for meals or has friends Mariano and Glen bring meals. Prior Functional Level (Other details) Pt cannot recall if or how much he is falling at home d/t I drink too much Social History Household Members none Living Arrangements Apartment/Condo Number of Floors (Floors) One Floor Number of Stairs To Enter/Railing? pt stays on a 3rd floor apartment with access to an elevator Home Environment Standard Height Toilet,Walk in Shower Home Equipment Front Wheel Walker,Straight Cane,Hand Held Shower,Grab Bars Near Toilet,Grab Bars In Shower M2 OT-IP Current Condition Start: 10/08/23 12:09 Freq: Status: Active Protocol: Document 10/23/23 13:30 [facility] (Rec: 10/23/23 13:48 [facility] [id number]) Occupational Therapy Current Condition Current Condition Evaluation Date 10/23/23 Treatment Diagnosis ETOH withdrawal and weakness Diagnosis Onset Date 10/03/23 M3 OT- IP Subjective and Pain Start: 10/08/23 12:09 Freq: Status: Active Protocol: Document 10/23/23 13:30 [facility] (Rec: 10/23/23 13:48 [facility] [id number]) OT- Subjective Occupational Therapy Visit Type Type Re-Evaluation Visit Start Time 12:55 Visit Stop Time 13:26 Occupational Therapy Visit Comments Patient Comments Pt agreed to get up and do SLUMS. Patient/Caregiver Goals TO get better. OT Pain Assessment Pain When Pain Assessed During Mobility Pain Present Pain Present Pain Reported Location R wrist Description Burning,Stabbing M4 OT- IP ADL's Start: 10/08/23 12:09 Freq: Status: Active Protocol: Document 10/23/23 13:30 [facility] (Rec: 10/23/23 13:48 [facility] [id number]) OT [id number] Comments OT Self-Feeding Comments Pt able to eat his meal with utensils and hands for hamburger. OT ADL-Grooming Comments OT Grooming Comments Not performed. OT ADL-Oral Care Comments Oral Care Comments Not performed. OT ADL-Dressing General Eval Lower Body Dressing Ability Moderate Assistance Comments OT Dressing Comments Pt able to noe/doff socks while seated but if having to pull up items will need assist due to poor balance. OT ADL-Toileting Comments OT Toileting Comments Not performed. OT ADL-Bathing Comments OT Bathing Comments Not performed. M5 OT- IP IADL's Start: 10/08/23 12:09 Freq: Status: Active Protocol: Document 10/23/23 13:30 [facility] (Rec: 10/23/23 13:48 [facility] [id number]) OT-Instrumental Activities of Daily Living Deficits IADL Deficits Identified Deficits Home Safety Awareness Ability to Problem Solve Emergency Able to Problem Solve Situations Home Safety Comments Pt able to answer home safety situations with 90% accuracy. Medication Management Medication Management Comments Pt will benefit form assist. Money Management Money Management Comments Pt will benefit from assist. Meal Preparation Meal Preparation Comments Pt will benefit from assist. Ice Cream Chef Ice Cream Chef Comments Pt will benefit from assist. Driving Driving Comments Pt states does not drive. M6 OT- IP Functional Cognition Start: 10/08/23 12:09 Freq: Status: Active Protocol: Document 10/23/23 13:30 [facility] (Rec: 10/23/23 13:48 [facility] [id number]) Cognitive Factors Limiting Selfcare Function Cognitive Ability Level of Alertness Alert Patient Orientation Name,Age,Birthday,Month,Year, Day of Week,Place,Situation Attention Span Ability Capable of Focused Attention, Capable of Sustained Attention Ability to Follow Commands Able to Follow One Step Commands Memory Description Short Term Impaired Cognitive Tests SLUMS Pt score 16/30 which implies dementia. Pt not able to subtract 100-23, able to recall 8 animals in one minute , able to recall 2/5 objects after time passed, not able to states 4 digit number backwards, not able to draw the numbers or hour hands on the clock correctly, and able to answer 3/4 questions right after paragraph read. Cognitive Comments Cognitive Assessment Comments Pt is very pleasant and able to follow ADL and mobility needs. OT- Vision and Hearing OT- Hearing Assessment OT- Hearing Assessment WFL OT- Vision Assessment Visual Acuity WFL M7 OT- IP Mobility and Balance Start: 10/08/23 12:09 Freq: Status: Active Protocol: Document 10/23/23 13:30 [facility] (Rec: 10/23/23 13:48 [facility] [id number]) OT-Transfer Assessment Sit to and From Stand Sit to and from Stand Maximum Assistance Technique Transfer Destination Chair Comments Mobility Comments Pt having lots of right wrist pain and appears red and swollen and having difficulty to use to push up from the chair to stand. Pt needing MAX AX 1 to stand. Pt heavily leans backwards and not able to maintain his balance and needing needing assist to sit down. OT- Balance Assessment Sitting Balance and Reactions Static Sitting Balance Ability Good Dynamic Sitting Balance Ability Fair Standing Balance and Reactions Static Standing Balance Ability Poor Dynamic Standing Balance Ability Poor M8 OT- IP Objective Assessments Start: 10/08/23 12:09 Freq: Status: Active Protocol: Document 10/23/23 13:30 [facility] (Rec: 10/23/23 13:48 [facility] [id number]) OT Gross Range of Motion Upper Extremity Range of Motion ROM Impairments R UE grossly WFL. L shoulder limited to ~45 degrees of scaption. L elbow/forearm/ wrist/hand WFL OT Strength Comments Strength Comments Arthritic changes in hand R>L OT- Coordination Assessment Upper Extremity Finger to Nose Test Within Functional Limits M9 OT- IP Assessment and Plan Start: 10/08/23 12:09 Freq: Status: Active Protocol: Document 10/23/23 13:30 [facility] (Rec: 10/23/23 13:48 [facility] [id number]) OT Summary Assessment and Plan Potential Rehabilitation Potential Fair Analytic Complexity at Evaluation Moderate Summary OT Impairments Pain,Range of Motion,Strength, Balance,Coordination, Functional Cognition, Functional Mobility,Grooming, Dressing,Toileting,Bathing, Toilet Transfers,Shower Transfers,Activity Tolerance Progress Towards Goals Slow Progress due to Pain,Slow Progress due to Medical Issues,Slow Progress due to Activity Tolerance,Slow Progress due to Cognition Assessment Summary Pt is cooperative and pleasant and main barriers are decreases balance, pain, and will benefit skilled rehab to improve his ADl and mobility need as currently pt leans posteriorly and poor awareness of his midline at this time. Pt would benefit from skilled rehab to maximize his level of independence and afterwards benefit from [facility] or [facility]. Goals Self-Feeding Goal Independent Grooming Goal Standby Assistance Dressing Goal Contact Guard Assistance Toileting Goal Contact Guard Assistance Bathing Goal Minimal Assistance Toilet Transfer Goal Contact Guard Assistance Shower Transfer Goal Minimal Assistance Days to Meet Goals 25 Frequency of Treatment Other frequency 5x/week Treatment Plan OT Treatment Plan ADL Training,Functional Cognition Training,Functional Mobility,IADL Training, Therapeutic Exercises,Patient/ Family Education,Discharge Planning Discharge Recommendations OT Discharge Recommendations SNF Rehab Transportation Needs at Discharge Wheelchair/Cabulance
[2023-10-23] MEDS: ACETAMINOPHEN 325 MG TABLET 650 MG PO (13:27)
--- NOTE | 2023-10-23 13:35 | DI.RAD.S_ITS ---
PROCEDURE: XR WRIST RT 2V INDICATIONS: Pain TECHNIQUE: 3 views of the wrist were acquired. COMPARISON: None. FINDINGS: Bones: No fractures or dislocations. No suspicious bony lesions. Generalized decreased osseous mineralization noted. Generalized decreased osseous mineralization noted. Soft tissues: Degenerative triscaphe joint changes IMPRESSION: Degenerative triscaphe joint changes Osteopenia and small vessel atherosclerosis Approved by: Heriberto Root M.D. on 10/23/2023 at 15:31
[2023-10-23 20:00] VITALS: BP 117/75; PULSE 85; RESP 18; TEMP 36.8; O2SAT 95
[2023-10-24 08:00] VITALS: BP 125/71; PULSE 74; RESP 19; TEMP 36.5; O2SAT 98
--- NOTE | 2023-10-24 08:36 | P.PN_ITS ---
Subjective Subjective Interval history: He was admitted initially with alcohol withdrawal and had a deep and persistent. Of metabolic encephalopathy. He initially had atrial fibrillation with RVR and was given amiodarone for approximately 2 days. There is a question of interaction with this and his Dilantin that may have caused him more persistent encephalopathy that is now clearing. He has been doing well since October 21, more alert and interactive. He was been participating in therapy and eating. S: He was doing well, he breakfast. He denies any pain concerns other than his right wrist is tender. An x-ray yesterday revealed only arthritic changes. His appetite is much improved. He was eager to participate with physical therapy today. Exam Vital Signs (past 8 hours): - 10/24/23 08:00 Temperature 97.7 F Pulse Rate 74 Respiratory Rate 19 Blood Pressure 125/71 Pulse Oximetry 98 Oxygen Delivery Method Room Air Oxygen Flow Rate 0 Narrative Exam Narrative: NAD, alert and oriented. Fluent speech. Lungs are clear, normal rate and effort. Heart is regular, no murmur gallop or rub. Abdomen is soft, non distended. Extremities are free of edema. Objective Labs 10/15/23 08:12 10/15/23 08:12 [facility] Medical History Cognitive deficits Chronic hyponatremia Left elbow fracture Broken neck Multiple falls Cervical spondylosis with myelopathy Marijuana dependence Osteoarthritis Memory loss Osteoarthrosis Epilepsy, unspecified, not intractable, without status epilepticus Alcohol dependence, uncomplicated Surgical History History of neck surgery History of back surgery H/O foot surgery H/O thumb surgery History of esophagogastroduodenoscopy (EGD) History of colonoscopy Family History Father Cancer Aneurysm Mother Cancer Social History marital status: unknown household members: none lives independently: Yes housing: other ([facility]) Smoking Status: Current every day smoker alcohol intake: current Assessment & Plan Assessment & Plan narrative: 1. Alcohol Withdrawal, present on admission and resolved with mild residual acute encephalopathy 2. NSVT, new and improved. 3. Severe alcohol use disorder, present on admission and active. 4. Epilepsy, present on admission and active. 5. Hyponatremia, present on admission and stable. 6. 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 7. HTN, present on admission and active. 8. Right arm Laceration /left elbow contusion, present on admission and active. 9. Hypokalemia/hypomagnesemia. 10. Supratherapeutic dilantin level from possible amiodarone-dilantin interaction. 11. Right wrist pain likely secondary to arthritis, present on admission and stable. PLAN: -encourage mobilization with therapy. -continue to follow course, continue Marinol, and encourage oral intake. -discuss with social work, regarding discharge planning. He would likely be a reasonable candidate for retirement facility at this point. Time-Based Coding :: 20 min spent with patient and on the chart (including review of chart, obtaining history, exam, reviewing outside data, placing orders, documenting exam and treatment plan, and counseling patient) on 10/23.
[2023-10-24] MEDS: TAMSULOSIN 0.4 MG CAPSULE PO (09:13)
[2023-10-24] MEDS: ENOXAPARIN 40 MG/0.4 ML SYRINGE SUBCUT (09:13)
[2023-10-24] MEDS: droNABinol 2.5 MG CAPSULE PO (09:13)
--- NOTE | 2023-10-24 14:27 | OT.IP.TRT ---
Current Diagnoses Hypo-osmolality and hyponatremia (10/03/23) Alcohol use, unspecified with withdrawal, uncomplicated (10/03/23) Other abnormalities of gait and mobility (10/03/23) Other symptoms and signs involving cognitive functions and awareness (10/03/23) Occupational Therapy Treatment Note M2 OT-IP Current Condition Start: 10/08/23 12:09 Freq: Status: Active Protocol: Document 10/23/23 13:30 [facility] (Rec: 10/23/23 13:48 [facility] [id number]) Occupational Therapy Current Condition Current Condition Evaluation Date 10/23/23 Treatment Diagnosis ETOH withdrawal and weakness Diagnosis Onset Date 10/03/23 M3 OT- IP Subjective and Pain Start: 10/08/23 12:09 Freq: Status: Active Protocol: Document 10/24/23 14:41 [facility] (Rec: 10/24/23 14:50 [facility] [id number]) OT- Subjective Occupational Therapy Visit Type Type Treatment Note Visit Start Time 14:27 Visit Stop Time 14:36 Occupational Therapy Visit Comments Patient Comments Pt just in the bathroom when OT came to see pt. Patient/Caregiver Goals To get better. OT Pain Assessment Pain When Pain Assessed At Rest Pain Present Pain Present Denied Pain M4 OT- IP ADL's Start: 10/08/23 12:09 Freq: Status: Active Protocol: Document 10/24/23 14:41 [facility] (Rec: 10/24/23 14:50 [facility] [id number]) OT [id number] Comments OT Self-Feeding Comments Not at meal time. OT ADL-Grooming Comments OT Grooming Comments Pt needing assist to wash his hands with wash cloth as his hands are soiled, espcially underneath his nails. Nursing aid also present to assist pt. OT ADL-Oral Care Comments Oral Care Comments Not performed. OT ADL-Dressing Comments OT Dressing Comments Not performed. OT ADL-Toileting General Evaluation Toileting Ability Moderate Assistance Areas Needing Assistance Manage Clothing,Perform Perineal Hygiene Comments OT Toileting Comments Assist for completeness of hygiene and brief management needs. M5 OT- IP IADL's Start: 10/08/23 12:09 Freq: Status: Active Protocol: Document 10/23/23 13:30 [facility] (Rec: 10/23/23 13:48 [facility] [id number]) OT-Instrumental Activities of Daily Living Deficits IADL Deficits Identified Deficits Home Safety Awareness Ability to Problem Solve Emergency Able to Problem Solve Situations Home Safety Comments Pt able to answr home safety situations with 90% accuracy. Medication Management Medication Management Comments Pt will benefit form assist. Money Management Money Management Comments Pt will benefit from assist. Meal Preparation Meal Preparation Comments Pt will benefit from assist. Food Services Manager Food Services Manager Comments Pt will benefit from assist. Driving Driving Comments Pt states does not drive. M6 OT- IP Functional Cognition Start: 10/08/23 12:09 Freq: Status: Active Protocol: Document 10/24/23 14:41 [facility] (Rec: 10/24/23 14:50 [facility] [id number]) Cognitive Factors Limiting Selfcare Function Cognitive Ability Level of Alertness Alert Patient Orientation Name,Age,Birthday,Month,Year, Day of Week,Place,Situation Attention Span Ability Capable of Focused Attention, Capable of Sustained Attention Ability to Follow Commands Able to Follow One Step Commands Memory Description Short Term Impaired Safety Awareness Underestimates Need for Assistance Problem Solving Ability Needs Assist to Identify Solutions Cognitive Comments Cognitive Assessment Comments Pt needing vc for completeness for hygiene needs after toileting. VC for safety awareness for FWW. Pt can be a little impulsive at times but easily redirected. M7 OT- IP Mobility and Balance Start: 10/08/23 12:09 Freq: Status: Active Protocol: Document 10/24/23 14:41 [facility] (Rec: 10/24/23 14:50 [facility] [id number]) OT- Bed Mobility Assessment Supine to Sit Supine to Sit Assist Minimal Assistance OT-Transfer Assessment Sit to and From Stand Sit to and from Stand Moderate Assistance Transfers Transfer Ability Moderate Assistance Technique Transfer Destination Bed,Toilet Transfer Technique Stand Step Pivot Devices Transfer Assistive Devices Gait Belt,Front Wheeled Walker Comments Mobility Comments Pt heavy use of grab bar to stand to the FWW and assist. Pt better balance today on his feet. MODA x 1 with FWW to steady the FWW and to assist with his balance. Initially, pt needing FARHANA and then as tiring needing MODA X 1 with FWW. OT- Balance Assessment Sitting Balance and Reactions Static Sitting Balance Ability Good Dynamic Sitting Balance Ability Good Standing Balance and Reactions Static Standing Balance Ability Fair Dynamic Standing Balance Ability Poor M8 OT- IP Objective Assessments Start: 10/08/23 12:09 Freq: Status: Active Protocol: Document 10/23/23 13:30 [facility] (Rec: 10/23/23 13:48 [facility] [id number]) OT Gross Range of Motion Upper Extremity Range of Motion ROM Impairments R UE grossly WFL. L shoulder limited to ~45 degrees of scaption. L elbow/forearm/ wrist/hand WFL OT Strength Comments Strength Comments Arthritic changes in hand R>L OT- Coordination Assessment Upper Extremity Finger to Nose Test Within Functional Limits M9 OT- IP Assessment and Plan Start: 10/08/23 12:09 Freq: Status: Active Protocol: Document 10/24/23 14:41 [facility] (Rec: 10/24/23 14:50 [facility] [id number]) OT Summary Assessment and Plan Potential Rehabilitation Potential Fair Analytic Complexity at Evaluation Moderate Summary OT Impairments Pain,Range of Motion,Strength, Balance,Coordination, Functional Cognition, Functional Mobility,Grooming, Dressing,Toileting,Bathing, Toilet Transfers,Shower Transfers,Activity Tolerance Progress Towards Goals Progressing Toward Goals Assessment Summary Pt moving better today and able to walk into the bathroom with assist for balance and completeness of hygiene needs. Pt would still benefit from SNF initially versus INTERMEDI[facility]/AFH to maximize his mobility needs . Goals Self-Feeding Goal Independent Grooming Goal Standby Assistance Dressing Goal Standby Assistance Toileting Goal Contact Guard Assistance Bathing Goal Minimal Assistance Toilet Transfer Goal Standby Assistance Shower Transfer Goal Contact Guard Assistance Days to Meet Goals 25 Frequency of Treatment Other frequency 5x/week Treatment Plan OT Treatment Plan ADL Training,Functional Cognition Training,Functional Mobility,IADL Training, Therapeutic Exercises,Patient/ Family Education,Discharge Planning Discharge Recommendations OT Discharge Recommendations SNF Rehab Transportation Needs at Discharge Wheelchair/Cabulance
--- NOTE | 2023-10-24 14:40 | PT.IPTN ---
Current Diagnoses Hypo-osmolality and hyponatremia (10/03/23) Alcohol use, unspecified with withdrawal, uncomplicated (10/03/23) Other abnormalities of gait and mobility (10/03/23) Other symptoms and signs involving cognitive functions and awareness (10/03/23) Physical Therapy Treatment Note M2 PT-IP Current Condition Start: 10/07/23 17:06 Freq: NEEDED Status: Active Protocol: Document 10/07/23 15:22 AB (Rec: 10/07/23 17:21 AB [id number]) Physical Therapy Current Condition Current Condition Evaluation Date 10/07/23 Treatment Diagnosis alcohol withdrawal; difficulty in walking Onset Date 10/03/23 M3 PT-IP Subjective Start: 10/07/23 17:06 Freq: NEEDED Status: Active Protocol: Document 10/24/23 14:40 [facility] (Rec: 10/24/23 17:36 AB [id number]) Subjective Physical Therapy Visit Type Type Treatment Note Visit Start Time 14:40 Visit Stop Time 14:55 Number of DIRECTOR OF CASINO MARKETING Visits 0 Physical Therapy Visit Comments Patient Comments agreeable to do PT M4 PT-IP Mobility and Gait Start: 10/07/23 17:06 Freq: NEEDED Status: Active Protocol: Document 10/24/23 14:40 AB (Rec: 10/24/23 17:36 AB [id number]) PT-Bed Mobility Assessment Supine to Sit Supine to Sit Standby Assistance Sit to Supine Sit to Supine Standby Assistance PT-Transfer Assessment Sit to and From Stand Sit to and from Stand Contact Guard Assistance, Minimal Assistance,1 Person Assistance,Use of Upper Extremities Equipment Transfer Assistive Device Gait Belt,Front Wheeled Walker Comments Mobility Comments pt supine in bed and agreeable to do PT. completed supine to sit SBA with HOB elevated; sit to stand CGA to min A and ambulated in the hallway using FWW min A and cues. presents with unsteagy gait but without LOB with decrease LE elevation and stride. pt ambulated back to his room and requested to go back to bed. completed sit to supine SBA. positioned pt in bed. call light and table placed within reach. Gait Assessment Gait Gait Assistance Required: Minimum Assistance,1 Person Assist Distance (Feet) 100 Able to Maintain Weight Bearing Status Yes During Gait Assistive Devices Assistive Device Gait Belt,Front Wheeled Walker Orthotic/Prosthetic Devices or Brace: No Gait Deviations General Gait Pattern Ataxic,Decreased Stride Length ,Decreased Feet Clearance Factors Limiting Gait Function Factors Limiting Gait Function Decreased Activity Tolerance, Decreased Strength,Difficulty Following Directions,Limited Range of Motion,Poor Balance, Poor Safety Awareness M5 PT-IP Objective Assessments Start: 10/07/23 17:06 Freq: NEEDED Status: Active Protocol: Document 10/23/23 10:53 MB (Rec: 10/23/23 11:19 MB [id number]) Orientation Orientation/Cognition Comments A&O to self and hospital and not to month, date, day of week or year. Pt knows that he is in the hospital for drinking issues Gross Range of Motion Upper Extremity ROM Assessment Bilaterally Impaired Impairments Arthritic changes right hand and pain and left shoulder with limited use Lower Extremity ROM Assessment Bilaterally Impaired Impairments B hamstring and PF tension/ flexion tone increased Strength Lower Extremity Strength Assessment Bilaterally Impaired Comments Strength Comments Pt does not tolerate MMT LEs and strength is no greater than 2+/5 B knee extension and PF tone for B ankles and no foot clearance with attempted standing and stepping, hips weak with posterior lean and reduced hip extension in standing Coordination Assessment Gross Coordination Gross Coordination Impaired Muscle Tone Muscle Tone WNL No M6 PT-IP Treatment Start: 10/07/23 17:06 Freq: NEEDED Status: Active Protocol: Document 10/24/23 14:40 AB (Rec: 10/24/23 17:36 AB [id number]) Physical Therapy Treatment Education Education Provided Safety M7 PT-IP Assessment and Plan Start: 10/07/23 17:06 Freq: NEEDED Status: Active Protocol: Document 10/24/23 14:40 AB (Rec: 10/24/23 17:36 AB [id number]) PT Summary Assessment and Plan Potential Rehabilitation Potential Fair Summary Impairments Pain,ROM,Strength,Balance, Coordination,Sensation,Tone, Cognition,Bed Mobility, Transfers,Gait,Activity Tolerance Progress Towards Goals Slow Progress due to Activity Tolerance Assessment Summary pt improving with mobility and requiring CGA to min A using FWW. pt will continue to require 09/09 assist and will benefit from SNF rehab. will continue to assess progress. Goals Bed Mobility Goal Independent Transfer Goal Independent,Front Wheeled Walker Gait Goal Independent,Front Wheel Walker Gait Distance 150 Days to Meet Goals 10 Frequency of Treatment Frequency Of Treatment Once a Day Treatment Plan Physical Therapy Treatment Plan Bed Mobility Training,Transfer Training,Gait Training, Therapeutic Exercise,Balance Retraining,Discharge Planning, Hot or Cold Pack,Neuromuscular Re-ed,Coordination Retraining ,Manual Therapy Precautions Other Precautions Falls Recommendations To Nursing Amount of Assist Needed 1 Person Assist Discharge Recommendations PT Discharge Recommendations SNF Rehab Transportation Needs at Discharge Private Vehicle,Wheelchair/ Cabulance
--- NOTE | 2023-10-24 16:17 | CM.DPNOTE ---
DCP Cont Yolanda Owen, [facility], completed CARES functional assessment this morning. Completion pending. Attempted contact with [facility], was not successful. Discussed this referral with Kenzie at [facility]; she is considering and will send Darnell Ahumada RN to complete a bedside assessment. Patient may be a [facility] SNF candidate if [facility] approves SNF auth and [place] [facility] vs alt MEG/[facility] is in line for [facility] terminal manager care plan. PASRR needed if patient is discharged to SNF. Patient remains calm and cooperative with care. Patient is hopeful to return home if possible, but is easily redirectable and agrees that he requires assist with care needs at this time. CM team following closely for planning and coordination of discharge plan. PB
[2023-10-24 20:00] VITALS: BP 134/82; PULSE 92; RESP 20; TEMP 37.4; O2SAT 96
--- NOTE | 2023-10-25 01:45 | PT.IPTN ---
Current Diagnoses Hypo-osmolality and hyponatremia (10/03/23) Alcohol use, unspecified with withdrawal, uncomplicated (10/03/23) Other abnormalities of gait and mobility (10/03/23) Other symptoms and signs involving cognitive functions and awareness (10/03/23) Physical Therapy Treatment Note M2 PT-IP Current Condition Start: 10/07/23 17:06 Freq: NEEDED Status: Active Protocol: Document 10/07/23 15:22 AB (Rec: 10/07/23 17:21 AB [id number]) Physical Therapy Current Condition Current Condition Evaluation Date 10/07/23 Treatment Diagnosis alcohol withdrawal; difficulty in walking Onset Date 10/03/23 M3 PT-IP Subjective Start: 10/07/23 17:06 Freq: NEEDED Status: Active Protocol: Document 10/25/23 13:45 AB (Rec: 10/25/23 14:33 AB [id number]) Subjective Physical Therapy Visit Type Type Treatment Note Visit Start Time 13:45 Visit Stop Time 14:15 Number of MILLING/POLISHING OPERATOR Visits 30 Physical Therapy Visit Comments Patient Comments agreeable to do PT M4 PT-IP Mobility and Gait Start: 10/07/23 17:06 Freq: NEEDED Status: Active Protocol: Document 10/25/23 13:45 AB (Rec: 10/25/23 14:33 AB [id number]) PT-Bed Mobility Assessment Supine to Sit Supine to Sit Contact Guard Assistance, Minimal Assistance,Head of Bed Elevated,Bedrails Sit to Supine Sit to Supine Standby Assistance PT-Transfer Assessment Sit to and From Stand Sit to and from Stand Contact Guard Assistance,1 Person Assistance,Use of Upper Extremities Equipment Transfer Assistive Device Gait Belt,Front Wheeled Walker Orthotic/Prosthetic Devices or Brace: No Comments Mobility Comments pt supine in bed and agreeable to do PT. completed supine to sit HOB elevated CGA to min A and cues. pt used bed rail to assist. pt presents difficulty completing bed mobility and needing increase time to completed. pt requested to have his shoes on and assisted pt with donning shoes. pt completed sit to stand from EOB CGA and ambulated in the hallway using FWW CGA to min A ~ 150 ft. ( +) LOB x 2 with turning requiring min A to rebalance. cued for balance, safety. pt went back to bed. SBA to sit to supine. positioned pt in bed. call light and table placed within reach. Talked with insurance healthcare representative regarding d/c plan Gait Assessment Gait Gait Assistance Required: Contact Guard Assist,Minimum Assistance Distance (Feet) 150 Able to Maintain Weight Bearing Status Yes During Gait Assistive Devices Assistive Device Gait Belt,Front Wheeled Walker Orthotic/Prosthetic Devices or Brace: No Gait Deviations General Gait Pattern Ataxic,Decreased Stride Length ,Decreased Feet Clearance Factors Limiting Gait Function Factors Limiting Gait Function Decreased Activity Tolerance, Decreased Strength,Difficulty Following Directions,Limited Range of Motion,Pain,Poor Balance,Poor Safety Awareness M5 PT-IP Objective Assessments Start: 10/07/23 17:06 Freq: NEEDED Status: Active Protocol: Document 10/23/23 10:53 MB (Rec: 10/23/23 11:19 MB [id number]) Orientation Orientation/Cognition Comments A&O to self and hospital and not to month, date, day of week or year. Pt knows that he is in the hospital for drinking issues Gross Range of Motion Upper Extremity ROM Assessment Bilaterally Impaired Impairments Arthritic changes right hand and pain and left shoulder with limited use Lower Extremity ROM Assessment Bilaterally Impaired Impairments B hamstring and PF tension/ flexion tone increased Strength Lower Extremity Strength Assessment Bilaterally Impaired Comments Strength Comments Pt does not tolerate MMT LEs and strength is no greater than 2+/5 B knee extension and PF tone for B ankles and no foot clearance with attempted standing and stepping, hips weak with posterior lean and reduced hip extension in standing Coordination Assessment Gross Coordination Gross Coordination Impaired Muscle Tone Muscle Tone WNL No M6 PT-IP Treatment Start: 10/07/23 17:06 Freq: NEEDED Status: Active Protocol: Document 10/25/23 13:45 AB (Rec: 10/25/23 14:33 AB [id number]) Physical Therapy Treatment Education Education Provided Safety M7 PT-IP Assessment and Plan Start: 10/07/23 17:06 Freq: NEEDED Status: Active Protocol: Document 10/25/23 13:45 AB (Rec: 10/25/23 14:33 AB [id number]) PT Summary Assessment and Plan Potential Rehabilitation Potential Good Summary Impairments Pain,ROM,Strength,Balance, Coordination,Sensation,Tone, Cognition,Bed Mobility, Transfers,Gait,Activity Tolerance Progress Towards Goals Slow Progress due to Medical Issues,Slow Progress - Other Assessment Summary pt improving with mobility and able to ambulate CGA to min A using FWW. able to walk farther today but with (+) LOB requiring min A for steadiness. pt will continue to need 24/7 assist due to decrease cognition affecting safety awareness. pt will benefit from SNF rehab. will continue to assess. Goals Bed Mobility Goal Independent Transfer Goal Independent,Front Wheeled Walker Gait Goal Independent,Front Wheel Walker Gait Distance 150 Days to Meet Goals 10 Frequency of Treatment Frequency Of Treatment Once a Day Treatment Plan Physical Therapy Treatment Plan Bed Mobility Training,Transfer Training,Gait Training, Therapeutic Exercise,Balance Retraining,Discharge Planning, Hot or Cold Pack,Neuromuscular Re-ed,Coordination Retraining ,Manual Therapy Precautions Other Precautions Falls Recommendations To Nursing Amount of Assist Needed 1 Person Assist Discharge Recommendations PT Discharge Recommendations SNF Rehab Transportation Needs at Discharge Private Vehicle,Wheelchair/ Cabulance
[2023-10-25 04:41] LABS: Hemoglobin 9.6 g/dL (13.5-17.5); Mean Corpuscular HGB Conc 34.2 % (30-36); Mean Corpuscular Hemoglobin 32.7 PG (26-34); Mean Corpuscular Volume 95.7 fL (80-100); Platelet Count 292 X10^3/uL (150-400); Red Blood Cell Count 2.93 X10^6/uL (4.5-5.9); Red Cell Distribution Width 13.8 % (11.6-14.8); White Blood Cell Count 5.5 X10^3/uL (4.5-11.0)
[2023-10-25 05:07] LABS: Alanine Aminotransferase 18 IU/L (<50); Albumin 2.7 g/dL (3.5-5.0); Albumin Globulin Ratio 0.9 (1.0-2.8); Alkaline Phosphatase 124 U/L (38-126); Aspartate Aminotransferase 36 IU/L (17-59); BUN Creatinine Ratio 13.8 (6-22); Bilirubin Total 0.3 mg/dL (0.2-1.3); Blood Urea Nitrogen 8 mg/dL (9-20); Calcium 8.6 mg/dL (8.4-10.2); Carbon Dioxide 27 mmol/L (22-32); Chloride 105 mmol/L (98-107); Estimated Glomerular Filt Rate > 60 mL/min (>60); Glucose 107 mg/dL (80-110); HEMOLYSIS < 15 (0-50); Potassium 3.6 mmol/L (3.4-5.1); Sodium 134 mmol/L (137-145); Total Protein 5.7 g/dL (6.3-8.2)
[2023-10-25 08:00] VITALS: BP 179/90; PULSE 78; RESP 16; TEMP 36.5; O2SAT 96
[2023-10-25] MEDS: droNABinol 2.5 MG CAPSULE PO (08:19)
[2023-10-25] MEDS: ENOXAPARIN 40 MG/0.4 ML SYRINGE SUBCUT (08:19)
[2023-10-25] MEDS: TAMSULOSIN 0.4 MG CAPSULE PO (08:19)
--- NOTE | 2023-10-25 14:35 | CM.DPC ---
DCP LTC Planning Cont: Per previous SW note, pt's HCS Functional Assessment was completed by Yolanda on 10/23 when she met with pt bedside and reviewed clinicals from his admissions, now awaiting final assessment to be completed and approved and daily rate. SW was able to get through to [facility] RN Rosalind today (Sat) and she confirms no availability for [facility] to assess patient's on the weekend but that she thinks their week day RN Donato did a bedside assessment with someone on 10/23 but she is unsure if it was this patient or a different assessment and recommends SW call their admin Duncan on Mon AM to confirm if assessment was completed or still needs to be scheduled. SW observed pt ambulating the ramirez with PT and CGA with frequent cueing and reminders and pt is forgetful with lack of safety awareness and does not feel pt SNF candidate but more Lawn Care Worker Care 09/09 likely Adult Family Home vs Assisted Living. Pt and POAs preference is to remain in [place] so that pt can have visitors. Plan: SW to follow closely Mon AM for calling Duncan at [facility] to determine if assessment was completed or still needed by their RN to confirm if they can accept once Medicaid LTC Assessment finalized. Pt might benefit from [facility] or [facility] if [facility] not an option. RAFAEL Sepulveda
--- NOTE | 2023-10-25 15:00 | P.PN_ITS ---
Subjective Subjective Interval history: He was admitted initially with alcohol withdrawal and had a deep and persistent. Of metabolic encephalopathy. He initially had atrial fibrillation with RVR and was given amiodarone for approximately 2 days. There is a question of interaction with this and his Dilantin that may have caused him more persistent encephalopathy that is now clearing. He has been doing well since October 21, more alert and interactive. He was been participating in therapy and eating. S: He is doing well, ambulating to the bathroom. Tolerating a diet. Exam Vital Signs (past 8 hours): - 10/25/23 08:00 Temperature 97.7 F Pulse Rate 78 Respiratory Rate 16 Blood Pressure 179/90 H Pulse Oximetry 96 Oxygen Flow Rate 0 Oxygen Delivery Method Room Air Oxygen Flow Rate 0 Narrative Exam Narrative: NAD, alert and oriented. Fluent speech. Lungs are clear, normal rate and effort. Heart is regular, no murmur gallop or rub. Abdomen is soft, non distended. Extremities are free of edema. Objective Labs 10/25/23 04:16 10/25/23 04:16 Labs: Laboratory Results - last 24 hr 10/25/23 04:16 WBC 5.5 RBC 2.93 L Hgb 9.6 L Hct 28.0 L MCV 95.7 MCH 32.7 MCHC 34.2 RDW 13.8 Plt Count 292 Sodium 134 L Potassium 3.6 Chloride 105 Carbon Dioxide 27 BUN 8 L Creatinine 0.58 L Estimated GFR > 60 BUN/Creatinine Ratio 13.8 Glucose 107 Calcium 8.6 Total Bilirubin 0.3 AST 36 ALT 18 Alkaline Phosphatase 124 Total Protein 5.7 L Albumin 2.7 L Globulin 3.0 Albumin/Globulin Ratio 0.9 L [facility] Medical History Cognitive deficits Chronic hyponatremia Left elbow fracture Broken neck Multiple falls Cervical spondylosis with myelopathy Marijuana dependence Osteoarthritis Memory loss Osteoarthrosis Epilepsy, unspecified, not intractable, without status epilepticus Alcohol dependence, uncomplicated Surgical History History of neck surgery History of back surgery H/O foot surgery H/O thumb surgery History of esophagogastroduodenoscopy (EGD) History of colonoscopy Family History Father Cancer Aneurysm Mother Cancer Social History marital status: unknown household members: none lives independently: Yes housing: other ([facility]) Smoking Status: Current every day smoker alcohol intake: current Assessment & Plan Assessment & Plan narrative: 1. Alcohol Withdrawal, present on admission and resolved with mild residual acute encephalopathy 2. NSVT, new and improved. 3. Severe alcohol use disorder, present on admission and active. 4. Epilepsy, present on admission and active. 5. Hyponatremia, present on admission and stable. 6. 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 7. HTN, present on admission and active. 8. Right arm Laceration /left elbow contusion, present on admission and active. 9. Hypokalemia/hypomagnesemia. 10. Supratherapeutic dilantin level from possible amiodarone-dilantin interaction. 11. Right wrist pain likely secondary to arthritis, present on admission and stable. PLAN: -encourage mobilization with therapy. -continue to follow course, continue Marinol, and encourage oral intake. -discuss with social work, regarding discharge planning. Likely predatory animal exterminator care, vs SNF. Time-Based Coding :: [TOTAL MINUTES] spent with patient and on the chart (including review of chart, obtaining history, exam, reviewing outside data, placing orders, documenting exam and treatment plan, and counseling patient) on [DATE].
[2023-10-25 20:24] VITALS: BP 131/78; PULSE 93; RESP 18; TEMP 36.5; O2SAT 97
[2023-10-26 08:00] VITALS: BP 138/81; PULSE 74; RESP 12; TEMP 36.3; O2SAT 98
[2023-10-26] MEDS: droNABinol 2.5 MG CAPSULE PO (08:49)
[2023-10-26] MEDS: ENOXAPARIN 40 MG/0.4 ML SYRINGE SUBCUT (08:50)
[2023-10-26] MEDS: TAMSULOSIN 0.4 MG CAPSULE PO (08:50)
--- NOTE | 2023-10-26 11:24 | PT.IPTN ---
Current Diagnoses Hypo-osmolality and hyponatremia (10/03/23) Alcohol use, unspecified with withdrawal, uncomplicated (10/03/23) Other abnormalities of gait and mobility (10/03/23) Other symptoms and signs involving cognitive functions and awareness (10/03/23) Physical Therapy Treatment Note M2 PT-IP Current Condition Start: 10/07/23 17:06 Freq: NEEDED Status: Active Protocol: Document 10/07/23 15:22 AB (Rec: 10/07/23 17:21 AB [id number]) Physical Therapy Current Condition Current Condition Evaluation Date 10/07/23 Treatment Diagnosis alcohol withdrawal; difficulty in walking Onset Date 10/03/23 M3 PT-IP Subjective Start: 10/07/23 17:06 Freq: NEEDED Status: Active Protocol: Document 10/26/23 11:07 MB (Rec: 10/26/23 11:24 MB [id number]) Subjective Physical Therapy Visit Type Type Treatment Note Visit Start Time 11:07 Visit Stop Time 11:17 Number of LINE INSTALLATION SUPERVISOR Visits 0 Physical Therapy Visit Comments Patient Comments Agreeable to PT Therapy Pain Assessment Pain When Pain Assessed At Rest Pain Present Pain Present Denied Pain M4 PT-IP Mobility and Gait Start: 10/07/23 17:06 Freq: NEEDED Status: Active Protocol: Document 10/26/23 11:07 MB (Rec: 10/26/23 11:24 MB [id number]) PT-Bed Mobility Assessment Rolling Type of Rolling Bilateral Level of Assist Standby Assistance Supine to Sit Supine to Sit Standby Assistance,Bedrails Sit to Supine Sit to Supine Standby Assistance,Bedrails Scooting Scooting to Edge of Bed Standby Assistance PT-Transfer Assessment Sit to and From Stand Sit to and from Stand Contact Guard Assistance,1 Person Assistance,Use of Upper Extremities Equipment Transfer Assistive Device Gait Belt,Front Wheeled Walker Orthotic/Prosthetic Devices or Brace: No Comments Mobility Comments Pt requires several attempts to stand up from chair. He moves quickly with bed mobility and he requires cues for hand placement for transfers chair<>RW and bed<> RW as he tends to reach for the walker Gait Assessment Gait Gait Assistance Required: Standby Assistance,1 Person Assist Distance (Feet) 100 Able to Maintain Weight Bearing Status Yes During Gait Assistive Devices Assistive Device Gait Belt,Front Wheeled Walker Orthotic/Prosthetic Devices or Brace: No Gait Deviations General Gait Pattern Flexed Trunk Factors Limiting Gait Function Factors Limiting Gait Function Poor Balance,Poor Safety Awareness M5 PT-IP Objective Assessments Start: 10/07/23 17:06 Freq: NEEDED Status: Active Protocol: Document 10/23/23 10:53 MB (Rec: 10/23/23 11:19 MB [id number]) Orientation Orientation/Cognition Comments A&O to self and hospital and not to month, date, day of week or year. Pt knows that he is in the hospital for drinking issues Gross Range of Motion Upper Extremity ROM Assessment Bilaterally Impaired Impairments Arthritic changes right hand and pain and left shoulder with limited use Lower Extremity ROM Assessment Bilaterally Impaired Impairments B hamstring and PF tension/ flexion tone increased Strength Lower Extremity Strength Assessment Bilaterally Impaired Comments Strength Comments Pt does not tolerate MMT LEs and strength is no greater than 2+/5 B knee extension and PF tone for B ankles and no foot clearance with attempted standing and stepping, hips weak with posterior lean and reduced hip extension in standing Coordination Assessment Gross Coordination Gross Coordination Impaired Muscle Tone Muscle Tone WNL No M6 PT-IP Treatment Start: 10/07/23 17:06 Freq: NEEDED Status: Active Protocol: Document 10/26/23 11:07 MB (Rec: 10/26/23 11:24 MB [id number]) Physical Therapy Treatment Education Education Provided Safety Other Treatments Other Treatment Performed Hand placement for safe transfers, ed x4 and pt does not perform correctly x4 M7 PT-IP Assessment and Plan Start: 10/07/23 17:06 Freq: NEEDED Status: Active Protocol: Document 10/26/23 11:07 MB (Rec: 10/26/23 11:24 [id number]) PT Summary Assessment and Plan Potential Rehabilitation Potential Good Status of Condition at Evaluation Evolving Summary Impairments Pain,ROM,Strength,Balance, Coordination,Cognition,Bed Mobility,Transfers,Gait, Activity Tolerance Progress Towards Goals Progressing Toward Goals Assessment Summary Pt is progressing towards mobility goals. He continually does not perform correct hand placement for transfers and he struggles to stand up from chair. Con't PT to maxmize I. Goals Bed Mobility Goal Independent Transfer Goal Independent,Front Wheeled Walker Gait Goal Independent,Front Wheel Walker Gait Distance 150 Days to Meet Goals 10 Frequency of Treatment Frequency Of Treatment Once a Day Treatment Plan Physical Therapy Treatment Plan Bed Mobility Training,Transfer Training,Gait Training, Therapeutic Exercise,Balance Retraining,Discharge Planning, Hot or Cold Pack,Neuromuscular Re-ed,Coordination Retraining ,Manual Therapy Precautions Other Precautions Falls Recommendations To Nursing Amount of Assist Needed 1 Person Assist Discharge Recommendations Other Discharge Recommendations SNF vs SNF Transportation Needs at Discharge Private Vehicle
--- NOTE | 2023-10-26 11:44 | PM.PN.1 ---
Subjective Subjective Interval history: He was admitted initially with alcohol withdrawal and had a deep and persistent. Of metabolic encephalopathy. He initially had atrial fibrillation with RVR and was given amiodarone for approximately 2 days. There is a question of interaction with this and his Dilantin that may have caused him more persistent encephalopathy that is now clearing. He has been doing well since October 21, more alert and interactive. He was been participating in therapy and eating. S: He is doing well, ambulating to the bathroom. Ambulated 150 ft with therapy yesterday. Tolerating a diet. Exam Vital Signs (past 8 hours): - 10/26/23 07:00 10/26/23 08:00 Temperature 97.4 F L Pulse Rate 74 Respiratory Rate 12 Blood Pressure 138/81 Pulse Oximetry 98 Oxygen Delivery Method Room Air Oxygen Flow Rate 0 Oxygen Delivery Method Room Air Oxygen Flow Rate 0 Narrative Exam Narrative: NAD, alert and oriented. Fluent speech. Lungs are clear, normal rate and effort. Heart is regular, no murmur gallop or rub. Abdomen is soft, non distended. Extremities are free of edema. Objective Labs 10/25/23 04:16 10/25/23 04:16 [facility] Medical History Cognitive deficits Chronic hyponatremia Left elbow fracture Broken neck Multiple falls Cervical spondylosis with myelopathy Marijuana dependence Osteoarthritis Memory loss Osteoarthrosis Epilepsy, unspecified, not intractable, without status epilepticus Alcohol dependence, uncomplicated Surgical History History of neck surgery History of back surgery H/O foot surgery H/O thumb surgery History of esophagogastroduodenoscopy (EGD) History of colonoscopy Family History Father Cancer Aneurysm Mother Cancer Social History marital status: unknown household members: none lives independently: Yes housing: other ([facility]) Smoking Status: Current every day smoker alcohol intake: current Assessment & Plan Assessment & Plan narrative: 1. Alcohol Withdrawal, present on admission and resolved with mild residual acute encephalopathy 2. NSVT, new and improved. 3. Severe alcohol use disorder, present on admission and active. 4. Epilepsy, present on admission and active. 5. Hyponatremia, present on admission and stable. 6. 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 7. HTN, present on admission and active. 8. Right arm Laceration /left elbow contusion, present on admission and active. 9. Hypokalemia/hypomagnesemia. 10. Supratherapeutic dilantin level from possible amiodarone-dilantin interaction. 11. Right wrist pain likely secondary to arthritis, present on admission and stable. PLAN: -encourage mobilization with therapy. -continue to follow course, continue Marinol, and encourage oral intake. -discuss with social work, regarding discharge planning. Likely penitentiary care Time-Based Coding :: [TOTAL MINUTES] spent with patient and on the chart (including review of chart, obtaining history, exam, reviewing outside data, placing orders, documenting exam and treatment plan, and counseling patient) on [DATE].
--- NOTE | 2023-10-26 14:52 | CM.DPNOTE ---
DCP Note SAFETY REPRESENTATIVE reviewed EMR. Pt mobilizing has improved, pt eating, and overall improving daily. Per Duncan Carrasquillo, will plan for nurse Sasha to assess pt Friday. Per RN, pt now claiming he wants to do SNF before returning home. CM team unable to meet with pt at this time due to triaging needs. Will f/u with pt/POAs tomorrow. RAFAEL Zelaya
[2023-10-26 20:00] VITALS: BP 119/79; PULSE 91; RESP 16; TEMP 37.1; O2SAT 97
[2023-10-27 08:45] VITALS: BP 129/83; PULSE 87; RESP 16; TEMP 36.6; O2SAT 98
[2023-10-27] MEDS: TAMSULOSIN 0.4 MG CAPSULE PO (08:47)
[2023-10-27] MEDS: droNABinol 2.5 MG CAPSULE PO (08:47)
--- NOTE | 2023-10-27 09:22 | OT.IP.TRT ---
Current Diagnoses Hypo-osmolality and hyponatremia (10/03/23) Alcohol use, unspecified with withdrawal, uncomplicated (10/03/23) Other abnormalities of gait and mobility (10/03/23) Other symptoms and signs involving cognitive functions and awareness (10/03/23) Occupational Therapy Treatment Note M2 OT-IP Current Condition Start: 10/08/23 12:09 Freq: Status: Active Protocol: Document 10/23/23 13:30 [facility] (Rec: 10/23/23 13:48 [facility] [id number]) Occupational Therapy Current Condition Current Condition Evaluation Date 10/23/23 Treatment Diagnosis ETOH withdrawal and weakness Diagnosis Onset Date 10/03/23 M3 OT- IP Subjective and Pain Start: 10/08/23 12:09 Freq: Status: Active Protocol: Document 10/27/23 10:39 CGR (Rec: 10/27/23 10:48 CGR [id number]) OT- Subjective Occupational Therapy Visit Type Type Treatment Note Visit Start Time 09:07 Visit Stop Time 09:22 M4 OT- IP ADL's Start: 10/08/23 12:09 Freq: Status: Active Protocol: Document 10/27/23 10:39 CGR (Rec: 10/27/23 10:48 CGR [id number]) OT [id number] General Evaluation Self-Feeding Ability Independent Comments OT Self-Feeding Comments Pt eating breakfast when OT entered. OT ADL-Grooming Comments OT Grooming Comments not performed OT ADL-Oral Care Comments Oral Care Comments not performed OT ADL-Dressing Comments OT Dressing Comments not performed OT ADL-Toileting Comments OT Toileting Comments pt declined need OT ADL-Bathing Comments OT Bathing Comments not performed M5 OT- IP IADL's Start: 10/08/23 12:09 Freq: Status: Active Protocol: Document 10/23/23 13:30 [facility] (Rec: 10/23/23 13:48 [facility] [id number]) OT-Instrumental Activities of Daily Living Deficits IADL Deficits Identified Deficits Home Safety Awareness Ability to Problem Solve Emergency Able to Problem Solve Situations Home Safety Comments Pt able to answr home safety situations with 90% accuracy. Medication Management Medication Management Comments Pt will benefit form assist. Money Management Money Management Comments Pt will benefit from assist. Meal Preparation Meal Preparation Comments Pt will benefit from assist. Cleaning Maid Cleaning Maid Comments Pt will benefit from assist. Driving Driving Comments Pt states does not drive. M6 OT- IP Functional Cognition Start: 10/08/23 12:09 Freq: Status: Active Protocol: Document 10/27/23 10:39 CGR (Rec: 10/27/23 10:48 CGR [id number]) Cognitive Factors Limiting Selfcare Function Cognitive Ability Level of Alertness Alert Patient Orientation Name,Year,Place,Situation Attention Span Ability Capable of Focused Attention, Capable of Sustained Attention Cognitive Tests SLUMS Pt participated in SLUMS assessment with a score of 15/ 30. Pt did not know the day of the week but is otherwise oriented. Pt was able to perform simple addition and subtraction, named 11 animals in 1 minute, rebembered 2/5 objects, was unable to perform numbers backwards, scored no points for the clock, was able to identify objects, and answered 2/4 listening comprehension questions. Pt's SLUMS form was copied and left in his paper chart for later scanning into the chart. M7 OT- IP Mobility and Balance Start: 10/08/23 12:09 Freq: Status: Active Protocol: Document 10/24/23 14:41 [facility] (Rec: 10/24/23 14:50 [facility] [id number]) OT- Bed Mobility Assessment Supine to Sit Supine to Sit Assist Minimal Assistance OT-Transfer Assessment Sit to and From Stand Sit to and from Stand Moderate Assistance Transfers Transfer Ability Moderate Assistance Technique Transfer Destination Bed,Toilet Transfer Technique Stand Step Pivot Devices Transfer Assistive Devices Gait Belt,Front Wheeled Walker Comments Mobility Comments Pt heavy use of grabbar to satnd to the FWW andn assist. Pt better balance today on his feet. MODA x 1 with FWW to steady the FWW and to asisst with his balance. Initially, pt needing FARHANA and then as tiringn needing MODA X 1 with FWW. OT- Balance Assessment Sitting Balance and Reactions Static Sitting Balance Ability Good Dynamic Sitting Balance Ability Good Standing Balance and Reactions Static Standing Balance Ability Fair Dynamic Standing Balance Ability Poor M8 OT- IP Objective Assessments Start: 10/08/23 12:09 Freq: Status: Active Protocol: Document 10/23/23 13:30 CCC (Rec: 10/23/23 13:48 [facility] [id number]) OT Gross Range of Motion Upper Extremity Range of Motion ROM Impairments R UE grossly WFL. L shoulder limited to ~45 degrees of scaption. L elbow/forearm/ wrist/hand WFL OT Strength Comments Strength Comments Arthritic changes in hand R>L OT- Coordination Assessment Upper Extremity Finger to Nose Test Within Functional Limits M9 OT- IP Assessment and Plan Start: 10/08/23 12:09 Freq: Status: Active Protocol: Document 10/24/23 14:41 [facility] (Rec: 10/24/23 14:50 [facility] [id number]) OT Summary Assessment and Plan Potential Rehabilitation Potential Fair Analytic Complexity at Evaluation Moderate Summary OT Impairments Pain,Range of Motion,Strength, Balance,Coordination, Functional Cognition, Functional Mobility,Grooming, Dressing,Toileting,Bathing, Toilet Transfers,Shower Transfers,Activity Tolerance Progress Towards Goals Progressing Toward Goals Assessment Summary Pt moving better today andn able to walk into the bathroom with assist for balance and completeness of hygiene needs. Pt would still benefit from SNF initially versus MEG/[facility] to maximize his mobility needs . Goals Self-Feeding Goal Independent Grooming Goal Standby Assistance Dressing Goal Standby Assistance Toileting Goal Contact Guard Assistance Bathing Goal Minimal Assistance Toilet Transfer Goal Standby Assistance Shower Transfer Goal Contact Guard Assistance Days to Meet Goals 25 Frequency of Treatment Other frequency 5x/week Treatment Plan OT Treatment Plan ADL Training,Functional Cognition Training,Functional Mobility,IADL Training, Therapeutic Exercises,Patient/ Family Education,Discharge Planning Discharge Recommendations OT Discharge Recommendations SNF Rehab Transportation Needs at Discharge Wheelchair/Cabulance
--- NOTE | 2023-10-27 12:10 | DIET.CONS ---
Dietary Consultation Note Admission Date: 10/03/2023 22:15 Assessment: Pt w/ improved po intakes and mobilizing with PT. Adjusted ONS to sending Ensure Enlive w/ desserts ordered at lunch and coordinating double protein serving at dinner. Pt dx with chronic malnutrition in April w/ nutrition focused physical exam showing moderate to severe muscle wasting. Ht: 177.8 cm Wt: 63.503 kg BMI: 20.0 UBW: 65.364 kg on 09/11/23, 69.636 kg on 03/13/23 Last BM: 10/27/23 (10/27/23 10:22) MNA: Vaughn Score: 22 Diet: 10/04/23 Breakfast General (Regular) Diet Diet Modifications: Nutrition Percent Meal Consumed 100% 10/26/23 18:00 Percent Meal Consumed 100% 10/26/23 13:00 Percent Meal Consumed 100% 10/25/23 18:00 Percent Meal Consumed 100% 10/25/23 13:00 Labs: RBC 2.93 X10^6/uL (4.5-5.9) L 10/25/23 04:16 Hgb 9.6 g/dL (13.5-17.5) L 10/25/23 04:16 Hct 28.0 % (41-53) L 10/25/23 04:16 Creatinine 0.58 mg/dL (0.66-1.25) L 10/25/23 04:16 NT-Pro-B Natriuret Pep 489 pg/mL (<125) H 10/03/23 17:00 Nutrition Diagnosis: Severe chronic Protein Calorie Malnutrition r/t excessive ETOH intake displacing nutrient dense foods as evidenced by history of alcohol use disorder, reported drinking 9 beers daily, <25% estimated energy needs for 3 weeks during admission, history of refusal to eat during hospital admissions, BMI 20 (underweight for age). Interventions: 1. Pt eating again, continue ONS for meals insufficient protein/energy (lunch) and double protein serving at dinner to meet needs 2. Updated weight as appropriate EER: [id number] kcals (30 kcals/kg per BMI) 85-95 g protein (1.3-1.5 g/kg per PCM) Monitoring/Evaluations: po intakes Electronically Signed by: Yareli Pinto 10/27/23 12:10 [address] Diet[address] [place] [address]
--- NOTE | 2023-10-27 14:28 | PT.IPTN ---
Current Diagnoses Hypo-osmolality and hyponatremia (10/03/23) Alcohol use, unspecified with withdrawal, uncomplicated (10/03/23) Other abnormalities of gait and mobility (10/03/23) Other symptoms and signs involving cognitive functions and awareness (10/03/23) Physical Therapy Treatment Note M2 PT-IP Current Condition Start: 10/07/23 17:06 Freq: NEEDED Status: Active Protocol: Document 10/07/23 15:22 AB (Rec: 10/07/23 17:21 AB [id number]) Physical Therapy Current Condition Current Condition Evaluation Date 10/07/23 Treatment Diagnosis alcohol withdrawal; difficulty in walking Onset Date 10/03/23 M3 PT-IP Subjective Start: 10/07/23 17:06 Freq: NEEDED Status: Active Protocol: Document 10/27/23 14:01 MB (Rec: 10/27/23 14:28 MB [id number]) Subjective Physical Therapy Visit Type Type Treatment Note Number of LOAN SERVICE OFFICER Visits 0 Physical Therapy Visit Comments Patient Comments Agreeable to PT Therapy Pain Assessment Pain When Pain Assessed At Rest Pain Present Pain Present Denied Pain M4 PT-IP Mobility and Gait Start: 10/07/23 17:06 Freq: NEEDED Status: Active Protocol: Document 10/27/23 14:01 MB (Rec: 10/27/23 14:28 MB [id number]) PT-Transfer Assessment Sit to and From Stand Sit to and from Stand Standby Assistance,Minimal Assistance,1 Person Assistance ,Use of Upper Extremities Equipment Transfer Assistive Device Gait Belt,Front Wheeled Walker Orthotic/Prosthetic Devices or Brace: No Comments Mobility Comments Two attempts and CGA to stand up from chair to RW today and min A and several attempts to stand up from commode with heavy right hand support on rail. Set-up for hand hygiene with washcloth after toileting . Gait Assessment Gait Gait Assistance Required: Standby Assistance,1 Person Assist Distance (Feet) 150 Able to Maintain Weight Bearing Status Yes During Gait Assistive Devices Assistive Device Gait Belt,Front Wheeled Walker Orthotic/Prosthetic Devices or Brace: No Gait Deviations General Gait Pattern Flexed Trunk Factors Limiting Gait Function Factors Limiting Gait Function Poor Balance,Poor Safety Awareness M5 PT-IP Objective Assessments Start: 10/07/23 17:06 Freq: NEEDED Status: Active Protocol: Document 10/23/23 10:53 MB (Rec: 10/23/23 11:19 [id number]) Orientation Orientation/Cognition Comments A&O to self and hospital and not to month, date, day of week or year. Pt knows that he is in the hospital for drinking issues Gross Range of Motion Upper Extremity ROM Assessment Bilaterally Impaired Impairments Arthritic changes right hand and pain and left shoulder with limited use Lower Extremity ROM Assessment Bilaterally Impaired Impairments B hamstring and PF tension/ flexion tone increased Strength Lower Extremity Strength Assessment Bilaterally Impaired Comments Strength Comments Pt does not tolerate MMT LEs and strength is no greater than 2+/5 B knee extension and PF tone for B ankles and no foot clearance with attempted standing and stepping, hips weak with posterior lean and reduced hip extension in standing Coordination Assessment Gross Coordination Gross Coordination Impaired Muscle Tone Muscle Tone WNL No M6 PT-IP Treatment Start: 10/07/23 17:06 Freq: NEEDED Status: Active Protocol: Document 10/27/23 14:01 MB (Rec: 10/27/23 14:28 [id number]) Physical Therapy Treatment Education Education Provided Safety M7 PT-IP Assessment and Plan Start: 10/07/23 17:06 Freq: NEEDED Status: Active Protocol: Document 10/27/23 14:01 MB (Rec: 10/27/23 14:28 [id number]) PT Summary Assessment and Plan Potential Rehabilitation Potential Good Status of Condition at Evaluation Evolving Summary Impairments Pain,ROM,Strength,Balance, Coordination,Cognition,Bed Mobility,Transfers,Gait, Activity Tolerance Progress Towards Goals Progressing Toward Goals Assessment Summary Pt does better with standing up from chair today and requires min A to stand up from commode with heavy RUE support. Goals Bed Mobility Goal Independent Transfer Goal Independent,Front Wheeled Walker Gait Goal Independent,Front Wheel Walker Gait Distance 150 Days to Meet Goals 10 Frequency of Treatment Frequency Of Treatment Once a Day Treatment Plan Physical Therapy Treatment Plan Bed Mobility Training,Transfer Training,Gait Training, Therapeutic Exercise,Balance Retraining,Discharge Planning, Hot or Cold Pack,Neuromuscular Re-ed,Coordination Retraining ,Manual Therapy Precautions Other Precautions Falls Recommendations To Nursing Amount of Assist Needed 1 Person Assist Discharge Recommendations Other Discharge Recommendations SNF vs [facility] Transportation Needs at Discharge Private Vehicle
--- NOTE | 2023-10-27 14:36 | P.PN_ITS ---
Subjective Subjective Interval history: alert and in good spirits. no complaints Exam Vital Signs (past 8 hours): - 10/27/23 08:00 10/27/23 08:45 Temperature 97.8 F Pulse Rate 87 Respiratory Rate 16 Blood Pressure 129/83 Pulse Oximetry 98 Oxygen Delivery Method Room Air Oxygen Delivery Method Room Air Oxygen Flow Rate 0 Narrative Exam Narrative: general: well appearing lung: normal effort neuro: alert and oriented, no focal deficits psych: pleasant Objective Labs 10/25/23 04:16 10/25/23 04:16 [facility] Medical History Cognitive deficits Chronic hyponatremia Left elbow fracture Broken neck Multiple falls Cervical spondylosis with myelopathy Marijuana dependence Osteoarthritis Memory loss Osteoarthrosis Epilepsy, unspecified, not intractable, without status epilepticus Alcohol dependence, uncomplicated Surgical History History of neck surgery History of back surgery H/O foot surgery H/O thumb surgery History of esophagogastroduodenoscopy (EGD) History of colonoscopy Family History Father Cancer Aneurysm Mother Cancer Social History marital status: unknown household members: none lives independently: Yes housing: other ([facility]) Smoking Status: Current every day smoker alcohol intake: current Assessment & Plan Assessment & Plan narrative: 1. Alcohol Withdrawal, present on admission and resolved with mild residual acute encephalopathy 2. NSVT, new and improved. 3. Severe alcohol use disorder, present on admission and active. 4. Epilepsy, present on admission and active. 5. Hyponatremia, present on admission and stable. 6. 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 7. HTN, present on admission and active. 8. Right arm Laceration /left elbow contusion, present on admission and active. 9. Hypokalemia/hypomagnesemia. 10. Supratherapeutic dilantin level from possible amiodarone-dilantin interaction. 11. Right wrist pain likely secondary to arthritis, present on admission and stable. PLAN: -encourage mobilization with therapy. -continue to follow course, continue Marinol, and encourage oral intake. -discuss with social work, regarding discharge planning. Likely retirement care Time-Based Coding :: [TOTAL MINUTES] spent with patient and on the chart (including review of chart, obtaining history, exam, reviewing outside data, placing orders, documenting exam and treatment plan, and counseling patient) on [DATE].
--- NOTE | 2023-10-27 15:29 | CM.DPNOTE ---
DCP Note BIOLOGICS SPECIALIST reviewed EMR. Pt mobilizing well with PT/OT. Per PT, standby assist one PA. Per Yolanda at [facility], another day or two before we have rate. BIOLOGICS SPECIALIST answered questions to best of ability. BIOLOGICS SPECIALIST emailed Yolanda copy of DPOA paperwork. Per Duncan at [place], assessment with Sasha went well. Can take him later this week pending rate availability. BIOLOGICS SPECIALIST had a lengthy chat with pt in room. Pleasant and chatty. Forgetful, this BIOLOGICS SPECIALIST had to review DCP/intermodal dispatcher plan multiple times, asking name of [place] multiple times. Repeated consistently that he was okay with/preference is [place], understands he will not be returning to [facility], and is okay with this. Appreciative of this team helping to get him to his new home. Pt was saying all he wanted from his apartment was his flags and the remains of his dog. BIOLOGICS SPECIALIST spoke with Mo on the phone with the above updates. Mo remains in agreement with plan. BIOLOGICS SPECIALIST started an email thread with Yolanda/Duncan/DEON team to best coordinate DCP efforts. P: CM team to follow closely for finalized [facility] assessment/will coordinate with POAs to assist with move in. RAFAEL Zelaya
[2023-10-27 19:00] VITALS: BP 118/68; PULSE 89; RESP 18; TEMP 37.3; O2SAT 97
[2023-10-28] MEDS: droNABinol 2.5 MG CAPSULE PO (08:42)
[2023-10-28] MEDS: ENOXAPARIN 40 MG/0.4 ML SYRINGE SUBCUT (08:42)
[2023-10-28] MEDS: TAMSULOSIN 0.4 MG CAPSULE PO (08:42)
[2023-10-28 09:00] VITALS: BP 125/76; PULSE 94; RESP 16; TEMP 36.3; O2SAT 97
--- NOTE | 2023-10-28 12:35 | PT.IPTN ---
Current Diagnoses Hypo-osmolality and hyponatremia (10/03/23) Alcohol use, unspecified with withdrawal, uncomplicated (10/03/23) Other abnormalities of gait and mobility (10/03/23) Other symptoms and signs involving cognitive functions and awareness (10/03/23) Physical Therapy Treatment Note M2 PT-IP Current Condition Start: 10/07/23 17:06 Freq: NEEDED Status: Active Protocol: Document 10/07/23 15:22 AB (Rec: 10/07/23 17:21 AB [id number]) Physical Therapy Current Condition Current Condition Evaluation Date 10/07/23 Treatment Diagnosis alcohol withdrawal; difficulty in walking Onset Date 10/03/23 M3 PT-IP Subjective Start: 10/07/23 17:06 Freq: NEEDED Status: Active Protocol: Document 10/28/23 14:42 TS (Rec: 10/28/23 14:49 TS [id number]) Subjective Physical Therapy Visit Type Type Treatment Note Visit Start Time 12:35 Visit Stop Time 12:51 Number of SURGICAL RN Visits 1 Physical Therapy Visit Comments Patient Comments Pt reports feeling good, he is agreeable to PT. Therapy Pain Assessment Pain When Pain Assessed At Rest Pain Present Pain Present Denied Pain M4 PT-IP Mobility and Gait Start: 10/07/23 17:06 Freq: NEEDED Status: Active Protocol: Document 10/28/23 14:42 TS (Rec: 10/28/23 14:49 TS [id number]) PT-Transfer Assessment Sit to and From Stand Sit to and from Stand Standby Assistance Equipment Transfer Assistive Device Gait Belt,Front Wheeled Walker Orthotic/Prosthetic Devices or Brace: No Comments Mobility Comments STS with FWW SBA, pt cued for pushing from arms of the chair . He ambulated ~200'SBA with FWW, pt is unsteady at times. He performed steps x12 with use of B handrails, had no buckling or LOB. Pt ambulated back to the room, was left in the restroom, nursing notified . Gait Assessment Gait Gait Assistance Required: Standby Assistance,1 Person Assist Distance (Feet) 200 Able to Maintain Weight Bearing Status Yes During Gait Assistive Devices Assistive Device Gait Belt,Front Wheeled Walker Orthotic/Prosthetic Devices or Brace: No Gait Deviations General Gait Pattern Flexed Trunk Factors Limiting Gait Function Factors Limiting Gait Function Poor Balance,Poor Safety Awareness Stair Climbing Assessment Evaluation Level of Assist On Stairs Standby Assistance Devices Stair Climbing Assistive Devices Left Railing,Right Railing Technique/Endurance Stair Climbing Direction Ascend and Descend Stair Climbing Technique Step to Step Number of Steps Climbed 12 PT-Balance Assessment Sitting Balance and Reactions Static Sitting Balance Ability Good Dynamic Sitting Balance Ability Good Standing Balance and Reactions Static Standing Balance Ability Good Dynamic Standing Balance Ability Fair Device Used FWW M5 PT-IP Objective Assessments Start: 10/07/23 17:06 Freq: NEEDED Status: Active Protocol: Document 10/23/23 10:53 MB (Rec: 10/23/23 11:19 MB [id number]) Orientation Orientation/Cognition Comments A&O to self and hospital and not to month, date, day of week or year. Pt knows that he is in the hospital for drinking issues Gross Range of Motion Upper Extremity ROM Assessment Bilaterally Impaired Impairments Arthritic changes right hand and pain and left shoulder with limited use Lower Extremity ROM Assessment Bilaterally Impaired Impairments B hamstring and PF tension/ flexion tone increased Strength Lower Extremity Strength Assessment Bilaterally Impaired Comments Strength Comments Pt does not tolerate MMT LEs and strength is no greater than 2+/5 B knee extension and PF tone for B ankles and no foot clearance with attempted standing and stepping, hips weak with posterior lean and reduced hip extension in standing Coordination Assessment Gross Coordination Gross Coordination Impaired Muscle Tone Muscle Tone WNL No M6 PT-IP Treatment Start: 10/07/23 17:06 Freq: NEEDED Status: Active Protocol: Document 10/28/23 14:42 TS (Rec: 10/28/23 14:49 TS [id number]) Physical Therapy Treatment Education Education Provided Safety M7 PT-IP Assessment and Plan Start: 10/07/23 17:06 Freq: NEEDED Status: Active Protocol: Document 10/28/23 14:42 TS (Rec: 10/28/23 14:49 TS [id number]) PT Summary Assessment and Plan Potential Rehabilitation Potential Good Summary Impairments Pain,ROM,Strength,Balance, Coordination,Cognition,Bed Mobility,Transfers,Gait, Activity Tolerance Progress Towards Goals Progressing Toward Goals Assessment Summary Gwendolyn continues to make progress with his mobility. He progressed his gait to ~200' SBA with FWW. He performed stairs x12 with use of B handrails. He is slightly unsteady with gait and performing stairs. Goals Bed Mobility Goal Independent Transfer Goal Independent,Front Wheeled Walker Gait Goal Independent,Front Wheel Walker Gait Distance 150 Days to Meet Goals 10 Frequency of Treatment Frequency Of Treatment Once a Day Treatment Plan Physical Therapy Treatment Plan Bed Mobility Training,Transfer Training,Gait Training, Therapeutic Exercise,Balance Retraining,Discharge Planning, Hot or Cold Pack,Neuromuscular Re-ed,Coordination Retraining ,Manual Therapy Precautions Other Precautions Falls Recommendations To Nursing Amount of Assist Needed 1 Person Assist Discharge Recommendations Other Discharge Recommendations SNF vs [facility] Transportation Needs at Discharge Private Vehicle
--- NOTE | 2023-10-28 13:04 | OT.IPNOTE ---
Pt now moving better and appears to be at his baseline for needs. Pt awaiting to go to [facility].
--- NOTE | 2023-10-28 13:07 | OT.IPNOTE ---
Pt waiting to go to [facility]. Pt at his baseline for OT needs and therefore discharge from OT services.
--- NOTE | 2023-10-28 18:03 | PM.PN.1 ---
Subjective Subjective Interval history: talkative and happy, looking forward to the debate tonight, he would like to have some non-alcoholic beer which I said was ok for him to have Exam Vital Signs (past 8 hours): Oxygen Delivery Method Room Air Oxygen Flow Rate 0 Narrative Exam Narrative: gen: well appearing lung: normal effort neuro: no focal deficits psych: pleasant and talkative Objective Labs 10/25/23 04:16 10/25/23 04:16 COUNTS INCLUDE 234 BEDS AT THE [facility] Medical History Cognitive deficits Chronic hyponatremia Left elbow fracture Broken neck Multiple falls Cervical spondylosis with myelopathy Marijuana dependence Osteoarthritis Memory loss Osteoarthrosis Epilepsy, unspecified, not intractable, without status epilepticus Alcohol dependence, uncomplicated Surgical History History of neck surgery History of back surgery H/O foot surgery H/O thumb surgery History of esophagogastroduodenoscopy (EGD) History of colonoscopy Family History Father Cancer Aneurysm Mother Cancer Social History marital status: unknown household members: none lives independently: Yes housing: other ([facility]) Smoking Status: Current every day smoker alcohol intake: current Assessment & Plan Assessment & Plan narrative: 1. Alcohol Withdrawal, present on admission and resolved with mild residual acute encephalopathy 2. NSVT, new and improved. 3. Severe alcohol use disorder, present on admission and active. 4. Epilepsy, present on admission and active. 5. Hyponatremia, present on admission and stable. 6. 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 7. HTN, present on admission and active. 8. Right arm Laceration /left elbow contusion, present on admission and active. 9. Hypokalemia/hypomagnesemia. 10. Supratherapeutic dilantin level from possible amiodarone-dilantin interaction. 11. Right wrist pain likely secondary to arthritis, present on admission and stable. PLAN: -encourage mobilization with therapy. -continue to follow course, continue Marinol, and encourage oral intake. -waiting on placement Time-Based Coding :: [TOTAL MINUTES] spent with patient and on the chart (including review of chart, obtaining history, exam, reviewing outside data, placing orders, documenting exam and treatment plan, and counseling patient) on [DATE].
[2023-10-29] MEDS: ENOXAPARIN 40 MG/0.4 ML SYRINGE SUBCUT (08:36)
[2023-10-29] MEDS: droNABinol 2.5 MG CAPSULE PO (08:36)
[2023-10-29] MEDS: TAMSULOSIN 0.4 MG CAPSULE PO (08:36)
[2023-10-29 08:38] VITALS: BP 141/84; RESP 19; TEMP 37.1; O2SAT 98
--- NOTE | 2023-10-29 10:57 | PM.PN.1 ---
Subjective Subjective Interval history: happy and engaged Exam Vital Signs (past 8 hours): - 10/29/23 07:00 10/29/23 08:38 Temperature 98.7 F Respiratory Rate 19 Blood Pressure 141/84 H Pulse Oximetry 98 Oxygen Delivery Method Room Air Oxygen Flow Rate 0 Oxygen Delivery Method Room Air Oxygen Flow Rate 0 Narrative Exam Narrative: gen: well appearing lung: normal effort neuro: no focal deficits psych: pleasant and talkative Objective Labs 10/25/23 04:16 10/25/23 04:16 [facility] Medical History Cognitive deficits Chronic hyponatremia Left elbow fracture Broken neck Multiple falls Cervical spondylosis with myelopathy Marijuana dependence Osteoarthritis Memory loss Osteoarthrosis Epilepsy, unspecified, not intractable, without status epilepticus Alcohol dependence, uncomplicated Surgical History History of neck surgery History of back surgery H/O foot surgery H/O thumb surgery History of esophagogastroduodenoscopy (EGD) History of colonoscopy Family History Father Cancer Aneurysm Mother Cancer Social History marital status: unknown household members: none lives independently: Yes housing: other ([facility]) Smoking Status: Current every day smoker alcohol intake: current Assessment & Plan Assessment & Plan narrative: 1. Alcohol Withdrawal, present on admission and resolved with mild residual acute encephalopathy 2. NSVT, new and improved. 3. Severe alcohol use disorder, present on admission and active. 4. Epilepsy, present on admission and active. 5. Hyponatremia, present on admission and stable. 6. 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 7. HTN, present on admission and active. 8. Right arm Laceration /left elbow contusion, present on admission and active. 9. Hypokalemia/hypomagnesemia. 10. Supratherapeutic dilantin level from possible amiodarone-dilantin interaction. 11. Right wrist pain likely secondary to arthritis, present on admission and stable. PLAN: -encourage mobilization with therapy. -continue to follow course, continue Marinol, and encourage oral intake. -waiting on placement Time-Based Coding :: [TOTAL MINUTES] spent with patient and on the chart (including review of chart, obtaining history, exam, reviewing outside data, placing orders, documenting exam and treatment plan, and counseling patient) on [DATE].
--- NOTE | 2023-10-29 13:04 | PT.IPTN ---
Current Diagnoses Hypo-osmolality and hyponatremia (10/03/23) Alcohol use, unspecified with withdrawal, uncomplicated (10/03/23) Other abnormalities of gait and mobility (10/03/23) Other symptoms and signs involving cognitive functions and awareness (10/03/23) Physical Therapy Treatment Note M2 PT-IP Current Condition Start: 10/07/23 17:06 Freq: NEEDED Status: Active Protocol: Document 10/07/23 15:22 AB (Rec: 10/07/23 17:21 AB [id number]) Physical Therapy Current Condition Current Condition Evaluation Date 10/07/23 Treatment Diagnosis alcohol withdrawal; difficulty in walking Onset Date 10/03/23 M3 PT-IP Subjective Start: 10/07/23 17:06 Freq: NEEDED Status: Active Protocol: Document 10/29/23 13:30 TS (Rec: 10/29/23 13:37 TS [id number]) Subjective Physical Therapy Visit Type Type Treatment Note Visit Start Time 13:04 Visit Stop Time 13:28 Number of PLANETARIUM TECHNICIAN Visits 2 Physical Therapy Visit Comments Patient Comments Pt found resting in bed, is agreeable to PT. M4 PT-IP Mobility and Gait Start: 10/07/23 17:06 Freq: NEEDED Status: Active Protocol: Document 10/29/23 13:30 TS (Rec: 10/29/23 13:37 TS [id number]) PT-Transfer Assessment Sit to and From Stand Sit to and from Stand Minimal Assistance,1 Person Assistance Equipment Transfer Assistive Device Gait Belt,Front Wheeled Walker Orthotic/Prosthetic Devices or Brace: No Comments Mobility Comments STS with FWW Edvin, pt uses momentum to stand from chair. He ambulated ~400'SBA with FWW . Pt was left back in room, all needs met. Gait Assessment Gait Gait Assistance Required: Standby Assistance,1 Person Assist Distance (Feet) 400 Able to Maintain Weight Bearing Status Yes During Gait Assistive Devices Assistive Device Gait Belt,Front Wheeled Walker Gait Deviations General Gait Pattern Flexed Trunk Factors Limiting Gait Function Factors Limiting Gait Function Poor Balance,Poor Safety Awareness PT-Balance Assessment Sitting Balance and Reactions Static Sitting Balance Ability Good Dynamic Sitting Balance Ability Good Standing Balance and Reactions Static Standing Balance Ability Good Dynamic Standing Balance Ability Fair Device Used FWW M5 PT-IP Objective Assessments Start: 10/07/23 17:06 Freq: NEEDED Status: Active Protocol: Document 10/23/23 10:53 MB (Rec: 10/23/23 11:19 MB [id number]) Orientation Orientation/Cognition Comments A&O to self and hospital and not to month, date, day of week or year. Pt knows that he is in the hospital for drinking issues Gross Range of Motion Upper Extremity ROM Assessment Bilaterally Impaired Impairments Arthritic changes right hand and pain and left shoulder with limited use Lower Extremity ROM Assessment Bilaterally Impaired Impairments B hamstring and PF tension/ flexion tone increased Strength Lower Extremity Strength Assessment Bilaterally Impaired Comments Strength Comments Pt does not tolerate MMT LEs and strength is no greater than 2+/5 B knee extension and PF tone for B ankles and no foot clearance with attempted standing and stepping, hips weak with posterior lean and reduced hip extension in standing Coordination Assessment Gross Coordination Gross Coordination Impaired Muscle Tone Muscle Tone WNL No M6 PT-IP Treatment Start: 10/07/23 17:06 Freq: NEEDED Status: Active Protocol: Document 10/29/23 13:30 TS (Rec: 10/29/23 13:37 TS [id number]) Physical Therapy Treatment Education Education Provided Safety M7 PT-IP Assessment and Plan Start: 10/07/23 17:06 Freq: NEEDED Status: Active Protocol: Document 10/29/23 13:30 TS (Rec: 10/29/23 13:37 TS [id number]) PT Summary Assessment and Plan Summary Impairments Pain,ROM,Strength,Balance, Coordination,Cognition,Bed Mobility,Transfers,Gait, Activity Tolerance Progress Towards Goals Progressing Toward Goals Assessment Summary Gwendolyn continues to do well with his mobility. He progressed his gait to ~400'SBA with FWW. He requires some assistance to stand from the lower surface of the chair. Goals Bed Mobility Goal Independent Transfer Goal Independent,Front Wheeled Walker Gait Goal Independent,Front Wheel Walker Gait Distance 150 Days to Meet Goals 10 Frequency of Treatment Frequency Of Treatment Once a Day Treatment Plan Physical Therapy Treatment Plan Bed Mobility Training,Transfer Training,Gait Training, Therapeutic Exercise,Balance Retraining,Discharge Planning, Hot or Cold Pack,Neuromuscular Re-ed,Coordination Retraining ,Manual Therapy Precautions Other Precautions Falls Recommendations To Nursing Amount of Assist Needed Standby Assistance Discharge Recommendations Other Discharge Recommendations SNF vs [facility] Transportation Needs at Discharge Private Vehicle
--- NOTE | 2023-10-29 16:12 | PC.NURSE ---
Assumed care of patient at 1600. A&Ox3, disoriented to month. C/o minor pain to R hand, pt not wanting pain meds at this time. Lung sounds CTA, bowel sounds present, CMS+. Pt oriented to room and call light, no needs at this time, resting comfortably in chair, call light within reach.
--- NOTE | 2023-10-29 16:46 | CM.DPNOTE ---
DCP note STITCHER AROUND reviewed EMR. Pt moved to room 208. Notification from [facility] worker Yolanda khalif: pt's financial status. Email states, The financial worker assigned to his case was trying to reach him. It sounds like he may have ?excess resources? that he needs to spend, or she needs more information from him about the resources and may need a copy of bank statements. She is going to try to reach LB or his DPOA tomorrow. I provided your contact information to the financial worker in case he needs assistance with that call as the whole process is confusing. Financial worker has not reached out to this CM team as of EOD. CM team will follow up with [facility] Yolanda Owen to see if further action is needed form CM team RAFAEL Zelaya
[2023-10-30 09:00] VITALS: BP 134/78; PULSE 78; RESP 16; TEMP 36.6; O2SAT 98
[2023-10-30] MEDS: TAMSULOSIN 0.4 MG CAPSULE PO (09:37)
[2023-10-30] MEDS: droNABinol 2.5 MG CAPSULE PO (09:37)
[2023-10-30] MEDS: ENOXAPARIN 40 MG/0.4 ML SYRINGE SUBCUT (09:37)
--- NOTE | 2023-10-30 10:35 | PT-IP ANOTE ---
Pt has plateaued with PT and will benefit from superv and use of RW at d/c. Will d/c acute PT. Pt awaiting placement. Recommend up with nsg.
--- NOTE | 2023-10-30 11:36 | P.PN_ITS ---
Subjective Subjective Interval history: happy and talkative, no complaints Exam Vital Signs (past 8 hours): - 10/30/23 09:00 Temperature 97.8 F Pulse Rate 78 Respiratory Rate 16 Blood Pressure 134/78 Pulse Oximetry 98 Oxygen Delivery Method Room Air Oxygen Flow Rate 0 Narrative Exam Narrative: well appearing Objective Labs 10/25/23 04:16 10/25/23 04:16 REPLACED BY [facility] Medical History Cognitive deficits Chronic hyponatremia Left elbow fracture Broken neck Multiple falls Cervical spondylosis with myelopathy Marijuana dependence Osteoarthritis Memory loss Osteoarthrosis Epilepsy, unspecified, not intractable, without status epilepticus Alcohol dependence, uncomplicated Surgical History History of neck surgery History of back surgery H/O foot surgery H/O thumb surgery History of esophagogastroduodenoscopy (EGD) History of colonoscopy Family History Father Cancer Aneurysm Mother Cancer Social History marital status: unknown household members: none lives independently: Yes housing: other ([facility]) Smoking Status: Current every day smoker alcohol intake: current Assessment & Plan Assessment & Plan narrative: 1. Alcohol Withdrawal, present on admission and resolved with mild residual acute encephalopathy 2. NSVT, new and improved. 3. Severe alcohol use disorder, present on admission and active. 4. Epilepsy, present on admission and active. 5. Hyponatremia, present on admission and stable. 6. 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 7. HTN, present on admission and active. 8. Right arm Laceration /left elbow contusion, present on admission and active. 9. Hypokalemia/hypomagnesemia. 10. Supratherapeutic dilantin level from possible amiodarone-dilantin interaction. 11. Right wrist pain likely secondary to arthritis, present on admission and stable. PLAN: -continue Marinol -waiting on placement Time-Based Coding :: [TOTAL MINUTES] spent with patient and on the chart (including review of chart, obtaining history, exam, reviewing outside data, placing orders, documenting exam and treatment plan, and counseling patient) on [DATE].
--- NOTE | 2023-10-30 16:25 | PC.NURSE ---
Pt up in chair most day. Denies any discomfort. Pt awaiting placement Call light w/in reach. Pt calls appropriately for needs Contine w/plan of care.
--- NOTE | 2023-10-30 18:44 | CM.DPC ---
DCP Continued: Reviewed EMR and team rounds for pt?s medical status. It was reported that the next step in placement for pt is a Medicaid Spend Down. During [facility] qualification process, it has been found that pt has more than the state Medicaid resource limit ($2,000) in his bank account with [facility]. A bank statement is required to be submitted to [facility] by 11/06 to continue with process. DCP entered room and introduced self/role. Pt was found in bed, alert and oriented, agreeable to discuss discharge plans/needs. Pt verbalized understanding of what was needed at this time, pt explained he has already paid for his burial services (for himself and his dog) so setting aside $1500 to assist with spend down might not be an option. Pt was able to provide contact with his bank (Claudine Abbott, ph#[phone]) who knows the patient well. DCP and pt called [facility] together and spoke with Claudine Abbott. Per pt's consent, Claudine was able to provide bank statement from 09/18/23 to present; printed with pt's facesheet. This bank statement to be sent to [facility] to continue with process. Plan: Continuing with Medicaid LTC qualification process. CM Team will continue to follow for coordination of discharge plans. MARIMAR Belcher
[2023-10-30] MEDS: ACETAMINOPHEN 325 MG TABLET 650 MG PO (20:14)
[2023-10-31] MEDS: ENOXAPARIN 40 MG/0.4 ML SYRINGE SUBCUT (08:30)
[2023-10-31] MEDS: droNABinol 2.5 MG CAPSULE PO (08:31)
[2023-10-31] MEDS: TAMSULOSIN 0.4 MG CAPSULE PO (08:31)
[2023-10-31 09:00] VITALS: BP 145/85; PULSE 75; RESP 16; TEMP 36.3; O2SAT 99
--- NOTE | 2023-10-31 09:42 | PM.PN.1 ---
Subjective Subjective Interval history: Subjective: He was doing well. He slept well. He has a good appetite. He denies any pain concerns. He was going to the bathroom without difficulty. Exam Vital Signs (past 8 hours): Oxygen Delivery Method Room Air Oxygen Flow Rate 0 Narrative Exam Narrative: NAD, alert and oriented. Fluent speech. Lungs are clear, normal rate and effort. Heart is regular, no murmur gallop or rub. Abdomen is soft, non distended. Extremities are free of edema. Objective Labs 10/25/23 04:16 10/25/23 04:16 [facility] Medical History Cognitive deficits Chronic hyponatremia Left elbow fracture Broken neck Multiple falls Cervical spondylosis with myelopathy Marijuana dependence Osteoarthritis Memory loss Osteoarthrosis Epilepsy, unspecified, not intractable, without status epilepticus Alcohol dependence, uncomplicated Surgical History History of neck surgery History of back surgery H/O foot surgery H/O thumb surgery History of esophagogastroduodenoscopy (EGD) History of colonoscopy Family History Father Cancer Aneurysm Mother Cancer Social History marital status: unknown household members: none lives independently: Yes housing: other ([facility]) Smoking Status: Current every day smoker alcohol intake: current Assessment & Plan Assessment & Plan narrative: 1. Alcohol Withdrawal, present on admission and resolved with mild residual acute encephalopathy. Resolved. 2. NSVT. Resolved.. 3. Severe alcohol use disorder, present on admission and active. 4. Epilepsy, present on admission and active. 5. Hyponatremia, present on admission and stable. 6. 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 7. HTN, present on admission and active. 8. Right arm Laceration /left elbow contusion, present on admission and active. 9. Hypokalemia/hypomagnesemia. Resolved. 10. Supratherapeutic dilantin level from possible amiodarone-dilantin interaction. Resolved. 11. Right wrist pain likely secondary to arthritis, present on admission and stable. PLAN: -continue Marinol -waiting on placement He was otherwise doing well and all medical issues have stabilized. Time-Based Coding :: [TOTAL MINUTES] spent with patient and on the chart (including review of chart, obtaining history, exam, reviewing outside data, placing orders, documenting exam and treatment plan, and counseling patient) on [DATE].
--- NOTE | 2023-10-31 10:42 | PC.NURSE ---
Patient sitting up in chair, watching television. He is sba to independent in his room. Eating well and mentation is wnl.
--- NOTE | 2023-10-31 14:08 | CM.DPC ---
Addendum entered by RAFAEL Davis 10/31/23 16:18: DCP Update: Pt continued to express preference to discharge as soon as possible, he is comfortable with discharging back to his apartment. DCP confirmed with pt friend, Joel, that his apartment is still available - pt has a valverde on his person. DCP to send referral to community screwdown operator for follow up due to pt living alone. MARIMAR Belcher Original Note: DCP Continued: Reviewed EMR and team rounds for pt?s medical status. Per predictive maintenance specialist, pt becoming anxious with placement process and stated he would like to go back to my apartment. DCP relayed this information to hospitalist. DCP sent requested bank statement to [facility] with pt's plans to use excess for medical bills at hospital, pending continued coordination with [facility]. Plan: Continuing with coordination with [facility] for LTC Medicaid authorization and placement. CM Team will continue to follow for coordination of discharge plans. MARIMAR Belcher
--- NOTE | 2023-10-31 16:08 | P.DS_ITS ---
History of Present Illness History of Present Illness Chief complaint: sent by PCP, generalized weakness Narrative: From H&P: 67 y/o with PMH of epilepsy, HTN, alcoholism, quit drinking 2 days ago and seen in PCP's office for weakness and dizziness. From then, he has no recollection of how he got to the ED. Presented tachycardic with mild alcohol withdrawal. On September 10 seen in the ED after GLF and Lt arm injury. On admission unable to participate in ROS. Discharge Providers Provider Date of admission: 10/03/23 22:15 Discharge Date: 11/02/23 Primary care physician: Noris Shipley MD Consults: 10/07/23 10:15 Consult to Occupational Therapy Evaluate & Treat Comment: Physician Instructions: Evaluate and treat Consult to Physical Therapy Evaluate & Treat Comment: Physician Instructions: Evaluate and Treat 10/09/23 08:45 Consult to Speech Therapy Evaluate & Treat Comment: Physician Instructions: Evaluate and treat 10/09/23 09:20 Consult to Dietitian, Adult Routine Comment: Reason For Exam: not eating, decreased fluid intake 10/12/23 08:16 Consult to Occupational Therapy Evaluate & Treat Comment: Physician Instructions: Evaluate and treat Consult to Physical Therapy Evaluate & Treat Comment: Physician Instructions: Evaluate and Treat 10/23/23 07:37 Consult to Occupational Therapy Evaluate & Treat Comment: Physician Instructions: Evaluate and treat Consult to Physical Therapy Evaluate & Treat Comment: Physician Instructions: Evaluate and Treat Discharge provider: Federico Azar MD Summary Hospital Course Discharge Diagnosis: 1. Alcohol Withdrawal, present on admission and resolved with mild residual acute encephalopathy. Resolved. 2. NSVT. Resolved.. 3. Severe alcohol use disorder, present on admission and active. 4. Epilepsy, present on admission and active. 5. Hyponatremia, present on admission and stable. 6. 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 7. HTN, present on admission and active. 8. Right arm Laceration /left elbow contusion, present on admission and active. 9. Hypokalemia/hypomagnesemia. Resolved. 10. Supratherapeutic dilantin level from possible amiodarone-dilantin interaction. Resolved. 11. Right wrist pain likely secondary to arthritis, present on admission and stable. Hospital Course: He was admitted with alcohol withdrawal which was severe. He also had initial complications of runs of ventricular tachycardia and was treated with amiodarone for about 1-1/2 days. The patient had a very persistent encephalopathy lasting for weeks. At 1 point he would declined eating or any other activity and it appeared that he would likely move to comfort care. There is also concerned about the possibility of an interaction between his amiodarone and his chronic Dilantin which he takes for seizure disorder. The patient did have slow improvement of encephalopathy and ultimately Marinol was started for appetite stimulation. The patient improved dramatically over the last 7-10 days of his admission. He was able to ambulate and participate in all activities as well as eating and drinking. Social work did work with him to attain him housing at an assisted living. These efforts were close to being completed when he change his mind in elected to return home to his apartment. In the day of discharge he was adamant about discharging home and discussed his plan with his friends by telephone. Ultimately the availability of his apartment was confirmed by social work and he was felt to be medically stable for discharge home. Status at Discharge Cognitive/behavioral status at discharge: at baseline, oriented Functional status at discharge: uses cane/walker Overall status at discharge: patient is back to baseline Time Spent with Patient Time spent: Greater than 30 minutes Exam Vital Signs (past 8 hours): - 10/31/23 09:00 Temperature 97.3 F L Pulse Rate 75 Respiratory Rate 16 Blood Pressure 145/85 H Pulse Oximetry 99 Oxygen Flow Rate 0 Oxygen Delivery Method Room Air Oxygen Flow Rate 0 Narrative Exam Narrative: NAD, alert and oriented. Fluent speech. Lungs are clear, normal rate and effort. Heart is regular, no murmur gallop or rub. Abdomen is soft, non distended. Extremities are free of edema. Objective Imaging Multiple studies:: Radiologist's impression: Wrist x-ray: Degenerative triscaphe joint changes Osteopenia and small vessel atherosclerosis Elbow x-ray: 1. Diffuse osseous demineralization limits sensitivity for subtle nondisplaced fracture. Within these limitations, no definite fracture or dislocation. If there is high clinical suspicion for a radiographically occult fracture, recommend cross- sectional imaging for further evaluation. 2. Slightly increased lucency of the olecranon which is nonspecific and could reflect sequela of osteomyelitis and or inflammation. If clinically warranted, consider an MRI for further evaluation. 3. Scattered punctate radiodensities which may reflect foreign debris. Echo: Normal sinus rhythm. Normal LV size; borderline concentric LVH; normal wall motion and LV systolic function. EF is 65-70%. Normal chamber sizes. No valvular abnormalities. No prior study available for comparison. Head CT: 1. CT head without acute intracranial abnormalities or acute calvarial fractures. 2. Age-related senescent changes and sequela of chronic small vessel ischemic disease. Chest x-ray: No acute cardiopulmonary abnormality is seen. Labs 10/25/23 04:16 10/25/23 04:16 [facility] Medical History Cognitive deficits Chronic hyponatremia Left elbow fracture Broken neck Multiple falls Cervical spondylosis with myelopathy Marijuana dependence Osteoarthritis Memory loss Osteoarthrosis Epilepsy, unspecified, not intractable, without status epilepticus Alcohol dependence, uncomplicated Surgical History History of neck surgery History of back surgery H/O foot surgery H/O thumb surgery History of esophagogastroduodenoscopy (EGD) History of colonoscopy Family History Father Cancer Aneurysm Mother Cancer Social History marital status: unknown household members: none lives independently: Yes housing: other ([facility]) Smoking Status: Current every day smoker alcohol intake: current Discharge Assessment & Plan Assessment and Plan Assessment: 1. Alcohol Withdrawal, present on admission and resolved with mild residual acute encephalopathy. Resolved. 2. NSVT. Resolved.. 3. Severe alcohol use disorder, present on admission and active. 4. Epilepsy, present on admission and active. 5. Hyponatremia, present on admission and stable. 6. 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 7. HTN, present on admission and active. 8. Right arm Laceration /left elbow contusion, present on admission and active. 9. Hypokalemia/hypomagnesemia. Resolved. 10. Supratherapeutic dilantin level from possible amiodarone-dilantin interaction. Resolved. 11. Right wrist pain likely secondary to arthritis, present on admission and stable. Plan of Treatment: On the day of discharge, the patient was very insistent on returning to his apartment. He appeared to be at a functional and cognitive baseline. He did have the chance to discuss his plans with his friend on the phone but would not be dissuaded. He does have a walker and cane at home. He also has a plan for his groceries and food preparations. Discharge Plan Discharge Plan Patient Disposition: Home Provider Discharge Comment: Stable for discharge home. Have arranged for a safety check. Discharge orders & Medications Prescriptions: New dronabinol 2.5 mg Capsule 2.5 mg PO DAILY Qty: 30 1RF Continued amlodipine 5 mg tablet 5 mg PO DAILY Qty: 30 2RF phenytoin sodium extended [Dilantin Extended] 100 mg capsule 500 mg PO 1200,2100 Qty: 60 0RF Patient Comments: 1 cap in the morning, 2 at noon and 2 at night. Discontinued cephalexin 500 mg capsule 500 mg PO Q8H Qty: 21 0RF Medication counseling provided by Pharmacist: No Follow up/Referrals: Noris Shipley MD [Primary Care Provider] - Activity Restrictions/Additional Instructions: Use a walker. Discharge Health Status Multidrug resistant organism: No MDRO Diet/Activity/Treatments Diet: Regular Visit Report/Discharge Packet Instructions: Alcohol Use Disorder, How to Prevent Falls, Dronabinol Stand Alone Forms: Patient Portal/API Discharge Data Primary Care Provider: Noris Shipley
== END 2023-10-31 16:35 | disposition home or self-care (01) | DRG 896 ==
LOC: ED 21:48 → ICU 10-04 11:04 → AC 10-06 09:09
PROVIDERS: Emergency Medicine; Hospitalist; Internal Medicine; Admitting Provider Internal Medicine; Emergency Provider Emergency Medicine; Family Provider Internal Medicine; PCP Family Medicine; Visit Provider Internal Medicine
DX: F10.939 Alcohol use, unspecified with withdrawal, unspecified (principal); G93.41 Metabolic encephalopathy; E87.1 Hypo-osmolality and hyponatremia; I47.20 Ventricular tachycardia, unspecified; G11.9 Hereditary ataxia, unspecified; G40.909 Epilepsy, unspecified, not intractable, without status epilepticus; I10 Essential (primary) hypertension; S41.112D Laceration without foreign body of left upper arm, subsequent encounter; W18.30XD Fall on same level, unspecified, subsequent encounter; E87.6 Hypokalemia; E83.42 Hypomagnesemia; R63.0 Anorexia; S50.02XD Contusion of left elbow, subsequent encounter; M19.031 Primary osteoarthritis, right wrist; F17.200 Nicotine dependence, unspecified, uncomplicated; R79.89 Other specified abnormal findings of blood chemistry; Y90.0 Blood alcohol level of less than 20 mg/100 ml; Z91.81 History of falling; Z68.20 Body mass index [BMI] 20.0-20.9, adult; Z66 Do not resuscitate
CPT/HCPCS: 36415; 70450; 71045; 73070; 73100; 80048; 80053; 80185; 80305; 80320; 82140; 82550; 82962; 83690; 83735; 83880; 84132; 84484; 85025; 85027; 85610; 85730; 87633; 87797; 92610; 93005; 93010; 93306; 96361; 96365; 96375; 97116; 97129; 97163; 97164; 97166; 97167; 97530; 99284; J0282; J1650; J2060; J2270; J2405; J3475

== ENCOUNTER 2023-11-03 18:37 | Emergency (ER) | payer MEDICARE, MEDICAID, SELFPAY ==
[2023-11-03 18:43] VITALS: BP 123/80; PULSE 87; RESP 16; TEMP 37; O2SAT 98; BMI 22.9
--- NOTE | 2023-11-03 18:53 | DI.RAD.S_ITS ---
PROCEDURE: XR CHEST 2V INDICATIONS: possibel aspiration of food TECHNIQUE: 2 views of the chest were acquired. COMPARISON: [facility], CR, XR CHEST 1V, 10/03/2023, 16:37. FINDINGS: Surgical changes and devices: Postsurgical changes are noted in visualized lower cervical spine and left humeral shaft. Lungs and pleura: Lungs are clear. No pleural effusions or pneumothorax. Mediastinum: Mediastinal contours are normal. Heart size is normal. Bones and chest wall: No suspicious bony abnormalities. Soft tissues appear unremarkable. IMPRESSION: No acute cardiopulmonary pathology. Dictated by: Dereje Yeh M.D. on 11/03/2023 at 19:21 Approved by: Dereje Yeh M.D. on 11/03/2023 at 19:21
--- NOTE | 2023-11-03 19:25 | ED_ITS ---
HPI - Recheck/Abnormal Lab/Rx General Chief Complaint: Recheck/Abnormal Lab/Rx Stated Complaint: Foreign body aspiration -steak Time Seen by Provider: 11/03/23 18:40 Source: patient and EMS Mode of arrival: EMS History of Present Illness HPI narrative: Patient is a 67-year-old male who has had issues with having food bolus impactions in his esophagus in the past. Has required endoscopies in the past. He states that this evening he was eating a piece of steak. He states he felt like the steak stuck in his throat. Despite the stated complaint of aspiration he feels that it is stuck in his esophagus. No problems breathing. He went to the bathroom to try to vomit to see if this would improve the symptoms. He was able to get up of couple small pieces of steak but does not feel that everything has resolved. Currently no problems breathing. He states when he tries to drink something he was to spit the water back up again. Related Data Previous Rx's Medication Instructions Recorded amlodipine 5 mg tablet 5 mg PO DAILY #30 tabs 04/25/23 dronabinol 2.5 mg capsule 2.5 mg PO DAILY #30 caps 10/31/23 phenytoin sodium extended 100 mg 500 mg (5 x 100 mg) PO 1200,2100 10/31/23 capsule (Dilantin Extended) #60 caps Allergies Allergy/AdvReac Type Severity Reaction Status Date / Time meperidine [MEPERIDINE] AdvReac Unknown Vomiting Verified 10/03/23 16:22 Review of Systems Review of Systems Narrative: See HPI Patient History Medical History Cognitive deficits Chronic hyponatremia Left elbow fracture Broken neck Multiple falls Cervical spondylosis with myelopathy Marijuana dependence Osteoarthritis Memory loss Osteoarthrosis Epilepsy, unspecified, not intractable, without status epilepticus Alcohol dependence, uncomplicated Surgical History History of neck surgery History of back surgery H/O foot surgery H/O thumb surgery History of esophagogastroduodenoscopy (EGD) History of colonoscopy Family History Father Cancer Aneurysm Mother Cancer Social History marital status: unknown household members: none lives independently: Yes housing: other ([facility]) Smoking Status: Former smoker alcohol intake: current Smoking Status: Former smoker tobacco type: cigarettes alcohol intake frequency: 0-2 drinks per day Alcohol type: beer and hard liquor Substance Use Type: marijuana Exam Initial Vital Signs Initial Vital Signs: Vital Signs Temperature 98.6 F 11/03/23 18:43 Pulse Rate 87 11/03/23 18:43 Respiratory Rate 16 11/03/23 18:43 Blood Pressure 123/80 11/03/23 18:43 Pulse Oximetry 98 11/03/23 18:43 Oxygen Delivery Method Room Air 11/03/23 18:43 HENMT Head: normal to inspection and normocephalic Resp Effort & Inspection: normal respiratory effort Auscultation: clear to auscultation bilaterally Cardio Rate: regular rate Rhythm: regular rhythm GI Inspection: normal to inspection and non-distended Skin General: no rashes or lesions noted Neuro General: patient alert, patient awake and moves all extremities Extrem General: normal to inspection Course Orders Ordered: ED Orders 11/03/23 18:53 XR chest 2V Stat Discontinued Medications Glucagon (Glucagon,Human Recombinant 1 Mg/Ml Vial) 1 mg IV NOW ONE Stop: 11/03/23 19:25 Last Admin: 11/03/23 20:01 Dose: 1 mg Documented By: SB Vital Signs Vital signs: Vital Signs - 8 hr 11/03/23 18:43 Temperature 98.6 F Pulse Rate 87 Respiratory Rate 16 Blood Pressure 123/80 Pulse Oximetry 98 Oxygen Delivery Method Room Air MDM - Recheck/Abnormal Lab/Rx Imaging Data Chest x-ray: Radiologist's Impression: PROCEDURE: XR CHEST 2V INDICATIONS: possibel aspiration of food TECHNIQUE: 2 views of the chest were acquired. COMPARISON: [facility], , XR CHEST 1V, 10/03/2023, 16:37. FINDINGS: Surgical changes and devices: Postsurgical changes are noted in visualized lower cervical spine and left humeral shaft. Lungs and pleura: Lungs are clear. No pleural effusions or pneumothorax. Mediastinum: Mediastinal contours are normal. Heart size is normal. Bones and chest wall: No suspicious bony abnormalities. Soft tissues appear unremarkable. IMPRESSION: No acute cardiopulmonary pathology. [facility] Narrative Medical decision making narrative: No respiratory distress. This is an esophageal foreign body. I have low suspicion for aspiration. X-ray is unremarkable. Patient is able to tolerate his secretions and small amounts of fluid. After glucagon and warm soda and time he was had a complete resolution of his symptoms. I discussed with him the importance of taking small bites and chewing affectively. Also recommended that he contact his primary doctor to discuss the indications for a referral to see Gastroenterology as he may need a scope in the future. There was no indication to do this emergently. He was given return precautions. He expressed understanding and agreement with plan. Discharge Plan Departure Patient Disposition: Home Clinical Impression: Food impaction of esophagus Activity Restrictions/Additional Instructions: Continue to take all of your medications as directed. Be sure that you were taking small bites and chewing completely before swallowing. This can be helpful with preventing this from happening once again. Also recommend that you talk with your primary doctor about the indications for a referral to see gastroenterology. Prescriptions: No Action amlodipine 5 mg tablet 5 mg PO DAILY Qty: 30 2RF dronabinol 2.5 mg Capsule 2.5 mg PO DAILY Qty: 30 1RF phenytoin sodium extended [Dilantin Extended] 100 mg capsule 500 mg PO 1200,2100 Qty: 60 0RF Patient Comments: 1 cap in the morning, 2 at noon and 2 at night. Referrals: Noris Shipley MD [Primary Care Provider] - Stand Alone Forms: Patient Portal/API
[2023-11-03] MEDS: GLUCAGON,HUMAN RECOMBINANT 1 MG/ML VIAL IV (20:01)
[2023-11-03 21:05] VITALS: BP 106/63; PULSE 78; RESP 18; O2SAT 99
== END 2023-11-03 21:18 | disposition home or self-care (01) ==
PROVIDERS: Emergency Provider Emergency Medicine; Family Provider Internal Medicine; PCP Family Medicine
DX: T18.128A Food in esophagus causing other injury, initial encounter (principal)
CPT/HCPCS: 71046; 96374; 99283; 99284; J1610

== ENCOUNTER 2023-11-05 13:24 | Emergency (ER) | payer MEDICARE, MEDICAID, SELFPAY ==
[2023-11-05 13:31] VITALS: BP 113/80; PULSE 74; RESP 16; TEMP 36.4; O2SAT 97; BMI 21.5
--- NOTE | 2023-11-05 14:31 | ED_ITS ---
HPI - Recheck/Abnormal Lab/Rx <Lizeth Silva PA-C - Last Filed: 11/05/23 15:56> General Chief Complaint: Recheck/Abnormal Lab/Rx Stated Complaint: Returning; Recent Seizure Time Seen by Provider: 11/05/23 13:59 History of Present Illness HPI narrative: Patient is a very pleasant 67-year-old male presents to the emergency room department today requesting a refill of his Dilantin. And requests to speak with social science instructor. Patient was recently discharged from the hospital after a hospital stay of over a month. He was sent home with a prescription of Dilantin, and a prescription medication for hypertension. He was encouraged to see his primary care doctor which he did not. He is now here because he is almost out of his Dilantin. The patient also is requesting to speak to social work because he is hoping to get some in-home assistance. The patient currently lives alone, he is of advanced age but actually looks older and acts older than stated age. He obviously has some underlying cognitive disconnect an underlying cognitive decline. The patient states that he has a girlfriend and friends who help him. However, even talking with him just briefly here in the emergency room department he has difficulty understanding how he is supposed to take his medications. My understanding is that arrangements have been made for him to be checked on by with they call a in-home roving manager manufacturing who comes to [facility] to check on them make sure that everything is okay on a weekly basis. My understanding also from speaking with social worked as unfortunately the patient does not qualify for in-home care and he would have to pay out of pocket which is financially not feasible for the patient. Patient does not have any physical complaints today. Related Data Previous Rx's Medication Instructions Recorded dronabinol 2.5 mg capsule 2.5 mg PO DAILY #30 caps 10/31/23 phenytoin sodium extended 100 mg 500 mg (5 x 100 mg) PO 1200,2100 10/31/23 capsule (Dilantin Extended) #60 caps amlodipine 5 mg tablet 5 mg PO DAILY #30 tabs 11/04/23 phenytoin sodium extended 100 mg 500 mg (5 x 100 mg) PO BID #120 11/05/23 capsule (Dilantin Extended) caps Allergies Allergy/AdvReac Type Severity Reaction Status Date / Time meperidine [MEPERIDINE] AdvReac Unknown Vomiting Verified 10/03/23 16:22 Review of Systems <Lizeth Silva PA-C - Last Filed: 11/05/23 15:56> Review of Systems Narrative: Negative except as above patient does not have any physical complaints. Here for med refill, and speak with social work. Patient History <Lizeth Silva PA-C - Last Filed: 11/05/23 15:56> Medical History Cognitive deficits Chronic hyponatremia Left elbow fracture Broken neck Multiple falls Cervical spondylosis with myelopathy Marijuana dependence Osteoarthritis Memory loss Osteoarthrosis Epilepsy, unspecified, not intractable, without status epilepticus Alcohol dependence, uncomplicated Surgical History History of neck surgery History of back surgery H/O foot surgery H/O thumb surgery History of esophagogastroduodenoscopy (EGD) History of colonoscopy Family History Father Cancer Aneurysm Mother Cancer Social History marital status: unknown household members: none lives independently: Yes housing: other ([facility]) Smoking Status: Former smoker alcohol intake: current Smoking Status: Former smoker tobacco type: cigarettes alcohol intake frequency: 0-2 drinks per day Alcohol type: beer and hard liquor Substance Use Type: marijuana Exam <Lizeth Silva PA-C - Last Filed: 11/05/23 15:56> Initial Vital Signs Initial Vital Signs: Vital Signs Temperature 97.6 F 11/05/23 13:31 Pulse Rate 74 11/05/23 13:31 Respiratory Rate 16 11/05/23 13:31 Blood Pressure 113/80 11/05/23 13:31 Pulse Oximetry 97 11/05/23 13:31 Oxygen Delivery Method Room Air 11/05/23 13:31 Reviewed Const General: cooperative, comfortable, No acute distress and No in distress Orientation: Orientation (Patient does have signs of obvious cognitive decline and diminishment.) Eyes Eyelids: eyelids normal Pupils: PERRL EOM: EOM intact bilaterally Skin Other: Patient has multiple wounds and scrapes on his arms. None of them are infected, all healing well. His Band-Aid to the right elbow. Neuro General: patient alert, patient awake and gait normal (Currently using a walker.) Cognition: abnormal cognition (Patient has some obvious cognitive decline. his memory decreased) Psych Appearance: disheveled (Mildly disheveled) Speech and Movement: speech and movement normal Mood: labile mood Affect: labile affect Attitude: cooperative Thought Process: normal Thought Content: other (Patient has definite cognitive declined) Judgment: limited <Vilma Santiago DO - Last Filed: 11/06/23 19:38> Initial Vital Signs Initial Vital Signs: Vital Signs Temperature 97.6 F 11/05/23 13:31 Pulse Rate 74 11/05/23 13:31 Respiratory Rate 16 11/05/23 13:31 Blood Pressure 113/80 11/05/23 13:31 Pulse Oximetry 97 11/05/23 13:31 Oxygen Delivery Method Room Air 11/05/23 13:31 Course <Lizeth Silva PA-C - Last Filed: 11/05/23 15:56> Orders Ordered: ED Orders 11/05/23 13:41 Consult to [facility] Aerospace Quality Engineer Stat Vital Signs Vital signs: Vital Signs - 8 hr 11/05/23 13:31 Temperature 97.6 F Pulse Rate 74 Respiratory Rate 16 Blood Pressure 113/80 Pulse Oximetry 97 Oxygen Delivery Method Room Air <Vilma Santiago DO - Last Filed: 11/06/23 19:38> Orders Ordered: ED Orders 11/05/23 13:41 Consult to [facility] Aerospace Quality Engineer Stat Vital Signs Vital signs: Vital Signs - 8 hr 11/05/23 13:31 Temperature 97.6 F Pulse Rate 74 Respiratory Rate 16 Blood Pressure 113/80 Pulse Oximetry 97 Oxygen Delivery Method Room Air MDM - Recheck/Abnormal Lab/Rx <EMMETT Stafford Last Filed: 11/05/23 15:56> MDM Narrative Medical decision making narrative: Patient is a very pleasant 67-year-old male here in the emergency room department requesting a refill is dilated, asking to speak with social work. Currently this time his Dilantin has been filled. Currently at this time social work has come down and spoken with him. He has been given multiple packets for resources. We have also spoken with his friends who are here with him. The traveling roving manager manufacturing came out to also speak with him and make arrangements for weekly checks. He currently has an appointment with his primary care doctor on November 10. Patient has obvious cognitive decline. However this is not new, ongoing. The patient does not have any physical complaints. I do not feel a workup is warranted here in the emergency room department. After the patient speaks with social work he is discharged under the care of his friends. Differential diagnosis underlying cognitive decline. Known hypertension. Known seizure disorder. Noncompliant with his medications. Socioeconomic d eficiencies. Med refill. Social work assistance. Discharge Plan Departure Patient Disposition: Home Clinical Impression: Seizure Activity Restrictions/Additional Instructions: Please make arrangements to follow up with your primary care doctor. Please take your blood pressure medications daily. Please take your Dilantin 5 pills twice a day daily. Both of these medications make sure that you do not have any issues or problems the blood pressure medications make sure that your blood pressure stays down. The Dilantin make sure that you do not have a seizure. Make sure that you follow-up with the social science instructor's recommendations. Return to the emergency department as needed. Prescriptions: New phenytoin sodium extended [Dilantin Extended] 100 mg capsule 500 mg PO BID Qty: 120 0RF No Action amlodipine 5 mg tablet 5 mg PO DAILY Qty: 30 2RF dronabinol 2.5 mg Capsule 2.5 mg PO DAILY Qty: 30 1RF phenytoin sodium extended [Dilantin Extended] 100 mg capsule 500 mg PO 1200,2100 Qty: 60 0RF Patient Comments: 1 cap in the morning, 2 at noon and 2 at night. Referrals: Noris Shipley MD [Primary Care Provider] - Stand Alone Forms: Patient Portal/API ED Sign-out <Vilma Sanitago DO - Last Filed: 11/06/23 19:38> Cosign ED Attending Jessiature Attestation: I was immediately available in the department for consultation.
--- NOTE | 2023-11-05 15:49 | CM.SWNOTE ---
ED MANAGER LOAN Note Patient is 67 y/o male who presents to ED with friend due to concern for seizure and need for medication refill, and hoping to get a caregiver. Patient had recent admission at in Acute care from 10/03/23-10/31/23, patient endorsed preference to d/c to home after [facility] search and LTC Medicaid application process. Patient has hx of GLFs, poor balance, ETOH use with Wernickes cognitive decline, and hx of seizures. Patient is DNR/DNI, assigned DPOA is patient's friend Layo. Documents in EMR. MANAGER LOAN confirms with [facility] that new referral started for patient yesterday with PT, RN and MANAGER LOAN home health services. Patient was also discharged with Community Boat Tender referral with [facility] Don Moreno. Patient's PCP is Dr. Weaver, patient has upcoming PCP appt on Friday11/11/23, patient has [facility] insurance. After reviewing EMR, care management made extensive efforts with [facility] CM Yolanda Owen and assigned Financial CM for patient's LTC Medicaid application and patient is identified as Medicaid [place]. MANAGER LOAN calls Yolanda Owen HCS case preparer and liner and leaves VM. MANAGER LOAN calls Don Moreno Community Boat Tender regarding patient and he states he plans to meet with patient in ED. MANAGER LOAN calls PCP office to see if patient's appt can be moved to a sooner date, it is reported that patient's PCP is out of town this week. MANAGER LOAN enters room to meet with patient, patient presents as A/O to self, person and place. Patient presents confused about date and day of the week. Patient presents with bag of prescriptions and a box of non-alcoholic beer cans. Patient states he drinks non-alcoholic beer and does not drink alcohol any more and has been doing so for the last few weeks. Patient states things are going okay at home, Patient endorses difficulty getting up and down sometimes, patient states he has cane and FWW at home. Patient endorses concern for showering but he states he calls his neighbor when he is about to shower and when he gets out so that she is on standby if he needs assistance. Patient has life alert as well. Patient states he manages ADLs but sometimes struggles with remembering to take his medication. Patient states that friends and neighbors check in on patient. Patient also has life alert. Patient states he receives rides from friends and neighbors as needed. Community Boat Tender arrives to meet with patient with MANAGER LOAN present. Don plans to meet with patient at his house to assist with coordinating senior care care and caregiver services. Patient endorses preference to reside at home. Patient states he can walk to the bank and he has people check on him but he likes not living with others. Patient's friend Mo arrives upon ED provider's medical clearance to d/c patient home. ED provider refills prescription. MANAGER LOAN provides patient and friend with Don Moreno's contact information, caregiver resources, and [facility] brochure. There is concern for patient's self neglect and Don Moreno reports he is going to make an APS report. Plan: patient to d/c to home upon medical clearance, [facility] to follow up with patient, Community Boat Tender to follow up with patient, patient has PCP f/u appt on Friday, APS to f/u with patient, and Community playground official to coordinate with [facility] with patient's [facility] case preparer and liner. LIZBETH Roth
== END 2023-11-05 15:39 | disposition home or self-care (01) ==
PROVIDERS: Emergency Provider Physician Assistant; Family Provider Internal Medicine; PCP Family Medicine
DX: Z76.0 Encounter for issue of repeat prescription (principal); G40.909 Epilepsy, unspecified, not intractable, without status epilepticus; I10 Essential (primary) hypertension
CPT/HCPCS: 99281

== ENCOUNTER 2023-11-08 12:11 | Inpatient (IN) | payer MEDICARE, MEDICAID, SELFPAY ==
[2023-11-08] VITALS (14 sets, daily range): BP systolic 122–139; BP diastolic 64–91; PULSE 67–73; RESP 12–18; TEMP 36.6–36.7; O2SAT 96–100; BMI 19.6
--- NOTE | 2023-11-08 13:02 | ED_ITS ---
HPI - General Adult General Chief complaint: Recheck/Abnormal Lab/Rx Stated complaint: needs medication Time Seen by Provider: 11/08/23 12:28 Source: patient Mode of arrival: Ambulatory History of Present Illness HPI narrative: Patient is a 67-year-old male was brought in by EMS for evaluation of concern for medication issues. Within the past couple weeks he was discharged from this facility after spending an extended amount of time secondary to issues with long-term placement. He was eventually discharged home after the patient decided that he did not want to go to a long-term care facility and wanted to go home. He has been seen 2 prior times within the past week. One time for an esophageal food impaction that was eventually resolved on its own and discharged home. A 2nd time for potential seizure/syncope. There was concern initially that he was not taking his Dilantin appropriately. He does have home health. Concern from home health about his ability to take care of himself at home. Here in the emergency department he reports no symptoms. No urinary symptoms. He denies chest pain, shortness of breath. He denies headache or abdominal pain. Related Data Previous Rx's Medication Instructions Recorded dronabinol 2.5 mg capsule 2.5 mg PO DAILY #30 caps 10/31/23 amlodipine 5 mg tablet 5 mg PO DAILY #30 tabs 11/04/23 phenytoin sodium extended 100 mg 500 mg (5 x 100 mg) PO BID #120 11/05/23 capsule (Dilantin Extended) caps Allergies Allergy/AdvReac Type Severity Reaction Status Date / Time meperidine [MEPERIDINE] AdvReac Unknown Vomiting Verified 11/08/23 14:21 Review of Systems Review of Systems Narrative: See HPI Patient History Medical History Cognitive deficits Chronic hyponatremia Left elbow fracture Broken neck Multiple falls Cervical spondylosis with myelopathy Marijuana dependence Osteoarthritis Memory loss Osteoarthrosis Epilepsy, unspecified, not intractable, without status epilepticus Alcohol dependence, uncomplicated Surgical History History of neck surgery History of back surgery H/O foot surgery H/O thumb surgery History of esophagogastroduodenoscopy (EGD) History of colonoscopy Family History Father Cancer Aneurysm Mother Cancer Social History marital status: unknown household members: none lives independently: Yes housing: other ([place] [facility]) Smoking Status: Former smoker alcohol intake: current Smoking Status: Former smoker tobacco type: cigarettes alcohol intake frequency: 0-2 drinks per day Alcohol type: beer and hard liquor Substance Use Type: marijuana Exam Initial Vital Signs Initial Vital Signs: Vital Signs Pulse Rate 71 11/08/23 12:44 Const General: cooperative, comfortable and No ill appearing HENMT Head: normal to inspection and normocephalic Resp Effort & Inspection: normal respiratory effort Auscultation: clear to auscultation bilaterally Cardio Rate: regular rate Rhythm: regular rhythm GI Inspection: normal to inspection and non-distended Skin General: no rashes or lesions noted Neuro General: patient alert, patient awake and moves all extremities Extrem General: normal to inspection Psych Appearance: grossly normal Scores GCS [place] coma scale eye opening: Spontaneous [place] coma scale verbal response: Confused [place] coma scale motor response: Obey commands [place] coma scale total score: 14 Course Orders Ordered: ED Orders 11/08/23 12:55 Acetaminophen Stat Complete Blood Count AUTO DIFF Stat Comprehensive Metabolic Panel Stat Ethanol (ETOH) Stat Lipase Stat Magnesium Stat PTT Partial Thromboplastin Eduar Stat Phenytoin / Dilantin Stat Prolactin Stat Prothrombin Time INR Stat Salicylate Stat Thyroid Stimulating Hormone Stat 11/08/23 13:05 Consult to DEMAND GENERATION MANAGER - [employer] Stat CT head/brain wo con Stat 11/08/23 13:06 XR shoulder LT min 2V Stat 11/08/23 13:34 Ammonia (NH3) Stat 11/08/23 14:48 Urinalysis and Microscopic Stat Urine Culture Stat Urine Drug Screen, Rapid Stat 11/08/23 17:05 COVID19 -Nasal RAPID Stat Discontinued Medications Cephalexin HCl (Cephalexin 250 Mg Capsule) 500 mg PO NOW ONE Stop: 11/08/23 15:55 Last Admin: 11/08/23 16:03 Dose: 500 mg Documented By: REID Thiamine HCl 100 mg/ Sodium (Chloride) 101 mls @ 404 mls/hr IV NOW ONE Stop: 11/08/23 13:04 Last Infusion: 11/08/23 14:52 Dose: Infused Documented By: Admin: 11/08/23 14:10 Dose: 404 mls/hr Documented By: REID Vital Signs Vital signs: Vital Signs - 8 hr 11/08/23 12:44 11/08/23 12:45 11/08/23 12:45 Temperature Pulse Rate 71 73 Respiratory Rate Blood Pressure 126/64 Pulse Oximetry 97 Oxygen Delivery Method 11/08/23 12:57 11/08/23 13:00 11/08/23 13:00 Temperature 98.0 F Pulse Rate 72 68 Respiratory Rate 16 Blood Pressure 126/64 131/69 Pulse Oximetry 97 99 Oxygen Delivery Method Room Air Room Air 11/08/23 13:30 11/08/23 14:00 11/08/23 14:01 Temperature Pulse Rate 70 68 69 Respiratory Rate Blood Pressure Pulse Oximetry 99 99 99 Oxygen Delivery Method 11/08/23 14:01 11/08/23 14:30 11/08/23 14:31 Temperature Pulse Rate 68 67 Respiratory Rate Blood Pressure 139/66 Pulse Oximetry 99 100 Oxygen Delivery Method Room Air 11/08/23 14:31 11/08/23 15:00 11/08/23 15:30 Temperature Pulse Rate 68 69 Respiratory Rate 18 Blood Pressure 122/72 Pulse Oximetry 100 Oxygen Delivery Method Medical Decision Making Medical Records Medical records reviewed: Yes I reviewed the patient's medical records. Lab Data Lab results reviewed: Yes I reviewed the patient's lab results. 11/08/23 12:55 11/08/23 12:55 Labs: Lab Results 11/08/23 11/08/23 11/08/23 Range/Units 12:55 13:34 14:48 WBC 5.6 (4.5-11.0) X10^3/uL RBC 3.51 L (4.5-5.9) X10^6/uL Hgb 11.4 L (13.5-17.5) g/dL Hct 34.0 L (41-53) % MCV 97.0 (80-100) fL MCH 32.6 (26-34) PG MCHC 33.7 (30-36) % RDW 14.8 (11.6-14.8) % Plt Count 324 (150-400) X10^3/uL Neut % (Auto) 60.0 (50-75) % Lymph % (Auto) 26.1 (25-40) % [place] % (Auto) 10.1 (3-14) % Eos % (Auto) 2.7 (2-4) % Baso % (Auto) 1.1 (0-2) % Neut # (Auto) 3400 (8700-6754) /uL Lymph # (Auto) 1500 (9667-5269) /uL [place] # (Auto) 600 (0-900) /uL Eos # (Auto) 200 (0-450) /uL Baso # (Auto) 100 (0-100) /uL PT 11.5 (9.4-12.5) SECONDS INR 1.0 (0.9-1.3) APTT 25 L (25.1-36.5) SECONDS Sodium 138 (137-145) mmol/L Potassium 4.4 (3.4-5.1) mmol/L Chloride 108 H (98-107) mmol/L Carbon Dioxide 23 (22-32) mmol/L BUN 8 L (9-20) mg/dL Creatinine 0.64 L (0.66-1.25) mg/dL Estimated GFR > 60 (>60) mL/min BUN/Creatinine Ratio 12.5 (6-22) Glucose 111 H (80-110) mg/dL Calcium 8.9 (8.4-10.2) mg/dL Magnesium 1.7 (1.6-2.3) mg/dL Total Bilirubin 0.6 (0.2-1.3) mg/dL AST 37 (17-59) IU/L ALT 15 (<50) IU/L Alkaline Phosphatase 108 (38-126) U/L Ammonia < 9 L (9-30) umol/L Total Protein 7.0 (6.3-8.2) g/dL Albumin 3.5 (3.5-5.0) g/dL Globulin 3.5 (1.7-4.1) g/dL Albumin/Globulin Ratio 1.0 (1.0-2.8) Lipase 35 (23-300) U/L TSH 1.81 (0.47-4.68) uIU/mL Prolactin 4.9 (3.7-17.9) ng/mL Urine Color Yellow Urine Appearance Cloudy Urine pH 6.0 (4.5-8.0) Ur Specific [place] 1.020 (1.000-1.035) Urine Protein Trace H (Negative) Urine Glucose (UA) Negative (Negative) g/dL Urine Ketones Negative (NEGATIVE) Urine Occult Blood Trace-intact (Negative) Urine Nitrate Positive H (Negative) Urine Bilirubin Negative (NEGATIVE) Urine Urobilinogen 0.2 (0.2) E.U./dL Ur Leukocyte Esterase 2+ H (NEGATIVE) Urine RBC 0-1/hpf (0-5/HPF) Urine WBC >100/hpf H (0-5/HPF) Ur Squamous Epith Cells 0-1 /hpf (0-5/HPF) Urine Bacteria Many (>30) H (None) Ur Culture Indicated? Specimen cultured Vol Urine Centrifuged 10ml (spun) Salicylates < 1.0 (<20) mg/dL U Opiates 300ng/mL cut Negative (Negative) Ur Oxycodone Screen Negative (Negative) Urine Methadone Screen Negative (Negative) Acetaminophen < 10 (10-30) ug/mL Ur Barbiturates Screen Positive H (Negative) Phenytoin 27.3 H (10-20) ug/mL U Tricyclic Antidepress Negative (Negative) Ur Phencyclidine Scrn Negative (Negative) Ur Amphetamines Screen Negative (Negative) U Methamphetamines Scrn Negative (Negative) Ur MDMA Scrn (Ecstasy) Negative (Negative) U Benzodiazepines Scrn Positive H (Negative) Urine Cocaine Screen Negative (Negative) U Marijuana (THC) Screen Positive H (Negative) Urine Specific [place] (Normal) Ethyl Alcohol < 10 ( - 10) mg/dL Ur Creatinine (Normal) 11/08/23 Range/Units 14:48 WBC (4.5-11.0) X10^3/uL RBC (4.5-5.9) X10^6/uL Hgb (13.5-17.5) g/dL Hct (41-53) % MCV (80-100) fL MCH (26-34) PG MCHC (30-36) % RDW (11.6-14.8) % Plt Count (150-400) X10^3/uL Neut % (Auto) (50-75) % Lymph % (Auto) (25-40) % [place] % (Auto) (3-14) % Eos % (Auto) (2-4) % Baso % (Auto) (0-2) % Neut # (Auto) (7279-6734) /uL Lymph # (Auto) (5797-2183) /uL [place] # (Auto) (0-900) /uL Eos # (Auto) (0-450) /uL Baso # (Auto) (0-100) /uL PT (9.4-12.5) SECONDS INR (0.9-1.3) APTT (25.1-36.5) SECONDS Sodium (137-145) mmol/L Potassium (3.4-5.1) mmol/L Chloride (98-107) mmol/L Carbon Dioxide (22-32) mmol/L BUN (9-20) mg/dL Creatinine (0.66-1.25) mg/dL Estimated GFR (>60) mL/min BUN/Creatinine Ratio (6-22) Glucose (80-110) mg/dL Calcium (8.4-10.2) mg/dL Magnesium (1.6-2.3) mg/dL Total Bilirubin (0.2-1.3) mg/dL AST (17-59) IU/L ALT (<50) IU/L Alkaline Phosphatase (38-126) U/L Ammonia (9-30) umol/L Total Protein (6.3-8.2) g/dL Albumin (3.5-5.0) g/dL Globulin (1.7-4.1) g/dL Albumin/Globulin Ratio (1.0-2.8) Lipase (23-300) U/L TSH (0.47-4.68) uIU/mL Prolactin (3.7-17.9) ng/mL Urine Color Urine Appearance Urine pH Normal (4.5-8.0) Ur Specific [place] (1.000-1.035) Urine Protein (Negative) Urine Glucose (UA) (Negative) g/dL Urine Ketones (NEGATIVE) Urine Occult Blood (Negative) Urine Nitrate (Negative) Urine Bilirubin (NEGATIVE) Urine Urobilinogen (0.2) E.U./dL Ur Leukocyte Esterase (NEGATIVE) Urine RBC (0-5/HPF) Urine WBC (0-5/HPF) Ur Squamous Epith Cells (0-5/HPF) Urine Bacteria (None) Ur Culture Indicated? Vol Urine Centrifuged Salicylates (<20) mg/dL U Opiates 300ng/mL cut (Negative) Ur Oxycodone Screen (Negative) Urine Methadone Screen (Negative) Acetaminophen (10-30) ug/mL Ur Barbiturates Screen (Negative) Phenytoin (10-20) ug/mL U Tricyclic Antidepress (Negative) Ur Phencyclidine Scrn (Negative) Ur Amphetamines Screen (Negative) U Methamphetamines Scrn (Negative) Ur MDMA Scrn (Ecstasy) (Negative) U Benzodiazepines Scrn (Negative) Urine Cocaine Screen (Negative) U Marijuana (THC) Screen (Negative) Urine Specific [place] Normal (Normal) Ethyl Alcohol ( - 10) mg/dL Ur Creatinine Normal (Normal) Imaging Data CT scan - head: Radiologist's Impression: PROCEDURE: CT HEAD/BRAIN WO CON INDICATIONS: AMS TECHNIQUE: Noncontrast 4.5 mm thick angled axial sections acquired from the foramen magnum to the vertex, with coronal and sagittal reformats. For radiation dose reduction, the following was used: automated exposure control, adjustment of mA and/or kV according to patient size. COMPARISON: [facility], CT, CT HEAD/BRAIN WO CON, 10/03/2023, 19:22. FINDINGS: Image quality: Diagnostic. CSF spaces: Basal cisterns are patent. No extra-axial fluid collections. Ventricles are normal in size and shape. Brain: Diffuse parenchymal volume loss with expansion the CSF containing spaces. Periventricular and white matter hypodensities consistent chronic microvascular ischemic disease grossly unchanged. No midline shift. No intracranial masses or hemorrhage. [place]ne[place]-white matter interface is normal. Skull and face: Calvarium and visualized facial bones are intact, without suspicious lesions. Sinuses: Visualized sinuses and mastoids are clear. IMPRESSION: No acute intracranial pathology. Sequela of chronic microvascular ischemic disease. Extremity x-ray #1: Radiologist's Impression: PROCEDURE: XR SHOULDER LT MIN 2V INDICATIONS: known fracture with worse pain TECHNIQUE: 3 views of the shoulder were acquired. COMPARISON: [facility], CR, XR SHOULDER LT MIN 2V, 04/24/2023, 14:08. FINDINGS: Bones: Cortication multiple chronic comminuted fracture lines throughout the humeral head with foreshortening of the proximal humerus increased osseous fragments within the inferior joint space. Remote healing mid humeral fracture with cerclage wires. Visualized ribs appear intact. Soft tissues: No suspicious soft tissue calcifications. IMPRESSION: Increased cortication of numerous intra-articular osseous fragments of the comminuted left humeral head fracture. MDM Narrative Medical decision making narrative: Patient is afebrile and without leukocytosis but he was a nitrite positive urine with white blood cells and bacteria. He was given a dose of oral antibiotics here in the ER. Head CT is unremarkable. Patient is confused. He knows his name but does not know where he is or why he was here or what year it is. Social work has been involved. They contacted the patient's friend and also the home health and stated that he has had increasing erratic behavior over the past couple days. Has been potentially taking either not enough for to much of his medications. Patient is unsure as to what medications he takes. Patient has been ambulatory. Social work has contacted the DCR who stated that because he was a urinary tract infection he can not be medically cleared and they would not evaluate the patient for potential care home because of this. I did discuss the case with Dr. Azar hospitalist on-call who will admit for further evaluation and treatment. Discharge Plan Departure Patient Disposition: Admitted as Observation Clinical Impression: Urinary tract infection, Acute confusion Admit Date/Time: 11/08/23 17:29
--- NOTE | 2023-11-08 13:05 | DI.CT.S_ITS ---
PROCEDURE: CT HEAD/BRAIN WO CON INDICATIONS: AMS TECHNIQUE: Noncontrast 4.5 mm thick angled axial sections acquired from the foramen magnum to the vertex, with coronal and sagittal reformats. For radiation dose reduction, the following was used: automated exposure control, adjustment of mA and/or kV according to patient size. COMPARISON: [facility], CT, CT HEAD/BRAIN WO CON, 10/03/2023, 19:22. FINDINGS: Image quality: Diagnostic. CSF spaces: Basal cisterns are patent. No extra-axial fluid collections. Ventricles are normal in size and shape. Brain: Diffuse parenchymal volume loss with expansion the CSF containing spaces. Periventricular and white matter hypodensities consistent chronic microvascular ischemic disease grossly unchanged. No midline shift. No intracranial masses or hemorrhage. [place]-white matter interface is normal. Skull and face: Calvarium and visualized facial bones are intact, without suspicious lesions. Sinuses: Visualized sinuses and mastoids are clear. IMPRESSION: No acute intracranial pathology. Sequela of chronic microvascular ischemic disease. Dictated by: Michael Millan M.D. on 11/08/2023 at 12:41 Approved by: Michael Millan M.D. on 11/08/2023 at 12:42
--- NOTE | 2023-11-08 13:06 | DI.RAD.S_ITS ---
PROCEDURE: XR SHOULDER LT MIN 2V INDICATIONS: known fracture with worse pain TECHNIQUE: 3 views of the shoulder were acquired. COMPARISON: , CR, XR SHOULDER LT MIN 2V, 04/24/2023, 14:08. FINDINGS: Bones: Cortication multiple chronic comminuted fracture lines throughout the humeral head with foreshortening of the proximal humerus increased osseous fragments within the inferior joint space. Remote healing mid humeral fracture with cerclage wires. Visualized ribs appear intact. Soft tissues: No suspicious soft tissue calcifications. IMPRESSION: Increased cortication of numerous intra-articular osseous fragments of the comminuted left humeral head fracture. Dictated by: Michael Millan M.D. on 11/08/2023 at 12:42 Approved by: Michael Millan M.D. on 11/08/2023 at 12:50
[2023-11-08 13:17] LABS: Add Manual Diff / Slide Review NO; Basophils Absolute Auto 100 /uL (0-100); Basophils Percent Auto 1.1 % (0-2); Eosinophils Absolute Auto 200 /uL (0-450); Eosinophils Percent Auto 2.7 % (2-4); Hemoglobin 11.4 g/dL (13.5-17.5); Lymphocytes Absolute Auto 1500 /uL (1100-4500); Lymphocytes Percent Auto 26.1 % (25-40); Mean Corpuscular HGB Conc 33.7 % (30-36); Mean Corpuscular Hemoglobin 32.6 PG (26-34); Monocytes Absolute Auto 600 /uL (0-900); Monocytes Percent Auto 10.1 % (3-14); Neutrophils Absolute Auto 3400 /uL (1500-7000); Platelet Count 324 X10^3/uL (150-400); Red Blood Cell Count 3.51 X10^6/uL (4.5-5.9); Red Cell Distribution Width 14.8 % (11.6-14.8); White Blood Cell Count 5.6 X10^3/uL (4.5-11.0)
[2023-11-08 13:21] LABS: Prothrombin Time 11.5 SECONDS (9.4-12.5)
[2023-11-08 13:24] LABS: PTT Partial Thromboplastin Tim 25 SECONDS (25.1-36.5)
[2023-11-08 13:29] LABS: Acetaminophen < 10 ug/mL (10-30); Alanine Aminotransferase 15 IU/L (<50); Albumin 3.5 g/dL (3.5-5.0); Alkaline Phosphatase 108 U/L (38-126); Aspartate Aminotransferase 37 IU/L (17-59); BUN Creatinine Ratio 12.5 (6-22); Bilirubin Total 0.6 mg/dL (0.2-1.3); Blood Urea Nitrogen 8 mg/dL (9-20); Calcium 8.9 mg/dL (8.4-10.2); Carbon Dioxide 23 mmol/L (22-32); Chloride 108 mmol/L (98-107); Estimated Glomerular Filt Rate > 60 mL/min (>60); Ethanol (ETOH) < 10 mg/dL; Globulin 3.5 g/dL (1.7-4.1); Glucose 111 mg/dL (80-110); Lipase 35 U/L (23-300); Magnesium 1.7 mg/dL (1.6-2.3); Potassium 4.4 mmol/L (3.4-5.1); Salicylate < 1.0 mg/dL (<20); Sodium 138 mmol/L (137-145)
[2023-11-08 13:30] LABS: HEMOLYSIS 77 (0-50)
[2023-11-08 13:31] LABS: Phenytoin / Dilantin 27.3 ug/mL (10-20)
[2023-11-08 13:45] LABS: Prolactin 4.9 ng/mL (3.7-17.9)
[2023-11-08 14:00] LABS: Thyroid Stimulating Hormone 1.81 uIU/mL (0.47-4.68)
[2023-11-08] MEDS: THIAMINE 100 MG in SODIUM CHLORIDE 0.9% 100 ML 404 MG IV (14:10)
[2023-11-08 14:20] LABS: Ammonia (NH3) < 9 umol/L (9-30)
[2023-11-08 15:02] LABS: Appearance Urine UA CLOUDY; Bilirubin Urine UA NEGATIVE (NEGATIVE); Color Urine UA YELLOW; Glucose Urine UA NEGATIVE (Negative); Ketones Urine UA NEGATIVE (NEGATIVE); Leukocyte Esterase Urine UA 2+ (NEGATIVE); Nitrite Urine UA POSITIVE (Negative); Occult Blood Urine UA TRACE-INTACT (Negative); Protein Urine UA TRACE (Negative); Urobilinogen Urine UA 0.2 E.U./dL (0.2)
[2023-11-08 15:10] LABS: UR Morphine/Opiate cutoff 300 Negative (Negative); Ur Creatinine Normal (Normal); Ur Specific Gravity Normal (Normal); Urine Cocaine Negative (Negative); Urine Tetrahydrocannabinol Positive (Negative); Urine pH Normal (Normal)
[2023-11-08 15:11] LABS: Urine Amphetamines Negative (Negative); Urine Barbiturates Positive (Negative); Urine Benzodiazepines Positive (Negative); Urine MDMA Negative (Negative); Urine Methadone Negative (Negative); Urine Methamphetamines Negative (Negative); Urine Phencyclidine Negative (Negative)
[2023-11-08 15:12] LABS: Bacteria Urine Many (>30); Culture Indicated Urine Specimen Cultured; RBC Urine 0-1/HPF (0-5/HPF); Squamous Epithelial Cell Urine 0-1 /HPF (0-5/HPF); Urine Oxycodone Negative (Negative); Urine Tricyclic Antidepressant Negative (Negative); Urine Volume 10mL (spun); WBC Urine >100/HPF (0-5/HPF)
[2023-11-08] MEDS: cephALEXin 250 MG CAPSULE 500 MG PO (16:03)
--- NOTE | 2023-11-08 16:26 | CM.DANOTE ---
Addendum entered by RAFAEL Davis 11/08/23 17:31: Patient's community contacts: [facility] Consumer Affairs Manager - [phone] Yolanda Owen, [facility] Carpenter - [phone] [facility] - [phone] [facility] Original Note: ED CROP SUPERVISOR Discharge Plan Note: Patient is a 67yo male, resident of [place], presented to the ED after his friend found pt to be acting strangely and made statements of jumping off of 3rd floor veranda. This will be the patient's 3rd presentation in the past week since being discharged on 10/31/2023, patient was admitted in the hospital for nearly a month for exterminator helper placement coordination. Pt's Primary Care Provider is Dr. Noris Maddox MD and insurance is [facility] Medicare and Medicaid. Reviewed chart and team rounds for pt's medical status and initial discharge needs. It is identified that patient has services with [facility]. ED CROP SUPERVISOR called [facility], it is found that pt is not safe at home and there are no stable caregivers. [facility] reports that a neighbor called the [facility] nurse to notify that the patient was acting strangely and stating he should jump out the window to friend, Celine. It is reported that an APS report was placed by [facility]. ED CROP SUPERVISOR spoke with pt's friend, Joel, who brought him into the ED. Friend was able to review the events of today and stated his friend was identified to be taking his medications incorrectly (I saw him trying to take 5 pills when the bottle said 2) and trying to use his cellphone as the TV remote. Patient friend states pt is out of his dilantin and he is not due for a refill. Pt friend states pt's confusion is sudden as he was more coherent and directable on 11/04. Per friend, all weapons will be taken out of the patient's home due to the previous SI statements. ED CROP SUPERVISOR entered room to meet with patient, introduced self and role. Pt was asleep and complained of being very cold. ED CROP SUPERVISOR provided warm blanket, pt still cold. Pt barely arouse-able to continue with assessment. ED CROP SUPERVISOR returned and pt agreed to continue with assessment. Pt was confused, did not remember the events of the day, did not know who Mo is. Pt was only oriented to self. Pt not able to answer clearly regarding SI/HI assessment. ED CROP SUPERVISOR called DCR line and requested for DCR to screen pt for possible Geripsych placement. It was identified by DCR Samaria that due to pt's UTI, he is not technically medically cleared for a DCR assessment. It is advised that when pt is no longer positive for UTI and pt still not able to contract for safety, DCR can be dispatched again. Plan: Treating UTI with abx, possible admission until safe discharge plan can be arranged. ED Staff following for discharge needs. MARIMAR Belcher Discharge Planning/Care Management CM Discharge Assessment Start: 11/08/23 16:23 Freq: Status: Active Protocol: Document 11/08/23 16:23 MW (Rec: 11/08/23 16:26 MW [id number]) Discharge Planning Assessment Assigned [employer] Worker RAFAEL Giang DPOA/Assigned Designee Name Layo Correia, Friend Contact Information [phone] Advance Directives? No Advance Directives on File No History Provided By Patient,Friend,Medical Record Has Patient been admitted in last 30 Yes days? Prior Living Arrangements Apartment/Condo Comment Patient currently lives at [facility] apartments. Household Members none Type of transportation used prior to Relies on Others admit Independent with ADL's No Is patient alert and oriented? No Needs Assistance With Meal Prep,Managing Medications ,Home Chores / Shopping Caregiver for Another No DME Already Rented / Owned FWW / Walker,Cane Comment Patient is a current patient of [facility]. Comment Patient in the process of LTC Medicaid application and placement at [facility]. Discharge Plan Home with Home Health Please Provide Date Initial DC 11/08/23 Assessment Was Performed Next Review Type Continued Stay Review
[2023-11-08 17:38] LABS: COVID19 -Nasal RAPID Negative (Negative)
--- NOTE | 2023-11-08 17:47 | P.HP_ITS ---
History of Present Illness History of Present Illness Date Patient Seen: 11/08/23 Chief complaint: needs medication Narrative: From ED doctor: Patient is a 67-year-old male was brought in by EMS for evaluation of concern for medication issues. Within the past couple weeks he was discharged from this facility after spending an extended amount of time secondary to issues with long-term placement. He was eventually discharged home after the patient decided that he did not want to go to a long-term care facility and wanted to go home. He has been seen 2 prior times within the past week. One time for an esophageal food impaction that was eventually resolved on its own and discharged home. A 2nd time for potential seizure/syncope. There was concern initially that he was not taking his Dilantin appropriately. He does have home health. Concern from home health about his ability to take care of himself at home. Here in the emergency department he reports no symptoms. No urinary symptoms. He denies chest pain, shortness of breath. He denies headache or abdominal pain. Additional information: The patient is a 67-year-old male with a history of seizure disorder and severe alcohol use disorder. He was in the hospital for an extended stay for alcohol withdrawal followed by a severe sustained encephalopathy. This ultimately improved and he was able to retain his function including ambulation, activities of daily living, and eating. The patient was being prepared for a transition to an assisted living, but then ultimately decided to leave the hospital to return back to his apartment. He has been to the ER for 2 separate visits before today. He did not appear to have been using alcohol with either of these visits, and his BAL is 0 today. The patient has some degree of cognitive impairment, however today he was grossly confused and not oriented to place or time. His urine was notable for bacteria and WBCs. The patient was started on antibiotics for urinary tract infection and presumed acute septic encephalopathy. He was confused compared to his most recent baseline of when I saw him. He states he has not in his apartment anymore, meaning that he was at the hospital. He does note that he was not been taking his seizure medications because he does not have them. He also notes that his friends have not been stopping by to check on him and he has been eating very little. [facility] Medical History Cognitive deficits Chronic hyponatremia Left elbow fracture Broken neck Multiple falls Cervical spondylosis with myelopathy Marijuana dependence Osteoarthritis Memory loss Osteoarthrosis Epilepsy, unspecified, not intractable, without status epilepticus Alcohol dependence, uncomplicated Surgical History History of neck surgery History of back surgery H/O foot surgery H/O thumb surgery History of esophagogastroduodenoscopy (EGD) History of colonoscopy Family History Father Cancer Aneurysm Mother Cancer Social History marital status: unknown household members: none lives independently: Yes housing: other ([facility]) Smoking Status: Former smoker alcohol intake: current Meds Home Medications and Allergies Home Medications Medication Instructions Recorded Confirmed Type dronabinol 2.5 mg capsule 2.5 mg PO DAILY #30 caps 10/31/23 11/08/23 Rx amlodipine 5 mg tablet 5 mg PO DAILY #30 tabs 11/04/23 11/08/23 Rx phenytoin sodium extended 100 mg 500 mg (5 x 100 mg) PO BID #120 11/05/23 11/08/23 Rx capsule (Dilantin Extended) caps Allergies Allergy/AdvReac Type Severity Reaction Status Date / Time meperidine [MEPERIDINE] AdvReac Unknown Vomiting Verified 11/08/23 14:21 Review of Systems Review of Systems Narrative: All else reviewed and otherwise unremarkable except as noted in the history and physical. Exam Vital Signs (past 8 hours): - 11/08/23 12:44 11/08/23 12:45 11/08/23 12:45 Temperature Pulse Rate 71 73 Respiratory Rate Blood Pressure 126/64 Pulse Oximetry 97 Oxygen Delivery Method 11/08/23 12:57 11/08/23 13:00 11/08/23 13:00 Temperature 98.0 F Pulse Rate 72 68 Respiratory Rate 16 Blood Pressure 126/64 131/69 Pulse Oximetry 97 99 Oxygen Delivery Method Room Air Room Air 11/08/23 13:30 11/08/23 14:00 11/08/23 14:01 Temperature Pulse Rate 70 68 69 Respiratory Rate Blood Pressure Pulse Oximetry 99 99 99 Oxygen Delivery Method 11/08/23 14:01 11/08/23 14:30 11/08/23 14:31 Temperature Pulse Rate 68 67 Respiratory Rate Blood Pressure 139/66 Pulse Oximetry 99 100 Oxygen Delivery Method Room Air 11/08/23 14:31 11/08/23 15:00 11/08/23 15:30 Temperature Pulse Rate 68 69 Respiratory Rate 18 Blood Pressure 122/72 Pulse Oximetry 100 Oxygen Delivery Method Oxygen Delivery Method Room Air Narrative Exam Narrative: NAD, alert and oriented to person and place but not time, fluent speech, calm. Flat affect Normocephalic skull, EOMI, anicteric sclera, symmetric pupils. Oropharynx unremarkable, no droop. Neck supple, midline trachea, no adenopathy. Lungs clear, normal rate and effort. Heart regular, no murmur gallop or rub. Abdomen is soft, non distended and non tender. Extremities are free of edema. Skin is free of rash or lesions. Joints are not swollen or deformed. Judgment appears to be abnormal. Objective Imaging Multiple studies:: Radiologist's impression: Brain CT: No acute intracranial pathology. Sequela of chronic microvascular ischemic disease. Shoulder x-ray: Increased cortication of numerous intra-articular osseous fragments of the comminuted left humeral head fracture. Labs 11/08/23 12:55 11/08/23 12:55 Labs: Laboratory Results - last 24 hr 11/08/23 11/08/23 11/08/23 12:55 13:34 14:48 WBC 5.6 RBC 3.51 L Hgb 11.4 L Hct 34.0 L MCV 97.0 MCH 32.6 MCHC 33.7 RDW 14.8 Plt Count 324 Neut % (Auto) 60.0 Lymph % (Auto) 26.1 [place] % (Auto) 10.1 Eos % (Auto) 2.7 Baso % (Auto) 1.1 Neut # (Auto) 3400 Lymph # (Auto) 1500 [place] # (Auto) 600 Eos # (Auto) 200 Baso # (Auto) 100 PT 11.5 INR 1.0 APTT 25 L Sodium 138 Potassium 4.4 Chloride 108 H Carbon Dioxide 23 BUN 8 L Creatinine 0.64 L Estimated GFR > 60 BUN/Creatinine Ratio 12.5 Glucose 111 H Calcium 8.9 Magnesium 1.7 Total Bilirubin 0.6 AST 37 ALT 15 Alkaline Phosphatase 108 Ammonia < 9 L Total Protein 7.0 Albumin 3.5 Globulin 3.5 Albumin/Globulin Ratio 1.0 Lipase 35 TSH 1.81 Prolactin 4.9 Urine Color Yellow Urine Appearance Cloudy Urine pH 6.0 Ur Specific [place] 1.020 Urine Protein Trace H Urine Glucose (UA) Negative Urine Ketones Negative Urine Occult Blood Trace-intact Urine Nitrate Positive H Urine Bilirubin Negative Urine Urobilinogen 0.2 Ur Leukocyte Esterase 2+ H Urine RBC 0-1/hpf Urine WBC >100/hpf H Ur Squamous Epith Cells 0-1 /hpf Urine Bacteria Many (>30) H Ur Culture Indicated? Specimen cultured Vol Urine Centrifuged 10ml (spun) Salicylates < 1.0 U Opiates 300ng/mL cut Negative Ur Oxycodone Screen Negative Urine Methadone Screen Negative Acetaminophen < 10 Ur Barbiturates Screen Positive H Phenytoin 27.3 H U Tricyclic Antidepress Negative Ur Phencyclidine Scrn Negative Ur Amphetamines Screen Negative U Methamphetamines Scrn Negative Ur MDMA Scrn (Ecstasy) Negative U Benzodiazepines Scrn Positive H Urine Cocaine Screen Negative U Marijuana (THC) Screen Positive H Urine Specific [place] Ethyl Alcohol < 10 Ur Creatinine SARS-CoV-2 (PCR) 11/08/23 11/08/23 14:48 17:05 WBC RBC Hgb Hct MCV MCH MCHC RDW Plt Count Neut % (Auto) Lymph % (Auto) [place] % (Auto) Eos % (Auto) Baso % (Auto) Neut # (Auto) Lymph # (Auto) [place] # (Auto) Eos # (Auto) Baso # (Auto) PT INR APTT Sodium Potassium Chloride Carbon Dioxide BUN Creatinine Estimated GFR BUN/Creatinine Ratio Glucose Calcium Magnesium Total Bilirubin AST ALT Alkaline Phosphatase Ammonia Total Protein Albumin Globulin Albumin/Globulin Ratio Lipase TSH Prolactin Urine Color Urine Appearance Urine pH Normal Ur Specific [place] Urine Protein Urine Glucose (UA) Urine Ketones Urine Occult Blood Urine Nitrate Urine Bilirubin Urine Urobilinogen Ur Leukocyte Esterase Urine RBC Urine WBC Ur Squamous Epith Cells Urine Bacteria Ur Culture Indicated? Vol Urine Centrifuged Salicylates U Opiates 300ng/mL cut Ur Oxycodone Screen Urine Methadone Screen Acetaminophen Ur Barbiturates Screen Phenytoin U Tricyclic Antidepress Ur Phencyclidine Scrn Ur Amphetamines Screen U Methamphetamines Scrn Ur MDMA Scrn (Ecstasy) U Benzodiazepines Scrn Urine Cocaine Screen U Marijuana (THC) Screen Urine Specific [place] Normal Ethyl Alcohol Ur Creatinine Normal SARS-CoV-2 (PCR) Negative Assessment & Plan Assessment & Plan narrative: 1. Urinary tract infection, present on admission and active. 2. Septic encephalopathy, present on admission and active. 3. Alcohol use disorder which may not be currently active, stable. 4. Seizure disorder, present on admission and stable. 5. Hypertension, present on admission and stable. PLAN: -ceftriaxone 1 g daily -follow cultures. -follow up mental status. -continue chronic medications for blood pressure and seizure medications. Full resuscitation. Observation status, anticipate 1 midnight of care initially. One of his friends is his power of outside sales inspector for healthcare. Time-Based Coding :: 30 min spent with patient and on the chart (including review of chart, obtaining history, exam, reviewing outside data, placing orders, documenting exam and treatment plan, and counseling patient) on 11/07. Quality MIPS - Admit I confirm the patient?s Advance Care Plan is present, Code status is documented, Surrogate decision maker is in patient?s record [If Yes, STOP here]: Yes MIPS - Meds 'Current medications' to include all prescriptions, [id number] products, herbals, cannabis/cannabidiol products, and vitamin/mineral/dietary (nutritional) supplements. I have utilized all available resources to obtain, update, or review the patient?s current medications. [If Yes, STOP here]: Yes
[2023-11-08] MEDS: SODIUM CHLORIDE 0.45% 1,000 ML 100 ML IV (18:40)
[2023-11-08] MEDS: cefTRIAXone 1,000 MG in SODIUM CHLORIDE 0.9% 100 ML 200 MG IV (18:41)
--- NOTE | 2023-11-08 23:08 | PC.NURSE ---
1939 Received call from [facility] pharmacist regarding pt's medication Dilantin. per pharmacist current dose reported by pt/records and current order is above recommended dose. Pt confused and unable to verify, lab results showing elevated Dilantin levels. c engineer, Dr. Castro notified, orders to hold current dose and defer to primary team in AM. Will endorse to incoming shift.
[2023-11-09 04:44] VITALS: BP 134/87; PULSE 73; RESP 16; TEMP 36.2; O2SAT 97
[2023-11-09] MEDS: SODIUM CHLORIDE 0.45% 1,000 ML 100 ML IV ×2 (04:47→15:43)
--- NOTE | 2023-11-09 07:26 | PM.PN.1 ---
Subjective Subjective Interval history: 67-year-old male with a history of alcohol use disorder who was admitted with increased confusion and urinary tract infection. S: He remains confused but denies any pain. He knows he is in the hospital but can not remember the name of 1 of his 2 close friends. He denies any nausea. He did not eat breakfast and states that he was not hungry. Exam Vital Signs (past 8 hours): - 11/09/23 04:44 Temperature 97.1 F L Pulse Rate 73 Respiratory Rate 16 Blood Pressure 134/87 Pulse Oximetry 97 Oxygen Delivery Method Room Air Oxygen Flow Rate 0 Narrative Exam Narrative: NAD, alert and oriented to person and hospital. Fluent speech. He does appear to be generally confused when answering questions. Lungs are clear, normal rate and effort. Heart is regular, no murmur gallop or rub. Abdomen is soft, non distended. Extremities are free of edema. Objective Labs 11/09/23 09:05 11/08/23 12:55 Labs: Laboratory Results - last 24 hr 11/08/23 11/08/23 11/08/23 12:55 13:34 14:48 WBC 5.6 RBC 3.51 L Hgb 11.4 L Hct 34.0 L MCV 97.0 MCH 32.6 MCHC 33.7 RDW 14.8 Plt Count 324 Neut % (Auto) 60.0 Lymph % (Auto) 26.1 [place] % (Auto) 10.1 Eos % (Auto) 2.7 Baso % (Auto) 1.1 Neut # (Auto) 3400 Lymph # (Auto) 1500 [place] # (Auto) 600 Eos # (Auto) 200 Baso # (Auto) 100 PT 11.5 INR 1.0 APTT 25 L Sodium 138 Potassium 4.4 Chloride 108 H Carbon Dioxide 23 BUN 8 L Creatinine 0.64 L Estimated GFR > 60 BUN/Creatinine Ratio 12.5 Glucose 111 H Calcium 8.9 Magnesium 1.7 Total Bilirubin 0.6 AST 37 ALT 15 Alkaline Phosphatase 108 Ammonia < 9 L Total Protein 7.0 Albumin 3.5 Globulin 3.5 Albumin/Globulin Ratio 1.0 Lipase 35 TSH 1.81 Prolactin 4.9 Urine Color Yellow Urine Appearance Cloudy Urine pH 6.0 Ur Specific [place] 1.020 Urine Protein Trace H Urine Glucose (UA) Negative Urine Ketones Negative Urine Occult Blood Trace-intact Urine Nitrate Positive H Urine Bilirubin Negative Urine Urobilinogen 0.2 Ur Leukocyte Esterase 2+ H Urine RBC 0-1/hpf Urine WBC >100/hpf H Ur Squamous Epith Cells 0-1 /hpf Urine Bacteria Many (>30) H Ur Culture Indicated? Specimen cultured Vol Urine Centrifuged 10ml (spun) Salicylates < 1.0 U Opiates 300ng/mL cut Negative Ur Oxycodone Screen Negative Urine Methadone Screen Negative Acetaminophen < 10 Ur Barbiturates Screen Positive H Phenytoin 27.3 H U Tricyclic Antidepress Negative Ur Phencyclidine Scrn Negative Ur Amphetamines Screen Negative U Methamphetamines Scrn Negative Ur MDMA Scrn (Ecstasy) Negative U Benzodiazepines Scrn Positive H Urine Cocaine Screen Negative U Marijuana (THC) Screen Positive H Urine Specific [place] Ethyl Alcohol < 10 Ur Creatinine SARS-CoV-2 (PCR) 11/08/23 11/08/23 14:48 17:05 WBC RBC Hgb Hct MCV MCH MCHC RDW Plt Count Neut % (Auto) Lymph % (Auto) [place] % (Auto) Eos % (Auto) Baso % (Auto) Neut # (Auto) Lymph # (Auto) [place] # (Auto) Eos # (Auto) Baso # (Auto) PT INR APTT Sodium Potassium Chloride Carbon Dioxide BUN Creatinine Estimated GFR BUN/Creatinine Ratio Glucose Calcium Magnesium Total Bilirubin AST ALT Alkaline Phosphatase Ammonia Total Protein Albumin Globulin Albumin/Globulin Ratio Lipase TSH Prolactin Urine Color Urine Appearance Urine pH Normal Ur Specific [place] Urine Protein Urine Glucose (UA) Urine Ketones Urine Occult Blood Urine Nitrate Urine Bilirubin Urine Urobilinogen Ur Leukocyte Esterase Urine RBC Urine WBC Ur Squamous Epith Cells Urine Bacteria Ur Culture Indicated? Vol Urine Centrifuged Salicylates U Opiates 300ng/mL cut Ur Oxycodone Screen Urine Methadone Screen Acetaminophen Ur Barbiturates Screen Phenytoin U Tricyclic Antidepress Ur Phencyclidine Scrn Ur Amphetamines Screen U Methamphetamines Scrn Ur MDMA Scrn (Ecstasy) U Benzodiazepines Scrn Urine Cocaine Screen U Marijuana (THC) Screen Urine Specific [place] Normal Ethyl Alcohol Ur Creatinine Normal SARS-CoV-2 (PCR) Negative PFSH Medical History Cognitive deficits Chronic hyponatremia Left elbow fracture Broken neck Multiple falls Cervical spondylosis with myelopathy Marijuana dependence Osteoarthritis Memory loss Osteoarthrosis Epilepsy, unspecified, not intractable, without status epilepticus Alcohol dependence, uncomplicated Surgical History History of neck surgery History of back surgery H/O foot surgery H/O thumb surgery History of esophagogastroduodenoscopy (EGD) History of colonoscopy Family History Father Cancer Aneurysm Mother Cancer Social History marital status: unknown household members: none lives independently: Yes housing: other ([facility]) Smoking Status: Former smoker alcohol intake: current Assessment & Plan Assessment & Plan narrative: 1. Urinary tract infection, present on admission and active. 2. Septic encephalopathy, present on admission and active. 3. Alcohol use disorder which may not be currently active, stable. 4. Seizure disorder, present on admission and stable. 5. Hypertension, present on admission and stable. PLAN: -ceftriaxone 1 g daily -follow cultures. Prelim: GN bacilli -follow up mental status. -continue chronic medications for blood pressure and seizure medications. Full resuscitation. Inpatient status, anticipate 2 midnights of carein the hospital. One of his friends is his power of attorney lawyer for healthcare. Time-Based Coding :: [TOTAL MINUTES] spent with patient and on the chart (including review of chart, obtaining history, exam, reviewing outside data, placing orders, documenting exam and treatment plan, and counseling patient) on [DATE]. Quality VTE Deep Vein Thrombosis/Pulmonary Embolism Present on Admission: No
[2023-11-09 08:00] VITALS: BP 151/90; PULSE 75; RESP 16; TEMP 36.5; O2SAT 99
[2023-11-09 09:20] LABS: Add Manual Diff / Slide Review NO; Basophils Absolute Auto 100 /uL (0-100); Basophils Percent Auto 1.3 % (0-2); Eosinophils Absolute Auto 200 /uL (0-450); Eosinophils Percent Auto 3.8 % (2-4); Hematocrit 31.9 % (41-53); Hemoglobin 10.9 g/dL (13.5-17.5); Lymphocytes Absolute Auto 1300 /uL (1100-4500); Mean Corpuscular HGB Conc 34.2 % (30-36); Mean Corpuscular Hemoglobin 32.7 PG (26-34); Mean Corpuscular Volume 95.6 fL (80-100); Monocytes Absolute Auto 500 /uL (0-900); Monocytes Percent Auto 10.1 % (3-14); Neutrophils Absolute Auto 3000 /uL (1500-7000); Neutrophils Percent Auto 59.8 % (50-75); Platelet Count 285 X10^3/uL (150-400); Red Blood Cell Count 3.34 X10^6/uL (4.5-5.9); Red Cell Distribution Width 14.5 % (11.6-14.8); White Blood Cell Count 5.1 X10^3/uL (4.5-11.0)
[2023-11-09 10:38] LABS: BUN Creatinine Ratio 7.5 (6-22); Blood Urea Nitrogen 4 mg/dL (9-20); Carbon Dioxide 20 mmol/L (22-32); Chloride 109 mmol/L (98-107); Estimated Glomerular Filt Rate > 60 mL/min (>60); Glucose 92 mg/dL (80-110); HEMOLYSIS < 15 (0-50); Potassium 4.2 mmol/L (3.4-5.1); Sodium 134 mmol/L (137-145)
[2023-11-09] MEDS: PHENYTOIN ER 100 MG CAPSULE 300 MG PO (11:03)
[2023-11-09] MEDS: droNABinol 2.5 MG CAPSULE PO (11:03)
[2023-11-09] MEDS: AMLODIPINE 5 MG TABLET PO (11:04)
--- NOTE | 2023-11-09 13:41 | CM.SWNOTE ---
ED BUTTON TACKER Note: Per report from [place] , an APS report was made for self-neglect due to patient's confusion and SI statements. This BUTTON TACKER placed another report (Confirmation #: [id number]) for self-neglect and the statements reported by pt's friend/secondary POA, Adis Garcia, of pt's medication mismanagement, confusion, and statements of SI as indicated in this BUTTON TACKER's previous note. ED BUTTON TACKER updated patient chart with pt friend contacts (Layo and Adis Maldonado) per most recent signed Advanced Directive. Plan: Continue with LTC placement coordination with pt [facility] Amplifier Mechanic when available. MARIMAR Belcher
--- NOTE | 2023-11-09 17:06 | PM.DS.1 ---
History of Present Illness History of Present Illness Chief complaint: needs medication Narrative: From ED doctor: Patient is a 67-year-old male was brought in by EMS for evaluation of concern for medication issues. Within the past couple weeks he was discharged from this facility after spending an extended amount of time secondary to issues with long-term placement. He was eventually discharged home after the patient decided that he did not want to go to a long-term care facility and wanted to go home. He has been seen 2 prior times within the past week. One time for an esophageal food impaction that was eventually resolved on its own and discharged home. A 2nd time for potential seizure/syncope. There was concern initially that he was not taking his Dilantin appropriately. He does have home health. Concern from home health about his ability to take care of himself at home. Here in the emergency department he reports no symptoms. No urinary symptoms. He denies chest pain, shortness of breath. He denies headache or abdominal pain. Additional information: The patient is a 67-year-old male with a history of seizure disorder and severe alcohol use disorder. He was in the hospital for an extended stay for alcohol withdrawal followed by a severe sustained encephalopathy. This ultimately improved and he was able to retain his function including ambulation, activities of daily living, and eating. The patient was being prepared for a transition to an assisted living, but then ultimately decided to leave the hospital to return back to his apartment. He has been to the ER for 2 separate visits before today. He did not appear to have been using alcohol with either of these visits, and his BAL is 0 today. The patient has some degree of cognitive impairment, however today he was grossly confused and not oriented to place or time. His urine was notable for bacteria and WBCs. The patient was started on antibiotics for urinary tract infection and presumed acute septic encephalopathy. He was confused compared to his most recent baseline of when I saw him. He states he has not in his apartment anymore, meaning that he was at the hospital. He does note that he was not been taking his seizure medications because he does not have them. He also notes that his friends have not been stopping by to check on him and he has been eating very little. Discharge Providers Provider Date of admission: 11/08/23 17:29 Discharge Date: 11/09/23 Primary care physician: Noris Shipley MD Consults: 11/08/23 13:05 Consult to [facility] - Ophthalmology Technician Stat Comment: Ophthalmology Technician Consult needed for:: Unable to care for self Discharge provider: Federico Azar MD Summary Hospital Course Discharge Diagnosis: From ED doctor: Patient is a 67-year-old male was brought in by EMS for evaluation of concern for medication issues. Within the past couple weeks he was discharged from this facility after spending an extended amount of time secondary to issues with long-term placement. He was eventually discharged home after the patient decided that he did not want to go to a long-term care facility and wanted to go home. He has been seen 2 prior times within the past week. One time for an esophageal food impaction that was eventually resolved on its own and discharged home. A 2nd time for potential seizure/syncope. There was concern initially that he was not taking his Dilantin appropriately. He does have home health. Concern from home health about his ability to take care of himself at home. Here in the emergency department he reports no symptoms. No urinary symptoms. He denies chest pain, shortness of breath. He denies headache or abdominal pain. Additional information: The patient is a 67-year-old male with a history of seizure disorder and severe alcohol use disorder. He was in the hospital for an extended stay for alcohol withdrawal followed by a severe sustained encephalopathy. This ultimately improved and he was able to retain his function including ambulation, activities of daily living, and eating. The patient was being prepared for a transition to an assisted living, but then ultimately decided to leave the hospital to return back to his apartment. He has been to the ER for 2 separate visits before today. He did not appear to have been using alcohol with either of these visits, and his BAL is 0 today. The patient has some degree of cognitive impairment, however today he was grossly confused and not oriented to place or time. His urine was notable for bacteria and WBCs. The patient was started on antibiotics for urinary tract infection and presumed acute septic encephalopathy. He was confused compared to his most recent baseline of when I saw him. He states he has not in his apartment anymore, meaning that he was at the hospital. He does note that he was not been taking his seizure medications because he does not have them. He also notes that his friends have not been stopping by to check on him and he has been eating very little. Hospital Course: The patient was recently discharged after an extended stay at the hospital. He had gone home by his own choice and had to interval visits to the emergency department. He then presented on the day of admission with more confusion and was found to have some evidence of a urinary tract infection. He was started on ceftriaxone. Initially upon evaluation, he did seem more confused than his baseline. At his baseline he was oriented to person place and always states he does not know the month or year because it does not concern him anymore in his life. The patient improved overnight and cultures were pending with 100,000 CFUs of Gram-negative bacillus. The patient did have improvement of his mental status and cognition to his baseline based on my previous experience with the patient. Unfortunately he became quite agitated and stated he was going to leave the hospital as he wanted to return home. This is fairly typical for him based on past experience. The patient had the usual plan of returning home by taxi which he was done in the past. He did agree to take oral antibiotics to complete his course of treatment for his infection. The patient will leave against medical advice, and the working plan will be to contact APS tomorrow to open a case on him. The patient appears to have multiple friends who want to help him and understand his situation. Their involvement when he was actually in his home appears to be somewhat limited. Status at Discharge Cognitive/behavioral status at discharge: oriented Functional status at discharge: independent ambulation Overall status at discharge: patient is progressing back to baseline Time Spent with Patient Time spent: Greater than 30 minutes Exam Vital Signs (past 8 hours): Oxygen Delivery Method Room Air Oxygen Flow Rate 0 Narrative Exam Narrative: NAD, alert and oriented to person and place. Fluent speech. He states he was an now the month and year, but never does because he does not need to. This is the same answer he was given in the past hospital encounter when asked this question. Lungs are clear, normal rate and effort. Heart is regular, no murmur gallop or rub. Abdomen is soft, non distended. Extremities are free of edema. Objective Imaging CT scan - head: Radiologist's impression: Brain CT: No acute intracranial pathology. Labs 11/09/23 09:05 11/09/23 08:55 Labs: Laboratory Results - last 24 hr 11/08/23 11/09/23 11/09/23 17:05 08:55 09:05 WBC 5.1 RBC 3.34 L Hgb 10.9 L Hct 31.9 L MCV 95.6 MCH 32.7 MCHC 34.2 RDW 14.5 Plt Count 285 Neut % (Auto) 59.8 Lymph % (Auto) 25.0 [place] % (Auto) 10.1 Eos % (Auto) 3.8 Baso % (Auto) 1.3 Neut # (Auto) 3000 Lymph # (Auto) 1300 [place] # (Auto) 500 Eos # (Auto) 200 Baso # (Auto) 100 Sodium 134 L Potassium 4.2 Chloride 109 H Carbon Dioxide 20 L BUN 4 L Creatinine 0.53 L Estimated GFR > 60 BUN/Creatinine Ratio 7.5 Glucose 92 Calcium 9.0 SARS-CoV-2 (PCR) Negative 11/09/23 17:00 WBC RBC Hgb Hct MCV MCH MCHC RDW Plt Count Neut % (Auto) Lymph % (Auto) [place] % (Auto) Eos % (Auto) Baso % (Auto) Neut # (Auto) Lymph # (Auto) [place] # (Auto) Eos # (Auto) Baso # (Auto) Sodium Cancelled Potassium Cancelled Chloride Cancelled Carbon Dioxide Cancelled BUN Cancelled Creatinine Cancelled Estimated GFR Cancelled BUN/Creatinine Ratio Cancelled Glucose Cancelled Calcium Cancelled SARS-CoV-2 (PCR) [facility] Medical History Cognitive deficits Chronic hyponatremia Left elbow fracture Broken neck Multiple falls Cervical spondylosis with myelopathy Marijuana dependence Osteoarthritis Memory loss Osteoarthrosis Epilepsy, unspecified, not intractable, without status epilepticus Alcohol dependence, uncomplicated Surgical History History of neck surgery History of back surgery H/O foot surgery H/O thumb surgery History of esophagogastroduodenoscopy (EGD) History of colonoscopy Family History Father Cancer Aneurysm Mother Cancer Social History marital status: unknown household members: none lives independently: Yes housing: other ([facility]) Smoking Status: Former smoker alcohol intake: current Discharge Assessment & Plan Assessment and Plan Assessment: 1. Urinary tract infection, present on admission and active. 2. Septic encephalopathy, present on admission and active. 3. Alcohol use disorder which may not be currently active, stable. 4. Seizure disorder, present on admission and stable. 5. Hypertension, present on admission and stable. 6. AMA Discharge. Plan of Treatment: AMA discharge. Patient seems very close to his usual baseline of optimum function is observed in his previous encounters including his most recent hospitalization. He has a plan to return home, use the taxi he was uses, and states someone can pick up worker his antibiotics at the pharmacy. Discharge Plan Discharge Plan Patient Disposition: Home Discharge orders & Medications Prescriptions: New phenytoin sodium extended [Dilantin Extended] 100 mg Capsule 300 mg PO BID Qty: 60 2RF ciprofloxacin HCl 500 mg tablet 500 mg PO BID Qty: 14 0RF Continued amlodipine 5 mg tablet 5 mg PO DAILY Qty: 30 2RF dronabinol 2.5 mg Capsule 2.5 mg PO DAILY Qty: 30 1RF Discontinued phenytoin sodium extended [Dilantin Extended] 100 mg capsule 500 mg PO BID Qty: 120 0RF Medication counseling provided by Pharmacist: No Follow up/Referrals: Noris Shipley MD [Primary Care Provider] - Discharge Health Status Multidrug resistant organism: No MDRO Diet/Activity/Treatments Diet: Regular Skin/Wound/Dressing Care Report to your healthcare provider any signs of infection, such as:: chills, fever, night sweats and increased pain Visit Report/Discharge Packet Instructions: DI for Urinary Tract Infection (UTI), Refusal of Consent to Treatment (Against Medical Advice) Stand Alone Forms: Patient Portal/API, Stroke Signs & Symptoms Discharge Data Primary Care Provider: Noris Shipley Attending Provider: Federico Azar Admit Date/Time: 11/08/23 17:29 Quality VTE Deep Vein Thrombosis/Pulmonary Embolism Present on Admission: No MIPS - DC The patient has a history of heart transplant or Left Ventricular Assist Device (LVAD). If yes, STOP here.: No The patient has current or prior documentation of left ventricular ejection fraction (LVEF) less than or equal to 40%, or moderate or severely depressed left ventricular systolic function.: No
--- NOTE | 2023-11-09 17:12 | PC.NURSE ---
Pt became very agitated this afternoon, asking why he was being kept here and stating that he wanted to go home. physician assistant primary care attempted to talk to pt and explain why it would be in his best interest to stay in the hospital, but pt insisted on leaving. This nurse was called to the bedside to attempt to calm the pt and was unsuccessful as well. Pt wanted to talk to a crime prevention police officer, so the hospital network security administrator was called and the hospitalist was informed as well. Hospitalist came to the bedside to attempt to explain again that he had an infection and it would be best if he stayed to finished his antibiotics. Patient's friend Mariano (who had been visiting earlier in the day) was called on the phone to try to help convince patient to stay. Patient continued to insist on leaving. It was decided at this time that the patient should be allowed to leave AMA. Paperwork was retrieved, patient's IV was removed and patient was assisted to dress. Patient refused to sign the AMA paperwork, said he could take a taxi but then could not remember his address. This nurse wrote down his address from the computer while pt was assisted to call a taxi. Pt agreed to take a wheelchair down to the entrance to meet the taxi and was wheeled off the floor with all of his belongings.
--- NOTE | 2023-11-09 18:15 | CM.SWNOTE ---
ED INVESTIGATION SPECIALIST Note:
--- NOTE | 2023-11-09 18:16 | CM.SWNOTE ---
ED SCRIPT COORDINATOR Note: ED SCRIPT COORDINATOR was called to the Acute care floor by Coordinator to assist with coordinating a taxi voucher for patient. ED SCRIPT COORDINATOR discussed this with ED c software developer and it was identified that pt should not be granted a taxi voucher due to leaving AMA. ED SCRIPT COORDINATOR arrived to the floor and discussed with Coordinator and RN that a taxi voucher should not be granted at this time. ED SCRIPT COORDINATOR questioned if pt is of sound mind to make this decision, it was only discussed that patient is getting increasingly agitated and would like to leave. Pt was able to call for a taxi and was transported home, ED SCRIPT COORDINATOR followed RN as pt was transported out of the building. Patient was requesting for a seal delivery vehicle officer but was clearly not oriented to place or time. Per acute care staff, Patient could not identify his address when printed before him. ED SCRIPT COORDINATOR was notified approximately thirty minutes later that [place] PD has been dispatched to the patient's apartment complex and patient is very confused; [facility] will bring patient back to [facility] ED. It has been the opinion of this SCRIPT COORDINATOR that this patient is in need of geripsych inpatient treatment. A DCR was requested to be dispatched on 11/08/23 but since patient has a UTI, a DCR cannot assess for detainment. It has been identified by multiple contacts in the community as well as pt's POA that pt is not safe to discharge home without / supervision. Plan: Patient gravely disabled, would benefit from DCR dispatch when medically cleared from infection for geripsych treatment. MARIMAR Belcher
--- NOTE | 2023-11-26 13:58 | PC.NURSE ---
LATE NOTE: 11/08/23 ROCEPHIN COMPLETED AT 19:15
== END 2023-11-09 17:30 | disposition left against medical advice (07) | DRG 689 ==
LOC: ED 17:28 → AC 11-09 08:18
PROVIDERS: Admitting Provider Hospitalist; Emergency Provider Emergency Medicine; Family Provider Internal Medicine; PCP Family Medicine; Referring Provider Emergency Medicine; Visit Provider Hospitalist
DX: N39.0 Urinary tract infection, site not specified (principal); G93.41 Metabolic encephalopathy; G40.909 Epilepsy, unspecified, not intractable, without status epilepticus; I10 Essential (primary) hypertension; F10.90 Alcohol use, unspecified, uncomplicated; Y90.0 Blood alcohol level of less than 20 mg/100 ml; Z53.29 Procedure and treatment not carried out because of patient's decision for other reasons; Z87.891 Personal history of nicotine dependence; Z76.0 Encounter for issue of repeat prescription
CPT/HCPCS: 36415; 70450; 73030; 80048; 80053; 80185; 80305; 80320; 80329; 81001; 82140; 83690; 83735; 84146; 84443; 85025; 85610; 85730; 87077; 87086; 87186; 87635; 96365; 99281; 99285; G0378; G0480; J0696; J7050

== ENCOUNTER 2023-11-09 18:21 | Emergency (ER) | payer MEDICARE, MEDICAID, SELFPAY ==
[2023-11-08 18:13] VITALS: BMI 19.6
[2023-11-09 18:25] VITALS: PULSE 79; O2SAT 100
[2023-11-09 18:26] VITALS: BP 173/83; PULSE 79; RESP 16; TEMP 36.9; O2SAT 96; BMI 24.2
[2023-11-09 18:30] VITALS: PULSE 78; O2SAT 100
--- NOTE | 2023-11-09 18:55 | DI.RAD.S_ITS ---
PROCEDURE: XR CHEST 1V INDICATIONS: alt MSE, eval for infection TECHNIQUE: One view of the chest was acquired. COMPARISON: [facility], CR, XR CHEST 2V, 11/03/2023, 18:52. [facility], CR, XR CHEST 1V, 10/03/2023, 16:37. [facility], CR, XR CHEST 1V, 04/24/2023, 9:46. FINDINGS: Surgical changes and devices: Cervical spinal fixation hardware is present. Lungs and pleura: Lungs are clear. No pleural effusions or pneumothorax. Mediastinum: Mediastinal contours appear normal. Heart size is normal. Bones and chest wall: Chronic anemia fracture of the left proximal humerus does not appear significantly changed. Multiple subacute or chronic left-sided rib fractures. IMPRESSION: No acute cardiopulmonary abnormality is seen. Approved by: Pola Soria M.D. on 11/09/2023 at 19:29
[2023-11-09 19:00] VITALS: PULSE 75; O2SAT 100
--- NOTE | 2023-11-09 19:06 | CM.SWNOTE ---
ED DIGITAL DESIGN ENGINEER Note: Patient is a 67yo male, resident of [place], re-presented to the ED via EMS after leaving AMA from acute care floor ~30minutes earlier. Patient presented to the ED on 11/08/23 after his friend found pt to be acting strangely and made statements of jumping off of 3rd floor veranda at his apartment. This will be the patient's 4th presentation in the past week since being discharged on 10/31/2023, patient was admitted in the hospital for nearly a month for rat exterminator placement coordination. Pt's Primary Care Provider is Dr. Noris Maddox MD and insurance is [facility] Medicare and Medicaid. (Please see note on 11/08/23 to include patient leaving AMA and APS report placed for self-neglect) Per triage, pt has no recollection of the events of today. Patient not oriented to time and place. It has been the opinion of this DIGITAL DESIGN ENGINEER that this patient is in need of geripsych inpatient treatment. A DCR was requested to be dispatched on 11/08/23 but since patient has a UTI, a DCR cannot assess for detainment. It has been identified by multiple contacts in the community as well as pt's POA that pt is not safe to discharge home without 09/09 supervision. Plan: Patient gravely disabled, would benefit from DCR dispatch when medically cleared from infection for geripsych treatment. MARIMAR Belcher
--- NOTE | 2023-11-09 19:28 | PC.NURSE ---
Pt currently refusing IV/bloodwork. Pt informed on importance of blood tests and IV. Pt states he is very upset/mad.
--- NOTE | 2023-11-09 19:41 | ED_ITS ---
HPI - Altered Mental Status <Kingston Marroquin MD - Last Filed: 11/12/23 00:07> General Chief Complaint: Altered Mental Status Stated Complaint: confusion Time Seen by Provider: 11/09/23 18:55 History of Present Illness HPI narrative: 67-year-old male brought in for evaluation for confusion, left against medical advice from inpatient vences with urinary tract infection, back to his home low income housing place of living, apparently seemed confused there, 911 called, arrived by EMS for further evaluation. He is not cooperative with any workup here. He stated to me that he thought he was in the police department, then noted understanding when redirected to location in hospital setting. He denies any injury to his head face chest abdomen and pelvis. He denies sensation of feeling short of breath. He has not have flank pain. Does not feel feverish. He denies drug or alcohol use. Related Data Previous Rx's Medication Instructions Recorded dronabinol 2.5 mg capsule 2.5 mg PO DAILY #30 caps 10/31/23 amlodipine 5 mg tablet 5 mg PO DAILY #30 tabs 11/04/23 ciprofloxacin HCl 500 mg tablet 500 mg PO BID #14 tabs 11/09/23 phenytoin sodium extended 100 mg 300 mg (3 x 100 mg) PO BID #60 caps 11/09/23 capsule (Dilantin Extended) Allergies Allergy/AdvReac Type Severity Reaction Status Date / Time meperidine [MEPERIDINE] AdvReac Unknown Vomiting Verified 11/08/23 14:21 Review of Systems <Kingston Marroquin MD - Last Filed: 11/12/23 00:07> Review of Systems Narrative: As per HPI Patient History <Kingston Marroquin MD - Last Filed: 11/12/23 00:07> Medical History Cognitive deficits Chronic hyponatremia Left elbow fracture Broken neck Multiple falls Cervical spondylosis with myelopathy Marijuana dependence Osteoarthritis Memory loss Osteoarthrosis Epilepsy, unspecified, not intractable, without status epilepticus Alcohol dependence, uncomplicated Surgical History History of neck surgery History of back surgery H/O foot surgery H/O thumb surgery History of esophagogastroduodenoscopy (EGD) History of colonoscopy Family History Father Cancer Aneurysm Mother Cancer Social History marital status: unknown household members: none lives independently: Yes housing: other ([facility]) Smoking Status: Former smoker alcohol intake: current Smoking Status: Former smoker tobacco type: cigarettes alcohol intake frequency: 3 or more drinks per day Alcohol type: beer and hard liquor Substance Use Type: marijuana Exam <Kingston Marroquin MD - Last Filed: 11/12/23 00:07> Narrative Exam Narrative: GENERAL: Well-developed patient, in mild distress. HEAD: Atraumatic. Normocephalic. EYES: Pupils equal round and reactive. Extraocular motions intact. No scleral icterus. No injection or drainage. ENT: Nose without bleeding, purulent drainage. Throat without erythema, tonsillar hypertrophy or exudate. Airway patent. NECK: Trachea midline. Non tender CARDIOVASCULAR: Regular rate and rhythm without murmurs, gallops, or rubs. RESPIRATORY: Clear to auscultation. Breath sounds equal bilaterally. No wheezes, rales, or rhonchi. GASTROINTESTINAL: Abdomen soft, non-tender, nondistended. EXTREMITIES: No edema or joint tenderness. BACK: Nontender without deformity or crepitance. No flank tenderness. NEURO: Patient was oriented to name and month, not to location. Motor functions grossly nonfocal SKIN: No rash or erythema of visible areas Initial Vital Signs Initial Vital Signs: Vital Signs Pulse Rate 79 11/09/23 18:25 Pulse Oximetry 100 11/09/23 18:25 <Ottoniel Angelo DO - Last Filed: 11/18/23 07:02> Initial Vital Signs Initial Vital Signs: Vital Signs Pulse Rate 79 11/09/23 18:25 Pulse Oximetry 100 11/09/23 18:25 <Veena Oliver MD - Last Filed: 11/12/23 07:04> Initial Vital Signs Initial Vital Signs: Vital Signs Pulse Rate 79 11/09/23 18:25 Pulse Oximetry 100 11/09/23 18:25 Course <Kingston Marroquin MD - Last Filed: 11/12/23 00:07> Orders Ordered: Discontinued Medications Amlodipine Besylate (Amlodipine 5 Mg Tablet) 5 mg PO DAILY [facility] Last Admin: 11/11/23 09:05 Dose: 5 mg Documented By: PAMELA Ciprofloxacin (Ciprofloxacin 250 Mg Tablet) 500 mg PO BID [facility] Last Admin: 11/11/23 09:05 Dose: 500 mg Documented By: Admin: 11/10/23 21:28 Dose: 500 mg Documented By: TARI Diphenhydramine HCl (Diphenhydramine 50 Mg/Ml Vial) 50 mg IV NOW ONE Stop: 11/10/23 03:56 Last Admin: 11/10/23 04:00 Dose: 50 mg Documented By: Dronabinol (Dronabinol 2.5 Mg Capsule) 2.5 mg PO DAILY [facility] Last Admin: 11/11/23 09:06 Dose: 2.5 mg Documented By: PAMELA Haloperidol (Haloperidol 5 Mg/Ml Vial) 5 mg IM NOW ONE Stop: 11/10/23 04:23 Last Admin: 11/10/23 04:05 Dose: 5 mg Documented By: Sodium Chloride (Normal Saline 0.9%) 1,000 mls @ 150 mls/hr IV CONT [facility] Last Infusion: 11/10/23 04:19 Dose: Infused Documented By: Admin: 11/10/23 02:11 Dose: 150 mls/hr Documented By: Admin: 11/09/23 22:50 Dose: Not Given Documented By: Ceftriaxone Sodium 1,000 mg/ (Sodium Chloride) 100 mls @ 200 mls/hr IV NOW ONE Stop: 11/10/23 01:17 Last Infusion: 11/10/23 02:10 Dose: Infused Documented By: Admin: 11/10/23 01:36 Dose: 200 mls/hr Documented By: Lorazepam (Lorazepam 2 Mg/Ml Inj) 2 mg IV NOW ONE Stop: 11/10/23 03:56 Last Admin: 11/10/23 04:01 Dose: 2 mg Documented By: Lorazepam (Lorazepam 0.5 Mg Tablet) 1 mg PO NOW ONE Stop: 11/11/23 11:58 Last Admin: 11/11/23 12:17 Dose: Not Given Documented By: REID Lorazepam (Lorazepam 2 Mg/Ml Inj) 1 mg IV NOW ONE Stop: 11/11/23 12:10 Last Admin: 11/11/23 12:21 Dose: 1 mg Documented By: REID Lorazepam (Lorazepam 2 Mg/Ml Inj) 2 mg IV NOW ONE Stop: 11/11/23 13:13 Last Admin: 11/11/23 13:16 Dose: 2 mg Documented By: REID Lorazepam (Lorazepam 2 Mg/Ml Inj) 1 mg IV NOW ONE Stop: 11/11/23 18:34 Last Admin: 11/11/23 18:53 Dose: 1 mg Documented By: REID Phenytoin Sodium (Phenytoin Er 100 Mg Capsule) 300 mg PO BID [facility] Last Admin: 11/11/23 09:06 Dose: 300 mg Documented By: PAMELA Vital Signs Vital signs: Vital Signs - 8 hr 11/11/23 17:00 11/11/23 19:08 Temperature 97.9 F Pulse Rate 81 80 Respiratory Rate 19 16 Blood Pressure 138/70 142/78 H Pulse Oximetry 100 96 Oxygen Delivery Method Room Air Room Air <Ottoniel Angelo DO - Last Filed: 11/18/23 07:02> Orders Ordered: Discontinued Medications Amlodipine Besylate (Amlodipine 5 Mg Tablet) 5 mg PO DAILY [facility] Last Admin: 11/11/23 09:05 Dose: 5 mg Documented By: PAMELA Ciprofloxacin (Ciprofloxacin 250 Mg Tablet) 500 mg PO BID [facility] Last Admin: 11/11/23 09:05 Dose: 500 mg Documented By: Admin: 11/10/23 21:28 Dose: 500 mg Documented By: TARI Diphenhydramine HCl (Diphenhydramine 50 Mg/Ml Vial) 50 mg IV NOW ONE Stop: 11/10/23 03:56 Last Admin: 11/10/23 04:00 Dose: 50 mg Documented By: Dronabinol (Dronabinol 2.5 Mg Capsule) 2.5 mg PO DAILY [facility] Last Admin: 11/11/23 09:06 Dose: 2.5 mg Documented By: PAMELA Haloperidol (Haloperidol 5 Mg/Ml Vial) 5 mg IM NOW ONE Stop: 11/10/23 04:23 Last Admin: 11/10/23 04:05 Dose: 5 mg Documented By: Sodium Chloride (Normal Saline 0.9%) 1,000 mls @ 150 mls/hr IV CONT [facility] Last Infusion: 11/10/23 04:19 Dose: Infused Documented By: Admin: 11/10/23 02:11 Dose: 150 mls/hr Documented By: Admin: 11/09/23 22:50 Dose: Not Given Documented By: Ceftriaxone Sodium 1,000 mg/ (Sodium Chloride) 100 mls @ 200 mls/hr IV NOW ONE Stop: 11/10/23 01:17 Last Infusion: 11/10/23 02:10 Dose: Infused Documented By: Admin: 11/10/23 01:36 Dose: 200 mls/hr Documented By: Lorazepam (Lorazepam 2 Mg/Ml Inj) 2 mg IV NOW ONE Stop: 11/10/23 03:56 Last Admin: 11/10/23 04:01 Dose: 2 mg Documented By: Lorazepam (Lorazepam 0.5 Mg Tablet) 1 mg PO NOW ONE Stop: 11/11/23 11:58 Last Admin: 11/11/23 12:17 Dose: Not Given Documented By: REID Lorazepam (Lorazepam 2 Mg/Ml Inj) 1 mg IV NOW ONE Stop: 11/11/23 12:10 Last Admin: 11/11/23 12:21 Dose: 1 mg Documented By: REID Lorazepam (Lorazepam 2 Mg/Ml Inj) 2 mg IV NOW ONE Stop: 11/11/23 13:13 Last Admin: 11/11/23 13:16 Dose: 2 mg Documented By: REID Lorazepam (Lorazepam 2 Mg/Ml Inj) 1 mg IV NOW ONE Stop: 11/11/23 18:34 Last Admin: 11/11/23 18:53 Dose: 1 mg Documented By: REID Phenytoin Sodium (Phenytoin Er 100 Mg Capsule) 300 mg PO BID [facility] Last Admin: 11/11/23 09:06 Dose: 300 mg Documented By: PAMELA Vital Signs Vital signs: Vital Signs - 8 hr 11/11/23 17:00 11/11/23 19:08 Temperature 97.9 F Pulse Rate 81 80 Respiratory Rate 19 16 Blood Pressure 138/70 142/78 H Pulse Oximetry 100 96 Oxygen Delivery Method Room Air Room Air <Veena Oliver MD - Last Filed: 11/12/23 07:04> Orders Ordered: Discontinued Medications Amlodipine Besylate (Amlodipine 5 Mg Tablet) 5 mg PO DAILY [facility] Last Admin: 11/11/23 09:05 Dose: 5 mg Documented By: PAMELA Ciprofloxacin (Ciprofloxacin 250 Mg Tablet) 500 mg PO BID [facility] Last Admin: 11/11/23 09:05 Dose: 500 mg Documented By: Admin: 11/10/23 21:28 Dose: 500 mg Documented By: TARI Diphenhydramine HCl (Diphenhydramine 50 Mg/Ml Vial) 50 mg IV NOW ONE Stop: 11/10/23 03:56 Last Admin: 11/10/23 04:00 Dose: 50 mg Documented By: Dronabinol (Dronabinol 2.5 Mg Capsule) 2.5 mg PO DAILY [facility] Last Admin: 11/11/23 09:06 Dose: 2.5 mg Documented By: PAMELA Haloperidol (Haloperidol 5 Mg/Ml Vial) 5 mg IM NOW ONE Stop: 11/10/23 04:23 Last Admin: 11/10/23 04:05 Dose: 5 mg Documented By: Sodium Chloride (Normal Saline 0.9%) 1,000 mls @ 150 mls/hr IV CONT [facility] Last Infusion: 11/10/23 04:19 Dose: Infused Documented By: Admin: 11/10/23 02:11 Dose: 150 mls/hr Documented By: Admin: 11/09/23 22:50 Dose: Not Given Documented By: Ceftriaxone Sodium 1,000 mg/ (Sodium Chloride) 100 mls @ 200 mls/hr IV NOW ONE Stop: 11/10/23 01:17 Last Infusion: 11/10/23 02:10 Dose: Infused Documented By: Admin: 11/10/23 01:36 Dose: 200 mls/hr Documented By: Lorazepam (Lorazepam 2 Mg/Ml Inj) 2 mg IV NOW ONE Stop: 11/10/23 03:56 Last Admin: 11/10/23 04:01 Dose: 2 mg Documented By: Lorazepam (Lorazepam 0.5 Mg Tablet) 1 mg PO NOW ONE Stop: 11/11/23 11:58 Last Admin: 11/11/23 12:17 Dose: Not Given Documented By: REID Lorazepam (Lorazepam 2 Mg/Ml Inj) 1 mg IV NOW ONE Stop: 11/11/23 12:10 Last Admin: 11/11/23 12:21 Dose: 1 mg Documented By: REID Lorazepam (Lorazepam 2 Mg/Ml Inj) 2 mg IV NOW ONE Stop: 11/11/23 13:13 Last Admin: 11/11/23 13:16 Dose: 2 mg Documented By: REID Lorazepam (Lorazepam 2 Mg/Ml Inj) 1 mg IV NOW ONE Stop: 09/24/24 18:34 Last Admin: 11/11/23 18:53 Dose: 1 mg Documented By: REID Phenytoin Sodium (Phenytoin Er 100 Mg Capsule) 300 mg PO BID [facility] Last Admin: 11/11/23 09:06 Dose: 300 mg Documented By: PAMELA Vital Signs Vital signs: Vital Signs - 8 hr 11/11/23 17:00 11/11/23 19:08 Temperature 97.9 F Pulse Rate 81 80 Respiratory Rate 19 16 Blood Pressure 138/70 142/78 H Pulse Oximetry 100 96 Oxygen Delivery Method Room Air Room Air MDM - Altered Mental Status <Kingston Marroquin MD - Last Filed: 11/12/23 00:07> Lab Data Attestation: I reviewed the patient's lab results. Lab results narrative: Negative urinalysis. UDS positive for benzodiazepine and barbiturates 11/10/23 01:30 11/10/23 01:30 Labs: Lab Results 11/09/23 11/09/23 11/10/23 Range/Units 23:55 23:55 01:30 WBC 5.0 (4.5-11.0) X10^3/uL RBC 3.32 L (4.5-5.9) X10^6/uL Hgb 10.8 L (13.5-17.5) g/dL Hct 31.9 L (41-53) % MCV 96.1 (80-100) fL MCH 32.6 (26-34) PG MCHC 33.9 (30-36) % RDW 14.3 (11.6-14.8) % Plt Count 292 (150-400) X10^3/uL Neut % (Auto) 61.2 (50-75) % Lymph % (Auto) 22.5 L (25-40) % [place] % (Auto) 9.3 (3-14) % Eos % (Auto) 4.9 H (2-4) % Baso % (Auto) 2.1 H (0-2) % Neut # (Auto) 3000 (4455-6884) /uL Lymph # (Auto) 1100 (3542-9118) /uL [place] # (Auto) 500 (0-900) /uL Eos # (Auto) 200 (0-450) /uL Baso # (Auto) 100 (0-100) /uL PT 12.0 (9.4-12.5) SECONDS INR 1.0 (0.9-1.3) APTT 30 D (25.1-36.5) SECONDS Sodium 133 L (137-145) mmol/L Potassium 4.1 (3.4-5.1) mmol/L Chloride 108 H (98-107) mmol/L Carbon Dioxide 20 L (22-32) mmol/L BUN 4 L (9-20) mg/dL Creatinine 0.53 L (0.66-1.25) mg/dL Estimated GFR > 60 (>60) mL/min BUN/Creatinine Ratio 7.5 (6-22) Glucose 100 (80-110) mg/dL Lactate 0.8 (0.7-2.1) mmol/L Calcium 8.9 (8.4-10.2) mg/dL Total Bilirubin 0.5 (0.2-1.3) mg/dL AST 24 (17-59) IU/L ALT 12 (<50) IU/L Alkaline Phosphatase 116 (38-126) U/L Total Protein 6.4 (6.3-8.2) g/dL Albumin 3.2 L (3.5-5.0) g/dL Globulin 3.2 (1.7-4.1) g/dL Albumin/Globulin Ratio 1.0 (1.0-2.8) TSH 2.22 D (0.47-4.68) uIU/mL Prolactin 8.3 (3.7-17.9) ng/mL Urine Color Yellow Urine Appearance Clear Urine pH 6.0 TNP (4.5-8.0) Ur Specific [place] 1.010 (1.000-1.035) Urine Protein Negative (Negative) Urine Glucose (UA) Negative (Negative) g/dL Urine Ketones Negative (NEGATIVE) Urine Occult Blood Negative (Negative) Urine Nitrate Negative (Negative) Urine Bilirubin Negative (NEGATIVE) Urine Urobilinogen 0.2 (0.2) E.U./dL Ur Leukocyte Esterase 1+ H (NEGATIVE) Urine RBC None seen (0-5/HPF) Urine WBC 0-1/hpf (0-5/HPF) Ur Squamous Epith Cells 0-1 /hpf (0-5/HPF) Urine Bacteria Occasional (0-1) D (None) Ur Culture Indicated? Cult not indicated Vol Urine Centrifuged 10ml (spun) Salicylates < 1.0 (<20) mg/dL U Opiates 300ng/mL cut Negative (Negative) Ur Oxycodone Screen Negative (Negative) Urine Methadone Screen Negative (Negative) Ur Barbiturates Screen Positive H (Negative) U Tricyclic Antidepress Negative (Negative) Ur Phencyclidine Scrn Negative (Negative) Ur Amphetamines Screen Negative (Negative) U Methamphetamines Scrn Negative (Negative) Ur MDMA Scrn (Ecstasy) Negative (Negative) U Benzodiazepines Scrn Positive H (Negative) Urine Cocaine Screen Negative (Negative) U Marijuana (THC) Screen Negative (Negative) Urine Specific [place] TNP Ethyl Alcohol < 10 ( - 10) mg/dL Ur Creatinine TNP MDM Narrative Medical decision making narrative: 67-year-old male with recent hospitalization for urinary tract infection, ongoing confusion, left against medical advice on the vences earlier today, went to his home low income housing facility, seemed confused, transported for further evaluation. Possible DCR evaluation. Afebrile on triage. No obvious trauma. Sirs screen negative. CT head, labs, urinalysis were ordered but patient is refusing evaluation. DCR to be consulted 2200, case discussed with DCR, aware patient is refusing lab testing, feels that there is no placement that could be affected if patient is uncooperative with lab screening component of assessment. occupational therapy supervisor further review case, made independent communication with DCR who is apparently not coming to evaluate the patient at this time. MS consultation when available tomorrow morning. Meanwhile we will further encouraged patient to be compliant with requested blood/urine screening testing to facilitate disposition plan. 11/10/23 @0020. Patient gave urine specimen. Negative urinalysis for infectious changes. Urine tox screen positive for benzodiazepine and barbiturates. Still refuses blood testing Lab review microbiology. 11/08/2023 urine culture showed greater than 100,000 colonies Gram-negative negro, ID/sensitivity to follow up. Patient advised about diagnosis of urinary tract infection, can give IV antibiotics, IV was placed, labs were then sent, IV ceftriaxone given for his recent diagnosis of GNR UTI, ID/sens pending from 11/08/23 urine culture. 0300, patient increasingly agitated, increasingly difficult to redirect, requests police presence. PD here, DCR consult requested, screening labs unremarkable, medically cleared for anticipated ENZO. Moved from bed 6-13 due to possible flight risk. Unsafe discharge at this time. Further assessment by DCR staff pending for safe disposition plan 0345, escalating persisting agitation, non directable, [id number] evaluation by me, gave IM Haldol, IV Benadryl, IV Ativan. No mechanical restraints indicated. 0415, patient sleeping 0700, DCR consult requested, signed out to oncoming ED shift physician Dr. Angelo 0700: Received sign-out, patient currently medically cleared, pending DCR given agitation/confusion for [facility] psych 1213: Informed by nursing staff that patient had a witnessed fall, was attempting to get out of his chair to use the restroom fell backwards and hit the back of his head. No LOC, I immediately evaluated the patient placed him in C-collar for precautions, patient without any gross abnormalities, patient moving all 4 extremities spontaneously no tenderness to palpation of any bony prominences, however given fall and head strike will obtain CT head and neck to rule out any acute fracture or bleed. 1305: CT scans negative for any acute fractures cervical collar removed, had a lengthy conversation with DCR teleservices representative, she states that she has been trying to evaluate the patient ?all day? but he has not been compliant with the interview. She states that he does not respond to her questions, however patient not having any medical conditions that would cause metabolic encephalopathy. She states that given the fact that he does not participate in interview she can not officially conduct her interview therefore can not ?technically ?hold the patient, however she states that she is willing to evaluate the patient again if he is willing to participate. 1800: Patient was signed out to Dr. Marroquin, patient will need re-evaluation by DCR. 11/10/2023, 6:00 p.m., Lopez. Patient signed back out to me from Dr. Angelo. During the day today patient had DCR consultation however patient reportedly was fainting being asleep and uncooperative. Patient also apparently had ground level fall. CT head and CT cervical spine studies were performed, negative studies. Still awaiting DCR consultation for disposition plan. Follow up microbiology, 11/08/2023 urine culture had been growing Gram-negative negro, identified as Citrobacter, sensitive to nitrofurantoin and fluoroquinolone and 3rd generation cephalosporin, IV ceftriaxone given yesterday. Discharge prescription from Against Medical Advice inpatient stay with ciprofloxacin, we will use same medication regimen. Ciprofloxacin 500 mg p.o. b.i.d., 1st dose now, with recurring doses while in-house. 0700, awaiting psychiatry consult and DCR dispo plan later today, signed out to Dr Oliver 11/11/23 8an care is assumed Patient has been in the emergency department now for 38 hours. It was felt that is hospital admission would not provide a safe environment for him and he would simply leave again. It was a request for a DC our evaluation however the patient was too somnolent after being sedated due to severe agitation the night before. The initial DC are did do a bed search and it was found that the only [facility] psych facility to which the patient can be referred is currently having a COVID outbreak and not accepting any patients. Once the patient was more awake, DCR was again contacted and felt that dispatch was not appropriate as the patient has 2 power of attorneys and there are no geriatric beds available. Consult was made to Psychiatry, Dr. Lucio for additional medication adjustment. Possibility of bed availability at [facility] in [place] on 11/10 is noted. The goal is for continued long-term placement. Power of attorneys include Adis Booker primary [id number] is Layo Awaiting psychiatric evaluation this morning, patient is medications including Dilantin amlodipine dronabinol as well as continued ciprofloxacin for a urinary tract infection or ordered 12:10 reviewed with social welfare administrator. Earlier this morning beds were available however after have in the DCR come out agrees that he is detainable beds are no longer available. The DCR will do a walk away yet again today. Patient is getting slightly more agitated again. He has offered a mg of oral Ativan but declines. Mg of IV Ativan is administered. Message was left with Dr. Lucio to ask for his input with the psychiatric consults in the emergency department. That is time being patient will remain in the ER until further disposition planning can be outlined 5pm patient has been detained by the DCR. [facility] Will arrange for ambulance transportation. 11/11/2023, 6:00 p.m.Lopez. Sign-out from Dr. Oliver. Patient known to me, now awaiting transfer to inpatient psychiatric facility [facility], likely leaving within the hour. Transfer team requesting Ativan, IM dose now for transfer. <Ottoniel Angelo, DO - Last Filed: 11/18/23 07:02> Lab Data Labs: Lab Results 11/09/23 11/09/23 11/10/23 Range/Units 23:55 23:55 01:30 WBC 5.0 (4.5-11.0) X10^3/uL RBC 3.32 L (4.5-5.9) X10^6/uL Hgb 10.8 L (13.5-17.5) g/dL Hct 31.9 L (41-53) % MCV 96.1 (80-100) fL MCH 32.6 (26-34) PG MCHC 33.9 (30-36) % RDW 14.3 (11.6-14.8) % Plt Count 292 (150-400) X10^3/uL Neut % (Auto) 61.2 (50-75) % Lymph % (Auto) 22.5 L (25-40) % [place] % (Auto) 9.3 (3-14) % Eos % (Auto) 4.9 H (2-4) % Baso % (Auto) 2.1 H (0-2) % Neut # (Auto) 3000 (6008-5957) /uL Lymph # (Auto) 1100 (5808-7824) /uL [place] # (Auto) 500 (0-900) /uL Eos # (Auto) 200 (0-450) /uL Baso # (Auto) 100 (0-100) /uL PT 12.0 (9.4-12.5) SECONDS INR 1.0 (0.9-1.3) APTT 30 D (25.1-36.5) SECONDS Sodium 133 L (137-145) mmol/L Potassium 4.1 (3.4-5.1) mmol/L Chloride 108 H (98-107) mmol/L Carbon Dioxide 20 L (22-32) mmol/L BUN 4 L (9-20) mg/dL Creatinine 0.53 L (0.66-1.25) mg/dL Estimated GFR > 60 (>60) mL/min BUN/Creatinine Ratio 7.5 (6-22) Glucose 100 (80-110) mg/dL Lactate 0.8 (0.7-2.1) mmol/L Calcium 8.9 (8.4-10.2) mg/dL Total Bilirubin 0.5 (0.2-1.3) mg/dL AST 24 (17-59) IU/L ALT 12 (<50) IU/L Alkaline Phosphatase 116 (38-126) U/L Total Protein 6.4 (6.3-8.2) g/dL Albumin 3.2 L (3.5-5.0) g/dL Globulin 3.2 (1.7-4.1) g/dL Albumin/Globulin Ratio 1.0 (1.0-2.8) TSH 2.22 D (0.47-4.68) uIU/mL Prolactin 8.3 (3.7-17.9) ng/mL Urine Color Yellow Urine Appearance Clear Urine pH 6.0 TNP (4.5-8.0) Ur Specific [place] 1.010 (1.000-1.035) Urine Protein Negative (Negative) Urine Glucose (UA) Negative (Negative) g/dL Urine Ketones Negative (NEGATIVE) Urine Occult Blood Negative (Negative) Urine Nitrate Negative (Negative) Urine Bilirubin Negative (NEGATIVE) Urine Urobilinogen 0.2 (0.2) E.U./dL Ur Leukocyte Esterase 1+ H (NEGATIVE) Urine RBC None seen (0-5/HPF) Urine WBC 0-1/hpf (0-5/HPF) Ur Squamous Epith Cells 0-1 /hpf (0-5/HPF) Urine Bacteria Occasional (0-1) D (None) Ur Culture Indicated? Cult not indicated Vol Urine Centrifuged 10ml (spun) Salicylates < 1.0 (<20) mg/dL U Opiates 300ng/mL cut Negative (Negative) Ur Oxycodone Screen Negative (Negative) Urine Methadone Screen Negative (Negative) Ur Barbiturates Screen Positive H (Negative) U Tricyclic Antidepress Negative (Negative) Ur Phencyclidine Scrn Negative (Negative) Ur Amphetamines Screen Negative (Negative) U Methamphetamines Scrn Negative (Negative) Ur MDMA Scrn (Ecstasy) Negative (Negative) U Benzodiazepines Scrn Positive H (Negative) Urine Cocaine Screen Negative (Negative) U Marijuana (THC) Screen Negative (Negative) Urine Specific [place] TNP Ethyl Alcohol < 10 ( - 10) mg/dL Ur Creatinine TNP MDM Narrative Medical decision making narrative: 67-year-old male with recent hospitalization for urinary tract infection, ongoing confusion, left against medical advice on the vences earlier today, went to his home low income housing facility, seemed confused, transported for further evaluation. Possible DCR evaluation. Afebrile on triage. No obvious trauma. Sirs screen negative. CT head, labs, urinalysis were ordered but patient is refusing evaluation. DCR to be consulted 2200, case discussed with DCR, aware patient is refusing lab testing, feels that there is no placement that could be affected if patient is uncooperative with lab screening component of assessment. occupational therapy supervisor further review case, made independent communication with DCR who is apparently not coming to evaluate the patient at this time. MS consultation when available tomorrow morning. Meanwhile we will further encouraged patient to be compliant with requested blood/urine screening testing to facilitate disposition plan. 11/10/23 @0020. Patient gave urine specimen. Negative urinalysis for infectious changes. Urine tox screen positive for benzodiazepine and barbiturates. Still refuses blood testing Lab review microbiology. 11/08/2023 urine culture showed greater than 100,000 colonies Gram-negative negro, ID/sensitivity to follow up. Patient advised about diagnosis of urinary tract infection, can give IV antibiotics, IV was placed, labs were then sent, IV ceftriaxone given for his recent diagnosis of GNR UTI, ID/sens pending from 11/08/23 urine culture. 0300, patient increasingly agitated, increasingly difficult to redirect, requests police presence. PD here, DCR consult requested, screening labs unremarkable, medically cleared for anticipated ENZO. Moved from bed 6-13 due to possible flight risk. Unsafe discharge at this time. Further assessment by DCR staff pending for safe disposition plan 0345, escalating persisting agitation, non directable, [id number] evaluation by me, gave IM Haldol, IV Benadryl, IV Ativan. No mechanical restraints indicated. 0415, patient sleeping 0700, DCR consult requested, signed out to oncoming ED shift physician Dr. Angelo 0700: Received sign-out, patient currently medically cleared, pending DCR given agitation/confusion for [facility] 1213: Informed by nursing staff that patient had a witnessed fall, was attempting to get out of his chair to use the restroom fell backwards and hit the back of his head. No LOC, I immediately evaluated the patient placed him in C-collar for precautions, patient without any gross abnormalities, patient moving all 4 extremities spontaneously no tenderness to palpation of any bony prominences, however given fall and head strike will obtain CT head and neck to rule out any acute fracture or bleed. 1305: CT scans negative for any acute fractures cervical collar removed, had a lengthy conversation with DCR teleservices representative, she states that she has been trying to evaluate the patient ?all day? but he has not been compliant with the interview. She states that he does not respond to her questions, however patient not having any medical conditions that would cause metabolic encephalopathy. She states that given the fact that he does not participate in interview she can not officially conduct her interview therefore can not ?technically ?hold the patient, however she states that she is willing to evaluate the patient again if he is willing to participate. 1800: Patient was signed out to Dr. Marroquin, patient will need re-evaluation by DCR. 11/10/2023, 6:00 p.m., Lopez. Patient signed back out to me from Dr. Angelo. During the day today patient had DCR consultation however patient reportedly was fainting being asleep and uncooperative. Patient also apparently had ground level fall. CT head and CT cervical spine studies were performed, negative studies. Still awaiting DCR consultation for disposition plan. Follow up microbiology, 11/08/2023 urine culture had been growing Gram-negative negro, identified as Citrobacter, sensitive to nitrofurantoin and fluoroquinolone and 3rd generation cephalosporin, IV ceftriaxone given yesterday. Discharge prescription from [facility] stay with ciprofloxacin, we will use same medication regimen. Ciprofloxacin 500 mg p.o. b.i.d., 1st dose now, with recurring doses while in-house. 0700, awaiting psychiatry consult and DCR dispo plan later today, signed out to Dr Oliver 11/11/23 8an care is assumed Patient has been in the emergency department now for 38 hours. It was felt that is hospital admission would not provide a safe environment for him and he would simply leave again. It was a request for a DC our evaluation however the patient was too somnolent after being sedated due to severe agitation the night before. The initial DC are did do a bed search and it was found that the only [facility] facility to which the patient can be referred is currently having a COVID outbreak and not accepting any patients. Once the patient was more awake, DCR was again contacted and felt that dispatch was not appropriate as the patient has 2 power of attorneys and there are no geriatric beds available. Consult was made to Psychiatry, Dr. Lucio for additional medication adjustment. Possibility of bed availability at [facility] in [place] on 11/10 is noted. The goal is for continued long-term placement. Power of attorneys include Adis Booker primary [id number] is Layo Awaiting psychiatric evaluation this morning, patient is medications including Dilantin amlodipine dronabinol as well as continued ciprofloxacin for a urinary tract infection or ordered <Veena Oliver MD - Last Filed: 11/12/23 07:04> Lab Data Labs: Lab Results 11/09/23 11/09/23 11/10/23 Range/Units 23:55 23:55 01:30 WBC 5.0 (4.5-11.0) X10^3/uL RBC 3.32 L (4.5-5.9) X10^6/uL Hgb 10.8 L (13.5-17.5) g/dL Hct 31.9 L (41-53) % MCV 96.1 (80-100) fL MCH 32.6 (26-34) PG MCHC 33.9 (30-36) % RDW 14.3 (11.6-14.8) % Plt Count 292 (150-400) X10^3/uL Neut % (Auto) 61.2 (50-75) % Lymph % (Auto) 22.5 L (25-40) % [place] % (Auto) 9.3 (3-14) % Eos % (Auto) 4.9 H (2-4) % Baso % (Auto) 2.1 H (0-2) % Neut # (Auto) 3000 (1983-1223) /uL Lymph # (Auto) 1100 (4293-0807) /uL [place] # (Auto) 500 (0-900) /uL Eos # (Auto) 200 (0-450) /uL Baso # (Auto) 100 (0-100) /uL PT 12.0 (9.4-12.5) SECONDS INR 1.0 (0.9-1.3) APTT 30 D (25.1-36.5) SECONDS Sodium 133 L (137-145) mmol/L Potassium 4.1 (3.4-5.1) mmol/L Chloride 108 H (98-107) mmol/L Carbon Dioxide 20 L (22-32) mmol/L BUN 4 L (9-20) mg/dL Creatinine 0.53 L (0.66-1.25) mg/dL Estimated GFR > 60 (>60) mL/min BUN/Creatinine Ratio 7.5 (6-22) Glucose 100 (80-110) mg/dL Lactate 0.8 (0.7-2.1) mmol/L Calcium 8.9 (8.4-10.2) mg/dL Total Bilirubin 0.5 (0.2-1.3) mg/dL AST 24 (17-59) IU/L ALT 12 (<50) IU/L Alkaline Phosphatase 116 (38-126) U/L Total Protein 6.4 (6.3-8.2) g/dL Albumin 3.2 L (3.5-5.0) g/dL Globulin 3.2 (1.7-4.1) g/dL Albumin/Globulin Ratio 1.0 (1.0-2.8) TSH 2.22 D (0.47-4.68) uIU/mL Prolactin 8.3 (3.7-17.9) ng/mL Urine Color Yellow Urine Appearance Clear Urine pH 6.0 TNP (4.5-8.0) Ur Specific [place] 1.010 (1.000-1.035) Urine Protein Negative (Negative) Urine Glucose (UA) Negative (Negative) g/dL Urine Ketones Negative (NEGATIVE) Urine Occult Blood Negative (Negative) Urine Nitrate Negative (Negative) Urine Bilirubin Negative (NEGATIVE) Urine Urobilinogen 0.2 (0.2) E.U./dL Ur Leukocyte Esterase 1+ H (NEGATIVE) Urine RBC None seen (0-5/HPF) Urine WBC 0-1/hpf (0-5/HPF) Ur Squamous Epith Cells 0-1 /hpf (0-5/HPF) Urine Bacteria Occasional (0-1) D (None) Ur Culture Indicated? Cult not indicated Vol Urine Centrifuged 10ml (spun) Salicylates < 1.0 (<20) mg/dL U Opiates 300ng/mL cut Negative (Negative) Ur Oxycodone Screen Negative (Negative) Urine Methadone Screen Negative (Negative) Ur Barbiturates Screen Positive H (Negative) U Tricyclic Antidepress Negative (Negative) Ur Phencyclidine Scrn Negative (Negative) Ur Amphetamines Screen Negative (Negative) U Methamphetamines Scrn Negative (Negative) Ur MDMA Scrn (Ecstasy) Negative (Negative) U Benzodiazepines Scrn Positive H (Negative) Urine Cocaine Screen Negative (Negative) U Marijuana (THC) Screen Negative (Negative) Urine Specific [place] TNP Ethyl Alcohol < 10 ( - 10) mg/dL Ur Creatinine TNP MDM Narrative Medical decision making narrative: 67-year-old male with recent hospitalization for urinary tract infection, ongoing confusion, left against medical advice on the vences earlier today, went to his home low income housing facility, seemed confused, transported for further evaluation. Possible DCR evaluation. Afebrile on triage. No obvious trauma. Sirs screen negative. CT head, labs, urinalysis were ordered but patient is refusing evaluation. DCR to be consulted 2200, case discussed with DCR, aware patient is refusing lab testing, feels that there is no placement that could be affected if patient is uncooperative with lab screening component of assessment. occupational therapy supervisor further review case, made independent communication with DCR who is apparently not coming to evaluate the patient at this time. MS consultation when available tomorrow morning. Meanwhile we will further encouraged patient to be compliant with requested blood/urine screening testing to facilitate disposition plan. 11/10/23 @0020. Patient gave urine specimen. Negative urinalysis for infectious changes. Urine tox screen positive for benzodiazepine and barbiturates. Still refuses blood testing Lab review microbiology. 11/08/2023 urine culture showed greater than 100,000 colonies Gram-negative negro, ID/sensitivity to follow up. Patient advised about diagnosis of urinary tract infection, can give IV antibiotics, IV was placed, labs were then sent, IV ceftriaxone given for his recent diagnosis of GNR UTI, ID/sens pending from 11/08/23 urine culture. 0300, patient increasingly agitated, increasingly difficult to redirect, requests police presence. PD here, DCR consult requested, screening labs unremarkable, medically cleared for anticipated ENZO. Moved from bed 6-13 due to possible flight risk. Unsafe discharge at this time. Further assessment by DCR staff pending for safe disposition plan 0345, escalating persisting agitation, non directable, [id number] evaluation by me, gave SOLE Kraus, IV Benadryl, IV Ativan. No mechanical restraints indicated. 0415, patient sleeping 0700, DCR consult requested, signed out to oncoming ED shift physician Dr. Angelo 0700: Received sign-out, patient currently medically cleared, pending DCR given agitation/confusion for [facility] 1213: Informed by nursing staff that patient had a witnessed fall, was attempting to get out of his chair to use the restroom fell backwards and hit the back of his head. No LOC, I immediately evaluated the patient placed him in C-collar for precautions, patient without any gross abnormalities, patient moving all 4 extremities spontaneously no tenderness to palpation of any bony prominences, however given fall and head strike will obtain CT head and neck to rule out any acute fracture or bleed. 1305: CT scans negative for any acute fractures cervical collar removed, had a lengthy conversation with DCR teleservices representative, she states that she has been trying to evaluate the patient ?all day? but he has not been compliant with the interview. She states that he does not respond to her questions, however patient not having any medical conditions that would cause metabolic encephalopathy. She states that given the fact that he does not participate in interview she can not officially conduct her interview therefore can not ?technically ?hold the patient, however she states that she is willing to evaluate the patient again if he is willing to participate. 1800: Patient was signed out to Dr. Marroquin, patient will need re-evaluation by DCR. 11/10/2023, 6:00 p.m., Lopez. Patient signed back out to me from Dr. Angelo. During the day today patient had DCR consultation however patient reportedly was fainting being asleep and uncooperative. Patient also apparently had ground level fall. CT head and CT cervical spine studies were performed, negative studies. Still awaiting DCR consultation for disposition plan. Follow up microbiology, 11/08/2023 urine culture had been growing Gram-negative negro, identified as Citrobacter, sensitive to nitrofurantoin and fluoroquinolone and 3rd generation cephalosporin, IV ceftriaxone given yesterday. Discharge prescription from [facility] stay with ciprofloxacin, we will use same medication regimen. Ciprofloxacin 500 mg p.o. b.i.d., 1st dose now, with recurring doses while in-house. 0700, awaiting psychiatry consult and DCR dispo plan later today, signed out to Dr Oliver 11/11/23 8an care is assumed Patient has been in the emergency department now for 38 hours. It was felt that is hospital admission would not provide a safe environment for him and he would simply leave again. It was a request for a DC our evaluation however the patient was too somnolent after being sedated due to severe agitation the night before. The initial DC are did do a bed search and it was found that the only [facility] facility to which the patient can be referred is currently having a COVID outbreak and not accepting any patients. Once the patient was more awake, DCR was again contacted and felt that dispatch was not appropriate as the patient has 2 power of attorneys and there are no geriatric beds available. Consult was made to Psychiatry, Dr. Lucio for additional medication adjustment. Possibility of bed availability at [facility] in [place] on 11/10 is noted. The goal is for continued long-term placement. Power of attorneys include Adis Booker primary [id number] is Layo Awaiting psychiatric evaluation this morning, patient is medications including Dilantin amlodipine dronabinol as well as continued ciprofloxacin for a urinary tract infection or ordered 12:10 reviewed with social welfare administrator. Earlier this morning beds were available however after have in the DCR come out agrees that he is detainable beds are no longer available. The DCR will do a walk away yet again today. Patient is getting slightly more agitated again. He has offered a mg of oral Ativan but declines. Mg of IV Ativan is administered. Message was left with Dr. Lucio to ask for his input with the psychiatric consults in the emergency department. That is time being patient will remain in the ER until further disposition planning can be outlined 5pm patient has been detained by the DCR. It is going to be admitted to multi care facility. Will arrange for ambulance transportation. Critical Care Time <Kingston Marroquin MD - Last Filed: 11/12/23 00:07> Critical Care Time Critical Care Time: Yes Total Critical Care Time: 35 Attestation: The high probability of a clinically significant, sudden or life threatening deterioration of the [psychosocial, psychiatric, metabolic, cardiopulmonary, abdominopelvic, genitourinary, neurologic] system(s) required my full and direct attention, intervention and personal management. The aggregate critical care time was [35] minutes. This time is in addition to time spent performing reported procedures but includes the following: [x] Data Review and interpretation [x] Patient assessment and monitoring of vital signs [x] Documentation [x] Medication orders and management Discharge Plan Departure Patient Disposition: Xfer Psychiatric Hosp Clinical Impression: Confusion, Agitation Urinary tract infection Qualifiers: Urinary tract infection type: acute cystitis Hematuria presence: with hematuria Qualified Code(s): N30.01 - Acute cystitis with hematuria Prescriptions: No Action amlodipine 5 mg tablet 5 mg PO DAILY Qty: 30 2RF phenytoin sodium extended [Dilantin Extended] 100 mg Capsule 300 mg PO BID Qty: 60 2RF ciprofloxacin HCl 500 mg tablet 500 mg PO BID Qty: 14 0RF dronabinol 2.5 mg Capsule 2.5 mg PO DAILY Qty: 30 1RF Referrals: Miscellaneous,DoctorMD [Non-Staff] -
--- NOTE | 2023-11-09 21:27 | PC.NURSE ---
Pt states he is very frustrated he is back in the hospital and he has a distrust in us (hospital staff). Pt states he does not want IV/care/food/etc. Pt instructed we need to make sure he does not still have a UTI and other infections. Pt does not seem to comprehend the need for medical care or reasons for being in the hospital. Pt endorses frustration with his friends/family.
--- NOTE | 2023-11-09 22:16 | PC.NURSE ---
Bedside assessment completed see urogenital-male. Pt is confused on how and why he arrived at this facility. Refusing bloodwork and urine
--- NOTE | 2023-11-09 22:20 | PC.NURSE ---
Pt recently a inpatient here at [facility]. Was being treated for a Urinary Tract infection then left AMA. However, pt states that he is homeless, and has no family. No people on the street that he is close with to help him remember his medications. Pt is confused about why he is here in the ER. Advised pt that the Police found him wandering around and they brought him in for evaluation of Altered Mental Status.
[2023-11-10] VITALS (7 sets, daily range): BP systolic 146–159; BP diastolic 73–90; PULSE 72–84; RESP 14–22; TEMP 36.2–36.9; O2SAT 96–99
--- NOTE | 2023-11-10 00:01 | PC.NURSE ---
Pt uses call light appropriately to use restroom, needs assistance to walk to bathroom. One person. Pt denies pain. Obtained urine same via hat at this time. Pt still declines blood draw.
[2023-11-10 00:06] LABS: Appearance Urine UA CLEAR; Bilirubin Urine UA NEGATIVE (NEGATIVE); Color Urine UA YELLOW; Glucose Urine UA NEGATIVE (Negative); Ketones Urine UA NEGATIVE (NEGATIVE); Leukocyte Esterase Urine UA 1+ (NEGATIVE); Nitrite Urine UA NEGATIVE (Negative); Occult Blood Urine UA NEGATIVE (Negative); Protein Urine UA NEGATIVE (Negative); Urobilinogen Urine UA 0.2 E.U./dL (0.2)
[2023-11-10 00:15] LABS: Bacteria Urine Occasional (0-1); Culture Indicated Urine Cult Not Indicated; RBC Urine None Seen (0-5/HPF); Squamous Epithelial Cell Urine 0-1 /HPF (0-5/HPF); Urine Amphetamines Negative (Negative); Urine Cocaine Negative (Negative); Urine Methamphetamines Negative (Negative); Urine Opiates Negative (Negative); Urine THC Negative (Negative); Urine Volume 10mL (spun); WBC Urine 0-1/HPF (0-5/HPF)
[2023-11-10 00:16] LABS: Urine Barbiturates Positive (Negative); Urine Benzodiazepines Positive (Negative); Urine MDMA Negative (Negative); Urine Methadone Negative (Negative); Urine Oxycodone Negative (Negative); Urine Phencyclidine Negative (Negative); Urine Tricyclic Antidepressant Negative (Negative)
[2023-11-10] MEDS: cefTRIAXone 1,000 MG in SODIUM CHLORIDE 0.9% 100 ML 200 MG IV (01:36)
[2023-11-10 01:49] LABS: Add Manual Diff / Slide Review NO; Basophils Absolute Auto 100 /uL (0-100); Basophils Percent Auto 2.1 % (0-2); Eosinophils Absolute Auto 200 /uL (0-450); Eosinophils Percent Auto 4.9 % (2-4); Hematocrit 31.9 % (41-53); Hemoglobin 10.8 g/dL (13.5-17.5); Lymphocytes Absolute Auto 1100 /uL (1100-4500); Lymphocytes Percent Auto 22.5 % (25-40); Mean Corpuscular HGB Conc 33.9 % (30-36); Mean Corpuscular Hemoglobin 32.6 PG (26-34); Mean Corpuscular Volume 96.1 fL (80-100); Monocytes Absolute Auto 500 /uL (0-900); Monocytes Percent Auto 9.3 % (3-14); Neutrophils Absolute Auto 3000 /uL (1500-7000); Neutrophils Percent Auto 61.2 % (50-75); Platelet Count 292 X10^3/uL (150-400); Red Blood Cell Count 3.32 X10^6/uL (4.5-5.9); Red Cell Distribution Width 14.3 % (11.6-14.8)
[2023-11-10 01:52] LABS: PTT Partial Thromboplastin Tim 30 SECONDS (25.1-36.5)
[2023-11-10 02:03] LABS: Lactate (Lactic Acid) 0.8 mmol/L (0.7-2.1)
[2023-11-10 02:05] LABS: Alanine Aminotransferase 12 IU/L (<50); Albumin 3.2 g/dL (3.5-5.0); Alkaline Phosphatase 116 U/L (38-126); Aspartate Aminotransferase 24 IU/L (17-59); BUN Creatinine Ratio 7.5 (6-22); Bilirubin Total 0.5 mg/dL (0.2-1.3); Blood Urea Nitrogen 4 mg/dL (9-20); Calcium 8.9 mg/dL (8.4-10.2); Carbon Dioxide 20 mmol/L (22-32); Chloride 108 mmol/L (98-107); Estimated Glomerular Filt Rate > 60 mL/min (>60); Ethanol (ETOH) < 10 mg/dL; Globulin 3.2 g/dL (1.7-4.1); Glucose 100 mg/dL (80-110); HEMOLYSIS < 15 (0-50); Potassium 4.1 mmol/L (3.4-5.1); Salicylate < 1.0 mg/dL (<20); Sodium 133 mmol/L (137-145); Total Protein 6.4 g/dL (6.3-8.2)
[2023-11-10] MEDS: SODIUM CHLORIDE 0.9% 1,000 ML 150 ML IV (02:11)
[2023-11-10 02:23] LABS: Prolactin 8.3 ng/mL (3.7-17.9)
[2023-11-10 02:37] LABS: Thyroid Stimulating Hormone 2.22 uIU/mL (0.47-4.68)
--- NOTE | 2023-11-10 03:16 | PC.NURSE ---
Call made to pt friend Mariano (secondary contact) in pts chart. This was done per pt request. Mariano, states that he is not sure what has happened with Gwendolyn but he has been progressively getting worse with his behavior. Mariano states that he came to pick him up from hospital on 11/09/23 after pt decided to leave against medical advise. Mariano states that Gwendolyn needs to get help unsure what kind but for sure a mental health evaluation. He states that Gwendolyn is a [place] and should be able to be seen at the [facility] in [place]. Advised Mariano that if the social contact worker has questions that I would have them call him on phone number on file. Mariano is agreeable to speak to anyone that can help his friend, since he has his own health issues and can not do as much as he would like too.
--- NOTE | 2023-11-10 03:35 | PC.NURSE ---
Pt dressing in room and threatening to leave to go to the police department. Pt's agitation increasing. Pt dressed and left room. Attempted multiple times to get pt back to his room. Pt was uncooperative and threatening to leave hospital. Pt wanting to talk to the police. Police department called. Arrived and attempted to orient patient back to room. Pt was not cooperating and was moved to room 13. Medicated for agitation by Lula, YE. Street clothes removed and placed in safety scrubs. Pt placed on mattress on floor. Warm blanket provided for comfort. Pt appears to be sleeping and resting comfortably. One to one observation maintained.
[2023-11-10] MEDS: diphenhydrAMINE 50 MG/ML VIAL IV (04:00)
[2023-11-10] MEDS: LORazepam 2 MG/ML INJ IV (04:01)
--- NOTE | 2023-11-10 04:03 | PC.NURSE ---
This COURT CRIER was called to be a 1:1 with pt, around [address] CRIER with YE Cotton, YE Villarreal, [facility] Lisa and security police officer Jonathan went into RM 13 to administer medications. Pt's clothing and beginnings removed from room, pt placed in green paper scrubs. Pt provided warm blanket and pillow. Pt laying on mattress on floor, eyes closed.
[2023-11-10] MEDS: HALOPERIDOL 5 MG/ML VIAL IM (04:05)
--- NOTE | 2023-11-10 04:13 | PC.WOUNDPHOT ---
Pt was on his call light in room 6, I entered the room to see what the pt was needing and asked me do you work for the government and why am I being interrogated by you as well as why am I being held here. I want to go to the police station and make a report against everyone for holding me against my will. YE Cotton entered the room as well and he asked her the same questions as well. YE Cotton and I expressed that we are not holding him against his will and that I am not here to interrogate him. pt was demanding that we call the police department to have a police liaison officer come here to talk to him. YE Cotton called the non emergent dispatch at 0328 and explained the situation to dispatch about requesting PD. At this time I was told to call DCR back to have them re-dispatched due to pt escalting and being verbal with staff and trying to leave the facility. DCR was dispatched at 0335. While on the phone with DCR, PD arrives to attempt to talk to the pt. pt was uncooperative with staff and PD. YE Cotton decided at this point it would be best for the pt to go to room 13. PD walks pt to the room with staff and at this point the pt is resisting with PD and backup was called to assist. Pt then was uncooperative again with PD and spit on the officers. Door to 13 was closed at this time for our safety. Pt then was pounding on the door and screaming for help even after being told to stop screaming and hitting. Pt then attempted to take parts off of the stretcher to hit the door with the parts. At this point YE Vasques and I went into the room to remove the stretcher for pt and our safety. YE Cotton, YE Clemente, YE Vasques, Joshua Stoll, Security Castillo, and I entered the room to put a mattress on the floor, switch the pt into paper scrubs as well as give the pt medication. Pt was yelling the whole time for help as well as resisting staff. Pt belongings were labeled and put in a belonging bag. YE Cotton and Bryn sandoval as well as Dr. Marroquin.
--- NOTE | 2023-11-10 04:24 | PC.NURSE ---
0314 - Pt requests this nurse to call friend Mariano at [phone]. However, pt then states that Mariano is in on the conspiracy. 0328 - pt requests this nurse to call 911 due to being held here against his will. 0335 - [place] Police department arrives to assist with increased aggressive behavior. 0345 - [place] police completed assistance to get pt into room 13. At this time staff have prepared to give medications, place in green disposable scrubs, and remove all pt belongings. 0400 - Medications administered via IV and IM.
--- NOTE | 2023-11-10 04:39 | PC.NURSE ---
Dr. Marroquin requesting DCR to be dispatched to determine a disposition plan as well as geriatric psych placement. I called DCR around 2200 requesting for DCR to be dispatched. KASSIDY Gamboa called back and spoke with Dr. Marroquin regarding the pt. KASSIDY Gamboa did not come in at this time to see the pt. Reasoning being that no placement could happen at this time due to pt refusing any medical workup and since we cannot medically clear the pt there is nothing the DCR can do at this time. If we were able to get any labs or urine form the pt, to let DCR know and they will come in. I faxed what we had so far from the visit as well as the previous to them at 2222. I also faxed over the lab and urine results that we were able to obtain. The results were faxed over at 0040. Previous note explains pt escalation and at this time (334), DCR was re-dispatched. KASSIDY Gamboa called at 0417 and explained to me that they received the dispatch at 0335 but they do their shift change at 0500 so he is unable to come in at this time and that it will get passed onto the day shift DCR. YE May and Bryn and Dr. Marroquin notified.
--- NOTE | 2023-11-10 09:13 | PC.NURSE ---
DCR at bedside, pt sleeping. RN woke pt to obtain BP, pt cooperative. Pt then asssited from matress on floor to recliner chair with help of another RN. Pt answering yes and no questions but falling asleep intermittently. Pt resting calmy in recliner shair. Fluids and warm blankets offered.
--- NOTE | 2023-11-10 12:11 | DI.CT.S_ITS ---
PROCEDURE: CT HEAD/BRAIN WO CON INDICATIONS: trauma / fall TECHNIQUE: Noncontrast 4.5 mm thick angled axial sections acquired from the foramen magnum to the vertex, with coronal and sagittal reformats. For radiation dose reduction, the following was used: automated exposure control, adjustment of mA and/or kV according to patient size. COMPARISON: [facility], CT, CT HEAD/BRAIN WO CON, 11/08/2023, 13:11. FINDINGS: Image quality: Diagnostic. CSF spaces: Basal cisterns are patent. No extra-axial fluid collections. The ventricles are symmetric in size and shape. Brain: No intracranial bleeds or masses. There is cerebral volume loss for age, with resultant ventricular and sulcal prominence. There are periventricular and deep white matter chronic small vessel ischemic changes. There is intracranial internal carotid artery atherosclerosis. Skull and face: Calvarium and visualized facial bones appear intact, without suspicious lesions. Sinuses: Visualized sinuses and mastoids are clear. IMPRESSION: No acute intracranial pathology. Dictated by: Gregory Wise M.D. on 11/10/2023 at 13:17 Approved by: Gregory Wise M.D. on 11/10/2023 at 13:19
--- NOTE | 2023-11-10 12:11 | DI.CT.S_ITS ---
PROCEDURE: CT CERVICAL SPINE WO CON INDICATIONS: trauma / fall TECHNIQUE: Noncontrast 3 mm thick sections acquired from the skull base to the T4 level. Sagittal and coronal reformats were then constructed. For radiation dose reduction, the following was used: automated exposure control, adjustment of mA and/or kV according to patient size. COMPARISON: [facility], CT, CT CERVICAL SPINE WO CON, 01/07/2022, 11:05. FINDINGS: Image quality: Excellent. Bones: No acute fractures or dislocations. Stable appearance of C5 through C7 ACDF and C6 corpectomy. Stable oblique orientation of the corpectomy with slight extension into the spinal canal superiorly. Separation of the anterior ACDF plate from the anterior vertebral body at C5 is stable. Redemonstration of degenerative changes. Visualized superior ribs are intact. Soft tissues: Prevertebral soft tissues are normal in thickness. No paravertebral hematomas. No apical pneumothoraces. IMPRESSION: No displaced fracture or traumatic subluxation. Stable appearance of C5 through C7 ACDF and C6 corpectomy with oblique orientation of the corpectomy component, as described above. Dictated by: Gregory Wise M.D. on 11/10/2023 at 13:19 Approved by: Gregory Wise M.D. on 11/10/2023 at 13:26
--- NOTE | 2023-11-10 12:15 | PC.NURSE ---
Patient was attempting to get out of recliner, and fell out landing on right shoulder and hitting head on floor. Provider to bedside for evaluation and new orders placed.
--- NOTE | 2023-11-10 15:12 | PC.NURSE ---
Patient will briefly wake up when prompted and will occasionally give single word answers but falls back to sleep quickly. 1:1 sitter continues.
--- NOTE | 2023-11-10 15:32 | PC.NURSE ---
Gave keys to Adis Garcia to make sure patients home is secured and to check his mail for him. Person is listed under patients contacts and is known to me to be part of patients care.
--- NOTE | 2023-11-10 19:17 | CM.DANOTE ---
Addendum entered by RAFAEL Davis 11/10/23 20:22: ED RESTAURANT DISTRICT MANAGER left a voice message with [facility] Pressurised Container Filler, Yolanda Owen, to update on patient case and request to assist with jail care placement. MARIMAR Belcher Original Note: ED RESTAURANT DISTRICT MANAGER DCP Continued: Reviewed EMR and team rounds for pt?s medical status. Per EMR, pt became increasingly agitated overnight and chemical restraints were deployed. Patient was medically cleared for DCR dispatch. At beginning of this RESTAURANT DISTRICT MANAGER's shift, KASSIDY Cabrera was dispatched to complete an interview for detainment. It was reported that pt was too somnolent to participate. Multiple staff members were attempting to engage with patient including this RESTAURANT DISTRICT MANAGER, patient was not arousable, could not keep eyes open or continue conversation. KASSIDY Cabrera attempted several times for interview. It was reported by KASSIDY Cabrera that an initial bed search was done and it was found that the only [facility] patient can be referred to is currently not accepting any new patients due to a COVID outbreak at their facility. KASSIDY Cabrera provided with a copy of patient's HC AD with identified POAs. ED RESTAURANT DISTRICT MANAGER spoke with KASSIDY Cabrera regarding possible discharge plans for patient. ED RESTAURANT DISTRICT MANAGER discussed with pt's Secondary POA, Adis Booker, other means of obtaining psychiatric evaluation for patient. POA explains he is not capable of assisting patient at discharge and he will discuss this with pt's primary POA, Layo. ED RESTAURANT DISTRICT MANAGER called [facility] dispatch and requested DCR to be dispatched as pt is now more awake this evening (this was at 1915). KASSIDY Lujan called this RESTAURANT DISTRICT MANAGER and discussed at length that DCR dispatch is not appropriate at this time as patient has 2 POAs and there are no geriatric beds available. ED RESTAURANT DISTRICT MANAGER discussed above discussion with KASSIDY Lujan with ED RN and administrative operations coordinator. ED RESTAURANT DISTRICT MANAGER requested Psychiatry consult for further assessment, medication adjustment? ED RESTAURANT DISTRICT MANAGER called [facility] for possible older adult psych placement, it was reported that there might be availability tomorrow, 11/10 and to send a packet for review if still needed. Plan: Psychiatry consult pending, hopeful for continued jail care placement coordination with pt POAs and [facility] technology program manager. ED Staff will continue to follow for coordination of discharge plans. MARIMAR Belcher Community Contacts: Sameer [facility] Computerized Table Cutter - [phone] Yolanda Brayden, [facility] Pressurised Container Filler - [phone] DCR Deborah - [phone] Discharge Planning/Care Management CM Discharge Assessment Start: 11/10/23 19:12 Freq: Status: Active Protocol: Document 11/10/23 19:12 MW (Rec: 11/10/23 19:15 MW [id number]) Discharge Planning Assessment Assigned Clinical Team Manager RAFAEL Giang DPOA/Assigned Designee Name Layo Correia, Friend Contact Information [phone] Advance Directives? Yes Advance Directives on File No History Provided By Patient,Friend,Medical Record Prior Living Arrangements Apartment/Condo Comment Patient currently lives at [facility] apartments. Household Members none Type of transporation used prior to Relies on Others admit Independent with ADL's No Is patient alert and oriented? No Needs Assistance With Bathing,Eating,Meal Prep, Managing Medications,Home Chores / Shopping Caregiver for Another No DME Already Rented / Owned FWW / Walker,Cane Comment Patient was recently a patient of [facility]. Comment Patient in the process of LTC Medicaid application and placement at [facility]. Discharge Plan Psychiatric Facility Referrals Initiated Other Additional Comment No preference obtained by patient. Would benefit from geripsych inpatient treatment before LTC placement. Please Provide Date Initial DC 11/10/23 Assessment Was Performed Next Review Type Continued Stay Review ED Psychiatric Symptoms Assessment Start: 11/10/23 04:13 Freq: Q2H Status: Active Protocol: Document 11/10/23 03:35 JR (Rec: 11/10/23 04:23 JR [id number]) Psychiatric Symptoms Assessment Symptoms/Complaint Paranoia/agitation Duration Constant Improves With Medication Associated Psychiatric Symptoms Delusions Level of Observation Continuous Precautions Safety precautions initiated, Pt moved to different room Room placement ligature mitigated room Safety Interventions Patient belongings removed from room,Constant observation ,Visitor belongings secured, pockets checked and educated on process,Gurney removed from room,Explanation of process given to patient,Pt placed in hospital safety attire, Mattress placed on floor Level of Consciousness Awake,Combative,Disoriented, Inappropriate Patient Orientation Name Patient Behavior/Mood Aggressive,Confused,Fearful, Impulsive,Restless,Suspicious, Uncooperative Ability to Follow Directions Poor Patient Cognition Impaired Yes Affect Description Angry,Anxious,Fearful, Suspicious Patient Appearance Disheveled Hallucination Type None Delusion Description Paranoid Ideation Thought Process: Perseveration Depressive Symptoms Increased Anxiety,Increased Irritability Major Depressive Episode No Feelings of Hopelessness No Suicidal Ideation None Suicide Plan No Plan Homicidal Ideation None Nausea/Vomiting None
[2023-11-10] MEDS: CIPROFLOXACIN 250 MG TABLET 500 MG PO (21:28)
[2023-11-11 01:19] VITALS: BP 137/79; PULSE 78; RESP 18; TEMP 37.4; O2SAT 100
[2023-11-11 09:04] VITALS: BP 123/75; PULSE 87; RESP 18; TEMP 36.9; O2SAT 97
[2023-11-11] MEDS: AMLODIPINE 5 MG TABLET PO (09:05)
[2023-11-11] MEDS: CIPROFLOXACIN 250 MG TABLET 500 MG PO (09:05)
[2023-11-11] MEDS: PHENYTOIN ER 100 MG CAPSULE 300 MG PO (09:06)
[2023-11-11] MEDS: droNABinol 2.5 MG CAPSULE PO (09:06)
--- NOTE | 2023-11-11 09:52 | PC.NURSE ---
Pt more awake this am, ate 75% of breakfast, ambulated with walker to bathroom. Had a small BM and brushed teeth. Pt answering questions appropriately. [facility] intake spoke with pt about voluntary placement. RN the spoke with wil after pt's conversation and was told pt is not a candidate for voluntary placement. Dr. Oliver updated and instructed RN to reach out to DCR to have pt re-evaluated. RN spoke with DCR Deborah and overnight note faxed to her. DCR ETA [id number]. Will monitor pt safety. 1:1 sitter at bedside
[2023-11-11] MEDS: LORazepam 2 MG/ML INJ 1 MG IV ×2 (12:21→18:53)
[2023-11-11] MEDS: LORazepam 2 MG/ML INJ IV (13:16)
--- NOTE | 2023-11-11 13:20 | PC.NURSE ---
Pt pulling at IV and getting very agitated saying I won't give up; get me out of here. Pt states that if it requires staff holding him down thats what it will take. Pt educated and attention redirected numerous times. aware.
[2023-11-11 14:00] VITALS: PULSE 84; RESP 16; O2SAT 99
[2023-11-11 14:15] VITALS: PULSE 85; RESP 16; O2SAT 99
[2023-11-11 17:00] VITALS: BP 138/70; PULSE 81; RESP 19; O2SAT 100
--- NOTE | 2023-11-11 17:53 | CM.SWNOTE ---
ED PRODUCTION CONTROL PEGBOARD CLERK Note Patient continues to board in ED, upon this PRODUCTION CONTROL PEGBOARD CLERK's arrival KASSIDY Cabrera arrives and evaluates patient. Patient continues to present as confused, patient states he does not know why he is here, requests to leave, tries to leave and declines taking his medication. It is the opinion of this PRODUCTION CONTROL PEGBOARD CLERK that patient is not safe to return to home due concern for patient's grave disability, patient has presented to ED several times in the last 11 days after discharge from acute care and patient's friends and neighbors have reported concern for patient's safety and ability to care for self. Geropsych Bed search: [facility]- denied due to lack of hx. [facility] states they can review patient, clinicals and POA paperwork was faxed. [facility] - does not accept patient's out of [facility] - this PRODUCTION CONTROL PEGBOARD CLERK and DCR attempt to seek placement at [facility] but it is reported that they have no beds and may have beds in a few days. PRODUCTION CONTROL PEGBOARD CLERK requests Psych consult and reviews patient with Psychiatrist Dr. Lucio. It is undetermined when Dr. Lucio or his colleague will be able to see patient in ED. PRODUCTION CONTROL PEGBOARD CLERK calls Community Caramel Cutter Hand Donozzie Moreno and it is reported that his APS report was screened out because patient has a [facility] keycase assembler. Don states he has not been in contact with keycase assembler since Friday. PRODUCTION CONTROL PEGBOARD CLERK calls John with [facility] regarding patient and leaves VM requesting return call. PRODUCTION CONTROL PEGBOARD CLERK calls patient's [facility] keycase assembler Yolanda regarding patient and patient's situation and need for LTC, it is reported that patient needs to spend $2,000 of expenses to qualify for Medicaid. He is not financially eligible for services as he is over resourced by approximately $2,000. If the facility is willing to accept him, he could start out as private pay and should be eligible for services after paying the $2,000. A new assessment is not needed for this to occur. PRODUCTION CONTROL PEGBOARD CLERK discusses that the DPOA may need support regarding their responsibilities and assisting patient in spending this money to get patient connected with LTC and Medicaid services. PRODUCTION CONTROL PEGBOARD CLERK identifies that patient missed his PCP appt today, PRODUCTION CONTROL PEGBOARD CLERK calls clinic and reports to PCP regarding patient's decline and presentations to this ED and the hospital. PRODUCTION CONTROL PEGBOARD CLERK calls the [facility] and it is reported that patient is not service connected through the [facility] and would not be able to receives assisted out of home benefits through the [facility] and it is reported that there is a long waitlist for [facility] in home care. It is reported that patient has Step daughter named Chitra who resides in [place] (Ph. #[phone]) and a friend named Rohit (Ph. # [phone]) listed as his contacts through the [facility]. [facility] geriatric psych unit reports that they can accept patient as [facility] with DPOA ppwk. DCR detains patient due to concern for grave disability. Accepting provider Dr. Prado, intake Melissa. It is reported that patient can arrive any time tonight. This PRODUCTION CONTROL PEGBOARD CLERK informs patient's secondary DPOA Adis Maldonado of patient's placement at in person when he visits patient, and explains patient's need to spend $2,000 to get connected with LTC and Medicaid coverage. PRODUCTION CONTROL PEGBOARD CLERK explains that this is something that patient is in need of assistance for as patient is not able to make safe decisions for himself at this time, Mariano does not indicate complete understanding of this and states he will talk to Layo DRIVER. [facility] sets up S transport, [place] ETA 1830. DCR serves patient with [facility] court documents. Plan: patient to transfer [facility] via BLS for [facility] Ger[facility] Psych placement. MELITA RothSW
--- NOTE | 2023-11-11 18:44 | PC.NURSE ---
Patient assisted to bathroom with gait belt and walker, declined use of urinal. Able to void in toilet. Currently back in [facility] resting. Refused lunch and dinner. Refused oral care and toothbrushing offered twice. Continue with safety checks.
[2023-11-11 19:08] VITALS: BP 142/78; PULSE 80; RESP 16; TEMP 36.6; O2SAT 96
--- NOTE | 2023-11-13 14:15 | CM.DPC ---
SERGIO received a call from pt's JAYME Vasques stating he had tried to call [facility] to follow up on pt's placement there on 11/11/23 from the ED but was told pt was not there. SERGIO provided a different number for [facility] to Layo and he will follow up with them via phone and help with ongoing coordination. RAFAEL Sepulveda
== END 2023-11-11 19:10 ==
PROVIDERS: Emergency Provider Emergency Medicine; Family Provider Internal Medicine; PCP Family Medicine
DX: N30.01 Acute cystitis with hematuria (principal); R41.0 Disorientation, unspecified; R45.1 Restlessness and agitation; G93.41 Metabolic encephalopathy; G40.909 Epilepsy, unspecified, not intractable, without status epilepticus; I10 Essential (primary) hypertension; F10.90 Alcohol use, unspecified, uncomplicated; Y90.0 Blood alcohol level of less than 20 mg/100 ml; Z53.29 Procedure and treatment not carried out because of patient's decision for other reasons; Z87.891 Personal history of nicotine dependence; Z11.52 Encounter for screening for COVID-19
CPT/HCPCS: 36415; 70450; 71045; 72125; 73030; 80048; 80053; 80185; 80305; 80320; 80329; 81001; 82140; 82962; 83605; 83690; 83735; 84146; 84443; 85025; 85610; 85730; 87077; 87086; 87186; 87635; 96361; 96365; 96367; 96372; 96375; 96376; 99285; G0378; G0480; J0696; J1200; J1630; J2060; J7050

== ENCOUNTER 2023-11-30 23:35 | Observation (INO) | payer MEDICARE, MEDICAID, SELFPAY ==
[2023-11-08 18:13] VITALS: BMI 19.6
[2023-11-30 23:38] VITALS: PULSE 107; RESP 23; O2SAT 99
[2023-11-30 23:39] VITALS: BP 108/56; PULSE 102; RESP 21; O2SAT 100
--- NOTE | 2023-11-30 23:42 | EKG_ITS ---
[place] [id number] [place] [id number] Test Date: 2023-12-01 Pat Name: Shine Arthur Department: [facility] Room: 209 Gender: Male Development Educator: WILIAM : 1955 Requested By: Order Number: [id number] Reading MD: Ottoniel Eduardo Measurements Intervals [place] Rate: 104 P: 39 [place]: 162 QRS: 27 QRSD: 80 T: 78 QT: 366 QTc: 481 Interpretive Statements Sinus tachycardia Anteroseptal infarct , age undetermined Electronically Signed On 12-03-2023 17:43:57 PDT by Ottoniel Eduardo
--- NOTE | 2023-11-30 23:42 | DI.RAD.S_ITS ---
PROCEDURE: XR CHEST 1V INDICATIONS: short of breath TECHNIQUE: One view of the chest was acquired. COMPARISON: [facility], CR, XR CHEST 1V, 11/09/2023, 18:59. [facility], CR, XR CHEST 2V, 11/03/2023, 18:52. [facility], CR, XR CHEST 1V, 10/03/2023, 16:37. FINDINGS: Surgical changes and devices: Partially identified cervical fusion hardware. Lungs and pleura: Lungs are clear. No pleural effusions or pneumothorax. Mediastinum: Mediastinal contours appear normal. Heart size is normal. Bones and chest wall: Re-identified ununited left proximal humeral fracture. Multiple minimally displaced left-sided rib fractures. Diffuse osseous demineralization. Right distal clavicular heterotopic ossification, which may be secondary to a prior fracture. IMPRESSION: No acute cardiothoracic process. Dictated by: Lewis Nunn M.D. on 12/01/2023 at 0:37 Approved by: Lewis Nunn M.D. on 12/01/2023 at 0:39
--- NOTE | 2023-11-30 23:48 | ED.SOB ---
HPI - SOB/Dyspnea General Chief Complaint: Shortness of Breath/Dyspnea Stated Complaint: SOB Time Seen by Provider: 11/30/23 23:41 History of Present Illness HPI Narrative: Patient 67-year-old male history of seizure disorder severe alcohol use disorder has had extended hospital stay for alcohol withdrawal and encephalopathy, lives independently has been to our facility a number of times with an extended hospital stay presents today with sudden onset of shortness of breath. He reports that he has had increased swelling in his lower extremities he is unable to put on his shoes. He suddenly has shortness of breath with evening requiring 911. He was given albuterol nebulizer treatment EMS but had minimal improvement. He is not hypoxic or having conversational dyspnea but is overall a poor historian. He is also complaining of left arm pain which he feels that it is tight or swollen. He did fracture this arm recently after a seizure and fall. On November 08 he was detained by the [facility] and transferred to a long-term care facility but released in the last 2 days. He has been drinking [place]. Related Data Previous Rx's Medication Instructions Recorded dronabinol 2.5 mg capsule 2.5 mg PO DAILY #30 caps 10/31/23 amlodipine 5 mg tablet 5 mg PO DAILY #30 tabs 11/04/23 ciprofloxacin HCl 500 mg tablet 500 mg PO BID #14 tabs 11/09/23 phenytoin sodium extended 100 mg 300 mg (3 x 100 mg) PO BID #60 caps 11/09/23 capsule (Dilantin Extended) Allergies Allergy/AdvReac Type Severity Reaction Status Date / Time meperidine [MEPERIDINE] AdvReac Unknown Vomiting Verified 11/08/23 14:21 Patient History Medical History Cognitive deficits Chronic hyponatremia Left elbow fracture Broken neck Multiple falls Cervical spondylosis with myelopathy Marijuana dependence Osteoarthritis Memory loss Osteoarthrosis Epilepsy, unspecified, not intractable, without status epilepticus Alcohol dependence, uncomplicated Surgical History History of neck surgery History of back surgery H/O foot surgery H/O thumb surgery History of esophagogastroduodenoscopy (EGD) History of colonoscopy Family History Father Cancer Aneurysm Mother Cancer Social History marital status: unknown household members: none lives independently: Yes housing: other ([facility]) Smoking Status: Former smoker alcohol intake: current Smoking Status: Former smoker tobacco type: cigarettes alcohol intake frequency: 3 or more drinks per day Alcohol type: beer and hard liquor Substance Use Type: marijuana Exam Initial Vital Signs Initial Vital Signs: Vital Signs Pulse Rate 107 H 11/30/23 23:38 Respiratory Rate 23 11/30/23 23:38 Pulse Oximetry 99 11/30/23 23:38 GENERAL: Alert chronically ill 67-year-old male and in no acute distress. HEENT: Head atraumatic,EOMI, pupils reactive, face symmetric, moist mucous membranes CARDIOVASCULAR: Regular rate and rhythm without murmurs, rubs or gallops. RESPIRATORY: Breath sounds equal bilaterally, no wheezes rales or rhonchi. ABDOMEN: Soft, nontender. Normoactive bowel sounds all 4 quadrants. No guarding or rebound. EXTREMITIES: Normal range of motion, no clubbing. Bilateral +2 pitting edema. 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 Cranial nerves II through XII grossly intact. SKIN: Warm, dry, no laceration, no petechiae, no rashes or lesions. Course Orders Ordered: ED Orders 11/30/23 23:38 Complete Blood Count AUTO DIFF Stat Comprehensive Metabolic Panel Stat Lipase Stat NT-proBNP (BNP-Adult 18+) Stat PTT Partial Thromboplastin Eduar Stat Prothrombin Time INR Stat Troponin & CK Cardiac Panel Stat 11/30/23 23:42 XR chest 1V Stat EKG-12 Lead Stat 12/01/23 01:09 D Dimer Stat 12/01/23 01:32 CT angio chest PE protocol Stat 12/01/23 02:55 Trop I [Troponin I] Stat 12/01/23 03:35 Respiratory Panel (Film Array) Stat Acetaminophen (Acetaminophen 325 Mg Tablet) 650 mg PO Q6H PRN PRN Reason: Fever/Mild Pain (1-3) Enoxaparin Sodium (Enoxaparin 40 Mg/0.4 Ml Syringe) 40 mg SUBCUT DAILY [facility] Naloxone HCl (Naloxone 0.4 Mg/Ml Vial) 0.2 mg IV Q2MIN PRN PRN Reason: Opiate Reversal Phenytoin Sodium (Phenytoin Er 100 Mg Capsule) 300 mg PO BID BELKIS Discontinued Medications Furosemide (Furosemide 40 Mg/4 Ml Vial) 20 mg IV NOW ONE Stop: 12/01/23 00:23 Last Admin: 12/01/23 00:33 Dose: 20 mg Documented By: TARI Vital Signs Vital signs: Vital Signs - 8 hr 11/30/23 23:38 11/30/23 23:39 11/30/23 23:39 Temperature Pulse Rate 107 H 102 H Respiratory Rate 23 21 Blood Pressure 108/56 L Pulse Oximetry 99 100 Oxygen Delivery Method 11/30/23 23:49 12/01/23 00:00 12/01/23 00:00 Temperature 98.7 F Pulse Rate 102 H 102 H Respiratory Rate 23 21 Blood Pressure 108/56 L 107/58 L Pulse Oximetry 98 97 Oxygen Delivery Method Room Air Room Air 12/01/23 00:30 12/01/23 00:30 12/01/23 00:35 Temperature Pulse Rate 97 H 97 H Respiratory Rate 16 22 Blood Pressure 96/51 L Pulse Oximetry 97 97 Oxygen Delivery Method 12/01/23 00:35 12/01/23 00:39 12/01/23 00:39 Temperature Pulse Rate 99 H Respiratory Rate 21 Blood Pressure 92/51 L 121/58 L Pulse Oximetry 98 Oxygen Delivery Method 12/01/23 00:45 12/01/23 00:45 12/01/23 01:00 Temperature Pulse Rate 96 H 97 H Respiratory Rate 16 18 Blood Pressure 101/56 L Pulse Oximetry 98 97 Oxygen Delivery Method Room Air 12/01/23 01:00 12/01/23 01:15 12/01/23 01:15 Temperature Pulse Rate 93 H Respiratory Rate 16 Blood Pressure 108/58 L 93/52 L Pulse Oximetry 100 Oxygen Delivery Method Room Air 12/01/23 01:15 12/01/23 01:20 12/01/23 01:20 Temperature Pulse Rate 94 H Respiratory Rate 15 Blood Pressure 93/52 L 95/52 L Pulse Oximetry 94 Oxygen Delivery Method Room Air 12/01/23 01:30 12/01/23 01:30 12/01/23 01:45 Temperature Pulse Rate 93 H Respiratory Rate 19 Blood Pressure 99/56 L 95/53 L Pulse Oximetry 93 Oxygen Delivery Method 12/01/23 01:45 12/01/23 02:15 12/01/23 02:15 Temperature Pulse Rate 91 H 91 H Respiratory Rate 17 19 Blood Pressure 92/52 L Pulse Oximetry 93 99 Oxygen Delivery Method 12/01/23 02:30 12/01/23 02:31 12/01/23 02:31 Temperature Pulse Rate 88 88 Respiratory Rate 16 16 Blood Pressure 91/50 L Pulse Oximetry 99 99 Oxygen Delivery Method Room Air Room Air 12/01/23 02:45 12/01/23 02:45 12/01/23 03:00 Temperature Pulse Rate 89 87 Respiratory Rate 16 14 Blood Pressure 99/58 L Pulse Oximetry 98 97 Oxygen Delivery Method 12/01/23 03:00 12/01/23 03:15 12/01/23 03:15 Temperature Pulse Rate 86 Respiratory Rate 14 Blood Pressure 98/53 L 94/55 L Pulse Oximetry 96 Oxygen Delivery Method 12/01/23 03:30 12/01/23 03:30 12/01/23 03:31 Temperature Pulse Rate 87 Respiratory Rate 18 Blood Pressure 93/50 L 95/51 L Pulse Oximetry 98 Oxygen Delivery Method 12/01/23 03:31 12/01/23 03:38 12/01/23 03:38 Temperature Pulse Rate 90 90 Respiratory Rate 19 20 Blood Pressure 118/59 L Pulse Oximetry 99 99 Oxygen Delivery Method 12/01/23 03:45 12/01/23 03:45 Temperature Pulse Rate 86 Respiratory Rate 15 Blood Pressure 94/55 L Pulse Oximetry 97 Oxygen Delivery Method MDM - SOB/Dyspnea Lab Data 11/30/23 23:38 11/30/23 23:38 Labs: Lab Results 11/30/23 11/30/23 12/01/23 Range/Units 23:35 23:38 02:55 WBC 7.2 (4.5-11.0) X10^3/uL RBC 3.20 L (4.5-5.9) X10^6/uL Hgb 9.9 L (13.5-17.5) g/dL Hct 29.8 L (41-53) % MCV 93.1 (80-100) fL MCH 31.0 (26-34) PG MCHC 33.3 (30-36) % RDW 14.3 (11.6-14.8) % Plt Count 290 (150-400) X10^3/uL Neut % (Auto) 51.9 (50-75) % Lymph % (Auto) 31.3 (25-40) % [place] % (Auto) 11.9 (3-14) % Eos % (Auto) 4.1 H (2-4) % Baso % (Auto) 0.8 (0-2) % Neut # (Auto) 3700 (9649-9727) /uL Lymph # (Auto) 2300 (4731-7872) /uL [place] # (Auto) 900 (0-900) /uL Eos # (Auto) 300 (0-450) /uL Baso # (Auto) 100 (0-100) /uL PT 12.4 (9.4-12.5) SECONDS INR 1.1 (0.9-1.3) APTT 34 (25.1-36.5) SECONDS D-Dimer 1164 H (<500) ng/ml Sodium 133 L (137-145) mmol/L Potassium 3.8 (3.4-5.1) mmol/L Chloride 103 (98-107) mmol/L Carbon Dioxide 24 (22-32) mmol/L BUN 11 (9-20) mg/dL Creatinine 0.75 (0.66-1.25) mg/dL Estimated GFR > 60 (>60) mL/min BUN/Creatinine Ratio 14.7 (6-22) Glucose 107 (80-110) mg/dL Calcium 8.7 (8.4-10.2) mg/dL Total Bilirubin 0.2 (0.2-1.3) mg/dL AST 21 (17-59) IU/L ALT 14 (<50) IU/L Alkaline Phosphatase 150 H (38-126) U/L Total Creatine Kinase 38 L (55-170) U/L Troponin I 0.026 0.038 H (0.01-0.034) ng/mL NT-Pro-B Natriuret Pep 1100 H (<125) pg/mL Total Protein 6.5 (6.3-8.2) g/dL Albumin 3.1 L (3.5-5.0) g/dL Globulin 3.4 (1.7-4.1) g/dL Albumin/Globulin Ratio 0.9 L (1.0-2.8) Lipase 87 (23-300) U/L ECG Data Prior ECG tracings: available for review Interpretation: Sinus rhythm rate 104 CO interval 162 QRS 80 QTC 481 Q-waves noted anterior septal leads similar to prior 10/04/23 MDM Narrative Medical decision making narrative: MDM CC: Shortness of breath Complicating co-morbidities: Alcoholism with recent stay at long-term facility many hospitalizations Corroborating data: EMS Medical records reviewed: Latest ED visit November 08, ultimately DCR Echo 10/04/2023 EF 65-70% Differential considered: CHF exacerbation viral infection pneumonia CVA alcohol withdrawal Exam documented above, pertinent findings include: Patient appears fluid overloaded on exam he is bilateral lower extremity pitting edema acute shortness of breath with some rales no significant conversational dyspnea or hypoxia Lab Test results independently reviewed as above. Pertinent findings: BNP 1100, Troponin 0.026 repeat 0.038 WBC 7.2 hemoglobin 9.9/hematocrit 29.8 stable from prior previously in October he was 10.8/31.9, platelets 290 CMP sodium 133 potassium 3.8 chloride 103 carbon dioxide 24 BUN 11 creatinine 0.75 glucose 107 Bili 0.2 AST 21 ALT 14 alk-phos 150 Independently reviewed EKG as above sinus rhythm without ischemia Imaging studies independently reviewed: CT angio no pulmonary embolism aortic dissection or aneurysm consolidation within bilateral lower lobes atelectasis versus pulmonary infiltrates trace bilateral pleural effusions Chest XR-persistent nonunion left humeral head fracture, minimal displaced left rib fractures multiple no acute cardiothoracic process Consultations: Dr. Curtis accepts patient Treatments: Lasix 20 mg Re-evaluations: Patient has urinated multiple times blood pressure decreased he continues to have a systolic less than 100 which is abnormal for him. Discussion: 67-year-old male multiple social issues presenting today with acute onset shortness of breath. He did have some rales bilaterally did not have any improvement with the EMS nebulizer treatment. He is found have an elevated BNP which is new from prior he had an echo couple months ago which children normal EF. However on exam he has bilateral lower extremity edema and reports that he can not even put on his shoes do not fit. He is afebrile no leukocytosis not having significant infection symptoms. However he is an overall difficult historian. Really complaining of like some left arm weakness but he has this ongoing non malunion left humeral fracture. Consider pulmonary embolism with recent hospitalization and fracture with multiple ribs D-dimer was found to be elevated so CT angio was done. Does not show pulmonary embolism but does show some consolidation in the bilateral lobes. Patient's blood pressure is much lower than what it has been previously. Previously blood pressure is 120-130 systolic. Today his systolic initially was 108 however it decreased into the 90s and has stayed there. This was after Lasix 20 mg he has urinated a handful of times. Patient re-evaluated he is overall unsteady on his feet looks a little shaky. Not sure if hypotension secondary to Lasix or medication. I do not think he is septic is not from infection. He maintains a map greater than 65 no need for vasopressors Attempted ambulation trial. Unsteady on his feet shaking Discharge Plan Departure Patient Disposition: Admitted as Observation Clinical Impression: CHF (congestive heart failure) Admit Date/Time: 12/01/23 03:55 Admit Provider: Alexander Gupta
[2023-11-30 23:49] VITALS: BP 108/56; PULSE 102; RESP 23; TEMP 37.1; O2SAT 98; BMI 23.2
[2023-11-30 23:55] LABS: Add Manual Diff / Slide Review NO; Basophils Absolute Auto 100 /uL (0-100); Basophils Percent Auto 0.8 % (0-2); Eosinophils Absolute Auto 300 /uL (0-450); Eosinophils Percent Auto 4.1 % (2-4); Hematocrit 29.8 % (41-53); Hemoglobin 9.9 g/dL (13.5-17.5); INR 1.1 (0.9-1.3); Lymphocytes Absolute Auto 2300 /uL (1100-4500); Lymphocytes Percent Auto 31.3 % (25-40); Mean Corpuscular HGB Conc 33.3 % (30-36); Mean Corpuscular Volume 93.1 fL (80-100); Monocytes Absolute Auto 900 /uL (0-900); Monocytes Percent Auto 11.9 % (3-14); Neutrophils Absolute Auto 3700 /uL (1500-7000); Neutrophils Percent Auto 51.9 % (50-75); Platelet Count 290 X10^3/uL (150-400); Prothrombin Time 12.4 SECONDS (9.4-12.5); Red Cell Distribution Width 14.3 % (11.6-14.8); White Blood Cell Count 7.2 X10^3/uL (4.5-11.0)
[2023-11-30 23:57] LABS: PTT Partial Thromboplastin Tim 34 SECONDS (25.1-36.5)
[2023-11-30 23:58] LABS: Alanine Aminotransferase 14 IU/L (<50); Albumin 3.1 g/dL (3.5-5.0); Albumin Globulin Ratio 0.9 (1.0-2.8); Alkaline Phosphatase 150 U/L (38-126); Aspartate Aminotransferase 21 IU/L (17-59); BUN Creatinine Ratio 14.7 (6-22); Bilirubin Total 0.2 mg/dL (0.2-1.3); Blood Urea Nitrogen 11 mg/dL (9-20); Calcium 8.7 mg/dL (8.4-10.2); Carbon Dioxide 24 mmol/L (22-32); Chloride 103 mmol/L (98-107); Creatine Kinase 38 U/L (55-170); Estimated Glomerular Filt Rate > 60 mL/min (>60); Globulin 3.4 g/dL (1.7-4.1); Glucose 107 mg/dL (80-110); HEMOLYSIS < 15 (0-50); Lipase 87 U/L (23-300); Potassium 3.8 mmol/L (3.4-5.1); Sodium 133 mmol/L (137-145); Total Protein 6.5 g/dL (6.3-8.2)
[2023-12-01] VITALS (25 sets, daily range): BP systolic 91–121; BP diastolic 50–68; PULSE 81–102; RESP 13–22; TEMP 36.2; O2SAT 93–100; BMI 23.2
[2023-12-01 00:10] LABS: NT-proBNP (BNP-Adult 18+) 1100 pg/mL (<125); Troponin I 0.026 ng/mL (0.01-0.034)
[2023-12-01] MEDS: FUROSEMIDE 40 MG/4 ML VIAL 20 MG IV (00:33)
--- NOTE | 2023-12-01 01:01 | PC.NURSE ---
Pt keeps stating his LEFT arm feels funny and tight. Provider made aware. Verbal order to do a NIH stroke scale.
[2023-12-01 01:21] LABS: D Dimer 1164 ng/ml (<500)
--- NOTE | 2023-12-01 01:23 | PC.NURSE ---
Pt awake and alert lying in ED stretcher. No distress noted at this time. Pt attached to cardiac, blood pressure, resp, and pulse ox monitors with alarms on and audible. Call light in reach.
--- NOTE | 2023-12-01 01:32 | DI.CT.S_ITS ---
PROCEDURE: CT ANGIO CHEST PE PROTOCOL INDICATIONS: hypoxia, broken ribs TECHNIQUE: After the administration of intravenous contrast, 2 mm thick sections acquired from the pulmonary apices to the posterior costophrenic angles. 3-dimensional maximum intensity projection (MIP) coronal and sagittal reformats were then acquired through the thorax. For radiation dose reduction, the following was used: automated exposure control, adjustment of mA and/or kV according to patient size. COMPARISON: [facility], CT, CT ANGIO CHEST PE PROTOCOL, 04/24/2023, 14:12. FINDINGS: Image quality: Diagnostic. Pulmonary arteries: Pulmonary arteries are normal in size, and demonstrate no intraluminal filling defects to suggest central pulmonary embolism. Lower Neck: No enlarged lymph nodes. Thyroid: Normal CT appearance. Axillae: No enlarged lymph nodes. Chest Wall: Unremarkable. Bones: Left humeral head and neck fracture. Healing left-sided rib fractures. Moderate, remote appearing anterior wedge compression fracture of T12. Degenerative bridging osteophytosis. Lungs and Pleura: Patchy airspace disease at both lung bases, left worse than right. Tiny right pleural effusion. No pneumothorax. Mild thickening of the interstitial markings and gravitational changes dependently. No suspicious lung nodules or masses. Heart: Mild cardiomegaly. Moderate to heavy coronary artery calcification. No pericardial effusion. Thoracic Vessels: No aortic aneurysm. Mediastinum and Maddy: No enlarged lymph nodes. Esophagus: No wall thickening. No hiatal hernia. Upper Abdomen: Visualized upper abdomen solid organs and bowel loops appear normal. IMPRESSION: No pulmonary embolus. Posterior bibasilar parenchymal opacities and trace pleural effusion. This may be infectious, atelectatic, or mild edema. Heavy coronary artery calcification. Final interpretation is concordant with preliminary report. Dictated by: Lauren Justin M.D. on 12/01/2023 at 8:46 Approved by: Lauren Justin M.D. on 12/01/2023 at 8:52
--- NOTE | 2023-12-01 02:34 | PC.NURSE ---
Provider aware of current vs. No new orders rcv'd at this time.
[2023-12-01 03:25] LABS: Troponin I 0.038 ng/mL (0.01-0.034)
--- NOTE | 2023-12-01 03:35 | PC.NURSE ---
Attempted to ambulate patient for possible discharge home. Pt unable to ambulate on his own, shaky and stutter-stepping. Immediately placed back in stretcher. Provider informed.
--- NOTE | 2023-12-01 04:29 | P.HP_ITS ---
History of Present Illness History of Present Illness Date Patient Seen: 12/01/23 Chief complaint: SOB Narrative: 67 y/o with PMH of alcoholism, multiple hospitalizations and ED visits related to complications from alcoholism, who presented with progressive dyspnea, b/l leg swelling, hypotension and elevated D dimer, troponins and BNP. Placed in observation for diuresis and further workup, with suspected HF. He had recent prolonged hospitalization for alcohol withdrawal delirium, followed by last one for breakthrough seizure, fall, Lt humerus and ribs fractures. He left rehab facility 2 days ago. [facility] Medical History (Updated 12/01/23 @ 06:11 by Alexander Curtis MD) Cognitive deficits Chronic hyponatremia Left elbow fracture Broken neck Multiple falls Cervical spondylosis with myelopathy Marijuana dependence Osteoarthritis Memory loss Osteoarthrosis Epilepsy, unspecified, not intractable, without status epilepticus Alcohol dependence, uncomplicated Surgical History History of neck surgery History of back surgery H/O foot surgery H/O thumb surgery History of esophagogastroduodenoscopy (EGD) History of colonoscopy Family History Father Cancer Aneurysm Mother Cancer Social History marital status: unknown household members: none lives independently: Yes housing: other ([facility]) Smoking Status: Former smoker alcohol intake: current Meds Home Medications and Allergies Home Medications Medication Instructions Recorded Confirmed Type dronabinol 2.5 mg capsule 2.5 mg PO DAILY #30 caps 10/31/23 11/08/23 Rx amlodipine 5 mg tablet 5 mg PO DAILY #30 tabs 11/04/23 11/08/23 Rx ciprofloxacin HCl 500 mg tablet 500 mg PO BID #14 tabs 11/09/23 Rx phenytoin sodium extended 100 mg 300 mg (3 x 100 mg) PO BID #60 caps 11/09/23 Rx capsule (Dilantin Extended) Allergies Allergy/AdvReac Type Severity Reaction Status Date / Time meperidine [MEPERIDINE] AdvReac Unknown Vomiting Verified 11/08/23 14:21 Review of Systems Review of Systems Narrative: unobtainable - he answered few basic questions with I don't know Exam Vital Signs (past 8 hours): - 11/30/23 23:38 11/30/23 23:39 11/30/23 23:39 Temperature Pulse Rate 107 H 102 H Respiratory Rate 23 21 Blood Pressure 108/56 L Pulse Oximetry 99 100 Oxygen Delivery Method 11/30/23 23:49 12/01/23 00:00 12/01/23 00:00 Temperature 98.7 F Pulse Rate 102 H 102 H Respiratory Rate 23 21 Blood Pressure 108/56 L 107/58 L Pulse Oximetry 98 97 Oxygen Delivery Method Room Air Room Air 12/01/23 00:30 12/01/23 00:30 12/01/23 00:35 Temperature Pulse Rate 97 H 97 H Respiratory Rate 16 22 Blood Pressure 96/51 L Pulse Oximetry 97 97 Oxygen Delivery Method 12/01/23 00:35 12/01/23 00:39 12/01/23 00:39 Temperature Pulse Rate 99 H Respiratory Rate 21 Blood Pressure 92/51 L 121/58 L Pulse Oximetry 98 Oxygen Delivery Method 12/01/23 00:45 12/01/23 00:45 12/01/23 01:00 Temperature Pulse Rate 96 H 97 H Respiratory Rate 16 18 Blood Pressure 101/56 L Pulse Oximetry 98 97 Oxygen Delivery Method Room Air 12/01/23 01:00 12/01/23 01:15 12/01/23 01:15 Temperature Pulse Rate 93 H Respiratory Rate 16 Blood Pressure 108/58 L 93/52 L Pulse Oximetry 100 Oxygen Delivery Method Room Air 12/01/23 01:15 12/01/23 01:20 12/01/23 01:20 Temperature Pulse Rate 94 H Respiratory Rate 15 Blood Pressure 93/52 L 95/52 L Pulse Oximetry 94 Oxygen Delivery Method Room Air 12/01/23 01:30 12/01/23 01:30 12/01/23 01:45 Temperature Pulse Rate 93 H Respiratory Rate 19 Blood Pressure 99/56 L 95/53 L Pulse Oximetry 93 Oxygen Delivery Method 12/01/23 01:45 12/01/23 02:15 12/01/23 02:15 Temperature Pulse Rate 91 H 91 H Respiratory Rate 17 19 Blood Pressure 92/52 L Pulse Oximetry 93 99 Oxygen Delivery Method 12/01/23 02:30 12/01/23 02:31 12/01/23 02:31 Temperature Pulse Rate 88 88 Respiratory Rate 16 16 Blood Pressure 91/50 L Pulse Oximetry 99 99 Oxygen Delivery Method Room Air Room Air 12/01/23 02:45 12/01/23 02:45 12/01/23 03:00 Temperature Pulse Rate 89 87 Respiratory Rate 16 14 Blood Pressure 99/58 L Pulse Oximetry 98 97 Oxygen Delivery Method 12/01/23 03:00 12/01/23 03:15 12/01/23 03:15 Temperature Pulse Rate 86 Respiratory Rate 14 Blood Pressure 98/53 L 94/55 L Pulse Oximetry 96 Oxygen Delivery Method 12/01/23 03:30 12/01/23 03:30 12/01/23 03:31 Temperature Pulse Rate 87 Respiratory Rate 18 Blood Pressure 93/50 L 95/51 L Pulse Oximetry 98 Oxygen Delivery Method 12/01/23 03:31 12/01/23 03:38 12/01/23 03:38 Temperature Pulse Rate 90 90 Respiratory Rate 19 20 Blood Pressure 118/59 L Pulse Oximetry 99 99 Oxygen Delivery Method 12/01/23 03:45 12/01/23 03:45 Temperature Pulse Rate 86 Respiratory Rate 15 Blood Pressure 94/55 L Pulse Oximetry 97 Oxygen Delivery Method Oxygen Delivery Method Room Air Const Other: in no distress, appears ill and tired Neck Other: supple Extrem Other: swollen legs and left upper arm Objective Labs 11/30/23 23:38 11/30/23 23:38 Labs: Laboratory Results - last 24 hr 11/30/23 11/30/23 12/01/23 23:35 23:38 02:55 WBC 7.2 RBC 3.20 L Hgb 9.9 L Hct 29.8 L MCV 93.1 MCH 31.0 MCHC 33.3 RDW 14.3 Plt Count 290 Neut % (Auto) 51.9 Lymph % (Auto) 31.3 [place] % (Auto) 11.9 Eos % (Auto) 4.1 H Baso % (Auto) 0.8 Neut # (Auto) 3700 Lymph # (Auto) 2300 [place] # (Auto) 900 Eos # (Auto) 300 Baso # (Auto) 100 PT 12.4 INR 1.1 APTT 34 D-Dimer 1164 H Sodium 133 L Potassium 3.8 Chloride 103 Carbon Dioxide 24 BUN 11 Creatinine 0.75 Estimated GFR > 60 BUN/Creatinine Ratio 14.7 Glucose 107 Calcium 8.7 Total Bilirubin 0.2 AST 21 ALT 14 Alkaline Phosphatase 150 H Total Creatine Kinase 38 L Troponin I 0.026 0.038 H NT-Pro-B Natriuret Pep 1100 H Total Protein 6.5 Albumin 3.1 L Globulin 3.4 Albumin/Globulin Ratio 0.9 L Lipase 87 Assessment & Plan Assessment and plan (1) Heart failure: Status: Acute (2) Anemia: Status: Acute (3) Alcohol use disorder: Status: Acute (4) Chronic hyponatremia: Status: Acute (5) Epilepsy, unspecified, not intractable, without status epilepticus: Problem details: Seizures onset age 50, (total 7 events/last one 07/01 see ED notes) - grand mal if he tries to quit drinking), took meds - dilantin, stopped 2008, no seizures since as he has not tried to stop drinking alcohol again Status: Acute (6) Wernicke-Korsakoff syndrome (alcoholic): Status: Acute Assessment & Plan narrative: Suspected new onset HF - Lasix, KCl, electrolytes and Is/Os monitoring, telemetry, echocardiogram - w/o chest pain or ischemic changes on EKG Alcoholism / Cognitive Deficits - on last admission left AMA - B1, FA Anemia - down few points since less then a month ago - stool guaiac, PPI - could be upper GI bleed Epilepsy - Dilantin home regimen, level pending DVT prophylaxis - SCDs Time-Based Coding :: [TOTAL MINUTES] spent with patient and on the chart (including review of chart, obtaining history, exam, reviewing outside data, placing orders, documenting exam and treatment plan, and counseling patient) on [DATE].
[2023-12-01 04:32] LABS: Adenovirus Not Detected (Not Detect); B. parapertussis Not Detected (Not Detecte); Bordetella pertussis Not Detected (Not Detect); Chlamydophila pneumoniae Not Detected (Not Detect); Coronavirus 229E Not Detected (Not Detect); Coronavirus HKU1 Not Detected (Not Detect); Coronavirus NL 63 Not Detected (Not Detect); Coronavirus OC43 Not Detected (Not Detect); Human Metapneumovirus Not Detected (Not Detect); Human Rhinovirus/Enterovirus Not Detected (Not Detect); Influenza A Not Detected (Not Detect); Influenza B Not Detected (Not Detect); Mycoplasma pneumoniae Not Detected (Not Detect); Parainfluenza Virus 1 Not Detected (Not Detect); Parainfluenza Virus 2 Not Detected (Not Detect); Parainfluenza Virus 3 Not Detected (Not Detect); Parainfluenza Virus 4 Not Detected (Not Detect); Respiratory Syncytial Virus Not Detected (Not Detect); SARS- CoV-2 Not Detected (Not Detecte)
[2023-12-01 07:15] LABS: Add Manual Diff / Slide Review NO; Basophils Absolute Auto 100 /uL (0-100); Basophils Percent Auto 1.3 % (0-2); Eosinophils Absolute Auto 100 /uL (0-450); Eosinophils Percent Auto 2.2 % (2-4); Hematocrit 25.3 % (41-53); Hemoglobin 8.5 g/dL (13.5-17.5); Lymphocytes Absolute Auto 1500 /uL (1100-4500); Lymphocytes Percent Auto 25.9 % (25-40); Mean Corpuscular HGB Conc 33.8 % (30-36); Mean Corpuscular Volume 91.7 fL (80-100); Monocytes Absolute Auto 700 /uL (0-900); Monocytes Percent Auto 12.3 % (3-14); Neutrophils Absolute Auto 3300 /uL (1500-7000); Neutrophils Percent Auto 58.3 % (50-75); Platelet Count 258 X10^3/uL (150-400); Red Blood Cell Count 2.76 X10^6/uL (4.5-5.9); White Blood Cell Count 5.7 X10^3/uL (4.5-11.0)
[2023-12-01 07:43] LABS: BUN Creatinine Ratio 15.4 (6-22); Blood Urea Nitrogen 10 mg/dL (9-20); Calcium 8.5 mg/dL (8.4-10.2); Carbon Dioxide 23 mmol/L (22-32); Chloride 108 mmol/L (98-107); Estimated Glomerular Filt Rate > 60 mL/min (>60); Glucose 105 mg/dL (80-110); HEMOLYSIS < 15 (0-50); Potassium 3.6 mmol/L (3.4-5.1); Sodium 136 mmol/L (137-145)
[2023-12-01 08:09] LABS: Phenytoin / Dilantin < 3.0 ug/mL (10-20)
--- NOTE | 2023-12-01 08:58 | DI.US.S_ITS ---
PROCEDURE: US PERIPH VENOUS LOW EXTREM LT INDICATIONS: r/o DVT TECHNIQUE: Real-time imaging, as well as color and pulse Doppler interrogation, were performed of the lower extremity deep veins from the inguinal ligament to the popliteal fossa, with documentation of the visualized calf veins. COMPARISON: [facility], CT, CT ANGIO CHEST PE PROTOCOL, 12/01/2023, 1:45. FINDINGS: The common femoral, femoral, popliteal, and the visualized calf veins are normally compressible, and free of intraluminal thrombus. Color and pulse Doppler demonstrate normal phasic intraluminal flow. There is normal augmentation response to distal compression maneuver. IMPRESSION: No findings of lower extremity deep venous thrombosis. Dictated by: Candido Hopson M.D. on 12/01/2023 at 10:20 Approved by: Candido Hopson M.D. on 12/01/2023 at 10:21
[2023-12-01] MEDS: THIAMINE 100 MG TABLET PO (09:14)
[2023-12-01] MEDS: FUROSEMIDE 40 MG TABLET PO (09:14)
[2023-12-01] MEDS: PHENYTOIN ER 100 MG CAPSULE 300 MG PO (09:14)
[2023-12-01] MEDS: PANTOPRAZOLE 40 MG VIAL IV (09:14)
[2023-12-01] MEDS: FOLIC ACID 1 MG TABLET PO (09:14)
[2023-12-01] MEDS: POTASSIUM CHLORIDE 20 MEQ TAB 40 MEQ PO (09:14)
--- NOTE | 2023-12-01 12:15 | P.DS_ITS ---
History of Present Illness History of Present Illness Date Patient Seen: 12/01/23 Time Patient Seen: 12:17 Chief complaint: SOB Narrative: 67 y/o with PMH of alcoholism, multiple hospitalizations and ED visits related to complications from alcoholism, who presented with progressive dyspnea, b/l leg swelling, hypotension and elevated D dimer, troponins and BNP. Placed in observation for diuresis and further workup, with suspected HF. He had recent prolonged hospitalization for alcohol withdrawal delirium, followed by last one for breakthrough seizure, fall, Lt humerus and ribs fractures. He left rehab facility 2 days ago. Discharge Providers Provider Date of admission: 12/01/23 03:55 Discharge Date: 12/01/23 Primary care physician: Noris Shipley MD Discharge provider: Ottoniel Eduardo DO Summary Hospital Course Discharge Diagnosis: (1) Heart failure, uncertain type, likely diastolic, improved (2) Anemia: (3) Alcohol use disorder: (4) Chronic hyponatremia: (5) Epilepsy, unspecified, not intractable, without status epilepticus: Hospital Course: 67 M with PMH of alcohol use, prior seizure who presented with shortness of breath and leg edema. CTA was negative for PE, LLE was negative for DVT. He was started on IV furosemide and admitted for further evaluation. He was recently discharged from a [facility] care facility, had not been home long prior to his return to the ER. The following morning after admission, he felt much improved, his legs were less swollen and he had no dyspnea and he was adamant on going home. He was ambulatory, aware of why he was in the hospital, and wished to be discharge home. Echocardiogram from 2 months ago was normal, and patient wished to leave before repeat limited study could be performed. He was advised to follow up with PCP as soon as possible after discharge for echocardiogram. His home antihypertensive was changed to furosemide for now. After discussion with case management APS report was filed, but has complex social situation with difficulty in finding penitentiary care placement, but no reason for ongoing social work evaluation as an inpatient was deemed necessary. Hg was noted to be lower, possibly due to fluids, he had no signs nor symptoms of active bleeding and denied dizziness, weakness, or continued shortness of breath after diuresis. Time Spent with Patient Time spent: Greater than 30 minutes Exam Vital Signs (past 8 hours): - 12/01/23 04:30 12/01/23 04:30 12/01/23 05:10 Temperature Pulse Rate 85 Respiratory Rate 13 Blood Pressure 92/54 L Pulse Oximetry 96 Oxygen Delivery Method Room Air Oxygen Flow Rate 12/01/23 08:00 Temperature 97.1 F L Pulse Rate 83 Respiratory Rate 16 Blood Pressure 95/68 Pulse Oximetry 94 Oxygen Delivery Method Oxygen Flow Rate 0 Oxygen Delivery Method Room Air Oxygen Flow Rate 0 Const Other: in no distress, WDWN Resp Other: CTA B/l no wheezing rhonchi or rales. Cardio Other: RRR no m/r/g Extrem Other: trace bilateral pedal edema, L>R Objective Labs 12/01/23 06:55 12/01/23 06:55 Labs: Laboratory Results - last 24 hr 11/30/23 11/30/23 12/01/23 23:35 23:38 02:55 WBC 7.2 RBC 3.20 L Hgb 9.9 L Hct 29.8 L MCV 93.1 MCH 31.0 MCHC 33.3 RDW 14.3 Plt Count 290 Neut % (Auto) 51.9 Lymph % (Auto) 31.3 Lasalle % (Auto) 11.9 Eos % (Auto) 4.1 H Baso % (Auto) 0.8 Neut # (Auto) 3700 Lymph # (Auto) 2300 [place]alle # (Auto) 900 Eos # (Auto) 300 Baso # (Auto) 100 PT 12.4 INR 1.1 APTT 34 D-Dimer 1164 H Sodium 133 L Potassium 3.8 Chloride 103 Carbon Dioxide 24 BUN 11 Creatinine 0.75 Estimated GFR > 60 BUN/Creatinine Ratio 14.7 Glucose 107 Calcium 8.7 Total Bilirubin 0.2 AST 21 ALT 14 Alkaline Phosphatase 150 H Total Creatine Kinase 38 L Troponin I 0.026 0.038 H NT-Pro-B Natriuret Pep 1100 H Total Protein 6.5 Albumin 3.1 L Globulin 3.4 Albumin/Globulin Ratio 0.9 L Lipase 87 Phenytoin Chlamy pneumoniae PCR Adenovirus (PCR) B. pertussis DNA (PCR) B.parapertussis DNA PCR Coronavirus OC43 (PCR) Coronavirus HKU1 (PCR) Coronavirus 229E (PCR) SARS-CoV-2 (PCR) Coronavirus NL63 (PCR) Human Metapneumovir PCR Influenza Type A (PCR) Influenza Type B (PCR) M. pneumoniae (PCR) Parainfluenza 1 (PCR) Parainfluenza 2 (PCR) Parainfluenza 3 (PCR) Parainfluenza 4 (PCR) RSV (PCR) Entero/Rhino (PCR) 12/01/23 12/01/23 03:35 06:55 WBC 5.7 RBC 2.76 L Hgb 8.5 L Hct 25.3 L MCV 91.7 MCH 31.0 MCHC 33.8 RDW 14.0 Plt Count 258 Neut % (Auto) 58.3 Lymph % (Auto) 25.9 Lasalle % (Auto) 12.3 Eos % (Auto) 2.2 Baso % (Auto) 1.3 Neut # (Auto) 3300 Lymph # (Auto) 1500 [place]alle # (Auto) 700 Eos # (Auto) 100 Baso # (Auto) 100 PT INR APTT D-Dimer Sodium 136 L Potassium 3.6 Chloride 108 H Carbon Dioxide 23 BUN 10 Creatinine 0.65 L Estimated GFR > 60 BUN/Creatinine Ratio 15.4 Glucose 105 Calcium 8.5 Total Bilirubin AST ALT Alkaline Phosphatase Total Creatine Kinase Troponin I NT-Pro-B Natriuret Pep Total Protein Albumin Globulin Albumin/Globulin Ratio Lipase Phenytoin < 3.0 L Chlamy pneumoniae PCR Not detected Adenovirus (PCR) Not detected B. pertussis DNA (PCR) Not detected B.parapertussis DNA PCR Not detected Coronavirus OC43 (PCR) Not detected Coronavirus HKU1 (PCR) Not detected Coronavirus 229E (PCR) Not detected SARS-CoV-2 (PCR) Not detected Coronavirus NL63 (PCR) Not detected Human Metapneumovir PCR Not detected Influenza Type A (PCR) Not detected Influenza Type B (PCR) Not detected M. pneumoniae (PCR) Not detected Parainfluenza 1 (PCR) Not detected Parainfluenza 2 (PCR) Not detected Parainfluenza 3 (PCR) Not detected Parainfluenza 4 (PCR) Not detected RSV (PCR) Not detected Entero/Rhino (PCR) Not detected [facility] Medical History (Updated 12/01/23 @ 06:11 by Alexander Curtis MD) Cognitive deficits Chronic hyponatremia Left elbow fracture Broken neck Multiple falls Cervical spondylosis with myelopathy Marijuana dependence Osteoarthritis Memory loss Osteoarthrosis Epilepsy, unspecified, not intractable, without status epilepticus Alcohol dependence, uncomplicated Surgical History History of neck surgery History of back surgery H/O foot surgery H/O thumb surgery History of esophagogastroduodenoscopy (EGD) History of colonoscopy Family History Father Cancer Aneurysm Mother Cancer Social History marital status: unknown household members: none lives independently: Yes housing: other ([facility]) Smoking Status: Former smoker alcohol intake: current Discharge Plan Discharge Plan Patient Disposition: Home Provider Discharge Comment: You were admitted to the hospital with shortness of breath and leg swelling. Please follow up with your PCP as soon as possible after discharge to review medications and continue evaluation. For now stop amlodipine and start new BP medications Discharge orders & Medications Prescriptions: New furosemide 20 mg tablet 20 mg PO DAILY 30 Days Qty: 30 0RF Continued phenytoin sodium extended [Dilantin Extended] 100 mg Capsule 300 mg PO BID Qty: 60 2RF dronabinol 2.5 mg Capsule 2.5 mg PO DAILY Qty: 30 1RF Discontinued amlodipine 5 mg tablet 5 mg PO DAILY Qty: 30 2RF ciprofloxacin HCl 500 mg tablet 500 mg PO BID Qty: 14 0RF Follow up/Referrals: Noris Shipley MD [Primary Care Provider] - Diet/Activity/Treatments Diet: Diet as Tolerated and Low-sodium Activity: As tolerated no restrictions Visit Report/Discharge Packet Stand Alone Forms: Patient Portal/API, Stroke Signs & Symptoms Discharge Data Primary Care Provider: Noris Shipley Attending Provider: Alexander Gupta Admit Date/Time: 12/01/23 03:55 Quality VTE Deep Vein Thrombosis/Pulmonary Embolism Present on Admission: No
--- NOTE | 2023-12-01 12:32 | CM.DANOTE ---
Initial DCP Assessment Note Pt is a 67 yo male, resident at [facility] living apt in [place], admitted OBS for management of heart failure with swelling and SOB. Patient is being discharged home today. PCP: Noris Shipley Payer: [facility] MCR/MAL[place] Reviewed chart, pt discussed in multidisciplinary rounds this morning. Patient is eager to return home today and is still considered decisional at this time. Met w/patient; patient reports he just got home from [place] and felt it was a waste of time. This CRISIS INTERVENTION COUNSELOR suggested that patient was admitted at [facility] because he wasn't himself entirely before admission and needed help, patient denied this. Patient reports he has been drinking non-alcoholic beer now. Patient feels the hardest thing about being home alone is that he can have a seizure and falls at any time. Patient states he would like to have a caregiver. Placed call to mateusz Vasques and [employer]PR[employer] P [phone]. Layo says his greatest concern is patient's falls. Layo has discussed living in a care facility with patient and patient has been agreeable in the past. Strongly encouraged Layo to get in touch with Yolanda Owen, patient's current [facility] Technical Proposal Writer P [phone], discuss current state of patient's financial eligibility for custodial care. Layo could assist by hiring caregivers privately for patient if he still needs to spend down some savings. Layo stated agreement. In addition, provided number for Don Moreno formerly [facility] packer [employer] P [phone]. Connected then with Don Moreno to update that patient had been admitted yesterday and is being discharged today, return home. Don explained that when he has spoken with Yolanda Owen [facility], about patient, Yolanda has said that she cannot follow patients that are not admitted to the hospital. Although no other state case reviewer has been assigned (?) Placed call to Yolanda Owen [facility] P [phone]. Case has been closed with her although not closed entirely. Patient is not currently financially eligible for custodial care, he is over resourced. Current financial worker is [employer] P [phone]. Yolanda explains patient could pay for [facility] for a few days privately and/or copies of medical bills could be shared and patient would likely be qualified quickly. Placed call to VILLA Mares to update with above and strongly encouraged connection with [facility] financial worker LUIS FERNANDO to discuss next steps. Patient's [place] identification # according to Yolanda Owen is #[id number] Online APS Report Confirmation Number: [id number] Reported By: Lizeth Aguilar Date/Time Submitted: 12/01/2023 01:18 PM RAFAEL Arana Discharge Planning/Care Management CM Discharge Assessment Start: 12/01/23 12:18 Freq: Status: Active Protocol: Document 12/01/23 12:18 JW (Rec: 12/01/23 12:30 PB [id number]) Discharge Planning Assessment Assigned Mandate Retail Service Merchandiser RAFAEL Dubois/Assigned Designee Name Layo Mcneill, mateusz/VILLA Contact Information [phone] Advance Directives? Yes Advance Directives on File No History Provided By Patient,Family Member,Medical Record Has Patient been admitted in last 30 Yes days? Comment ER 11/08 ER 09/10 OBS 11/07 ER 11/04 ER 11/02 INPT 10/02 Prior Living Arrangements Apartment/Condo Household Members none Type of transportation used prior to Relies on Others admit Comment Patient reports he walks Independent with ADL's No Is patient alert and oriented? No: confusion and poor insight noted, remains decisional Needs Assistance With Meal Prep,Managing Medications ,Home Chores / Shopping Comment Patient states his friend just gave him an electric scooter Comment [facility]. Discharge Plan Home Transportation Arrangement Likely medicaid transport vs friend pov Referrals Initiated Other
--- NOTE | 2023-12-01 12:41 | PC.NURSE ---
Patient is A&OX3, forgetfull, eager to discharge today from the hospital. He is pleasant and not agitated but continues to ask to be cleared to go home. MD at bedside discussing diagnosis with patient and he agrees to stay for BLE U/S to rule out DVT. He is cleared for discharge after results concluded. He acknowledges agreement and understanding to picking up medications and staying on his medications. He is escorted by PRESSURE TESTING TECHNICIAN via w\ to main entrance of the hospital for discharge via [employer]'s taxi to where he resides at 1242 pm.
--- NOTE | 2023-12-01 12:44 | PC.NURSE ---
attempted to conduct medication reconciliation with patient but he does not remember medications, doses and times.
--- NOTE | 2023-12-03 14:02 | CM.DPNOTE ---
Post DC Note Call from Laurent Guerrero, APS P [phone]. Updated with summary of Gwendolyn's hx over the past month and information collected from calls made during Gwendolyn's last medical admission. Laurent plans to contact VILLA rutherford. RAFAEL Arana
== END 2023-12-01 12:42 | disposition home or self-care (01) ==
LOC: ED 12-01 03:55 → AC 12-01 03:56
PROVIDERS: Admitting Provider Internal Medicine; Emergency Provider Emergency Medicine; Family Provider Internal Medicine; PCP Family Medicine; Visit Provider Internal Medicine
DX: I50.9 Heart failure, unspecified (principal); D64.9 Anemia, unspecified; E87.1 Hypo-osmolality and hyponatremia; G40.909 Epilepsy, unspecified, not intractable, without status epilepticus; F10.26 Alcohol dependence with alcohol-induced persisting amnestic disorder; Z11.52 Encounter for screening for COVID-19
CPT/HCPCS: 36415; 71045; 71275; 80048; 80053; 80185; 82550; 83690; 83880; 84484; 85025; 85379; 85610; 85730; 87633; 93005; 93971; 96374; 96375; 99285; G0378; J1940; J2470; Q9967

== ENCOUNTER 2024-01-24 10:03 | Emergency (ER) | payer MEDICARE, MEDICAID, SELFPAY ==
[2023-12-01 04:59] VITALS: BMI 23.2
[2024-01-24] VITALS (17 sets, daily range): BP systolic 93–185; BP diastolic 55–92; PULSE 82–114; RESP 13–28; TEMP 36.8; O2SAT 97–100; BMI 21.5
--- NOTE | 2024-01-24 10:10 | ED.GENADULT ---
HPI - General Adult General Chief complaint: Seizure Stated complaint: seizure, arm pain, chest pain Time Seen by Provider: 01/24/24 10:10 History of Present Illness HPI narrative: 68-year-old gentleman with a history of alcohol use disorder, withdrawal related seizures, hyponatremia, anemia, heart failure who presents this morning when he woke up on the floor it was concerned that he had a seizure. He states he has had a beer last night and another 1 at 9:30 a.m. this morning. He typically drinks at least 10 beers a day. He is complaining of some chest pain. He is alert, moving all extremity somewhat disheveled. Complains of some nonspecific chest pain, upper abdominal pain right elbow pain. He states he has currently staying at [facility], reports he has been taking his Dilantin, notes that he has been generally feeling unwell and more weak without more specific complaints over the last 3-4 days. Related Data Home Medications Medication Instructions Recorded Confirmed amlodipine 5 mg tablet 5 mg PO DAILY 12/18/23 12/18/23 atorvastatin 80 mg tablet 80 mg PO BEDTIME 12/18/23 12/18/23 levetiracetam 500 mg tablet 500 mg PO BID 12/18/23 12/18/23 olanzapine 5 mg tablet 2.5 mg PO TID 12/18/23 12/18/23 Previous Rx's Medication Instructions Recorded phenytoin sodium extended 100 mg 300 mg (3 x 100 mg) PO BID #180 12/18/23 capsule (Dilantin Extended) caps Allergies Allergy/AdvReac Type Severity Reaction Status Date / Time meperidine [MEPERIDINE] AdvReac Unknown Vomiting Verified 01/24/24 10:14 Review of Systems Review of Systems Narrative: Pertinent positive and negative findings as per HPI Patient History Medical History (Updated 01/24/24 @ 12:54 by Veena Oliver MD) Cognitive deficits Chronic hyponatremia Left elbow fracture Broken neck Multiple falls Cervical spondylosis with myelopathy Marijuana dependence Osteoarthritis Memory loss Osteoarthrosis Epilepsy, unspecified, not intractable, without status epilepticus Alcohol dependence, uncomplicated Surgical History History of neck surgery History of back surgery H/O foot surgery H/O thumb surgery History of esophagogastroduodenoscopy (EGD) History of colonoscopy Family History Father Cancer Aneurysm Mother Cancer Social History marital status: unknown household members: none lives independently: Yes housing: other ([facility]) Smoking Status: Former smoker alcohol intake: current Smoking Status: Former smoker tobacco type: cigarettes alcohol intake frequency: 3 or more drinks per day Alcohol type: beer and hard liquor Exam Initial Vital Signs Initial Vital Signs: Vital Signs Temperature 98.2 F 01/24/24 10:04 Pulse Rate 103 H 01/24/24 10:04 Respiratory Rate 18 01/24/24 10:04 Blood Pressure 185/92 H 01/24/24 10:04 Pulse Oximetry 99 01/24/24 10:04 Oxygen Delivery Method Room Air 01/24/24 10:04 General: Chronically ill-appearing, disheveled, abrasion to the right brow HEENT: Moist mucous membranes, normal sclera with reactive pupils, Neck: No JVD, no midline point tenderness Respiratory: Lungs mild rhonchi in the bases, mild scattered wheeze, no respiratory distress, no retractions Cardiac: Regular rate and rhythm no murmurs no bruits Abdomen: Soft, nontender, no ascites, no flank pain Neurologic: He is moving all extremities, no significant tremor at this time Extremities: Complains of right elbow pain no significant swelling or contusion he is able to extend it fully. No lower extremity edema Psych: Cooperative, appropriate insight and affect Course Orders Ordered: ED Orders 01/24/24 10:13 EKG-12 Lead Stat 01/24/24 10:14 CT head/brain wo con Stat XR chest 1V Stat XR elbow RT min 3V Stat 01/24/24 10:17 UA Complete [Urinalysis and Microscopic] Stat 01/24/24 10:18 Complete Blood Count AUTO DIFF Stat Comprehensive Metabolic Panel Stat ETOH [Ethanol (ETOH)] Stat PT [Prothrombin Time INR] Stat PTT Partial Thromboplastin Eduar Stat Phenytoin / Dilantin Stat 01/24/24 10:40 Ammonia (NH3) Stat 01/24/24 12:18 urine tox [Urine Drug Screen, Rapid] Stat Ondansetron HCl (Ondansetron 4 Mg/2 Ml Inj) 4 mg IV NOW PRN PRN Reason: Nausea And Vomiting Last Admin: 01/24/24 10:41 Dose: 4 mg Documented By: CODY Discontinued Medications Amlodipine Besylate (Amlodipine 5 Mg Tablet) 5 mg PO NOW ONE Stop: 01/24/24 10:51 Last Admin: 01/24/24 11:01 Dose: 5 mg Documented By: CODY Thiamine HCl 100 mg/ Sodium (Chloride) 101 mls @ 404 mls/hr IV NOW ONE Stop: 01/24/24 10:18 Last Infusion: 01/24/24 10:57 Dose: Infused Documented By: Admin: 01/24/24 10:30 Dose: 404 mls/hr Documented By: CODY Sodium Chloride (Normal Saline 0.9%) 1,000 mls @ 1,000 mls/hr IV BOLUS ONE Stop: 01/24/24 11:49 Last Infusion: 01/24/24 13:04 Dose: Infused Documented By: Infusion: 01/24/24 11:45 Dose: 1,000 mls/hr Documented By: AMBIKA(2) Infusion: 01/24/24 11:05 Dose: 0 mls/hr Documented By: AMBIKA(2) Admin: 01/24/24 11:01 Dose: 1,000 mls/hr Documented By: CODY Fosphenytoin Sodium 1,200 mg/ (Sodium Chloride) 124 mls @ 248 mls/hr IV NOW ONE Stop: 01/24/24 11:54 Last Infusion: 01/24/24 13:04 Dose: Infused Documented By: Admin: 01/24/24 12:10 Dose: 248 mls/hr Documented By: AMBIKA(2) Vital Signs Vital signs: Vital Signs - 8 hr 01/24/24 10:04 01/24/24 10:11 01/24/24 10:30 Temperature 98.2 F Pulse Rate 103 H 101 H 93 H Respiratory Rate 18 28 H 21 Blood Pressure 185/92 H Pulse Oximetry 99 98 100 Oxygen Delivery Method Room Air 01/24/24 10:30 01/24/24 11:00 01/24/24 11:00 Temperature Pulse Rate 86 Respiratory Rate 13 Blood Pressure 110/74 132/72 Pulse Oximetry 99 Oxygen Delivery Method 01/24/24 11:14 01/24/24 11:14 01/24/24 11:30 Temperature Pulse Rate 92 H Respiratory Rate 14 Blood Pressure 121/73 112/66 Pulse Oximetry 98 Oxygen Delivery Method 01/24/24 11:30 01/24/24 12:00 01/24/24 12:00 Temperature Pulse Rate 95 H 114 H Respiratory Rate 15 21 Blood Pressure 158/79 H Pulse Oximetry 98 Oxygen Delivery Method 01/24/24 12:30 01/24/24 12:30 01/24/24 13:00 Temperature Pulse Rate 109 H Respiratory Rate 19 Blood Pressure 120/73 100/56 L Pulse Oximetry 97 Oxygen Delivery Method 01/24/24 13:00 01/24/24 13:18 01/24/24 13:18 Temperature Pulse Rate 88 92 H Respiratory Rate 17 18 Blood Pressure 93/56 L Pulse Oximetry 99 99 Oxygen Delivery Method 01/24/24 13:30 01/24/24 13:30 01/24/24 13:42 Temperature Pulse Rate 90 Respiratory Rate 18 Blood Pressure 104/58 L 107/61 Pulse Oximetry 98 Oxygen Delivery Method 01/24/24 13:42 01/24/24 14:04 01/24/24 14:17 Temperature Pulse Rate 93 H 82 Respiratory Rate 17 18 Blood Pressure 107/61 119/64 Pulse Oximetry 98 100 Oxygen Delivery Method 01/24/24 14:17 01/24/24 14:30 01/24/24 14:30 Temperature Pulse Rate 88 86 Respiratory Rate 17 15 Blood Pressure 108/55 L Pulse Oximetry 98 99 Oxygen Delivery Method 01/24/24 15:00 01/24/24 15:00 Temperature Pulse Rate 86 Respiratory Rate 18 Blood Pressure 107/63 Pulse Oximetry 99 Oxygen Delivery Method Medical Decision Making Lab Data 01/24/24 10:18 01/24/24 10:18 Labs: Lab Results 01/24/24 01/24/24 Range/Units 10:18 10:40 WBC 9.6 (4.5-11.0) X10^3/uL RBC 4.94 (4.5-5.9) X10^6/uL Hgb 13.9 (13.5-17.5) g/dL Hct 42.5 (41-53) % MCV 86.0 (80-100) fL MCH 28.1 (26-34) PG MCHC 32.7 (30-36) % RDW 16.4 H (11.6-14.8) % Plt Count 202 (150-400) X10^3/uL Neut % (Auto) 78.9 H (50-75) % Lymph % (Auto) 10.3 L (25-40) % [place] % (Auto) 10.1 (3-14) % Eos % (Auto) 0.2 L (2-4) % Baso % (Auto) 0.5 (0-2) % Neut # (Auto) 7600 H (7209-4817) /uL Lymph # (Auto) 1000 L (2005-2318) /uL [place] # (Auto) 1000 H (0-900) /uL Eos # (Auto) 0 (0-450) /uL Baso # (Auto) 0 (0-100) /uL PT 10.9 (9.4-12.5) SECONDS INR 1.0 (0.9-1.3) APTT 31 (25.1-36.5) SECONDS Sodium 137 (137-145) mmol/L Potassium 4.0 (3.4-5.1) mmol/L Chloride 100 (98-107) mmol/L Carbon Dioxide 21 L (22-32) mmol/L BUN 7 L (9-20) mg/dL Creatinine 0.62 L (0.66-1.25) mg/dL Estimated GFR > 60 (>60) mL/min BUN/Creatinine Ratio 11.3 (6-22) Glucose 105 (80-110) mg/dL Calcium 9.4 (8.4-10.2) mg/dL Total Bilirubin 0.9 (0.2-1.3) mg/dL AST 35 (17-59) IU/L ALT 21 (<50) IU/L Alkaline Phosphatase 141 H (38-126) U/L Ammonia < 9 L (9-30) umol/L Total Protein 8.3 H (6.3-8.2) g/dL Albumin 4.7 (3.5-5.0) g/dL Globulin 3.6 (1.7-4.1) g/dL Albumin/Globulin Ratio 1.3 (1.0-2.8) Phenytoin 9.9 L (10-20) ug/mL Ethyl Alcohol < 10 ( - 10) mg/dL ECG Data Interpretation: PROCEDURE: CT HEAD/BRAIN WO CON INDICATIONS: fall, seizure TECHNIQUE: Noncontrast 4.5 mm thick angled axial sections acquired from the foramen magnum to the vertex, with coronal and sagittal reformats. For radiation dose reduction, the following was used: automated exposure control, adjustment of mA and/or kV according to patient size. COMPARISON: [facility], CT, CT HEAD/BRAIN WO CON, 11/10/2023, 12:40 FINDINGS: Image quality: Diagnostic. CSF spaces: Basal cisterns are patent. No extra-axial fluid collections. Ventricles are normal in size and shape. Brain: No midline shift. No intracranial masses or hemorrhage. Cornejo-white matter interface is normal. Moderate cerebral and cerebellar volume loss with multifocal white matter chronic ischemic change noted. Atherosclerotic calcification noted associated with cavernous segments of both internal carotid arteries. Skull and face: Calvarium and visualized facial bones are intact, without suspicious lesions. Sinuses: Visualized sinuses and mastoids are clear. IMPRESSION: Atrophy and chronic ischemic change without acute hemorrhage or mass effect Approved by: Heriberto Root M.D. on 01/24/2024 at 11:32 MDM Narrative Medical decision making narrative: CC: Awoke on the floor, possible seizure Complicating co-morbidities: Alcohol use disorder Data collected from: patient Social determinants of health that may influence the patients condition: Patient has multiple psychosocial issues, has been seen admitted to our hospital for similar complaints multiple times. Adult protective Services, social economist have all been involved. He has had a [facility] stay in the past. Apparently does carry a diagnosis of a seizure disorder and supposed to be taking Dilantin he does not appear to be doing so. He does have home health, has been offered longterm care with discharge from previous admissions and has declined Medical records reviewed: In the last year: ED/urgent care February 19, August 31, November 02, , December 17 Hospital admit April 24October 02-October 30, November 07November 29, Differential considered: Exacerbation of all chronic illnesses including alcohol use disorder, seizure, hyponatremia, failure to thrive with significant protein malnutrition Exam documented above, pertinent findings include: Disheveled, does complain that he bit his tongue I do not see obvious injury to his tongue or blood in his mouth at this time. Abrasion to the right forehead. No murmurs, mild intermittent rhonchi and wheeze Lab Test results independently reviewed as above. Pertinent findings: CBC is unremarkable Chemistries are reassuring Ammonia is undetectable Phenytoin level is just under therapeutic at 9.9 Alcohol level is 0, he did mentioned that he had a beer just prior to arrival Independently reviewed EKG: Sinus rhythm at a rate of 97 with no acute ischemic changes Imaging studies independently reviewed: Chest x-ray shows no cardiomegaly, possibility of right middle lobe infiltrate developing raises concern for aspiration pneumonia given possible seizure Elbow x-ray shows no acute fractures CT scan of the head is unremarkable Consultations: Treatments: IV Ativan for acute seizure IV thiamine, L of fluid, Norvasc for baseline hypertension, fosphenytoin IV load Re-evaluations: 1150 called to bedside with acute seizure activity. Upward right lateral eye movement, rhythmic tonic-clonic movement in all extremities. Lasting approximately 2.5 minutes, brief postictal. He was given 2 mg of Ativan. Labs reviewed at the time. It looks like he is in fact taking his Dilantin level is slightly low but he did not take his morning dose. Will load him with fosfomycin at this time 1pm patient was groggy after the Ativan given. He states he is feeling somewhat better. When asked if I felt he needed to stay in the hospital he did not think so. In the absence of significant pathology found, knowing that he is staying at [facility] and does have stable housing at this point, does have his medications and has been taking it, does not appear to be significantly drinking and not currently showing any signs of alcohol withdrawal we will re-evaluate as the Ativan continues to wear off. He may be able to be discharged home 215pm patient continues to state that he has not hurting, he would like to go home however he is not willing to eat or drink and declines getting a bed. We will continue to try and encourage him to be up and moving in anticipation of discharge Discussion: 68-year-old gentleman currently living at [facility] with possible seizure this morning was on the floor. Head CT is unremarkable. Labs were actually relatively reassuring with a negative alcohol level without signs of alcohol withdrawal. He is taking his Dilantin was given additional IV Dilantin in the emergency department. Currently seems to be back to his baseline, has housing, medications and no indication for additional imaging or hospitalization at this time he will be discharged Discharge Plan Departure Patient Disposition: Home Clinical Impression: Epilepsy, unspecified, not intractable, without status epilepticus Qualifiers: Epilepsy type: unspecified Qualified Code(s): G40.909 - Epilepsy, unspecified, not intractable, without status epilepticus Fall Qualifiers: Encounter type: initial encounter Qualified Code(s): W19.XXXA - Unspecified fall, initial encounter Instructions: DI for Seizure Disorder -- Adult Activity Restrictions/Additional Instructions: It does sound like you had a small seizure. Your workup today was quite reassuring. There was no bleeding inside your brain. In observing you in the emergency department for approximately 6 hours you are not showing any signs of acute alcohol withdrawal so I think this was truly a seizure related to your seizure disorder rather than to any alcohol issues You were given an extra dose of IV seizure medications but do need to keep taking all of your usual medications as prescribed If you find that you are getting worse or develop any new symptoms, please feel free to return to the emergency department for further evaluation. Prescriptions: No Action olanzapine 5 mg tablet 2.5 mg PO TID atorvastatin 80 mg tablet 80 mg PO BEDTIME amlodipine 5 mg tablet 5 mg PO DAILY levetiracetam 500 mg tablet 500 mg PO BID phenytoin sodium extended [Dilantin Extended] 100 mg capsule 300 mg PO BID Qty: 180 2RF Referrals: Noris Shipley MD [Primary Care Provider] - Stand Alone Forms: Patient Portal/API/Survey
--- NOTE | 2024-01-24 10:13 | EKG_ITS ---
[address] [address] Test Date: 2024-01-24 Pat Name: Shine Arthur Department: Room: Gender: Male [employer]: MUSA : 1955 Requested By: Order Number: [id number] Reading MD: Phil Dwyer MD Measurements Intervals [place] Rate: 97 P: 47 CA: 170 QRS: 49 QRSD: 74 T: 66 QT: 364 QTc: 462 Interpretive Statements Normal sinus rhythm Electronically Signed On 01-25-2024 17:06:12 PST by Phil Dwyer MD
--- NOTE | 2024-01-24 10:14 | DI.RAD.S_ITS ---
PROCEDURE: XR ELBOW RT MIN 3V INDICATIONS: fall, pain TECHNIQUE: 3 views of the elbow were acquired. COMPARISON: None. FINDINGS: Bones: No fractures or dislocations. No suspicious bony lesions. Generalized decreased osseous mineralization noted. Soft tissues: Joint effusion elevates the anterior humeral fat pad. Dense atherosclerotic vascular calcification noted. IMPRESSION: Osteopenia and joint effusion without visualized fracture. Consider follow-up radiograph in 7-10 days to assess for occult fracture. Approved by: Heriberto Root M.D. on 01/24/2024 at 10:33
--- NOTE | 2024-01-24 10:14 | DI.CT.S_ITS ---
PROCEDURE: CT HEAD/BRAIN WO CON INDICATIONS: fall, seizure TECHNIQUE: Noncontrast 4.5 mm thick angled axial sections acquired from the foramen magnum to the vertex, with coronal and sagittal reformats. For radiation dose reduction, the following was used: automated exposure control, adjustment of mA and/or kV according to patient size. COMPARISON: [facility], CT, CT HEAD/BRAIN WO CON, 11/10/2023, 12:40 FINDINGS: Image quality: Diagnostic. CSF spaces: Basal cisterns are patent. No extra-axial fluid collections. Ventricles are normal in size and shape. Brain: No midline shift. No intracranial masses or hemorrhage. Cornejo-white matter interface is normal. Moderate cerebral and cerebellar volume loss with multifocal white matter chronic ischemic change noted. Atherosclerotic calcification noted associated with cavernous segments of both internal carotid arteries. Skull and face: Calvarium and visualized facial bones are intact, without suspicious lesions. Sinuses: Visualized sinuses and mastoids are clear. IMPRESSION: Atrophy and chronic ischemic change without acute hemorrhage or mass effect Approved by: Heriberto Root M.D. on 01/24/2024 at 11:32
--- NOTE | 2024-01-24 10:14 | DI.RAD.S_ITS ---
PROCEDURE: XR CHEST 1V INDICATIONS: fall, seizure TECHNIQUE: One view of the chest was acquired. COMPARISON: [facility], CR, XR CHEST 1V, 11/30/2023, 23:45. FINDINGS: Surgical changes and devices: None. Lungs and pleura: Lungs are clear. No pleural effusions or pneumothorax. Mediastinum: Mediastinal contours appear normal. Heart size is normal. Bones and chest wall: Generalized decreased osseous mineralization noted. Lower cervical spine plate and screw hardware. Old ununited left proximal humeral fracture IMPRESSION: No acute cardiopulmonary abnormality is seen. Approved by: Heriberto Root M.D. on 01/24/2024 at 10:24
[2024-01-24 10:29] LABS: Add Manual Diff / Slide Review NO; Basophils Absolute Auto 0 /uL (0-100); Basophils Percent Auto 0.5 % (0-2); Eosinophils Absolute Auto 0 /uL (0-450); Eosinophils Percent Auto 0.2 % (2-4); Hematocrit 42.5 % (41-53); Hemoglobin 13.9 g/dL (13.5-17.5); Lymphocytes Absolute Auto 1000 /uL (1100-4500); Lymphocytes Percent Auto 10.3 % (25-40); Mean Corpuscular HGB Conc 32.7 % (30-36); Mean Corpuscular Hemoglobin 28.1 PG (26-34); Monocytes Absolute Auto 1000 /uL (0-900); Monocytes Percent Auto 10.1 % (3-14); Neutrophils Absolute Auto 7600 /uL (1500-7000); Neutrophils Percent Auto 78.9 % (50-75); Platelet Count 202 X10^3/uL (150-400); Red Blood Cell Count 4.94 X10^6/uL (4.5-5.9); Red Cell Distribution Width 16.4 % (11.6-14.8); White Blood Cell Count 9.6 X10^3/uL (4.5-11.0)
[2024-01-24] MEDS: THIAMINE 100 MG in SODIUM CHLORIDE 0.9% 100 ML 404 MG IV (10:30)
[2024-01-24 10:34] LABS: Prothrombin Time 10.9 SECONDS (9.4-12.5)
[2024-01-24 10:37] LABS: PTT Partial Thromboplastin Tim 31 SECONDS (25.1-36.5)
[2024-01-24 10:38] LABS: Alanine Aminotransferase 21 IU/L (<50); Albumin 4.7 g/dL (3.5-5.0); Albumin Globulin Ratio 1.3 (1.0-2.8); Alkaline Phosphatase 141 U/L (38-126); Aspartate Aminotransferase 35 IU/L (17-59); BUN Creatinine Ratio 11.3 (6-22); Bilirubin Total 0.9 mg/dL (0.2-1.3); Blood Urea Nitrogen 7 mg/dL (9-20); Calcium 9.4 mg/dL (8.4-10.2); Carbon Dioxide 21 mmol/L (22-32); Chloride 100 mmol/L (98-107); Estimated Glomerular Filt Rate > 60 mL/min (>60); Globulin 3.6 g/dL (1.7-4.1); Glucose 105 mg/dL (80-110); HEMOLYSIS < 15 (0-50); Sodium 137 mmol/L (137-145); Total Protein 8.3 g/dL (6.3-8.2)
[2024-01-24] MEDS: ONDANSETRON 4 MG/2 ML INJ IV (10:41)
[2024-01-24 10:47] LABS: Ethanol (ETOH) < 10 mg/dL
[2024-01-24 10:54] LABS: Phenytoin / Dilantin 9.9 ug/mL (10-20)
[2024-01-24 10:59] LABS: Ammonia (NH3) < 9 umol/L (9-30)
[2024-01-24] MEDS: AMLODIPINE 5 MG TABLET PO (11:01)
[2024-01-24] MEDS: SODIUM CHLORIDE 0.9% 1,000 ML 1000 ML IV (11:01)
[2024-01-24] MEDS: LORazepam 2 MG/ML INJ IV (11:45)
[2024-01-24] MEDS: FOSPHENYTOIN IV (12:10)
[2024-01-24] MEDS: SODIUM CHLORIDE 0.9% IV (12:10)
--- NOTE | 2024-01-24 13:44 | PC.NURSE ---
patient given clear ensure and pb&J sandwich, drank 2 sips of ensure with RN holding cup. [place] placed in patients hand and patient encouraged to eat and drnk. Patient verbalized ok, Returned to patient room and no bites taken from sandwich; Again encouraged patient to eat and drink, Patient states no thanks Im ok. Encouraged patient to eat and drink some please but patient continues to decline PO intake at this time. Drink and sandwhiches remain at bedside.
--- NOTE | 2024-01-24 14:12 | PC.NURSE ---
Asked by YE Rose to assist pt with ambulation trial. pt not following directions at this time, YE Rose aware.
--- NOTE | 2024-01-24 15:25 | PC.NURSE ---
Mo see phone # under contacts coming to give patient ride home.
== END 2024-01-24 15:45 | disposition home or self-care (01) ==
PROVIDERS: Emergency Provider Emergency Medicine; Family Provider Internal Medicine; PCP Family Medicine
DX: G40.909 Epilepsy, unspecified, not intractable, without status epilepticus (principal); R07.9 Chest pain, unspecified; M25.521 Pain in right elbow; W19.XXXA Unspecified fall, initial encounter
CPT/HCPCS: 36415; 70450; 71045; 73080; 80053; 80185; 80320; 82140; 85025; 85610; 85730; 93005; 93010; 96365; 96367; 96375; 99285; J2060; J2405; Q2009

== ENCOUNTER 2024-05-15 13:31 | Inpatient (IN) | payer MEDICARE, SELFPAY ==
[2023-12-01 04:59] VITALS: BMI 23.2
[2024-05-15] VITALS (31 sets, daily range): BP systolic 69–170; BP diastolic 48–112; PULSE 104–120; RESP 0–25; TEMP 36.8–36.9; O2SAT 94–100
--- NOTE | 2024-05-15 | DI.RAD.S_ITS ---
5PROCEDURE: XR CHEST 1V INDICATIONS: TUBE PLACEMENT TECHNIQUE: One view of the chest was acquired. COMPARISON: [facility], CT, CT ANGIO CHEST PE PROTOCOL, 12/01/2023, 1:45. [facility], CR, XR CHEST 1V, 11/30/2023, 23:45. [facility], CR, XR CHEST 1V, 01/24/2024, 10:17. FINDINGS: Surgical changes and devices: An endotracheal tube is seen, with the tip 2.5 cm above the julianne. Cervical spine fixation hardware is partially seen Lungs and pleura: An incomplete inspiratory result is noted, causing a crowded appearance to the lung markings. No focal infiltrates are seen. No pneumothorax or significant pleural effusions are seen. Mediastinum: Mediastinal contours appear normal. Heart size is normal. Bones and chest wall: Age-appropriate bony degenerative changes are seen. No suspicious bony lesions. Overlying soft tissues appear unremarkable. IMPRESSION: The tip of the endotracheal tube is seen 2.5 cm above the julianne. Dictated by: Candido Hopson M.D. on 05/15/2024 at 12:59 Approved by: Candido Hopson M.D. on 05/15/2024 at 13:00
--- NOTE | 2024-05-15 13:37 | DI.CT.S_ITS ---
PROCEDURE: CT HEAD/BRAIN WO CON INDICATIONS: seizure, altered mental TECHNIQUE: Noncontrast 4.5 mm thick angled axial sections acquired from the foramen magnum to the vertex, with coronal and sagittal reformats. For radiation dose reduction, the following was used: automated exposure control, adjustment of mA and/or kV according to patient size. COMPARISON: [facility], CT, CT CERVICAL SPINE WO CON, 05/15/2024, 13:43. [facility], CT, CT HEAD/BRAIN WO CON, 01/24/2024, 10:42. FINDINGS: Image quality: This examination is mildly limited by involuntary motion artifact. CSF spaces: Basal cisterns are patent. No extra-axial fluid collections. The ventricles are symmetric in size and shape. Brain: No intracranial bleeds or masses. There is cerebral volume loss for age, with resultant ventricular and sulcal prominence. There are periventricular and deep white matter chronic small vessel ischemic changes. There is intracranial internal carotid artery atherosclerosis. Skull and face: Calvarium and visualized facial bones appear intact, without suspicious lesions. Sinuses: Visualized sinuses and mastoids are clear. IMPRESSION: No imaging explanation is found for this patient's presenting symptoms. To the limits of this noncontrast study, no findings of intracranial masses or mass effect can be seen. No acute intracranial hemorrhage is seen. Dictated by: Candido Hopson M.D. on 05/15/2024 at 13:47 Approved by: Candido Hopson M.D. on 05/15/2024 at 13:48
--- NOTE | 2024-05-15 13:37 | DI.CT.S_ITS ---
PROCEDURE: CT CERVICAL SPINE WO CON INDICATIONS: seizure, altered mental TECHNIQUE: Noncontrast 3 mm thick sections acquired from the skull base to the T4 level. Sagittal and coronal reformats were then constructed. For radiation dose reduction, the following was used: automated exposure control, adjustment of mA and/or kV according to patient size. COMPARISON: [facility], CT, CT HEAD/BRAIN WO CON, 05/15/2024, 13:43. [facility], CT, CT CERVICAL SPINE WO CON, 11/10/2023, 12:40. FINDINGS: Image quality: Excellent. Bones: No fractures or dislocations. Visualized superior ribs are intact. Anterior fixation hardware can be seen C5 through C7. There is a corpectomy with fibular strut graft seen at C6, with oblique angulation, which is unchanged compared to the prior examination. Generalized degenerative changes are seen. Soft tissues: Prevertebral soft tissues are normal in thickness. No paravertebral hematomas. No apical pneumothoraces. Atherosclerotic calcification is noted. An endotracheal tube is seen. IMPRESSION: Negative for acute fracture. Stable postoperative change. Underlying degenerative change seen. Endotracheal tube noted. Dictated by: Candido Hopson M.D. on 05/15/2024 at 13:48 Approved by: Candido Hopson M.D. on 05/15/2024 at 13:50
--- NOTE | 2024-05-15 13:45 | ED.AMS ---
HPI - Altered Mental Status General Chief Complaint: Unresponsive Stated Complaint: Unresponsive, Seizure Time Seen by Provider: 05/15/24 13:36 Source: EMS, old records reviewed and other ([facility] DRIVER) History of Present Illness HPI narrative: 68-year-old male history of alcohol use disorder withdrawal related seizures, hyponatremia, heart failure who presents with EMS last seen 3 days ago neighbor heard a thump in the last day. They found him on the floor alert but did not know his name, where he was unable to give any information. Patient had what sounds like seizure activity for 1-2 minutes received Versed in the field. Patient has a reported have seizure disorder and take a sat no other medical history available. Glucose was 107 in the field. Pressures were soft with the initial of 70 in the not able to palpate. Patient had push dose epinephrine x2, ketamine and was intubated in the field 26 at the teeth with a an 8 0 ET tube. Patient's post intubation pressure was improved at 1:44 a.m. systolic. Patient never regained consciousness but did not have any additional seizure activity. Related Data Home Medications Medication Instructions Recorded Confirmed amlodipine 5 mg tablet 5 mg PO DAILY 12/18/23 12/18/23 atorvastatin 80 mg tablet 80 mg PO BEDTIME 12/18/23 12/18/23 levetiracetam 500 mg tablet 500 mg PO BID 12/18/23 12/18/23 olanzapine 5 mg tablet 2.5 mg PO TID 12/18/23 12/18/23 Previous Rx's Medication Instructions Recorded phenytoin sodium extended 100 mg 300 mg (3 x 100 mg) PO BID #180 12/18/23 capsule (Dilantin Extended) caps Allergies Allergy/AdvReac Type Severity Reaction Status Date / Time meperidine [MEPERIDINE] AdvReac Unknown Vomiting Verified 01/24/24 10:14 Review of Systems Review of Systems ROS Unobtainable: Unobtainable due to mental status/LOC Patient History Medical History Cognitive deficits Chronic hyponatremia Left elbow fracture Broken neck Multiple falls Cervical spondylosis with myelopathy Marijuana dependence Osteoarthritis Memory loss Osteoarthrosis Epilepsy, unspecified, not intractable, without status epilepticus Alcohol dependence, uncomplicated Surgical History History of neck surgery History of back surgery H/O foot surgery H/O thumb surgery History of esophagogastroduodenoscopy (EGD) History of colonoscopy Family History Father Cancer Aneurysm Mother Cancer Social History marital status: unknown household members: none lives independently: Yes housing: other ([facility]) Smoking Status: Former smoker alcohol intake: current Smoking Status: Former smoker tobacco type: cigarettes alcohol intake frequency: 3 or more drinks per day Alcohol type: beer and hard liquor Exam Narrative Exam Narrative: GEN: Cachectic ill-appearing elderly male, intubated, nonresponsive. HEENT: Atraumatic, pupils are pinpoint bilaterally, extraocular movements are intact, nares are clear, TMs are clear with no fluid, there is no conjunctival pallor. Throat is clear without any exudates, erythema, tonsillar enlargement or uvular deviation HEART: Regular rate and rhythm without murmur, clicks, rubs. Radial pulse present bilateral upper extremities. LUNGS:Lungs clear to auscultation, no wheezes, rales, crackles, chest moves symmetrically, breath sounds equal bilaterally with BVM. ABD:bowel sounds normal, soft, non-tender, no guarding, rebound, rigidity, no masses noted, no hepatosplenomegaly MSCL: Non-tender, no movement painful stimuli. NEURO:CN 2-12 intact Initial Vital Signs Initial Vital Signs: Vital Signs Pulse Rate 117 H 05/15/24 13:38 Respiratory Rate 8 L 05/15/24 13:38 Scores GCS Tima coma scale eye opening: None Tima coma scale verbal response: None [place] coma scale motor response: None Tima coma scale total score: 3 Course Orders Ordered: ED Orders 05/15/24 13:36 Acetaminophen Stat Ammonia (NH3) Stat Blood Culture Stat Comprehensive Metabolic Panel Stat Ethanol (ETOH) Stat Lactate (Lactic Acid) Stat Osmolality, Serum Stat PTT Partial Thromboplastin Eduar Stat Prolactin Stat Prothrombin Time INR Stat Salicylate Stat Thyroid Stimulating Hormone Stat Urinalysis and Microscopic Stat Urine Culture Stat Urine Drug Screen, Rapid Stat EKG-12 Lead Stat 05/15/24 13:37 CT cervical spine wo con Stat CT head/brain wo con Stat 05/15/24 13:40 Complete Blood Count AUTO DIFF Stat Acetaminophen (Acetaminophen 325 Mg Tablet) 650 mg PO Q6H PRN PRN Reason: Fever/Mild Pain (1-3) Fentanyl (Fentanyl 100 Mcg/2 Ml Inj) 50 mcg IV Q1H PRN PRN Reason: Pain, Severe (7-10) Last Admin: 05/15/24 15:06 Dose: 50 mcg Documented By: DELL Folic Acid (Folic Acid 1 Mg Tablet) 1 mg PO DAILY [facility] Midazolam HCl 50 mg/ Dextrose 50 mls @ 5 mls/hr IV TITRATE PRN; Protocol PRN Reason: Sedation Last Titration: 05/15/24 15:05 Dose: 0 mg/hr, 0 mls/hr Documented By: Titration: 05/15/24 14:46 Dose: 7 mg/hr, 7 mls/hr Documented By: Titration: 05/15/24 14:31 Dose: 6 mg/hr, 6 mls/hr Documented By: Admin: 05/15/24 14:23 Dose: 5 mg/hr, 5 mls/hr Documented By: DELL Levetiracetam 500 mg/ Sodium (Chloride) 105 mls @ 420 mls/hr IV Q12H BELKIS Last Admin: 05/15/24 16:20 Dose: 420 mls/hr Documented By: DELL Lorazepam (Lorazepam 2 Mg/Ml Inj) 0 mg IV CIWAPRN PRN; Protocol PRN Reason: Alcohol Withdrawal Multivitamins (Multivitamin 1 Tablet) 1 tab PO DAILY [facility] Oxycodone HCl (Oxycodone Ir 5 Mg Tablet) 5 mg PO Q3H PRN PRN Reason: Pain, Moderate (4-6) Thiamine HCl (Thiamine 100 Mg Tablet) 100 mg PO DAILY BELKIS Stop: 05/19/24 09:01 Discontinued Medications Sodium Chloride (Normal Saline 0.9%) 1,000 mls @ 1,000 mls/hr IV BOLUS ONE Stop: 05/15/24 14:35 Last Infusion: 05/15/24 15:36 Dose: Infused Documented By: Admin: 05/15/24 14:39 Dose: 1,000 mls/hr Documented By: DELL Phenobarbital (Phenobarbital 65 Mg/Ml Vial) 260 mg IV NOW ONE Stop: 05/15/24 13:44 Last Admin: 05/15/24 14:10 Dose: 260 mg Documented By: GW Vital Signs Vital signs: Vital Signs - 8 hr 05/15/24 13:38 05/15/24 13:50 05/15/24 13:50 Pulse Rate 117 H 118 H Respiratory Rate 8 L 17 Blood Pressure 69/48 L Pulse Oximetry 97 Oxygen Delivery Method Oxygen Flow Rate 05/15/24 13:57 05/15/24 14:00 05/15/24 14:15 Pulse Rate 120 H 116 H 115 H Respiratory Rate 18 16 16 Blood Pressure 70/48 L Pulse Oximetry 94 100 100 Oxygen Delivery Method Mechanical Ventilation Oxygen Flow Rate 05/15/24 14:15 05/15/24 14:20 05/15/24 14:20 Pulse Rate 115 H Respiratory Rate 18 Blood Pressure 138/89 135/84 Pulse Oximetry 100 Oxygen Delivery Method Oxygen Flow Rate 05/15/24 14:25 05/15/24 14:25 05/15/24 14:30 Pulse Rate 112 H Respiratory Rate 23 Blood Pressure 135/83 135/86 Pulse Oximetry 100 Oxygen Delivery Method Oxygen Flow Rate 05/15/24 14:30 05/15/24 14:35 05/15/24 14:35 Pulse Rate 118 H 119 H Respiratory Rate 25 H 23 Blood Pressure 128/81 Pulse Oximetry 100 100 Oxygen Delivery Method Mechanical Ventilation Oxygen Flow Rate 05/15/24 14:41 05/15/24 14:41 05/15/24 14:45 Pulse Rate 115 H 112 H Respiratory Rate 21 18 Blood Pressure 121/86 Pulse Oximetry 100 100 Oxygen Delivery Method Mechanical Ventilation Oxygen Flow Rate 05/15/24 14:45 05/15/24 14:51 05/15/24 14:51 Pulse Rate 109 H Respiratory Rate 20 Blood Pressure 141/92 H 140/96 H Pulse Oximetry 100 Oxygen Delivery Method Oxygen Flow Rate 05/15/24 14:55 05/15/24 14:55 05/15/24 15:00 Pulse Rate 109 H Respiratory Rate 19 Blood Pressure 156/94 H 156/97 H Pulse Oximetry 100 Oxygen Delivery Method Mechanical Ventilation Oxygen Flow Rate 05/15/24 15:00 05/15/24 15:05 05/15/24 15:05 Pulse Rate 108 H 111 H Respiratory Rate 22 24 Blood Pressure 151/92 H Pulse Oximetry 100 95 Oxygen Delivery Method Room Air Oxygen Flow Rate 05/15/24 15:10 05/15/24 15:10 05/15/24 15:15 Pulse Rate 109 H Respiratory Rate 14 Blood Pressure 143/85 H 143/83 H Pulse Oximetry 97 Oxygen Delivery Method Room Air Oxygen Flow Rate 05/15/24 15:15 05/15/24 15:20 05/15/24 15:20 Pulse Rate 106 H 106 H Respiratory Rate 21 21 Blood Pressure 151/89 H Pulse Oximetry 96 98 Oxygen Delivery Method Nasal Cannula Oxygen Flow Rate 2 05/15/24 15:25 05/15/24 15:25 05/15/24 15:29 Pulse Rate 106 H 106 H Respiratory Rate 18 21 Blood Pressure 150/94 H Pulse Oximetry 96 97 Oxygen Delivery Method Nasal Cannula Oxygen Flow Rate 2 05/15/24 15:30 05/15/24 15:30 05/15/24 15:35 Pulse Rate 106 H Respiratory Rate 18 Blood Pressure 154/91 H 159/92 H Pulse Oximetry 98 Oxygen Delivery Method Oxygen Flow Rate 05/15/24 15:35 05/15/24 15:40 05/15/24 15:40 Pulse Rate 106 H 106 H Respiratory Rate 21 19 Blood Pressure 162/95 H Pulse Oximetry 97 97 Oxygen Delivery Method Oxygen Flow Rate 05/15/24 15:45 05/15/24 15:45 05/15/24 15:50 Pulse Rate 107 H Respiratory Rate 23 Blood Pressure 159/98 H 160/103 H Pulse Oximetry 97 Oxygen Delivery Method Oxygen Flow Rate 05/15/24 15:50 Pulse Rate 109 H Respiratory Rate 21 Blood Pressure Pulse Oximetry 97 Oxygen Delivery Method Oxygen Flow Rate MDM - Altered Mental Status Lab Data 05/15/24 13:40 Labs: Lab Results 05/15/24 Range/Units 13:40 WBC 16.7 H (4.5-11.0) X10^3/uL RBC 4.61 (4.5-5.9) X10^6/uL Hgb 14.5 (13.5-17.5) g/dL Hct 44.7 (41-53) % MCV 96.9 (80-100) fL MCH 31.5 (26-34) PG MCHC 32.5 (30-36) % RDW 15.3 H (11.6-14.8) % Plt Count 145 L (150-400) X10^3/uL Neut % (Auto) 78.1 H (50-75) % Lymph % (Auto) 12.3 L (25-40) % [place] % (Auto) 9.3 (3-14) % Eos % (Auto) 0.1 L (2-4) % Baso % (Auto) 0.2 (0-2) % Neut # (Auto) 18931 H (4958-3701) /uL Lymph # (Auto) 2100 (4184-7617) /uL [place] # (Auto) 1600 H (0-900) /uL Eos # (Auto) 0 (0-450) /uL Baso # (Auto) 0 (0-100) /uL MDM Narrative Medical decision making narrative: 68-year-old male with a history of alcohol use disorder, prior withdrawal seizures and known seizure disorder who presents altered for EMS had active seizure in front of them received Versed his hypotensive intubated in the field. Patient arrived here did find that he has a POLST form that notes he was comfort measures DNR/DNI reached out to his DPOA Layo Dear who confirms this he was agreeable to additional workup I he will hopefully be here in the next hour at this time we will I keep patient intubated until he was present but discussed potentially extubating after arrival on we will not perform any CPR or pressors which Layo states is appropriate. He notes patient would not want to be intubated. Patient has 2 IOs present but we will hold off on additional attempts with central line until his DPOA is present as patient was comfort measures. Head CT no acute change CT cervical spine negative for acute fracture stable postoperative change underlying degenerative change and a take oral tube noted. Chest x-ray tip of the endotracheal tube 2.5 cm above julianne Attempted lab draw but unable to obtain. Patient received 70 mg of rocuronium in the field, 150 mg of ketamine and 5 mg of Versed with EMS prior to arrival. Patient was given Versed for sedation as he was intubated as well as phenobarb for potential withdrawal symptoms as he was would both be appropriate for comfort measures. Patient's DPOA Layo Dear, is present after discussion he was agreeable to extubation states patient would only want comfort measures has expressed he is comfortable being with the end of his life states he has started drinking again and has had worsening episodes of seizures. He stated with the patient for some time postextubation respiratory status did not decline but he was agreeable holding off any of the additional labs or workup at this time with goal for comfort. Spoke with hospitalist Dr. Brenner, who accepts. Plan for comfort measures patient has 2 Ios which are working but we will call PICC line service for midline is unable to get access and patient is comfort measures somewhat placed central line. Discussed patient's vitals have overall been appropriate he was not really woke enough but he was started to blink a little bit could possibly be postictal but patient is paperwork as well as his DPOA both note he was comfort measures. Discharge Plan Departure Patient Disposition: Admitted As Inpatient Clinical Impression: Altered mental status, Seizure Admit Date/Time: 05/15/24 15:54 Admit Provider: Annika Brenner
[2024-05-15 13:51] LABS: Add Manual Diff / Slide Review NO; Basophils Absolute Auto 0 /uL (0-100); Basophils Percent Auto 0.2 % (0-2); Eosinophils Absolute Auto 0 /uL (0-450); Eosinophils Percent Auto 0.1 % (2-4); Hematocrit 44.7 % (41-53); Hemoglobin 14.5 g/dL (13.5-17.5); Lymphocytes Absolute Auto 2100 /uL (1100-4500); Lymphocytes Percent Auto 12.3 % (25-40); Mean Corpuscular HGB Conc 32.5 % (30-36); Mean Corpuscular Hemoglobin 31.5 PG (26-34); Mean Corpuscular Volume 96.9 fL (80-100); Monocytes Absolute Auto 1600 /uL (0-900); Monocytes Percent Auto 9.3 % (3-14); Neutrophils Absolute Auto 13000 /uL (1500-7000); Neutrophils Percent Auto 78.1 % (50-75); Platelet Count 145 X10^3/uL (150-400); Red Blood Cell Count 4.61 X10^6/uL (4.5-5.9); Red Cell Distribution Width 15.3 % (11.6-14.8); White Blood Cell Count 16.7 X10^3/uL (4.5-11.0)
[2024-05-15] MEDS: PHENobarbital 65 MG/ML VIAL 260 MG IV (14:10)
[2024-05-15] MEDS: MIDAZOLAM 50 MG in DEXTROSE 5 % IN WATER 40 ML IV (14:23)
[2024-05-15] MEDS: SODIUM CHLORIDE 0.9% 1,000 ML 1000 ML IV (14:39)
[2024-05-15] MEDS: fentaNYL 100 MCG/2 ML INJ 50 MCG IV (15:06)
--- NOTE | 2024-05-15 15:17 | PC.NURSE ---
1500-DPRADHA Vasques at the bedside talking with Dr Santiago and discussing plan of care. Layo agrees that comfort care and extubation is most in line with what patient would want. Respiratory therapy called and patient extubated at 1503, patient is coughing, responds to pain, does not want to be suctioned, and does not follow commands. Dr Santiago verbal orders to this RN q1hr fentanyl. Patient placed on 2L NC for comfort
[2024-05-15] MEDS: levETIRAcetam 500 MG in SODIUM CHLORIDE 0.9% 100 ML 420 MG IV (16:20)
--- NOTE | 2024-05-15 20:41 | PM.HP.1 ---
History of Present Illness History of Present Illness Chief complaint: Unresponsive, Seizure Narrative: 67-year-old male with alcohol dependence, seizure disorder, cognitive deficits, marijuana dependence, hypertension, hyperlipidemia who was brought in to the see department today unresponsive. He was last known to be at his baseline 3 days ago. Today, reportedly a neighbor heard a thump and found him on the floor. He was alert but did not know his name and was unable to provide any additional information. EMS was contacted and on arrival noted seizure activity for 1-2 minutes. He received Versed. Initial blood pressures were low but after receiving Versed they were subsequently lower. He received epinephrine x2 glucose was 107, he received ketamine as well and was intubated in the field. He did have poor IV access and to intra osseous lines were placed. He was subsequently transferred to the emergency department for further care. After arrival to the emergency department, his POLST form was found which revealed he is DNR/DNI, comfort care. They were able to contact the patient's DPOA who reiterated that patient would not want intubation. DPOA was agreeable to additional workup but did not want pressors or CPR. He also verified the patient would not wish to remain intubated. Patient underwent a head CT which showed no acute changes as well as cervical spine CT which showed no acute fractures. Lab was attempted but labs could not be obtained. Patient was given phenobarbital for potential alcohol withdrawal symptoms. After initial imaging resulted, the POA was contacted again and agree to extubation with potential comfort measures. He did report the patient recently had begun drinking again and having worsening seizures. The patient remained reasonably stable post extubation and DPLayo GARCIA, requested no additional labs or workup, but was receptive to admission and additional monitoring for either a post ictal state that improves or comfort care if patient declined. At the time of my evaluation, patient is somnolent but answering questions. He tells me he was walking in the [place] at work and hit his eye on a piece of metal sticking out. He tells me that he subsequently fell and that is how he got his current black eye. He tells me he is drinking approximately 7 beers daily. He is unable to verify if he was having any withdrawal symptoms before coming into the hospital. He is also unable to tell me when his last seizure was. He is also unable to tell me when his last drink was. He is able to tell me he is in [place]. He also repeatedly says something about [place]. He is disoriented but responsive and talkative. He was able to consent to having a midline IV placed for his seizure medications such that he could have the intraosseous lines removed. [facility] Medical History Cognitive deficits Chronic hyponatremia Left elbow fracture Broken neck Multiple falls Cervical spondylosis with myelopathy Marijuana dependence Osteoarthritis Memory loss Osteoarthrosis Epilepsy, unspecified, not intractable, without status epilepticus Alcohol dependence, uncomplicated Surgical History History of neck surgery History of back surgery H/O foot surgery H/O thumb surgery History of esophagogastroduodenoscopy (EGD) History of colonoscopy Family History Father Cancer Aneurysm Mother Cancer Social History marital status: unknown household members: none lives independently: Yes housing: other ([facility]) Smoking Status: Former smoker alcohol intake: current Meds Home Medications and Allergies Home Medications Medication Instructions Recorded Confirmed Type amlodipine 5 mg tablet 5 mg PO DAILY 12/18/23 12/18/23 History atorvastatin 80 mg tablet 80 mg PO BEDTIME 12/18/23 12/18/23 History levetiracetam 500 mg tablet 500 mg PO BID 12/18/23 12/18/23 History olanzapine 5 mg tablet 2.5 mg PO TID 12/18/23 12/18/23 History phenytoin sodium extended 100 mg 300 mg (3 x 100 mg) PO BID #180 12/18/23 12/18/23 Rx capsule (Dilantin Extended) caps Allergies Allergy/AdvReac Type Severity Reaction Status Date / Time meperidine [MEPERIDINE] AdvReac Unknown Vomiting Verified 01/24/24 10:14 Review of Systems Review of Systems Narrative: Unable to obtain due to encephalopathy Exam Vital Signs (past 8 hours): - 05/15/24 13:38 05/15/24 13:50 05/15/24 13:50 Temperature Pulse Rate 117 H 118 H Respiratory Rate 8 L 17 Blood Pressure 69/48 L Pulse Oximetry 97 Oxygen Delivery Method Oxygen Flow Rate 03/29/25 13:57 05/15/24 14:00 05/15/24 14:15 Temperature Pulse Rate 120 H 116 H 115 H Respiratory Rate 18 16 16 Blood Pressure 70/48 L Pulse Oximetry 94 100 100 Oxygen Delivery Method Mechanical Ventilation Oxygen Flow Rate 05/15/24 14:15 05/15/24 14:20 05/15/24 14:20 Temperature Pulse Rate 115 H Respiratory Rate 18 Blood Pressure 138/89 135/84 Pulse Oximetry 100 Oxygen Delivery Method Oxygen Flow Rate 05/15/24 14:25 05/15/24 14:25 05/15/24 14:30 Temperature Pulse Rate 112 H Respiratory Rate 23 Blood Pressure 135/83 135/86 Pulse Oximetry 100 Oxygen Delivery Method Oxygen Flow Rate 05/15/24 14:30 05/15/24 14:35 05/15/24 14:35 Temperature Pulse Rate 118 H 119 H Respiratory Rate 25 H 23 Blood Pressure 128/81 Pulse Oximetry 100 100 Oxygen Delivery Method Mechanical Ventilation Oxygen Flow Rate 05/15/24 14:41 05/15/24 14:41 05/15/24 14:45 Temperature Pulse Rate 115 H 112 H Respiratory Rate 21 18 Blood Pressure 121/86 Pulse Oximetry 100 100 Oxygen Delivery Method Mechanical Ventilation Oxygen Flow Rate 05/15/24 14:45 05/15/24 14:51 05/15/24 14:51 Temperature Pulse Rate 109 H Respiratory Rate 20 Blood Pressure 141/92 H 140/96 H Pulse Oximetry 100 Oxygen Delivery Method Oxygen Flow Rate 05/15/24 14:55 05/15/24 14:55 05/15/24 15:00 Temperature Pulse Rate 109 H Respiratory Rate 19 Blood Pressure 156/94 H 156/97 H Pulse Oximetry 100 Oxygen Delivery Method Mechanical Ventilation Oxygen Flow Rate 05/15/24 15:00 05/15/24 15:05 05/15/24 15:05 Temperature Pulse Rate 108 H 111 H Respiratory Rate 22 24 Blood Pressure 151/92 H Pulse Oximetry 100 95 Oxygen Delivery Method Room Air Oxygen Flow Rate 05/15/24 15:10 05/15/24 15:10 05/15/24 15:15 Temperature Pulse Rate 109 H Respiratory Rate 14 Blood Pressure 143/85 H 143/83 H Pulse Oximetry 97 Oxygen Delivery Method Room Air Oxygen Flow Rate 05/15/24 15:15 05/15/24 15:20 05/15/24 15:20 Temperature Pulse Rate 106 H 106 H Respiratory Rate 21 21 Blood Pressure 151/89 H Pulse Oximetry 96 98 Oxygen Delivery Method Nasal Cannula Oxygen Flow Rate 2 05/15/24 15:25 05/15/24 15:25 05/15/24 15:29 Temperature Pulse Rate 106 H 106 H Respiratory Rate 18 21 Blood Pressure 150/94 H Pulse Oximetry 96 97 Oxygen Delivery Method Nasal Cannula Oxygen Flow Rate 2 05/15/24 15:30 05/15/24 15:30 05/15/24 15:35 Temperature Pulse Rate 106 H Respiratory Rate 18 Blood Pressure 154/91 H 159/92 H Pulse Oximetry 98 Oxygen Delivery Method Oxygen Flow Rate 05/15/24 15:35 05/15/24 15:40 05/15/24 15:40 Temperature Pulse Rate 106 H 106 H Respiratory Rate 21 19 Blood Pressure 162/95 H Pulse Oximetry 97 97 Oxygen Delivery Method Oxygen Flow Rate 05/15/24 15:45 05/15/24 15:45 05/15/24 15:50 Temperature Pulse Rate 107 H Respiratory Rate 23 Blood Pressure 159/98 H 160/103 H Pulse Oximetry 97 Oxygen Delivery Method Oxygen Flow Rate 05/15/24 15:50 05/15/24 16:00 05/15/24 16:00 Temperature Pulse Rate 109 H 107 H Respiratory Rate 21 21 Blood Pressure 163/107 H Pulse Oximetry 97 97 Oxygen Delivery Method Oxygen Flow Rate 05/15/24 16:15 05/15/24 16:15 05/15/24 16:30 Temperature Pulse Rate 108 H Respiratory Rate 16 Blood Pressure 170/108 H 146/91 H Pulse Oximetry 97 Oxygen Delivery Method Oxygen Flow Rate 05/15/24 16:30 05/15/24 18:00 Temperature 98.4 F Pulse Rate 104 H 106 H Respiratory Rate 19 18 Blood Pressure 163/102 H Pulse Oximetry 98 94 Oxygen Delivery Method Nasal Cannula Oxygen Flow Rate 2 0 Oxygen Delivery Method Nasal Cannula Oxygen Flow Rate 0 Narrative Exam Narrative: GEN: Disheveled middle-aged male, drowsy and oriented to self, no acute distress HEENT: Normocephalic, face symmetric, pupils equal round reactive to light, extraocular movements intact, periorbital bruising to the right eye, small laceration to the right inferior eyebrow area sclerae anicteric, conjunctiva clear, nares patent, oropharynx reveals an intact soft and hard palate with dry mucous membranes, dentition is fair NECK: Supple, no lymphadenopathy, thyroid without enlargement or nodularity, carotids no bruits CHEST: Respiratory excursions symmetric, clear to auscultation bilaterally CV: Regular rate and rhythm, no murmurs, rubs, gallops, PMI nondisplaced ABD: Soft, nontender, nondistended, bowel sounds present in all 4 quadrants, no organomegaly or masses appreciated EXTR: Warm, well perfused, no clubbing/cyanosis/edema SKIN: Warm and dry, without rash NEURO: Oriented x1, nonfocal PSYCH: Unable to assess due to encephalopathy Objective Labs 05/15/24 13:40 Labs: Laboratory Results - last 24 hr 05/15/24 13:40 WBC 16.7 H RBC 4.61 Hgb 14.5 Hct 44.7 MCV 96.9 MCH 31.5 MCHC 32.5 RDW 15.3 H Plt Count 145 L Neut % (Auto) 78.1 H Lymph % (Auto) 12.3 L [place] % (Auto) 9.3 Eos % (Auto) 0.1 L Baso % (Auto) 0.2 Neut # (Auto) 31987 H Lymph # (Auto) 2100 [place] # (Auto) 1600 H Eos # (Auto) 0 Baso # (Auto) 0 Assessment & Plan Assessment & Plan narrative: 1. Acute metabolic encephalopathy 2. Witnessed seizure 3. Possible alcohol withdrawal 4. Known seizure disorder 5. Leukocytosis 6. Thrombocytopenia Patient was found down after unknown number of days, last seen to be baseline 3 days ago. He suffered a witnessed seizure in the field. He did receive Versed and phenobarbital. He does have a known seizure disorder for which he is evidently on Keppra and quite possibly phenytoin. Unknown when his last seizure was. He does also have an alcohol use history with withdrawal seizures as well. Last reportedly to be drinking 7-10 beers or more daily. At presentation, he was intubated, but on arrival to the ER, his POLST form is on file and was noted that he is selected a DNR DNI comfort care status. He was subsequently extubated after discussion with his DPOA. He is being admitted for further monitoring. It appears his unresponsive state in the emergency department was due to his postictal status. He is more awake for me presently. Will admit and conservatively treat with IV antiepileptics. Will place on withdrawal protocol with CIWA scoring and lorazepam. His DPOA did not wish to pursue further labs or workup. This will be honored. Will monitor his progress over the next 24 hours. Code status DNR DNI Time-Based Coding :: [TOTAL MINUTES] spent with patient and on the chart (including review of chart, obtaining history, exam, reviewing outside data, placing orders, documenting exam and treatment plan, and counseling patient) on [DATE].
[2024-05-15] MEDS: OXYCODONE IR 5 MG TABLET PO (22:23)
[2024-05-16 00:35] VITALS: BP 146/92; PULSE 101; RESP 16; TEMP 36.9; O2SAT 97
[2024-05-16] MEDS: levETIRAcetam 500 MG in SODIUM CHLORIDE 0.9% 100 ML 420 MG IV ×2 (05:11→16:33)
--- NOTE | 2024-05-16 07:41 | P.PN_ITS ---
Subjective Subjective Interval history: Summary: Patient is a 68-year-old male with history of alcohol dependence and seizure. He presented with intoxication, seizure, and being found down. The patient was intubated in the field and then extubated after being discovered to be DNI. The patient is slowly improving and on Keppra. S: He was awake, in no distress. Confused. He can state that he was in [place] and lives in his apartment. Exam Vital Signs (past 8 hours): - 05/16/24 00:35 Temperature 98.4 F Pulse Rate 101 H Respiratory Rate 16 Blood Pressure 146/92 H Pulse Oximetry 97 Oxygen Flow Rate 0 Oxygen Delivery Method Nasal Cannula Oxygen Flow Rate 0 Narrative Exam Narrative: NAD, alert and oriented. Fluent speech. Slow speech. He was somewhat unkempt. No shaking. Lungs are clear, normal rate and effort. Heart is regular, no murmur gallop or rub. Abdomen is soft, non distended. Extremities are free of edema. Objective Imaging Multiple studies:: Radiologist's impression: Head CT: No imaging explanation is found for this patient's presenting symptoms. To the limits of this noncontrast study, no findings of intracranial masses or mass effect can be seen. No acute intracranial hemorrhage is seen. Cervical spine CT: Negative for acute fracture. Stable postoperative change. Underlying degenerative change seen. Endotracheal tube noted. Chest x-ray: The tip of the endotracheal tube is seen 2.5 cm above the julianne. Labs 05/15/24 13:40 Labs: Laboratory Results - last 24 hr 05/15/24 13:40 WBC 16.7 H RBC 4.61 Hgb 14.5 Hct 44.7 MCV 96.9 MCH 31.5 MCHC 32.5 RDW 15.3 H Plt Count 145 L Neut % (Auto) 78.1 H Lymph % (Auto) 12.3 L Assumption % (Auto) 9.3 Eos % (Auto) 0.1 L Baso % (Auto) 0.2 Neut # (Auto) 91599 H Lymph # (Auto) 2100 Assumption # (Auto) 1600 H Eos # (Auto) 0 Baso # (Auto) 0 PFSH Medical History Cognitive deficits Chronic hyponatremia Left elbow fracture Broken neck Multiple falls Cervical spondylosis with myelopathy Marijuana dependence Osteoarthritis Memory loss Osteoarthrosis Epilepsy, unspecified, not intractable, without status epilepticus Alcohol dependence, uncomplicated Surgical History History of neck surgery History of back surgery H/O foot surgery H/O thumb surgery History of esophagogastroduodenoscopy (EGD) History of colonoscopy Family History Father Cancer Aneurysm Mother Cancer Social History marital status: unknown household members: none lives independently: Yes housing: other ([facility]) Smoking Status: Former smoker alcohol intake: current Assessment & Plan Assessment & Plan narrative: Patient was found down after unknown number of days, last seen to be baseline 3 days ago. He suffered a witnessed seizure in the field. He did receive Versed and phenobarbital. He does have a known seizure disorder for which he is evidently on Keppra and quite possibly phenytoin. Unknown when his last seizure was. He does also have an alcohol use history with withdrawal seizures as well. Last reportedly to be drinking 7-10 beers or more daily. At presentation, he was intubated, but on arrival to the ER, his POLST form is on file and was noted that he is selected a DNR DNI comfort care status. He was subsequently extubated after discussion with his DPOA. He is being admitted for further monitoring. It appears his unresponsive state in the emergency department was due to his postictal status. He is more awake for me presently. Will admit and conservatively treat with IV antiepileptics. Will place on withdrawal protocol with CIWA scoring and lorazepam. His DPOA did not wish to pursue further labs or workup. This will be honored. Will monitor his progress over the next 24 hours. 1. Acute metabolic encephalopathy 2. Witnessed seizure 3. Possible alcohol withdrawal 4. Known seizure disorder 5. Leukocytosis 6. Thrombocytopenia PLAN: -CIWA. -Keppra. -No Extraordinary measures. -DNR DNI. MILES: 2-3 days. Time-Based Coding :: [TOTAL MINUTES] spent with patient and on the chart (including review of chart, obtaining history, exam, reviewing outside data, placing orders, documenting exam and treatment plan, and counseling patient) on [DATE].
[2024-05-16 08:00] VITALS: BP 130/87; PULSE 108; RESP 19; TEMP 37.2; O2SAT 93
[2024-05-16] MEDS: MULTIVITAMIN 1 TABLET 1 TAB PO (10:03)
[2024-05-16] MEDS: SODIUM CHLORIDE 0.9% FLUSH 10 ML IV ×2 (10:03→20:32)
[2024-05-16] MEDS: THIAMINE 100 MG TABLET PO (10:03)
[2024-05-16] MEDS: FOLIC ACID 1 MG TABLET PO (10:03)
--- NOTE | 2024-05-16 15:52 | CM.DANOTE ---
B DCP Assessment note pt is a 68yo M well known to . Admitted for originally comfort care after pt was intubated and then extubated when DNI paperwork was obtained by DPOA. found down in apartment for unknwn amount of time. hx of heavy ETOH use/withdrawals. PCP Noris Shipley Payer [facility] and Medicaid [employer] PIPE SUPERVISOR reviewed EMR. Hx of APS referrals- CM team will f/u if active or case close. (hx of Laurent Guerrero P [phone] as child support investigator Nov 2023). Hx of attempted placement- pt did not qualify for [facility], CM team will f/u Friday with pt's LT CM for current updates. in Oct 2023, pt needed to spend $2000 to qualify for Medicaid LTC. in Nov 2023, pt's financial worker talia Chappell Daniel P [phone] Per chart, pt lives alone in [facility]. Friends Layo/Adis Maldonado act as DPOAs. Hx of Geripsych placement at [facility] 11/11/23. ENZO due to grave disability, hx of SI statements. per chart, does not qualify for [facility] SNF/CGs. not VA connected. Per provider in morning rounds, pt perking up and no longer considered likely to pass here. CIWAs of 1-3 throughout day so far. CM team will f/u with pt/DPOAs/APS/DSHS/Comm Electronics Repair Technician Friday for DCP coordination. Anticipate return to home once medically stable vs LTC placement. f/u if new APS report/Geripsych placement indicated. RAFAEL Zelaya Discharge Planning/Care Management CM Discharge Assessment Start: 05/16/24 15:50 Freq: Status: Active Protocol: Document 05/16/24 15:50 SL (Rec: 05/16/24 15:52 Desktop) Discharge Planning Assessment Assigned Tank[place] RAFAEL Pascal DPOA/Assigned Designee Name mateusz Vasques/DPOA Contact Information [phone] Advance Directives? Yes Advance Directives on File No History Provided By Patient,Family Member,Medical Record Has Patient been admitted in last 30 No days? Prior Living Arrangements Apartment/Condo Household Members none Independent with ADL's No Is patient alert and oriented? No Needs Assistance With Meal Prep,Managing Medications ,Home Chores / Shopping Comment hx of Sameer Gates [facility] Electronics Repair Technician - [phone] need to confirm if Yolanda Owen [facility] - [phone] is still case making machine operator Comment Hx [facility]. Comment Patient in the process of LTC Medicaid application and placement at [facility]. Discharge Plan Home Transportation Arrangement Likely medicaid transport vs friend pov Review Status In Process Please Provide Date Initial DC 05/16/24 Assessment Was Performed Next Review Type Continued Stay Review
[2024-05-16] MEDS: OXYCODONE IR 5 MG TABLET PO (16:41)
--- NOTE | 2024-05-16 18:12 | PC.NURSE ---
Pt moved from rm 211 to 214 for better safety visualization. Pt attempting to climb out of bed, talking of snakes. Redirected and reoriented to place. Resting comfortably. Seizure pads in place, suction set up, bed alarm active, pt room close to nurse's station. Care ongoing.
[2024-05-16 20:00] VITALS: BP 165/98; PULSE 110; RESP 20; TEMP 36.4; O2SAT 97
[2024-05-17] VITALS: BP 152/92; PULSE 103; RESP 20; TEMP 36.4; O2SAT 96
[2024-05-17] MEDS: levETIRAcetam 500 MG in SODIUM CHLORIDE 0.9% 100 ML 420 MG IV ×2 (04:25→15:48)
[2024-05-17 06:54] VITALS: BP 149/93; PULSE 77; RESP 24; TEMP 36.4; O2SAT 98
--- NOTE | 2024-05-17 07:32 | PM.PN.1 ---
Subjective Subjective Interval history: S: Sleeping all morning. No medications given overnight. He was not able to provide a narrative as he was sleeping. Exam Vital Signs (past 8 hours): - 05/17/24 00:00 05/17/24 06:54 Temperature 97.5 F L 97.6 F Pulse Rate 103 H 77 Respiratory Rate 20 24 Blood Pressure 152/92 H 149/93 H Pulse Oximetry 96 98 Oxygen Flow Rate 0 0 Oxygen Delivery Method Nasal Cannula Oxygen Flow Rate 0 Narrative Exam Narrative: Sleeping and appears comfortable. Lungs are clear, normal rate and effort. Heart is regular, no murmur gallop or rub. Abdomen is soft, non distended. Extremities are free of edema. Objective Labs 05/15/24 13:40 [facility] Medical History Cognitive deficits Chronic hyponatremia Left elbow fracture Broken neck Multiple falls Cervical spondylosis with myelopathy Marijuana dependence Osteoarthritis Memory loss Osteoarthrosis Epilepsy, unspecified, not intractable, without status epilepticus Alcohol dependence, uncomplicated Surgical History History of neck surgery History of back surgery H/O foot surgery H/O thumb surgery History of esophagogastroduodenoscopy (EGD) History of colonoscopy Family History Father Cancer Aneurysm Mother Cancer Social History marital status: unknown household members: none lives independently: Yes housing: other ([facility]) Smoking Status: Former smoker alcohol intake: current Assessment & Plan Assessment & Plan narrative: 1. Acute metabolic encephalopathy 2. Witnessed seizure 3. Possible alcohol withdrawal 4. Known seizure disorder 5. Leukocytosis 6. Thrombocytopenia PLAN: -CIWA. -Keppra. -No Extraordinary measures. -monitor progress today. -DNR DNI. MILES: 2-3 days. Time-Based Coding :: [TOTAL MINUTES] spent with patient and on the chart (including review of chart, obtaining history, exam, reviewing outside data, placing orders, documenting exam and treatment plan, and counseling patient) on [DATE].
--- NOTE | 2024-05-17 12:57 | PC.NURSE ---
Addendum entered by Helena Kirby R.N. 05/17/24 16:08: CIWA is 4, patient having mild hallucinations and talking to people that are not there. He is polite and thankful and resting comfortably. Original Note: Patient has been sleeping most of the shift. BP is high at this time. Notified and he states to recheck it in a couple of hours. He has some skin tears, and abrasions, and bruising on his body, knees, and arms. Pt has not woken up long enough to be able to give him his medication. Brushed his hair, he was try to talk about some things that were not making sense. When patient is a bit more awake will give him his sq heparin dose.
[2024-05-17 13:12] VITALS: BP 164/119; PULSE 99; RESP 16; TEMP 36.2; O2SAT 98
--- NOTE | 2024-05-17 15:09 | DI.CT.S_ITS ---
PROCEDURE: CT HEAD/BRAIN WO CON INDICATIONS: AMS TECHNIQUE: Noncontrast 4.5 mm thick angled axial sections acquired from the foramen magnum to the vertex, with coronal and sagittal reformats. For radiation dose reduction, the following was used: automated exposure control, adjustment of mA and/or kV according to patient size. COMPARISON: [facility], CT, CT HEAD/BRAIN WO CON, 05/15/2024, 13:43. FINDINGS: Image quality: Diagnostic. CSF spaces: Basal cisterns are patent. No extra-axial fluid collections. The ventricles are symmetric in size and shape. Brain: No intracranial bleeds or masses. There is cerebral volume loss for age, with resultant ventricular and sulcal prominence. There are periventricular and deep white matter chronic small vessel ischemic changes. There is intracranial internal carotid artery atherosclerosis. Skull and face: Calvarium and visualized facial bones appear intact, without suspicious lesions. Sinuses: Visualized sinuses and mastoids are clear. IMPRESSION: No acute intracranial pathology. Dictated by: Gregory Wise M.D. on 05/17/2024 at 16:02 Approved by: Gregory Wise M.D. on 05/17/2024 at 16:03
--- NOTE | 2024-05-17 15:28 | CM.DPNOTE ---
DCP note PHOTOENGRAVING SKETCH MAKER reviewed EMR per RN notes, pt hallucinating snakes overnight. pt not A/O throughout day. per provdier, unsure if pt is going to keep perking up or if he is likely to pass here. the next few days will tell us more. PHOTOENGRAVING SKETCH MAKER attempted to meet with pt mult times today, not A/O for DCP conversation Met with 2nd DPOA Mo in room briefly. Mo reports pt was doing well at home prior to admission, unknown how much he' been drinking lately. pt had appt for Wed set up to establish with the [facility] put Mo plans to cancel it. Mo hopeful for updates with pt as the medical POC continues Per [facility] fast food supervisor Cora ([phone]) pt does not currently have a financial case packer and sealer. case closed in Nov due to pt having $2,000 over limit, needed to spend down. would need to submit new LTC melody. Per APS intake, assigned worker is Laurent Guerrero. PHOTOENGRAVING SKETCH MAKER spoke with Laurent, updated him on pt's current admission. (ph# [phone]). Laurent reports pt has been hard to communicate with, Laurent has not been able to meet pt or speak with DPOAs. Laurent plans to come to Wed if pt alert to speak with him. CM team will plan to keep APS updated. PHOTOENGRAVING SKETCH MAKER emailed Laurent med records from pt's stay at [facility] for APS's records. reports that pt is likely a good candidate for guardianship if non decisional. PHOTOENGRAVING SKETCH MAKER lvm with Don Solano senior supply chain analyst to update him on pt's admission. DCP will continue to follow closely. pending medical POC/if pt wakes up more or medically deteriorates. RAFAEL Zelaya
[2024-05-17] MEDS: SODIUM CHLORIDE 0.9% FLUSH 10 ML IV ×2 (15:49→20:46)
[2024-05-17] MEDS: HEPARIN 5,000 UNIT/ML VIAL 5000 UNIT SUBCUT ×2 (15:49→20:46)
[2024-05-17 15:50] VITALS: BP 160/100
[2024-05-17] MEDS: hydrALAZINE 20 MG/ML VIAL 10 MG IV (15:50)
[2024-05-17 15:51] LABS: Base Excess ABG -0.8 mmol/L (-2-3); Blood Gas Collection Site Right Radial; HCO3 ABG 24 mmol/L (23-27); Oxygen Saturation ABG 95 % (95-100); PCO2 ABG 40.1 mmHg (35-45); PO2 ABG 75 mmHg (80-100); TCO2 ABG 24 mmol/L (23-27); pH ABG 7.39 (7.35-7.45)
[2024-05-17 19:00] VITALS: BP 148/99; PULSE 127; RESP 22; TEMP 36.4; O2SAT 98
[2024-05-17 21:00] VITALS: PULSE 112; O2SAT 98
[2024-05-17] MEDS: SODIUM CHLORIDE 0.9% 1,000 ML 84 ML IV (21:45)
[2024-05-18] VITALS (8 sets, daily range): BP systolic 131–184; BP diastolic 40–107; PULSE 99–122; RESP 15–45; TEMP 36.6–36.8; O2SAT 91–97
[2024-05-18] MEDS: levETIRAcetam 500 MG in SODIUM CHLORIDE 0.9% 100 ML 420 MG IV (03:37)
--- NOTE | 2024-05-18 07:44 | PM.PN.1 ---
Subjective Subjective Interval history: Summary: Patient is a 68-year-old male with history of alcohol dependence and seizure. He presented with intoxication, seizure, and being found down. The patient was intubated in the field and then extubated after being discovered to be DNI. The patient is slowly improving and on Keppra. Hospital Course: 05/17: Somnolent. No WD symptoms. 05/17: sedated. Negative ABG and CT brain. 05/18: Some possible myoclonic twitching behavior was noted by the nurse early this morning. Raising the question of intermittent seizure activity. He has been on Keppra 500 IV q.12. S: Narrative not obtainable bolus he was not really answering questions but is tracking and following some simple commands. Exam Vital Signs (past 8 hours): Oxygen Delivery Method Room Air Oxygen Flow Rate 0 Narrative Exam Narrative: NAD, alert and oriented. Somnolent and a little responsive, follows commands. Unkempt. Lungs are clear, normal rate and effort. Heart is regular, no murmur gallop or rub. Abdomen is soft, non distended. Extremities are free of edema. Objective Imaging Brain CT 05/17:: Radiologist's impression: No acute intracranial pathology. Labs 05/15/24 13:40 Labs: Laboratory Results - last 24 hr 05/17/24 15:46 ABG Sample Site Right radial ABG pH 7.39 ABG pCO2 40.1 ABG pO2 75 L ABG HCO3 24 ABG Total CO2 24 ABG O2 Saturation 95 ABG Base Excess -0.8 Federico Test N/a FiO2 % 21.0 % [facility] Medical History Cognitive deficits Chronic hyponatremia Left elbow fracture Broken neck Multiple falls Cervical spondylosis with myelopathy Marijuana dependence Osteoarthritis Memory loss Osteoarthrosis Epilepsy, unspecified, not intractable, without status epilepticus Alcohol dependence, uncomplicated Surgical History History of neck surgery History of back surgery H/O foot surgery H/O thumb surgery History of esophagogastroduodenoscopy (EGD) History of colonoscopy Family History Father Cancer Aneurysm Mother Cancer Social History marital status: unknown household members: none lives independently: Yes housing: other ([facility]) Smoking Status: Former smoker alcohol intake: current Assessment & Plan Assessment & Plan narrative: 1. Acute metabolic encephalopathy 2. Witnessed seizure with New recurrent seizure activity possibly seen on the morning of May 18. 3. Possible alcohol withdrawal 4. Known seizure disorder 5. Leukocytosis 6. Thrombocytopenia PLAN: -CIWA. he scored 11 this morning, was given Ativan 0.5 IV x1. -Keppra , increase dosing to 750 q.12 from 500. -No extraordinary measures. -monitor progress today. MILES is unclear. Prognosis is guarded. -DNR DNI. Time-Based Coding :: [TOTAL MINUTES] spent with patient and on the chart (including review of chart, obtaining history, exam, reviewing outside data, placing orders, documenting exam and treatment plan, and counseling patient) on [DATE].
[2024-05-18] MEDS: HEPARIN 5,000 UNIT/ML VIAL 5000 UNIT SUBCUT (09:02)
[2024-05-18] MEDS: LORazepam 2 MG/ML INJ 1 MG IV (09:02)
[2024-05-18] MEDS: MULTIVITAMIN 1 TABLET 1 TAB PO (09:03)
[2024-05-18] MEDS: FOLIC ACID 1 MG TABLET PO (09:03)
[2024-05-18] MEDS: THIAMINE 100 MG TABLET PO (09:03)
[2024-05-18] MEDS: levETIRAcetam 750 MG in SODIUM CHLORIDE 0.9% 100 ML 420 MG IV ×2 (09:30→20:51)
[2024-05-18] MEDS: SODIUM CHLORIDE 0.9% 1,000 ML 84 ML IV (09:30)
[2024-05-18 12:10] LABS: Hematocrit 40.4 % (41-53); Hemoglobin 13.5 g/dL (13.5-17.5); Mean Corpuscular HGB Conc 33.4 % (30-36); Mean Corpuscular Hemoglobin 31.9 PG (26-34); Mean Corpuscular Volume 95.7 fL (80-100); Platelet Count 98 X10^3/uL (150-400); Red Blood Cell Count 4.22 X10^6/uL (4.5-5.9); White Blood Cell Count 8.4 X10^3/uL (4.5-11.0)
[2024-05-18 12:31] LABS: Alanine Aminotransferase 41 IU/L (<50); Albumin 2.9 g/dL (3.5-5.0); Albumin Globulin Ratio 1.1 (1.0-2.8); Alkaline Phosphatase 62 U/L (38-126); Aspartate Aminotransferase 48 IU/L (17-59); BUN Creatinine Ratio 30.2 (6-22); Bilirubin Total 0.7 mg/dL (0.2-1.3); Blood Urea Nitrogen 19 mg/dL (9-20); Carbon Dioxide 22 mmol/L (22-32); Estimated Glomerular Filt Rate > 60 mL/min (>60); Globulin 2.7 g/dL (1.7-4.1); Glucose 118 mg/dL (80-110); HEMOLYSIS 33 (0-50); Potassium 3.4 mmol/L (3.4-5.1); Sodium 152 mmol/L (137-145); Total Protein 5.6 g/dL (6.3-8.2)
[2024-05-18 12:34] LABS: Chloride 124 mmol/L (98-107)
[2024-05-18] MEDS: DEXTROSE 5% WATER 1,000 ML 50 ML IV (14:05)
--- NOTE | 2024-05-18 16:03 | CM.DPNOTE ---
DCP note PREPARATION SUPERVISOR reviewed EMR per provider in rounds, unsure if pt will perk up or will continue to deteriorate in his health and pass here at the hospital. Per RN, pt remains not verbally responsive to staff. appears to be speaking to hallucinations occasionally. CIWA 11. had an apparent seizure this morning. mitts on due to pt attempting to pull out IV. PREPARATION SUPERVISOR met with pt's 2nd DPOA/Friend Mo in room. Mo reports being unsure who pt's financial POA is. unsure how much pt was able to spend down on his Medicaid to qualify for LTC. remains willing to help as able to coordinate DCP. Mo not able to care for pt in his home. Mo reports he has sort of access to pt's bank account? Mo reports it's more of he's friends with the bank staff rather than he is pt's financial POA? Mo reports he helps pt pay his bills. PREPARATION SUPERVISOR had lengthy DCP conversation with 1st DPOA/friend Layo [phone]. Layo unsure who pt's financial POA is (no record of financial POA scanned into pt's chart that this PREPARATION SUPERVISOR can find). unsure who helped pt complete last Medicaid Omid. report willing to help as able for pt to complete omid but does not want to be responsible for pt's bills. Layo reports he does not believe pt is safe in his own home. layo is willing to speak with APS animal cruelty investigator to help Gwendolyn. PREPARATION SUPERVISOR lvm with APS worker Laurent Guerrero and emailed him with updates. [email or web address] [phone]. DCP will continue to follow closely. pending medical POC/if pt stabilizes or medically deteriorates. If stabilizes but remains non decisional, will need to complete medicaid LTC omid/anticipate LTC placement with potential hospice support? RAFAEL Zelaya
--- NOTE | 2024-05-18 16:10 | SLP.IPNOTE ---
Chart reviewed and nursing consulted. RN reported no difficulty with swallowing until pt was given Ativan later in the morning, after which he demonstrated oral stasis with all intake and coughing with solid piece of turkey. Clinical swallow evaluation attempted, though pt nodding in and out of sleep and very difficult to arouse. He remained awake for a few seconds at a time and was minimally alert. When presented with cup, he attempted to chew on it and did not initiate intake. He did not speak or follow directions. Given reduced alertness and drowsiness, plan to hold CSE till tomorrow. Recommend nursing hold PO intake if no change in current status. Discussed progress with RN and MD who expressed understanding.
--- NOTE | 2024-05-18 18:40 | PM.EVENT ---
Event Note Date Patient Seen: 05/18/24 Time Patient Seen: 18:40 Event Note (Rapid Response, Code, or fall): Gurgling breathing sounds. The patient presented after being found down. He was intubated in the field and has a long history of seizures, medication noncompliance, and alcohol abuse. His power of admitted attorneys noted that he was DNR DNI in the tube is removed. He was sent up and did improve for about a day or 2 but over the last 2 days has not been eating and then developed hypernatremia. The patient was started on D5W today. It was a question of seizure activity in his Keppra was increased from 500-750 IV q.12 hours. He was more gurgly tonight and may have aspirated earlier today before being made NPO. We will add IV antibiotics. The patient really is at the upper end of his level of care as outlined when he was admitted. He really is not appropriate for ICU level care based on his power of attorneys and we will continue simple measures with oxygen, D5W, and IV antibiotics tonight and see how he does.
[2024-05-18 19:20] LABS: BUN Creatinine Ratio 21.5 (6-22); Blood Urea Nitrogen 17 mg/dL (9-20); Calcium 8.9 mg/dL (8.4-10.2); Carbon Dioxide 23 mmol/L (22-32); Estimated Glomerular Filt Rate > 60 mL/min (>60); Glucose 123 mg/dL (80-110); HEMOLYSIS < 15 (0-50); Potassium 3.5 mmol/L (3.4-5.1); Sodium 152 mmol/L (137-145)
[2024-05-18 19:34] LABS: Chloride 124 mmol/L (98-107)
--- NOTE | 2024-05-18 19:43 | PC.NURSE ---
This Am went to assess patient. He appeared to be at the end of a seizure. He had total body tremors and rapid eye movement horizontally bilat. It lasted about 45 seconds to a minute. He was more awake than he has been and ate bkft w/out diff. MD did come and see pt. He got some ativan and Keppra was increased. he slept soundly after IV ativan was given for several hours. He was awakened for lunch. He was given a couple of bites of potatos 1 bite of turkey. The turkey was soft. However pt found it difficult to eat. He chewed on it for a long time. Then he had some coughing. Meal was stopped and MD made aware of need for speech therepy to see. Speech therepy did come and see pt but he was to sleepy this afternoon to follow directions. So assessment couldn't be completed. Pt was made NPO. Pt has sounded more gurgly and crackles as the day has gone on. MD made aware in case he wanted a chest x-ray. At 1730 pt had a full body tremor/twitching that lasted 15 seconds. His sat is 90% on RA which is sl down from this am. Had been 93-94%. Dr. Azar came in to see pt. O2 was applied at 2L. O2 sat went up to 94%. doesn't want a chest x-ray for now. Keep pt comfortable and keep monitoring for seizures. Pt does at times have repetitive movement to the rt arm and leg which are very brief. Seizure pads in place. Report given to Ana Lilia BELCHER, monitor for seizures.
[2024-05-18] MEDS: LORazepam 2 MG/ML INJ IV ×2 (21:05→21:33)
[2024-05-18] MEDS: PIPERACILLIN/TAZO 3.375 GM in SODIUM CHLORIDE 0.9% 100 ML IV (21:52)
[2024-05-19] VITALS (10 sets, daily range): BP systolic 93–139; BP diastolic 58–84; PULSE 92–110; RESP 20–38; TEMP 36.4–36.7; O2SAT 91–100
[2024-05-19] MEDS: PIPERACILLIN/TAZO 3.375 GM in SODIUM CHLORIDE 0.9% 100 ML IV ×3 (03:45→18:34)
[2024-05-19] MEDS: LORazepam 2 MG/ML INJ IV ×4 (05:09→18:34)
[2024-05-19] MEDS: LIDOCAINE 2% (GLYDO) 6 ML GEL TOP (05:11)
[2024-05-19] MEDS: SODIUM CHLORIDE 0.9% FLUSH 10 ML IV ×2 (09:00→20:17)
[2024-05-19] MEDS: levETIRAcetam 750 MG in SODIUM CHLORIDE 0.9% 100 ML 420 MG IV ×2 (09:11→20:23)
[2024-05-19] MEDS: HEPARIN 5,000 UNIT/ML VIAL 5000 UNIT SUBCUT ×2 (09:11→20:24)
--- NOTE | 2024-05-19 10:19 | CM.DPNOTE ---
Addendum entered by RAFAEL Davis 05/19/24 11:29: Addendum: ROLL OVER LOADER spoke with APS Fisher Terrapin Laurent Guerrero, it is reported that he will cancel visit on this day, 05/19, but confirmed that he will visit patient at bedside tomorrow, 05/20, no matter cognizance level. LIZBETH Belcher Original Note: DCP Continued: Reviewed EMR and team rounds for pt?s medical status. Per hospitalist in rounds and RN, pt is still unresponsive, sleeping most of the time. Pt had a APS assessment scheduled with APS Fisher Terrapin, Laurent Guerrero (ph# [phone]), ROLL OVER LOADER left a voice message and sent secure email notifying APS Fisher [employer]rapin that pt is not alert to have assessment/conversation at this time. ROLL OVER LOADER met with pt 2nd Joel DRIVER, at the bedside. ROLL OVER LOADER discussed above with DPOA and that more medical observation is needed at this time, DPOA states he is available if plan of care changes. Plan: Continued medical observation, anticipating comfort care plans if pt still unresponsive. CM Team will continue to follow for coordination of discharge plans. LIZBETH Belcher
[2024-05-19] MEDS: DEXTROSE 5% WATER 1,000 ML 50 ML IV (11:15)
--- NOTE | 2024-05-19 12:16 | SLP.IPNOTE ---
PEDIATRIC CRITICAL CARE NURSE discussed overall progress overnight with RN. RN reported pt continues to be minimally alert and responsive to stimuli. He has been made NPO as he is unable to stay awake for PO intake at this time. PEDIATRIC CRITICAL CARE NURSE was again unable to arouse pt today. Discussed pt overall status with MD who agreed with discharging order at this time and placing new order for swallowing evaluation if overall medical status improves and pt is able to tolerate intake. Will discharge at this time and follow-up as indicated.
[2024-05-19 13:37] LABS: BUN Creatinine Ratio 16.1 (6-22); Blood Urea Nitrogen 15 mg/dL (9-20); Calcium 8.3 mg/dL (8.4-10.2); Carbon Dioxide 26 mmol/L (22-32); Estimated Glomerular Filt Rate > 60 mL/min (>60); Glucose 123 mg/dL (80-110); HEMOLYSIS < 15 (0-50); Potassium 3.1 mmol/L (3.4-5.1); Sodium 154 mmol/L (137-145)
[2024-05-19 13:39] LABS: Chloride 122 mmol/L (98-107)
[2024-05-19] MEDS: MORPHINE 10 MG/0.5 ML ORAL SYRINGE PO ×2 (14:18→16:29)
[2024-05-19] MEDS: SCOPOLAMINE 1 PATCH TOP (15:43)
[2024-05-19] MEDS: POTASSIUM CHLORIDE IN WATER 10 MEQ/100 ML PIGGYBACK 100 MEQ IV ×4 (15:44→19:01)
--- NOTE | 2024-05-19 17:17 | P.PN_ITS ---
Subjective Subjective Interval history: Summary: Patient is a 68-year-old male with history of alcohol dependence and seizure. He presented with intoxication, seizure, and being found down. The patient was intubated in the field and then extubated after being discovered to be DNI. He has not been recovering well and is minimally responsive today. Hospital Course: 05/17: Somnolent. No WD symptoms. 05/17: sedated. Negative ABG and CT brain. 05/18: Some possible myoclonic twitching behavior was noted by the nurse early this morning. Raising the question of intermittent seizure activity. He has been on Keppra 500 IV q.12. S: Narrative not obtainable Exam Vital Signs (past 8 hours): - 05/19/24 09:31 05/19/24 11:00 05/19/24 12:00 Temperature 98.1 F Pulse Rate 92 H 95 H Respiratory Rate 24 32 H Blood Pressure 114/71 Pulse Oximetry 95 98 Oxygen Delivery Method Oximask Oxygen Flow Rate 5 5 Oxygen Delivery Method Oximask Oxygen Flow Rate 5 Narrative Exam Narrative: Gen: Somnolent, not arousable, sonorous Pulm: Diffuse rhonchi no wheezing CV: RRR no m/r/g Ext: No edema Objective Labs 05/18/24 12:03 05/19/24 13:17 Labs: Laboratory Results - last 24 hr 05/18/24 05/19/24 18:47 13:17 Sodium 152 H 154 H Potassium 3.5 3.1 L Chloride 124 H* 122 H* Carbon Dioxide 23 26 BUN 17 15 Creatinine 0.79 0.93 Estimated GFR > 60 > 60 BUN/Creatinine Ratio 21.5 16.1 Glucose 123 H 123 H Calcium 8.9 8.3 L [facility] Medical History Cognitive deficits Chronic hyponatremia Left elbow fracture Broken neck Multiple falls Cervical spondylosis with myelopathy Marijuana dependence Osteoarthritis Memory loss Osteoarthrosis Epilepsy, unspecified, not intractable, without status epilepticus Alcohol dependence, uncomplicated Surgical History History of neck surgery History of back surgery H/O foot surgery H/O thumb surgery History of esophagogastroduodenoscopy (EGD) History of colonoscopy Family History Father Cancer Aneurysm Mother Cancer Social History marital status: unknown household members: none lives independently: Yes housing: other ([facility]) Smoking Status: Former smoker alcohol intake: current Assessment & Plan Assessment & Plan narrative: 1. Acute metabolic encephalopathy, likely aspiration pneumonia 2. Witnessed seizure with New recurrent seizure activity possibly seen on the morning of May 18. 3. Possible alcohol withdrawal 4. Known seizure disorder 6. Thrombocytopenia 7. Hypernatremia, acute, present on admission PLAN: -Keppra , increased dosing to 750 q.12 from 500. -started on antibiotics for probable pulmonary aspiration -continue D5W for hypernatremia today -monitor progress with mentation, will give him more time to see if improvement in mentation with IV fluids and antibiotics. MILES is unclear. Prognosis is guarded. -DNR DNI. Time-Based Coding :: [TOTAL MINUTES] spent with patient and on the chart (including review of chart, obtaining history, exam, reviewing outside data, placing orders, documenting exam and treatment plan, and counseling patient) on [DATE].
--- NOTE | 2024-05-19 18:15 | PC.NURSE ---
Day shift: Pt unresponsive to voice or touch or painful stimuli. He will occasionally groan/moan in his sleep. Repeated muscle twitching that varies in severity - sometimes just his right arm, sometimes his entire chest and both arms. Patient sounds gurgly, attempted to suction secretions multiple times today - unable to clear everything and patient still sounds rattling with increased work of breathing. RT and MD Eduardo aware. Patient's oxygen saturation is 95% on 2L this evening via simple mask. Notified MD Eduardo multiple times today of patient's condition - requested comfort care orders as per notes this was patient's wishes. Patient remains on IV antibiotics, IV fluids, and oxygen. Obtained orders for sublingual morphine and scopolamine patch to help with secretions. MD Eduardo stated no official comfort care orders yet. He plans to reassess tomorrow with patient's DPOA. IV ativan given x 3 per CIWA protocol. This seemed to help patient's work of breathing and muscle tremors and groaning significantly. Will continue to monitor.
[2024-05-20] MEDS: PIPERACILLIN/TAZO 3.375 GM in SODIUM CHLORIDE 0.9% 100 ML IV ×3 (03:19→18:28)
[2024-05-20] MEDS: DEXTROSE 5% WATER 1,000 ML 100 ML IV ×2 (04:23→14:47)
[2024-05-20 08:00] VITALS: BP 104/71; PULSE 87; RESP 16; TEMP 36.2; O2SAT 95
[2024-05-20 08:33] LABS: Add Manual Diff / Slide Review NO; Basophils Absolute Auto 0 /uL (0-100); Basophils Percent Auto 0.7 % (0-2); Eosinophils Absolute Auto 200 /uL (0-450); Eosinophils Percent Auto 4.1 % (2-4); Hematocrit 34.3 % (41-53); Hemoglobin 11.7 g/dL (13.5-17.5); Lymphocytes Absolute Auto 1500 /uL (1100-4500); Lymphocytes Percent Auto 26.3 % (25-40); Mean Corpuscular HGB Conc 33.9 % (30-36); Mean Corpuscular Hemoglobin 32.5 PG (26-34); Mean Corpuscular Volume 95.6 fL (80-100); Monocytes Absolute Auto 700 /uL (0-900); Monocytes Percent Auto 11.6 % (3-14); Neutrophils Absolute Auto 3200 /uL (1500-7000); Neutrophils Percent Auto 57.3 % (50-75); Platelet Count 129 X10^3/uL (150-400); Red Blood Cell Count 3.59 X10^6/uL (4.5-5.9); Red Cell Distribution Width 15.1 % (11.6-14.8); White Blood Cell Count 5.6 X10^3/uL (4.5-11.0)
[2024-05-20 08:50] LABS: BUN Creatinine Ratio 16.9 (6-22); Blood Urea Nitrogen 12 mg/dL (9-20); Calcium 8.4 mg/dL (8.4-10.2); Carbon Dioxide 24 mmol/L (22-32); Chloride 118 mmol/L (98-107); Estimated Glomerular Filt Rate > 60 mL/min (>60); Glucose 124 mg/dL (80-110); HEMOLYSIS < 15 (0-50); Potassium 3.4 mmol/L (3.4-5.1); Sodium 147 mmol/L (137-145)
[2024-05-20] MEDS: levETIRAcetam 750 MG in SODIUM CHLORIDE 0.9% 100 ML 420 MG IV ×2 (08:55→21:19)
[2024-05-20] MEDS: HEPARIN 5,000 UNIT/ML VIAL 5000 UNIT SUBCUT ×2 (08:55→21:20)
[2024-05-20] MEDS: MORPHINE 10 MG/0.5 ML ORAL SYRINGE PO ×2 (08:56→13:14)
--- NOTE | 2024-05-20 10:33 | DIET.CONS ---
Addendum entered by Yareli Pinto 05/21/24 10:31: Plan of care per hospitalist after GOC remains limited interventions for next couple of days (fluids, seizures meds, antibiotics) to see if there is improvement in mentation. Original Note: Dietary Consultation Note Admission Date: 05/15/2024 15:54 Assessment: 68 y M presented with seizure and intoxication. Dietitian screened for LOS. Pt NPO d/t unable to be awake enough for food per MATERIAL CONTROL CLERK note. Pt started on D5W May 18. Pt on limited interventions (fluids, antibiotics) per hospitalist and will have GOC conversation with DPOA. No recent weight loss per chart. 2 recorded PO intakes of 25% and 50% on 05/18/24. Pt with hx of alcohol dependency and chronic protein calorie malnutrition related to excessive alcohol intake. Ht: 177.8 cm Wt: 73.5 kg BMI: 23.2 UBW: 68.039 kg on 01/24/24, 69.456 kg on 12/18/23 Last BM: () MNA: Vaughn Score: 12 Diet: 05/19/24 05:36 NPO Diet Diet Modifications: NPO Type: Strict Nutrition Percent Meal Consumed 25% 05/18/24 12:00 Labs: RBC 3.59 X10^6/uL (4.5-5.9) L 05/20/24 08:24 Hgb 11.7 g/dL (13.5-17.5) L 05/20/24 08:24 Hct 34.3 % (41-53) L 05/20/24 08:24 Creatinine 0.71 mg/dL (0.66-1.25) 05/20/24 08:24 Nutrition Diagnosis: Inadequate oral intake r/t inability to remain awake for safe PO intake aeb pt made NPO per MATERIAL CONTROL CLERK/hospitalist Interventions: pt on limited interventions, GOC today per hospitalist with DPOA Monitoring/Evaluations: plan of care Electronically Signed by: Yareli Pinto 05/20/24 10:33 Clinical Dietitian [address] [address]
[2024-05-20 12:00] VITALS: BP 108/76; PULSE 89; RESP 20; TEMP 36.3; O2SAT 95
--- NOTE | 2024-05-20 13:57 | CM.DPC ---
Addendum entered by RAFAEL Sepulveda 05/20/24 15:12: ADD: MD met bedside with pt's DPOAs/friends Layo and Joel and decision to give pt another 2 days to see if he is just going through withdrawals and begins to become more alert and responsive and if pt does not then plan will be to switch to Full Comfort Care. SW met bedside with Layo and Joel and explained role and they plan to go down to the bank today to help with paying pt's apartment rent and try to determine how much pt has in the bank in case pt is able to discharge the hospital and needs assist or [facility] LTC application completed again. Plan: SW to follow closely tomorrow to determine if pt makes any improvements and remains mostly unresponsive and switches to comfort care. Unclear at this time if pt will in the hospital or will need discharge plan that might involve financial needs. RAFAEL Sepulveda Original Note: DCP Cont: Per MD and RN, pt started on morphine yesterday as pt seemed to be in discomfort and still not waking or responding to stimuli but still getting labs and IV fluids and antibiotics. Per RN, pt's sats dropped today and had to be placed back on oxygen. SW called pt's POA friend Layo and requested he be bedside for Goals of Care discussion with MD to determine if plan is to continue treating to see if pt is going through withdrawals or switch to full Comfort Measures. Layo confirms he can be bedside around 1430 today and updated RN and MD. RAFAEL Sepulveda
[2024-05-20] MEDS: LORazepam 2 MG/ML INJ IV (14:18)
[2024-05-20 14:47] VITALS: PULSE 95; RESP 28
--- NOTE | 2024-05-20 17:36 | P.PN_ITS ---
Subjective Subjective Interval history: Summary: Patient is a 68-year-old male with history of alcohol dependence and seizure. He presented with intoxication, seizure, and being found down. The patient was intubated in the field and then extubated after being discovered to be DNI. He has not been recovering well and is minimally responsive today. Hospital Course: 05/17: Somnolent. No WD symptoms. 05/17: sedated. Negative ABG and CT brain. 05/18: Some possible myoclonic twitching behavior was noted by the nurse early this morning. Raising the question of intermittent seizure activity. He has been on Keppra 500 IV q.12. 05/20: repeat goals of care discussion: POA wished to continue limited interventions of fluids, antibiotics, and withdrawal management for a couple more days to see if improvement in mentation. S: Narrative not obtainable Exam Vital Signs (past 8 hours): - 05/20/24 12:00 05/20/24 14:47 Temperature 97.4 F L Pulse Rate 89 95 H Respiratory Rate 20 28 H Blood Pressure 108/76 Pulse Oximetry 95 Oxygen Delivery Method Room Air Oxygen Flow Rate 0.5 Narrative Exam Narrative: Gen: Somnolent, not arousable, sonorous Pulm: Diffuse rhonchi no wheezing CV: RRR no m/r/g Ext: No edema Objective Labs 05/20/24 08:24 05/20/24 08:24 Labs: Laboratory Results - last 24 hr 05/20/24 08:24 WBC 5.6 RBC 3.59 L Hgb 11.7 L Hct 34.3 L MCV 95.6 MCH 32.5 MCHC 33.9 RDW 15.1 H Plt Count 129 L Neut % (Auto) 57.3 Lymph % (Auto) 26.3 [place] % (Auto) 11.6 Eos % (Auto) 4.1 H Baso % (Auto) 0.7 Neut # (Auto) 3200 Lymph # (Auto) 1500 [place] # (Auto) 700 Eos # (Auto) 200 Baso # (Auto) 0 Sodium 147 H Potassium 3.4 Chloride 118 H Carbon Dioxide 24 BUN 12 Creatinine 0.71 Estimated GFR > 60 BUN/Creatinine Ratio 16.9 Glucose 124 H Calcium 8.4 PFSH Medical History Cognitive deficits Chronic hyponatremia Left elbow fracture Broken neck Multiple falls Cervical spondylosis with myelopathy Marijuana dependence Osteoarthritis Memory loss Osteoarthrosis Epilepsy, unspecified, not intractable, without status epilepticus Alcohol dependence, uncomplicated Surgical History History of neck surgery History of back surgery H/O foot surgery H/O thumb surgery History of esophagogastroduodenoscopy (EGD) History of colonoscopy Family History Father Cancer Aneurysm Mother Cancer Social History marital status: unknown household members: none lives independently: Yes housing: other ([facility]) Smoking Status: Former smoker alcohol intake: current Assessment & Plan Assessment & Plan narrative: 1. Acute metabolic encephalopathy, likely aspiration pneumonia 2. Witnessed seizure with New recurrent seizure activity possibly seen on the morning of May 18. 3. Possible alcohol withdrawal 4. Known seizure disorder 6. Thrombocytopenia 7. Hypernatremia, acute, present on admission PLAN: -Keppra , increased dosing to 750 q.12 from 500. -started on antibiotics for probable pulmonary aspiration -continue D5W for hypernatremia today, had to increase but Na now improving. -monitor progress with mentation, will give him more time to see if improvement in mentation with IV fluids and antibiotics. I spent 20 minutes involved in the advanced care planning for this patient including discussions about goals of care, treatment course and possible outcomes with the Layo DRIVER. Currently he wishes to continue limited interventions of fluids, antibiotics, and seizure medications along with alcohol withdrawal treatments to see if there is any improvement in his mentation. - MILES is unclear. Prognosis is guarded. -DNR DNI. Time-Based Coding :: [TOTAL MINUTES] spent with patient and on the chart (including review of chart, obtaining history, exam, reviewing outside data, placing orders, documenting exam and treatment plan, and counseling patient) on [DATE].
[2024-05-20 20:00] VITALS: BP 116/73; PULSE 94; RESP 24; TEMP 36.4; O2SAT 94
[2024-05-21] VITALS (8 sets, daily range): BP systolic 106–211; BP diastolic 57–171; PULSE 89–105; RESP 20–24; TEMP 36.6–36.9; O2SAT 92–98
[2024-05-21] MEDS: DEXTROSE 5% WATER 1,000 ML 100 ML IV ×2 (00:37→16:53)
[2024-05-21] MEDS: PIPERACILLIN/TAZO 3.375 GM in SODIUM CHLORIDE 0.9% 100 ML IV ×3 (02:52→18:36)
[2024-05-21 06:06] LABS: Add Manual Diff / Slide Review NO; Basophils Absolute Auto 0 /uL (0-100); Basophils Percent Auto 0.9 % (0-2); Eosinophils Absolute Auto 200 /uL (0-450); Eosinophils Percent Auto 3.2 % (2-4); Hematocrit 31.2 % (41-53); Hemoglobin 10.5 g/dL (13.5-17.5); Lymphocytes Absolute Auto 1300 /uL (1100-4500); Mean Corpuscular HGB Conc 33.7 % (30-36); Mean Corpuscular Hemoglobin 32.3 PG (26-34); Mean Corpuscular Volume 95.7 fL (80-100); Monocytes Absolute Auto 400 /uL (0-900); Monocytes Percent Auto 7.6 % (3-14); Neutrophils Absolute Auto 3600 /uL (1500-7000); Neutrophils Percent Auto 64.3 % (50-75); Platelet Count 140 X10^3/uL (150-400); Red Blood Cell Count 3.26 X10^6/uL (4.5-5.9); Red Cell Distribution Width 14.9 % (11.6-14.8); White Blood Cell Count 5.6 X10^3/uL (4.5-11.0)
[2024-05-21 06:20] LABS: BUN Creatinine Ratio 15.6 (6-22); Blood Urea Nitrogen 12 mg/dL (9-20); Calcium 8.2 mg/dL (8.4-10.2); Carbon Dioxide 23 mmol/L (22-32); Chloride 115 mmol/L (98-107); Estimated Glomerular Filt Rate > 60 mL/min (>60); Glucose 113 mg/dL (80-110); HEMOLYSIS 39 (0-50); Potassium 3.3 mmol/L (3.4-5.1); Sodium 142 mmol/L (137-145)
[2024-05-21] MEDS: levETIRAcetam 750 MG in SODIUM CHLORIDE 0.9% 100 ML 420 MG IV (09:30)
[2024-05-21] MEDS: MORPHINE 10 MG/0.5 ML ORAL SYRINGE PO ×4 (09:40→18:36)
[2024-05-21] MEDS: HEPARIN 5,000 UNIT/ML VIAL 5000 UNIT SUBCUT ×2 (09:46→20:08)
[2024-05-21] MEDS: POTASSIUM CHLORIDE IN WATER 10 MEQ/100 ML PIGGYBACK 100 MEQ IV ×4 (10:21→13:43)
--- NOTE | 2024-05-21 10:50 | CM.DPNOTE ---
DCP Continued: Reviewed EMR and team rounds for pt?s medical status. Per hospitalist's goals of care conversation with pt's POAs, pt to be observed for another 1-2 days to see if he will recover from withdrawals then a decision will be made to switch to Full Comfort Care. CM Team following if Medicaid LTC application needed if pt becomes responsive, previous LTC application in Care Management office for reference. Plan: Following for possible comfort care vs. retirement care placement pending pt's progress. CM Team will continue to follow for coordination of discharge plans. LIZBETH Belcher
[2024-05-21] MEDS: LORazepam 2 MG/ML INJ 1 MG IV ×2 (11:20→15:43)
[2024-05-21] MEDS: LORazepam 2 MG/ML INJ IV ×4 (12:16→18:38)
[2024-05-21] MEDS: PHENobarbital 65 MG/ML VIAL 130 MG IV ×2 (13:14→16:43)
--- NOTE | 2024-05-21 16:29 | PM.PN.1 ---
Subjective Subjective Interval history: Summary: Patient is a 68-year-old male with history of alcohol dependence and seizure. He presented with intoxication, seizure, and being found down. The patient was intubated in the field and then extubated after being discovered to be DNI. He has not been recovering well and is minimally responsive today. Hospital Course: 05/17: Somnolent. No WD symptoms. 05/17: sedated. Negative ABG and CT brain. 05/18: Some possible myoclonic twitching behavior was noted by the nurse early this morning. Raising the question of intermittent seizure activity. He has been on Keppra 500 IV q.12. 05/20: repeat goals of care discussion: POA wished to continue limited interventions of fluids, antibiotics, and withdrawal management for a couple more days to see if improvement in mentation. 05/21: repetitive dorsiflexion of R foot, and R arm flexion as well consistent with behavior above. Gave phenobarb x2, increased keppra to 1g. S: Narrative not obtainable Exam Vital Signs (past 8 hours): - 05/21/24 11:42 05/21/24 12:00 05/21/24 16:07 Temperature 98.2 F Pulse Rate 97 H Respiratory Rate 24 20 Blood Pressure 116/76 130/67 Pulse Oximetry 92 Oxygen Flow Rate 0 Oxygen Delivery Method Room Air Oxygen Flow Rate 0 Narrative Exam Narrative: Gen: Somnolent, not arousable, sonorous. R foot repetitive dorsiflexion and R arm jerking / flexion. Pulm: Diffuse rhonchi no wheezing CV: RRR no m/r/g Ext: No edema Objective Labs 05/21/24 05:19 05/21/24 05:19 Labs: Laboratory Results - last 24 hr 05/21/24 05:19 WBC 5.6 RBC 3.26 L Hgb 10.5 L Hct 31.2 L MCV 95.7 MCH 32.3 MCHC 33.7 RDW 14.9 H Plt Count 140 L Neut % (Auto) 64.3 Lymph % (Auto) 24.0 L [place] % (Auto) 7.6 Eos % (Auto) 3.2 Baso % (Auto) 0.9 Neut # (Auto) 3600 Lymph # (Auto) 1300 [place] # (Auto) 400 Eos # (Auto) 200 Baso # (Auto) 0 Sodium 142 Potassium 3.3 L Chloride 115 H Carbon Dioxide 23 BUN 12 Creatinine 0.77 Estimated GFR > 60 BUN/Creatinine Ratio 15.6 Glucose 113 H Calcium 8.2 L PFSH Medical History Cognitive deficits Chronic hyponatremia Left elbow fracture Broken neck Multiple falls Cervical spondylosis with myelopathy Marijuana dependence Osteoarthritis Memory loss Osteoarthrosis Epilepsy, unspecified, not intractable, without status epilepticus Alcohol dependence, uncomplicated Surgical History History of neck surgery History of back surgery H/O foot surgery H/O thumb surgery History of esophagogastroduodenoscopy (EGD) History of colonoscopy Family History Father Cancer Aneurysm Mother Cancer Social History marital status: unknown household members: none lives independently: Yes housing: other ([facility]) Smoking Status: Former smoker alcohol intake: current Assessment & Plan Assessment & Plan narrative: 1. Acute metabolic encephalopathy, likely aspiration pneumonia 2. Witnessed seizure with New recurrent seizure activity possibly seen on the morning of May 18 and 05/21. 3. Alcohol withdrawal 4. Known seizure disorder 6. Thrombocytopenia 7. Hypernatremia, acute, present on admission PLAN: -Keppra , increased dosing to 1000 q.12 from 750. -started on antibiotics for probable pulmonary aspiration, will continue -continue D5W for hypernatremia today, Na is now within the normal range. However return of seizure activity, suspect alcohol withdrawal related. Repeat CT head last time without bleeding. -continue treatment for etoh withdrawal, he is moaning a bit more today, improved with ativan and phenobarb somewhat. Continue phenobarb prn. - MILES is unclear. Prognosis is guarded. Continue to recommend ongoing goals of care and revisiting comfort only treatment with JAYME Vasques -DNR DNI. Time-Based Coding :: [TOTAL MINUTES] spent with patient and on the chart (including review of chart, obtaining history, exam, reviewing outside data, placing orders, documenting exam and treatment plan, and counseling patient) on [DATE].
[2024-05-21] MEDS: MORPHINE 4 MG/ML INJ IV (16:43)
[2024-05-21] MEDS: OXYCODONE IR 5 MG TABLET 10 MG PO (17:29)
[2024-05-21] MEDS: SODIUM CHLORIDE 0.9% FLUSH 10 ML IV (20:07)
[2024-05-21] MEDS: levETIRAcetam 1,000 MG in SODIUM CHLORIDE 0.9% 100 ML 420 MG IV (20:18)
--- NOTE | 2024-05-21 22:51 | PC.NURSE ---
Patient unresponsive, not able to assess CIWA. Drooling suctioned x1, SPO2 in room air 95-96%. Will continue olmedo of care & monitor.
[2024-05-22] MEDS: PIPERACILLIN/TAZO 3.375 GM in SODIUM CHLORIDE 0.9% 100 ML IV ×3 (02:28→18:25)
[2024-05-22] MEDS: DEXTROSE 5% WATER 1,000 ML 100 ML IV (03:41)
[2024-05-22 04:00] VITALS: BP 103/73; PULSE 97; RESP 24; TEMP 36.5; O2SAT 95
[2024-05-22] MEDS: LORazepam 2 MG/ML INJ IV ×2 (04:07→16:38)
--- NOTE | 2024-05-22 04:22 | PC.NURSE ---
Noted involuntary movement , more notable on his right lower extremity, 2 mg. of Lorazepam IVP admin. Upper airway coarse breath sounds, tried to suction orally but clenched his teeth. Was not able to suction him, HOB elevated to 25 degrees. Will monitor.
[2024-05-22 06:11] LABS: Add Manual Diff / Slide Review NO; Basophils Absolute Auto 0 /uL (0-100); Basophils Percent Auto 0.6 % (0-2); Eosinophils Absolute Auto 200 /uL (0-450); Eosinophils Percent Auto 2.5 % (2-4); Hematocrit 31.1 % (41-53); Hemoglobin 10.5 g/dL (13.5-17.5); Lymphocytes Absolute Auto 1100 /uL (1100-4500); Lymphocytes Percent Auto 16.3 % (25-40); Mean Corpuscular HGB Conc 33.9 % (30-36); Mean Corpuscular Hemoglobin 32.3 PG (26-34); Mean Corpuscular Volume 95.2 fL (80-100); Monocytes Absolute Auto 500 /uL (0-900); Monocytes Percent Auto 7.3 % (3-14); Neutrophils Absolute Auto 5100 /uL (1500-7000); Neutrophils Percent Auto 73.3 % (50-75); Platelet Count 163 X10^3/uL (150-400); Red Blood Cell Count 3.27 X10^6/uL (4.5-5.9); Red Cell Distribution Width 14.5 % (11.6-14.8); White Blood Cell Count 6.9 X10^3/uL (4.5-11.0)
[2024-05-22 06:18] LABS: BUN Creatinine Ratio 9.7 (6-22); Blood Urea Nitrogen 7 mg/dL (9-20); Calcium 7.8 mg/dL (8.4-10.2); Carbon Dioxide 20 mmol/L (22-32); Chloride 110 mmol/L (98-107); Estimated Glomerular Filt Rate > 60 mL/min (>60); Glucose 113 mg/dL (80-110); HEMOLYSIS < 15 (0-50); Potassium 3.2 mmol/L (3.4-5.1); Sodium 138 mmol/L (137-145)
[2024-05-22 08:00] VITALS: BP 126/68; PULSE 97; RESP 20; TEMP 36.8; O2SAT 95
[2024-05-22] MEDS: levETIRAcetam 1,000 MG in SODIUM CHLORIDE 0.9% 100 ML 420 MG IV ×2 (08:43→19:02)
[2024-05-22] MEDS: POTASSIUM CHLORIDE IN WATER 10 MEQ/100 ML PIGGYBACK 100 MEQ IV ×4 (08:47→12:51)
[2024-05-22] MEDS: HEPARIN 5,000 UNIT/ML VIAL 5000 UNIT SUBCUT ×2 (09:56→20:36)
[2024-05-22] MEDS: SODIUM CHLORIDE 0.9% FLUSH 10 ML IV ×3 (09:59→20:37)
--- NOTE | 2024-05-22 11:54 | P.PN_ITS ---
Subjective Subjective Date Patient Seen: 05/22/24 Time Patient Seen: 09:07 Interval history: Summary: Patient is a 68-year-old male with history of alcohol dependence and seizure. He presented with intoxication, seizure, and being found down. The patient was intubated in the field and then extubated after being discovered to be DNI. He has not been recovering well and is minimally responsive today. Hospital Course: 05/17: Somnolent. No WD symptoms. 05/17: sedated. Negative ABG and CT brain. 05/18: Some possible myoclonic twitching behavior was noted by the nurse early this morning. Raising the question of intermittent seizure activity. He has been on Keppra 500 IV q.12. 05/20: repeat goals of care discussion: POA wished to continue limited interventions of fluids, antibiotics, and withdrawal management for a couple more days to see if improvement in mentation. 05/21: repetitive dorsiflexion of R foot, and R arm flexion as well consistent with behavior above. Gave phenobarb x2, increased keppra to 1g. 05/22: Appears comfortable, does not arouse to voice for this provider though reportedly moans verbally to nurse intervention. He is see at bedside with his friend Mariano. Exam Vital Signs (past 8 hours): - 05/22/24 04:00 05/22/24 08:00 Temperature 97.7 F 98.2 F Pulse Rate 97 H 97 H Respiratory Rate 24 20 Blood Pressure 103/73 126/68 Pulse Oximetry 95 95 Oxygen Flow Rate 0 0 Oxygen Delivery Method Room Air Oxygen Flow Rate 0 Narrative Exam Narrative: Gen: Somnolent, not arousable. Pulm: Clear. CV: RRR no m/r/g Ext: No edema Neuro: No focal signs or seizure activity. Objective Imaging *: Radiologist's impression: 1. Chest x-ray 05/15/2024: The tip of the endotracheal tube is seen 2.5 cm above the julianne. 2. Cervical spine CT 05/15/2024: Negative for acute fracture. Stable postoperative change. Underlying degenerative change seen. Endotracheal tube noted. 3. Head CT 05/15/2024: No imaging explanation is found for this patient's presenting symptoms. To the limits of this noncontrast study, no findings of intracranial masses or mass effect can be seen. No acute intracranial hemorrhage is seen. 4. Head CT 05/17/2024: No acute intracranial pathology. Labs 05/22/24 05:35 05/22/24 05:35 Labs: Laboratory Results - last 24 hr 05/22/24 05:35 WBC 6.9 RBC 3.27 L Hgb 10.5 L Hct 31.1 L MCV 95.2 MCH 32.3 MCHC 33.9 RDW 14.5 Plt Count 163 Neut % (Auto) 73.3 Lymph % (Auto) 16.3 L [place] % (Auto) 7.3 Eos % (Auto) 2.5 Baso % (Auto) 0.6 Neut # (Auto) 5100 Lymph # (Auto) 1100 [place] # (Auto) 500 Eos # (Auto) 200 Baso # (Auto) 0 Sodium 138 Potassium 3.2 L Chloride 110 H Carbon Dioxide 20 L BUN 7 L Creatinine 0.72 Estimated GFR > 60 BUN/Creatinine Ratio 9.7 Glucose 113 H Calcium 7.8 L PFSH Medical History Cognitive deficits Chronic hyponatremia Left elbow fracture Broken neck Multiple falls Cervical spondylosis with myelopathy Marijuana dependence Osteoarthritis Memory loss Osteoarthrosis Epilepsy, unspecified, not intractable, without status epilepticus Alcohol dependence, uncomplicated Surgical History History of neck surgery History of back surgery H/O foot surgery H/O thumb surgery History of esophagogastroduodenoscopy (EGD) History of colonoscopy Family History Father Cancer Aneurysm Mother Cancer Social History marital status: unknown household members: none lives independently: Yes housing: other ([facility]) Smoking Status: Former smoker alcohol intake: current Assessment & Plan Assessment & Plan narrative: 1. Acute metabolic encephalopathy, likely aspiration pneumonia 2. Witnessed seizure with new recurrent seizure activity possibly seen on the morning of May 18 and 05/21. 3. Alcohol withdrawal 4. Known seizure disorder 6. Thrombocytopenia 7. Hypernatremia, acute, present on admission, normalized. PLAN: -levetiracetam 1000 q.12 -continue Zosyn IV for probable pulmonary aspiration, likely stop tomorrow -stop D5W for hypernatremia and start D5LR -continue treatment for alcohol withdrawal, he is moaning a bit more today, improved and weaning lorazepam, now off phenobarbital. - MILES is unclear. Prognosis is guarded. -DNR DNI. IH PROFEE Game Designer/Creative Director Document charge(s): No Charge Codes Subsequent inpatient/observation care: [id number]
[2024-05-22 12:00] VITALS: BP 129/74; PULSE 100; RESP 20; TEMP 36.8; O2SAT 97
--- NOTE | 2024-05-22 12:31 | CM.DPC ---
DCP Cont: Per MD and RN, pt was able to make slight grunting noise as a response once this morning and might be slowly coming out of his non-responsiveness and will continue to give pt another 1-2 days before determining Comfort Care as pt historically takes many days before he becomes more alert and oriented and able to respond. RAFAEL Sepulveda
[2024-05-22] MEDS: DEXTROSE 5%-LACTATED RINGERS 1,000 ML 100 ML IV (12:52)
--- NOTE | 2024-05-22 13:42 | PC.NURSE ---
KARYN swollen around midline IV. Warm blanket wrapped around arm and extremity elevated. MD notified and USG perip.IV started - unable to start IV in R arm . PICC requested.
[2024-05-22] MEDS: SCOPOLAMINE 1 PATCH TOP (15:42)
--- NOTE | 2024-05-22 16:59 | DI.RAD.S_ITS ---
PROCEDURE: XR CHEST FOR PICC 1V INDICATIONS: picc placement COMPARISON: [facility], , XR CHEST 1V, 05/15/2024, 13:32. FINDINGS: PICC was placed by the intravenous therapy team from the right side. The tip of PICC projecting to the area of lower SVC. No pneumothorax. Small persistent right pleural effusion. Patchy opacities of the right lower lung zone. IMPRESSION: Tip of PICC projects to the area of lower SVC. Dictated by: Ronnei Cheng M.D. on 05/22/2024 at 17:47 Approved by: Ronnie Cheng M.D. on 05/22/2024 at 17:48
[2024-05-22 20:00] VITALS: BP 110/60; PULSE 104; RESP 18; TEMP 36.8; O2SAT 95
[2024-05-23] MEDS: DEXTROSE 5%-LACTATED RINGERS 1,000 ML 100 ML IV ×2 (02:08→17:23)
[2024-05-23] MEDS: PIPERACILLIN/TAZO 3.375 GM in SODIUM CHLORIDE 0.9% 100 ML IV (02:08)
[2024-05-23 04:00] VITALS: BP 103/56; PULSE 89; RESP 20; TEMP 36.8; O2SAT 96
[2024-05-23 06:27] LABS: Add Manual Diff / Slide Review NO; Basophils Absolute Auto 100 /uL (0-100); Basophils Percent Auto 1.3 % (0-2); Eosinophils Absolute Auto 100 /uL (0-450); Hematocrit 27.2 % (41-53); Hemoglobin 9.3 g/dL (13.5-17.5); Lymphocytes Absolute Auto 1400 /uL (1100-4500); Lymphocytes Percent Auto 19.1 % (25-40); Mean Corpuscular Hemoglobin 32.3 PG (26-34); Mean Corpuscular Volume 94.8 fL (80-100); Monocytes Absolute Auto 500 /uL (0-900); Monocytes Percent Auto 7.5 % (3-14); Neutrophils Absolute Auto 5000 /uL (1500-7000); Neutrophils Percent Auto 70.1 % (50-75); Platelet Count 181 X10^3/uL (150-400); Red Blood Cell Count 2.87 X10^6/uL (4.5-5.9); Red Cell Distribution Width 14.5 % (11.6-14.8); White Blood Cell Count 7.1 X10^3/uL (4.5-11.0)
[2024-05-23 06:38] LABS: BUN Creatinine Ratio 9.7 (6-22); Blood Urea Nitrogen 6 mg/dL (9-20); Calcium 7.7 mg/dL (8.4-10.2); Carbon Dioxide 21 mmol/L (22-32); Chloride 112 mmol/L (98-107); Estimated Glomerular Filt Rate > 60 mL/min (>60); Glucose 121 mg/dL (80-110); HEMOLYSIS < 15 (0-50); Potassium 2.8 mmol/L (3.4-5.1); Sodium 138 mmol/L (137-145)
[2024-05-23 08:14] LABS: Magnesium 1.3 mg/dL (1.6-2.3)
[2024-05-23] MEDS: POTASSIUM CHLORIDE IN WATER 10 MEQ/100 ML PIGGYBACK 100 MEQ IV ×6 (08:28→16:29)
[2024-05-23] MEDS: levETIRAcetam 1,000 MG in SODIUM CHLORIDE 0.9% 100 ML 420 MG IV ×2 (08:29→19:38)
[2024-05-23 08:31] VITALS: BP 115/56; PULSE 94
[2024-05-23] MEDS: MAGNESIUM SULFATE 4 GM/100 ML PIGGYBACK IV (09:44)
[2024-05-23] MEDS: HEPARIN 5,000 UNIT/ML VIAL 5000 UNIT SUBCUT (09:45)
[2024-05-23] MEDS: SODIUM CHLORIDE 0.9% FLUSH 10 ML IV ×2 (10:00→20:50)
--- NOTE | 2024-05-23 10:30 | PM.PN.IH.1 ---
Subjective Subjective Date Patient Seen: 05/23/24 Time Patient Seen: 08:20 Interval history: Summary: Patient is a 68-year-old male with history of alcohol dependence and seizure. He presented with intoxication, seizure, and being found down. The patient was intubated in the field and then extubated after being discovered to be DNI. He has not been recovering well and is minimally responsive today. Hospital Course: 05/17: Somnolent. No WD symptoms. 05/17: sedated. Negative ABG and CT brain. 05/18: Some possible myoclonic twitching behavior was noted by the nurse early this morning. Raising the question of intermittent seizure activity. He has been on Keppra 500 IV q.12. 05/20: repeat goals of care discussion: POMani wished to continue limited interventions of fluids, antibiotics, and withdrawal management for a couple more days to see if improvement in mentation. 05/21: repetitive dorsiflexion of R foot, and R arm flexion as well consistent with behavior above. Gave phenobarb x2, increased keppra to 1g. 05/22: Appears comfortable, does not arouse to voice for this provider though reportedly moans verbally to nurse intervention. He is see at bedside with his friend Mariano. 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 Exam Vital Signs (past 8 hours): - 05/23/24 04:00 05/23/24 08:31 Temperature 98.2 F Pulse Rate 89 94 H Respiratory Rate 20 Blood Pressure 103/56 L 115/56 L Pulse Oximetry 96 Oxygen Delivery Method Room Air Oxygen Flow Rate 0 Narrative Exam Narrative: Gen: Somnolent, eyes open, questionable response to voice command. Pulm: Clear. CV: RRR no m/r/g Ext: No edema Neuro: No focal signs or seizure activity. Objective Imaging *: Radiologist's impression: 1. Chest x-ray 05/15/2024: The tip of the endotracheal tube is seen 2.5 cm above the julianne. 2. Cervical spine CT 05/15/2024: Negative for acute fracture. Stable postoperative change. Underlying degenerative change seen. Endotracheal tube noted. 3. Head CT 05/15/2024: No imaging explanation is found for this patient's presenting symptoms. To the limits of this noncontrast study, no findings of intracranial masses or mass effect can be seen. No acute intracranial hemorrhage is seen. 4. Head CT 05/17/2024: No acute intracranial pathology. Labs 05/23/24 06:19 05/23/24 06:19 Labs: Laboratory Results - last 24 hr 05/23/24 06:19 WBC 7.1 RBC 2.87 L Hgb 9.3 L Hct 27.2 L MCV 94.8 MCH 32.3 MCHC 34.0 RDW 14.5 Plt Count 181 Neut % (Auto) 70.1 Lymph % (Auto) 19.1 L [place] % (Auto) 7.5 Eos % (Auto) 2.0 Baso % (Auto) 1.3 Neut # (Auto) 5000 Lymph # (Auto) 1400 [place] # (Auto) 500 Eos # (Auto) 100 Baso # (Auto) 100 Sodium 138 Potassium 2.8 L Chloride 112 H Carbon Dioxide 21 L BUN 6 L Creatinine 0.62 L Estimated GFR > 60 BUN/Creatinine Ratio 9.7 Glucose 121 H Calcium 7.7 L Magnesium 1.3 L PFSH Medical History Cognitive deficits Chronic hyponatremia Left elbow fracture Broken neck Multiple falls Cervical spondylosis with myelopathy Marijuana dependence Osteoarthritis Memory loss Osteoarthrosis Epilepsy, unspecified, not intractable, without status epilepticus Alcohol dependence, uncomplicated Surgical History History of neck surgery History of back surgery H/O foot surgery H/O thumb surgery History of esophagogastroduodenoscopy (EGD) History of colonoscopy Family History Father Cancer Aneurysm Mother Cancer Social History marital status: unknown household members: none lives independently: Yes housing: other ([facility]) Smoking Status: Former smoker alcohol intake: current Assessment & Plan Assessment & Plan narrative: 1. Acute metabolic encephalopathy, likely due to alcohol withdrawal/delirium, questionable aspiration pneumonia 2. Witnessed seizure with new recurrent seizure activity possibly seen on the morning of May 18 and 05/21. 3. Alcohol withdrawal 4. Known seizure disorder 6. Thrombocytopenia 7. Hypernatremia, acute, present on admission, normalized. 8. Hypokalemia and hypomagnesemia PLAN: -levetiracetam 1000 IV q.12 -stop Zosyn IV -D5LR IV -K-riders IV and magnesium IV -minimize treatment for alcohol withdrawal, he is more alert today, improved and weaning lorazepam, off phenobarbital. - MILES is unclear. Prognosis is guarded. -DNR DNI. IH PROFEE Molecular Biology Director Document charge(s): No Charge Codes Subsequent inpatient/observation care: [id number]
[2024-05-23] MEDS: PANTOPRAZOLE 40 MG VIAL IV (12:07)
[2024-05-23 16:00] VITALS: BP 113/68; PULSE 93; RESP 21; TEMP 36.8; O2SAT 98
--- NOTE | 2024-05-23 19:29 | PC.NURSE ---
Pt w/ + guiac stool today. Protonix IV initiated. Heparin injections dc/d.
[2024-05-23 23:16] VITALS: BP 114/54; PULSE 91; RESP 20; TEMP 36.4; O2SAT 97
[2024-05-24] MEDS: DEXTROSE 5%-LACTATED RINGERS 1,000 ML 100 ML IV ×2 (04:12→16:40)
[2024-05-24 05:32] LABS: Add Manual Diff / Slide Review NO; Basophils Absolute Auto 0 /uL (0-100); Basophils Percent Auto 0.7 % (0-2); Eosinophils Absolute Auto 100 /uL (0-450); Eosinophils Percent Auto 1.7 % (2-4); Hematocrit 26.8 % (41-53); Hemoglobin 9.2 g/dL (13.5-17.5); Lymphocytes Absolute Auto 1100 /uL (1100-4500); Lymphocytes Percent Auto 19.5 % (25-40); Mean Corpuscular HGB Conc 34.4 % (30-36); Mean Corpuscular Hemoglobin 32.2 PG (26-34); Mean Corpuscular Volume 93.7 fL (80-100); Monocytes Absolute Auto 500 /uL (0-900); Monocytes Percent Auto 9.1 % (3-14); Neutrophils Absolute Auto 4100 /uL (1500-7000); Platelet Count 203 X10^3/uL (150-400); Red Blood Cell Count 2.86 X10^6/uL (4.5-5.9); Red Cell Distribution Width 14.8 % (11.6-14.8); White Blood Cell Count 5.9 X10^3/uL (4.5-11.0)
[2024-05-24 05:49] LABS: Blood Urea Nitrogen 4 mg/dL (9-20); Calcium 7.8 mg/dL (8.4-10.2); Carbon Dioxide 21 mmol/L (22-32); Chloride 112 mmol/L (98-107); Estimated Glomerular Filt Rate > 60 mL/min (>60); Glucose 116 mg/dL (80-110); HEMOLYSIS < 15 (0-50); Magnesium 1.8 mg/dL (1.6-2.3); Potassium 3.3 mmol/L (3.4-5.1); Sodium 138 mmol/L (137-145)
[2024-05-24] MEDS: POTASSIUM CHLORIDE IN WATER 10 MEQ/100 ML PIGGYBACK 100 MEQ IV ×4 (06:28→11:28)
[2024-05-24 08:00] VITALS: BP 112/62; PULSE 85; RESP 24; TEMP 36.4; O2SAT 93
[2024-05-24] MEDS: PANTOPRAZOLE 40 MG VIAL IV (08:05)
[2024-05-24] MEDS: MORPHINE 4 MG/ML INJ IV ×3 (08:05→23:23)
[2024-05-24] MEDS: SODIUM CHLORIDE 0.9% FLUSH 10 ML IV ×2 (08:06→20:08)
[2024-05-24] MEDS: levETIRAcetam 1,000 MG in SODIUM CHLORIDE 0.9% 100 ML 420 MG IV ×2 (09:15→20:07)
[2024-05-24] MEDS: LORazepam 2 MG/ML INJ 1 MG IV (11:02)
--- NOTE | 2024-05-24 16:16 | CM.DPC ---
DCP Cont: Per MD, pt has remained unresponsive since at least 05/20/24 and continues the same today and will determine if pt to formally switch to Comfort Measures as he also has not had any intake with food or water for those days. SW attempted to call JAYME Vasques and also friend Joel and left msg requesting signatures/assist with finalizing Medicaid LTC application. No one bedside during SW shift today. RAFAEL Sepulveda
--- NOTE | 2024-05-24 16:47 | PM.PN.1 ---
Subjective Subjective Date Patient Seen: 05/24/24 Time Patient Seen: 16:47 Interval history: Chief complaint: Seizure and coma with history a of alcoholism History of present illness: Patient is a 68-year-old male with history of alcohol dependence and seizure. He presented with intoxication, seizure, and being found down. The patient was intubated in the field and then extubated after being discovered to be DNI. He has not been recovering well and is minimally responsive today. Hospital Course: 05/17: Somnolent. No WD symptoms. 05/17: sedated. Negative ABG and CT brain. 05/18: Some possible myoclonic twitching behavior was noted by the nurse early this morning. Raising the question of intermittent seizure activity. He has been on Keppra 500 IV q.12. 05/20: repeat goals of care discussion: POA wished to continue limited interventions of fluids, antibiotics, and withdrawal management for a couple more days to see if improvement in mentation. 05/21: repetitive dorsiflexion of R foot, and R arm flexion as well consistent with behavior above. Gave phenobarb x2, increased keppra to 1g. 05/22: Appears comfortable, does not arouse to voice for this provider though reportedly moans verbally to nurse intervention. He is see at bedside with his friend Mariano. 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 05/24: Patient does not rouse to touch or voice Physical exam: Unresponsive deep breathing Dry oropharynx Premorbid [address] [address] Progress Note Patient: Shine Arthur MR#: [id number] : 1955 Acct:[id number] Age/Sex: 68 / M Admit Date: 05/15/24 Provider: Neo Ballesteros MD ADDENDUMHematocrit fell from 31-27%, with guaiac-positive melenic stools today. Impression: Possible stress-induced gastritis/GI bleed. Plan: -add IV pantoprazole 40 mg daily -monitor hematocrit Addendum Documented By: Neo Ballesteros MD 05/23/24 1136 Addendum Signed By: <Electronically signed by Neo Ballesteros MD> 05/23/24 1136 Subjective Subjective Date Patient Seen: 05/23/24 Time Patient Seen: 08:20 Interval history: Summary: Patient is a 68-year-old male with history of alcohol dependence and seizure. He presented with intoxication, seizure, and being found down. The patient was intubated in the field and then extubated after being discovered to be DNI. He has not been recovering well and is minimally responsive today. Hospital Course: 05/17: Somnolent. No WD symptoms. 05/17: sedated. Negative ABG and CT brain. 05/18: Some possible myoclonic twitching behavior was noted by the nurse early this morning. Raising the question of intermittent seizure activity. He has been on Keppra 500 IV q.12. 05/20: repeat goals of care discussion: POA wished to continue limited interventions of fluids, antibiotics, and withdrawal management for a couple more days to see if improvement in mentation. 05/21: repetitive dorsiflexion of R foot, and R arm flexion as well consistent with behavior above. Gave phenobarb x2, increased keppra to 1g. 05/22: Appears comfortable, does not arouse to voice for this provider though reportedly moans verbally to nurse intervention. He is see at bedside with his friend Mariano. 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 Exam Vital Signs (past 8 hours): - 05/24/2503:00 05/24/2507:31 Temperature 98.2 F Pulse Rate 89 94 H Respiratory Rate 20 Blood Pressure 103/56 L 115/56 L Pulse Oximetry 96 Oxygen Delivery Method Room Air Oxygen Flow Rate 0 Narrative Exam Narrative: Gen: Somnolent, eyes open, questionable response to voice command. Pulm: Clear. CV: RRR no m/r/g Ext: No edema Neuro: No focal signs or seizure activity. Objective Imaging *: Radiologist's impression: 1. Chest x-ray 05/15/2024: The tip of the endotracheal tube is seen 2.5 cm above the julianne. 2. Cervical spine CT 05/15/2024: Negative for acute fracture. Stable postoperative change. Underlying degenerative change seen. Endotracheal tube noted. 3. Head CT 05/15/2024: No imaging explanation is found for this patient's presenting symptoms. To the limits of this noncontrast study, no findings of intracranial masses or mass effect can be seen. No acute intracranial hemorrhage is seen. 4. Head CT 05/17/2024: No acute intracranial pathology. Labs 05/23/24 06:19 05/23/24 06:19 Labs: Laboratory Results - last 24 hr 05/23/24 06:19 WBC 7.1 RBC 2.87 L Hgb 9.3 L Hct 27.2 L MCV 94.8 MCH 32.3 MCHC 34.0 RDW 14.5 Plt Count 181 Neut % (Auto) 70.1 Lymph % (Auto) 19.1 L [place] % (Auto) 7.5 Eos % (Auto) 2.0 Baso % (Auto) 1.3 Neut # (Auto) 5000 Lymph # (Auto) 1400 [place] # (Auto) 500 Eos # (Auto) 100 Baso # (Auto) 100 Sodium 138 Potassium 2.8 L Chloride 112 H Carbon Dioxide 21 L BUN 6 L Creatinine 0.62 L Estimated GFR > 60 BUN/Creatinine Ratio 9.7 Glucose 121 H Calcium 7.7 L Magnesium 1.3 L PFSH Medical History Cognitive deficits Chronic hyponatremia Left elbow fracture Broken neck Multiple falls Cervical spondylosis with myelopathy Marijuana dependence Osteoarthritis Memory loss Osteoarthrosis Epilepsy, unspecified, not intractable, without status epilepticus Alcohol dependence, uncomplicated Surgical History History of neck surgery History of back surgery H/O foot surgery H/O thumb surgery History of esophagogastroduodenoscopy (EGD) History of colonoscopy Family History Father Cancer AneurysmMother Cancer Social History marital status: unknown household members: none lives independently: Yes housing: other ([facility]) Smoking Status: Former smoker alcohol intake: current Assessment & Plan 1. Acute metabolic encephalopathy, likely due to alcohol withdrawal/delirium, questionable aspiration pneumonia 2. Witnessed seizure with new recurrent seizure activity possibly seen on the morning of May 18 and 05/21. 3. Alcohol withdrawal 4. Known seizure disorder 6. Thrombocytopenia 7. Hypernatremia, acute, present on admission, normalized. 8. Hypokalemia and hypomagnesemia PLAN: -levetiracetam 1000 IV q.12 -stop Zosyn IV -D5LR IV -K-riders IV and magnesium IV -minimize treatment for alcohol withdrawal, he is more alert today, improved and weaning lorazepam, off phenobarbital. - MILES is unclear. Prognosis is guarded. -DNR DNI. I spent 25 minutes evaluation of this patient Exam Vital Signs (past 8 hours): Oxygen Delivery Method Room Air Oxygen Flow Rate 0 Objective Labs 05/24/24 05:04 05/24/24 05:04 Labs: Laboratory Results - last 24 hr 05/24/24 05:04 WBC 5.9 RBC 2.86 L Hgb 9.2 L Hct 26.8 L MCV 93.7 MCH 32.2 MCHC 34.4 RDW 14.8 Plt Count 203 Neut % (Auto) 69.0 Lymph % (Auto) 19.5 L [place] % (Auto) 9.1 Eos % (Auto) 1.7 L Baso % (Auto) 0.7 Neut # (Auto) 4100 Lymph # (Auto) 1100 [place] # (Auto) 500 Eos # (Auto) 100 Baso # (Auto) 0 Sodium 138 Potassium 3.3 L Chloride 112 H Carbon Dioxide 21 L BUN 4 L Creatinine 0.57 L Estimated GFR > 60 BUN/Creatinine Ratio 7.0 Glucose 116 H Calcium 7.8 L Magnesium 1.8 PFSH Medical History Cognitive deficits Chronic hyponatremia Left elbow fracture Broken neck Multiple falls Cervical spondylosis with myelopathy Marijuana dependence Osteoarthritis Memory loss Osteoarthrosis Epilepsy, unspecified, not intractable, without status epilepticus Alcohol dependence, uncomplicated Surgical History History of neck surgery History of back surgery H/O foot surgery H/O thumb surgery History of esophagogastroduodenoscopy (EGD) History of colonoscopy Family History Father Cancer Aneurysm Mother Cancer Social History marital status: unknown household members: none lives independently: Yes housing: other ([facility]) Smoking Status: Former smoker alcohol intake: current Assessment & Plan Time-Based Coding :: [TOTAL MINUTES] spent with patient and on the chart (including review of chart, obtaining history, exam, reviewing outside data, placing orders, documenting exam and treatment plan, and counseling patient) on [DATE].
[2024-05-24 17:00] VITALS: BP 129/71; PULSE 88; RESP 24; TEMP 36.4; O2SAT 96
[2024-05-24 20:00] VITALS: BP 132/69; PULSE 91; RESP 24; TEMP 36.7; O2SAT 93
[2024-05-25] MEDS: DEXTROSE 5%-LACTATED RINGERS 1,000 ML 100 ML IV ×2 (03:03→13:05)
[2024-05-25 04:00] VITALS: BP 127/79; PULSE 88; RESP 24; TEMP 36.4; O2SAT 95
[2024-05-25 05:16] LABS: BUN Creatinine Ratio 5.7 (6-22); Blood Urea Nitrogen 3 mg/dL (9-20); Calcium 8.1 mg/dL (8.4-10.2); Carbon Dioxide 23 mmol/L (22-32); Chloride 111 mmol/L (98-107); Estimated Glomerular Filt Rate > 60 mL/min (>60); Glucose 117 mg/dL (80-110); HEMOLYSIS < 15 (0-50); Magnesium 1.6 mg/dL (1.6-2.3); Potassium 3.8 mmol/L (3.4-5.1); Sodium 135 mmol/L (137-145)
[2024-05-25] MEDS: PANTOPRAZOLE 40 MG VIAL IV (08:07)
[2024-05-25] MEDS: SODIUM CHLORIDE 0.9% FLUSH 10 ML IV ×2 (08:08→21:03)
[2024-05-25] MEDS: LORazepam 2 MG/ML INJ 1 MG IV ×3 (08:12→22:40)
[2024-05-25] MEDS: levETIRAcetam 1,000 MG in SODIUM CHLORIDE 0.9% 100 ML 420 MG IV (08:16)
[2024-05-25 12:00] VITALS: BP 144/81; PULSE 96; RESP 27; TEMP 36.6; O2SAT 95
[2024-05-25] MEDS: MORPHINE 4 MG/ML INJ IV ×3 (12:09→21:25)
--- NOTE | 2024-05-25 15:11 | CM.DPC ---
DCP Cont. Reviewed EMR and team rounds for status updates. Met with pt's friend, Joel, at bedside to answer questions. He and Layo had not gone to the bank to find out if Gwendolyn has any money left to assist with possible Medicaid application. CM team has been unable to initia Medicaid application due to lack of information available, and pt's declining status in terms of if he will actually end up passing away here at the hospital. Called Layo, left a message re: Hospitalist wanting to start him on Comfort Care med orders. Monitoring for return call and plan for comfort once we hear back from Layo.
[2024-05-25] MEDS: SCOPOLAMINE 1 PATCH TOP (15:28)
[2024-05-25 16:00] VITALS: BP 158/86; PULSE 98; RESP 24; TEMP 36.6; O2SAT 96
--- NOTE | 2024-05-25 16:22 | P.PN_ITS ---
Subjective Subjective Date Patient Seen: 05/25/24 Time Patient Seen: 16:23 Interval history: Chief complaint: Seizure and coma with history a of alcoholism History of present illness: Patient is a 68-year-old male with history of alcohol dependence and seizure. He presented with intoxication, seizure, and being found down. The patient was intubated in the field and then extubated after being discovered to be DNI. He has not been recovering well and is minimally responsive today. Hospital Course: 05/17: Somnolent. No WD symptoms. 05/17: sedated. Negative ABG and CT brain. 05/18: Some possible myoclonic twitching behavior was noted by the nurse early this morning. Raising the question of intermittent seizure activity. He has been on Keppra 500 IV q.12. 05/20: repeat goals of care discussion: POA wished to continue limited interventions of fluids, antibiotics, and withdrawal management for a couple more days to see if improvement in mentation. 05/21: repetitive dorsiflexion of R foot, and R arm flexion as well consistent with behavior above. Gave phenobarb x2, increased keppra to 1g. 5: Appears comfortable, does not arouse to voice for this provider though reportedly moans verbally to nurse intervention. He is see at bedside with his friend Mariano. 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 7: Patient does not rouse to touch or voice Physical exam: Unresponsive deep breathing Dry oropharynx Premorbid Assessment & Plan Degenerative and terminal Toxic metabolic encephalopathy multifactorial secondary to seizure possible hypoxia, alcohol withdrawal, Wernicke-Korsakoff syndrome, hepatic encephalopathy Comfort measures 35 minutes spent in the evaluation of this patient and communication with POA Exam Vital Signs (past 8 hours): - 05/25/24 12:00 Temperature 97.8 F Pulse Rate 96 H Respiratory Rate 27 H Blood Pressure 144/81 H Pulse Oximetry 95 Oxygen Delivery Method Room Air Oxygen Flow Rate 0 Objective Labs 05/24/24 05:04 05/25/24 04:42 Labs: Laboratory Results - last 24 hr 05/25/24 04:42 Sodium 135 L Potassium 3.8 Chloride 111 H Carbon Dioxide 23 BUN 3 L Creatinine 0.53 L Estimated GFR > 60 BUN/Creatinine Ratio 5.7 L Glucose 117 H Calcium 8.1 L Magnesium 1.6 PFSH Medical History Cognitive deficits Chronic hyponatremia Left elbow fracture Broken neck Multiple falls Cervical spondylosis with myelopathy Marijuana dependence Osteoarthritis Memory loss Osteoarthrosis Epilepsy, unspecified, not intractable, without status epilepticus Alcohol dependence, uncomplicated Surgical History History of neck surgery History of back surgery H/O foot surgery H/O thumb surgery History of esophagogastroduodenoscopy (EGD) History of colonoscopy Family History Father Cancer Aneurysm Mother Cancer Social History marital status: unknown household members: none lives independently: Yes housing: other ([facility]) Smoking Status: Former smoker alcohol intake: current Assessment & Plan Time-Based Coding :: [TOTAL MINUTES] spent with patient and on the chart (including review of chart, obtaining history, exam, reviewing outside data, placing orders, documenting exam and treatment plan, and counseling patient) on [DATE].
[2024-05-25] MEDS: ATROPINE 1% OPHTH 2 DROPS SL ×3 (17:21→22:07)
[2024-05-25 18:00] VITALS: BP 158/86; PULSE 98; RESP 24; TEMP 36.6; O2SAT 96
[2024-05-25 19:50] VITALS: BP 139/87; PULSE 101; RESP 20; TEMP 36.9; O2SAT 94
[2024-05-26] MEDS: ATROPINE 1% OPHTH 2 DROPS SL ×4 (00:36→10:37)
[2024-05-26] MEDS: MORPHINE 10 MG/0.5 ML ORAL SYRINGE PO (00:51)
[2024-05-26] MEDS: MORPHINE 4 MG/ML INJ IV ×4 (01:39→10:37)
[2024-05-26] MEDS: LORazepam 2 MG/ML INJ 1 MG IV (03:25)
[2024-05-26 05:08] VITALS: RESP 28
[2024-05-26 08:00] VITALS: BP 149/82; PULSE 118; RESP 20; TEMP 37.3; O2SAT 88
[2024-05-26] MEDS: PANTOPRAZOLE 40 MG VIAL IV (08:28)
[2024-05-26] MEDS: SODIUM CHLORIDE 0.9% FLUSH 10 ML IV (08:37)
[2024-05-26] MEDS: SCOPOLAMINE 1 PATCH TOP (10:37)
--- NOTE | 2024-05-26 14:16 | P.DN_ITS ---
Discharge Summary History of Illness Narrative: Chief complaint: Seizure and coma with history a of alcoholism History of present illness: Patient is a 68-year-old male with history of alcohol dependence and seizure. He presented with intoxication, seizure, and being found down. The patient was intubated in the field and then extubated after being discovered to be DNI. He has not been recovering well and is minimally responsive today. Hospital Course: 05/17: Somnolent. No WD symptoms. 05/17: sedated. Negative ABG and CT brain. 05/18: Some possible myoclonic twitching behavior was noted by the nurse early this morning. Raising the question of intermittent seizure activity. He has been on Keppra 500 IV q.12. 05/20: repeat goals of care discussion: POA wished to continue limited interventions of fluids, antibiotics, and withdrawal management for a couple more days to see if improvement in mentation. 05/21: repetitive dorsiflexion of R foot, and R arm flexion as well consistent with behavior above. Gave phenobarb x2, increased keppra to 1g. 5: Appears comfortable, does not arouse to voice for this provider though reportedly moans verbally to nurse intervention. He is see at bedside with his friend Mariano. 46: His eyes are open today but he is snoring, not responding to verbal, though perhaps weakly squeezes tire service supervisor to voice commands. 47: Patient does not rouse to touch 4/8: Patient unresponsive on comfort measures 05/26: Patient at 12:54 p.m. Cause of : Alcohol withdrawal with seizure Hospital Course Date of Admission: 05/15/24 15:54 Date of : 05/26/24 Primary care provider: Noris Shipley MD Consults: 05/18/24 12:37 Consult to Speech Therapy Evaluate & Treat Comment: Swallow eval. Physician Instructions: Evaluate and treat 05/25/24 16:19 Consult to Discharge Planning Routine Comment: Objective Labs 05/24/24 05:04 05/25/24 04:42
--- NOTE | 2024-05-26 15:10 | PC.NURSE ---
Day shift: Patient unresponsive all morning. Sounded gurgly, despite suctioning, atropine drops and IV morphine. At 12:50, this RN went into patient's room and noted dramatic change in patient's pallor - chu-tinged. Patient no longer gurgly sounding, agonal breathing. At 12:54, this RN noted no pulse and no signs of breathing. Pulse oximeter did not picker / packer pulse. Listened with stethescope; did not hear heart beat or breath sounds. YE Son was second nurse to confirm no breathing or pulse. Time of 12:54 pm. MD Yip notified. YE Son notified patient's POA - Layo. Patient cleaned, [place], PIV and PICC line removed. Edwardo venegas present to picker / packer body at approximately 1500.
== END 2024-05-26 12:54 | disposition expired | DRG 896 ==
LOC: ED 14:51 → AC 15:55
PROVIDERS: Hospitalist; Internal Medicine; Pharmacist Pharmacist Clinician (PhC)/ Clinical Pharmacy Specialist; Admitting Provider Family Medicine; Emergency Provider Emergency Medicine; Family Provider Internal Medicine; PCP Family Medicine; Referring Provider Emergency Medicine; Visit Provider Family Medicine
DX: F10.231 Alcohol dependence with withdrawal delirium (principal); G92.8 Other toxic encephalopathy; J69.0 Pneumonitis due to inhalation of food and vomit; G93.41 Metabolic encephalopathy; K29.71 Gastritis, unspecified, with bleeding; K72.91 Hepatic failure, unspecified with coma; E87.0 Hyperosmolality and hypernatremia; G40.909 Epilepsy, unspecified, not intractable, without status epilepticus; D69.6 Thrombocytopenia, unspecified; E87.6 Hypokalemia; E83.42 Hypomagnesemia; F10.229 Alcohol dependence with intoxication, unspecified; F10.26 Alcohol dependence with alcohol-induced persisting amnestic disorder; Y90.9 Presence of alcohol in blood, level not specified; Z87.891 Personal history of nicotine dependence; Z51.5 Encounter for palliative care; Z66 Do not resuscitate
CPT/HCPCS: 36415; 36569; 36600; 70450; 71045; 72125; 80048; 80053; 82805; 82962; 83735; 85025; 85027; 94002; 94799; 96361; 96365; 96375; 99285; J0360; J1642; J1644; J1953; J2060; J2250; J2270; J2470; J2543; J2560; J3010; J3475; J7121